=== PATIENT | female | born 1935 | race Caucasian/White ===

== ENCOUNTER 2018-07-21 09:36 | Emergency (ER) | payer OTHER ==
[~2018-07-21] VITALS: Ht 154.9 cm; Wt 82.6 kg
[2018-07-21] MEDS ORDERED: RIVA20TA (11:16)
[2018-07-21] MEDS ORDERED: OMEP20CA12 (11:16)
[2018-07-21] MEDS ORDERED: FURO20TA4 (11:16)
[2018-07-21] MEDS ORDERED: TELM1TAB (11:16)
[2018-07-21] MEDS ORDERED: SOTA80TA (11:16)
[2018-07-21] MEDS ORDERED: IBUP-1779 (11:16)
[2018-07-21] MEDS ORDERED: LEVO25TA5 (11:16)
[2018-07-21] MEDS ORDERED: ATOR40TA70 (11:16)
[2018-07-21 11:28] LABS: BASOPHILS # (AUTO) 0.1 10^3/uL (0.0-0.1); BASOPHILS % (AUTO) 1 % (0-10); EOSINOPHILS # (AUTO) 0.2 10^3/uL (0.0-0.3); EOSINOPHILS % (AUTO) 3 % (0-10); HEMATOCRIT 39 % (35-52); LYMPHOCYTES # (AUTO) 1.5 X 10^3 (1.0-4.0); LYMPHOCYTES % (AUTO) 25 % (12-44); MEAN CORPUSCULAR HEMOGLOBIN 29 PG (25-34); MEAN CORPUSCULAR HGB CONC 33 G/DL (32-36); MEAN CORPUSCULAR VOLUME 89 FL (80-99); MEAN PLATELET VOLUME 10.1 FL (7.4-10.4); MONOCYTES # (AUTO) 0.5 X 10^3 (0.0-1.0); MONOCYTES % (AUTO) 8 % (0-12); NEUTROPHILS # (AUTO) 3.8 X 10^3 (1.8-7.8); NEUTROPHILS % (AUTO) 64 % (42-75); PLATELET COUNT 273 10^3/uL (130-400); RED CELL DISTRIBUTION WIDTH 12.7 % (10.0-14.5)
--- NOTE | 2018-07-21 11:28 | ED Cardiac General ---
History of Present Illness General Chief Complaint: Chest Pain Stated Complaint: LT ARM PAIN Nursing Triage Note: PT PRESENTS TO ED WITH COMPLAINTS L ARM PAIN X 3 DAYS AND CP. PT REPORTS ARM PAIN RADIATES TO HER SHOULDER. PT REPORTS HER ARM PAIN IS WORSE WITH MOVEMENT OF HER ARM. Source: patient Exam Limitations: no limitations History of Present Illness Date Seen by Provider: Jul 21, 2018 Time Seen by Provider: 11:20 Initial Comments The patient is an 82-year-old white female from the [facility]. She reports that she has been having pain in the region of the left shoulder for about 3 days. She also admits to at least an occasional twinge of pain in the chest. She does note that the pain is worse when she moves her arm. She had rather vague chest pain symptoms in 2012 and ultimately had 3 stents placed. She describes no injury or previous troubles with the shoulder. Timing/Duration: 2-3 days Location: substernal, shoulder Activities at Onset: none Prior CP/Workup: cardiac cath, other (stenting 3) NTG SL INSIGHTS MANAGER: No ASA po INSIGHTS MANAGER: No Allergies and Home Medications Allergies Coded Allergies: Penicillins (Verified Allergy, Unknown, 07/21/18) acetaminophen (Verified Allergy, Unknown, 07/21/18) propoxyphene (Verified Allergy, Unknown, 07/21/18) Patient Home Medication List Home Medication List Reviewed: Yes Review of Systems Review of Systems Constitutional: see HPI EENTM: No Symptoms Reported Respiratory: No Symptoms Reported Cardiovascular: See HPI Gastrointestinal: No Symptoms Reported Genitourinary: No Symptoms Reported Musculoskeletal: see HPI Skin: no symptoms reported Psychiatric/Neurological: No Symptoms Reported Endocrine: No Symptoms Reported Hematologic/Lymphatic: No Symptoms Reported Past Embwjlq-Hnvpiu-Arcmdt Hx Patient Social History Alcohol Use: Denies Use Recreational Drug Use: No Smoking Status: Never a Smoker Recent Foreign Travel: No Contact w/Someone Who Travel: No Recent Infectious Disease Expo: No Physical Abuse: No Sexual Abuse: No Mistreated: No Fear: No Past Medical History Surgeries: Yes (STENT X 3) Coronary Stent Respiratory: Yes (UPPER RESP INFECT 3 WEEKS AGO) Coronary Artery Disease, High Cholesterol, Hypertension Neurological: No Genitourinary: No Gastrointestinal: No Musculoskeletal: No Endocrine: Yes Hypothyroidsim Psychosocial: No Blood Disorders: No Physical Exam Vital Signs Vital Signs - First Documented 07/21/18 10:42 Temp 96.6 Pulse 100 Resp 16 B/P (MAP) 165/76 (105) Pulse Ox 97 Capillary Refill : Less Than 3 Seconds Height, Weight, BMI Height: 5'1.00" Weight: 182lbs. oz. 82.347073ly; BMI Method:Stated General Appearance: No Apparent Distress, Anxious HEENT: Normal ENT Inspection Neck: Full Range of Motion, Normal Inspection, Non Tender Respiratory: Chest Non Tender, Lungs Clear, Normal Breath Sounds, No Accessory Muscle Use, No Respiratory Distress Cardiovascular: Regular Rate, Rhythm, No Edema, No Gallop, No JVD, No Murmur Gastrointestinal: Normal Bowel Sounds, No Organomegaly, No Pulsatile Mass, Non Tender Extremity: Normal Capillary Refill, Normal Inspection, Normal Range of Motion, Non Tender, No Calf Tenderness, No Pedal Edema Neurologic/Psychiatric: Alert, Oriented x3, No Motor/Sensory Deficits, Normal Mood/Affect Skin: Normal Color, Warm/Dry Lymphatic: No Adenopathy Other comments There is pain to passive abduction at about 90. There is pain to palpation at over the Rostral portion of the humeral head and along the labrum. Progress/Results/Core Measures Results/Orders Lab Results Laboratory Tests Test 07/21/18 11:07 Range/Units White Blood Count 6.0 4.3-11.0 10^3/uL Red Blood Count 4.42 4.35-5.85 10^6/uL Hemoglobin 13.0 11.5-16.0 G/DL Hematocrit 39 35-52 % Mean Corpuscular Volume 89 80-99 FL Mean Corpuscular Hemoglobin 29 25-34 PG Mean Corpuscular Hemoglobin Concent 33 32-36 G/DL Red Cell Distribution Width 12.7 10.0-14.5 % Platelet Count 273 130-400 10^3/uL Mean Platelet Volume 10.1 7.4-10.4 FL Neutrophils (%) (Auto) 64 42-75 % Lymphocytes (%) (Auto) 25 12-44 % Monocytes (%) (Auto) 8 0-12 % Eosinophils (%) (Auto) 3 0-10 % Basophils (%) (Auto) 1 0-10 % Neutrophils # (Auto) 3.8 1.8-7.8 X 10^3 Lymphocytes # (Auto) 1.5 1.0-4.0 X 10^3 Monocytes # (Auto) 0.5 0.0-1.0 X 10^3 Eosinophils # (Auto) 0.2 0.0-0.3 10^3/uL Basophils # (Auto) 0.1 0.0-0.1 10^3/uL Sodium Level 140 135-145 MMOL/L Potassium Level 3.7 3.6-5.0 MMOL/L Chloride Level 104 98-107 MMOL/L Carbon Dioxide Level 27 21-32 MMOL/L Anion Gap 9 5-14 MMOL/L Blood Urea Nitrogen 37 H 7-18 MG/DL Creatinine 1.34 H 0.60-1.30 MG/DL Estimat Glomerular Filtration Rate 38 BUN/Creatinine Ratio 28 Glucose Level 111 H 70-105 MG/DL Calcium Level 9.7 8.5-10.1 MG/DL Corrected Calcium 9.7 8.5-10.1 MG/DL Total Bilirubin 0.9 0.1-1.0 MG/DL Aspartate Amino Transf (AST/SGOT) 23 5-34 U/L Alanine Aminotransferase (ALT/SGPT) 18 0-55 U/L Alkaline Phosphatase 96 40-136 U/L Troponin I < 0.028 <0.028 NG/ML Total Protein 7.4 6.4-8.2 GM/DL Albumin 4.0 3.2-4.5 GM/DL My Orders Orders - ANNABEL BARKSDALE MD Ekg Tracing (07/21/18 11:20) Cbc With Automated Diff (07/21/18 11:20) Comprehensive Metabolic Panel (07/21/18 11:20) Troponin I (07/21/18 11:20) Chest 1 View, Ap/Pa Only (07/21/18 11:20) Shoulder, Left, 3 Views (07/21/18 11:20) Vital Signs/I&O 07/21/18 10:42 Temp 96.6 Pulse 100 Resp 16 B/P (MAP) 165/76 (105) Pulse Ox 97 Blood Pressure Mean: 105 Departure Communication (Admissions) 1210 findings were discussed with the patient. Troponin was negative cardiogram showed no acute changes. Chest x-ray and left shoulder showed no pathologic changes. The patient was apprised of these findings Impression Primary Impression: left shoulder impingement Disposition: HOME, SELF-CARE Condition: Stable/Unchanged Departure-Patient Inst. Decision time for Depature: 12:11 Referrals: OBI CORREA (PCP) Primary Care Physician Add. Discharge Instructions: All discharge instructions reviewed with patient and/or family. Voiced understanding. Discussed with your provider in [place] relative to the possibility of a cortisone injection in the left shoulder. ANNABEL BARKSDALE MD Jul 21, 2018 11:28
[2018-07-21 11:38] LABS: ALANINE AMINOTRANSFERASE 18 U/L (0-55); ALKALINE PHOSPHATASE 96 U/L (40-136); BILIRUBIN,TOTAL 0.9 MG/DL (0.1-1.0); BUN/CREATININE RATIO 28; CALCIUM 9.7 MG/DL (8.5-10.1); CARBON DIOXIDE 27 MMOL/L (21-32); CHLORIDE 104 MMOL/L (98-107); CREATININE SERUM 1.34 MG/DL (0.60-1.30); GFR ESTIMATED 38; GLUCOSE 111 MG/DL (70-105); POTASSIUM 3.7 MMOL/L (3.6-5.0); SODIUM 140 MMOL/L (135-145); TOTAL PROTEIN 7.4 GM/DL (6.4-8.2)
--- NOTE | 2018-07-21 11:52 | Diagnostic Imaging Report ---
INDICATION: Left shoulder and upper extremity pain. FINDINGS: Single PA view of the chest is obtained. There is air trapping bilaterally. Heart size and pulmonary vascularity are within normal limits. There is mild tortuosity of the thoracic aorta. No consolidation, pneumothorax, or significant pleural fluid is identified. IMPRESSION: No acute abnormality is detected. Dictated by: Dictated on workstation # [id number]
--- NOTE | 2018-07-21 12:07 | NUR ---
IN TALKING TO PT AT THIS TIME.
--- NOTE | 2018-07-21 12:25 | Diagnostic Imaging Report ---
INDICATION: Left arm pain, chest pain. FINDINGS: The glenohumeral joint and AC joints unremarkable. No fracture or dislocation. No abnormal soft tissue calcifications. No opaque loose body. The visualized adjacent ribs and pleura unremarkable. IMPRESSION: Unremarkable three-view left shoulder series. Dictated by: Dictated on workstation # [id number]
[2018-07-21 12:50] VITALS: BP 150/66
== END 2018-07-21 12:50 | disposition home or self-care (01) ==
LOC: ER 09:41
DX: M25.812 Other specified joint disorders, left shoulder (principal); I10 Essential (primary) hypertension; E78.00 Pure hypercholesterolemia, unspecified; I25.10 Atherosclerotic heart disease of native coronary artery without angina pectoris; E03.9 Hypothyroidism, unspecified; Z95.5 Presence of coronary angioplasty implant and graft; Z88.0 Allergy status to penicillin; Z88.5 Allergy status to narcotic agent; Z88.6 Allergy status to analgesic agent
CPT/HCPCS: 36415; 71045; 73030; 80053; 84484; 85025; 93005

== ENCOUNTER 2018-11-14 21:49 | Inpatient (IN) | payer MEDICARE, OTHER ==
[~2018-11-14] VITALS: Ht 162.6 cm; Wt 86.2 kg
[~2018-11-14 21:49] MED LIST: ATOR40TA70 PO; FURO20TA4 PO; IBUP-1779 PO; LEVO25TA5; OMEP20CA12 PO; RIVA20TA2; STL80T; TELM1TAB PO
--- OUTSIDE RECORDS SUMMARY | 2018-11-14 21:52 | XMS REPORT | Continuity of Care Document ---
Author Organization Unknown Address Unknown Allergies There is no data. Medications There is no data. Problems There is no data. Procedures There is no data. Results Test Result Range LIPID PANEL - 10/06/18 08:10 CHOLESTEROL, TOTAL 192 mg/dL <200 HDL CHOLESTEROL 57 mg/dL >50 TRIGLYCERIDES 83 mg/dL <150 LDL-CHOLESTEROL 117 mg/dL (calc) NRG CHOL/HDLC RATIO 3.4 (calc) <5.0 NON HDL CHOLESTEROL 135 mg/dL (calc) <130 CBC - 10/06/18 08:10 WHITE BLOOD CELL COUNT 6.7 Thousand/uL 3.8-10.8 RED BLOOD CELL COUNT 4.46 Million/uL 3.80-5.10 HEMOGLOBIN 13.4 g/dL 11.7-15.5 HEMATOCRIT 40.2 % 35.0-45.0 MCV 90.1 fL 80.0-100.0 MCH 30.0 pg 27.0-33.0 MCHC 33.3 g/dL 32.0-36.0 RDW 12.5 % 11.0-15.0 PLATELET COUNT 257 Thousand/uL 140-400 MPV 10.4 fL 7.5-12.5 ABSOLUTE NEUTROPHILS 4569 cells/uL 1983-0689 ABSOLUTE LYMPHOCYTES 1300 cells/uL 850-3900 ABSOLUTE MONOCYTES 543 cells/uL 200-950 ABSOLUTE EOSINOPHILS 208 cells/uL 15-500 ABSOLUTE BASOPHILS 80 cells/uL 0-200 NEUTROPHILS 68.2 % NRG LYMPHOCYTES 19.4 % NRG MONOCYTES 8.1 % NRG EOSINOPHILS 3.1 % NRG BASOPHILS 1.2 % NRG Encounters ACCT No. Visit Date/Time Discharge Status Pt. Type Provider Facility Loc./Unit Complaint [id number] 10/11/2018 08:00:00 10/11/2018 23:59:59 CLS Outpatient BALDEV [facility]REA [facility] [id number] 10/06/2018 08:00:00 Document Registration
[2018-11-14 22:13] LABS: BASOPHILS # (AUTO) 0.1 10^3/uL (0.0-0.1); BASOPHILS % (AUTO) 1 % (0-10); EOSINOPHILS # (AUTO) 0.3 10^3/uL (0.0-0.3); EOSINOPHILS % (AUTO) 4 % (0-10); HEMATOCRIT 40 % (35-52); HEMOGLOBIN 13.4 G/DL (11.5-16.0); LYMPHOCYTES # (AUTO) 2.1 X 10^3 (1.0-4.0); LYMPHOCYTES % (AUTO) 29 % (12-44); MEAN CORPUSCULAR HEMOGLOBIN 30 PG (25-34); MEAN CORPUSCULAR HGB CONC 34 G/DL (32-36); MEAN CORPUSCULAR VOLUME 88 FL (80-99); MEAN PLATELET VOLUME 9.9 FL (7.4-10.4); MONOCYTES # (AUTO) 0.8 X 10^3 (0.0-1.0); MONOCYTES % (AUTO) 10 % (0-12); NEUTROPHILS % (AUTO) 55 % (42-75); PLATELET COUNT 277 10^3/uL (130-400); RED CELL DISTRIBUTION WIDTH 12.3 % (10.0-14.5); WHITE BLOOD COUNT 7.3 10^3/uL (4.3-11.0)
--- NOTE | 2018-11-14 22:17 | ED Chest Pain ---
General Chief Complaint: Cardiac/General Problems Stated Complaint: LT ARM PAIN Source: patient Exam Limitations: no limitations History of Present Illness Date Seen by Provider: Nov 14, 2018 Time Seen by Provider: 22:00 Initial Comments Patient is an 82-year-old female with history of CAD with multiple stents placed in 2012 at [facility] per Dr. Haywood presents with left arm pain. Patient denies repetitive strain injury or trauma. Arm pain is rated [id number]-esllqtua and is described as aching. Is similar in nature character and pattern his previous coronary disease. It is not associated with nausea vomiting shortness of breath. Patient denies chest pain. No nitroglycerin taken prior to the arrival. Patient's is compliant with blood pressure medication heart medications including Xarelto. No otehr acute symptoms or complaints. Timing/Duration: 4-6 hours Severity/Quality: mild, moderate Location: other (L arm) Radiation: no radiation Activities at Onset: none Prior CP/Workup: cardiac cath Modifying Factors: improves with nitroglycerin ASA po PROGRAM MANAGER TRANSPORTATION: No (Patient declines aspirin in the ED) NTG SL PROGRAM MANAGER TRANSPORTATION: No Associated Symptoms: denies symptoms Allergies and Home Medications Allergies Coded Allergies: Penicillins (Verified Allergy, Unknown, 07/21/18) acetaminophen (Verified Allergy, Unknown, 07/21/18) propoxyphene (Verified Allergy, Unknown, 07/21/18) Patient Home Medication List Home Medication List Reviewed: Yes Review of Systems Review of Systems Constitutional: no symptoms reported EENTM: No Symptoms Reported Respiratory: No Symptoms Reported Cardiovascular: See HPI Gastrointestinal: No Symptoms Reported Genitourinary: No Symptoms Reported Musculoskeletal: no symptoms reported Skin: no symptoms reported Psychiatric/Neurological: No Symptoms Reported, Emotional Problems Hematologic/Lymphatic: No Symptoms Reported Past Ipkimbj-Jsitzi-Xezekf Hx Past Med/Social Hx: Reviewed Nursing Past Med/Soc Hx Patient Social History Recent Foreign Travel: No Contact w/Someone Who Travel: No Past Medical History Surgeries: Yes (STENT X 3) Coronary Stent Respiratory: Yes (UPPER RESP INFECT 3 WEEKS AGO) Coronary Artery Disease, High Cholesterol, Hypertension Neurological: No Genitourinary: No Gastrointestinal: No Musculoskeletal: No Endocrine: Yes Hypothyroidsim Psychosocial: No Blood Disorders: No Physical Exam Vital Signs Vital Signs - First Documented 11/14/18 21:52 Temp 97.3 Pulse 76 Resp 20 B/P (MAP) 205/79 (121) Pulse Ox 98 O2 Delivery Room Air Capillary Refill : Height, Weight, BMI Height: 5'1.00" Weight: 182lbs. oz. 82.228801uk; BMI Method:Stated General Appearance: No Apparent Distress, WD/WN HEENT: PERRL/EOMI, TMs Normal, Normal ENT Inspection Neck: Full Range of Motion, Normal Inspection, Non Tender Respiratory: Chest Non Tender, Lungs Clear, Normal Breath Sounds Cardiovascular: Regular Rate, Rhythm, No Edema, No Gallop, No Murmur Gastrointestinal: Non Tender Extremity: Other (left arm, no pain, tenderness swelling or bruising.) Neurologic/Psychiatric: Alert, Oriented x3, No Motor/Sensory Deficits Skin: Normal Color, Warm/Dry Focused Exam Sepsis Stage: Ruled Out Progress/Results/Core Measures Results/Orders Lab Results Laboratory Tests Test 11/14/18 22:02 Range/Units White Blood Count 7.3 4.3-11.0 10^3/uL Red Blood Count 4.49 4.35-5.85 10^6/uL Hemoglobin 13.4 11.5-16.0 G/DL Hematocrit 40 35-52 % Mean Corpuscular Volume 88 80-99 FL Mean Corpuscular Hemoglobin 30 25-34 PG Mean Corpuscular Hemoglobin Concent 34 32-36 G/DL Red Cell Distribution Width 12.3 10.0-14.5 % Platelet Count 277 130-400 10^3/uL Mean Platelet Volume 9.9 7.4-10.4 FL Neutrophils (%) (Auto) 55 42-75 % Lymphocytes (%) (Auto) 29 12-44 % Monocytes (%) (Auto) 10 0-12 % Eosinophils (%) (Auto) 4 0-10 % Basophils (%) (Auto) 1 0-10 % Neutrophils # (Auto) 4.0 1.8-7.8 X 10^3 Lymphocytes # (Auto) 2.1 1.0-4.0 X 10^3 Monocytes # (Auto) 0.8 0.0-1.0 X 10^3 Eosinophils # (Auto) 0.3 0.0-0.3 10^3/uL Basophils # (Auto) 0.1 0.0-0.1 10^3/uL Sodium Level 136 135-145 MMOL/L Potassium Level 4.2 3.6-5.0 MMOL/L Chloride Level 97 L 98-107 MMOL/L Carbon Dioxide Level 25 21-32 MMOL/L Anion Gap 14 5-14 MMOL/L Blood Urea Nitrogen 43 H 7-18 MG/DL Creatinine 2.08 H 0.60-1.30 MG/DL Estimat Glomerular Filtration Rate 23 BUN/Creatinine Ratio 21 Glucose Level 91 70-105 MG/DL Calcium Level 9.1 8.5-10.1 MG/DL Corrected Calcium 8.9 8.5-10.1 MG/DL Total Bilirubin 0.5 0.1-1.0 MG/DL Aspartate Amino Transf (AST/SGOT) 21 5-34 U/L Alanine Aminotransferase (ALT/SGPT) 18 0-55 U/L Alkaline Phosphatase 107 40-136 U/L Troponin T 19 H <=10 NG/L Total Protein 7.5 6.4-8.2 GM/DL Albumin 4.2 3.2-4.5 GM/DL My Orders Orders - TYRONE VILLARREAL DO Ekg Tracing (11/14/18 22:02) Cbc With Automated Diff (11/14/18 22:02) Comprehensive Metabolic Panel (11/14/18 22:02) Troponin T (11/14/18 22:02) Chest 1 View Ap/Pa Only (11/14/18 22:02) Nitroglycerin 0.4 Mg Btl 25's (Nitrostat (11/14/18 22:15) Medications Given in ED Current Medications Medications Dose Ordered Sig/Ammy Route Start Time Stop Time Status Last Admin Dose Admin Nitroglycerin 1 TAB Q 5 MIN X 3 NEEDED PRN SL 11/14/18 22:15 11/14/18 22:20 0.4 MG Vital Signs/I&O 11/14/18 21:52 Temp 97.3 Pulse 76 Resp 20 B/P (MAP) 205/79 (121) Pulse Ox 98 O2 Delivery Room Air Departure Communication (Admissions) Chest pain syndrome. Pain resolved with nitroglycerin 2. EKG shows sinus rhythm with frequent PACs, no acute ST segment elevation. Borderline troponin elevati on. Patient accepted to [facility] per Dr. Burnett with anticipated cardiology consult. Impression Primary Impression: Acute coronary syndrome Disposition: ADMITTED INPATIENT Condition: Stable Transfer Time Spoke to Accepting Phy: 23:06 (Dr. Burnett) Departure-Patient Inst. Decision time for Depature: 23:06 Referrals: BALDEV CORREA APRN (PCP) Primary Care Physician TYRONE VILLARREAL DO Nov 14, 2018 22:17
[2018-11-14] MEDS: NITROGLYCERIN 0.4 MG SL TABS BTL 25'S SL PRN ×2 (22:20→23:20)
[2018-11-14 22:46] LABS: CREATININE SERUM 2.08 MG/DL (0.60-1.30); POTASSIUM 4.2 MMOL/L (3.6-5.0)
[2018-11-14 22:47] LABS: ALBUMIN 4.2 GM/DL (3.2-4.5); BILIRUBIN,TOTAL 0.5 MG/DL (0.1-1.0); CALCIUM 9.1 MG/DL (8.5-10.1); TOTAL PROTEIN 7.5 GM/DL (6.4-8.2)
[2018-11-14] MEDS ORDERED: ASPIRIN 81 MG CHEW (CHILDREN'S ASA) PO ONE (23:15)
[2018-11-14 23:49] VITALS: BP 138/57
[2018-11-15] VITALS (9 sets, daily range): BP systolic 129–184; BP diastolic 53–78
--- OUTSIDE RECORDS SUMMARY | 2018-11-15 00:07 | XMS REPORT | Continuity of Care Document ---
[...] 10.4 fL 7.5-12.5 ABSOLUTE NEUTROPHILS 4569 cells/uL [id number] ABSOLUTE LYMPHOCYTES 1300 cells/uL 850-3900 ABSOLUTE MONOCYTES 543 cells/uL 200-950 ABSOLUTE EOSINOPHILS 208 cells/uL 15-500 ABSOLUTE BASOPHILS 80 cells/uL 0-200 NEUTROPHILS 68.2 % NRG LYMPHOCYTES 19.4 % NRG MONOCYTES 8.1 % NRG EOSINOPHILS 3.1 % NRG BASOPHILS 1.2 % NRG Encounters ACCT No. Visit Date/Time Discharge Status Pt. Type Provider Facility Loc./Unit Complaint [id number] 10/11/2018 08:00:00 10/11/2018 23:59:59 CLS Outpatient [facility] [id number] 10/06/2018 08:00:00 Document Registration
--- NOTE | 2018-11-15 01:05 | NUR ---
LOU WOODRUFF admitted to room 419-1, with an admitting diagnosis of Acute coronary syndrome, on 11/14/18 from ED via EMS, accompanied by EMS STAFF. LOU WOODRUFF introduced to surroundings, call light, bed controls, phone, TV, temperature control, lights, meal times, smoking policy, visitor policy, side rail policy, bathrooms and showers. Patient Rights given to patient in the handbook. LOU WOODRUFF verbalizes understanding that [facility] is not responsible for the loss or damage to any personal effects or valuables that are kept in the patients posession during their hospitalization. Patient Care Plans were discussed with the PT. LOU WOODRUFF verbalizes understanding of Interdisciplinary Patient Education. Patient and/or family were informed about the Rapid Response Team and its purpose.
[2018-11-15] MEDS ORDERED: D5 1/2 NS 1000 ML IV SOLUTION 1,000 ML IV SCH (02:15)
[2018-11-15] MEDS ORDERED: NITROGLYCERIN 0.4 MG SL TABS BTL 25'S SL PRN (02:15)
[2018-11-15 05:39] LABS: BASOPHILS # (AUTO) 0.1 10^3/uL (0.0-0.1); BASOPHILS % (AUTO) 1 % (0-10); EOSINOPHILS # (AUTO) 0.3 10^3/uL (0.0-0.3); EOSINOPHILS % (AUTO) 5 % (0-10); HEMATOCRIT 35 % (35-52); LYMPHOCYTES # (AUTO) 1.9 X 10^3 (1.0-4.0); LYMPHOCYTES % (AUTO) 30 % (12-44); MEAN CORPUSCULAR HEMOGLOBIN 30 PG (25-34); MEAN CORPUSCULAR HGB CONC 34 G/DL (32-36); MEAN CORPUSCULAR VOLUME 88 FL (80-99); MEAN PLATELET VOLUME 10.2 FL (7.4-10.4); MONOCYTES # (AUTO) 0.6 X 10^3 (0.0-1.0); MONOCYTES % (AUTO) 10 % (0-12); NEUTROPHILS # (AUTO) 3.3 X 10^3 (1.8-7.8); NEUTROPHILS % (AUTO) 54 % (42-75); PLATELET COUNT 218 10^3/uL (130-400); RED CELL DISTRIBUTION WIDTH 12.3 % (10.0-14.5); WHITE BLOOD COUNT 6.2 10^3/uL (4.3-11.0)
[2018-11-15 06:00] LABS: ALANINE AMINOTRANSFERASE 16 U/L (0-55); ALBUMIN 3.6 GM/DL (3.2-4.5); ALKALINE PHOSPHATASE 92 U/L (40-136); BILIRUBIN,TOTAL 0.5 MG/DL (0.1-1.0); BUN/CREATININE RATIO 25; CALCIUM 8.9 MG/DL (8.5-10.1); CARBON DIOXIDE 25 MMOL/L (21-32); CHLORIDE 103 MMOL/L (98-107); CHOLESTEROL 145 MG/DL (< 200); CREATININE SERUM 1.63 MG/DL (0.60-1.30); GFR ESTIMATED 30; GLUCOSE 128 MG/DL (70-105); HDL CHOLESTEROL 43 MG/DL (40-60); POTASSIUM 3.6 MMOL/L (3.6-5.0); SODIUM 137 MMOL/L (135-145); TOTAL PROTEIN 6.3 GM/DL (6.4-8.2); TRIGLYCERIDES 68 MG/DL (<150); VLDL CHOLESTEROL 14 MG/DL (5-40)
--- NOTE | 2018-11-15 06:39 | Diagnostic Imaging Report ---
INDICATION: Left arm pain, history of myocardial infarction. COMPARISON STUDY: Chest from July 21. FINDINGS: Frontal view of the chest demonstrates the lungs to be clear. The heart size and vascularity are normal. Tortuosity of the aorta is again identified. IMPRESSION: There are no acute findings. Dictated by: Dictated on workstation # [id number]
--- NOTE | 2018-11-15 08:21 | Consultation-Cardiology ---
HPI-Cardiology Cardiology Consultation Date of Consultation 11/15/18 Date of Admission Time Seen by Provider: 08:17 Indication: chest pain HPI 82 years old lady with history of coronary artery disease, hypertension hyperlipidemia, has been having left arm pain similar to the pain that she had prior to her stents, waxing and waning, got worse yesterday, responded to nitroglycerin, currently feeling better. Denied any active pain, having some dyspnea on exertion. No palpitation, syncope or near syncopal episodes. No claudications Home Medications & Allergies Allergies: Coded Allergies: Penicillins (Verified Allergy, Unknown, 07/21/18) propoxyphene (Verified Allergy, Unknown, 07/21/18) Home Medication List Reviewed: Yes ZAX-Sljaum-Jbtcyx Hx Patient Social History Marital Status: Employed/Student: retired Alcohol Use: Denies Use Recreational Drug Use: No 2nd Hand Smoke Exposure: No Recent Foreign Travel: No Recent Infectious Disease Expo: No Recent Hopitalizations: No Immunizations Up To Date Date of Pneumonia Vaccine: Nov 15, 2013 Past Medical History discussed below Family Medical History Family Medical Hx noncontributory to her current condition Review of Systems-General Review of Systems Constitutional: no symptoms reported, see HPI, malaise EENTM: see HPI, no symptoms reported Respiratory: see HPI; No cough; dyspnea on exertion; No hemoptysis, No orthopnea, No phlegm, No short of breath, No stridor, No wheezing, No other Cardiovascular: see HPI, chest pain; No edema, No Hx of Intervention, No palpitations, No syncope, No vascular heart diseas, No other Gastrointestinal: no symptoms reported, see HPI Genitourinary: no symptoms reported, see HPI Musculoskeletal: see HPI Skin: no symptoms reported, see HPI Psychiatric/Neurological: No Symptoms Reported, See HPI, Emotional Problems Reviewed Test Results Reviewed Test Results Lab Laboratory Tests Test 11/14/18 22:02 11/15/18 05:05 Range/Units White Blood Count 7.3 6.2 4.3-11.0 10^3/uL Red Blood Count 4.49 4.00 L 4.35-5.85 10^6/uL Hemoglobin 13.4 12.0 11.5-16.0 G/DL Hematocrit 40 35 35-52 % Mean Corpuscular Volume 88 88 80-99 FL Mean Corpuscular Hemoglobin 30 30 25-34 PG Mean Corpuscular Hemoglobin Concent 34 34 32-36 G/DL Red Cell Distribution Width 12.3 12.3 10.0-14.5 % Platelet Count 277 218 130-400 10^3/uL Mean Platelet Volume 9.9 10.2 7.4-10.4 FL Neutrophils (%) (Auto) 55 54 42-75 % Lymphocytes (%) (Auto) 29 30 12-44 % Monocytes (%) (Auto) 10 10 0-12 % Eosinophils (%) (Auto) 4 5 0-10 % Basophils (%) (Auto) 1 1 0-10 % Neutrophils # (Auto) 4.0 3.3 1.8-7.8 X 10^3 Lymphocytes # (Auto) 2.1 1.9 1.0-4.0 X 10^3 Monocytes # (Auto) 0.8 0.6 0.0-1.0 X 10^3 Eosinophils # (Auto) 0.3 0.3 0.0-0.3 10^3/uL Basophils # (Auto) 0.1 0.1 0.0-0.1 10^3/uL Sodium Level 136 137 135-145 MMOL/L Potassium Level 4.2 3.6 3.6-5.0 MMOL/L Chloride Level 97 L 103 98-107 MMOL/L Carbon Dioxide Level 25 25 21-32 MMOL/L Anion Gap 14 9 5-14 MMOL/L Blood Urea Nitrogen 43 H 40 H 7-18 MG/DL Creatinine 2.08 H 1.63 H 0.60-1.30 MG/DL Estimat Glomerular Filtration Rate 23 30 BUN/Creatinine Ratio 21 25 Glucose Level 91 128 H 70-105 MG/DL Calcium Level 9.1 8.9 8.5-10.1 MG/DL Corrected Calcium 8.9 9.2 8.5-10.1 MG/DL Total Bilirubin 0.5 0.5 0.1-1.0 MG/DL Aspartate Amino Transf (AST/SGOT) 21 20 5-34 U/L Alanine Aminotransferase (ALT/SGPT) 18 16 0-55 U/L Alkaline Phosphatase 107 92 40-136 U/L Troponin T 19 H <=10 NG/L Total Protein 7.5 6.3 L 6.4-8.2 GM/DL Albumin 4.2 3.6 3.2-4.5 GM/DL Troponin I < 0.028 <0.028 NG/ML Triglycerides Level 68 <150 MG/DL Cholesterol Level 145 < 200 MG/DL LDL Cholesterol Direct 89 1-129 MG/DL VLDL Cholesterol 14 5-40 MG/DL HDL Cholesterol 43 40-60 MG/DL Physical Exam Physical Exam Vital Signs Vital Signs - First Documented 11/14/18 21:52 Temp 97.3 Pulse 76 Resp 20 B/P (MAP) 205/79 (121) Pulse Ox 98 O2 Delivery Room Air Capillary Refill : Less Than 3 Seconds Height, Weight, BMI Height: 5'4.00" Weight: 190lbs. 0.7oz. 86.756837dw; 32.6 BMI Method:Stated General Appearance: No Apparent Distress, WD/WN HEENT: PERRL/EOMI, TMs Normal, Normal ENT Inspection Neck: Full Range of Motion, Normal Inspection, Non Tender Respiratory: Chest Non Tender, Lungs Clear, Normal Breath Sounds Cardiovascular: Regular Rate, Rhythm, No Edema, No Gallop, No Murmur Gastrointestinal: Non Tender Extremity: Other (left arm, no pain, tenderness swelling or bruising.) Neurologic/Psychiatric: Alert, Oriented x3, No Motor/Sensory Deficits Skin: Normal Color, Warm/Dry A/P-Cardiology Admission Diagnosis Chest pain Coronary artery disease Hypertension Hyperlipidemia Assessment/Plan Chest pain, resulting in angina, cardiac enzymes and EKG did not show any acute abnormality. Currently pain-free. Coronary artery disease, history of multiple intervention the past, had a total of 3 stents. No recent Cardec workup, planning to evaluate stress test Paroxysmal atrial fibrillation, maintained on sotalol and Xarelto. Continue to monitor Hypertension, monitor blood pressure Hyperlipidemia. Monitor lipids Prediabetes Clinical Quality Measures AMI/AHF: ASA po Prior to arrival: No (Patient declines aspirin in the ED) DVT/VTE Risk/Contraindication: Risk Factor Score Per Nursin RFS Level Per Nursing on Admit: 2=Moderate GEOFF THOMSON MD Nov 15, 2018 08:21
[2018-11-15] MEDS ORDERED: REGADENOSON 0.4 MG/5 ML SYR (LEXISCAN) IV ONE ×2 (08:30→09:01)
[2018-11-15] MEDS ORDERED: LEVO25TA2 PO (08:38)
[2018-11-15] MEDS ORDERED: SOTA80TA62 PO (08:38)
[2018-11-15] MEDS ORDERED: RIVA20TA PO (08:38)
[2018-11-15] MEDS ORDERED: CATHETER FLUSH 10 ML SYR IV PRN (08:45)
--- NOTE | 2018-11-15 08:49 | NUR ---
PATIENT OUT OF ROOM AT THIS TIME, I UPDATED THE MED REC WITH THE EXT MED HX. I WILL CHECK BACK LATER TO VERIFY WITH THE PATIENT. Addendum: 11/15/18 at 1032 by TAMARA MACHADO [facility] WENT OVER THE EXT MED HX WITH THE PATIENT, SHE WAS ABLE TO TELL ME WHAT TIMES SHE TAKES EACH MEDICATION. SHE TAKES MAGNESIUM OTC DAILY.
[2018-11-15] MEDS ORDERED: MAGN500C15 PO (10:29)
[2018-11-15] MEDS: NS IV 1000 ML 1,000 ML IV SCH ×2 (13:02→23:46)
[2018-11-15 13:32] LABS: INR 1.5 (0.8-1.4); PROTHROMBIN TIME PATIENT 18.8 SEC (12.2-14.7)
--- NOTE | 2018-11-15 14:22 | STRESS TEST ---
DATE OF SERVICE: 11/15/2018 LEXISCAN MYOVIEW STRESS TEST REFERRING PHYSICIAN: Dr. Burnett. Baseline heart rate is 72. Baseline blood pressure is 191/92. Baseline EKG is sinus rhythm with no ischemic changes. In summary, the patient was injected with 9.05 mCi of technetium-99 Myoview and the resting images were obtained. Then, the patient received 0.4 mg of Lexiscan followed by 27.1 mCi of technetium-99 Myoview. Throughout the test, there were no EKG changes. The resting and stress images were reviewed and compared in the short axis, horizontal long axis, and vertical long axis views. Review of the images showed reversible ischemia involving the inferior wall and inferolateral wall. SSS is 7, SDS 5, TID value 1.19. On the gated images, the left ventricle appeared to be normal size with normal contractility. Calculated ejection fraction is 74%. CONCLUSION: 1. The patient tolerated Lexiscan well. 2. Reversible ischemia involving the inferior wall and inferolateral wall. 3. Normal left ventricular size with normal contractility. Calculated ejection fraction is 75%. Job ID: [id number] DocumentID: [id number] Dictated Date: 11/15/2018 12:08:51 Sports Development Officer Date: 11/15/2018 14:21:50 Dictated By: GEOFF THOMSON MD
--- NOTE | 2018-11-15 14:32 | History & Physicial ([facility]) ---
HPI History of Present Illness: 82 yo F that presented to ER with left arm pain and numbness. States that it is similar pain to when she had her heart attack and stents placed last time. She just returned from stress test and she states that her arm pain came back during the test. Denies any chest pain or shortness of breath. Has a h/o stent placeme nt in 2012 and follows with cardiology in [place]. No recent US. Has had episodes of A fib in the past and is on blood thinner. Source: patient, family (Daughter) Exam Limitations: no limitations Date seen by provider: Nov 15, 2018 Time Seen by Provider: 10:15 Attending Physician Flor Burnett MD PCP Niyah Lopez Aprn Consult Date of Admission Nov 14, 2018 at 23:00 Home Medications Home Medications Reviewed patient Home Medication Reconciliation performed by pharmacy medication reconciliations health care sanitary technician and/or nursing. Patients Allergies have been reviewed. Allergies Coded Allergies: Penicillins (Verified Allergy, Unknown, 07/21/18) acetaminophen (Verified Allergy, Unknown, 07/21/18) propoxyphene (Verified Allergy, Unknown, 07/21/18) BIR-[place]-Nvivcs Hx Patient Social History Marrital Status: Employed/Student: retired Alcohol Use: Denies Use Recreational Drug Use: No 2nd Hand Smoke Exposure: No Recent Foreign Travel: No Contact w/other who traveled: No Recent Hopitalizations: No Recent Infectious Disease Expo: No Immunizations Up To Date Date of Pneumonia Vaccine: Nov 15, 2013 Past Medical History CAD w/ 2 stents placed in 2012 Pre DM HTN Hypothyroidism Family Medical History Significant Family History: CAD Under 55 Years Old, CAD Over 55 Years Old, Diabetes, Stroke Review of Systems ([facility]) Constitutional: no symptoms reported EENTM: no symptoms reported; No nose congestion, No throat pain, No throat swelling Respiratory: no symptoms reported; No cough, No dyspnea on exertion, No short of breath Cardiovascular: chest pain; No edema, No palpitations Gastrointestinal: no symptoms reported; No abdominal pain, No constipation, No diarrhea, No nausea, No vomiting Genitourinary: no symptoms reported; No dysuria, No frequency, No hematuria Musculoskeletal: no symptoms reported Skin: no symptoms reported Psychiatric/Neurological: No Symptoms Reported Reviewed Test Results Reviewed Test Results Lab Laboratory Tests Test 11/14/18 22:02 11/15/18 05:05 11/15/18 13:05 Range/Units White Blood Count 7.3 6.2 4.3-11.0 10^3/uL Red Blood Count 4.49 4.00 L 4.35-5.85 10^6/uL Hemoglobin 13.4 12.0 11.5-16.0 G/DL Hematocrit 40 35 35-52 % Mean Corpuscular Volume 88 88 80-99 FL Mean Corpuscular Hemoglobin 30 30 25-34 PG Mean Corpuscular Hemoglobin Concent 34 34 32-36 G/DL Red Cell Distribution Width 12.3 12.3 10.0-14.5 % Platelet Count 277 218 130-400 10^3/uL Mean Platelet Volume 9.9 10.2 7.4-10.4 FL Neutrophils (%) (Auto) 55 54 42-75 % Lymphocytes (%) (Auto) 29 30 12-44 % Monocytes (%) (Auto) 10 10 0-12 % Eosinophils (%) (Auto) 4 5 0-10 % Basophils (%) (Auto) 1 1 0-10 % Neutrophils # (Auto) 4.0 3.3 1.8-7.8 X 10^3 Lymphocytes # (Auto) 2.1 1.9 1.0-4.0 X 10^3 Monocytes # (Auto) 0.8 0.6 0.0-1.0 X 10^3 Eosinophils # (Auto) 0.3 0.3 0.0-0.3 10^3/uL Basophils # (Auto) 0.1 0.1 0.0-0.1 10^3/uL Sodium Level 136 137 135-145 MMOL/L Potassium Level 4.2 3.6 3.6-5.0 MMOL/L Chloride Level 97 L 103 98-107 MMOL/L Carbon Dioxide Level 25 25 21-32 MMOL/L Anion Gap 14 9 5-14 MMOL/L Blood Urea Nitrogen 43 H 40 H 7-18 MG/DL Creatinine 2.08 H 1.63 H 0.60-1.30 MG/DL Estimat Glomerular Filtration Rate 23 30 BUN/Creatinine Ratio 21 25 Glucose Level 91 128 H 70-105 MG/DL Calcium Level 9.1 8.9 8.5-10.1 MG/DL Corrected Calcium 8.9 9.2 8.5-10.1 MG/DL Total Bilirubin 0.5 0.5 0.1-1.0 MG/DL Aspartate Amino Transf (AST/SGOT) 21 20 5-34 U/L Alanine Aminotransferase (ALT/SGPT) 18 16 0-55 U/L Alkaline Phosphatase 107 92 40-136 U/L Troponin T 19 H <=10 NG/L Total Protein 7.5 6.3 L 6.4-8.2 GM/DL Albumin 4.2 3.6 3.2-4.5 GM/DL Troponin I < 0.028 <0.028 NG/ML Triglycerides Level 68 <150 MG/DL Cholesterol Level 145 < 200 MG/DL LDL Cholesterol Direct 89 1-129 MG/DL VLDL Cholesterol 14 5-40 MG/DL HDL Cholesterol 43 40-60 MG/DL Prothrombin Time 18.8 H 12.2-14.7 SEC INR Comment 1.5 H 0.8-1.4 Activated Partial Thromboplast Time 36 H 24-35 SEC Physical Exam-([facility]) Physical Exam Vital Signs VS - Last 72 Hours, by Label 11/14/18 11/14/18 11/14/18 11/15/18 21:52 23:49 23:50 01:18 Temp 97.3 97.8 Pulse 76 54 53 55 Resp 20 20 18 18 B/P (MAP) 205/79 (121) 138/57 (84) 138/57 (84) 160/72 Pulse Ox 98 97 97 97 O2 Delivery Room Air Room Air Room Air 11/15/18 11/15/18 11/15/18 11/15/18 01:30 02:28 03:43 07:00 Temp 97.6 Pulse 52 58 60 Resp 18 B/P (MAP) 143/76 (98) Pulse Ox 97 96 O2 Delivery Room Air Room Air 11/15/18 11/15/18 11/15/18 11/15/18 08:00 08:00 12:00 12:00 Temp 98.6 98.3 Pulse 50 55 54 Resp 18 20 B/P (MAP) 152/76 (101) 184/75 (111) Pulse Ox 99 99 95 O2 Delivery Room Air Room Air Room Air 11/15/18 12:00 Temp 98.3 Pulse 55 Resp 20 B/P (MAP) 184/75 (111) Pulse Ox 95 O2 Delivery Room Air Capillary Refill : Less Than 3 Seconds General Appearance: WD/WN, no apparent distress HEENT: PERRL/EOMI Neck: non-tender, full range of motion, supple Respiratory: chest non-tender, lungs clear, normal breath sounds, no respiratory distress Cardiovascular: normal peripheral pulses, regular rate, rhythm, no edema, no murmur Gastrointestinal: normal bowel sounds, non tender, soft, no organomegaly Back: no CVA tenderness, no vertebral tenderness Extremities: no calf tenderness, normal capillary refill, pedal edema (1+) Neurologic/Psychiatric: chin strap maker II-XII nml as tested, no motor/sensory deficits, alert, normal mood/affect, oriented x 3 Skin: normal color, warm/dry Lymphatic: no adenopathy Assessment/Plan Assessment/Plan Admission Status: Inpatient Order (span 2 midnights) Reason for Inpatient Admission: Patient needs stress and possible cath (1) Angina at rest Status: Acute Assessment & Plan: - Stress test this AM, results pending, Repeat Trop neg, Cardiology consulted (2) CAD (coronary artery disease) Status: Chronic Qualifiers: Qualified Codes: I25.110 - Atherosclerotic heart disease of [place] coronary artery with unstable angina pectoris (3) HTN (hypertension) Status: Chronic Qualifiers: Qualified Codes: I10 - Essential (primary) hypertension (4) HLD (hyperlipidemia) Status: Chronic Qualifiers: Qualified Codes: E78.5 - Hyperlipidemia, unspecified (5) Atrial fibrillation Status: Chronic Assessment & Plan: - On Eliquis Qualifiers: Qualified Codes: I48.0 - Paroxysmal atrial fibrillation (6) Acute kidney insufficiency Status: Acute Assessment & Plan: - Likely 2/2 dehydration, will continue to monitor with hydration Clinical Quality Measures AMI/AHF: ASA po Prior to arrival: No (Patient declines aspirin in the ED) DVT/VTE Risk/Contraindication: Risk Factor Score Per Nursin RFS Level Per Nursing on Admit: 2=Moderate FLOR BURNETT MD Nov 15, 2018 14:32
[2018-11-15] MEDS ORDERED: fentaNYL INJECTION 100 MCG/2 ML AMP ONE (16:04)
[2018-11-15] MEDS ORDERED: MIDAZOLAM 5 MG/5 ML (VERSED) VIAL ONE (16:04)
[2018-11-15] MEDS ORDERED: LIDOCAINE 1% INJ 20 ML 20 ML VIAL ONE (16:04)
[2018-11-15] MEDS ORDERED: HEParin (CATH LAB) 1,000 ML IV ONE ×2 (16:04→16:05)
[2018-11-15] MEDS ORDERED: ACETAMINOPHEN 325 MG TABLET ONE (16:11)
[2018-11-15] MEDS: ACETAMINOPHEN 325 MG TABLET PO PRN (16:20)
--- NOTE | 2018-11-15 17:13 | Cardiac Cath Report ---
Cardiac Cath Report Physician (s)/Citizenship Teacher (s) Physician GEOFF THOMSON MD Pre-Procedure Diagnosis Pre-Procedure Diagnosis: chest pain, coronary artery disease Post-Procedure Note Procedure Start Date: Nov 15, 2018 Name of Procedure: Left heart catheterization Findings/Procedure Note PROCEDURE NOTE: 82 years old lady with history of coronary artery disease multiple intervention, has been having chest pain, admitted to the hospital, Cardec enzymes were negative, underwent stress test which showed inferior wall ischemia. After explaining the procedure to the patient, all pros and cons were explained, all questions were answered. The patient signed the consent and then she was placed on the cardiac catheterization laboratory. Groin was prepped SL fashion local anesthesia was used. Sheath placed in the right femoral artery. Ramirez right and left catheter were used to access the coronary system. Pigtail was used to access the left ventricular cavity. Left ventriculogram was not done, pressure was measured At the end of the procedure the sheath was removed. Closure device was used FINDINGS: Hemodynamics LV 151/20, end-diastolic pressure of 20 Aorta 166/68 mean of 79 ANATOMY: Left Main is calcified with moderate stenosis at the midportion Left Anterior Descending is small to moderate in size with mild disease nonobstructive disease Left Circumflex is moderate in size, stent in the mid circumflex artery is patent with good flow Right Coronory Artery is dominant artery, heavily calcified artery at the ostium with moderate stenosis, 2 stents at the midportion that are patent, small vessel disease distally LV Gram was not done, pressure was measured CONCLUSION: 1. Moderate stenosis at the ostium of the right coronary artery that is heavily calcified, 2 stents in the midright coronary artery are patent with small vessel disease distally. No significant obstructive disease was noted. 2. Calcified left main coronary artery with moderate stenosis nonobstructive disease 3. Patent stent in the mid circumflex artery with no obstructive disease 4. Mild disease in the LAD 5. Mildly elevated left ventricular end-diastolic pressure, small gradient across the aortic valve DISCUSSION AND RECOMMENDATION: patient has small vessel disease in the right coronary artery and heavily calcified ostial right coronary artery lesion that might be responsible for the ischemia on the recurrent chest pain, I recommend maximizing medical therapy, will consider high risk intervention to the ostium of the right coronary artery, continue to monitor the lesion in the left main Anesthesia Type: Conscious Sedation Estimated blood loss (mL): 25 ml Contrast Amount: 30 ml Total Radiation Dose: 471 mGy Post-Procedure Diagnosis Post-operative diagnosis: Unstable angina Coronary artery disease Hypertension Hyperlipidemia GEOFF THOMSON MD Nov 15, 2018 17:13
[2018-11-15] MEDS ORDERED: NON-FORMULARY MEDICATION 1 EA EA (Ibuprofen 400 MG) PO PRN (17:15)
[2018-11-15] MEDS ORDERED: IBUPROFEN TABLET 200 MG TAB PO PRN (17:30)
[2018-11-15] MEDS ORDERED: ATORVASTATIN 40 MG (LIPITOR) TABLET PO SCH (18:00)
[2018-11-15] MEDS ORDERED: RIVAROXABAN 20 MG TABLET (XARELTO) PO SCH (18:00)
[2018-11-15] MEDS ORDERED: SOTALOL HCL 40 MG PO SCH (21:00)
[2018-11-15] MEDS: SOTALOL 80 MG (BETAPACE) TAB PO SCH (21:17)
--- NOTE | 2018-11-15 22:22 | NUR ---
Pt transferred to rm [id number]- report given to Nicole
--- NOTE | 2018-11-15 22:30 | NUR ---
Patient transferred from ICU accompanied by staff and family. Personal belongings with patient. Report received from Ekta. Voices no complain at times time
[2018-11-16] VITALS: BP 143/67
[2018-11-16] MEDS: ACETAMINOPHEN 325 MG TABLET PO PRN (03:54)
[2018-11-16 04:00] VITALS: BP 164/72
[2018-11-16] MEDS ORDERED: FUROSEMIDE 20 MG (LASIX) TAB PO SCH (05:00)
[2018-11-16] MEDS ORDERED: LEVOTHYROXINE 25 MCG (LEVOTHROID) TAB PO SCH (05:00)
[2018-11-16 05:58] LABS: BASOPHILS % (AUTO) 1 % (0-10); EOSINOPHILS # (AUTO) 0.2 10^3/uL (0.0-0.3); EOSINOPHILS % (AUTO) 3 % (0-10); HEMATOCRIT 35 % (35-52); HEMOGLOBIN 11.8 G/DL (11.5-16.0); LYMPHOCYTES # (AUTO) 1.2 X 10^3 (1.0-4.0); LYMPHOCYTES % (AUTO) 18 % (12-44); MEAN CORPUSCULAR HEMOGLOBIN 30 PG (25-34); MEAN CORPUSCULAR HGB CONC 34 G/DL (32-36); MEAN CORPUSCULAR VOLUME 89 FL (80-99); MEAN PLATELET VOLUME 10.1 FL (7.4-10.4); MONOCYTES # (AUTO) 0.7 X 10^3 (0.0-1.0); MONOCYTES % (AUTO) 11 % (0-12); NEUTROPHILS # (AUTO) 4.3 X 10^3 (1.8-7.8); NEUTROPHILS % (AUTO) 67 % (42-75); PLATELET COUNT 211 10^3/uL (130-400); RED CELL DISTRIBUTION WIDTH 12.5 % (10.0-14.5); WHITE BLOOD COUNT 6.5 10^3/uL (4.3-11.0)
[2018-11-16 06:16] LABS: INR 1.3 (0.8-1.4); PROTHROMBIN TIME PATIENT 16.3 SEC (12.2-14.7)
[2018-11-16 06:31] LABS: ALBUMIN 3.4 GM/DL (3.2-4.5); BILIRUBIN,TOTAL 0.5 MG/DL (0.1-1.0); CALCIUM 9.1 MG/DL (8.5-10.1); CREATININE SERUM 1.29 MG/DL (0.60-1.30); POTASSIUM 4.2 MMOL/L (3.6-5.0); TOTAL PROTEIN 6.1 GM/DL (6.4-8.2)
[2018-11-16] MEDS ORDERED: [UNRECOGNIZED DRUG - OTHER] PO SCH (07:00)
[2018-11-16] MEDS ORDERED: OMEPRAZOLE 20 MG (PriLOSEC) CAP NON-FORMULARY PO SCH (07:00)
[2018-11-16] MEDS ORDERED: LOSARTAN 100 MG (COZAAR) TABLET PO SCH (07:00)
[2018-11-16] MEDS ORDERED: PANTOPRAZOLE 20 MG TABLET (PROTONIX) PO SCH (07:00)
[2018-11-16] MEDS ORDERED: HYDROCHLOROTHIAZIDE 25 MG (HCTZ) TAB PO SCH (07:00)
[2018-11-16 08:00] VITALS: BP 161/70
--- NOTE | 2018-11-16 08:12 | Cardiac Procedure Note-CS/ASA ---
Pre-Procedure Note Pre-Op Procedure Note H&P Reviewed The H&P was reviewed, patient examined and no changes noted. Date H&P Reviewed: Nov 15, 2018 Time H&P Reviewed: 13:00 Conscious Sedation Pre-Proced Time 13:00 ASA Score 3 For ASA 3 and 4: Consider anesthesia and medical clearance. Also, for patients with a history of failed moderate sedation consider anesthesia. Airway Lungs Heart ASA score ASA 1: a normal healthy patient ASA 2: a patient with a mild systemic disease (mid diabetes, controlled hypertension, obesity x ASA 3: a patient with a severe systemic disease that limits activity (angina, COPD, prior Myocardial infarction) ASA 4: a patient with an incapacitating disease that is a constant threat to life (CHF, renal failure) ASA 5: a moribund patient not expected to survive 24 hrs. (ruptured aneurysm) ASA 6: a declared brain- patient whose organs are being harvested. For emergent operations, add the letter E after the classification Mallampati Classification Grade 3 Sedation Plan Analgesia, Amnesia, Plan communicated to team members, Discussed options with patient/fam, Discussed risks with patient/fam The patient is an appropriate candidate to undergo the planned procedure, sedation, and anesthesia. The patient immediately re-assessed prior to indication. GEOFF THOMSON MD Nov 16, 2018 08:12
[2018-11-16] MEDS: SOTALOL 80 MG (BETAPACE) TAB PO SCH (08:33)
[2018-11-16] MEDS: NS IV 1000 ML 1,000 ML IV SCH (09:45)
--- NOTE | 2018-11-16 11:57 | Cardiology Progress Note ---
Subjective Date Seen by Provider: Nov 16, 2018 Time Seen by Provider: 11:54 Subjective/Events-last exam Patient here for follow up, denies any further episode of chest pain, denies dyspnea. Review of Systems General: No Chills, No Night Sweats, No Fatigue, No Malaise, No Appetite, No Other HEENT: No Head Aches, No Visual Changes, No Eye Pain, No Ear Pain, No Dysphas ia, No Sinus Congestion, No Post Nasal Drip, No Sore Throat, No Other Pulmonary: Dyspnea; No Cough, No Pleuritic Chest Pain, No Other Cardiovascular: Edema; No: Chest Pain, Palpitations, Orthopnea, Paroxysmal Noc. Dyspnea, Lt Headedness, Other Objective-Cardiology Exam Last Set of Vital Signs Vital Signs 11/16/18 12:00 Temp 98.4 Pulse 58 Resp 18 B/P (MAP) 146/71 (96) Pulse Ox 98 O2 Delivery Room Air Capillary Refill : Less Than 3 SecondsLess Than 3 Seconds I&O Intake and Output 11/16/18 00:00 Intake Total 1520 ml Output Total 2025 ml Balance -505 ml Intake Oral 520 ml IV Total 1000 ml Output Urine Total 2025 ml # Voids 5 Daily Weight Change No No General: Alert, Oriented X3, Cooperative HEENT: Atraumatic, PERRLA Neck: Supple, No JVD, No Thyromegaly Lungs: Clear to Auscultation, Normal Air Movement Heart: Regular Rate, Normal S1, Normal S2, No Murmurs Abdomen: Normal Bowel Sounds, Soft, No Tenderness, No Hepatosplenomegaly, No Masses Extremities: No Clubbing, No Cyanosis, No Edema, Normal Pulses, No Tenderness/Swelling Skin: No Rashes, No Breakdown, No Significant Lesion Neuro: Normal Gait, Normal Speech, Strength at 5/5 X4 Ext, Normal Tone, Sensation Intact Psych/Mental Status: Mental Status NL, Mood NL Results Lab Laboratory Tests 11/16/18 05:48 A/P-Cardiology Admission Diagnosis Chest pain Coronary artery disease Hypertension Hyperlipidemia Assessment/Plan Chest pain, resolved. Coronary artery disease, history of multiple intervention the past, had a total of 3 stents. Underwent cardiac catheterization yesterday after having an abnormal stress test revealing moderate stenosis at the ostium of the right coronary artery that is heavily calcified, 2 stents in the midright coronary artery are patent with small vessel disease distally. No significant obstructive disease was noted. Calcified left main coronary artery with moderate stenosis nonobstructive disease. Patent stent in the mid circumflex artery with no obstructive disease. Mild disease in the LAD. Patient has small vessel disease in the right coronary artery and heavily calcified ostial right coronary artery lesion that might be responsible for the ischemia on the recurrent chest pain, I recommend maximizing medical therapy, will consider high risk intervention to the ostium of the right coronary artery, continue to monitor the lesion in the left main Paroxysmal atrial fibrillation, maintained on sotalol and Xarelto. Continue to monitor Hypertension, controlled, continue to monitor. Hyperlipidemia. Monitor lipids Prediabetes Clinical Quality Measures AMI/AHF: ASA po Prior to arrival: No (Patient declines aspirin in the ED) DVT/VTE Risk/Contraindication: Risk Factor Score Per Nursin RFS Level Per Nursing on Admit: 2=Moderate Supervisory-Addendum Brief Supervisory Addendum Participated in pt care: history, MDM, physical Personally performed: exam, history, MDM Care discussed with: MARLA Notes: patient was seen and evaluated with Cortney, laying down in bed, recovering well. Feeling well. Going home today. Denied any chest pain, no palpitation, no syncope or near syncopal episodes, we discussed maximizing medical therapy, I'll arrange for follow-up as an outpatient. CORTNEY POWERS Nov 16, 2018 11:57 GEOFF THOMSON MD Nov 16, 2018 13:28
[2018-11-16 12:00] VITALS: BP 146/71
--- NOTE | 2018-11-16 12:24 | Discharge Summary ---
Diagnosis/Chief Complaint Date of Admission Nov 14, 2018 at 23:00 Date of Discharge 11/16/2018 Admission Diagnosis Admission Diagnosis See problem list Discharge Diagnosis See below Problems/Diagnosis: (1) Angina at rest Assessment & Plan: - Stress test this AM, results pending, Repeat Trop neg, Cardiology consulted 11/16: Cath showed heavily calcified right ostia, no interventions done, cardiology recommend maximize medical management Status: Acute (2) CAD (coronary artery disease) Qualifiers: Qualified Codes: I25.110 - Atherosclerotic heart disease of [place] coronary artery with unstable angina pectoris Status: Chronic (3) HTN (hypertension) Qualifiers: Qualified Codes: I10 - Essential (primary) hypertension Status: Chronic (4) HLD (hyperlipidemia) Qualifiers: Qualified Codes: E78.5 - Hyperlipidemia, unspecified Status: Chronic (5) Atrial fibrillation Assessment & Plan: - On Eliquis Qualifiers: Qualified Codes: I48.0 - Paroxysmal atrial fibrillation Status: Chronic (6) Acute kidney insufficiency Assessment & Plan: - Likely 2/2 dehydration, will continue to monitor with hydration 11/16: Resolved with hydration Status: Acute Chief Complaint/HPI Chief Complaint/HPI 82 yo F that presented to ER with left arm pain and numbness. States that it is similar pain to when she had her heart attack and stents placed last time. She just returned from stress test and she states that her arm pain came back during the test. Denies any chest pain or shortness of breath. Has a h/o stent placement in 2012 and follows with cardiology in [place]. No recent US. Has had episodes of A fib in the past and is on blood thinner. Discharge Summary-Simple/Stand Procedures Stress Testin/10 Cath: 11/15: No intervention but revealed small vessel disease with calcified Right ostia Consultations Discharge Physical Examination Allergies: Coded Allergies: Penicillins (Verified Allergy, Unknown, 07/21/18) propoxyphene (Verified Allergy, Unknown, 07/21/18) Vitals & I&Os Vital Sign - Last 12Hours Date Time Temp Pulse Resp B/P (MAP) Pulse Ox O2 Delivery O2 Flow Rate FiO2 11/16/18 08:00 99 Room Air 11/16/18 08:00 99.0 63 20 161/70 (100) Intake and Output 11/16/18 00:00 Intake Total 1520 ml Output Total 1375 ml Balance 145 ml General Appearance: Alert, Oriented X3, Cooperative, No Acute Distress HEENT: Mucous Memb Moist/[place] Respiratory: Clear to Auscultation, Normal Air Movement Cardiovascular: Regular Rate, No Murmurs Abdominal: Normal Bowel Sounds, Soft, No Tenderness, No Masses Extremities: No Edema, No Tenderness/Swelling Skin: No Rashes, No Breakdown Neuro: Normal Speech, Strength at 5/5 X4 Ext, Sensation Intact, Cranial Nerves 3-12 NL Psych/Mental Status: Mental Status NL, Mood NL Hospital Course Was the Problem List Reviewed?: Yes See final discharge diagnosis. Discussion & Recommendations 82 yo F that presented with chest pain and left arm discomfort. Had abnormal stress test and went to clinical laboratory technician yesterday. Cath showed diffuse small vessel disease and calcified Right ostia. Dr Reyez recommended maximize medical management and to have close f.u with Cardiology for potential high risk intervention. AKF resolved with hydration. Discharge Condition at discharge stable Instructions to patient/family Please see electronic discharge instructions given to patient. Discharge Medications Reviewed and agree with Discharge Medication list on patient's Discharge Instruction sheet Clinical Quality Measures AMI/AHF: ASA po Prior to arrival: No (Patient declines aspirin in the ED) DVT/VTE Risk/Contraindication: Risk Factor Score Per Nursin RFS Level Per Nursing on Admit: 2=Moderate Copy Copies To 1: Jessica VILLA APRN GAULT, HOLLY R MD Nov 16, 2018 12:24
--- NOTE | 2018-11-16 12:27 | Discharge Instructions ---
Discharge [facility] Discharge Medications New, Converted or Re-Newed RX: Other Continued Medications: Atorvastatin Calcium (Atorvastatin Calcium) 40 Mg Tablet 40 MG PO 1800, TAB Furosemide (Furosemide) 20 Mg Tablet 20 MG PO 0500, TAB Ibuprofen (Ibuprofen) 400 Mg Tablet 400 MG PO TID PRN for PAIN-MILD, TAB Levothyroxine Sodium (Synthroid) 25 Mcg Tablet 25 MCG PO 0500, TAB Magnesium Oxide (Magnesium) 500 Mg Capsule 500 MG PO 0700, CAP Omeprazole (Omeprazole) 20 Mg Capsule.dr 20 MG PO 0700, CAP Rivaroxaban (Xarelto) 20 Mg Tablet 20 MG PO 1800, TAB Sotalol HCl (Sotalol) 80 Mg Tablet 40 MG PO 0900,2100, TAB TAKES 1/2 (80MG) TABLET Telmisartan/Hydrochlorothiazid (Micardis Hct 80-25 mg Tablet) 1 Each Tablet 1 TAB PO 0700, TAB Patient Instructions Goal/Follow Up Appt: Alessia next week with Cardiology Activity & Diet Discharge Diet: Cardiac Diet FLOR HUANG MD Nov 16, 2018 12:27
== END 2018-11-16 13:46 | disposition home or self-care (01) | DRG 287 ==
LOC: EDUNIT# 21:49 → ER FS 21:50 → 4TH 23:00 → ICU 11-15 17:20 → 4TH 11-15 22:09
PROVIDERS: ADMIT Family Medicine; ATTEND Family Medicine
PROC: 4A023N7 Measurement of Cardiac Sampling and Pressure, Left Heart, Percutaneous Approach (ICD-10-PCS; principal; 2018-11-15)
PROC: B2111ZZ Fluoroscopy of Multiple Coronary Arteries using Low Osmolar Contrast (ICD-10-PCS; 2018-11-15)
DX: I25.110 Atherosclerotic heart disease of native coronary artery with unstable angina pectoris (principal); N17.9 Acute kidney failure, unspecified; I10 Essential (primary) hypertension; E78.5 Hyperlipidemia, unspecified; I48.0 Paroxysmal atrial fibrillation; I25.2 Old myocardial infarction; R73.03 Prediabetes; E03.9 Hypothyroidism, unspecified; Z79.01 Long term (current) use of anticoagulants; Z95.5 Presence of coronary angioplasty implant and graft; Z88.0 Allergy status to penicillin
CPT/HCPCS: 36415; 71045; 78452; 80053; 80061; 84484; 85025; 85610; 85730; 93005; 93017; 93458

== ENCOUNTER 2019-06-10 09:59 | Emergency (ER) | payer MEDICARE, OTHER ==
[~2019-06-10] VITALS: Ht 154.9 cm; Wt 88.9 kg
[~2019-06-10 09:59] MED LIST changes: +LEVO25TA2 PO; +MAGN500C15 PO; -OMEP20CA12 PO; +OMEP20CA13 PO; +RIVA20TA PO; +SOTA80TA62 PO
--- NOTE | 2019-06-10 10:09 | ED Dyspnea ---
General Stated Complaint: SOB; MARCELINO ANKLE SWELLING; INDIGESTION Source of Information: Patient Exam Limitations: No Limitations History of Present Illness Date Seen by Provider: Jun 10, 2019 Time Seen by Provider: 10:07 Initial Comments Patient complains of increasing dyspnea over the past few days. It is worse with any exertion. Her primary physician discontinued her Lasix on May 24 2 to worsening renal function. Over the past 3-4 day she has noticed swelling in her extremities. She started back on her Lasix 2 days ago but is not going down. She complains of intermittent indigestion feeling in her chest. It hurts to breathe. Allergies and Home Medications Allergies Coded Allergies: Penicillins (Verified Allergy, Unknown, 07/21/18) propoxyphene (Verified Allergy, Unknown, 07/21/18) Home Medications Atorvastatin Calcium 40 Mg Tablet, 40 MG PO 1800, (Reported) Furosemide 20 Mg Tablet, 20 MG PO PRN, (Reported) Patient instructed on 05/24/19 to use only prn swelling as decreased renal function per Haily RUIZ Ibuprofen 400 Mg Tablet, 400 MG PO TID PRN for PAIN-MILD, (Reported) Levothyroxine Sodium 25 Mcg Tablet, 25 MCG PO 0500, (Reported) Magnesium Oxide 400 Mg Tablet, 400 MG PO DAILY, (Reported) Omeprazole 20 Mg Capsule.dr, 20 MG PO 0700, (Reported) Rivaroxaban 20 Mg Tablet, 20 MG PO 1800, (Reported) Sotalol HCl 80 Mg Tablet, 40 MG PO 0900,2100, (Reported) TAKES 1/2 (80MG) TABLET Telmisartan/Hydrochlorothiazid 1 Each Tablet, 1 TAB PO 0700, (Reported) Patient Home Medication List Home Medication List Reviewed: Yes Review of Systems Review of Systems Constitutional: no symptoms reported Respiratory: orthopnea, short of breath Cardiovascular: see HPI, edema Gastrointestinal: no symptoms reported Genitourinary: no symptoms reported All Other Systems Reviewed Negative Unless Noted: Yes Past Ferotxb-Ttsoyf-Jtdbhh Hx Patient Social History 2nd Hand Smoke Exposure: No Recent Foreign Travel: No Recent Hopitalizations: No Immunizations Up To Date Date of Pneumonia Vaccine: Nov 15, 2013 Past Medical History Surgeries: Yes (STENT X 3) Coronary Stent Respiratory: Yes (UPPER RESP INFECT 3 WEEKS AGO) Cardiac: Yes Coronary Artery Disease, High Cholesterol, Hypertension Neurological: No Genitourinary: No Gastrointestinal: No Musculoskeletal: No Endocrine: Yes Hypothyroidsim HEENT: No Cancer: No Psychosocial: No Integumentary: No Blood Disorders: No Family Medical History CAD Under 55 Years Old, CAD Over 55 Years Old, Diabetes, Stroke Physical Exam Vital Signs Vital Signs - First Documented 06/10/19 10:05 Temp 36.7 Pulse 120 Resp 24 B/P (MAP) 151/88 (109) Pulse Ox 94 O2 Delivery Room Air Capillary Refill : Height, Weight, BMI Height: 5'4.00" Weight: 190lbs. 0.7oz. [id number]; 32.6 BMI Method:Stated General Appearance: No Apparent Distress, WD/WN HEENT: PERRL/EOMI, Pharynx Normal Neck: Supple Respiratory: Lungs Clear, Normal Breath Sounds Cardiovascular: Regular Rate, Rhythm, Other (2+ pedal edema) Gastrointestinal: Soft Neurologic/Psychiatric: Alert, Oriented x3, No Motor/Sensory Deficits Skin: Normal Color, Warm/Dry Progress/Results/Core Measures Results/Orders Lab Results Laboratory Tests Test 06/10/19 10:14 Range/Units White Blood Count 8.3 4.3-11.0 10^3/uL Red Blood Count 4.71 4.35-5.85 10^6/uL Hemoglobin 14.0 11.5-16.0 G/DL Hematocrit 42 35-52 % Mean Corpuscular Volume 90 80-99 FL Mean Corpuscular Hemoglobin 30 25-34 PG Mean Corpuscular Hemoglobin Concent 33 32-36 G/DL Red Cell Distribution Width 12.8 10.0-14.5 % Platelet Count 285 130-400 10^3/uL Mean Platelet Volume 10.0 7.4-10.4 FL Neutrophils (%) (Auto) 70 42-75 % Lymphocytes (%) (Auto) 18 12-44 % Monocytes (%) (Auto) 8 0-12 % Eosinophils (%) (Auto) 3 0-10 % Basophils (%) (Auto) 1 0-10 % Neutrophils # (Auto) 5.8 1.8-7.8 X 10^3 Lymphocytes # (Auto) 1.5 1.0-4.0 X 10^3 Monocytes # (Auto) 0.7 0.0-1.0 X 10^3 Eosinophils # (Auto) 0.3 0.0-0.3 10^3/uL Basophils # (Auto) 0.1 0.0-0.1 10^3/uL Prothrombin Time 18.5 H 12.2-14.7 SEC INR Comment 1.5 H 0.8-1.4 Activated Partial Thromboplast Time 34 24-35 SEC Sodium Level 138 135-145 MMOL/L Potassium Level 4.1 3.6-5.0 MMOL/L Chloride Level 102 98-107 MMOL/L Carbon Dioxide Level 24 21-32 MMOL/L Anion Gap 12 5-14 MMOL/L Blood Urea Nitrogen 32 H 7-18 MG/DL Creatinine 1.41 H 0.60-1.30 MG/DL Estimat Glomerular Filtration Rate 36 BUN/Creatinine Ratio 23 Glucose Level 141 H 70-105 MG/DL Calcium Level 9.4 8.5-10.1 MG/DL Corrected Calcium 9.5 8.5-10.1 MG/DL Magnesium Level 1.9 1.6-2.4 MG/DL Total Bilirubin 0.6 0.1-1.0 MG/DL Aspartate Amino Transf (AST/SGOT) 18 5-34 U/L Alanine Aminotransferase (ALT/SGPT) 8 0-55 U/L Alkaline Phosphatase 120 40-136 U/L Troponin I < 0.30 <0.30 NG/ML Pro-B-Type Natriuretic Peptide 7695.0 H <75.0 PG/ML Total Protein 7.2 6.4-8.2 GM/DL Albumin 3.9 3.2-4.5 GM/DL Lipase 28 8-78 U/L My Orders Orders - ONOFRE CARRERA MD Cbc With Automated Diff (06/10/19 10:06) Magnesium (06/10/19 10:06) Chest 1 View Ap/Pa Only (06/10/19 10:06) Ekg Tracing (06/10/19 10:06) Comprehensive Metabolic Panel (06/10/19 10:06) Protime With Inr (06/10/19 10:06) Partial Thromboplastin Time (06/10/19 10:06) O2 (06/10/19 10:06) Monitor-Rhythm Ecg Trace Only (06/10/19 10:06) Ed Iv/Invasive Line Start (06/10/19 10:06) Troponin I Fs (06/10/19 10:06) Probnp Fs (06/10/19 10:06) Lipase (06/10/19 10:21) Furosemide Injection (Lasix Injection) (06/10/19 11:30) Diltiazem Injection (Cardizem Injection) (06/10/19 11:30) Ns (Ivpb) (Sodium C... W/Diltiazem Iv Fo (06/10/19 11:30) Medications Given in ED Current Medications Medications Dose Ordered Sig/Ammy Route Start Time Stop Time Status Last Admin Dose Admin Diltiazem HCl 10 mg ONCE ONCE IVP 06/10/19 11:30 06/10/19 11:31 DC 06/10/19 11:36 10 MG Furosemide 40 mg ONCE ONCE IVP 06/10/19 11:30 06/10/19 11:31 DC 06/10/19 11:26 40 MG Vital Signs/I&O 06/10/19 06/10/19 10:05 11:35 Temp 36.7 36.96038 Pulse 120 120 Resp 24 24 B/P (MAP) 151/88 (109) 151/88 Pulse Ox 94 94 O2 Delivery Room Air Room Air Progress Progress Note : Time: 11:46 Progress Note Patient clinically in heart failure with atrial fibrillation with an out of control rate. Given IV Lasix and started on a Cardizem drip. She will need transfer. I spoke with [place] but they have no beds available. I spoke with [facility] and they accepted. Dr. Fang will be the admitting doctor Initial ECG Impression Date: Jun 10, 2019 Initial ECG Impression Time: 10:07 Initial ECG Rate: 123 Initial ECG Rhythm: A Fib/Flutter Initial ECG Intervals: Normal Initial ECG Impression: Nonspecific Changes Departure Impression Primary Impression: Congestive heart failure Additional Impressions: Atrial fibrillation Dyspnea Disposition: XFER SHT-TRM HOSP Condition: Improved Transfer Transfer Reason: Exceeds level of care Time Spoke to Accepting Phy: 11:49 Transfer Progress Notes Spoke with Dr. Fang to accept the transfer Transfer Time: 11:50 Transfer Facility: [facility] Method of Transfer: EMS Departure-Patient Inst. Referrals: SELFRASHAUN MD (PCP) Primary Care Physician BALDEV CORREA APRN (Family) Primary Care Physician ONOFRE CARRERA MD Jun 10, 2019 10:09
[2019-06-10 10:23] LABS: HEMATOCRIT 42 % (35-52); LYMPHOCYTES % (AUTO) 18 % (12-44); MEAN CORPUSCULAR HEMOGLOBIN 30 PG (25-34); MEAN CORPUSCULAR HGB CONC 33 G/DL (32-36); MEAN CORPUSCULAR VOLUME 90 FL (80-99); NEUTROPHILS % (AUTO) 70 % (42-75); PLATELET COUNT 285 10^3/uL (130-400); RED CELL DISTRIBUTION WIDTH 12.8 % (10.0-14.5); WHITE BLOOD COUNT 8.3 10^3/uL (4.3-11.0)
[2019-06-10 10:24] LABS: BASOPHILS # (AUTO) 0.1 10^3/uL (0.0-0.1); BASOPHILS % (AUTO) 1 % (0-10); EOSINOPHILS # (AUTO) 0.3 10^3/uL (0.0-0.3); EOSINOPHILS % (AUTO) 3 % (0-10); LYMPHOCYTES # (AUTO) 1.5 X 10^3 (1.0-4.0); MONOCYTES # (AUTO) 0.7 X 10^3 (0.0-1.0); MONOCYTES % (AUTO) 8 % (0-12); NEUTROPHILS # (AUTO) 5.8 X 10^3 (1.8-7.8)
--- NOTE | 2019-06-10 10:36 | Diagnostic Imaging Report ---
EXAM: CHEST 1 VIEW AP/PA ONLY INDICATION: Shortness of breath. COMPARISON: 11/14/2018. FINDINGS: Cardiomegaly. Normal central pulmonary vascularity. No focal pulmonary opacity, pleural effusion or pneumothorax. No acute osseous findings. IMPRESSION: Cardiomegaly with normal pulmonary vascularity is similar to the prior exam. Dictated by: Dictated on workstation # [id number]
[2019-06-10 10:38] LABS: INR 1.5 (0.8-1.4); PROTHROMBIN TIME PATIENT 18.5 SEC (12.2-14.7)
[2019-06-10] MEDS ORDERED: MAGN400T7 PO (10:42)
[2019-06-10 10:45] LABS: CALCIUM 9.4 MG/DL (8.5-10.1); CREATININE SERUM 1.41 MG/DL (0.60-1.30); POTASSIUM 4.1 MMOL/L (3.6-5.0)
[2019-06-10 10:46] LABS: ALBUMIN 3.9 GM/DL (3.2-4.5); BILIRUBIN,TOTAL 0.6 MG/DL (0.1-1.0); MAGNESIUM 1.9 MG/DL (1.6-2.4); TOTAL PROTEIN 7.2 GM/DL (6.4-8.2)
[2019-06-10 10:55] LABS: LIPASE 28 U/L (8-78)
--- NOTE | 2019-06-10 11:15 | NUR ---
Call to [employer] KAY to establish the available beds in [facility]; no CSD, no ICU and will have to check for any medical beds later as already spoken for beds.
[2019-06-10] MEDS ORDERED: FUROSEMIDE 40 MG/4 ML INJ (LASIX) IVP ONE (11:30)
[2019-06-10] MEDS ORDERED: DILTIAZEM 25 MG/5 ML INJ (CARDIZEM) VIAL IVP ONE (11:30)
[2019-06-10] MEDS ORDERED: DILTIAZEM IV FOR DRIP 125 MG in NS (IVPB) 100 ML IV SCH (11:30)
--- NOTE | 2019-06-10 13:03 | NUR ---
Call to dispatch to arrange EMS for transfer. ALS, Code yellow, Monitoring and Cardizem drip.
--- NOTE | 2019-06-10 13:15 | NUR ---
[facility] here.
[2019-06-10 13:30] VITALS: BP 103/84
--- NOTE | 2019-06-10 13:30 | NUR ---
Pt departing with [facility] for Evi Joshua on Cardizem drip and cardiac monitoring. Pt is stable. Monitor reveals A Fib 70-90's, occas to 110 with physical exertion. Pt remains normotensive.
--- NOTE | 2019-06-10 14:30 | NUR ---
Notified Classifier Operator the patient has shipped to [facility] [address] for cardiology services.
== END 2019-06-10 13:30 | disposition short-term general hospital (02) ==
LOC: EDUNIT# 09:59 → ER FS 10:01
DX: I11.0 Hypertensive heart disease with heart failure (principal); I50.9 Heart failure, unspecified; I48.91 Unspecified atrial fibrillation; I25.10 Atherosclerotic heart disease of native coronary artery without angina pectoris; E78.00 Pure hypercholesterolemia, unspecified; E03.9 Hypothyroidism, unspecified; Z88.0 Allergy status to penicillin; Z88.8 Allergy status to other drugs, medicaments and biological substances; Z95.5 Presence of coronary angioplasty implant and graft
CPT/HCPCS: 36415; 71045; 80053; 83690; 83735; 83880; 84484; 85025; 85610; 85730; 93005; 93041; 96365; 96366; 96375

== ENCOUNTER 2019-06-28 14:23 | Inpatient (IN) | payer MEDICARE, OTHER ==
[2019-06-28] VITALS (9 sets, daily range): BP systolic 129–176; BP diastolic 66–74
[~2019-06-28] VITALS: Ht 63 cm; Wt 85.6 kg
[~2019-06-28 14:23] MED LIST changes: +MAGN400T7 PO; +OMEP-280 PO; -OMEP20CA13 PO
[2019-06-28] MEDS ORDERED: FUROSEMIDE 40 MG/4 ML INJ (LASIX) IVP ONE (14:45)
[2019-06-28 14:47] LABS: HEMOGLOBIN 13.5 G/DL (11.5-16.0); MEAN CORPUSCULAR HEMOGLOBIN 30 PG (25-34); WHITE BLOOD COUNT 13.7 10^3/uL (4.3-11.0)
[2019-06-28 14:48] LABS: BASOPHILS % (AUTO) 0 % (0-10); EOSINOPHILS % (AUTO) 2 % (0-10); HEMATOCRIT 40 % (35-52); LYMPHOCYTES # (AUTO) 1.8 X 10^3 (1.0-4.0); LYMPHOCYTES % (AUTO) 13 % (12-44); MEAN CORPUSCULAR HGB CONC 34 G/DL (32-36); MEAN CORPUSCULAR VOLUME 88 FL (80-99); MEAN PLATELET VOLUME 9.3 FL (7.4-10.4); MONOCYTES % (AUTO) 11 % (0-12); NEUTROPHILS % (AUTO) 73 % (42-75); PLATELET COUNT 386 10^3/uL (130-400)
[2019-06-28 14:49] LABS: EOSINOPHILS # (AUTO) 0.3 10^3/uL (0.0-0.3); MONOCYTES # (AUTO) 1.5 X 10^3 (0.0-1.0)
--- NOTE | 2019-06-28 15:05 | ED Cardiac General ---
History of Present Illness General Chief Complaint: Cardiac/General Problems Stated Complaint: CHEST PAIN Nursing Triage Note: PT WAS HOSPITALIZED FOR CHF AND D/C ON THE . SHE HAS HAD A FOLLOW UP WITH DR. REYEZ AND HER PCP SINCE THE HOSPITALIZATION. PT HAD PHYISCAL THERAPY TODAY AND SHE WAS SHORT OF AIR AND HER BLOOD PRESSURE WAS ELEVATED WITH SOME CHEST DISCOMFORT THAT IS REPRODUCABLE WITH PALPATION. WEDNESDAY WAS HER FIRST SESSION. PT HAD 1 NITRO AT HOME. History of Present Illness Date Seen by Provider: Jun 28, 2019 Time Seen by Provider: 15:03 Initial Comments 83-year-old female brought in by wheelchair appearing dyspneic just had a 2 week hospitalization on 06-10 in [place], home 1 week ago apparently mainly for CHF also remains in atrial fib treated with IV Lasix for CHF has renal insufficiency BNP here was 7700 has history of coronary artery disease with a stents in 2012, last cath was in November 2018 showing small vessel disease in the right coronary artery, heavily calcified ostial right coronary artery lesion recommendation was to maximize medical therapy that point she's been home a week was seen as an outpatient and her Lasix was increased today rehab personnel came to start trying to do some exercises with her it's unclear but it sounds like perhaps this precipitated some symptoms she describes discomfort across the lower central chest and some dyspnea on off and then with exercise it has accelerated here at rest on oxygen she says it's mild she doesn't feel much in the way of pain at this point she does seem quite anxious heart rate is in the 80s irregular blood pressure is 150s over 70 her lungs sound clear she does have significant leg edema Allergies and Home Medications Allergies Coded Allergies: Penicillins (Verified Allergy, Unknown, 07/21/18) propoxyphene (Verified Allergy, Unknown, 07/21/18) Home Medications Atorvastatin Calcium 40 Mg Tablet, 40 MG PO 1800, (Reported) Furosemide 20 Mg Tablet, 20 MG PO PRN, (Reported) Patient instructed on 05/24/19 to use only prn swelling as decreased renal function per Haily RUIZ Ibuprofen 400 Mg Tablet, 400 MG PO TID PRN for PAIN-MILD, (Reported) Levothyroxine Sodium 25 Mcg Tablet, 25 MCG PO 0500, (Reported) Magnesium Oxide 400 Mg Tablet, 400 MG PO DAILY, (Reported) Omeprazole 20 Mg Capsule.dr, 20 MG PO 0700, (Reported) Rivaroxaban 20 Mg Tablet, 20 MG PO 1800, (Reported) Sotalol HCl 80 Mg Tablet, 40 MG PO 0900,2100, (Reported) TAKES 1/2 (80MG) TABLET Telmisartan/Hydrochlorothiazid 1 Each Tablet, 1 TAB PO 0700, (Reported) Patient Home Medication List Home Medication List Reviewed: Yes Review of Systems Review of Systems Constitutional: No dizziness, No fever EENTM: No Symptoms Reported Respiratory: SOA With Exertion Cardiovascular: Chest Pain Gastrointestinal: No Symptoms Reported Genitourinary: No Symptoms Reported Musculoskeletal: no symptoms reported Skin: no symptoms reported Psychiatric/Neurological: No Symptoms Reported Endocrine: No Symptoms Reported Past Fgqpjun-Qaqdsg-Ouvtyq Hx Patient Social History Alcohol Use: Denies Use Recreational Drug Use: No Smoking Status: Never a Smoker 2nd Hand Smoke Exposure: No Recent Foreign Travel: No Contact w/Someone Who Travel: No Recent Infectious Disease Expo: No Recent Hopitalizations: No Physical Abuse: No Sexual Abuse: No Mistreated: No Fear: No Immunizations Up To Date Date of Pneumonia Vaccine: Nov 15, 2013 Date of Influenza Vaccine: Mar 07, 2019 Past Medical History Surgeries: Yes (STENT X 3) Coronary Stent Respiratory: Yes Pneumonia Cardiac: Yes (Paroxysmal A Fib, CHF) Atrial Fibrillation, Chronic Edema/Swelling, Coronary Artery Disease, High Cholesterol, Hypertension Neurological: No Genitourinary: Yes (Stage 3 CKD) Gastrointestinal: No Musculoskeletal: No Endocrine: Yes (Dx "Prediabetes") Hypothyroidsim HEENT: No Cancer: No Psychosocial: No Integumentary: No Blood Disorders: No Family Medical History CAD Under 55 Years Old, CAD Over 55 Years Old, Diabetes, Stroke Physical Exam Vital Signs Vital Signs - First Documented 06/28/19 14:35 Temp 35.9 Pulse 75 Resp 18 B/P (MAP) 161/59 (93) Pulse Ox 96 O2 Delivery Room Air Capillary Refill : Less Than 3 Seconds Height, Weight, BMI Height: 5'4.00" Weight: 190lbs. 0.7oz. 86.062513jj; 35.00 BMI Method:Stated General Appearance: Other (mild distress with dyspnea) HEENT: PERRL/EOMI Neck: Supple Respiratory: Lungs Clear, Other (no rales appreciated) Cardiovascular: Systolic Murmur, Irregularly Irregular Gastrointestinal: Normal Bowel Sounds, Non Tender, Soft Extremity: Pedal Edema (2+ pitting bilat) Neurologic/Psychiatric: Alert, Oriented x3 Progress/Results/Core Measures Results/Orders Lab Results Laboratory Tests Test 06/28/19 14:26 06/28/19 16:25 Range/Units White Blood Count 13.7 H 4.3-11.0 10^3/uL Red Blood Count 4.55 4.35-5.85 10^6/uL Hemoglobin 13.5 11.5-16.0 G/DL Hematocrit 40 35-52 % Mean Corpuscular Volume 88 80-99 FL Mean Corpuscular Hemoglobin 30 25-34 PG Mean Corpuscular Hemoglobin Concent 34 32-36 G/DL Red Cell Distribution Width 13.0 10.0-14.5 % Platelet Count 386 130-400 10^3/uL Mean Platelet Volume 9.3 7.4-10.4 FL Neutrophils (%) (Auto) 73 42-75 % Lymphocytes (%) (Auto) 13 12-44 % Monocytes (%) (Auto) 11 0-12 % Eosinophils (%) (Auto) 2 0-10 % Basophils (%) (Auto) 0 0-10 % Neutrophils # (Auto) 10.0 H 1.8-7.8 X 10^3 Lymphocytes # (Auto) 1.8 1.0-4.0 X 10^3 Monocytes # (Auto) 1.5 H 0.0-1.0 X 10^3 Eosinophils # (Auto) 0.3 0.0-0.3 10^3/uL Basophils # (Auto) 0.0 0.0-0.1 10^3/uL Prothrombin Time 18.4 H 12.2-14.7 SEC INR Comment 1.5 H 0.8-1.4 Sodium Level 136 135-145 MMOL/L Potassium Level 4.0 3.6-5.0 MMOL/L Chloride Level 94 L 98-107 MMOL/L Carbon Dioxide Level 27 21-32 MMOL/L Anion Gap 15 H 5-14 MMOL/L Blood Urea Nitrogen 33 H 7-18 MG/DL Creatinine 1.48 H 0.60-1.30 MG/DL Estimat Glomerular Filtration Rate 34 BUN/Creatinine Ratio 22 Glucose Level 141 H 70-105 MG/DL Calcium Level 9.3 8.5-10.1 MG/DL Corrected Calcium 9.4 8.5-10.1 MG/DL Total Bilirubin 0.6 0.1-1.0 MG/DL Aspartate Amino Transf (AST/SGOT) 16 5-34 U/L Alanine Aminotransferase (ALT/SGPT) 41 0-55 U/L Alkaline Phosphatase 122 40-136 U/L Troponin I < 0.30 < 0.30 <0.30 NG/ML Pro-B-Type Natriuretic Peptide 6615.0 H <75.0 PG/ML Total Protein 7.1 6.4-8.2 GM/DL Albumin 3.9 3.2-4.5 GM/DL My Orders Orders - GABINO LI MD Oxygen-Administer 07,19 (06/28/19 14:35) Furosemide Injection (Lasix Injection) (06/28/19 14:45) Chest 1 View Ap/Pa Only (06/28/19 14:35) Progress Clerk (06/28/19 14:35) Cbc With Automated Diff (06/28/19 14:35) Comprehensive Metabolic Panel (06/28/19 14:35) Troponin I Fs (06/28/19 14:35) Ekg Tracing (06/28/19 14:55) Probnp Fs (06/28/19 14:55) Aspirin Chewable Tablet (Baby Aspirin Ch (06/28/19 15:15) Digoxin (06/28/19 15:26) Protime With Inr (06/28/19 15:26) Ekg Tracing (06/28/19 16:03) Troponin I Fs (06/28/19 16:23) Nitroglycerin Ointment (Nitrobid Ointme (06/28/19 16:30) Medications Given in ED Current Medications Medications Dose Ordered Sig/Ammy Route Start Time Stop Time Status Last Admin Dose Admin Aspirin 324 mg ONCE ONCE PO 06/28/19 15:15 06/28/19 15:16 DC 06/28/19 15:06 324 MG Furosemide 40 mg ONCE ONCE IVP 06/28/19 14:45 06/28/19 14:46 DC 06/28/19 14:53 40 MG Nitroglycerin 1 inch ONCE ONCE TOP 06/28/19 16:30 06/28/19 16:31 DC 06/28/19 16:38 1 INCH Vital Signs/I&O 06/28/19 14:35 Temp 35.9 Pulse 75 Resp 18 B/P (MAP) 161/59 (93) Pulse Ox 96 O2 Delivery Room Air Blood Pressure Mean: 93 Progress Progress Note : Progress Note Hb 13.5 WBC 13,700 CMP BUN 33/creat1.48 (similar to prior) trop <0.30 and repeat same BNP 6600 (last one actually higher) CXR does not show pulm edema INR 1.5 pt chewed ASA 324 Patient for the most part seems to be without significant pain but she says once in a while she'll have a twinge of lower central chest discomfort. EKG is unchanged repeat troponin is pending currently I've discussed case with hospitalist Dr. Burnett who agrees to accept to a stepdown unit in [place] (where pt wants to go) and Dr. Reyez has been apprised of this patient's situation and agrees to see her in consultation EKG : Comment EKG shows atrial flutter with a rate of [address] diffuse anterior [address] depression No STEMI Repeat EKG looks essentially the same of note the patient did not have this mild anterior ST depression on her EKG from June 10 Departure Communication (Admissions) Time/Spoke to Admitting Phy: 17:13 Time/Spoke to Consulting Phy: 17:13 Impression Primary Impression: Chest pain Qualified Codes: I25.9 - Chronic ischemic heart disease, unspecified Additional Impressions: Atrial fibrillation Qualified Codes: I48.11 - Longstanding persistent atrial fibrillation CHF (congestive heart failure) Qualified Codes: I50.9 - Heart failure, unspecified Disposition: ADMITTED INPATIENT Condition: Stable Admissions Decision to Admit Reason: Admit from ER (General) (chest pain atrial fib CHF) Decision to Admit/Date: Jun 28, 2019 Time/Decision to Admit Time: 17:14 Departure-Patient Inst. Referrals: SELFRASHAUN MD (PCP) Primary Care Physician BALDEV CORREA APRN (Family) Primary Care Physician GABINO LI MD Jun 28, 2019 15:05
[2019-06-28 15:06] LABS: SODIUM 136 MMOL/L (135-145)
--- NOTE | 2019-06-28 15:06 | Diagnostic Imaging Report ---
INDICATION: Chest pain. TIME OF EXAM: 02:56 p.m. Correlation is made with prior chest from 06/10/2019. FINDINGS: Heart size appears to be stable. Lungs appear to be clear. No infiltrates or evidence of congestive failure seen. There is no effusion or pneumothorax. IMPRESSION: Stable chest. No acute feature detected. Dictated by: Dictated on workstation # [id number]
[2019-06-28 15:07] LABS: ALANINE AMINOTRANSFERASE 41 U/L (0-55); ALBUMIN 3.9 GM/DL (3.2-4.5); ALKALINE PHOSPHATASE 122 U/L (40-136); BILIRUBIN,TOTAL 0.6 MG/DL (0.1-1.0); BUN/CREATININE RATIO 22; CALCIUM 9.3 MG/DL (8.5-10.1); CARBON DIOXIDE 27 MMOL/L (21-32); CHLORIDE 94 MMOL/L (98-107); CREATININE SERUM 1.48 MG/DL (0.60-1.30); GFR ESTIMATED 34; GLUCOSE 141 MG/DL (70-105); TOTAL PROTEIN 7.1 GM/DL (6.4-8.2)
[2019-06-28] MEDS ORDERED: ASPIRIN 81 MG CHEW (CHILDREN'S ASA) PO ONE (15:15)
[2019-06-28 15:41] LABS: PROTHROMBIN TIME PATIENT 18.4 SEC (12.2-14.7)
[2019-06-28 15:42] LABS: INR 1.5 (0.8-1.4)
[2019-06-28] MEDS ORDERED: NITROGLYCERIN 2% OINT 1 GM UNIT DOSE PACKET TOP ONE (16:30)
[2019-06-28] MEDS ORDERED: CATHETER FLUSH 10 ML SYR IV PRN (19:00)
[2019-06-28] MEDS ORDERED: morphine INJ 4 MG/ML 1 ML (VIAL/SYRINGE) ONE (19:59)
[2019-06-28] MEDS ORDERED: NITROGLYCERIN 0.4 MG SL TABS BTL 25'S SL PRN (20:00)
[2019-06-28] MEDS ORDERED: morphine INJ 4 MG/ML 1 ML (VIAL/SYRINGE) IV PRN (20:00)
[2019-06-28] MEDS: CATHETER FLUSH 10 ML SYR IV SCH (22:00)
[2019-06-28] MEDS: ONDANSETRON 4 MG/2 ML (SDV) Z0FRAN IVP PRN (23:56)
[2019-06-29] VITALS (12 sets, daily range): BP systolic 115–155; BP diastolic 55–82
[2019-06-29 04:27] LABS: BASOPHILS % (AUTO) 0 % (0-10); EOSINOPHILS # (AUTO) 0.3 10^3/uL (0.0-0.3); EOSINOPHILS % (AUTO) 3 % (0-10); HEMATOCRIT 36 % (35-52); HEMOGLOBIN 11.9 G/DL (11.5-16.0); LYMPHOCYTES # (AUTO) 0.9 X 10^3 (1.0-4.0); LYMPHOCYTES % (AUTO) 10 % (12-44); MEAN CORPUSCULAR HEMOGLOBIN 30 PG (25-34); MEAN CORPUSCULAR HGB CONC 34 G/DL (32-36); MEAN CORPUSCULAR VOLUME 88 FL (80-99); MEAN PLATELET VOLUME 9.4 FL (7.4-10.4); MONOCYTES % (AUTO) 11 % (0-12); NEUTROPHILS # (AUTO) 6.7 X 10^3 (1.8-7.8); NEUTROPHILS % (AUTO) 76 % (42-75); PLATELET COUNT 304 10^3/uL (130-400); RED CELL DISTRIBUTION WIDTH 13.3 % (10.0-14.5); WHITE BLOOD COUNT 8.9 10^3/uL (4.3-11.0)
[2019-06-29 04:45] LABS: ALBUMIN 3.3 GM/DL (3.2-4.5); BILIRUBIN,TOTAL 0.6 MG/DL (0.1-1.0); CALCIUM 8.6 MG/DL (8.5-10.1); CREATININE SERUM 1.56 MG/DL (0.60-1.30); POTASSIUM 4.3 MMOL/L (3.6-5.0); TOTAL PROTEIN 5.8 GM/DL (6.4-8.2)
[2019-06-29] MEDS: CATHETER FLUSH 10 ML SYR IV SCH ×3 (05:04→22:13)
[2019-06-29] MEDS: ONDANSETRON 4 MG/2 ML (SDV) Z0FRAN IVP PRN (05:04)
--- NOTE | 2019-06-29 08:59 | Consultation-Cardiology ---
HPI-Cardiology Cardiology Consultation Date of Consultation 06/29/19 Date of Admission Time Seen by Provider: 08:20 Indication: Chest pain HPI Patient is an 83-year-old female with history of CAD, persistent atrial fibrillation. Presented to the ER with complaints of chest pain and dyspnea with exertion. Patient was hospitalized in [facility] several weeks ago for A. fib with RVR as we were on diversion at the time. While there she was taken off of sotalol and started on amiodarone, underwent stress test as well revealing no ischemia or infarct. Has been complaining of increased dyspnea and peripheral edema since being discharged. Was seen in our office last week, Lasix was increased. Patient reports that over the course of week she began having increased episodes of chest pain with exertion. Now having intermittent episodes of chest pain with rest. Denies any dizziness or lightheadedness. Patient has nonproductive cough and wheezing for the past week, recently finished Medrol Dosepak 2 days ago Home Medications & Allergies Allergies: Coded Allergies: Penicillins (Verified Allergy, Unknown, 07/21/18) propoxyphene (Verified Allergy, Unknown, 07/21/18) Home Medication List Reviewed: Yes [id number] Hx Patient Social History Marital Status: Employed/Student: student, part-time Alcohol Use: Denies Use Recreational Drug Use: No Smoking Status: Never a Smoker 2nd Hand Smoke Exposure: No Recent Foreign Travel: No Recent Infectious Disease Expo: No Recent Hopitalizations: No Immunizations Up To Date Date of Pneumonia Vaccine: Nov 15, 2013 Date of Influenza Vaccine: Mar 07, 2019 Past Medical History CAD, AFib, HTN Family Medical History Significant Family History: CAD Under 55 Years Old, CAD Over 55 Years Old, Diabetes, Stroke Review of Systems-General Review of Systems Constitutional: see HPI; No dizziness, No fever; malaise, weakness EENTM: see HPI, no symptoms reported; No blurred vision, No vision loss Respiratory: see HPI, cough, dyspnea on exertion; No hemoptysis, No orthopnea, No phlegm; short of breath, wheezing Cardiovascular: see HPI, chest pain, edema, Hx of Intervention; No palpitations, No syncope; vascular heart diseas Gastrointestinal: No abdominal pain, No constipation Genitourinary: No dysuria, No frequency Musculoskeletal: no symptoms reported Skin: no symptoms reported Psychiatric/Neurological: No Symptoms Reported Reviewed Test Results Reviewed Test Results Lab Laboratory Tests 06/28/19 14:26: White Blood Count 13.7H, Red Blood Count 4.55, Hemoglobin 13.5, Hematocrit 40, Mean Corpuscular Volume 88, Mean Corpuscular Hemoglobin 30, Mean Corpuscular Hemoglobin Concent 34, Red Cell Distribution Width 13.0, Platelet Count 386, Mean Platelet Volume 9.3, Neutrophils (%) (Auto) 73, Lymphocytes (%) (Auto) 13, Monocytes (%) (Auto) 11, Eosinophils (%) (Auto) 2, Basophils (%) (Auto) 0, Neutrophils # (Auto) 10.0H, Lymphocytes # (Auto) 1.8, Monocytes # (Auto) 1.5H, Eosinophils # (Auto) 0.3, Basophils # (Auto) 0.0, Prothrombin Time 18.4H, INR Comment 1.5H, Sodium Level 136, Potassium Level 4.0, Chloride Level 94L, Carbon Dioxide Level 27, Anion Gap 15H, Blood Urea Nitrogen 33H, Creatinine 1.48H, Estimat Glomerular Filtration Rate 34, BUN/Creatinine Ratio 22, Glucose Level 141H, Calcium Level 9.3, Corrected Calcium 9.4, Total Bilirubin 0.6, Aspartate Amino Transf (AST/SGOT) 16, Alanine Aminotransferase (ALT/SGPT) 41, Alkaline Phosphatase 122, Troponin I < 0.30, Pro-B-Type Natriuretic Peptide 6615.0H, Total Protein 7.1, Albumin 3.9 06/28/19 16:25: Troponin I < 0.30 06/28/19 22:55: Troponin I 0.042H 06/29/19 04:00: White Blood Count 8.9, Red Blood Count 4.03L, Hemoglobin 11.9, Hematocrit 36, Mean Corpuscular Volume 88, Mean Corpuscular Hemoglobin 30, Mean Corpuscular Hemoglobin Concent 34, Red Cell Distribution Width 13.3, Platelet Count 304, Mean Platelet Volume 9.4, Neutrophils (%) (Auto) 76H, Lymphocytes (%) (Auto) 10L , Monocytes (%) (Auto) 11, Eosinophils (%) (Auto) 3, Basophils (%) (Auto) 0, Neutrophils # (Auto) 6.7, Lymphocytes # (Auto) 0.9L, Monocytes # (Auto) 1.0, Eosinophils # (Auto) 0.3, Basophils # (Auto) 0.0, Sodium Level 136, Potassium Level 4.3, Chloride Level 100, Carbon Dioxide Level 25, Anion Gap 11, Blood Urea Nitrogen 34H, Creatinine 1.56H, Estimat Glomerular Filtration Rate 32, BUN/Creatinine Ratio 22, Glucose Level 111H, Calcium Level 8.6, Corrected Calcium 9.2, Total Bilirubin 0.6, Aspartate Amino Transf (AST/SGOT) 13, Alanine Aminotransferase (ALT/SGPT) 33, Alkaline Phosphatase 97, Troponin I 0.054H, Total Protein 5.8L, Albumin 3.3 ECG Impression ECG Initial ECG Rhythm: A Fib/Flutter Physical Exam Physical Exam Vital Signs Vital Signs - First Documented 06/28/19 06/28/19 14:35 19:30 Temp 35.9 Pulse 75 Resp 18 B/P (MAP) 161/59 (93) Pulse Ox 96 O2 Delivery Room Air O2 Flow Rate 3.00 Capillary Refill : Less Than 3 Seconds Height, Weight, BMI Height: 5'4.00" Weight: 190lbs. 0.7oz. 86.422938yr; 215.67 BMI Method:Stated General Appearance: No Apparent Distress, WD/WN, Other (mild distress with dyspnea) HEENT: PERRL/EOMI Neck: Supple Respiratory: Lungs Clear, Rhonci, Wheezing Cardiovascular: Systolic Murmur, Irregularly Irregular, Other (+1 edema BLE) Gastrointestinal: Normal Bowel Sounds, Non Tender, Soft Rectal: Deferred Extremity: Pedal Edema (2+ pitting bilat) Neurologic/Psychiatric: Alert, Oriented x3 A/P-Cardiology Admission Diagnosis Chest pain Elevated BNP CAD Persistent atrial fibrillation Assessment/Plan Chest pain, mild elevation in troponin, non-ST elevation myocardial infarction, known to have small vessel disease and haziness in the proximal right coronary artery with ischemia in the inferior wall on stress test in November 2018. Considered high-risk for intervention. Has been having active chest pain on and off, started have chest pain during the examination, I will proceed with cardiac catheterization today. Elevated BNP, echocardiogram showed left ventricular hypertrophy with hyperactive ventricle, gradient across the left ventricular outflow tract probably due to hypovolemia, start IV fluid and monitor. Coronary artery disease, history of multiple interventions in the past, had a total of 3 stents. Underwent cardiac catheterization on November 15, 2018 revealing moderate stenosis at the ostium of the right coronary artery, heavily calcified. 2 stents in the mid right coronary artery are patent with small vessel disease distally. Calcified left main coronary artery is moderate stenosis, nono bstructive disease. Patent stents in the mid circumflex complex artery with no obstructive disease, mild disease in LAD. Patient has small vessel disease in RCA in heavily calcified ostial RCA that might be responsible for the ischemia or any recurrent chest pain. Consider high risk intervention to the ostium of the RCA if patient continues to be symptomatic, continue to monitor lesion in the left main. Having mild elevation in troponin with active chest pain, planning to proceed with cardiac catheterization today. Persistent atrial fibrillation, patient recently hospitalized in [place] for A. fib with RVR. EKG today reveals atrial fibrillation, rate controlled. Patient was taken off sotalol and started on Amiodarone while in [facility]. Maintained on Xarelto, continue to monitor. Peripheral edema-maintained on Lasix. Hold Lasix for now and use IV fluid Upper respiratory infection, recently diagnosed and treated with steroids as outpatient. Continue to monitor. Hypertension, restart home medication and continue to monitor Hyperlipidemia, controlled, continue to monitor Carotid artery stenosis, mild bilateral nonobstructive disease per carotid duplex done December 2018 Prediabetes Thank you for allowing us to participate in the management of Ms. Bosch. This is Liliam Edwards PA-C, as a scribe for Dr. Reyez. Patient was seen and evaluated with Liliam, examination performed, management plan was discussed, agree with the current scribed note, I made few changes to the note using Italic font Patient was having active chest pain during the interview this morning Lungs had bilateral rhonchi, wheezing. Irregular heart rate Elevation troponin Planning to proceed with cardiac catheterization. Clinical Quality Measures DVT/VTE Risk/Contraindication: Risk Factor Score Per Nursin RFS Level Per Nursing on Admit: 4+=Very High LILIAM POWERS Jun 29, 2019 8:59 am GEOFF REYEZ MD Jun 29, 2019 9:55 am
[2019-06-29] MEDS: ASPIRIN E.C. 81 MG (ECOTRIN) TAB PO SCH (09:37)
[2019-06-29] MEDS ORDERED: FURO40TA4 PO (10:04)
[2019-06-29] MEDS ORDERED: DIGO250T3 PO (10:04)
[2019-06-29] MEDS ORDERED: DILT60TA PO (10:04)
[2019-06-29] MEDS ORDERED: FLUT1DIS28 INH (10:04)
[2019-06-29] MEDS ORDERED: RT-ALBUINH INH (10:04)
[2019-06-29] MEDS ORDERED: BENZ-36 PO (10:04)
[2019-06-29] MEDS ORDERED: MECL-106 PO (10:04)
[2019-06-29] MEDS ORDERED: AMIO200T4 PO (10:04)
[2019-06-29] MEDS ORDERED: POTA20TA15 PO (10:04)
[2019-06-29] MEDS ORDERED: SENN-141 PO (10:04)
[2019-06-29] MEDS ORDERED: LIDOCAINE 1% INJ 20 ML 20 ML VIAL ONE (10:09)
[2019-06-29] MEDS ORDERED: NS IV 1000 ML 0 ML ONE (10:09)
[2019-06-29] MEDS ORDERED: HEParin (CATH LAB) 2,000 ML IV ONE (10:10)
[2019-06-29] MEDS: NS IV 1000 ML 1,000 ML IV SCH ×3 (11:08→21:02)
--- NOTE | 2019-06-29 11:39 | History & Physical ---
HPI History of Present Illness: 83 yo F with multiple recent admissions to [place] and here for chest pain. She has had recent workup in [place] and was admitted from Jun 11 to Jun 21. She has had stress test that showed no ischemia this month. Yesterday she was working with PT and started to have some chest pain that radiated to her back. Patient stated that she did not want to come to the hospital but the chest pain was becoming more constant so her daughter brought her in. This AM she has had pain on and off and now has had an increase in her troponin. Right now patient states that she is pain free while she is laying in bed. Source: patient, family (daughter) Exam Limitations: no limitations Date seen by provider: Jun 29, 2019 Time Seen by Provider: 09:45 Attending Physician Flor Burnett MD PCP SelfKenji MD Consult Date of Admission Jun 28, 2019 at 16:30 Home Medications Home Medications Reviewed patient Home Medication Reconciliation performed by pharmacy medication reconciliations technician assistant and/or nursing. Patients Allergies have been reviewed. Allergies Coded Allergies: Penicillins (Verified Allergy, Unknown, 07/21/18) propoxyphene (Verified Allergy, Unknown, 07/21/18) [id number]-[id number] Hx Patient Social History Marrital Status: Living Status: Lives at home with daughter Employed/Student: student, part-time Alcohol Use: Denies Use Recreational Drug Use: No Smoking Status: Never a Smoker 2nd Hand Smoke Exposure: No Recent Foreign Travel: No Contact w/other who traveled: No Recent Hopitalizations: No Recent Infectious Disease Expo: No Immunizations Up To Date Date of Pneumonia Vaccine: Nov 15, 2013 Date of Influenza Vaccine: Mar 07, 2019 Past Medical History CAD w/ 2 stents placed in 2012 Pre DM HTN Hypothyroidism Family Medical History Significant Family History: CAD Under 55 Years Old, CAD Over 55 Years Old, Diabetes, Stroke Review of Systems (CHC) Constitutional: no symptoms reported; No chills, No fever EENTM: no symptoms reported; No mouth pain, No nose congestion, No nose pain, No throat pain Respiratory: dyspnea on exertion, short of breath Cardiovascular: chest pain; No edema, No palpitations Gastrointestinal: abdominal pain (epigastric pain) Genitourinary: no symptoms reported; No dysuria, No frequency, No hematuria : No Musculoskeletal: back pain Skin: no symptoms reported; No lesions, No rash Psychiatric/Neurological: Anxiety Reviewed Test Results Reviewed Test Results Lab Laboratory Tests Test 06/28/19 14:26 06/28/19 16:25 06/28/19 22:55 06/29/19 04:00 Range/Units White Blood Count 13.7 H 8.9 4.3-11.0 10^3/uL Red Blood Count 4.55 4.03 L 4.35-5.85 10^6/uL Hemoglobin 13.5 11.9 11.5-16.0 G/DL Hematocrit 40 36 35-52 % Mean Corpuscular Volume 88 88 80-99 FL Mean Corpuscular Hemoglobin 30 30 25-34 PG Mean Corpuscular Hemoglobin Concent 34 34 32-36 G/DL Red Cell Distribution Width 13.0 13.3 10.0-14.5 % Platelet Count 386 304 130-400 10^3/uL Mean Platelet Volume 9.3 9.4 7.4-10.4 FL Neutrophils (%) (Auto) 73 76 H 42-75 % Lymphocytes (%) (Auto) 13 10 L 12-44 % Monocytes (%) (Auto) 11 11 0-12 % Eosinophils (%) (Auto) 2 3 0-10 % Basophils (%) (Auto) 0 0 0-10 % Neutrophils # (Auto) 10.0 H 6.7 1.8-7.8 X 10^3 Lymphocytes # (Auto) 1.8 0.9 L 1.0-4.0 X 10^3 Monocytes # (Auto) 1.5 H 1.0 0.0-1.0 X 10^3 Eosinophils # (Auto) 0.3 0.3 0.0-0.3 10^3/uL Basophils # (Auto) 0.0 0.0 0.0-0.1 10^3/uL Prothrombin Time 18.4 H 12.2-14.7 SEC INR Comment 1.5 H 0.8-1.4 Sodium Level 136 136 135-145 MMOL/L Potassium Level 4.0 4.3 3.6-5.0 MMOL/L Chloride Level 94 L 100 98-107 MMOL/L Carbon Dioxide Level 27 25 21-32 MMOL/L Anion Gap 15 H 11 5-14 MMOL/L Blood Urea Nitrogen 33 H 34 H 7-18 MG/DL Creatinine 1.48 H 1.56 H 0.60-1.30 MG/DL Estimat Glomerular Filtration Rate 34 32 BUN/Creatinine Ratio 22 22 Glucose Level 141 H 111 H 70-105 MG/DL Calcium Level 9.3 8.6 8.5-10.1 MG/DL Corrected Calcium 9.4 9.2 8.5-10.1 MG/DL Total Bilirubin 0.6 0.6 0.1-1.0 MG/DL Aspartate Amino Transf (AST/SGOT) 16 13 5-34 U/L Alanine Aminotransferase (ALT/SGPT) 41 33 0-55 U/L Alkaline Phosphatase 122 97 40-136 U/L Troponin I < 0.30 < 0.30 0.042 H 0.054 H <0.028 NG/ML Pro-B-Type Natriuretic Peptide 6615.0 H <75.0 PG/ML Total Protein 7.1 5.8 L 6.4-8.2 GM/DL Albumin 3.9 3.3 3.2-4.5 GM/DL Physical Exam-(CHC) Physical Exam Vital Signs VS - Last 72 Hours, by Label 06/28/19 06/28/19 06/28/19 06/28/19 14:35 17:44 18:35 18:44 Temp 35.9 36.2 36.3 Pulse 75 83 77 88 Resp 18 18 18 B/P (MAP) 161/59 (93) 132/72 176/66 Pulse Ox 96 97 98 O2 Delivery Room Air Room Air 06/28/19 06/28/19 06/28/19 06/28/19 19:00 19:30 20:10 20:33 Temp 36.4 Pulse 81 76 78 Resp 16 B/P (MAP) 149/69 (95) 129/67 (87) Pulse Ox 99 96 O2 Delivery Nasal Cannula Nasal Cannula Nasal Cannula O2 Flow Rate 3.00 3.00 06/28/19 06/28/19 06/28/19 06/28/19 20:48 21:00 21:03 21:33 Pulse 71 67 82 B/P (MAP) 136/74 (94) 135/71 (92) 160/72 (101) Pulse Ox 96 96 95 O2 Delivery Nasal Cannula Nasal Cannula Nasal Cannula Nasal Cannula O2 Flow Rate 3.00 3.00 3.00 3.00 06/28/19 06/28/19 06/28/1923/20 22:04 23:18 23:58 01:00 Temp 36.0 Pulse 81 82 84 75 B/P (MAP) 175/66 (102) 149/69 (95) 134/67 (89) Pulse Ox 99 96 97 O2 Delivery Nasal Cannula Nasal Cannula Nasal Cannula O2 Flow Rate 3.00 3.00 3.00 06/29/19 06/29/19 04:27 06:51 Temp 36.4 Pulse 75 74 Resp 20 B/P (MAP) 147/69 (95) Pulse Ox 98 O2 Delivery NIV Bilevel O2 Flow Rate 2.00 Capillary Refill : Less Than 3 Seconds General Appearance: WD/WN, no apparent distress HEENT: PERRL/EOMI Neck: non-tender, full range of motion, supple Respiratory: chest non-tender, lungs clear, normal breath sounds, no respirator y distress, no accessory muscle use Cardiovascular: normal peripheral pulses, no murmur Gastrointestinal: normal bowel sounds, non tender, soft, no organomegaly Back: no CVA tenderness, no vertebral tenderness Extremities: normal range of motion, non-tender, normal inspection, normal capillary refill Neurologic/Psychiatric: chemical inspector II-XII nml as tested, no motor/sensory deficits, alert, normal mood/affect, oriented x 3 Skin: normal color, warm/dry Lymphatic: no adenopathy Assessment/Plan Assessment/Plan Admission Status: Inpatient Order (span 2 midnights) Reason for Inpatient Admission: Requiring specialist care, close monitoring (1) NSTEMI (non-ST elevated myocardial infarction) Status: Acute Assessment & Plan: - Cardiology consulted and managing, appreciate recommendations (2) Angina at rest Status: Acute Assessment & Plan: - Nitro, Morphine (3) CAD (coronary artery disease) Status: Chronic Qualifiers: Qualified Codes: I25.110 - Atherosclerotic heart disease of syc[place] coronary artery with unstable angina pectoris (4) HTN (hypertension) Status: Chronic Qualifiers: Qualified Codes: I10 - Essential (primary) hypertension (5) HLD (hyperlipidemia) Status: Chronic Qualifiers: Qualified Codes: E78.5 - Hyperlipidemia, unspecified (6) Acute kidney insufficiency Status: Acute Assessment & Plan: - Will give fluids since patient is going to cath to pre hydrate, monitor BMP (7) Atrial fibrillation Status: Chronic Assessment & Plan: - Rate controlled, on PO anticoagulation Qualifiers: Qualified Codes: I48.11 - Longstanding persistent atrial fibrillation (8) Hypothyroidism Status: Chronic Assessment & Plan: - Check TSH, continue home med Qualifiers: Qualified Codes: E03.9 - Hypothyroidism, unspecified (9) DVT prophylaxis Status: Acute Clinical Quality Measures DVT/VTE Risk/Contraindication: Risk Factor Score Per Nursin RFS Level Per Nursing on Admit: 4+=Very High Copy Copies To 1: SELF,FLOR TRAN MD, MD Jun 29, 2019 11:39
[2019-06-29] MEDS ORDERED: MIDAZOLAM 5 MG/5 ML (VERSED) VIAL ONE (14:50)
[2019-06-29] MEDS ORDERED: fentaNYL INJECTION 100 MCG/2 ML AMP ONE (14:50)
[2019-06-29] MEDS ORDERED: HEParin 1000 UNIT/ML (10ML VIAL) FOR BOLUS ONE (15:11)
[2019-06-29] MEDS ORDERED: ADENOSINE 3 MG/1 ML (ADENOSCAN) 30ML VIAL IV ONE (15:11)
[2019-06-29] MEDS ORDERED: CLOPIDOGREL 300 MG (PLAVIX) TABLET PO ONE (15:42)
[2019-06-29] MEDS ORDERED: ASPIRIN 325 MG (5 GR) TABLET ONE (15:42)
--- NOTE | 2019-06-29 15:54 | Cardiac Procedure Note-CS/ASA ---
Pre-Procedure Note Pre-Op Procedure Note H&P Reviewed The H&P was reviewed, patient examined and no changes noted. Date H&P Reviewed: Jun 29, 2019 Time H&P Reviewed: 13:00 Conscious Sedation Pre-Proced Time 13:00 ASA Score 3 For ASA 3 and 4: Consider anesthesia and medical clearance. Also, for patients with a history of failed moderate sedation consider anesthesia. Airway Lungs Heart ASA score ASA 1: a normal healthy patient ASA 2: a patient with a mild systemic disease (mid diabetes, controlled hypertension, obesity x ASA 3: a patient with a severe systemic disease that limits activity (angina, COPD, prior Myocardial infarction) ASA 4: a patient with an incapacitating disease that is a constant threat to life (CHF, renal failure) ASA 5: a moribund patient not expected to survive 24 hrs. (ruptured aneurysm) ASA 6: a declared brain- patient whose organs are being harvested. For emergent operations, add the letter E after the classification Mallampati Classification Grade 3 Sedation Plan Analgesia, Amnesia, Plan communicated to team members, Discussed options with patient/fam, Discussed risks with patient/fam The patient is an appropriate candidate to undergo the planned procedure, sedation, and anesthesia. The patient immediately re-assessed prior to indication. GEOFF THOMSON MD Jun 29, 2019 15:54
--- NOTE | 2019-06-29 15:59 | Cardiac Cath Report ---
Cardiac Cath Report Physician (s)/Shipmaster (s) Physician GEOFF THOMSON MD Pre-Procedure Diagnosis Pre-Procedure Diagnosis: chest pain, coronary artery disease Post-Procedure Note Procedure Start Date: Jun 29, 2019 Name of Procedure: Coronary angiogram Stent to the right coronary artery Balloon angioplasty to the right coronary artery Findings/Procedure Note PROCEDURE NOTE: 83-year-old lady with known coronary artery disease, admitted with non-ST e levation myocardial infarction, scheduled for cardiac catheterization possible PTCA After explaining the procedure to the patient, all pros and cons were explained, all questions were answered. The patient signed the consent and then she was placed on the cardiac catheterization laboratory. Groin was prepped SL fashion local anesthesia was used. Sheath placed in the right femoral artery. Ramirez right and left catheter were used to access the coronary system. Angiogram to the left system was done, I used JR guide with sideholes and evaluated the right coronary artery, known to have ostial right coronary artery calcification and the lesion, FFR was measured and it was 0.9, after adenosine it was 0.79, I proceeded with balloon angioplasty to the ostium of the right coronary artery and balloon angioplasty for moderate stenosis in the midright coronary artery with an old stent then deployed Maryann 3 x 15 mm stent to the ostium of the right coronary artery expanded to 3.25 mm with excellent results. At the end of the procedure the sheath was removed. Closure device was used FINDINGS: Hemodynamics Aorta 143/57 mean of 41 ANATOMY: Left Main has moderate stenosis with calcification at the midportion Left Anterior Descending has moderate disease at the midportion small vessel disease distally Left Circumflex has mild to moderate disease nonobstructive disease Right Coronory Artery is large dominant with 50 percent mid right coronary artery in-stent restenosis, severe ostial stenosis confirmed by FFR, balloon angioplasty to the midright and ostial right then deployment of Maryann 3 x 15 mm to the ostium of the right coronary artery expanded to 3.25 mm with excellent results CONCLUSION: 1. Severe stenosis of the ostium of the right coronary artery, successful balloon angioplasty and stenting using Maryann 3 x 15 mm expanded to 3.25 mm with excellent results. 2. 50 percent in-stent restenosis in the midright coronary artery successful balloon angioplasty using 3 x 20 millimeter emerge with excellent results 3. Moderate stenosis at the mid left main, mid LAD and mid circumflex artery, small vessel disease DISCUSSION AND RECOMMENDATION: Started on aspirin and Plavix, continue Xarelto and maximize medical therapy Anesthesia Type: Conscious Sedation Estimated blood loss (mL): 25 ml Contrast Amount: 85 ml Total Radiation Dose: 787 mGy Post-Procedure Diagnosis Post-operative diagnosis: Non-ST elevation myocardial infarction Coronary artery disease Hypertension Hyperlipidemia GEOFF THOMSON MD Jun 29, 2019 15:59
[2019-06-29] MEDS ORDERED: PATIENT MAY USE OWN MEDS, ALL PO SCH (16:00)
[2019-06-29] MEDS ORDERED: RIVAROXABAN 20 MG TABLET (XARELTO) PO SCH (18:00)
[2019-06-29] MEDS: DILTIAZEM 60 MG (CARDIZEM) TAB PO SCH ×2 (19:27→20:38)
[2019-06-29] MEDS: AMIODARONE 200 MG (CORDARONE) TAB PO SCH (20:38)
[2019-06-29] MEDS: RT-ADVAIR HFA 45/21 MCG PER PUFF IH SCH (21:26)
[2019-06-30] VITALS: BP 122/65
[2019-06-30] MEDS: NS IV 1000 ML 1,000 ML IV SCH ×2 (03:38→05:52)
[2019-06-30 04:00] VITALS: BP 129/73
[2019-06-30 04:24] LABS: BASOPHILS % (AUTO) 0 % (0-10); EOSINOPHILS # (AUTO) 0.3 10^3/uL (0.0-0.3); EOSINOPHILS % (AUTO) 3 % (0-10); HEMATOCRIT 34 % (35-52); HEMOGLOBIN 11.4 G/DL (11.5-16.0); LYMPHOCYTES # (AUTO) 0.7 X 10^3 (1.0-4.0); LYMPHOCYTES % (AUTO) 8 % (12-44); MEAN CORPUSCULAR HEMOGLOBIN 30 PG (25-34); MEAN CORPUSCULAR HGB CONC 34 G/DL (32-36); MEAN CORPUSCULAR VOLUME 88 FL (80-99); MEAN PLATELET VOLUME 9.3 FL (7.4-10.4); MONOCYTES # (AUTO) 0.9 X 10^3 (0.0-1.0); MONOCYTES % (AUTO) 10 % (0-12); NEUTROPHILS # (AUTO) 7.4 X 10^3 (1.8-7.8); NEUTROPHILS % (AUTO) 79 % (42-75); PLATELET COUNT 271 10^3/uL (130-400); RED CELL DISTRIBUTION WIDTH 12.8 % (10.0-14.5); WHITE BLOOD COUNT 9.4 10^3/uL (4.3-11.0)
[2019-06-30 04:45] LABS: CALCIUM 8.4 MG/DL (8.5-10.1); CREATININE SERUM 1.41 MG/DL (0.60-1.30)
[2019-06-30] MEDS ORDERED: LEVOTHYROXINE 25 MCG (LEVOTHROID) TAB PO SCH (05:00)
[2019-06-30] MEDS: DILTIAZEM 60 MG (CARDIZEM) TAB PO SCH ×2 (05:31→10:40)
[2019-06-30] MEDS: CATHETER FLUSH 10 ML SYR IV SCH (05:34)
[2019-06-30] MEDS: RT-ADVAIR HFA 45/21 MCG PER PUFF IH SCH (06:53)
[2019-06-30] MEDS ORDERED: KCL 20 MEQ TAB (K-DUR) PO SCH (07:00)
[2019-06-30] MEDS ORDERED: PANTOPRAZOLE 20 MG TABLET (PROTONIX) PO SCH (07:00)
[2019-06-30 08:30] VITALS: BP 127/70
[2019-06-30] MEDS ORDERED: ASPIRIN E.C. 81 MG (ECOTRIN) TAB PO SCH (09:00)
[2019-06-30] MEDS ORDERED: CLOPIDOGREL 75 MG (PLAVIX) TABLET PO SCH (09:00)
[2019-06-30] MEDS ORDERED: DIGOXIN 0.25 MG (LANOXIN) TAB PO SCH (09:00)
[2019-06-30] MEDS ORDERED: FUROSEMIDE 40 MG (LASIX) TAB PO SCH (09:00)
[2019-06-30] MEDS ORDERED: CLOP75TA28 PO (09:39)
[2019-06-30] MEDS ORDERED: PANT40SU PO (09:39)
[2019-06-30] MEDS ORDERED: ASPI-983 PO (09:39)
--- NOTE | 2019-06-30 09:40 | Discharge Inst-Post CATH ---
Discharge Inst-CATH/EP Problems Reviewed?: Yes Post Cardiac Cath/EP D/C Inst Follow Up/Plan Follow-up with Dr. Reyez's office 2 weeks <b>CARDIAC CATH/EP PROCEDURE DISCHARGE INSTRUCTIONS</b> ACTIVITY * Go Home directly and rest. * Limit activity of the leg (or wrist if it was used) for 7 days including aerobics, swimming, jogging, bicycling, etc. * Restrict stair-climbing for 7 days if possible, if not, climb up with your non-cath leg, then bring together on the same step. * Avoid lifting, pushing, pulling or excessive movement of the affected extremity for 7 days. * Customary sexual activity may be resumed after 2 days-use caution not to use a position that strains or causes pain to the affected extremity. * No driving for 24 hours. * NO SMOKING. * Avoid straining for bowel movements for 7 days. * Gentle walking on level ground is allowed. * Returning to work will depend on the type of procedure and the results. Your doctor will discuss this with you. CALL YOUR DOCTOR FOR ANY OF THE FOLLOWING: *If bleeding from the puncture site occurs- Apply gentle pressure to site with clean cloth and call your doctor or EMS. * If a knot or lump forms under the skin, increases in size, or causes pain. * If bruising appears to be worsening or moving further down your leg instead of disappearing. * Temperature above 101 F. CARE OF YOUR GROIN INCISION; * Bruising or purple discoloration of the skin near the puncture site is common. * You may shower only, no bathtub bathing for 5 days. Be careful to avoid slipping as your leg may feel stiff. * If a closure device was used on your femoral artery, please see the attached guide regarding care of the device and your leg. * Leave dressing on FOR 24 hours. CARE OF YOUR WRIST INCISION; * Bruising or purple discoloration of the skin near the puncture site is common. * You may shower. * DO NOT submerge wrist. * Leave dressing on FOR 24 hours. GEOFF REYEZ MD Jun 30, 2019 09:40
--- NOTE | 2019-06-30 09:45 | Cardiology Progress Note ---
Subjective Date Seen by Provider: Jun 30, 2019 Time Seen by Provider: 09:41 Subjective/Events-last exam Patient is laying down in bed, feeling better, no chest pain was reported. Review of Systems General: No Chills, No Night Sweats, No Fatigue, No Malaise, No Appetite, No Other HEENT: No Head Aches, No Visual Changes, No Eye Pain, No Ear Pain, No Dysphasia, No Sinus Congestion, No Post Nasal Drip, No Sore Throat, No Other Pulmonary: No Dyspnea, No Cough, No Pleuritic Chest Pain, No Other Cardiovascular: No: Chest Pain, Palpitations, Orthopnea, Paroxysmal Noc. Dyspnea, Edema, Lt Headedness, Other Objective-Cardiology Exam Last Set of Vital Signs Vital Signs 06/29/19 06/30/19 06/30/19 20:00 04:00 07:00 Temp 37.1 Pulse 82 Resp 20 B/P (MAP) 129/73 (91) Pulse Ox 96 O2 Delivery Nasal Cannula O2 Flow Rate 1.00 Capillary Refill : Less Than 3 Seconds I&O Intake and Output0 06/30/19 00:00 Intake Total 300 ml Output Total 525 ml Balance -225 ml Intake Oral 300 ml Output Urine Total 525 ml # Urine Diapers 1 General: Alert, Oriented X3, Cooperative HEENT: Atraumatic, PERRLA Neck: Supple, No JVD, No Thyromegaly Lungs: Clear to Auscultation, Normal Air Movement Heart: Regular Rate, Normal S1, Normal S2, Other (Systolic murmur at the left sternal border) Abdomen: Normal Bowel Sounds, Soft, No Tenderness, No Hepatosplenomegaly, No Masses Extremities: No Clubbing, No Cyanosis, No Edema, Normal Pulses, No Tenderness/Swelling Skin: No Rashes, No Breakdown, No Significant Lesion Neuro: Normal Gait, Normal Speech, Strength at 5/5 X4 Ext, Normal Tone, Sensation Intact Psych/Mental Status: Mental Status NL, Mood NL Results Lab Laboratory Tests 06/30/19 04:05 A/P-Cardiology Admission Diagnosis Chest pain Elevated BNP CAD Persistent atrial fibrillation Assessment/Plan Chest pain, non-ST elevation of cardiac infarction, cardiac catheterization was done with stenting to the proximal right coronary artery and balloon angioplasty for in-stent restenosis in the midright coronary artery Elevated BNP, echocardiogram showed left ventricular hypertrophy with hyperactive ventricle, gradient across the left ventricular outflow tract probably due to hypovolemia, chronic left ventricular diastolic dysfunction, hypertensive heart disease. Coronary artery disease, history of multiple interventions in the past, had a total of 3 stents. Underwent cardiac catheterization on November 15, 2018 revealing moderate stenosis at the ostium of the right coronary artery, heavily calcified. 2 stents in the mid right coronary artery are patent with small vessel disease distally. Calcified left main coronary artery is moderate stenosis, nonobstructive disease. Patent stents in the mid circumflex artery with no obstructive disease, mild disease in LAD. Cardec catheterization was done on June 29, 2019: 1. Severe stenosis of the ostium of the right coronary artery, successful balloon angioplasty and stenting using Maryann 3 x 15 mm expanded to 3.25 mm with excellent results. 2. 50 percent in-stent restenosis in the midright coronary artery successful balloon angioplasty using 3 x 20 millimeter emerge with excellent results 3. Moderate stenosis at the mid left main, mid LAD and mid circumflex artery, small vessel disease Persistent atrial fibrillation, patient recently hospitalized in [place] for A. fib with RVR. EKG today reveals atrial fibrillation, rate controlled. Patient was taken off sotalol and started on Amiodarone while in [facility]. Maintained on Xarelto, continue to monitor. High risk of bleed, patient will be maintained on aspirin, Plavix and Xarelto. I will change omeprazole to Protonix 40 mg daily Peripheral edema, better at this time. Upper respiratory infection, recently diagnosed and treated with steroids as outpatient. Continue to monitor. Hypertension, continue on home medication Hyperlipidemia, controlled, continue to monitor Carotid artery stenosis, mild bilateral nonobstructive disease per carotid duplex done December 2018 Prediabetes Clinical Quality Measures DVT/VTE Risk/Contraindication: Risk Factor Score Per Nursin RFS Level Per Nursing on Admit: 4+=Very High GEOFF THOSMON MD Jun 30, 2019 09:45
--- NOTE | 2019-06-30 10:07 | Discharge Summary ---
Diagnosis/Chief Complaint Date of Admission Jun 28, 2019 at 16:30 Date of Discharge Discharge Diagnosis Problems/Diagnosis: (1) NSTEMI (non-ST elevated myocardial infarction) Assessment & Plan: - Cardiology consulted and managing, appreciate recommendations Status: Acute (2) Angina at rest Assessment & Plan: - Nitro, Morphine Status: Acute (3) CAD (coronary artery disease) Qualifiers: Qualified Codes: I25.110 - Atherosclerotic heart disease of [place] coronary artery with unstable angina pectoris Status: Chronic (4) HTN (hypertension) Qualifiers: Qualified Codes: I10 - Essential (primary) hypertension Status: Chronic (5) HLD (hyperlipidemia) Qualifiers: Qualified Codes: E78.5 - Hyperlipidemia, unspecified Status: Chronic (6) Acute kidney insufficiency Assessment & Plan: - Will give fluids since patient is going to cath to pre hydrate, monitor BMP Status: Acute (7) Atrial fibrillation Assessment & Plan: - Rate controlled, on PO anticoagulation Qualifiers: Qualified Codes: I48.11 - Longstanding persistent atrial fibrillation Status: Chronic (8) Hypothyroidism Assessment & Plan: - Check TSH, continue home med Qualifiers: Qualified Codes: E03.9 - Hypothyroidism, unspecified Status: Chronic (9) DVT prophylaxis Status: Acute Chief Complaint/HPI Chief Complaint/HPI 83 yo F with multiple recent admissions to [place] and here for chest pain. She has had recent workup in [place] and was admitted from Jun 11 to Jun 21. She has had stress test that showed no ischemia this month. Yesterday she was working with PT and started to have some chest pain that radiated to her back. Patient stated that she did not want to come to the hospital but the chest pain was becoming more constant so her daughter brought her in. This AM she has had pain on and off and now has had an increase in her troponin. Right now patient states that she is pain free while she is laying in bed. Discharge Summary-Simple/Stand Consultations Discharge Physical Examination Allergies: Coded Allergies: Penicillins (Verified Allergy, Unknown, 07/21/18) propoxyphene (Verified Allergy, Unknown, 07/21/18) Vitals & I&Os Vital Sign - Last 12Hours Date Time Temp Pulse Resp B/P (MAP) Pulse Ox O2 Delivery O2 Flow Rate FiO2 06/30/19 07:00 82 06/30/19 04:00 20 129/73 (91) 96 Nasal Cannula 1.00 06/29/19 20:00 37.1 Intake and Output 06/30/19 00:00 Intake Total 300 ml Output Total 375 ml Balance -75 ml Hospital Course See final discharge diagnosis. Discharge Instructions to patient/family Please see electronic discharge instructions given to patient. Discharge Medications Reviewed and agree with Discharge Medication list on patient's Discharge Instruction sheet Clinical Quality Measures DVT/VTE Risk/Contraindication: Risk Factor Score Per Nursin RFS Level Per Nursing on Admit: 4+=Very High FLOR HUANG MD Jun 30, 2019 10:07
--- NOTE | 2019-06-30 10:09 | Discharge Summary ---
Discharge [facility] Reconcile Patient Problems Problems Reviewed?: Yes Discharge Medications New, Converted or Re-Newed RX: Transmitted to Pharmacy New Medications: Pantoprazole Sodium (Protonix) 40 Mg Granpkt.dr 40 MG PO DAILY, #30 TAB 3 Refills Aspirin (Aspirin EC) 81 Mg Tablet.dr 81 MG PO DAILY, #100 TAB 3 Refills Clopidogrel Bisulfate (Clopidogrel) 75 Mg Tablet 75 MG PO DAILY, #30 TAB 4 Refills Continued Medications: Albuterol Sulfate (Proair Hfa) 1 Puff Puff 2 PUFF INH Q6H PRN for SHORTNESS OF BREATH, INHALER Amiodarone HCl (Amiodarone HCl) 200 Mg Tablet 200 MG PO BID, TAB Atorvastatin Calcium (Atorvastatin Calcium) 40 Mg Tablet 40 MG PO 1800, TAB LAST FILLED #90 7-3-19 Benzonatate (Benzonatate) 100 Mg Capsule 100 MG PO TID PRN for COUGH, CAP Digoxin (Digoxin) 250 Mcg Tablet 250 MCG PO DAILY, TAB Diltiazem HCl (Diltiazem HCl) 60 Mg Tablet 60 MG PO Q6H, TAB Fluticasone/Salmeterol (Advair 100-50 Diskus) 1 Each Blst.w.dev 1 PUFF INH BID, INHALER Furosemide (Furosemide) 40 Mg Tablet 40 MG PO DAILY, TAB Levothyroxine Sodium (Synthroid) 25 Mcg Tablet 25 MCG PO 0500, TAB Magnesium Oxide (Magnesium Oxide) 400 Mg Tablet 400 MG PO DAILY, TAB Meclizine HCl (Meclizine HCl) 25 Mg Tablet 25 MG PO TID PRN for DIZZINESS, TAB Potassium Chloride (Potassium Chloride) 20 Meq Tab.er.prt 20 MEQ PO DAILY, TAB Rivaroxaban (Xarelto) 20 Mg Tablet 20 MG PO 1800, TAB Sennosides (Senna) 8.6 Mg Tablet 8.6 MG PO Q6H PRN for CONSTIPATION-5TH LINE, TAB Discontinued Medications: Omeprazole (Omeprazole) 20 Mg Capsule. 20 MG PO 0700, CAP Patient Instructions Goal/Follow Up Appt: F.u with Haily Frias on Wed @ 1 pm You will also see Cardiology next week Activity & Diet Discharge Diet: Cardiac Diet Activity as Tolerated: Yes Copy Copies To 1: MORENITA Ricardo HOLLY R MD Jun 30, 2019 10:09
[2019-06-30] MEDS: ASPIRIN E.C. 81 MG (ECOTRIN) TAB PO SCH (10:40)
[2019-06-30] MEDS: AMIODARONE 200 MG (CORDARONE) TAB PO SCH (10:40)
[2019-06-30 12:49] VITALS: BP 163/69
== END 2019-06-30 12:49 | disposition home or self-care (01) | DRG 247 ==
LOC: EDUNIT# 14:23 → ER FS 14:24 → CSD 16:30
PROVIDERS: ADMIT Family Medicine; ATTEND Family Medicine
PROC: 027034Z Dilation of Coronary Artery, One Artery with Drug-eluting Intraluminal Device, Percutaneous Approach (ICD-10-PCS; principal; 2019-06-29)
PROC: 02703DZ Dilation of Coronary Artery, One Artery with Intraluminal Device, Percutaneous Approach (ICD-10-PCS; 2019-06-29)
PROC: 4A023N7 Measurement of Cardiac Sampling and Pressure, Left Heart, Percutaneous Approach (ICD-10-PCS; 2019-06-29)
PROC: B2111ZZ Fluoroscopy of Multiple Coronary Arteries using Low Osmolar Contrast (ICD-10-PCS; 2019-06-29)
PROC: B2151ZZ Fluoroscopy of Left Heart using Low Osmolar Contrast (ICD-10-PCS; 2019-06-29)
DX: I21.4 Non-ST elevation (NSTEMI) myocardial infarction (principal); T82.855A Stenosis of coronary artery stent, initial encounter; I13.0 Hypertensive heart and chronic kidney disease with heart failure and stage 1 through stage 4 chronic kidney disease, or unspecified chronic kidney disease; I50.32 Chronic diastolic (congestive) heart failure; I48.11 Longstanding persistent atrial fibrillation; I25.110 Atherosclerotic heart disease of native coronary artery with unstable angina pectoris; N18.3 Chronic kidney disease, stage 3 (moderate); E78.00 Pure hypercholesterolemia, unspecified; E03.9 Hypothyroidism, unspecified; I65.23 Occlusion and stenosis of bilateral carotid arteries; R73.03 Prediabetes; Z95.5 Presence of coronary angioplasty implant and graft
CPT/HCPCS: 36415; 71045; 80048; 80053; 80162; 83880; 84443; 84484; 85025; 85027; 85610; 93005; 93306; 93454; 94640

== ENCOUNTER 2019-07-01 19:34 | Emergency (ER) | payer MEDICARE, OTHER ==
[~2019-07-01] VITALS: Ht 157.4 cm; Wt 88.6 kg
[~2019-07-01 19:34] MED LIST changes: +AMIO200T4 PO; +ASPI-983 PO; +BENZ-36 PO; +CLOP75TA28 PO; +DIGO250T3 PO; +DILT60TA PO; +FLUT1DIS28 INH; +FURO40TA4 PO; +MECL-106 PO; +PANT40SU PO; +POTA20TA15 PO; +RT-ALBUINH INH; +SENN-141 PO
--- NOTE | 2019-07-01 19:41 | ED Dyspnea ---
General Stated Complaint: SOB History of Present Illness Date Seen by Provider: Jul 01, 2019 Time Seen by Provider: 19:40 Initial Comments 83-year-old female presents with feelings of shortness of breath. Patient uses 2 L home oxygen at night. She reports she's felt short of breath with tightness in her abdominal area since around 4 AM. Patient called EMS due to the shortness of breath. She was 100% on 2 L however EMS bumped her to 4 L for an unknown reason. Patient had a stent placed 2 days ago at [facility] was discharged late yesterday afternoon home. She denies any chest pain. Does not have any nausea vomiting diaphoresis.. Allergies and Home Medications Allergies Coded Allergies: Penicillins (Verified Allergy, Unknown, 07/21/18) propoxyphene (Verified Allergy, Unknown, 07/21/18) Home Medications Albuterol Sulfate 1 Puff Puff, 2 PUFF INH Q6H PRN for SHORTNESS OF BREATH, (Reported) Amiodarone HCl 200 Mg Tablet, 200 MG PO BID, (Reported) Aspirin 81 Mg Tablet.dr, 81 MG PO DAILY Prescribed by: GEOFF THOMSON on 06/30/19938 Atorvastatin Calcium 40 Mg Tablet, 40 MG PO 1800, (Reported) LAST FILLED #90 7-3-19 Benzonatate 100 Mg Capsule, 100 MG PO TID PRN for COUGH, (Reported) Clopidogrel Bisulfate 75 Mg Tablet, 75 MG PO DAILY Prescribed by: GEOFF THOMSON on 06/30/19938 Digoxin 250 Mcg Tablet, 250 MCG PO DAILY, (Reported) Diltiazem HCl 60 Mg Tablet, 60 MG PO Q6H, (Reported) Fluticasone/Salmeterol 1 Each Blst.w.dev, 1 PUFF INH BID, (Reported) Furosemide 40 Mg Tablet, 40 MG PO DAILY, (Reported) Levothyroxine Sodium 25 Mcg Tablet, 25 MCG PO 0500, (Reported) Magnesium Oxide 400 Mg Tablet, 400 MG PO DAILY, (Reported) Meclizine HCl 25 Mg Tablet, 25 MG PO TID PRN for DIZZINESS, (Reported) Pantoprazole Sodium 40 Mg Granpkt.dr, 40 MG PO DAILY Prescribed by: GEOFF THOMSON on 06/30/19938 Potassium Chloride 20 Meq Tab.er.prt, 20 MEQ PO DAILY, (Reported) Rivaroxaban 20 Mg Tablet, 20 MG PO 1800, (Reported) Sennosides 8.6 Mg Tablet, 8.6 MG PO Q6H PRN for CONSTIPATION-5TH LINE, (Reported) Patient Home Medication List Home Medication List Reviewed: Yes Review of Systems Review of Systems Constitutional: No chills, No fever Respiratory: cough, short of breath Cardiovascular: No chest pain, No palpitations Gastrointestinal: No nausea, No vomiting; other ("abdominal tightness") Musculoskeletal: no symptoms reported Skin: no symptoms reported Psychiatric/Neurological: No Symptoms Reported Endocrine: No Symptoms Reported Past Tqbdmop-Szouwa-Ayjvpk Hx Past Med/Social Hx: Reviewed Nursing Past Med/Soc Hx Patient Social History 2nd Hand Smoke Exposure: No Recent Foreign Travel: No Contact w/Someone Who Travel: No Recent Hopitalizations: No Immunizations Up To Date Date of Pneumonia Vaccine: Nov 15, 2013 Date of Influenza Vaccine: Mar 07, 2019 Past Medical History Surgeries: Yes (STENT X 3) Coronary Stent Respiratory: Yes Pneumonia Cardiac: Yes (Paroxysmal A Fib, CHF) Atrial Fibrillation, Chronic Edema/Swelling, Coronary Artery Disease, High Leonila sterol, Hypertension Neurological: No Genitourinary: Yes (Stage 3 CKD) Gastrointestinal: No Musculoskeletal: No Endocrine: Yes (Dx "Prediabetes") Hypothyroidsim HEENT: No Cancer: No Psychosocial: No Integumentary: No Blood Disorders: No Family Medical History CAD Under 55 Years Old, CAD Over 55 Years Old, Diabetes, Stroke Physical Exam Vital Signs Vital Signs - First Documented 07/01/19 07/01/19 19:34 22:19 Temp 37.8 Pulse 66 Resp 20 B/P (MAP) 150/63 (92) Pulse Ox 96 O2 Delivery Room Air Capillary Refill : Height, Weight, BMI Height: 5'4.00" Weight: 190lbs. 0.7oz. [id number]; 215.67 BMI Method:Stated General Appearance: No Apparent Distress Respiratory: Lungs Clear, Normal Breath Sounds Cardiovascular: Regular Rate, Rhythm, No Edema Gastrointestinal: Soft, Other (when palpate upper abdomen. She complains a tightness that causes her short of breath) Extremity: Normal Capillary Refill Neurologic/Psychiatric: Alert, Normal Mood/Affect, traveling operator II-XII Norm as Tested Progress/Results/Core Measures Results/Orders Lab Results Laboratory Tests Test 07/01/19 19:57 Range/Units White Blood Count 12.7 H 4.3-11.0 10^3/uL Red Blood Count 4.03 L 4.35-5.85 10^6/uL Hemoglobin 12.1 11.5-16.0 G/DL Hematocrit 35 35-52 % Mean Corpuscular Volume 87 80-99 FL Mean Corpuscular Hemoglobin 30 25-34 PG Mean Corpuscular Hemoglobin Concent 35 32-36 G/DL Red Cell Distribution Width 13.1 10.0-14.5 % Platelet Count 252 130-400 10^3/uL Mean Platelet Volume 9.5 7.4-10.4 FL Neutrophils (%) (Auto) 81 H 42-75 % Lymphocytes (%) (Auto) 7 L 12-44 % Monocytes (%) (Auto) 8 0-12 % Eosinophils (%) (Auto) 2 0-10 % Basophils (%) (Auto) 0 0-10 % Neutrophils # (Auto) 10.3 H 1.8-7.8 X 10^3 Lymphocytes # (Auto) 0.9 L 1.0-4.0 X 10^3 Monocytes # (Auto) 1.1 H 0.0-1.0 X 10^3 Eosinophils # (Auto) 0.3 0.0-0.3 10^3/uL Basophils # (Auto) 0.0 0.0-0.1 10^3/uL Neutrophils % (Manual) 79 % Lymphocytes % (Manual) 9 % Monocytes % (Manual) 7 % Eosinophils % (Manual) 3 % Basophils % (Manual) 2 % Platelet Estimate ADEQUATE Sodium Level 133 L 135-145 MMOL/L Potassium Level 3.8 3.6-5.0 MMOL/L Chloride Level 95 L 98-107 MMOL/L Carbon Dioxide Level 22 21-32 MMOL/L Anion Gap 16 H 5-14 MMOL/L Blood Urea Nitrogen 29 H 7-18 MG/DL Creatinine 1.51 H 0.60-1.30 MG/DL Estimat Glomerular Filtration Rate 33 BUN/Creatinine Ratio 19 Glucose Level 131 H 70-105 MG/DL Calcium Level 8.7 8.5-10.1 MG/DL Corrected Calcium 9.3 8.5-10.1 MG/DL Total Bilirubin 0.6 0.1-1.0 MG/DL Aspartate Amino Transf (AST/SGOT) 15 5-34 U/L Alanine Aminotransferase (ALT/SGPT) 24 0-55 U/L Alkaline Phosphatase 93 40-136 U/L Troponin I < 0.30 <0.30 NG/ML Pro-B-Type Natriuretic Peptide 4939.0 H <75.0 PG/ML Total Protein 6.2 L 6.4-8.2 GM/DL Albumin 3.2 3.2-4.5 GM/DL My Orders Orders - HUSSEIN,DONALD L DO Chest Pa/Lat (2 View) (07/01/19 19:41) Ekg Tracing (07/01/19 19:41) Cbc With Automated Diff (07/01/19 19:41) Comprehensive Metabolic Panel (07/01/19 19:41) Probnp Fs (07/01/19 19:41) Troponin I Fs (07/01/19 19:41) Abdomen (Kub) 1 View (07/01/19 19:52) Manual Differential (07/01/19 19:57) Metoclopramide Injection (Reglan Injecti (07/01/19 21:06) Ns Iv 500 Ml (Sodium Chloride 0.9%) (07/01/19 21:25) Medications Given in ED Current Medications Medications Dose Ordered Sig/Ammy Route Start Time Stop Time Status Last Admin Dose Admin Sodium Chloride 500 ml @ 0 mls/hr Q0M ONCE IV 07/01/19 21:25 07/01/19 21:26 DC 07/01/19 21:30 0 MLS/HR Vital Signs/I&O 07/01/19 07/01/19 19:34 22:19 Temp 37.8 37.3 Pulse 66 68 Resp 20 20 B/P (MAP) 150/63 (92) 153/45 Pulse Ox 96 O2 Delivery Room Air Room Air 07/02/19 00:00 Intake Total 522 ml Balance 522 ml Progress Progress Note : Time: 22:14 Progress Note Patient's symptoms were much more consistent with a bloating/abdominal colic. Her symptoms were reproducible with some palpation on her abdomen. She was removed from oxygen when she presented to the ER and remained in the upper 90s throughout her whole stay. She never did complain of chest pain or shortness of breath up in her chest or tightness in her chest. It was all in the abdomen. She did pass some gas and has some relief following the Reglan. I discussed with her that she needs to be sure she is drinking plenty of fluids, and ambulating that sure that her bowel does not get an ileus post surgical. Discussed with family that they could use some some Ethicon for the bloating along with some MiraLAX if she becomes bound up. She will be discharged home in stable condition. Departure Impression Primary Impression: Abdominal bloating with cramps Additional Impression: Colic in adult Disposition: 01 HOME, SELF-CARE Condition: Stable Departure-Patient Inst. Referrals: SELFRASHAUN MD (PCP) Primary Care Physician BALDEV CORREA APRN (Family) Primary Care Physician Patient Instructions: Gas and Bloating Add. Discharge Instructions: Drink plenty of fluids Ambulate frequently Follow-up to her primary care provider next week Emergency department focuses on treating and ruling out life-threatening diseases. Whenever possible, a diagnosis is given. However, most patients are given an impression based on their history, physical exam, and workup during your brief time in the ER. Information about probable diagnosis and other educational material has been provided. Please take the time to read and understand this information. It is very important that you follow up with a physician as discussed during the visit today. Failure to adhere to your follow-up instructions may lead to severe disability, injury, or so please make sure to keep your appointments or obtain one as requested. Please keep in mind the emergency department is not designed to your primary care or "family doctor" and nonurgent issues are best evaluated by an outpatient physician DONALD HUSSEIN DO Jul 01, 2019 19:40
[2019-07-01 20:14] LABS: HEMATOCRIT 35 % (35-52); HEMOGLOBIN 12.1 G/DL (11.5-16.0); MEAN CORPUSCULAR HEMOGLOBIN 30 PG (25-34); WHITE BLOOD COUNT 12.7 10^3/uL (4.3-11.0)
[2019-07-01 20:15] LABS: MEAN CORPUSCULAR VOLUME 87 FL (80-99)
[2019-07-01 20:16] LABS: MEAN CORPUSCULAR HGB CONC 35 G/DL (32-36); MEAN PLATELET VOLUME 9.5 FL (7.4-10.4); PLATELET COUNT 252 10^3/uL (130-400); RED CELL DISTRIBUTION WIDTH 13.1 % (10.0-14.5)
[2019-07-01 20:19] LABS: LYMPHOCYTES % (AUTO) 7 % (12-44); MONOCYTES % (AUTO) 8 % (0-12); NEUTROPHILS % (AUTO) 81 % (42-75)
[2019-07-01 20:20] LABS: BASOPHILS % (AUTO) 0 % (0-10); EOSINOPHILS # (AUTO) 0.3 10^3/uL (0.0-0.3); EOSINOPHILS % (AUTO) 2 % (0-10); LYMPHOCYTES # (AUTO) 0.9 X 10^3 (1.0-4.0); MONOCYTES # (AUTO) 1.1 X 10^3 (0.0-1.0); NEUTROPHILS # (AUTO) 10.3 X 10^3 (1.8-7.8)
--- NOTE | 2019-07-01 20:31 | Diagnostic Imaging Report ---
INDICATION: Stents placed yesterday. Shortness of breath. EXAMINATION: 2 view chest 07/01/2019. COMPARISON: 06/28/2019. FINDINGS: 2 views of the chest. The heart is prominent but stable. Pulmonary vasculature is unremarkable. Linear markings at left lung base unchanged. There are no infiltrates or effusions. No pneumothorax. IMPRESSION: 1. Stable chest. No acute abnormality. Dictated by: Dictated on workstation # [id number]
[2019-07-01 20:34] LABS: BASOPHILS % (MANUAL) 2 %; EOSINOPHILS % (MANUAL) 3 %; LYMPHOCYTES % (MANUAL) 9 %; MONOCYTES % (MANUAL) 7 %; NEUTROPHILS % (MANUAL) 79 %
[2019-07-01 20:35] LABS: PLATELET ESTIMATE ADEQUATE
[2019-07-01 21:05] LABS: POTASSIUM 3.8 MMOL/L (3.6-5.0); SODIUM 133 MMOL/L (135-145)
[2019-07-01 21:06] LABS: ALANINE AMINOTRANSFERASE 24 U/L (0-55); ALKALINE PHOSPHATASE 93 U/L (40-136); BILIRUBIN,TOTAL 0.6 MG/DL (0.1-1.0); BUN/CREATININE RATIO 19; CALCIUM 8.7 MG/DL (8.5-10.1); CARBON DIOXIDE 22 MMOL/L (21-32); CHLORIDE 95 MMOL/L (98-107); CREATININE SERUM 1.51 MG/DL (0.60-1.30); GFR ESTIMATED 33; GLUCOSE 131 MG/DL (70-105)
[2019-07-01] MEDS ORDERED: METOCLOPRAMIDE INJ 10 MG/2 ML (REGLAN) IVP STA (21:06)
[2019-07-01 21:07] LABS: ALBUMIN 3.2 GM/DL (3.2-4.5); TOTAL PROTEIN 6.2 GM/DL (6.4-8.2)
--- NOTE | 2019-07-01 21:12 | Diagnostic Imaging Report ---
INDICATION: Heart stents placed yesterday. Shortness of air, abdominal pain. EXAMINATION: Abdomen, 07/01/2019. FINDINGS: Two views of the abdomen. Nonobstructive bowel gas pattern noted with diffuse minimally prominent loops of bowel in the mid abdomen. No obstruction is appreciated. There is some stool in the rectosigmoid. No free air. IMPRESSION: Nonspecific nonobstructive bowel gas pattern. Dictated by: Dictated on workstation # [id number]
[2019-07-01] MEDS ORDERED: NS IV 500 ML 500 ML IV ONE (21:25)
[2019-07-01 22:19] VITALS: BP 153/45
== END 2019-07-01 22:22 | disposition home or self-care (01) ==
LOC: EDUNIT# 19:34 → ER FS 19:36
DX: R10.84 Generalized abdominal pain (principal); R14.0 Abdominal distension (gaseous); I13.0 Hypertensive heart and chronic kidney disease with heart failure and stage 1 through stage 4 chronic kidney disease, or unspecified chronic kidney disease; N18.3 Chronic kidney disease, stage 3 (moderate); E03.9 Hypothyroidism, unspecified; Z99.81 Dependence on supplemental oxygen; Z88.8 Allergy status to other drugs, medicaments and biological substances; Z88.0 Allergy status to penicillin; Z79.82 Long term (current) use of aspirin; Z79.02 Long term (current) use of antithrombotics/antiplatelets; Z79.51 Long term (current) use of inhaled steroids; Z79.01 Long term (current) use of anticoagulants; Z95.5 Presence of coronary angioplasty implant and graft
CPT/HCPCS: 36415; 71046; 74018; 80053; 83880; 84484; 85007; 85027; 93005

== ENCOUNTER 2019-07-03 11:27 | Emergency (ER) | payer MEDICARE, OTHER ==
[~2019-07-03] VITALS: Ht 157 cm; Wt 86.4 kg
[2019-07-03] MEDS ORDERED: ONDANSETRON 4 MG/2 ML (SDV) Z0FRAN IVP ONE (12:00)
[2019-07-03] MEDS ORDERED: ONDANSETRON 4 MG/2 ML (SDV) Z0FRAN ONE (12:02)
--- NOTE | 2019-07-03 12:10 | ED GI ---
General Chief Complaint: Abdominal/GI Problems Stated Complaint: NAUSEA Nursing Triage Note: NAUSEA OFF AND ON. PUTTING FOOD IN HER MOUTH SEEMS TO GAG HER. PT WAS HERE LAST WEEK AND WAS ANXIOUS AND HAD A COUPLE OF PANIC ATTACKS WHILE IN ED. Sepsis Screen: No Definite Risk Source of Information: Patient, Family Exam Limitations: No Limitations History of Present Illness Date Seen by Provider: Jul 03, 2019 Time Seen by Provider: 11:50 Initial Comments Patient presents with her daughter and son-in-law with complaint of feeling nauseated and having dry heaves since yesterday afternoon at 4 p.m. Denies abdominal pain, shortness of air or chest pain. Denies fever or chills. Recent hospitalization last week with coronary catheterization and stent placement at [facility]. Patient started on Plavix and aspirin.... Also taking xarelto. Earlier in June was hospitalized @ [place] for 10 days. Lives w daughter and son-in-law. Getting weaker, although still able to get around w a walker she is requiring more care and assistance than usual. Allergies and Home Medications Allergies Coded Allergies: Penicillins (Verified Allergy, Unknown, 07/21/18) propoxyphene (Verified Allergy, Unknown, 07/21/18) Home Medications Albuterol Sulfate 1 Puff Puff, 2 PUFF INH Q6H PRN for SHORTNESS OF BREATH, (Reported) Amiodarone HCl 200 Mg Tablet, 200 MG PO BID, (Reported) Aspirin 81 Mg Tablet.dr, 81 MG PO DAILY Prescribed by: GEOFF THOMSON on 06/30/19 0939 Atorvastatin Calcium 40 Mg Tablet, 40 MG PO 1800, (Reported) LAST FILLED #90 7-3-19 Benzonatate 100 Mg Capsule, 100 MG PO TID PRN for COUGH, (Reported) Clopidogrel Bisulfate 75 Mg Tablet, 75 MG PO DAILY Prescribed by: GEOFF THOMSON on 06/30/19938 Digoxin 250 Mcg Tablet, 250 MCG PO DAILY, (Reported) Diltiazem HCl 60 Mg Tablet, 60 MG PO Q6H, (Reported) Fluticasone/Salmeterol 1 Each Blst.w.dev, 1 PUFF INH BID, (Reported) Furosemide 40 Mg Tablet, 40 MG PO DAILY, (Reported) Levothyroxine Sodium 25 Mcg Tablet, 25 MCG PO 0500, (Reported) Magnesium Oxide 400 Mg Tablet, 400 MG PO DAILY, (Reported) Meclizine HCl 25 Mg Tablet, 25 MG PO TID PRN for DIZZINESS, (Reported) Pantoprazole Sodium 40 Mg Granpkt.dr, 40 MG PO DAILY Prescribed by: GEOFF THOMSON on 06/30/19 0939 Potassium Chloride 20 Meq Tab.er.prt, 20 MEQ PO DAILY, (Reported) Rivaroxaban 20 Mg Tablet, 20 MG PO 1800, (Reported) Sennosides 8.6 Mg Tablet, 8.6 MG PO Q6H PRN for CONSTIPATION-5TH LINE, (Reported) Patient Home Medication List Home Medication List Reviewed: Yes Review of Systems Review of Systems Constitutional: see HPI; No diaphoresis, No dizziness, No fever; malaise; No weakness EENTM: No Symptoms Reported Respiratory: See HPI; Denies Cough, Denies Orthopnea, Denies Shortness of Air, Denies Wheezing Cardiovascular: Denies Chest Pain; Edema (chronic, no worse.); Denies Irregular Heart Rate, Denies Lightheadedness, Denies Palpitations, Denies Syncope Gastrointestinal: Denies Constipated (last BM this morning), Denies Diarrhea; Nausea, Poor Appetite; Denies Vomiting Genitourinary: No Symptoms Reported Musculoskeletal: no symptoms reported Skin: no symptoms reported; No pruritus, No rash Past Bbasevw-Fefylb-Mwtbpw Hx Past Med/Social Hx: Reviewed Nursing Past Med/Soc Hx Patient Social History Alcohol Use: Denies Use Recreational Drug Use: No 2nd Hand Smoke Exposure: No Recent Foreign Travel: No Contact w/Someone Who Travel: No Recent Infectious Disease Expo: No Recent Hopitalizations: Yes (DISCHARGED FROM [facility] 06/30/19) Physical Abuse: No Sexual Abuse: No Mistreated: No Fear: No Immunizations Up To Date Date of Pneumonia Vaccine: Nov 15, 2013 Date of Influenza Vaccine: Mar 07, 2019 Seasonal Allergies Seasonal Allergies: No Past Medical History Surgeries: Yes (STENT X 3) Coronary Stent Respiratory: Yes Pneumonia, Sleep Apnea Cardiac: Yes (Paroxysmal A Fib, CHF) Atrial Fibrillation, Chronic Edema/Swelling, Coronary Artery Disease, High Cholesterol, Hypertension Neurological: No Genitourinary: Yes (Stage 3 CKD) Gastrointestinal: No Musculoskeletal: No Endocrine: Yes (Dx "Prediabetes") Hypothyroidsim HEENT: No Cancer: No Psychosocial: No Integumentary: No Blood Disorders: No Family Medical History CAD Under 55 Years Old, CAD Over 55 Years Old, Diabetes, Stroke Physical Exam Vital Signs Vital Signs - First Documented 07/03/19 11:52 Temp 36.6 Pulse 74 Resp 18 B/P (MAP) 146/47 (80) Pulse Ox 96 O2 Delivery Room Air Capillary Refill : Less Than 3 Seconds Height/Weight/BMI Height: 5'4.00" Weight: 190lbs. 0.7oz. [id number]; 35.00 BMI Method:Stated General Appearance: WD/WN, no apparent distress HEENT: PERRL/EOMI, normal ENT inspection Neck: non-tender, full range of motion Respiratory: chest non-tender, lungs clear, normal breath sounds Cardiovascular: regular rate, rhythm, no edema, no gallop, no JVD Gastrointestinal: normal bowel sounds, non tender, soft Extremities: normal range of motion, non-tender, normal inspection, no calf tenderness Back: normal inspection, no CVA tenderness Neurologic/Psychiatric: no motor/sensory deficits, alert, oriented x 3 Skin: normal color, warm/dry Progress/Results/Core Measures Results/Orders Lab Results Laboratory Tests Test 07/03/19 12:04 Range/Units White Blood Count 10.2 4.3-11.0 10^3/uL Red Blood Count 4.05 L 4.35-5.85 10^6/uL Hemoglobin 12.3 11.5-16.0 G/DL Hematocrit 36 35-52 % Mean Corpuscular Volume 88 80-99 FL Mean Corpuscular Hemoglobin 30 25-34 PG Mean Corpuscular Hemoglobin Concent 34 32-36 G/DL Red Cell Distribution Width 13.9 10.0-14.5 % Platelet Count 277 130-400 10^3/uL Mean Platelet Volume 9.4 7.4-10.4 FL Neutrophils (%) (Auto) 81 H 42-75 % Lymphocytes (%) (Auto) 6 L 12-44 % Monocytes (%) (Auto) 10 0-12 % Eosinophils (%) (Auto) 3 0-10 % Basophils (%) (Auto) 0 0-10 % Neutrophils # (Auto) 8.3 H 1.8-7.8 X 10^3 Lymphocytes # (Auto) 0.6 L 1.0-4.0 X 10^3 Monocytes # (Auto) 1.0 0.0-1.0 X 10^3 Eosinophils # (Auto) 0.3 0.0-0.3 10^3/uL Basophils # (Auto) 0.0 0.0-0.1 10^3/uL Neutrophils % (Manual) 89 % Lymphocytes % (Manual) 6 % Monocytes % (Manual) 3 % Eosinophils % (Manual) 2 % Basophils % (Manual) 0 % Band Neutrophils 0 % Blood Morphology Comment NORMAL Prothrombin Time 22.9 H 12.2-14.7 SEC INR Comment 1.9 H 0.8-1.4 Sodium Level 134 L 135-145 MMOL/L Potassium Level 4.4 3.6-5.0 MMOL/L Chloride Level 95 L 98-107 MMOL/L Carbon Dioxide Level 23 21-32 MMOL/L Anion Gap 16 H 5-14 MMOL/L Blood Urea Nitrogen 25 H 7-18 MG/DL Creatinine 1.54 H 0.60-1.30 MG/DL Estimat Glomerular Filtration Rate 32 BUN/Creatinine Ratio 16 Glucose Level 128 H 70-105 MG/DL Calcium Level 9.0 8.5-10.1 MG/DL Corrected Calcium 9.5 8.5-10.1 MG/DL Magnesium Level 2.0 1.6-2.4 MG/DL Total Bilirubin 0.8 0.1-1.0 MG/DL Aspartate Amino Transf (AST/SGOT) 25 5-34 U/L Alanine Aminotransferase (ALT/SGPT) 27 0-55 U/L Alkaline Phosphatase 99 40-136 U/L Troponin I < 0.30 <0.30 NG/ML Pro-B-Type Natriuretic Peptide 7575.0 H <75.0 PG/ML Total Protein 6.8 6.4-8.2 GM/DL Albumin 3.4 3.2-4.5 GM/DL My Orders Orders - ROVENSTINE,MARVA L DO Ekg Tracing (07/03/19 11:57) Troponin I Fs (07/03/19 11:57) Urinalysis (07/03/19 11:57) Ed Iv/Invasive Line Start (07/03/19 11:57) Cbc With Automated Diff (07/03/19 11:57) Comprehensive Metabolic Panel (07/03/19 11:57) Probnp Fs (07/03/19 11:57) Protime With Inr (07/03/19 11:57) Lactic Acid Analyzer (07/03/19 11:57) Chest 1 View Ap/Pa Only (07/03/19 11:57) Ondansetron Injection (Zofran Injectio (07/03/19 12:00) Digoxin (07/03/19 12:07) Magnesium (07/03/19 12:08) Manual Differential (07/03/19 12:04) Ondansetron Injection (Zofran Injectio (07/03/19 12:02) Famotidine Injection (Pepcid Injection) (07/03/19 13:00) Antacid Suspension (Mylanta Suspension (07/03/19 13:00) Metoclopramide Injection (Reglan Injecti (07/03/19 13:22) Medications Given in ED Current Medications Medications Dose Ordered Sig/Ammy Route Start Time Stop Time Status Last Admin Dose Admin Al Hydrox/Mg Hydrox/Simethicone 30 ml ONCE ONCE PO 07/03/19 13:00 07/03/19 13:01 DC 07/03/19 13:29 30 ML Famotidine 20 mg ONCE ONCE IVP 07/03/19 13:00 07/03/19 13:01 DC 07/03/19 13:09 20 MG Ondansetron HCl 4 mg ONCE ONCE IVP 07/03/19 12:00 07/03/19 12:38 DC 07/03/19 12:16 4 MG Vital Signs/I&O 07/03/19 11:52 Temp 36.6 Pulse 74 Resp 18 B/P (MAP) 146/47 (80) Pulse Ox 96 O2 Delivery Room Air Blood Pressure Mean: 80 Progress Progress Note : Time: 13:30 Progress Note Patient w cont'd stomach upset w nausea. No significant relief p Zofran or Pepcid. Trial of Reglan w some relief and pt finally resting without moaning about her nausea. Normal labs and CXR with no significant abnormalities. Considering dyspepsia 2 to medication recently started by Cardiology, Plavix and aspirin. Discussed Rx for Reglan to be used prn Nausea (up to tid) before eating. Also to keep appointments scheduled this week w Cardio and to discuss possible side effects of medication. Initial ECG Impression Date: Jul 03, 2019 Initial ECG Impression Time: 12:10 Initial ECG Rate: 60 Initial ECG Rhythm: A Fib/Flutter Initial ECG Intervals: Normal Initial ECG Impression: Nonspecific Changes Departure Impression Primary Impression: Nausea and vomiting Qualified Codes: R11.2 - Nausea with vomiting, unspecified Additional Impression: Dyspepsia Disposition: 01 HOME, SELF-CARE Condition: Improved Departure-Patient Inst. Referrals: SELF,RASHAUN MCLEAN (PCP) Primary Care Physician BALDEV CORREA APRN (Family) Primary Care Physician Patient Instructions: Nausea and Vomiting, Adult (DC), Dyspepsia (DC) Scripts Metoclopramide HCl (Reglan) 5 Mg Tablet 5 MG PO TIDAC PRN for NAUSEA/VOMITING-1ST LINE, #20 TAB Prov: MARVA HARVEY DO 07/03/19 AMRVA HARVEY DO Jul 03, 2019 12:10
[2019-07-03 12:12] LABS: BASOPHILS % (AUTO) 0 % (0-10); EOSINOPHILS # (AUTO) 0.3 10^3/uL (0.0-0.3); EOSINOPHILS % (AUTO) 3 % (0-10); HEMATOCRIT 36 % (35-52); HEMOGLOBIN 12.3 G/DL (11.5-16.0); LYMPHOCYTES # (AUTO) 0.6 X 10^3 (1.0-4.0); LYMPHOCYTES % (AUTO) 6 % (12-44); MEAN CORPUSCULAR HEMOGLOBIN 30 PG (25-34); MEAN CORPUSCULAR HGB CONC 34 G/DL (32-36); MEAN CORPUSCULAR VOLUME 88 FL (80-99); MEAN PLATELET VOLUME 9.4 FL (7.4-10.4); MONOCYTES % (AUTO) 10 % (0-12); NEUTROPHILS # (AUTO) 8.3 X 10^3 (1.8-7.8); NEUTROPHILS % (AUTO) 81 % (42-75); PLATELET COUNT 277 10^3/uL (130-400); RED CELL DISTRIBUTION WIDTH 13.9 % (10.0-14.5); WHITE BLOOD COUNT 10.2 10^3/uL (4.3-11.0)
[2019-07-03 12:26] LABS: INR 1.9 (0.8-1.4); PROTHROMBIN TIME PATIENT 22.9 SEC (12.2-14.7)
--- NOTE | 2019-07-03 12:33 | Diagnostic Imaging Report ---
INDICATION: Nausea. COMPARISON: 07/01/2019. TECHNIQUE: A single radiograph of the chest is dated July 03, 2019. FINDINGS: The cardiac silhouette is mildly enlarged although stable. No significant central pulmonary vascular congestion. Background chronic interstitial markings are again identified. Low lung volumes. No new focal pulmonary opacity. No pleural effusion. No pneumothorax. No acute osseous abnormality. IMPRESSION: Low lung volumes with stable background interstitial lung changes without superimposed acute cardiopulmonary abnormality. Dictated by: Dictated on workstation # [id number]
[2019-07-03 12:40] LABS: BAND NEUTROPHILS 0 %; BASOPHILS % (MANUAL) 0 %; EOSINOPHILS % (MANUAL) 2 %; LYMPHOCYTES % (MANUAL) 6 %; MONOCYTES % (MANUAL) 3 %; NEUTROPHILS % (MANUAL) 89 %; RBC MORPH NORMAL
[2019-07-03 12:42] LABS: BUN/CREATININE RATIO 16; CARBON DIOXIDE 23 MMOL/L (21-32); CHLORIDE 95 MMOL/L (98-107); CREATININE SERUM 1.54 MG/DL (0.60-1.30); GFR ESTIMATED 32; GLUCOSE 128 MG/DL (70-105); POTASSIUM 4.4 MMOL/L (3.6-5.0); SODIUM 134 MMOL/L (135-145)
[2019-07-03 12:43] LABS: ALANINE AMINOTRANSFERASE 27 U/L (0-55); ALBUMIN 3.4 GM/DL (3.2-4.5); ALKALINE PHOSPHATASE 99 U/L (40-136); BILIRUBIN,TOTAL 0.8 MG/DL (0.1-1.0); TOTAL PROTEIN 6.8 GM/DL (6.4-8.2)
[2019-07-03] MEDS ORDERED: ANTACID SUSP 30 ML UDC (MYLANTA) PO ONE (13:00)
[2019-07-03] MEDS ORDERED: FAMOTIDINE 20MG/2ML IV (PEPCID) IVP ONE (13:00)
[2019-07-03] MEDS ORDERED: METOCLOPRAMIDE INJ 10 MG/2 ML (REGLAN) ONE (13:22)
[2019-07-03] MEDS ORDERED: METO5TAB75 PO (13:55)
[2019-07-03 14:20] VITALS: BP 130/58
== END 2019-07-03 14:20 | disposition home or self-care (01) ==
LOC: EDUNIT# 11:27 → ER FS 11:28
DX: R11.2 Nausea with vomiting, unspecified (principal); R10.13 Epigastric pain; I13.0 Hypertensive heart and chronic kidney disease with heart failure and stage 1 through stage 4 chronic kidney disease, or unspecified chronic kidney disease; I50.9 Heart failure, unspecified; N18.3 Chronic kidney disease, stage 3 (moderate); I25.10 Atherosclerotic heart disease of native coronary artery without angina pectoris; E78.00 Pure hypercholesterolemia, unspecified; I48.0 Paroxysmal atrial fibrillation; E03.9 Hypothyroidism, unspecified; Z95.5 Presence of coronary angioplasty implant and graft; Z79.82 Long term (current) use of aspirin; Z79.01 Long term (current) use of anticoagulants; Z79.02 Long term (current) use of antithrombotics/antiplatelets; Z88.0 Allergy status to penicillin; Z88.8 Allergy status to other drugs, medicaments and biological substances; Z79.51 Long term (current) use of inhaled steroids
CPT/HCPCS: 36415; 71045; 80053; 80162; 83735; 83880; 84484; 85007; 85027; 85610; 93005

== ENCOUNTER 2019-07-05 10:35 | Observation (INO) | payer MEDICARE, OTHER ==
[~2019-07-05] VITALS: Ht 157 cm; Wt 91.3 kg
[2019-07-05] VITALS (9 sets, daily range): BP systolic 114–162; BP diastolic 36–75
[~2019-07-05 10:35] MED LIST changes: +METO5TAB75 PO
--- NOTE | 2019-07-05 10:50 | NUR ---
Pt arrival to ED assisted into ER with wheelchair per dgt. Dgt called by her that the pt had these c/o's again after trying to get her to eat breakfast. Pt stated she was very nauseated and never had emesis but ate 2 spoonfuls of Cheerios and a part of banana. Pt seen in ER Jun 10, , , , and today.
--- NOTE | 2019-07-05 11:00 | NUR ---
Dgt states they stopped her Digoxin after the result came back after the 27th ER visit that she was Dig Toxic 2.7. Dgt states she just keeps telling us she is SOB and nauseated. No emesis is reported. Pt appears very anxious and hands are tremoring. Pt has been sent home 06/30 on Reglan prn no more than TID. Family having been using AC meals.
[2019-07-05 11:02] LABS: BASOPHILS # (AUTO) 0.1 10^3/uL (0.0-0.1); BASOPHILS % (AUTO) 1 % (0-10); EOSINOPHILS # (AUTO) 0.3 10^3/uL (0.0-0.3); EOSINOPHILS % (AUTO) 3 % (0-10); HEMATOCRIT 36 % (35-52); HEMOGLOBIN 12.1 G/DL (11.5-16.0); LYMPHOCYTES # (AUTO) 0.6 X 10^3 (1.0-4.0); LYMPHOCYTES % (AUTO) 6 % (12-44); MEAN CORPUSCULAR HEMOGLOBIN 30 PG (25-34); MEAN CORPUSCULAR HGB CONC 34 G/DL (32-36); MEAN CORPUSCULAR VOLUME 88 FL (80-99); MEAN PLATELET VOLUME 9.5 FL (7.4-10.4); MONOCYTES # (AUTO) 0.8 X 10^3 (0.0-1.0); MONOCYTES % (AUTO) 8 % (0-12); NEUTROPHILS # (AUTO) 8.4 X 10^3 (1.8-7.8); NEUTROPHILS % (AUTO) 82 % (42-75); PLATELET COUNT 280 10^3/uL (130-400); RED CELL DISTRIBUTION WIDTH 13.6 % (10.0-14.5); WHITE BLOOD COUNT 10.2 10^3/uL (4.3-11.0)
--- NOTE | 2019-07-05 11:14 | Diagnostic Imaging Report ---
INDICATION: Shortness of breath. TIME OF EXAM: 11:03 AM Correlation is made with prior chest from 07/03/2019. FINDINGS: The heart size is stable. Lungs are clear. No infiltrates are seen. There is no effusion or pneumothorax. IMPRESSION: No acute cardiopulmonary process is detected. Dictated by: Dictated on workstation # [id number]
[2019-07-05 11:19] LABS: ALANINE AMINOTRANSFERASE 37 U/L (0-55); ALKALINE PHOSPHATASE 117 U/L (40-136); BILIRUBIN,TOTAL 0.7 MG/DL (0.1-1.0); BUN/CREATININE RATIO 16; CALCIUM 9.1 MG/DL (8.5-10.1); CARBON DIOXIDE 26 MMOL/L (21-32); CHLORIDE 99 MMOL/L (98-107); FIBRIN DEGRADATION PRODUCTS 0.44 UG/ML (0.00-0.49); GFR ESTIMATED 27; GLUCOSE 136 MG/DL (70-105); MAGNESIUM 2.3 MG/DL (1.6-2.4); POTASSIUM 4.1 MMOL/L (3.6-5.0); PROTHROMBIN TIME PATIENT 23.8 SEC (12.2-14.7); SODIUM 138 MMOL/L (135-145)
[2019-07-05 11:20] LABS: ALBUMIN 3.6 GM/DL (3.2-4.5); LIPASE 41 U/L (8-78); TOTAL PROTEIN 6.7 GM/DL (6.4-8.2)
[2019-07-05] MEDS ORDERED: ONDANSETRON 4 MG/2 ML (SDV) Z0FRAN IVP ONE (11:45)
[2019-07-05] MEDS ORDERED: diphenhydrAMINE 50 MG/ML INJ (BENADRYL) IVP ONE (11:45)
[2019-07-05] MEDS ORDERED: LORazepam INJ 2 MG/ML (ATIVAN) VIAL IVP ONE (11:45)
--- NOTE | 2019-07-05 12:00 | NUR ---
Dr Garrett spoke with Dr Claire, plan admit.
[2019-07-05 12:09] LABS: BAND NEUTROPHILS 2 %; BASOPHILS % (MANUAL) 0 %; EOSINOPHILS % (MANUAL) 2 %; LYMPHOCYTES % (MANUAL) 10 %; MONOCYTES % (MANUAL) 8 %; NEUTROPHILS % (MANUAL) 78 %
[2019-07-05 12:10] LABS: RBC MORPH NORMAL
--- NOTE | 2019-07-05 12:24 | Diagnostic Imaging Report ---
PROCEDURE: CT head without contrast. TECHNIQUE: Multiple contiguous axial images were obtained through the brain without the use of intravenous contrast. Auto Exposure Controls were utilized during the CT exam to meet ALARA standards for radiation dose reduction. All CT scans use one or more of the following dose optimizing techniques: automated exposure control, MA and/or KvP adjustment based on patient size and exam type or iterative reconstruction. INDICATION: Nausea, pain. COMPARISON: None available. FINDINGS: No hyperdense hemorrhage or concerning space-occupying mass. 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 Global atrophy is present. No hydrocephalus. Periventricular white matter hypoattenuation is most compatible with chronic microvascular ischemic disease. No acute or concerning calvarial abnormality. Paranasal sinuses and mastoid air cells are clear. Orbits are unremarkable. IMPRESSION: 1. No acute intracranial process by CT. 2. Incidental note of subcentimeter calcified meningioma in the high left frontal region. This has no mass effect on the underlying brain parenchyma. 3. Global atrophy with chronic microvascular ischemic disease in the deep white matter. Dictated by: Dictated on workstation # [id number]
--- NOTE | 2019-07-05 12:27 | ED General ---
General Chief Complaint: Abdominal/GI Problems Stated Complaint: ABD PAIN; NAUSEA; SOB Nursing Triage Note: Pt presents to ER, sent from [facility] provider, for repeat c/o upper epigastric pain and nausea feeling without emesis. Pt reported her symptoms to son-in-law after breakfast then states it started last night. Pt was ED visit for same Jul 03 but was Dig toxic. Pt has been seen in [place] ED Jun 10, , , and also. Nursing Sepsis Screen: No Definite Risk History of Present Illness Date Seen by Provider: Jul 05, 2019 Time Seen by Provider: 12:24 Initial Comments Patient presenting to emergency department for evaluation of shortness of breath chest and abdominal squeezing sensation nausea and generally not feeling well. Patient has had a lot of happened over the past week as she had a stent placed by Dr. Reyez one week ago and was released on the and then came back to this emergency department on the and was cleared and then came back 2 days later on the and was found to have some worsening renal insufficiency and elevated dig level. She stopped the digoxin however his continued all her other medications and Reglan was added to help with her nausea. She reportedly ate well and was doing well yesterday but today started feeling poorly again. She went to go see her primary provider the nurse practitioner at [facility] and she felt that she looked to poorly to be evaluated there and brought the patient here. Patient is lying in bed shaking her head back and forth and is moaning and I asked her why she is moaning and she says she feels nausea and tightness in her chest. She says she wants to feel better but continues to feel poorly. I asked her if she is anxious and she denies however the daughter feels that there may be an anxiety component. She appears to be in no obvious distress with normal vital signs. Allergies and Home Medications Allergies Coded Allergies: Penicillins (Verified Allergy, Unknown, 07/21/18) propoxyphene (Verified Allergy, Unknown, 07/21/18) Home Medications Albuterol Sulfate 1 Puff Puff, 2 PUFF INH Q6H PRN for SHORTNESS OF BREATH, (Reported) Amiodarone HCl 200 Mg Tablet, 200 MG PO BID, (Reported) Aspirin 81 Mg Tablet., 81 MG PO DAILY Prescribed by: GEOFF REYEZ on 06/30/19 0939 Atorvastatin Calcium 40 Mg Tablet, 40 MG PO 1800, (Reported) LAST FILLED #90 7-3-19 Benzonatate 100 Mg Capsule, 100 MG PO TID PRN for COUGH, (Reported) Clopidogrel Bisulfate 75 Mg Tablet, 75 MG PO DAILY Prescribed by: GEOFF REYEZ on 06/30/19 0939 Digoxin 250 Mcg Tablet, 250 MCG PO DAILY, (Reported) Diltiazem HCl 60 Mg Tablet, 60 MG PO Q6H, (Reported) Fluticasone/Salmeterol 1 Each Blst.w.dev, 1 PUFF INH BID, (Reported) Furosemide 40 Mg Tablet, 40 MG PO DAILY, (Reported) Levothyroxine Sodium 25 Mcg Tablet, 25 MCG PO 0500, (Reported) Magnesium Oxide 400 Mg Tablet, 400 MG PO DAILY, (Reported) Meclizine HCl 25 Mg Tablet, 25 MG PO TID PRN for DIZZINESS, (Reported) Metoclopramide HCl 5 Mg Tablet, 5 MG PO TIDAC PRN for NAUSEA/VOMITING-1ST LINE Prescribed by: MARVA HARVEY on 07/03/19 1355 Pantoprazole Sodium 40 Mg Granpkt.dr, 40 MG PO DAILY Prescribed by: GEOFF REYEZ on 06/30/19 0939 Potassium Chloride 20 Meq Tab.er.prt, 20 MEQ PO DAILY, (Reported) Rivaroxaban 20 Mg Tablet, 20 MG PO 1800, (Reported) Sennosides 8.6 Mg Tablet, 8.6 MG PO Q6H PRN for CONSTIPATION-5TH LINE, (Reported) Patient Home Medication List Home Medication List Reviewed: Yes Review of Systems Review of Systems Constitutional: malaise, weakness EENTM: no symptoms reported Respiratory: short of breath Cardiovascular: chest pain Gastrointestinal: abdominal pain, nausea Genitourinary: no symptoms reported Musculoskeletal: no symptoms reported Skin: no symptoms reported Psychiatric/Neurological: No Symptoms Reported All Other Systems Reviewed Negative Unless Noted: Yes Past Rdvsyyg-Owqenk-Mdihtb Hx Patient Social History Alcohol Use: Denies Use Recreational Drug Use: No Smoking Status: Never a Smoker 2nd Hand Smoke Exposure: No Recent Foreign Travel: No Contact w/Someone Who Travel: No Recent Infectious Disease Expo: No Recent Hopitalizations: Yes (DISCHARGED FROM [facility] 06/30/19, ER VISITS 25, 27, 29) Physical Abuse: No Sexual Abuse: No Mistreated: No Fear: No Immunizations Up To Date Date of Pneumonia Vaccine: Nov 15, 2013 Date of Influenza Vaccine: Mar 07, 2019 Seasonal Allergies Seasonal Allergies: No Past Medical History Surgeries: Yes (STENT X 3) Coronary Stent Respiratory: Yes Pneumonia, Sleep Apnea Cardiac: Yes (Paroxysmal A Fib, CHF) Atrial Fibrillation, Chronic Edema/Swelling, Coronary Artery Disease, High Cholesterol, Hypertension Neurological: No Genitourinary: Yes (Stage 3 CKD) Gastrointestinal: No Musculoskeletal: No Endocrine: Yes (Dx "Prediabetes") Hypothyroidsim HEENT: No Cancer: No Psychosocial: No Integumentary: No Blood Disorders: No Family Medical History CAD Under 55 Years Old, CAD Over 55 Years Old, Diabetes, Stroke Physical Exam Vital Signs Vital Signs - First Documented 07/05/19 10:50 Temp 36.7 Pulse 78 Resp 18 B/P (MAP) 151/101 (118) Pulse Ox 96 O2 Delivery Room Air Capillary Refill : Less Than 3 Seconds Height, Weight, BMI Height: 5'4.00" Weight: 190lbs. 0.7oz. 86.118926ui; 35.00 BMI Method:Stated General Appearance: No Apparent Distress, WD/WN HEENT: PERRL/EOMI Neck: Supple Respiratory: Lungs Clear, No Respiratory Distress Cardiovascular: Irregularly Irregular Gastrointestinal: Non Tender, Soft Back: Normal Inspection Extremity: Normal Capillary Refill Neurologic/Psychiatric: Alert, Oriented x3 Skin: Warm/Dry Progress/Results/Core Measures Suspected Sepsis Recent Fever Within 48 Hours: No Infection Criteria Present: None New/Unexplained Altered Menta: No Sepsis Screen: No Definite Risk SIRS Temperature: Pulse: 78 Respiratory Rate: 18 Laboratory Tests 07/05/19 10:50: White Blood Count 10.2 Blood Pressure 151 /101 Mean: 118 Laboratory Tests 07/05/19 10:50: Creatinine 1.80H, INR Comment 2.0H, Platelet Count 280, Total Bilirubin 0.7 Results/Orders Lab Results Laboratory Tests Test 07/05/19 10:50 Range/Units White Blood Count 10.2 4.3-11.0 10^3/uL Red Blood Count 4.07 L 4.35-5.85 10^6/uL Hemoglobin 12.1 11.5-16.0 G/DL Hematocrit 36 35-52 % Mean Corpuscular Volume 88 80-99 FL Mean Corpuscular Hemoglobin 30 25-34 PG Mean Corpuscular Hemoglobin Concent 34 32-36 G/DL Red Cell Distribution Width 13.6 10.0-14.5 % Platelet Count 280 130-400 10^3/uL Mean Platelet Volume 9.5 7.4-10.4 FL Neutrophils (%) (Auto) 82 H 42-75 % Lymphocytes (%) (Auto) 6 L 12-44 % Monocytes (%) (Auto) 8 0-12 % Eosinophils (%) (Auto) 3 0-10 % Basophils (%) (Auto) 1 0-10 % Neutrophils # (Auto) 8.4 H 1.8-7.8 X 10^3 Lymphocytes # (Auto) 0.6 L 1.0-4.0 X 10^3 Monocytes # (Auto) 0.8 0.0-1.0 X 10^3 Eosinophils # (Auto) 0.3 0.0-0.3 10^3/uL Basophils # (Auto) 0.1 0.0-0.1 10^3/uL Neutrophils % (Manual) 78 % Lymphocytes % (Manual) 10 % Monocytes % (Manual) 8 % Eosinophils % (Manual) 2 % Basophils % (Manual) 0 % Band Neutrophils 2 % Blood Morphology Comment NORMAL Prothrombin Time 23.8 H 12.2-14.7 SEC INR Comment 2.0 H 0.8-1.4 Activated Partial Thromboplast Time 33 24-35 SEC D-Dimer 0.44 0.00-0.49 UG/ML Sodium Level 138 135-145 MMOL/L Potassium Level 4.1 3.6-5.0 MMOL/L Chloride Level 99 98-107 MMOL/L Carbon Dioxide Level 26 21-32 MMOL/L Anion Gap 13 5-14 MMOL/L Blood Urea Nitrogen 29 H 7-18 MG/DL Creatinine 1.80 H 0.60-1.30 MG/DL Estimat Glomerular Filtration Rate 27 BUN/Creatinine Ratio 16 Glucose Level 136 H 70-105 MG/DL Calcium Level 9.1 8.5-10.1 MG/DL Corrected Calcium 9.4 8.5-10.1 MG/DL Magnesium Level 2.3 1.6-2.4 MG/DL Total Bilirubin 0.7 0.1-1.0 MG/DL Aspartate Amino Transf (AST/SGOT) 27 5-34 U/L Alanine Aminotransferase (ALT/SGPT) 37 0-55 U/L Alkaline Phosphatase 117 40-136 U/L Troponin I < 0.30 <0.30 NG/ML Pro-B-Type Natriuretic Peptide 8717.0 H <75.0 PG/ML Total Protein 6.7 6.4-8.2 GM/DL Albumin 3.6 3.2-4.5 GM/DL Lipase 41 8-78 U/L My Orders Orders - MILA JACOB DO Digoxin (07/05/19 10:42) Cbc With Automated Diff (07/05/19 10:42) Comprehensive Metabolic Panel (07/05/19 10:42) Chest 1 View Ap/Pa Only (07/05/19 10:42) Lipase (07/05/19 10:42) Magnesium (07/05/19 10:42) Partial Thromboplastin Time (07/05/19 10:42) Probnp Fs (07/05/19 10:42) Protime With Inr (07/05/19 10:42) Troponin I Fs (07/05/19 10:42) Ua Culture If Indicated (07/05/19 10:42) Ekg Tracing (07/05/19 10:42) Fibrin Degradation Products (07/05/19 10:42) Manual Differential (07/05/19 10:50) Ct Abdomen/Pelvis Wo (07/05/19 11:28) Diphenhydramine Injection (Benadryl Inje (07/05/19 11:45) Ondansetron Injection (Zofran Injectio (07/05/19 11:45) Lorazepam Injection (Ativan Injection) (07/05/19 11:45) Ct Head Wo (07/05/19 11:43) Medications Given in ED Current Medications Medications Dose Ordered Sig/Ammy Route Start Time Stop Time Status Last Admin Dose Admin Diphenhydramine HCl 25 mg ONCE ONCE IVP 07/05/19 11:45 07/05/19 11:46 DC 07/05/19 11:58 25 MG Lorazepam 0.5 mg ONCE ONCE IVP 07/05/19 11:45 07/05/19 11:46 DC 07/05/19 11:58 0.5 MG Ondansetron HCl 4 mg ONCE ONCE IVP 07/05/19 11:45 07/05/19 11:46 DC 07/05/19 11:58 4 MG Vital Signs/I&O 07/05/19 10:50 Temp 36.7 Pulse 78 Resp 18 B/P (MAP) 151/101 (118) Pulse Ox 96 O2 Delivery Room Air Capillary Refill : Less Than 3 Seconds Blood Pressure Mean: 118 Progress Note : Progress Note This is patient's third ED visit in 5 days and she could have a multitude of things going on including GI etiology neurologic etiology, dystonia, digoxin toxicity, cardiac ischemia. Her workup is rather unremarkable here except for mildly increased BUN/creatinine BNP. I spoke to Dr. Claire and she agreed to have the patient admitted. Patient has a normal head CT however her CTM and pelvis shows possible mild stranding around the duodenum which could be causing her to have duodenitis. They said that there may be an opacity in the right lung base but I do not think she warrants antibiotics at this time given there is no cough fever or leukocytosis. I did speak to Dr. Reyez and he agreed to consult on patient but no immediate orders at this time. Patient transferred to [facility] in stable condition. Departure Impression Primary Impression: Abdominal pain Additional Impressions: Chest pain Dyspnea Renal insufficiency Elevated brain natriuretic peptide (BNP) level Duodenitis Nausea alone Disposition: ADMITTED INPATIENT Condition: Stable Transfer Transfer Reason: Exceeds level of care Time Spoke to Accepting Phy: 12:00 Transfer Facility: [facility] Method of Transfer: EMS Departure-Patient Inst. Referrals: SELF,RASHAUN MCLEAN (PCP) Primary Care Physician BALDEV CORREA APRN (Family) Primary Care Physician MILA JACOB DO Jul 05, 2019 12:27
--- NOTE | 2019-07-05 12:27 | Diagnostic Imaging Report ---
CT ABDOMEN/PELVIS WO TECHNIQUE: Unenhanced CT imaging of the abdomen and pelvis was performed. 2-D reformats are created and submitted for interpretation. Automatic exposure controls were utilized to optimize patient dose. All CT scans use one or more of the following dose optimizing techniques: automated exposure control, MA and/or KvP adjustment based on patient size and exam type or iterative reconstruction. INDICATION: Epigastric pain. COMPARISON: None available. FINDINGS: Evaluation of the abdominal viscera is mildly limited without contrast. Lower chest: Reticular and nodular opacities are present in the medial aspect of the right lung base. There is also a small amount of bandlike atelectasis within the posterior basilar segments of the right lower lobe. No pericardial or pleural effusion. Peritoneum: No free intraperitoneal air or fluid. Liver and biliary system: Unenhanced liver is normal. The gallbladder is normal. No biliary duct dilation. Spleen and Pancreas: Spleen is normal. Unenhanced pancreas is grossly normal. Adrenals: Normal. tract: Atrophic left kidney is present which may be due to chronic vascular injury. Right kidney is normal in size measuring 7 cm in length. No renal or ureteral calculi on the right side. Urinary bladder is moderately distended without wall thickening. Atrophic uterus and ovaries are age-appropriate. GI tract: Stomach is decompressed which limits assessment for wall thickening. There are no features of perforated gastric ulcer. There is suggestion of minimal stranding around the second portion of duodenum which could represent duodenitis. No bowel obstruction. No pericolonic inflammatory changes. Descending and sigmoid colon diverticulosis without diverticulitis. Normal appendix. Vasculature and Lymph nodes: Normal caliber aorta. No abdominal or pelvic lymphadenopathy. Musculoskeletal: No concerning osseous lesion. IMPRESSION: 1. Minimal fat stranding around the second portion of duodenum may represent duodenitis. No features of perforated duodenal or gastric ulcer. 2. Right basilar pulmonary opacities could be due to pneumonia or aspiration in the acute setting. Alternatively, this could represent a small amount of scar, although comparison is not available to determine the chronicity. Dictated by: Dictated on workstation # [id number]
[2019-07-05 12:48] LABS: BACTERIA,URINE FEW /HPF; BILIRUBIN,URINE NEGATIVE (NEGATIVE); CLARITY,URINE CLEAR; COLOR,URINE YELLOW; GLUCOSE, URINE (UA) NEGATIVE (NEGATIVE); KETONES,URINE NEGATIVE (NEGATIVE); LEUKOCYTE ESTERASE ,URINE TRACE (NEGATIVE); NITRITE,URINE NEGATIVE (NEGATIVE); PROTEIN,URINE NEGATIVE (NEGATIVE); RBC,URINE RARE /HPF
--- NOTE | 2019-07-05 13:00 | NUR ---
Still pending bed placement as [facility] as they are very busy and will have some rooms available soon.
--- NOTE | 2019-07-05 14:00 | NUR ---
Pt resting with eyes closed. Dgt leaving for brief while to go get her work desk organized and then will return.
--- NOTE | 2019-07-05 15:09 | NUR ---
[facility] ETA 30 minutes
--- NOTE | 2019-07-05 15:14 | NUR ---
Report called to [place] [facility]
--- NOTE | 2019-07-05 15:50 | NUR ---
[facility] )[facility]S EXTRA crew here to get report and transport patient
--- NOTE | 2019-07-05 16:05 | NUR ---
[facility]
--- NOTE | 2019-07-05 16:40 | NUR ---
LOU WOODRUFF admitted to room 420-1, with an admitting diagnosis of SOB, NAUSEA, RENAL INSUFFICIENCY, FLUID OVERLOAD, on 07/05/19 from [facility] via EMS, accompanied by EMS STAFF AND FAMILY. LOU WOODRUFF introduced to surroundings, call light, bed controls, phone, TV, temperature control, lights, meal times, smoking policy, visitor policy, side rail policy, bathrooms and showers. Patient Rights given to patient in the handbook. LOU WOODRUFF verbalizes understanding that [facility] is not responsible for the loss or damage to any personal effects or valuables that are kept in the patients possession during their hospitalization.
[2019-07-05] MEDS ORDERED: CATHETER FLUSH 10 ML SYR IV PRN (17:00)
[2019-07-05] MEDS ORDERED: SENNOSIDES 8.6 MG (SENOKOT) TAB PO PRN (17:00)
[2019-07-05] MEDS ORDERED: DOCUSATE SODIUM 100 MG (COLACE) CAP PO PRN (17:00)
[2019-07-05] MEDS ORDERED: SENNA W/DOCUSATE (SENOKOT S) TABLET PO PRN (17:00)
[2019-07-05] MEDS ORDERED: ACETAMINOPHEN 500 MG TAB (TYLENOL) PO PRN (17:00)
[2019-07-05] MEDS ORDERED: BENZONATATE 100 MG (TESSALON) CAPSULE PO PRN (17:00)
[2019-07-05] MEDS ORDERED: RT-ALBUTEROL SULF 2.5 MG/3 ML PRE-MIX VIAL INH PRN ×2 (17:00→17:30)
[2019-07-05] MEDS ORDERED: CALCIUM CARBONATE 500 MG (TUMS) TAB.CHEW PO PRN (17:00)
[2019-07-05] MEDS ORDERED: HYDROcodone/APAP 5 MG/325 MG (LORTAB) TAB PO PRN (17:00)
[2019-07-05] MEDS ORDERED: POLYETHYLENE GLYCOL 17 GM (MIRALAX) PACK PO PRN (17:00)
[2019-07-05] MEDS ORDERED: MECLIZINE 25 MG (ANTIVERT) TAB PO PRN (17:00)
[2019-07-05] MEDS ORDERED: LOPERAMIDE 2 MG (IMODIUM) TABLET PO PRN (17:00)
--- NOTE | 2019-07-05 17:03 | History & Physical-Hospitalist ---
History of Present Illness HPI/Chief Complaint CC: Chest pain with nausea and weakness HPI: This is an 83yoWF clinic patient of SARA Cantu with Dr Ojeda who p resented to the ER after assessed by her PCP and due to declined status she wassent for full evaluation. I did reviewed all of [facility] records listed below after daughter told me she was at [facility] for 2 weeks then DC then admitted to [facility] and underwent stent placement but then DC and became quite declined and had 2 ER visits for non-specific complaints. Dr Reyez has been consulted who placed the stent last week and will evaluate from the cardiac standpoint. I assessed the patient to be quite declined and appears to be declining towards complete debility and considering the age is 83yo it is quite possible this is the rapid spiral of her health she had previously so will do everything we can to help her reverse the direction she is going in her decline. DC note from [facility]: Michaela Hinton a 83 y.o.femalewho was admitted to [facility] on 06/10/2019for evaluation of A. fib with RVR, acute on chronic diastolic heart failure and acute respiratory failure with hypoxia. She was also noted to have LILO initially. At the time of admission, she was diuresed and started on Cardizem drip and then transferred to TCU/ICU. During the admission metoprolol was discontinued due to QT prolongation. As she was transitioned off Cardizem drip, she was started on amiodarone and oral Cardizem for better heart rate control. She progressed well during the admission and we received assistance from cardiology during it. She was then discharged on 06/21 and was doing well. Sotalol and Micardis was discontinued by cardiology. She was started on amiodarone, digoxin and diltiazem. On the day of discharge, she was complaining of cough. Chest x-ray negative. On physical exam she had minimal expiratory wheezing. No history of COPD or smoking. She was given a prescription for albuterol and Advair. For cough she was given a prescription of Tessalon Perles and Medrol Dosepak. At the time of discharge she was doing well, at her baseline mentation, had no cardiopulmonary symptoms except slight cough and was ambulating at baseline. She was discharged with home health. She was recommended to follow-up with PCP, cardiology and nephrology clinic in 7 to 10 days and repeat CBC and CMP to monitor any abnormalities of present at the time of discharge. All the questions were answered to her and her family satisfaction. They were extremely pleased with the care. She was also discharged with a 4 leg walker. Progress note from [facility]: 1. Acute on chronic diastolic heart failure: 2. Acute respiratory failure with hypoxia: a. Echocardiogram remarkable for moderate concentric left ventricular hypertrophy with moderately dilated left atrium. EF 69%. proBNP 5761 on ad mission. b. No history of asthma or COPD. Patient with a lot of wheezing. On 2 L nasal cannula oxygen. Will need outpatient follow-up with pulmonology for PFT. c. Start Lasix 20 mg daily. Continue nebulizer treatment. 3. Atrial fibrillation with RVR: Narciso vas5.improved heart rate. Continue digoxin, amiodarone, and diltiazem. Continue Xarelto. Cardiology on board. 4. Coronary artery disease: Status post PTCA with stent to the RCA. Stress test this admission was unremarkable. Continue Lipitor 5. Hypertension:Controlled with Cardizem. Other antihypertensive held given borderline blood pressures. 6. Chronic kidney disease: Creatinine around 1.36 in June of last year. Creatinine has remained stable .Avoid nephrotoxic agents. 7. Hypothyroidism: Continue Synthroid 8. Obesity:Body mass index is 36.73 kg/m.Due to calorie excess. Lifestyle modification with diet. Source: patient Exam Limitations: no limitations Date Seen 07/05/19 Time Seen by a Provider: 17:00 Attending Physician Jazmín Gasca DO PCP Self,Kenji MCLEAN Referring Physician Date of Admission Jul 05, 2019 at 14:56 Home Medications & Allergies Home Medications Reviewed patient Home Medication Reconciliation performed by pharmacy medication reconciliations microbiology lab technician and/or nursing. Patients Allergies have been reviewed. Allergies Allergies Coded Allergies Penicillins (Verified Allergy, Unknown, 07/21/18) propoxyphene (Verified Allergy, Unknown, 07/21/18) Past Pdzmiey-Dkzpkb-Fffkvh Hx Past Med/Social Hx: Reviewed Nursing Past Med/Soc Hx, Reviewed and Corrections made Patient Social History Marrital Status: single Employed/Student: retired Alcohol Use: Denies Use Recreational Drug Use: No Smoking Status: Never a Smoker 2nd Hand Smoke Exposure: No Recent Foreign Travel: No Contact w/other who traveled: No Recent Hopitalizations: Yes (DISCHARGED FROM [facility] 06/[facility], ER VISITS 25, 27, 29) Recent Infectious Disease Expo: No Immunizations Up To Date Date of Pneumonia Vaccine: Nov 15, 2013 Date of Influenza Vaccine: Mar 07, 2019 Seasonal Allergies Seasonal Allergies: No Past Medical History Surgeries: Coronary Stent Cardiac: Atrial Fibrillation, Chronic Edema/Swelling, Coronary Artery Disease, High Cholesterol, Hypertension Endocrine: Hypothyroidsim History of Blood Disorders: No Family History CAD Under 55 Years Old, CAD Over 55 Years Old, Diabetes, Stroke Review of Systems Constitutional: see HPI, dizziness, malaise, weakness Gastrointestinal: nausea, vomiting Psychiatric/Neurological: Weakness Physical Exam Physical Exam Vital Signs Vital Signs - First Documented 07/05/19 07/05/19 10:50 17:12 Temp 36.7 Pulse 78 Resp 18 B/P (MAP) 151/101 (118) Pulse Ox 96 O2 Delivery Room Air FiO2 21 Capillary Refill : Less Than 3 Seconds Height, Weight, BMI Height: 5'4.00" Weight: 190lbs. 0.7oz. 86.916259tn; 35.00 BMI Method:Stated General Appearance: Anxious, Chronically ill, Mild Distress Eyes: Right Eye Normal Inspection, Right Eye PERRL HEENT: PERRL/EOMI, Normal ENT Inspection, Pharynx Normal, Moist Mucous Membranes Neck: Full Range of Motion, Normal Inspection, Non Tender Respiratory: Chest Non Tender, Lungs Clear, Normal Breath Sounds, No Accessory Muscle Use, No Respiratory Distress Cardiovascular: No Edema, No Gallop, No JVD, No Murmur, Normal Peripheral Pulses, Irregularly Irregular Gastrointestinal: Normal Bowel Sounds, No Organomegaly, No Pulsatile Mass, Non Tender, Soft Back: Normal Inspection, No CVA Tenderness, No Vertebral Tenderness Extremity: Normal Capillary Refill, Normal Inspection, Normal Range of Motion, Non Tender, No Calf Tenderness, No Pedal Edema Neurologic/Psychiatric: Alert, Oriented x3, No Motor/Sensory Deficits, Normal Mood/Affect, art museum aide II-XII Norm as Tested, Disoriented Skin: Normal Color, Warm/Dry Lymphatic: No Adenopathy Results Results/Procedures Labs Laboratory Tests 07/05/19 10:50 Patient resulted labs reviewed. Assessment/Plan Admission Diagnosis Assessment: Chest pain Recent stent placement Dr Reyez last week AF w/recent h/o RVKj Steve in [place] Diastolic dysfunction Nausea and vomiting Advanced age Debility OAC for CVA PPx Hypothyroidism CRI Plan: Monitor closely Gentle IVF PT/OT Dr Reyez consultation Home meds Admission Status: Observation Diagnosis/Problems Diagnosis/Problems (1) Chest pain Status: Acute (2) Elevated brain natriuretic peptide (BNP) level Status: Acute (3) Renal insufficiency Status: Acute (4) Dyspnea Status: Acute (5) Nausea alone Status: Acute (6) Hypothyroidism Status: Chronic (7) HLD (hyperlipidemia) Status: Chronic (8) HTN (hypertension) Status: Chronic (9) CAD (coronary artery disease) Status: Chronic (10) Atrial fibrillation Status: Chronic JAZMÍN GASCA DO Jul 05, 2019 17:03
[2019-07-05] MEDS ORDERED: PROMETHAZINE 12.5 MG (PHENERGAN) SUPP PR PRN (17:15)
[2019-07-05] MEDS ORDERED: fentaNYL INJECTION 100 MCG/2 ML AMP IVP PRN (17:15)
[2019-07-05] MEDS: NS IV 1000 ML 1,000 ML IV SCH (17:22)
[2019-07-05] MEDS: RIVAROXABAN 20 MG TABLET (XARELTO) PO SCH (18:44)
[2019-07-05] MEDS: FUROSEMIDE 40 MG/4 ML INJ (LASIX) IVP SCH (18:44)
[2019-07-05] MEDS ORDERED: AMIODARONE 200 MG (CORDARONE) TAB PO SCH (21:00)
[2019-07-05] MEDS ORDERED: NON-FORMULARY MEDICATION 1 EA EA (Fluticasone/Salmeterol (Advair 100-50 Diskus) 1 PUFF) INH SCH (21:00)
[2019-07-05] MEDS ORDERED: CATHETER FLUSH 10 ML SYR IV SCH (22:00)
[2019-07-05] MEDS: ONDANSETRON 4 MG/2 ML (SDV) Z0FRAN IVP PRN (22:31)
[2019-07-06] VITALS (7 sets, daily range): BP systolic 120–150; BP diastolic 50–69
[2019-07-06] MEDS: ONDANSETRON 4 MG/2 ML (SDV) Z0FRAN IVP PRN ×3 (04:18→19:31)
[2019-07-06] MEDS: FUROSEMIDE 40 MG/4 ML INJ (LASIX) IVP SCH (06:16)
[2019-07-06] MEDS: LEVOTHYROXINE 25 MCG (LEVOTHROID) TAB PO SCH (06:16)
[2019-07-06 06:54] LABS: BASOPHILS # (AUTO) 0.1 10^3/uL (0.0-0.1); BASOPHILS % (AUTO) 1 % (0-10); EOSINOPHILS # (AUTO) 0.5 10^3/uL (0.0-0.3); EOSINOPHILS % (AUTO) 4 % (0-10); HEMATOCRIT 32 % (35-52); HEMOGLOBIN 10.4 G/DL (11.5-16.0); LYMPHOCYTES # (AUTO) 0.6 X 10^3 (1.0-4.0); LYMPHOCYTES % (AUTO) 5 % (12-44); MEAN CORPUSCULAR HEMOGLOBIN 30 PG (25-34); MEAN CORPUSCULAR HGB CONC 33 G/DL (32-36); MEAN CORPUSCULAR VOLUME 91 FL (80-99); MEAN PLATELET VOLUME 9.9 FL (7.4-10.4); MONOCYTES # (AUTO) 1.1 X 10^3 (0.0-1.0); MONOCYTES % (AUTO) 10 % (0-12); NEUTROPHILS # (AUTO) 8.5 X 10^3 (1.8-7.8); NEUTROPHILS % (AUTO) 79 % (42-75); PLATELET COUNT 254 10^3/uL (130-400); RED CELL DISTRIBUTION WIDTH 14.3 % (10.0-14.5); WHITE BLOOD COUNT 10.7 10^3/uL (4.3-11.0)
[2019-07-06 07:20] LABS: ALBUMIN 3.2 GM/DL (3.2-4.5); BILIRUBIN,TOTAL 0.7 MG/DL (0.1-1.0); CALCIUM 8.5 MG/DL (8.5-10.1); CREATININE SERUM 1.69 MG/DL (0.60-1.30); MAGNESIUM 1.9 MG/DL (1.6-2.4); POTASSIUM 3.9 MMOL/L (3.6-5.0)
[2019-07-06] MEDS: NS IV 1000 ML 1,000 ML IV SCH (07:47)
[2019-07-06] MEDS ORDERED: MAGNESIUM OXIDE (MAG-OX)400 MG TAB PO SCH (08:00)
--- NOTE | 2019-07-06 08:10 | Consultation-Cardiology ---
HPI-Cardiology Cardiology Consultation Date of Consultation 07/06/19 Date of Admission Time Seen by Provider: 08:03 Indication: Chest pain HPI 83-year-old lady with history of coronary artery disease, multiple intervention, had a recent stent, had chronic persistent atrial fibrillation. After her discharge she did not feel well continued to have upper epigastric pain and feeling tightness around her upper abdomen and chest, associated with nausea and vomiting and dry heaves, started on Reglan 2 days ago and felt somewhat better then started to deteriorate, this morning she is having dry heaves and nausea. Vomited once, having upper abdominal pain diffuse discomfort, feeling tightness around her chest and having mild dyspnea. No chest pain similar to the pain prior to her stent, no palpitation or syncope Home Medications & Allergies Allergies: Coded Allergies: Penicillins (Verified Allergy, Unknown, 07/21/18) propoxyphene (Verified Allergy, Unknown, 07/21/18) Home Medication List Reviewed: Yes YEJ-Jlvbrp-Nserxm Hx Patient Social History Marital Status: single Employed/Student: retired Alcohol Use: Denies Use Recreational Drug Use: No Smoking Status: Never a Smoker 2nd Hand Smoke Exposure: No Recent Foreign Travel: No Recent Infectious Disease Expo: No Recent Hopitalizations: Yes (DISCHARGED FROM [facility] 06/30/19, ER VISITS 25, 27, 29) Immunizations Up To Date Date of Pneumonia Vaccine: Nov 15, 2013 Date of Influenza Vaccine: Mar 07, 2019 Past Medical History Discussed below Family Medical History Significant Family History: CAD Under 55 Years Old, CAD Over 55 Years Old, Diabetes, Stroke Family Medical Hx Non contributory Review of Systems-General Review of Systems Constitutional: see HPI, dizziness, malaise, weakness EENTM: see HPI, no symptoms reported Respiratory: see HPI, cough; No dyspnea on exertion, No hemoptysis, No orthopnea, No phlegm; short of breath; No stridor, No wheezing, No other Cardiovascular: see HPI, chest pain Gastrointestinal: see HPI, abdominal pain, nausea, vomiting Genitourinary: no symptoms reported, see HPI Musculoskeletal: no symptoms reported Skin: no symptoms reported, see HPI Psychiatric/Neurological: See HPI, Weakness All Other Systems Reviewed Negative Unless Noted: Yes Reviewed Test Results Reviewed Test Results Lab Laboratory Tests Test 07/05/19 10:50 07/05/19 12:35 07/06/19 05:25 Range/Units White Blood Count 10.2 10.7 4.3-11.0 10^3/uL Red Blood Count 4.07 L 3.51 L 4.35-5.85 10^6/uL Hemoglobin 12.1 10.4 L 11.5-16.0 G/DL Hematocrit 36 32 L 35-52 % Mean Corpuscular Volume 88 91 80-99 FL Mean Corpuscular Hemoglobin 30 30 25-34 PG Mean Corpuscular Hemoglobin Concent 34 33 32-36 G/DL Red Cell Distribution Width 13.6 14.3 10.0-14.5 % Platelet Count 280 254 130-400 10^3/uL Mean Platelet Volume 9.5 9.9 7.4-10.4 FL Neutrophils (%) (Auto) 82 H 79 H 42-75 % Lymphocytes (%) (Auto) 6 L 5 L 12-44 % Monocytes (%) (Auto) 8 10 0-12 % Eosinophils (%) (Auto) 3 4 0-10 % Basophils (%) (Auto) 1 1 0-10 % Neutrophils # (Auto) 8.4 H 8.5 H 1.8-7.8 X 10^3 Lymphocytes # (Auto) 0.6 L 0.6 L 1.0-4.0 X 10^3 Monocytes # (Auto) 0.8 1.1 H 0.0-1.0 X 10^3 Eosinophils # (Auto) 0.3 0.5 H 0.0-0.3 10^3/uL Basophils # (Auto) 0.1 0.1 0.0-0.1 10^3/uL Neutrophils % (Manual) 78 % Lymphocytes % (Manual) 10 % Monocytes % (Manual) 8 % Eosinophils % (Manual) 2 % Basophils % (Manual) 0 % Band Neutrophils 2 % Blood Morphology Comment NORMAL Prothrombin Time 23.8 H 12.2-14.7 SEC INR Comment 2.0 H 0.8-1.4 Activated Partial Thromboplast Time 33 24-35 SEC D-Dimer 0.44 0.00-0.49 UG/ML Sodium Level 138 140 135-145 MMOL/L Potassium Level 4.1 3.9 3.6-5.0 MMOL/L Chloride Level 99 103 98-107 MMOL/L Carbon Dioxide Level 26 22 21-32 MMOL/L Anion Gap 13 15 H 5-14 MMOL/L Blood Urea Nitrogen 29 H 25 H 7-18 MG/DL Creatinine 1.80 H 1.69 H 0.60-1.30 MG/DL Estimat Glomerular Filtration Rate 27 29 BUN/Creatinine Ratio 16 15 Glucose Level 136 H 115 H 70-105 MG/DL Calcium Level 9.1 8.5 8.5-10.1 MG/DL Corrected Calcium 9.4 9.1 8.5-10.1 MG/DL Magnesium Level 2.3 1.9 1.6-2.4 MG/DL Total Bilirubin 0.7 0.7 0.1-1.0 MG/DL Aspartate Amino Transf (AST/SGOT) 27 24 5-34 U/L Alanine Aminotransferase (ALT/SGPT) 37 37 0-55 U/L Alkaline Phosphatase 117 106 40-136 U/L Troponin I < 0.30 0.102 H <0.028 NG/ML Pro-B-Type Natriuretic Peptide 8717.0 H <75.0 PG/ML Total Protein 6.7 6.0 L 6.4-8.2 GM/DL Albumin 3.6 3.2 3.2-4.5 GM/DL Lipase 41 8-78 U/L Digoxin Level 1.87 0.80-2.00 NG/ML Urine Color YELLOW Urine Clarity CLEAR Urine pH 7.0 5-9 Urine Specific Markle 1.015 L 1.016-1.022 Urine Protein NEGATIVE NEGATIVE Urine Glucose (UA) NEGATIVE NEGATIVE Urine Ketones NEGATIVE NEGATIVE Urine Nitrite NEGATIVE NEGATIVE Urine Bilirubin NEGATIVE NEGATIVE Urine Urobilinogen 0.2 < = 1.0 MG/DL Urine Leukocyte Esterase TRACE H NEGATIVE Urine RBC (Auto) TRACE H NEGATIVE Urine RBC RARE /HPF Urine WBC 2-5 /HPF Urine Squamous Epithelial Cells 5-10 /HPF Urine Crystals NONE /LPF Urine Bacteria FEW H /HPF Urine Casts NONE /LPF Urine Mucus NEGATIVE /LPF Urine Culture Indicated NO Physical Exam Physical Exam Vital Signs Vital Signs - First Documented 07/05/19 07/05/19 10:50 17:12 Temp 36.7 Pulse 78 Resp 18 B/P (MAP) 151/101 (118) Pulse Ox 96 O2 Delivery Room Air FiO2 21 Capillary Refill : Less Than 3 Seconds Height, Weight, BMI Height: 5'4.00" Weight: 190lbs. 0.7oz. 86.466564tn; 35.05 BMI Method:Stated General Appearance: Anxious, Chronically ill, Mild Distress Eyes: Right Eye Normal Inspection, Right Eye PERRL HEENT: PERRL/EOMI, Normal ENT Inspection, Pharynx Normal, Moist Mucous Membranes Neck: Full Range of Motion, Normal Inspection, Non Tender Respiratory: Chest Non Tender, Lungs Clear, Normal Breath Sounds, No Accessory Muscle Use, No Respiratory Distress Cardiovascular: No Edema, No Gallop, No JVD, No Murmur, Normal Peripheral Pulses, Irregularly Irregular Gastrointestinal: Normal Bowel Sounds, No Organomegaly, No Pulsatile Mass, Non Tender, Soft Back: Normal Inspection, No CVA Tenderness, No Vertebral Tenderness Extremity: Normal Capillary Refill, Normal Inspection, Normal Range of Motion, Non Tender, No Calf Tenderness, No Pedal Edema Neurologic/Psychiatric: Alert, Oriented x3, No Motor/Sensory Deficits, Normal Mood/Affect, padder cushion II-XII Norm as Tested, Disoriented Skin: Normal Color, Warm/Dry Lymphatic: No Adenopathy A/P-Cardiology Admission Diagnosis Non-ST elevation myocardial infarction Coronary artery disease Hypertension Hyperlipidemia Assessment/Plan Chest pain, mild elevation in troponin, diffuse abdominal pain, non-ST elevation myocardial infarction, continue on aspirin and Plavix and Xarelto and evaluate EKG, start nitroglycerin as needed Abdominal pain, nausea and vomiting, diffuse discomfort, I am stopping amiodarone, Lipitor and adding Carafate and continue on Reglan and monitor tolerance and response Elevated BNP, echocardiogram showed left ventricular hypertrophy with hyperactive ventricle, gradient across the left ventricular outflow tract probably due to hypovolemia, chronic left ventricular diastolic dysfunction, hypertensive heart disease. Coronary artery disease, history of multiple interventions in the past, had a total of 3 stents. Underwent cardiac catheterization on November 15, 2018 revealing moderate stenosis at the ostium of the right coronary artery, heavily calcified. 2 stents in the mid right coronary artery are patent with small vessel disease distally. Calcified left main coronary artery is moderate stenosis, nonobstructive disease. Patent stents in the mid circumflex artery with no obstructive disease, mild disease in LAD. Underwent cardiac catheterization on June 29, 2019 with balloon angioplasty to the mid right coronary artery and stenting to the ostium of the right coronary artery using Maryann 3 x 15 mm stent expanded to 3.25 mm with excellent results, still have moderate stenosis at the mid left main, mid LAD and mid circumflex artery with small vessel disease. Persistent atrial fibrillation, maintained on Xarelto, I will stop amiodarone at this time and monitor tolerance and response High risk of bleed, patient is maintained on aspirin, Plavix and Xarelto, I will consider stopping Xarelto if needed Peripheral edema, better at this time. Upper respiratory infection, recently diagnosed and treated with steroids as outpatient. Continue to monitor. Hypertension, continue on home medication Hyperlipidemia, continue holding Lipitor. Monitor tolerance and response Carotid artery stenosis, mild bilateral nonobstructive disease per carotid duplex done December 2018 Prediabetes Clinical Quality Measures DVT/VTE Risk/Contraindication: Risk Factor Score Per Nursin RFS Level Per Nursing on Admit: 3=High GEOFF THOMSON MD Jul 06, 2019 08:10
[2019-07-06] MEDS: ASPIRIN E.C. 81 MG (ECOTRIN) TAB PO SCH (08:14)
[2019-07-06] MEDS: PANTOPRAZOLE 40 MG (PROTONIX) TAB PO SCH (08:14)
[2019-07-06] MEDS: CLOPIDOGREL 75 MG (PLAVIX) TABLET PO SCH (08:16)
[2019-07-06] MEDS: NITROGLYCERIN 0.4 MG SL TABS BTL 25'S SL PRN ×3 (08:27→22:19)
--- NOTE | 2019-07-06 08:35 | NUR ---
Pt received [address] Reyez's request, pt reported a decrease in pain (chest tightness) from a 8 out of 10 to a 4. Pt refuses to take 2nd SL nitro at this time. Dr. Reyez notified, will continue to monitor.
[2019-07-06] MEDS ORDERED: NON-FORMULARY MEDICATION 1 EA EA (Magnesium Oxide 400 MG) PO SCH (09:00)
[2019-07-06] MEDS ORDERED: NON-FORMULARY MEDICATION 1 EA EA (Pantoprazole Sodium (Protonix) 40 MG) PO SCH (09:00)
[2019-07-06] MEDS ORDERED: METO5TAB2 PO (09:33)
[2019-07-06] MEDS ORDERED: CLOP75TA69 PO (09:33)
[2019-07-06] MEDS ORDERED: PANT40TA3 PO (09:33)
[2019-07-06] MEDS ORDERED: ASPI-983 PO (09:33)
--- NOTE | 2019-07-06 09:40 | NUR ---
SPOKE WITH THE PATIENTS DAUGHTER HANNAH ABOUT MEDICATIONS. SHE VERIFIED THE ONLY CHANGES THAT HAVE BEEN MADE SINCE THE PATIENT WAS DISCHARGED FROM HERE LAST WERE THE DIGOXIN WAS DISCONTINUED AND METOCLOPRAMIDE WAS ORDERED.
--- NOTE | 2019-07-06 10:01 | Physical Therapy Evaluation ---
PT Evaluation-General Medical Diagnosis Admission Date Jul 05, 2019 at 14:56 Medical Diagnosis: Nausea/SOA/Renal insufficiency Onset Date: Jul 03, 2019 Therapy Diagnosis Therapy Diagnosis: Deconditioning Height/Weight Height (Feet): 5 Height (Inches): 4.00 Weight (Pounds): 190 Weight (Ounces): 0.7 Precautions Precautions/Isolations: Fall Prevention, Standard Precautions Referral Physician: Dakotah Reason for Referral: Evaluation/Treatment Medical History Pertinent Medical History: Atrial Fib, CAD, HTN, Hypothroidism Current History Patient had stent placed by Dr. Reyez 1 week ago and was discharged from hospital 06/30. Patient came to ER 07/01 and was cleared at that date. Patient presented back to ER on the and was admitted at that time. Reviewed History: Yes Social History Home: Single Level Current Living Status: Children Entry Into Home: Ramp PT Steps Into Home: 0 PT Steps Inside Home: 0 Prior Prior Level of Function SCALE: Activities may be completed with or without assistive devices. 3-Jpnfsjjekt-hasyceb completes the activity by him/herself with no assistance from a helper. 5-Set-up or Clean-up Assistance-helper sets up or cleans up; patient completes activity. [place] assists only prior to or following the activity. 4-Supervision or Touching Assistance-helper provides verbal cues and/or touching/steadying and/or contact guard assistance as patient completes activity. Assistance may be provided throughout the activity or intermittently. 3-Partial/Moderate Assistance-helper does LESS THAN HALF the effort. [place] lifts, holds or supports trunk or limbs, but provides less than half the effort. 2-Substantial/Maximal Assistance-helper does MORE THAN HALF the effort. [place] lifts or holds trunk or limbs and provides more than half the effort. 8-Hqpfgjtbe-yedazu does ALL the effort. Patient does none of the effort to complete the activity. Or, the assistance of 2 or more helpers is required for the patient to complete the activity. If activity was not attempted, code reason: 7-Patient Refused. 9-Not Applicable-not attempted and the patient did not perform the activity before the current illness, exacerbation or injury. 10-Not Attempted due to Environmental Limitations-(lack of equipment, weather restraints, etc.). 88-Not Attempted due to Medical Conditions or Safety Concerns. Bed Mobility: 6 Transfers (B,C,W/C): 6 Gait: 6 Indoor Mobility (Ambulation): Independent Prior Devices Use: Walker PT Evaluation-Current Subjective Patient reports being very tired but is agreeable to therapy. Patient reports slight dizziness when sitting up that dissipates and patient is able to stand and ambulate. Objective Patient Orientation: Person, Place, Time, Situation Attachments: SCD's, Oxygen (2L), IV ROM/Strength ROM Lower Extremities WFL BLE Strength Lower Extremities Generalized BLE weakness. Integumentary/Posture Integumentary See nursing notes. Bowel Incontinence: No Bladder Incontinence: No Neuromuscular (Tone, Coordination, Reflexes) Grossly intact Sensory Vision: Wears Glasses Hearing: Functional Sensation Right Lower Extremit: Intact Sensation Left Lower Extremity: Intact Transfers Roll Left to Right (QC): 6 Sit to Lying (QC): 6 Lying to Sitting/Side of Bed(Q: 6 Sit to Stand (QC): 4 Chair/Seo-nk-Otugb Xfer(QC): 4 Gait Does the Patient Walk?: Yes Mode of Locomotion: Walk Anticipated Mode of Locomotion: Walk Walk 10 feet (QC): 4 Distance: 20' Gait Assistive Device: FWW Comments/Gait Description Patient is shaky during ambulation and fatigues quickly. Patient is only able to ambulate short distances at this time. Wheelchair Training Does the Pt Use a Wheelchair?: No Balance Sitting Static: Good Sitting Dynamic: Good Standing Static: Fair Standing Dynamic: Fair Assessment/Needs Patient is shaky during ambulation and fatigues quickly. After ambulation patient O2 drops to 85%. At this time patient is put on O2 at 2L, nursing notified. Rehab Potential: Fair PT Halfway Goals Cycle Specialist Goals PT Cycle Specialist Goals Time Frame: Jul 13, 2019 Roll Left & Right (QC): 6 Sit to Lying (QC): 6 Lying-Sitting on Side/Bed(QC): 6 Sit to Stand (QC): 6 Chair/Vca-sy-Keefg Xfer(QC): 6 Toilet Transfer (QC): 6 Does the Patient Walk: Yes Walk 10 feet (QC): 6 Walk 50ft with 2 Turns (QC): 6 Walk 150 ft (QC): 6 PT Plan Problem List Problem List: Activity Tolerance, Functional Strength, Safety, Balance, Gait, Transfer, Bed Mobility, ROM Treatment/Plan Treatment Plan: Continue Plan of Care Treatment Plan: Bed Mobility, Education, Functional Activity Abdiel, Functional Strength, Gait, Safety, Therapeutic Exercise, Transfers Treatment Duration: Jul 14, 2019 Frequency: 6 times per week Estimated Hrs Per Day: .25 hour per day Patient and/or Family Agrees t: Yes Safety Risks/Education Patient Education: Gait Training, Transfer Techniques Teaching Recipient: Patient Teaching Methods: Discussion Response to Teaching: Reinforcement Needed Time/GCodes Time In: 936 Time Out: 948 Total Billed Treatment Time: 12 Total Billed Treatment 1 visit EVM (12 minutes) NICO CHAVEZ PT Jul 06, 2019 10:01
--- NOTE | 2019-07-06 10:26 | Progress Note - Hospitalist ---
Subjective HPI/CC On Admission Date Seen by Provider: Jul 06, 2019 Time Seen by Provider: 09:30 CC: Chest pain with nausea and weakness HPI: This is an 83yoWF clinic patient of SARA Cantu with Dr Ojeda who presented to the ER after assessed by her PCP and due to declined status she wassent for full evaluation. I did reviewed all of [facility] records listed below after daughter told me she was at [facility] for 2 weeks then DC then admitted to [facility] and underwent stent placement but then DC and became quite declined and had 2 ER visits for non-specific complaints. Dr Reyez has been consulted who placed the stent last week and will evaluate from the cardiac standpoint. I assessed the patient to be quite declined and appears to be declining towards complete debility and considering the age is 83yo it is quite possible this is the rapid spiral of her health she had previously so will do everything we can to help her reverse the direction she is going in her decline. DC note from [facility]: Michaela Hinton a 83 y.o.femalewho was admitted to [facility] on [facility]10[facility]2019for evaluation of A. fib with RVR, acute on chronic diastolic heart failure and acute respiratory failure with hypoxia. She was also noted to have LILO initially. At the time of admission, she was diuresed and started on Card izem drip and then transferred to TCU/ICU. During the admission metoprolol was discontinued due to QT prolongation. As she was transitioned off Cardizem drip, she was started on amiodarone and oral Cardizem for better heart rate control. She progressed well during the admission and we received assistance from cardiology during it. She was then discharged on 06/21 and was doing well. Sotalol and Micardis was discontinued by cardiology. She was started on amiodarone, digoxin and diltiazem. On the day of discharge, she was complaining of cough. Chest x-ray negative. On physical exam she had minimal expiratory wheezing. No history of COPD or smoking. She was given a prescription for al buterol and Advair. For cough she was given a prescription of Tessalon Perles and Medrol Dosepak. At the time of discharge she was doing well, at her baseline mentation, had no cardiopulmonary symptoms except slight cough and was ambulating at baseline. She was discharged with home health. She was recommended to follow-up with PCP, cardiology and nephrology clinic in 7 to 10 days and repeat CBC and CMP to monitor any abnormalities of present at the time of discharge. All the questions were answered to her and her family satisfaction. They were extremely pleased with the care. She was also discharged with a 4 leg walker. Progress note from Evi: 1. Acute on chronic diastolic heart failure: 2. Acute respiratory failure with hypoxia: a. Echocardiogram remarkable for moderate concentric left ventricular hypertrophy with moderately dilated left atrium. EF 69%. proBNP 5761 on admission. b. No history of asthma or COPD. Patient with a lot of wheezing. On 2 L nasal cannula oxygen. Will need outpatient follow-up with pulmonology for PFT. c. Start Lasix 20 mg daily. Continue nebulizer treatment. 3. Atrial fibrillation with RVR: Narciso vas5.improved heart rate. Continue digoxin, amiodarone, and diltiazem. Continue Xarelto. Cardiology on board. 4. Coronary artery disease: Status post PTCA with stent to the RCA. Stress test this admission was unremarkable. Continue Lipitor 5. Hypertension:Controlled with Cardizem. Other antihypertensive held given borderline blood pressures. 6. Chronic kidney disease: Creatinine around 1.36 in June of last year. Creatinine has remained stable .Avoid nephrotoxic agents. 7. Hypothyroidism: Continue Synthroid 8. Obesity:Body mass index is 36.73 kg/m.Due to calorie excess. Lifestyle modification with diet. Subjective/Events-last exam Pt doing pretty well but elevated Troponin PT and OT ordered Inpatient rehab tomorrow Conferred with Dr. Aissatou Kangate was started for the esophagus issues Requiring oxygen and normally doesn't require oxygen No pain is reported Pt appears to be improved a bit Review of Systems General: Fatigue Pulmonary: Dyspnea Objective Exam Vital Signs Vital Signs Date Time Temp Pulse Resp B/P (MAP) Pulse Ox O2 Delivery O2 Flow Rate FiO2 07/06/19 19:26 36.8 70 16 143/50 (81) 93 Room Air 07/06/19 15:16 2.00 07/06/19 11:48 28 Capillary Refill : Less Than 3 Seconds General Appearance: No Apparent Distress, WD/WN, Chronically ill Respiratory: Lungs Clear, Normal Breath Sounds Cardiovascular: No Edema, No Gallop, No JVD, No Murmur, Normal Peripheral Pulses, Irregularly Irregular Neurologic/Psychiatric: Alert, Oriented x3, No Motor/Sensory Deficits, Normal Mood/Affect Results/Procedures Lab Laboratory Tests 07/06/19 05:25 Patient resulted labs reviewed. Assessment/Plan Assessment and Plan Assess & Plan/Chief Complaint Assessment: Chest pain recent cath with stent placement last week now NSTEMI AF w/recent h/o RVR [facility] [place] Diastolic dysfunction Nausea and vomiting Advanced age Debility OAC for CVA PPx Hypothyroidism CRI New hypoxia Plan: Monitor closely Gentle IVF PT/OT Dr Reyez consultation Home meds [place] [facility] tomorrow Diagnosis/Problems Diagnosis/Problems (1) NSTEMI (non-ST elevated myocardial infarction) Status: Acute (2) Chest pain Status: Acute (3) Elevated brain natriuretic peptide (BNP) level Status: Acute (4) Renal insufficiency Status: Acute (5) Dyspnea Status: Acute (6) Nausea alone Status: Acute (7) Hypothyroidism Status: Chronic (8) HLD (hyperlipidemia) Status: Chronic (9) HTN (hypertension) Status: Chronic (10) CAD (coronary artery disease) Status: Chronic (11) Atrial fibrillation Status: Chronic Clinical Quality Measures DVT/VTE Risk/Contraindication: Risk Factor Score Per Nursin RFS Level Per Nursing on Admit: 3=High ALICIA GASCA DO Jul 06, 2019 10:26
--- NOTE | 2019-07-06 10:28 | Occupational Therapy Eval ---
OT Evaluation-General/PLF Medical Diagnosis Admission Date Jul 05, 2019 at 14:56 Medical Diagnosis: Chest pain/A-fib Onset Date: Jul 03, 2019 Therapy Diagnosis Therapy Diagnosis: Weakness Height/Weight Height (Feet): 5 Height (Inches): 4.00 Weight (Pounds): 190 Weight (Ounces): 0.7 Precautions Precautions/Isolations: Fall Prevention, Standard Precautions Weight Bear Status Weight Bearing Restriction: Weight Bearing/Tolerated Referral Physician: Dakotah Referral Reason: Activity Tolerance, Self Care, Evaluation/Treatment, Strengthening/ROM Medical History Pertinent Medical History: Atrial Fib, CAD, HTN, Hypothroidism Additional Medical History RVR, heart failure, respiratory failure, hypoxia, stent placement. Current History Pt. has had multiple hospitalizations this past month, including a stent placement. Prior to original hospitalization on Jun.10, pt. was fully independent. Reviewed History: Yes Social History Home: Single Level Current Living Status: Children (Daughter and son in law) Entry Into Home: Ramp Steps Into Home: 0 Steps Inside Home: 0 ADL-Prior Level of Function SCALE: Activities may be completed with or without assistive devices. 5-Auiwllchxk-jnuyiav completes the activity by him/herself with no assistance from a helper. 5-Set-up or Clean-up Assistance-helper sets up or cleans up; patient completes activity. [place] assists only prior to or following the activity. 4-Supervision or Touching Assistance-helper provides verbal cues and/or touching/steadying and/or contact guard assistance as patient completes activity. Assistance may be provided throughout the activity or intermittently. 3-Partial/Moderate Assistance-helper does LESS THAN HALF the effort. [place] lifts, holds or supports trunk or limbs, but provides less than half the effort. 2-Substantial/Maximal Assistance-helper does MORE THAN HALF the effort. [place] lifts or holds trunk or limbs and provides more than half the effort. 8-Epavgwtic-[place] does ALL the effort. Patient does none of the effort to complete the activity. Or, the assistance of 2 or more helpers is required for the patient to complete the activity. If activity was not attempted, code reason: 7-Patient Refused. 9-Not Applicable-not attempted and the patient did not perform the activity before the current illness, exacerbation or injury. 10-Not Attempted due to Environmental Limitations-(lack of equipment, weather restraints, etc.). 88-Not Attempted due to Medical Conditions or Safety Concerns. ADL PLOF Comments Pt. was independent with daily tasks, such as bathing/dressing. Drives. Independently ambulated without walker. Started using walker after first hospitalization in June. Self Care: Independent Functional Cognition: Independent DME/Equipment: Bath Chair, Tub/Shower DME/Equipment Comments Has walker and family is installing tall toilet today at home. Drive Self: Yes OT Current Status Subjective No pain. However pt. reports that she was nauseated throughout the night. Pt. received Zofran prior to OT entering room. Appearance Pt. in bed. Agrees to work with OT. Mental Status/Objective Patient Orientation: Person, Place Attachments: IV Current Glasses/Contacts: Yes Hand Dominance: Right Upper Extremity ROM Pt. is able to flex shoulders to approximately 90 degrees. ADL-Treatment Oral Hygiene (QC): 4 (SBA seated on side of bed.) Shower/Bathe Self (QC): 4 (CGA in stance to wash milka area. Pt. able to wash UE and down to socks seated on side of bed. Declined doffing socks as she put them on last night.) Lower Body Dressing (QC): 4 (CGA in stance to doff underwear. Declined putting anything else on.) On/Off Footwear (QC): 7 Toileting Hygiene (QC): 4 (CGA in stance to wash [place] area after toileting.) toilet transfer (4) Other Treatments Pt. transferred supine-sit with SBA. Stood and transferred to toilet with CGA. After toileting, transferred back to side of bed and completed sponge bath e/brushing teeth. OT washed pt's hair with shampoo cap, and pt. able to comb hair after. Pt. reported that she felt nauseated again and so pt. transferred sit-supine with SBA. All needs met. Education OT Patient Education: Correct positioning, Modified ADL techniques, Progress toward Goal/Update tx plan, Purpose of tx/functional activities, Reviewed precautions, Rehab process, Transfer techniques Teaching Recipient: Patient Teaching Methods: Demonstration, Discussion Response to Teaching: Verbalize Understanding, Return Demonstration OT Junior Staff Accountant Goals Chcf Goals Time Frame: Jul 20, 2019 Eating (QC): 6 Oral Hygiene (QC): 6 Toileting Hygiene (QC): 6 Shower/Bathe Self (QC): 5 Upper Body Dressing (QC): 5 Lower Body Dressing (QC): 5 On/Off Footwear (QC): 5 Additional Goals: 1-Demonstrate ADL Tasks, 2-Verbalize Understanding, 3- ImproveStrength/Abdiel 1=Demonstrate adherence to instructed precautions during ADL tasks. 2=Patient will verbalize/demonstrate understanding of assistive devices/modifications for ADL. 3=Patient will improve strength/tolerance for activity to enable patient to perform ADL's. OT Education/Plan Problem List/Assessment Assessment: Decreased Activ Tolerance, Dependent Transfers, Impaired Funct Balance, Impaired I ADL's, Impaired Self-Care Skills Discharge Recommendations Plan/Recommendations: Continue POC Therapy Discharge Recommendati: Home & Family, Post Acute OT Treatment Plan/Plan of Care Treatment,Training & Education: Yes Patient would benefit from OT for education, treatment and training to promote independence in ADL's, mobility, safety and/or upper extremity function for ADL's. Plan of Care: ADL Retraining, Functional Mobility, UE Funct Exercise/Act Treatment Duration: Jul 20, 2019 Frequency: 5 times per week Estimated Hrs Per Day: .5 hour per day Agreement: Yes Rehab Potential: Good Time/GCodes Start Time: 08:55 Stop Time: 09:25 Total Time Billed (hr/min): 30 Billed Treatment Time 1, EVM x 15minutes, ADL x 15minutes COOKIE BLANCHARD OT Jul 06, 2019 10:28
[2019-07-06] MEDS: ONDANSETRON 4 MG (ZOFRAN) ORAL DISSOLVE TAB PO PRN (12:41)
[2019-07-06] MEDS: SUCRALFATE 1 GM (CARAFATE) TAB PO SCH ×3 (12:43→21:30)
[2019-07-06] MEDS ORDERED: RT-ALBUTEROL/IPRATROPIUM 3 ML (DUONEB) VIAL INH PRN (16:00)
[2019-07-06] MEDS: RT-ALBUTEROL/IPRATROPIUM 3 ML (DUONEB) VIAL INH SCH ×3 (16:08→22:35)
[2019-07-06] MEDS: RIVAROXABAN 20 MG TABLET (XARELTO) PO SCH (18:34)
[2019-07-06] MEDS ORDERED: morphine INJ 10 MG/ML 1ML (SYR OR VIAL) ONE (22:28)
[2019-07-06] MEDS ORDERED: NS IV 500 ML 500 ML ONE (22:29)
[2019-07-06] MEDS ORDERED: morphine INJ 10 MG/ML 1ML (SYR OR VIAL) IVP STA (22:30)
[2019-07-06] MEDS: RT-ADVAIR HFA 45/21 MCG PER PUFF IH SCH (22:35)
[2019-07-06] MEDS ORDERED: NS IV 500 ML 500 ML IV ONE (22:45)
--- NOTE | 2019-07-06 23:52 | NUR ---
2199-PATIENT REPORTS FEELING CHEST TIGHTNESS THAT WORSENS WHEN TAKING DEEP BREATHS. DENIES PAIN OR OTHER SYMPTOMS. VS OBTAINED AT THIS TIME: B/P 133/65, PULSE 67, O2 SAT 96% ON 2L O2 NC 2209- PATIENT REPORTS CHEST PAIN 02/14. 1 DOSE SL NITRO GIVEN, EKG OBTAINED 2218-VS: B/P 159/69, HR 69, O2 93% ON 2L O2 NC. PT REPORTS NO RELIEVE. SECOND DOSE OF SL NITRO GIVEN. 2223- VS: 126/52, HR 63, O2 94%. STILL REPORTS 02/14 CHEST PAIN. PT DESCRIBES CHEST PAIN "FEELING HEAVY, ESPECIALLY WHILE BREATHING" AND "TIGHTNESS IN CHEST" 2224- DR. THOMSON CALLED REGARDING PT CONDITION. ONE TIME DOSE 2MG IV MORPHINE ORDERED. AND ASKED TO SEE COPY OF EKG 2225-PT B/P 94/49, HR 69, O2 93% WITH OXYGEN 2227- PT VS: B/P: 118/52, HR 68, O2 93% WITH OXYGEN. 2229- EKG SENT TO DR. THOMSON. ORDERED PT TO BE NPO AFTER MIDNIGHT. ORDERED 500ML NS BOLUS TO BE GIVEN WITH MORPHINE 2233- PT VS: 134/63, HR 74, O2 94% WITH 4 L OXYGEN VIA NC. PT REPORTS PAIN IS STILL BAD AND THAT SHE DOESN'T FEEL RIGHT. 2239- PT STARTS TO FEEL SOME RELIEF, RATING PAIN AT 12/14 2245- B/P 125/56, HR 65, O2 91% ON 4L OXYGEN. REPORTS PAIN 11/14 2310- PATIENT RE-ASSESSED, REPORTS NO PAIN AT THIS TIME, STATES SHE WISHES TO GET SOME REST.
[2019-07-07] VITALS (7 sets, daily range): BP systolic 114–155; BP diastolic 56–70
[2019-07-07] MEDS: NS IV 1000 ML 1,000 ML IV SCH ×2 (00:17→13:30)
[2019-07-07] MEDS: RT-ALBUTEROL/IPRATROPIUM 3 ML (DUONEB) VIAL INH SCH ×6 (01:44→23:27)
[2019-07-07 06:00] LABS: HEMOGLOBIN 11.2 G/DL (11.5-16.0); MEAN PLATELET VOLUME 9.3 FL (7.4-10.4); RED CELL DISTRIBUTION WIDTH 14.5 % (10.0-14.5); WHITE BLOOD COUNT 10.7 10^3/uL (4.3-11.0)
[2019-07-07 06:18] LABS: ALBUMIN 3.1 GM/DL (3.2-4.5); BILIRUBIN,TOTAL 0.7 MG/DL (0.1-1.0); CALCIUM 8.1 MG/DL (8.5-10.1); CREATININE SERUM 1.52 MG/DL (0.60-1.30); POTASSIUM 3.8 MMOL/L (3.6-5.0); TOTAL PROTEIN 5.8 GM/DL (6.4-8.2)
--- NOTE | 2019-07-07 06:55 | NUR ---
DR GASCA UPDATED ON PT STATUS. NEW ORDERS RECEIVED, SEE ORDER HISTORY.
--- NOTE | 2019-07-07 07:45 | NUR ---
TO CT SCAN PER BED.
--- NOTE | 2019-07-07 08:00 | NUR ---
PT DAUGHTER AT BEDSIDE, THIS NURSE UPDATED HER ON PT CONDITION
--- NOTE | 2019-07-07 08:00 | NUR ---
RETURNED FROM CT SCAN PER BED. DAUGHTER IN ROOM.
--- NOTE | 2019-07-07 08:11 | Diagnostic Imaging Report ---
INDICATION: Altered mental status. TECHNIQUE: Routine non contrast-enhanced axial images were obtained from the skull base to the vertex. Auto Exposure Controls were utilized during the CT exam to meet ALARA standards for radiation dose reduction COMPARISON: 07/05/2019 FINDINGS: The ventricles and cortical sulci are diffusely prominent, compatible with age-related volume loss. There are confluent areas of abnormal, low attenuation in the periventricular white matter. This is consistent with chronic small vessel ischemic changes. There is no midline shift or mass-effect. No acute intra-axial hemorrhage is seen. There are no abnormal areas of increased or decreased density to suggest acute hemorrhage or edema. 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 The bony calvarium is intact. The visualized paranasal sinuses are unremarkable. The mastoid air cells are clear. IMPRESSION: 1. No acute intracranial abnormality. No CT evidence of mass, acute infarct or intracranial hemorrhage. 2. Chronic small vessel ischemic changes in the deep white matter. Dictated by: Dictated on workstation # [id number]
[2019-07-07] MEDS: CLOPIDOGREL 75 MG (PLAVIX) TABLET PO SCH (09:11)
[2019-07-07] MEDS: PANTOPRAZOLE 40 MG (PROTONIX) TAB PO SCH (09:11)
[2019-07-07] MEDS: ASPIRIN E.C. 81 MG (ECOTRIN) TAB PO SCH (09:11)
[2019-07-07] MEDS: ONDANSETRON 4 MG (ZOFRAN) ORAL DISSOLVE TAB PO PRN (09:11)
[2019-07-07] MEDS: LEVOTHYROXINE 25 MCG (LEVOTHROID) TAB PO SCH (09:11)
[2019-07-07] MEDS: SUCRALFATE 1 GM (CARAFATE) TAB PO SCH ×4 (09:12→20:01)
[2019-07-07] MEDS: ISOSORBIDE MONONITRATE 30 MG (IMDUR) TAB PO SCH (09:12)
--- NOTE | 2019-07-07 09:50 | Cardiology Progress Note ---
Subjective Date Seen by Provider: Jul 07, 2019 Time Seen by Provider: 09:48 Subjective/Events-last exam patient is laying down in bed, sleepy, very anxious, had another episode of chest pain last night responded to morphine and nitroglycerin. Was concerned that she is having difficulty breathing but after she fell asleep she appeared comfortable and breathing normal. Review of Systems General: No Chills, No Night Sweats; Fatigue; No Malaise, No Appetite, No Other HEENT: No Head Aches, No Visual Changes, No Eye Pain, No Ear Pain, No Dysphasia, No Sinus Congestion, No Post Nasal Drip, No Sore Throat, No Other Pulmonary: Dyspnea; No Cough, No Pleuritic Chest Pain, No Other Cardiovascular: Chest Pain; No: Palpitations, Orthopnea, Paroxysmal Noc. Dyspnea, Edema, Lt Headedness, Other Objective-Cardiology Exam Last Set of Vital Signs Vital Signs 07/06/19 07/07/19 11:48 08:00 Temp 36.9 Pulse 68 Resp 18 B/P (MAP) 145/64 (91) Pulse Ox 90 O2 Delivery High Flow N/C O2 Flow Rate 3.00 FiO2 28 Capillary Refill : Less Than 3 Seconds I&O Intake and Output 07/07/19 00:00 Intake Total 400 ml Output Total 200 ml Balance 200 ml Intake Oral 400 ml Output Urine Total 200 ml # Voids 5 General: Alert, Oriented X3, Cooperative HEENT: Atraumatic, PERRLA Neck: Supple, No JVD, No Thyromegaly Lungs: Clear to Auscultation, Normal Air Movement Heart: Regular Rate, Normal S1, Normal S2, No Murmurs Abdomen: Normal Bowel Sounds, Soft, No Tenderness, No Hepatosplenomegaly, No Masses Extremities: No Clubbing, No Cyanosis, No Edema, Normal Pulses, No Tenderness/Swelling Skin: No Rashes, No Breakdown, No Significant Lesion Neuro: Normal Gait, Normal Speech, Strength at 5/5 X4 Ext, Normal Tone, Sensation Intact Psych/Mental Status: Mental Status NL, Mood NL Results Lab Laboratory Tests 07/07/19 05:50 A/P-Cardiology Admission Diagnosis Non-ST elevation myocardial infarction Coronary artery disease Hypertension Hyperlipidemia Assessment/Plan Chest pain, mild elevation in troponin, diffuse abdominal pain, non-ST elevation myocardial infarction, continue on aspirin and Plavix and Xarelto and evaluate EKG, start nitroglycerin as needed Abdominal pain, nausea and vomiting, diffuse discomfort, better after discontinuation of amiodarone and Lipitor, I started her on Carafate. Anxiety, depression, I'll start Zoloft and monitor Elevated BNP, echocardiogram showed left ventricular hypertrophy with hyperactive ventricle, gradient across the left ventricular outflow tract probably due to hypovolemia, chronic left ventricular diastolic dysfunction, hypertensive heart disease. Coronary artery disease, history of multiple interventions in the past, had a total of 3 stents. Underwent cardiac catheterization on November 15, 2018 revealing moderate stenosis at the ostium of the right coronary artery, heavily calcified. 2 stents in the mid right coronary artery are patent with small vessel disease distally. Calcified left main coronary artery is moderate stenosis, nonobstructive disease. Patent stents in the mid circumflex artery with no obstructive disease, mild disease in LAD. Underwent cardiac catheterization on June 29, 2019 with balloon angioplasty to the mid right coronary artery and stenting to the ostium of the right coronary artery using Maryann 3 x 15 mm stent expanded to 3.25 mm with excellent results, still have moderate stenosis at the mid left main, mid LAD and mid circumflex artery with small vessel disease. Persistent atrial fibrillation, maintained on Xarelto, I will stop amiodarone at this time and monitor tolerance and response High risk of bleed, patient is maintained on aspirin, Plavix and Xarelto, I will consider stopping Xarelto if needed Peripheral edema, better at this time. Upper respiratory infection, recently diagnosed and treated with steroids as outpatient. Continue to monitor. Hypertension, continue on home medication Hyperlipidemia, continue holding Lipitor. Monitor tolerance and response Carotid artery stenosis, mild bilateral nonobstructive disease per carotid duplex done December 2018 Prediabetes Clinical Quality Measures DVT/VTE Risk/Contraindication: Risk Factor Score Per Nursin RFS Level Per Nursing on Admit: 3=High GEOFF THOMSON MD Jul 07, 2019 09:50
[2019-07-07] MEDS: RT-ADVAIR HFA 45/21 MCG PER PUFF IH SCH (10:01)
[2019-07-07 10:05] LABS: ABG BASE EXCESS 2.3 MMOL/L (-2.5-2.5); ABG OXYGEN SATURATION 97 % (94-100); ABG PCO2 32 MMHG (35-45); ABG PH 7.51 (7.37-7.43); ABG PO2 71 MMHG (79-93); ABG TCO2 26.3 MMOL/L (21.0-31.0); ALLENS TEST YES-POS; INSPIRED O2 2 L; PATIENT TEMP 36.9; VENTILATOR NO
--- NOTE | 2019-07-07 11:12 | Progress Note - Hospitalist ---
Subjective HPI/CC On Admission Date Seen by Provider: Jul 07, 2019 Time Seen by Provider: 10:30 CC: Chest pain with nausea and weakness HPI: This is an 83yoWF clinic patient of SARA Cantu with Dr Ojeda who presented to the ER after assessed by her PCP and due to declined status she wassent for full evaluation. I did reviewed all of [facility] records listed below after daughter told me she was at [facility] for 2 weeks then DC then admitted to [facility] and underwent stent placement but then DC and became quite declined and had 2 ER visits for non-specific complaints. Dr Reyez has been consulted who placed the stent last week and will evaluate from the cardiac standpoint. I assessed the patient to be quite declined and appears to be declining towards complete debility and considering the age is 83yo it is quite possible this is the rapid spiral of her health she had previously so will do everything we can to help her reverse the direction she is going in her decline. DC note from [facility]: Michaela Hinton a 83 y.o.femalewho was admitted to [facility] on 06/10/2019for evaluation of A. fib with RVR, acute on chronic diastolic heart failure and acute respiratory failure with hypoxia. She was also noted to have LILO initially. At the time of admission, she was diuresed and started on Card izem drip and then transferred to TCU/ICU. During the admission metoprolol was discontinued due to QT prolongation. As she was transitioned off Cardizem drip, she was started on amiodarone and oral Cardizem for better heart rate control. She progressed well during the admission and we received assistance from cardiology during it. She was then discharged on 06/21 and was doing well. Sotalol and Micardis was discontinued by cardiology. She was started on amiodarone, digoxin and diltiazem. On the day of discharge, she was complaining of cough. Chest x-ray negative. On physical exam she had minimal expiratory wheezing. No history of COPD or smoking. She was given a prescription for al buterol and Advair. For cough she was given a prescription of Tessalon Perles and Medrol Dosepak. At the time of discharge she was doing well, at her baseline mentation, had no cardiopulmonary symptoms except slight cough and was ambulating at baseline. She was discharged with home health. She was recommended to follow-up with PCP, cardiology and nephrology clinic in 7 to 10 days and repeat CBC and CMP to monitor any abnormalities of present at the time of discharge. All the questions were answered to her and her family satisfaction. They were extremely pleased with the care. She was also discharged with a 4 leg walker. Progress note from Evi: 1. Acute on chronic diastolic heart failure: 2. Acute respiratory failure with hypoxia: a. Echocardiogram remarkable for moderate concentric left ventricular hypertrophy with moderately dilated left atrium. EF 69%. proBNP 5761 on admission. b. No history of asthma or COPD. Patient with a lot of wheezing. On 2 L nasal cannula oxygen. Will need outpatient follow-up with pulmonology for PFT. c. Start Lasix 20 mg daily. Continue nebulizer treatment. 3. Atrial fibrillation with RVR: Narciso vas5.improved heart rate. Continue digoxin, amiodarone, and diltiazem. Continue Xarelto. Cardiology on board. 4. Coronary artery disease: Status post PTCA with stent to the RCA. Stress test this admission was unremarkable. Continue Lipitor 5. Hypertension:Controlled with Cardizem. Other antihypertensive held given borderline blood pressures. 6. Chronic kidney disease: Creatinine around 1.36 in June of last year. Creatinine has remained stable .Avoid nephrotoxic agents. 7. Hypothyroidism: Continue Synthroid 8. Obesity:Body mass index is 36.73 kg/m.Due to calorie excess. Lifestyle modification with diet. Subjective/Events-last exam Pt has an issue with hypoxia and chest pain, Troponin was improved, Dr. Reyez did not feel like she needed any type of intervention and she does have small vessel cardiac disease. I planned on sending her to inpatient rehab today but she appears to be very declined and she goes through episodes like she had last night with confusion. Multiple meds were discontinued by Dr. Reyez to help with that and I did talk to her daughter but it appears she does have significant decline and decompensation propensity and that would not be a good idea to go to inpatient rehab today, and we will check her everyday to see when she will be ready. Review of Systems General: Fatigue Pulmonary: Dyspnea Neurological: Confusion Objective Exam Vital Signs Vital Signs Date Time Temp Pulse Resp B/P (MAP) Pulse Ox O2 Delivery O2 Flow Rate FiO2 07/07/19 14:44 93 High Flow N/C 2.00 07/07/19 12:22 74 07/07/19 12:00 36.8 18 130/58 (82) 07/06/19 11:48 28 Capillary Refill : Less Than 3 Seconds General Appearance: No Apparent Distress, WD/WN, Anxious, Chronically ill Respiratory: No Accessory Muscle Use, No Respiratory Distress, Decreased Breath Sounds Cardiovascular: No Gallop, No JVD, No Murmur, Normal Peripheral Pulses, I rregularly Irregular Neurologic/Psychiatric: Alert, No Motor/Sensory Deficits, Disoriented Results/Procedures Lab Laboratory Tests 07/07/19 05:50 Patient resulted labs reviewed. Assessment/Plan Assessment and Plan Assess & Plan/Chief Complaint Assessment: Chest pain recent cath with stent placement last week now NSTEMI AMS with declined appearance this morning AF w/recent h/o RVR [facility] [place] Diastolic dysfunction Nausea and vomiting Advanced age Debility OAC for CVA PPx Hypothyroidism CRI New hypoxia Plan: Monitor closely Gentle IVF PT/OT Dr Reyez consultation Home meds Carafate IRF when strong enough to succeed Diagnosis/Problems Diagnosis/Problems (1) NSTEMI (non-ST elevated myocardial infarction) Status: Acute (2) Chest pain Status: Acute (3) Elevated brain natriuretic peptide (BNP) level Status: Acute (4) Renal insufficiency Status: Acute (5) Dyspnea Status: Acute (6) Nausea alone Status: Acute (7) Hypothyroidism Status: Chronic (8) HLD (hyperlipidemia) Status: Chronic (9) HTN (hypertension) Status: Chronic (10) CAD (coronary artery disease) Status: Chronic (11) Atrial fibrillation Status: Chronic Clinical Quality Measures DVT/VTE Risk/Contraindication: Risk Factor Score Per Nursin RFS Level Per Nursing on Admit: 3=High AILCIA GASCA DO Jul 07, 2019 11:12
--- NOTE | 2019-07-07 11:20 | Physical Therapy Daily Note ---
PT Daily Note-Current Subjective Patient in bed pre tx, reluctantly agrees to exercises in bed. Patient states she is very tired, had a hard night last night, and doesn't want to get out of bed at this time. Patient has no complaints of pain. Appearance Patient in bed post tx with nurse call, phone, tray, all needs met. Mental Status Patient Orientation: Person, Place, Situation Attachments: Adam Catheter, IV Transfers SCALE: Activities may be completed with or without assistive devices. 3-Kroyjbuxlf-ziwajyv completes the activity by him/herself with no assistance from a helper. 5-Set-up or Clean-up Assistance-helper sets up or cleans up; patient completes activity. Garwin assists only prior to or following the activity. 4-Supervision or Touching Assistance-helper provides verbal cues and/or touching/steadying and/or contact guard assistance as patient completes activity. Assistance may be provided throughout the activity or intermittently. 3-Partial/Moderate Assistance-helper does LESS THAN HALF the effort. Garwin lifts, holds or supports trunk or limbs, but provides less than half the effort. 2-Substantial/Maximal Assistance-helper does MORE THAN HALF the effort. Garwin lifts or holds trunk or limbs and provides more than half the effort. 9-Qmtqlocji-wvmlxe does ALL the effort. Patient does none of the effort to complete the activity. Or, the assistance of 2 or more helpers is required for the patient to complete the activity. If activity was not attempted, code reason: 7-Patient Refused. 9-Not Applicable-not attempted and the patient did not perform the activity before the current illness, exacerbation or injury. 10-Not Attempted due to Environmental Limitations-(lack of equipment, weather restraints, etc.). 88-Not Attempted due to Medical Conditions or Safety Concerns. Exercises Supine Ex: Ankle pumps, Quad Set, Glut sets, Heel Slides, Short Arc Quads, Straight leg raise, Hip abd/add Supine Reps: 15 Treatments LE exercise, ROM Assessment Current Status: Poor Progress Patient very fatigued, needed several rest breaks due to fatigue. PT Senior Living Goals Senior Living Goals PT Senior Living Goals Time Frame: Jul 13, 2019 Roll Left & Right (QC): 6 Sit to Lying (QC): 6 Lying-Sitting on Side/Bed(QC): 6 Sit to Stand (QC): 6 Chair/Gpi-wz-Fbicy Xfer(QC): 6 Toilet Transfer (QC): 6 Does the Patient Walk: Yes Walk 10 feet (QC): 6 Walk 50ft with 2 Turns (QC): 6 Walk 150 ft (QC): 6 PT Plan Problem List Problem List: Activity Tolerance, Functional Strength, Safety, Balance, Gait, Transfer, Bed Mobility, ROM Treatment/Plan Treatment Plan: Continue Plan of Care Treatment Plan: Bed Mobility, Education, Functional Activity Abdiel, Functional Strength, Gait, Safety, Therapeutic Exercise, Transfers Treatment Duration: Jul 14, 2019 Frequency: 6 times per week Estimated Hrs Per Day: .25 hour per day Patient and/or Family Agrees t: Yes Safety Risks/Education Patient Education: Correct Positioning, Safety Issues Teaching Recipient: Patient Teaching Methods: Demonstration, Discussion Response to Teaching: Reinforcement Needed Time/GCodes Time In: 1105 Time Out: 1115 Total Billed Treatment Time: 10 Total Billed Treatment 1 visit EX CONOR ANGEL PT Jul 07, 2019 11:20
--- NOTE | 2019-07-07 12:01 | Occupational Ther Daily Note ---
OT Current Status-Daily Note Subjective RN states pt okay for therapy, but had a rough night. Pt in bed, states she is tired today, but agrees to bed level treatment. ADL-Treatment Pt completed grooming tasks while in bed with HOB raised. Pt washed face with set up. Combed hair with minimal assist to reach back of head. Pt used mouth swab to complete oral care with set up. Pt state she feels "shaky" today, but is able to complete UE tasks with increased time. Pt resting in bed with needs met after session. Therapy Code Descriptions/Definitions Functional Gilmer Measure: 0=Not Assessed/NA 4=Minimal Assistance 1=Total Assistance 5=Supervision or Setup 2=Maximal Assistance 6=Modified Gilmer 3=Moderate Assistance 7=Complete IndependenceSCALE: Activities may be completed with or without assistive devices. 1-Kccnznccky-ktntlvs completes the activity by him/herself with no assistance from a helper. 5-Set-up or Clean-up Assistance-helper sets up or cleans up; patient completes a ctivity. Fenton assists only prior to or following the activity. 4-Supervision or Touching Assistance-helper provides verbal cues and/or touching/steadying and/or contact guard assistance as patient completes activity. Assistance may be provided throughout the activity or intermittently. 3-Partial/Moderate Assistance-helper does LESS THAN HALF the effort. Fenton lifts, holds or supports trunk or limbs, but provides less than half the effort. 2-Substantial/Maximal Assistance-helper does MORE THAN HALF the effort. Fenton lifts or holds trunk or limbs and provides more than half the effort. 9-Ayurcpksi-vjwzho does ALL the effort. Patient does none of the effort to complete the activity. Or, the assistance of 2 or more helpers is required for the patient to complete the activity. If activity was not attempted, code reason: 7-Patient Refused. 9-Not Applicable-not attempted and the patient did not perform the activity before the current illness, exacerbation or injury. 10-Not Attempted due to Environmental Limitations-(lack of equipment, weather restraints, etc.). 88-Not Attempted due to Medical Conditions or Safety Concerns. Oral Hygiene (QC): 5 OT [facility] Goals [facility] Goals Time Frame: Jul 20, 2019 Eating (QC): 6 Oral Hygiene (QC): 6 Toileting Hygiene (QC): 6 Shower/Bathe Self (QC): 5 Upper Body Dressing (QC): 5 Lower Body Dressing (QC): 5 On/Off Footwear (QC): 5 Additional Goals: 1-Demonstrate ADL Tasks, 2-Verbalize Understanding, 3- ImproveStrength/Abdiel 1=Demonstrate adherence to instructed precautions during ADL tasks. 2=Patient will verbalize/demonstrate understanding of assistive devices/modifications for ADL. 3=Patient will improve strength/tolerance for activity to enable patient to perform ADL's. OT Education/Plan Discharge Recommendations Plan/Recommendations: Continue POC Treatment Plan/Plan of Care Patient would benefit from OT for education, treatment and training to promote independence in ADL's, mobility, safety and/or upper extremity function for ADL's. Plan of Care: ADL Retraining, Functional Mobility, UE Funct Exercise/Act Treatment Duration: Jul 20, 2019 Frequency: 5 times per week Estimated Hrs Per Day: .5 hour per day Agreement: Yes Rehab Potential: Good Time/GCodes Start Time: 11:47 Stop Time: 11:57 Total Time Billed (hr/min): 10 Billed Treatment Time 1 visit, ADL(10minutes) NANDO LOAIZA OT Jul 07, 2019 12:01
[2019-07-07] MEDS: diphenhydrAMINE 25 MG TAB (BENADRYL) PO PRN ×2 (13:42→19:44)
[2019-07-07] MEDS ORDERED: SERTRALINE 50 MG (ZOLOFT) TABLET PO SCH ×2 (16:00→21:00)
[2019-07-07] MEDS ORDERED: SERTRALINE 50 MG (ZOLOFT) TABLET PO NR (16:00)
[2019-07-07] MEDS: RIVAROXABAN 20 MG TABLET (XARELTO) PO SCH (18:35)
[2019-07-07] MEDS ORDERED: LACTATED RINGERS 1,000 ML IV SCH (19:00)
[2019-07-07] MEDS ORDERED: CEPHALEXIN 250 MG (KEFLEX) CAP PO SCH (21:00)
[2019-07-08] MEDS: MELATONIN 3 MG TABLET PO PRN ×2 (00:02→19:50)
[2019-07-08] MEDS: RT-ALBUTEROL/IPRATROPIUM 3 ML (DUONEB) VIAL INH SCH ×7 (02:39→22:29)
[2019-07-08] MEDS: ONDANSETRON 4 MG/2 ML (SDV) Z0FRAN IVP PRN ×3 (02:48→18:22)
[2019-07-08 04:00] VITALS: BP 115/65
[2019-07-08] MEDS: LEVOTHYROXINE 25 MCG (LEVOTHROID) TAB PO SCH (04:30)
[2019-07-08 05:56] LABS: BASOPHILS % (AUTO) 0 % (0-10); EOSINOPHILS # (AUTO) 0.3 10^3/uL (0.0-0.3); EOSINOPHILS % (AUTO) 3 % (0-10); HEMATOCRIT 30 % (35-52); LYMPHOCYTES # (AUTO) 0.6 X 10^3 (1.0-4.0); LYMPHOCYTES % (AUTO) 6 % (12-44); MEAN CORPUSCULAR HEMOGLOBIN 30 PG (25-34); MEAN CORPUSCULAR HGB CONC 33 G/DL (32-36); MEAN CORPUSCULAR VOLUME 89 FL (80-99); MEAN PLATELET VOLUME 9.5 FL (7.4-10.4); MONOCYTES # (AUTO) 0.9 X 10^3 (0.0-1.0); MONOCYTES % (AUTO) 8 % (0-12); NEUTROPHILS # (AUTO) 8.6 X 10^3 (1.8-7.8); NEUTROPHILS % (AUTO) 83 % (42-75); PLATELET COUNT 229 10^3/uL (130-400); RED CELL DISTRIBUTION WIDTH 14.2 % (10.0-14.5); WHITE BLOOD COUNT 10.3 10^3/uL (4.3-11.0)
[2019-07-08] MEDS: SUCRALFATE 1 GM (CARAFATE) TAB PO SCH ×4 (06:07→19:50)
[2019-07-08 06:22] LABS: ALBUMIN 2.8 GM/DL (3.2-4.5); BILIRUBIN,TOTAL 0.7 MG/DL (0.1-1.0); CALCIUM 8.1 MG/DL (8.5-10.1); CREATININE SERUM 1.39 MG/DL (0.60-1.30); POTASSIUM 3.6 MMOL/L (3.6-5.0); TOTAL PROTEIN 5.3 GM/DL (6.4-8.2)
[2019-07-08 08:00] VITALS: BP 148/77
[2019-07-08] MEDS: PANTOPRAZOLE 40 MG (PROTONIX) TAB PO SCH (08:18)
[2019-07-08] MEDS: ASPIRIN E.C. 81 MG (ECOTRIN) TAB PO SCH (08:18)
[2019-07-08] MEDS: CLOPIDOGREL 75 MG (PLAVIX) TABLET PO SCH (08:18)
[2019-07-08] MEDS: ISOSORBIDE MONONITRATE 30 MG (IMDUR) TAB PO SCH (08:18)
[2019-07-08] MEDS: ONDANSETRON 4 MG (ZOFRAN) ORAL DISSOLVE TAB PO PRN (08:21)
--- NOTE | 2019-07-08 09:30 | Cardiology Progress Note ---
Subjective Date Seen by Provider: Jul 08, 2019 Time Seen by Provider: 09:21 Subjective/Events-last exam Patient is laying down in bed, feeling better today, mild shortness of breath Review of Systems General: No Chills, No Night Sweats, No Fatigue, No Malaise, No Appetite, No Other HEENT: No Head Aches, No Visual Changes, No Eye Pain, No Ear Pain, No Dysphasia, No Sinus Congestion, No Post Nasal Drip, No Sore Throat, No Other Pulmonary: Dyspnea; No Cough, No Pleuritic Chest Pain, No Other Cardiovascular: No: Chest Pain, Palpitations, Orthopnea, Paroxysmal Noc. Dyspnea, Edema, Lt Headedness, Other Objective-Cardiology Exam Last Set of Vital Signs Vital Signs 07/06/19 07/08/19 11:48 08:00 Temp 36.6 Pulse 76 Resp 20 B/P (MAP) 148/77 (100) Pulse Ox 95 O2 Delivery Nasal Cannula O2 Flow Rate 1.00 FiO2 28 Capillary Refill : Less Than 3 Seconds I&O Intake and Output 07/08/19 00:00 Intake Total 1890 ml Output Total 950 ml Balance 940 ml Intake Oral 1890 ml Output Urine Total 950 ml General: Alert, Oriented X3, Cooperative HEENT: Atraumatic, PERRLA Neck: Supple, No JVD, No Thyromegaly Lungs: Clear to Auscultation, Normal Air Movement Heart: Regular Rate, Normal S1, Normal S2, No Murmurs Abdomen: Normal Bowel Sounds, Soft, No Tenderness, No Hepatosplenomegaly, No Masses Extremities: No Clubbing, No Cyanosis, No Edema, Normal Pulses, No Tenderness/Swelling Skin: No Rashes, No Breakdown, No Significant Lesion Neuro: Normal Gait, Normal Speech, Strength at 5/5 X4 Ext, Normal Tone, Sensation Intact Psych/Mental Status: Mental Status NL, Mood NL Results Lab Laboratory Tests 07/08/19 05:33 A/P-Cardiology Admission Diagnosis Non-ST elevation myocardial infarction Coronary artery disease Hypertension Hyperlipidemia Assessment/Plan Chest pain, mild elevation in troponin, diffuse abdominal pain, non-ST elevation myocardial infarction due to small vessel disease. Medical therapy is recommended. Abdominal pain, nausea and vomiting, diffuse discomfort, better after discontinuation of amiodarone and Lipitor, I started her on Carafate. Anxiety, depression, feeling better today. Continue on Zoloft and monitor Elevated BNP, echocardiogram showed left ventricular hypertrophy with hyperactive ventricle, gradient across the left ventricular outflow tract probably due to hypovolemia, chronic left ventricular diastolic dysfunction, hypertensive heart disease. Coronary artery disease, history of multiple interventions in the past, had a total of 3 stents. Underwent cardiac catheterization on November 15, 2018 revealing moderate stenosis at the ostium of the right coronary artery, heavily calcified. 2 stents in the mid right coronary artery are patent with small vessel disease distally. Calcified left main coronary artery is moderate stenosis, nonobstructive disease. Patent stents in the mid circumflex artery with no obstructive disease, mild disease in LAD. Underwent cardiac catheterization on June 29, 2019 with balloon angioplasty to the mid right coronary artery and stenting to the ostium of the right coronary artery using Maryann 3 x 15 mm stent expanded to 3.25 mm with excellent results, still have moderate stenosis at the mid left main, mid LAD and mid circumflex artery with small vessel disease. Persistent atrial fibrillation, maintained on Xarelto, I will stop amiodarone at this time and monitor tolerance and response High risk of bleed, patient is maintained on aspirin, Plavix and Xarelto, I will consider stopping Xarelto if needed Peripheral edema, better at this time. Upper respiratory infection, recently diagnosed and treated with steroids as outpatient. Continue to monitor. Hypertension, continue on home medication Hyperlipidemia, continue holding Lipitor. Monitor tolerance and response Carotid artery stenosis, mild bilateral nonobstructive disease per carotid duplex done December 2018 Prediabetes Clinical Quality Measures DVT/VTE Risk/Contraindication: Risk Factor Score Per Nursin RFS Level Per Nursing on Admit: 3=High GEOFF THOMSON MD Jul 08, 2019 09:30
[2019-07-08] MEDS: RT-ADVAIR HFA 45/21 MCG PER PUFF IH SCH ×2 (10:18→19:15)
--- NOTE | 2019-07-08 10:25 | Progress Note - Hospitalist ---
Subjective HPI/CC On Admission Date Seen by Provider: Jul 08, 2019 Time Seen by Provider: 10:45 CC: Chest pain with nausea and weakness HPI: This is an 83yoWF clinic patient of SARA Cantu with Dr Ojeda who presented to the ER after assessed by her PCP and due to declined status she wassent for full evaluation. I did reviewed all of [facility] records listed below after daughter told me she was at [facility] for 2 weeks then DC then admitted to [facility] and underwent stent placement but then DC and became quite declined and had 2 ER visits for non-specific complaints. Dr Reyez has been consulted who placed the stent last week and will evaluate from the cardiac standpoint. I assessed the patient to be quite declined and appears to be declining towards complete debility and considering the age is 83yo it is quite possible this is the rapid spiral of her health she had previously so will do everything we can to help her reverse the direction she is going in her decline. DC note from [facility]: Michaela Hinton a 83 y.o.femalewho was admitted to [facility] on 06/10/2019for evaluation of A. fib with RVR, acute on chronic diastolic heart failure and acute respiratory failure with hypoxia. She was also noted to have LILO initially. At the time of admission, she was diuresed and started on Cardi zem drip and then transferred to TCU/ICU. During the admission metoprolol was discontinued due to QT prolongation. As she was transitioned off Cardizem drip, she was started on amiodarone and oral Cardizem for better heart rate control. She progressed well during the admission and we received assistance from cardiology during it. She was then discharged on 06/21 and was doing well. Sotalol and Micardis was discontinued by cardiology. She was started on amiodarone, digoxin and diltiazem. On the day of discharge, she was complaining of cough. Chest x-ray negative. On physical exam she had minimal expiratory wheezing. No history of COPD or smoking. She was given a prescription for alb uterol and Advair. For cough she was given a prescription of Tessalon Perles and Medrol Dosepak. At the time of discharge she was doing well, at her baseline mentation, had no cardiopulmonary symptoms except slight cough and was ambulating at baseline. She was discharged with home health. She was recommended to follow-up with PCP, cardiology and nephrology clinic in 7 to 10 days and repeat CBC and CMP to monitor any abnormalities of present at the time of discharge. All the questions were answered to her and her family satisfaction. They were extremely pleased with the care. She was also discharged with a 4 leg walker. Progress note from Evi: 1. Acute on chronic diastolic heart failure: 2. Acute respiratory failure with hypoxia: a. Echocardiogram remarkable for moderate concentric left ventricular hypertrophy with moderately dilated left atrium. EF 69%. proBNP 5761 on admission. b. No history of asthma or COPD. Patient with a lot of wheezing. On 2 L nasal cannula oxygen. Will need outpatient follow-up with pulmonology for PFT. c. Start Lasix 20 mg daily. Continue nebulizer treatment. 3. Atrial fibrillation with RVR: Narciso vas5.improved heart rate. Continue digoxin, amiodarone, and diltiazem. Continue Xarelto. Cardiology on board. 4. Coronary artery disease: Status post PTCA with stent to the RCA. Stress test this admission was unremarkable. Continue Lipitor 5. Hypertension:Controlled with Cardizem. Other antihypertensive held given borderline blood pressures. 6. Chronic kidney disease: Creatinine around 1.36 in June of last year. Creatinine has remained stable .Avoid nephrotoxic agents. 7. Hypothyroidism: Continue Synthroid 8. Obesity:Body mass index is 36.73 kg/m.Due to calorie excess. Lifestyle modification with diet. Subjective/Events-last exam Patient feeling better no chest discomfort this morning with no dyspnea at rest. She was off of her oxygen with an O2 saturation level of 94-95 percent and reports that her energy level is improved. She was getting ready to do some ambulation. She denied confusion last night although he did not have a chance yet to talk with nursing staff to see if they concur with this. She had some nausea this morning but resolved with Zofran. She denies any palpitation or heart racing sensation. Objective Exam Vital Signs Vital Signs Date Time Temp Pulse Resp B/P (MAP) Pulse Ox O2 Delivery O2 Flow Rate FiO2 07/08/19 10:18 91 Room Air 07/08/19 08:00 1.00 07/08/19 08:00 36.6 76 20 148/77 (100) 07/06/19 11:48 28 Capillary Refill : Less Than 3 Seconds General Appearance: Anxious, Obese Respiratory: Chest Non Tender, Lungs Clear, Normal Breath Sounds, No Accessory Muscle Use, No Respiratory Distress Cardiovascular: Systolic Murmur (1-2/6 heard best at the second right intercostal space.), Irregularly Irregular Gastrointestinal: Normal Bowel Sounds, No Organomegaly, No Pulsatile Mass, Non Tender, Soft Extremity: Other (Trace pedal and pretibial edema with bilateral knee-high compression garments on.) Neurologic/Psychiatric: Alert Results/Procedures Lab Laboratory Tests 07/08/19 05:33 Patient resulted labs reviewed. Assessment/Plan Assessment and Plan Assess & Plan/Chief Complaint Chest pain, mild elevation in troponin, diffuse abdominal pain, non-ST elevation myocardial infarction, continue on aspirin and Plavix and Xarelto and evaluate EKG, start nitroglycerin as needed. Patient feeling better with less chest discomfort Abdominal pain, nausea and vomiting, diffuse discomfort, better after discontinuation of amiodarone and Lipitor, I started her on Carafate. Anxiety, depression, Zoloft started yesterday patient thus far feeling better today. Continue to monitor. Elevated BNP, echocardiogram showed left ventricular hypertrophy with hyperactive ventricle, gradient across the left ventricular outflow tract probably due to hypovolemia, chronic left ventricular diastolic dysfunction, hypertensive heart disease. Coronary artery disease, history of multiple interventions in the past, had a total of 3 stents. Underwent cardiac catheterization on November 15, 2018 revealing moderate stenosis at the ostium of the right coronary artery, heavily calcified. 2 stents in the mid right coronary artery are patent with small vessel disease distally. Calcified left main coronary artery is moderate stenosis, n onobstructive disease. Patent stents in the mid circumflex artery with no obstructive disease, mild disease in LAD. Underwent cardiac catheterization on June 29, 2019 with balloon angioplasty to the mid right coronary artery and stenting to the ostium of the right coronary artery using Maryann 3 x 15 mm stent expanded to 3.25 mm with excellent results, still have moderate stenosis at the mid left main, mid LAD and mid circumflex artery with small vessel disease. Persistent atrial fibrillation, maintained on Xarelto, I will stop amiodarone at this time and monitor tolerance and response High risk of bleed, patient is maintained on aspirin, Plavix and Xarelto, I will consider stopping Xarelto if needed Peripheral edema, better at this time. Upper respiratory infection, recently diagnosed and treated with steroids as outpatient. Continue to monitor. Hypertension, continue on home medication Hyperlipidemia, continue holding Lipitor. Monitor tolerance and response Carotid artery stenosis, mild bilateral nonobstructive disease per carotid duplex done December 2018 Prediabetes Clinical Quality Measures DVT/VTE Risk/Contraindication: Risk Factor Score Per Nursin RFS Level Per Nursing on Admit: 3=High CHEKO ADAMS MD Jul 08, 2019 10:25
--- NOTE | 2019-07-08 10:44 | NUR ---
Pt up working with PT, ambulating in chaney with walker
--- NOTE | 2019-07-08 10:50 | Physical Therapy Daily Note ---
PT Daily Note-Current Subjective Patient in recliner pre tx, agrees to PT, has no complaints of pain. Appearance Patient in recliner post tx with nurse call, phone, tray, legs elevated with pillow support for heel lift. Mental Status Patient Orientation: Person, Place, Situation Attachments: Adam Catheter Transfers SCALE: Activities may be completed with or without assistive devices. 2-Qbzhfncoum-dulcblg completes the activity by him/herself with no assistance from a helper. 5-Set-up or Clean-up Assistance-helper sets up or cleans up; patient completes activity. Haines assists only prior to or following the activity. 4-Supervision or Touching Assistance-helper provides verbal cues and/or touching/steadying and/or contact guard assistance as patient completes activity. Assistance may be provided throughout the activity or intermittently. 3-Partial/Moderate Assistance-helper does LESS THAN HALF the effort. Haines lifts, holds or supports trunk or limbs, but provides less than half the effort. 2-Substantial/Maximal Assistance-helper does MORE THAN HALF the effort. Haines lifts or holds trunk or limbs and provides more than half the effort. 8-Edxmeptdf-lrchil does ALL the effort. Patient does none of the effort to complete the activity. Or, the assistance of 2 or more helpers is required for the patient to complete the activity. If activity was not attempted, code reason: 7-Patient Refused. 9-Not Applicable-not attempted and the patient did not perform the activity before the current illness, exacerbation or injury. 10-Not Attempted due to Environmental Limitations-(lack of equipment, weather restraints, etc.). 88-Not Attempted due to Medical Conditions or Safety Concerns. Sit to Stand (QC): 4 Chair/Xcm-eq-Lqsvw Xfer(QC): 4 CGA Gait Training Distance: 100' Walk 10 feet (QC): 4 Walk 50 ft with 2 Turns(QC): 4 Gait Persons Needed: 1 Gait Assistive Device: FWW CGA, slow but steady ambulation, SOB, O2 94% and 66bpm pre ambulation, 94% and 86bpm post ambulation. Treatments ambulation Assessment Current Status: Fair Progress improved ambulation and endurance, no drop in O2 even without O2 through nasal canula PT Care Home Goals Electrical Experimental Mechanic Goals PT Electrical Experimental Mechanic Goals Time Frame: Jul 13, 2019 Roll Left & Right (QC): 6 Sit to Lying (QC): 6 Lying-Sitting on Side/Bed(QC): 6 Sit to Stand (QC): 6 Chair/Ovl-dd-Mmdei Xfer(QC): 6 Toilet Transfer (QC): 6 Does the Patient Walk: Yes Walk 10 feet (QC): 6 Walk 50ft with 2 Turns (QC): 6 Walk 150 ft (QC): 6 PT Plan Problem List Problem List: Activity Tolerance, Functional Strength, Safety, Balance, Gait, Transfer, Bed Mobility Treatment/Plan Treatment Plan: Continue Plan of Care Treatment Plan: Bed Mobility, Education, Functional Activity Abdiel, Functional Strength, Gait, Safety, Therapeutic Exercise, Transfers Treatment Duration: Jul 14, 2019 Frequency: 6 times per week Estimated Hrs Per Day: .25 hour per day Patient and/or Family Agrees t: Yes Safety Risks/Education Patient Education: Gait Training, Transfer Techniques, Correct Positioning, Safety Issues Teaching Recipient: Patient Teaching Methods: Demonstration, Discussion Response to Teaching: Reinforcement Needed Time/GCodes Time In: 1035 Time Out: 1046 Total Billed Treatment Time: 11 Total Billed Treatment 1 visit GT CONOR UNGER PT Jul 08, 2019 10:50
[2019-07-08 11:37] VITALS: BP 132/67
--- NOTE | 2019-07-08 16:00 | NUR ---
RT went to do O2 walk and pt's heart rate was 122 and looked like pt was possibly going into a fib again. RN notified and walk is on hold at this time.
[2019-07-08 16:47] VITALS: BP 149/63
[2019-07-08] MEDS: RIVAROXABAN 20 MG TABLET (XARELTO) PO SCH (17:07)
[2019-07-08 19:42] VITALS: BP 149/61
[2019-07-08] MEDS: SERTRALINE 50 MG (ZOLOFT) TABLET PO SCH (19:50)
[2019-07-09] VITALS: BP 154/68
[2019-07-09] MEDS: RT-ALBUTEROL/IPRATROPIUM 3 ML (DUONEB) VIAL INH SCH ×5 (03:01→21:58)
[2019-07-09 04:00] VITALS: BP 148/68
[2019-07-09] MEDS: SUCRALFATE 1 GM (CARAFATE) TAB PO SCH ×4 (05:23→20:16)
[2019-07-09] MEDS: LEVOTHYROXINE 25 MCG (LEVOTHROID) TAB PO SCH (05:23)
[2019-07-09 07:31] VITALS: BP 146/70
[2019-07-09] MEDS: PANTOPRAZOLE 40 MG (PROTONIX) TAB PO SCH (08:40)
[2019-07-09] MEDS: ASPIRIN E.C. 81 MG (ECOTRIN) TAB PO SCH (08:40)
[2019-07-09] MEDS: ISOSORBIDE MONONITRATE 30 MG (IMDUR) TAB PO SCH (08:40)
[2019-07-09] MEDS: CLOPIDOGREL 75 MG (PLAVIX) TABLET PO SCH (08:40)
[2019-07-09] MEDS: ONDANSETRON 4 MG/2 ML (SDV) Z0FRAN IVP PRN (08:41)
--- NOTE | 2019-07-09 09:30 | Cardiology Progress Note ---
Subjective Date Seen by Provider: Jul 09, 2019 Time Seen by Provider: 09:28 Subjective/Events-last exam Patient is laying down in bed, had mild nausea. Overall reporting improvement in her symptoms Review of Systems General: No Chills, No Night Sweats; Fatigue, Malaise; No Appetite, No Other HEENT: No Head Aches, No Visual Changes, No Eye Pain, No Ear Pain, No Dysphasia, No Sinus Congestion, No Post Nasal Drip, No Sore Throat, No Other Pulmonary: No Dyspnea, No Cough, No Pleuritic Chest Pain, No Other Cardiovascular: No: Chest Pain, Palpitations, Orthopnea, Paroxysmal Noc. Dyspnea, Edema, Lt Headedness, Other Objective-Cardiology Exam Last Set of Vital Signs Vital Signs 07/06/19 07/09/19 07/09/19 11:48 07:31 07:44 Temp 36.8 Pulse 71 Resp 20 B/P (MAP) 146/70 (95) Pulse Ox 97 O2 Delivery Nasal Cannula O2 Flow Rate 1.00 FiO2 28 Capillary Refill : Less Than 3 Seconds I&O Intake and Output 07/09/19 00:00 Intake Total 1175 ml Output Total 425 ml Balance 750 ml Intake Oral 1175 ml Output Urine Total 425 ml General: Alert, Oriented X3, Cooperative HEENT: Atraumatic, PERRLA Neck: Supple, No JVD, No Thyromegaly Lungs: Clear to Auscultation, Normal Air Movement Heart: Regular Rate, Normal S1, Normal S2, No Murmurs Abdomen: Normal Bowel Sounds, Soft, No Tenderness, No Hepatosplenomegaly, No Masses Extremities: No Clubbing, No Cyanosis, No Edema, Normal Pulses, No Tenderness/Swelling Skin: No Rashes, No Breakdown, No Significant Lesion Neuro: Normal Gait, Normal Speech, Strength at 5/5 X4 Ext, Normal Tone, Sensation Intact Psych/Mental Status: Mental Status NL, Mood NL A/P-Cardiology Admission Diagnosis Non-ST elevation myocardial infarction Coronary artery disease Hypertension Hyperlipidemia Assessment/Plan Chest pain, mild elevation in troponin, diffuse abdominal pain, non-ST elevation myocardial infarction due to small vessel disease. Medical therapy is recommended. Abdominal pain, nausea and vomiting, diffuse discomfort, better after discontinuation of amiodarone and Lipitor, feeling better at this time. Continue to monitor Anxiety, depression, feeling better today. Continue on Zoloft and monitor Elevated BNP, echocardiogram showed left ventricular hypertrophy with hyperactive ventricle, gradient across the left ventricular outflow tract probably due to hypovolemia, chronic left ventricular diastolic dysfunction, hypertensive heart disease. Coronary artery disease, history of multiple interventions in the past, had a total of 3 stents. Underwent cardiac catheterization on November 15, 2018 revealing moderate stenosis at the ostium of the right coronary artery, heavily calcified. 2 stents in the mid right coronary artery are patent with small vessel disease distally. Calcified left main coronary artery is moderate stenosis, nonobstructive disease. Patent stents in the mid circumflex artery with no obstructive disease, mild disease in LAD. Underwent cardiac catheterization on June 29, 2019 with balloon angioplasty to the mid right coronary artery and stenting to the ostium of the right coronary artery using Maryann 3 x 15 mm stent expanded to 3.25 mm with excellent results, still have moderate stenosis at the mid left main, mid LAD and mid circumflex artery with small vessel disease. Persistent atrial fibrillation, maintained on Xarelto, I will stop amiodarone at this time and monitor tolerance and response High risk of bleed, patient is maintained on aspirin, Plavix and Xarelto, I will consider stopping Xarelto if needed Peripheral edema, better at this time. Upper respiratory infection, recently diagnosed and treated with steroids as outpatient. Continue to monitor. Hypertension, continue on home medication Hyperlipidemia, continue holding Lipitor. Monitor tolerance and response Carotid artery stenosis, mild bilateral nonobstructive disease per carotid duplex done December 2018 Prediabetes Clinical Quality Measures DVT/VTE Risk/Contraindication: Risk Factor Score Per Nursin RFS Level Per Nursing on Admit: 3=High GEOFF THOMSON MD Jul 09, 2019 09:30
[2019-07-09 11:11] VITALS: BP 167/68
--- NOTE | 2019-07-09 11:20 | Progress Note - Hospitalist ---
Subjective HPI/CC On Admission Date Seen by Provider: Jul 09, 2019 Time Seen by Provider: 10:30 CC: Chest pain with nausea and weakness HPI: This is an 83yoWF clinic patient of SARA Cantu with Dr jOeda who presented to the ER after assessed by her PCP and due to declined status she wassent for full evaluation. I did reviewed all of [facility] records listed below after daughter told me she was at [facility] for 2 weeks then DC then admitted to [facility] and underwent stent placement but then DC and became quite declined and had 2 ER visits for non-specific complaints. Dr Reyez has been consulted who placed the stent last week and will evaluate from the cardiac standpoint. I assessed the patient to be quite declined and appears to be declining towards complete debility and considering the age is 83yo it is quite possible this is the rapid spiral of her health she had previously so will do everything we can to help her reverse the direction she is going in her decline. DC note from [facility]: Michaela Hinton a 83 y.o.femalewho was admitted to [facility] on 06/10/2019for evaluation of A. fib with RVR, acute on chronic diastolic heart failure and acute respiratory failure with hypoxia. She was also noted to have LILO initially. At the time of admission, she was diuresed and started on Cardizem drip and then transferred to TCU/ICU. During the admission metoprolol was discontinued due to QT prolongation. As she was transitioned off Cardizem drip, she was started on amiodarone and oral Cardizem for better heart rate control. She progressed well during the admission and we received assistance from cardiology during it. She was then discharged on 06/21 and was doing well. Sotalol and Micardis was discontinued by cardiology. She was started on amiodarone, digoxin and diltiazem. On the day of discharge, she was complaining of cough. Chest x-ray negative. On physical exam she had minimal expiratory wheezing. No history of COPD or smoking. She was given a prescription for albuterol and Advair. For cough she was given a prescription of Tessalon Perles and Medrol Dosepak. At the time of discharge she was doing well, at her baseline mentation, had no cardiopulmonary symptoms except slight cough and was ambulating at baseline. She was discharged with home health. She was recommended to follow-up with PCP, cardiology and nephrology clinic in 7 to 10 days and repeat CBC and CMP to monitor any abnormalities of present at the time of discharge. All the questions were answered to her and her family satisfaction. They were extremely pleased with the care. She was also discharged with a 4 leg walker. Progress note from Evi: 1. Acute on chronic diastolic heart failure: 2. Acute respiratory failure with hypoxia: a. Echocardiogram remarkable for moderate concentric left ventricular hypertrophy with moderately dilated left atrium. EF 69%. proBNP 5761 on admission. b. No history of asthma or COPD. Patient with a lot of wheezing. On 2 L nasal cannula oxygen. Will need outpatient follow-up with pulmonology for PFT. c. Start Lasix 20 mg daily. Continue nebulizer treatment. 3. Atrial fibrillation with RVR: Narciso vas5.improved heart rate. Continue digoxin, amiodarone, and diltiazem. Continue Xarelto. Cardiology on board. 4. Coronary artery disease: Status post PTCA with stent to the RCA. Stress test this admission was unremarkable. Continue Lipitor 5. Hypertension:Controlled with Cardizem. Other antihypertensive held given borderline blood pressures. 6. Chronic kidney disease: Creatinine around 1.36 in June of last year. Creatinine has remained stable .Avoid nephrotoxic agents. 7. Hypothyroidism: Continue Synthroid 8. Obesity:Body mass index is 36.73 kg/m.Due to calorie excess. Lifestyle modification with diet. Subjective/Events-last exam patient still having some intermittent nausea but no vomiting and denies abdominal pain or chest pain. Tolerating for the most part low sodium diet. She still has some dyspnea on exertion denying dyspnea at rest. Objective Exam Vital Signs Vital Signs Date Time Temp Pulse Resp B/P (MAP) Pulse Ox O2 Delivery O2 Flow Rate FiO2 07/09/19 11:11 37.1 76 20 167/68 (101) 97 High Flow N/C 2.00 07/06/19 11:48 28 Capillary Refill : Less Than 3 Seconds General Appearance: No Apparent Distress, Chronically ill, Obese Cardiovascular: No JVD, No Murmur, Irregularly Irregular Gastrointestinal: Normal Bowel Sounds, No Organomegaly, No Pulsatile Mass, Non Tender, Soft Results/Procedures Lab Patient resulted labs reviewed. Assessment/Plan Assessment and Plan Assess & Plan/Chief Complaint Chest pain, mild elevation in troponin, diffuse abdominal pain, non-ST elevation myocardial infarction, continue on aspirin and Plavix and Xarelto and evaluate EKG, start nitroglycerin as needed. Patient feeling better with less chest discomfort no evidence for bleeding. She is still quite weak we'll need to get physical therapy's input on Wednesday to see whether or not they feel she would be able to tolerate acute rehabilitation transfer. Abdominal pain, nausea and vomiting, diffuse discomfort, better after discontinuation of amiodarone and Lipitor, I started her on Carafate. Anxiety, depression, Zoloft started yesterday patient thus far feeling better today. Continue to monitor. Elevated BNP, echocardiogram showed left ventricular hypertrophy with hyperactive ventricle, gradient across the left ventricular outflow tract probably due to hypovolemia, chronic left ventricular diastolic dysfunction, hypertensive heart disease. Coronary artery disease, history of multiple interventions in the past, had a total of 3 stents. Underwent cardiac catheterization on November 15, 2018 revealing moderate stenosis at the ostium of the right coronary artery, heavily calcified. 2 stents in the mid right coronary artery are patent with small vessel disease distally. Calcified left main coronary artery is moderate stenosis, nonobstructive disease. Patent stents in the mid circumflex artery with no obstructive disease, mild disease in LAD. Underwent cardiac catheterization on June 29, 2019 with balloon angioplasty to the mid right coronary artery and stenting to the ostium of the right coronary artery using Maryann 3 x 15 mm stent expanded to 3.25 mm with excellent results, still have moderate stenosis at the mid left main, mid LAD and mid circumflex artery with small vessel disease. Persistent atrial fibrillation, maintained on Xarelto, I will stop amiodarone at this time and monitor tolerance and response High risk of bleed, patient is maintained on aspirin, Plavix and Xarelto, I will consider stopping Xarelto if needed Peripheral edema, better at this time. Upper respiratory infection, recently diagnosed and treated with steroids as outpatient. Continue to monitor. Hypertension, continue on home medication Hyperlipidemia, continue holding Lipitor. Monitor tolerance and response Carotid artery stenosis, mild bilateral nonobstructive disease per carotid duplex done December 2018 Prediabetes Clinical Quality Measures DVT/VTE Risk/Contraindication: Risk Factor Score Per Nursin RFS Level Per Nursing on Admit: 3=High CHEKO ADAMS MD Jul 09, 2019 11:20
[2019-07-09] MEDS: RT-ADVAIR HFA 45/21 MCG PER PUFF IH SCH ×2 (12:07→18:36)
[2019-07-09 16:20] VITALS: BP 169/72
[2019-07-09] MEDS: RIVAROXABAN 20 MG TABLET (XARELTO) PO SCH (17:00)
[2019-07-09 19:41] VITALS: BP 167/73
[2019-07-09] MEDS: MELATONIN 3 MG TABLET PO PRN (20:16)
[2019-07-09] MEDS: SERTRALINE 50 MG (ZOLOFT) TABLET PO SCH (20:16)
[2019-07-10] VITALS (7 sets, daily range): BP systolic 126–159; BP diastolic 62–83
[2019-07-10] MEDS: RT-ALBUTEROL/IPRATROPIUM 3 ML (DUONEB) VIAL INH SCH ×6 (02:09→21:33)
[2019-07-10] MEDS: LEVOTHYROXINE 25 MCG (LEVOTHROID) TAB PO SCH (06:03)
[2019-07-10] MEDS: SUCRALFATE 1 GM (CARAFATE) TAB PO SCH ×4 (06:03→21:57)
[2019-07-10 06:33] LABS: HEMOGLOBIN 10.1 G/DL (11.5-16.0); MEAN PLATELET VOLUME 9.6 FL (7.4-10.4); WHITE BLOOD COUNT 6.1 10^3/uL (4.3-11.0)
[2019-07-10] MEDS: RT-ADVAIR HFA 45/21 MCG PER PUFF IH SCH ×2 (06:42→18:59)
[2019-07-10 06:56] LABS: ALBUMIN 2.6 GM/DL (3.2-4.5); BILIRUBIN,TOTAL 0.6 MG/DL (0.1-1.0); CALCIUM 8.3 MG/DL (8.5-10.1); CREATININE SERUM 1.05 MG/DL (0.60-1.30); MAGNESIUM 1.8 MG/DL (1.6-2.4); POTASSIUM 3.6 MMOL/L (3.6-5.0); TOTAL PROTEIN 5.1 GM/DL (6.4-8.2)
[2019-07-10] MEDS: ASPIRIN E.C. 81 MG (ECOTRIN) TAB PO SCH (09:26)
[2019-07-10] MEDS: ISOSORBIDE MONONITRATE 30 MG (IMDUR) TAB PO SCH (09:26)
[2019-07-10] MEDS: PANTOPRAZOLE 40 MG (PROTONIX) TAB PO SCH (09:26)
[2019-07-10] MEDS: CLOPIDOGREL 75 MG (PLAVIX) TABLET PO SCH (09:26)
--- NOTE | 2019-07-10 09:27 | Cardiology Progress Note ---
Subjective Date Seen by Provider: Jul 10, 2019 Time Seen by Provider: 09:25 Subjective/Events-last exam Patient is sitting up in bed, states nausea has improved significantly but still has loss of appetite. Denies any chest pain or dyspnea. Review of Systems General: No Chills, No Night Sweats; Fatigue; No Malaise, No Appetite, No Other HEENT: No Head Aches, No Visual Changes, No Eye Pain, No Ear Pain, No Dysphasia, No Sinus Congestion, No Post Nasal Drip, No Sore Throat, No Other Pulmonary: No Dyspnea, No Cough, No Pleuritic Chest Pain, No Other Cardiovascular: No: Chest Pain, Palpitations, Orthopnea, Paroxysmal Noc. Dyspnea, Edema, Lt Headedness, Other Objective-Cardiology Exam Last Set of Vital Signs Vital Signs 07/06/19 07/10/19 11:48 08:00 Temp 36.6 Pulse 78 Resp 18 B/P (MAP) 159/73 (101) Pulse Ox 96 O2 Delivery Nasal Cannula O2 Flow Rate 1.00 FiO2 28 Capillary Refill : Less Than 3 Seconds I&O Intake and Output 07/10/19 00:00 Intake Total 1442 ml Output Total 550 ml Balance 892 ml Intake Oral 1442 ml Output Urine Total 550 ml # Bowel Movements 1 General: Alert, Oriented X3, Cooperative HEENT: Atraumatic, PERRLA Neck: Supple, No JVD, No Thyromegaly Lungs: Clear to Auscultation, Normal Air Movement Heart: Normal S1, Normal S2, No Murmurs, Other (irregularly irregular) Abdomen: Normal Bowel Sounds, Soft, No Tenderness, No Hepatosplenomegaly, No Masses Extremities: No Clubbing, No Cyanosis, No Edema, Normal Pulses, No Tenderness/Swelling Skin: No Rashes, No Breakdown, No Significant Lesion Neuro: Normal Gait, Normal Speech, Strength at 5/5 X4 Ext, Normal Tone, Sensation Intact Psych/Mental Status: Mental Status NL, Mood NL Results Lab Laboratory Tests 07/10/19 05:00 07/10/19 05:30 A/P-Cardiology Admission Diagnosis Non-ST elevation myocardial infarction Coronary artery disease Hypertension Hyperlipidemia Assessment/Plan Chest pain, mild elevation in troponin, diffuse abdominal pain, non-ST elevation myocardial infarction due to small vessel disease. Patient reports improvement of chest pain. Medical therapy is recommended. Abdominal pain, nausea and vomiting, diffuse discomfort, better after discont inuation of amiodarone and Lipitor, feeling better at this time. Continue to monitor Anxiety, depression, feeling better today. Continue on Zoloft and monitor Elevated BNP, echocardiogram showed left ventricular hypertrophy with hyperactive ventricle, gradient across the left ventricular outflow tract probably due to hypovolemia, chronic left ventricular diastolic dysfunction, hypertensive heart disease. Coronary artery disease, history of multiple interventions in the past, had a total of 3 stents. Underwent cardiac catheterization on November 15, 2018 revealing moderate stenosis at the ostium of the right coronary artery, heavily calcified. 2 stents in the mid right coronary artery are patent with small vessel disease distally. Calcified left main coronary artery is moderate stenosis, nonobstructive disease. Patent stents in the mid circumflex artery with no o bstructive disease, mild disease in LAD. Underwent cardiac catheterization on June 29, 2019 with balloon angioplasty to the mid right coronary artery and stenting to the ostium of the right coronary artery using Maryann 3 x 15 mm stent expanded to 3.25 mm with excellent results, still have moderate stenosis at the mid left main, mid LAD and mid circumflex artery with small vessel disease. Persistent atrial fibrillation, maintained on Xarelto, amiodarone discontinued, continue to monitor High risk of bleed, patient is maintained on aspirin, Plavix and Xarelto, I will consider stopping Xarelto if needed Peripheral edema, better at this time. Upper respiratory infection, recently diagnosed and treated with steroids as outpatient. Continue to monitor. Hypertension, continue on home medication Hyperlipidemia, continue holding Lipitor. Monitor tolerance and response Carotid artery stenosis, mild bilateral nonobstructive disease per carotid duplex done December 2018 Prediabetes Patient was seen and evaluated with Cortney, examination performed, management plan was discussed, agree with the current scribed note, I made few changes to the note using Italic font Patient is laying down in bed, feeling better. No new complaint, still having some nausea but overall there is significant improvement Lungs were clear to auscultation, heart is regular Chest pain has improved Continue with physical therapy and current medications and monitor Clinical Quality Measures DVT/VTE Risk/Contraindication: Risk Factor Score Per Nursin RFS Level Per Nursing on Admit: 3=High CORTNEY POWERS Jul 10, 2019 09:27 GEOFF THOMSON MD Jul 10, 2019 10:26
--- NOTE | 2019-07-10 11:11 | Physical Therapy Daily Note ---
PT Daily Note-Current Subjective Patient agreeable to therapy at this time. Appearance Patient in recliner with call light and bedside table within reach. Mental Status Patient Orientation: Normal For Age Attachments: Oxygen (2L) Transfers SCALE: Activities may be completed with or without assistive devices. 1-Gnpathwmrr-qdaskhz completes the activity by him/herself with no assistance from a helper. 5-Set-up or Clean-up Assistance-helper sets up or cleans up; patient completes activity. [place] assists only prior to or following the activity. 4-Supervision or Touching Assistance-helper provides verbal cues and/or touching/steadying and/or contact guard assistance as patient completes activity. Assistance may be provided throughout the activity or intermittently. 3-Partial/Moderate Assistance-helper does LESS THAN HALF the effort. [place] lifts, holds or supports trunk or limbs, but provides less than half the effort. 2-Substantial/Maximal Assistance-helper does MORE THAN HALF the effort. [place] lifts or holds trunk or limbs and provides more than half the effort. 7-Xrwlfhbow-tmraos does ALL the effort. Patient does none of the effort to complete the activity. Or, the assistance of 2 or more helpers is required for the patient to complete the activity. If activity was not attempted, code reason: 7-Patient Refused. 9-Not Applicable-not attempted and the patient did not perform the activity before the current illness, exacerbation or injury. 10-Not Attempted due to Environmental Limitations-(lack of equipment, weather restraints, etc.). 88-Not Attempted due to Medical Conditions or Safety Concerns. Roll Left & Right (QC): 6 Sit to Lying (QC): 6 Lying to Sitting/Side of Bed(Q: 6 Sit to Stand (QC): 4 Chair/Uyx-ji-Znhjd Xfer(QC): 4 Gait Training Does the Patient Walk?: Yes Distance: 200' Walk 10 feet (QC): 4 Walk 50 ft with 2 Turns(QC): 4 Walk 150 ft (QC): 4 Gait Persons Needed: 1 Gait Assistive Device: FWW CGA for safety Wheelchair Training Does the Pt Use a Wheelchair?: No Treatments Ambulation. Bed mobility. Transfers. Assessment Current Status: Good Progress Patient's ambualiton was steady. Patient reported slight dizziness upon sitting EOB but that dissipated quickly. Patient asked if she could walk more, informed that she can ask nursing to walk with her in the halls. PT Mcfp Goals Emissions Repair Technician Goals PT Mcfp Goals Time Frame: Jul 13, 2019 Roll Left & Right (QC): 6 Sit to Lying (QC): 6 Lying-Sitting on Side/Bed(QC): 6 Sit to Stand (QC): 6 Chair/Vrz-tx-Yyuqv Xfer(QC): 6 Toilet Transfer (QC): 6 Does the Patient Walk: Yes Walk 10 feet (QC): 6 Walk 50ft with 2 Turns (QC): 6 Walk 150 ft (QC): 6 PT Plan Problem List Problem List: Activity Tolerance, Functional Strength, Safety, Balance, Gait, Transfer Treatment/Plan Treatment Plan: Continue Plan of Care Treatment Plan: Bed Mobility, Education, Functional Activity Abdiel, Functional Strength, Gait, Safety, Therapeutic Exercise, Transfers Treatment Duration: Jul 14, 2019 Frequency: 6 times per week Estimated Hrs Per Day: .25 hour per day Patient and/or Family Agrees t: Yes Safety Risks/Education Patient Education: Gait Training, Transfer Techniques Teaching Recipient: Patient Teaching Methods: Discussion Response to Teaching: Reinforcement Needed Time/GCodes Time In: 945 Time Out: 958 Total Billed Treatment Time: 13 Total Billed Treatment 1 visit FA 13 NICO CHAVEZ PT Jul 10, 2019 11:11
--- NOTE | 2019-07-10 12:27 | NUR ---
IRF Evaluation Chart review complete and findings discussed with Dr. Claire - patient accepted for admission. Anticipate admission, 07/11/19. Will continue to follow. Thank you for this referral. Addendum: 07/10/19 at 1516 by SEPTEMBER Kj RICHARDSON Met with patient to discuss details specific to rehabilitation program. Patient is agreeable to required therapy regimen and admission.
--- NOTE | 2019-07-10 13:33 | NUR ---
"RD ASSESSMENT PMHx: afib; CAD; HTN; hypercholesterolemia PT INTERACTION: Pt was awake and pleasant during nutrition assessment. Pt states current appetite is terrible and has been for some time. Note avg PO intake of 21% x2d, per chart review. Pt states following a low-salt diet at home and has no issues with chewing/swallowing food. Pt states some recent issues with nausea, but no episodes of emesis. Pt states no recent issues with constipation/diarrhea at this time. Note last BM was 2/2 and pt currently on bowel regimen of colace PRN, per chart review. Pt states no recent wt changes. Note unable to determine recent wt hx, per chart review. ABNORMAL NUTRITION-RELATED LAB VALUES LOW: Na 132; Ca 8.3; Pro 5.1; alb 2.6 HIGH: Est. kcal needs: 0958-8149 kcal | 15-20 kcal/kg Est. Pro needs: 72-91 g Pro | 0.8-1.0 g Pro/kg PES STATEMENT: Inadequate oral intake (NI-2.1) related to loss of appetite | nausea as evidenced by pt interview | avg PO intake 21% x2d INTERVENTION: Continue with current diet order of 2000mg Sodium diet. Add Ensure Enlive (vary) to meals TID, for increased kcal intake. Provides 350 kcal and 13 g Pro per serving. Will continue to follow and reassess as pt needs and status change. MONITOR/EVALUATE: PO Intake; Plan of Care; Hydration Status; Weight Status; Lab Values Vonnie Terry, MS, RD, LD"
--- NOTE | 2019-07-10 13:50 | Occupational Ther Daily Note ---
OT Current Status-Daily Note Subjective Pt alert, sitting in recliner. Pt states that she can't eat much because she becomes nauseous when she does. Pt agrees to therapy. Mental Status/Objective Patient Orientation: Person, Place, Time, Situation Attachments: Adam Catheter, IV, Oxygen, Telemetry ADL-Treatment Sit to stand, SBA. Ambulated to bathroom with FWW, close SBA. CGA due to 1 LOB during oral care standing at sink. Pt completes own oral care and grooming. Pt transfers to toilet with CGA using FWW and grabbars. CGA for toileting hygiene. Only hospital gown for clothing. Pt fatigued quickly and became less steady during session. Assist given to manipulate O2 tubing and catheter. After therapy, pt sitting in recliner with call light/phone in reach. O2 in place. All needs met in room. Therapy Code Descriptions/Definitions Functional [place] Measure: 0=Not Assessed/NA 4=Minimal Assistance 1=Total Assistance 5=Supervision or Setup 2=Maximal Assistance 6=Modified [place] 3=Moderate Assistance 7=Complete IndependenceSCALE: Activities may be completed with or without assistive devices. 4-Dugmwteiqc-rniytta completes the activity by him/herself with no assistance from a helper. 5-Set-up or Clean-up Assistance-helper sets up or cleans up; patient completes activity. [place] assists only prior to or following the activity. 4-Supervision or Touching Assistance-helper provides verbal cues and/or touching/steadying and/or contact guard assistance as patient completes activity. Assistance may be provided throughout the activity or intermittently. 3-Partial/Moderate Assistance-helper does LESS THAN HALF the effort. [place] lifts, holds or supports trunk or limbs, but provides less than half the effort. 2-Substantial/Maximal Assistance-helper does MORE THAN HALF the effort. [place] lifts or holds trunk or limbs and provides more than half the effort. 4-Pgjjqmjsz-mvvcod does ALL the effort. Patient does none of the effort to complete the activity. Or, the assistance of 2 or more helpers is required for the patient to complete the activity. If activity was not attempted, code reason: 7-Patient Refused. 9-Not Applicable-not attempted and the patient did not perform the activity before the current illness, exacerbation or injury. 10-Not Attempted due to Environmental Limitations-(lack of equipment, weather restraints, etc.). 88-Not Attempted due to Medical Conditions or Safety Concerns. Oral Hygiene (QC): 4 Toileting Hygiene (QC): 4 Toilet Transfer (QC): 4 OT Email Specialist Goals Care Home Goals Time Frame: Jul 20, 2019 Eating (QC): 6 Oral Hygiene (QC): 6 Toileting Hygiene (QC): 6 Shower/Bathe Self (QC): 5 Upper Body Dressing (QC): 5 Lower Body Dressing (QC): 5 On/Off Footwear (QC): 5 Additional Goals: 1-Demonstrate ADL Tasks, 2-Verbalize Understanding, 3-Impro veStrength/Abdiel 1=Demonstrate adherence to instructed precautions during ADL tasks. 2=Patient will verbalize/demonstrate understanding of assistive devices/modifications for ADL. 3=Patient will improve strength/tolerance for activity to enable patient to perform ADL's. OT Education/Plan Problem List/Assessment Assessment: Decreased Activ Tolerance, Impaired Funct Balance, Impaired Self- Care Skills Discharge Recommendations Plan/Recommendations: Continue POC Treatment Plan/Plan of Care Patient would benefit from OT for education, treatment and training to promote independence in ADL's, mobility, safety and/or upper extremity function for ADL's. Plan of Care: ADL Retraining, Functional Mobility, UE Funct Exercise/Act Treatment Duration: Jul 20, 2019 Frequency: 5 times per week Estimated Hrs Per Day: .5 hour per day Agreement: Yes Rehab Potential: Good Time/GCodes Start Time: 13:18 Stop Time: 13:42 Total Time Billed (hr/min): 24 Billed Treatment Time 1 visit-ADL 2 (24 min) NIGHAT MAYORGA Jul 10, 2019 13:50
--- NOTE | 2019-07-10 16:34 | NUR ---
Pastoral Care Visit.
--- NOTE | 2019-07-10 16:43 | Progress Note ---
Subjective Subjective/Events-last exam Afebrile, states she is feeling fairly well. IRF eval pending. Objective Exam Last Set of Vital Signs Vital Signs Date Time Temp Pulse Resp B/P (MAP) Pulse Ox O2 Delivery O2 Flow Rate FiO2 07/10/19 16:27 36.3 90 20 147/66 (93) 98 High Flow N/C 2.00 07/06/19 11:48 28 Capillary Refill : Less Than 3 Seconds I&O Intake and Output 07/10/19 00:00 Intake Total 1442 ml Output Total 550 ml Balance 892 ml Intake Oral 1442 ml Output Urine Total 550 ml # Bowel Movements 1 General: Alert, No Acute Distress Lungs: Clear to Auscultation, Normal Air Movement Heart: Regular Rate, No Murmurs Abdomen: Normal Bowel Sounds, No Tenderness Psych/Mental Status: Mood NL Results/Procedures Lab Laboratory Tests 07/10/19 05:00: White Blood Count 6.1, Red Blood Count 3.43L, Hemoglobin 10.1L, Hematocrit 30L, Mean Corpuscular Volume 88, Mean Corpuscular Hemoglobin 29, Mean Corpuscular Hemoglobin Concent 34, Red Cell Distribution Width 14.0, Platelet Count 249, Mean Platelet Volume 9.6 07/10/19 05:30: Sodium Level 132L, Potassium Level 3.6, Chloride Level 100, Carbon Dioxide Level 22, Anion Gap 10, Blood Urea Nitrogen 14, Creatinine 1.05, Estimat Glomerular Filtration Rate 50, BUN/Creatinine Ratio 13, Glucose Level 101, Calcium Level 8.3L, Corrected Calcium 9.4, Magnesium Level 1.8, Total Bilirubin 0.6, Aspartate Amino Transf (AST/SGOT) 31, Alanine Aminotransferase (ALT/SGPT) 38, Alkaline Phosphatase 125, Total Protein 5.1L, Albumin 2.6L Assessment/Plan Assessment/Plan Assessment & Plan Abdominal pain, nausea and vomiting, diffuse discomfort, better after discontinuation of amiodarone and Lipitor, started on carafate. Anxiety, depression, Zoloft started Elevated BNP Coronary artery disease- Cardiology consulted appreciate recommendations Persistent atrial fibrillation Upper respiratory infection, recently diagnosed and treated with steroids as outpatient. Continue to monitor. Hypertension, continue on home medication Hyperlipidemia, continue holding Lipitor. Monitor tolerance and response Carotid artery stenosis Prediabetes (1) Duodenitis Status: Acute Assessment & Plan: Symptomatically improved, is tolerating liquids but feels nauseous with solids, continue to advance as tolerated. (2) Acute kidney insufficiency Status: Resolved (3) Elevated brain natriuretic peptide (BNP) level Status: Acute Assessment & Plan: Cardiology consulted, appreciate recommendations. (4) Atrial fibrillation Status: Chronic Assessment & Plan: Cardiology consulted, appreciate recommendations. (5) CAD (coronary artery disease) Status: Chronic Assessment & Plan: Cardiology consulted, appreciate recommendations. (6) Hypothyroidism Status: Chronic Assessment & Plan: Resume home levothyroxine (7) HTN (hypertension) Status: Chronic (8) HLD (hyperlipidemia) Status: Chronic (9) Debility Status: Acute Assessment & Plan: IRF consult (10) DVT prophylaxis Status: Acute Assessment & Plan: On rivaroxaban Clinical Quality Measures DVT/VTE Risk/Contraindication: Risk Factor Score Per Nursin RFS Level Per Nursing on Admit: 3=High JORDI RODRIGUEZ MD Jul 10, 2019 16:43
[2019-07-10] MEDS: RIVAROXABAN 20 MG TABLET (XARELTO) PO SCH (17:26)
[2019-07-10] MEDS: MELATONIN 3 MG TABLET PO PRN (21:58)
[2019-07-10] MEDS: SERTRALINE 50 MG (ZOLOFT) TABLET PO SCH (21:58)
[2019-07-11] MEDS: RT-ALBUTEROL/IPRATROPIUM 3 ML (DUONEB) VIAL INH SCH ×3 (01:14→09:41)
[2019-07-11] MEDS: ONDANSETRON 4 MG/2 ML (SDV) Z0FRAN IVP PRN (02:41)
[2019-07-11 03:55] VITALS: BP 123/69
[2019-07-11] MEDS: SUCRALFATE 1 GM (CARAFATE) TAB PO SCH (05:38)
[2019-07-11] MEDS: LEVOTHYROXINE 25 MCG (LEVOTHROID) TAB PO SCH (05:38)
[2019-07-11 06:51] LABS: MEAN PLATELET VOLUME 9.3 FL (7.4-10.4); RED CELL DISTRIBUTION WIDTH 14.2 % (10.0-14.5); WHITE BLOOD COUNT 6.4 10^3/uL (4.3-11.0)
[2019-07-11 07:16] LABS: CALCIUM 8.3 MG/DL (8.5-10.1); CREATININE SERUM 0.98 MG/DL (0.60-1.30); POTASSIUM 3.8 MMOL/L (3.6-5.0)
[2019-07-11 08:00] VITALS: BP 161/74
[2019-07-11] MEDS: CLOPIDOGREL 75 MG (PLAVIX) TABLET PO SCH (08:57)
[2019-07-11] MEDS: ISOSORBIDE MONONITRATE 30 MG (IMDUR) TAB PO SCH (08:57)
[2019-07-11] MEDS: PANTOPRAZOLE 40 MG (PROTONIX) TAB PO SCH (08:57)
[2019-07-11] MEDS: ASPIRIN E.C. 81 MG (ECOTRIN) TAB PO SCH (08:57)
--- NOTE | 2019-07-11 09:07 | Cardiology Progress Note ---
Subjective Date Seen by Provider: Jul 11, 2019 Time Seen by Provider: 08:17 Subjective/Events-last exam Patient in bed, reports nausea is continuing to improve. Denies any chest pain. Objective-Cardiology Exam Last Set of Vital Signs Vital Signs 07/06/19 07/11/19 07/11/19 07/11/19 11:48 03:55 07:00 08:15 Temp 36.2 Pulse 84 Resp 16 B/P (MAP) 123/69 (87) Pulse Ox 95 O2 Delivery Nasal Cannula O2 Flow Rate 1.00 FiO2 28 Capillary Refill : Less Than 3 Seconds I&O Intake and Output 07/11/19 00:00 Intake Total 1030 ml Output Total 550 ml Balance 480 ml Intake Oral 1030 ml Output Urine Total 550 ml # Bowel Movements 1 General: Alert, No Acute Distress HEENT: Atraumatic, PERRLA Neck: Supple, No JVD, No Thyromegaly Lungs: Clear to Auscultation, Normal Air Movement Heart: Regular Rate, No Murmurs Abdomen: Normal Bowel Sounds, No Tenderness Extremities: No Clubbing, No Cyanosis, No Edema, Normal Pulses, No Tenderness/Swelling Skin: No Rashes, No Breakdown, No Significant Lesion Neuro: Normal Gait, Normal Speech, Strength at 5/5 X4 Ext, Normal Tone, Sensation Intact Psych/Mental Status: Mood NL Results Lab Laboratory Tests 07/11/19 05:54 A/P-Cardiology Admission Diagnosis Non-ST elevation myocardial infarction Coronary artery disease Hypertension Hyperlipidemia Assessment/Plan Chest pain, mild elevation in troponin, diffuse abdominal pain, non-ST elevation myocardial infarction due to small vessel disease. Patient reports improvement of chest pain. Medical therapy is recommended. Abdominal pain, nausea and vomiting, diffuse discomfort, better after discontinuation of amiodarone and Lipitor, feeling better at this time. Continue to monitor Anxiety, depression, feeling better today. Continue on Zoloft and monitor Elevated BNP, echocardiogram showed left ventricular hypertrophy with hyperactive ventricle, gradient across the left ventricular outflow tract probably due to hypovolemia, chronic left ventricular diastolic dysfunction, hypertensive heart disease. Coronary artery disease, history of multiple interventions in the past, had a total of 3 stents. Underwent cardiac catheterization on November 15, 2018 revealing moderate stenosis at the ostium of the right coronary artery, heavily calcified. 2 stents in the mid right coronary artery are patent with small vessel disease distally. Calcified left main coronary artery is moderate stenosis, nonobstructive disease. Patent stents in the mid circumflex artery with no obstructive disease, mild disease in LAD. Underwent cardiac catheterization on June 29, 2019 with balloon angioplasty to the mid right coronary artery and stenting to the ostium of the right coronary artery using Maryann 3 x 15 mm stent expanded to 3.25 mm with excellent results, still have moderate stenosis at the mid left main, mid LAD and mid circumflex artery with small vessel disease. Persistent atrial fibrillation, maintained on Xarelto, amiodarone discontinued, continue to monitor High risk of bleed, patient is maintained on aspirin, Plavix and Xarelto, I will consider stopping Xarelto if needed Peripheral edema, better at this time. Upper respiratory infection, recently diagnosed and treated with steroids as outpatient. Continue to monitor. Hypertension, continue on home medication Hyperlipidemia, continue holding Lipitor. Monitor tolerance and response Carotid artery stenosis, mild bilateral nonobstructive disease per carotid duplex done December 2018 Prediabetes Clinical Quality Measures DVT/VTE Risk/Contraindication: Risk Factor Score Per Nursin RFS Level Per Nursing on Admit: 3=High CORTNEY POWERS Jul 11, 2019 09:07
[2019-07-11] MEDS: RT-ADVAIR HFA 45/21 MCG PER PUFF IH SCH (09:37)
--- NOTE | 2019-07-11 09:42 | NUR ---
patient states she is not having any SOA; non-productive cough; she also had surgery on Jun: she uses 2 l o2 at [facility]; has a hx of sleep apnea also; never a smoker 97% HR 80 RR 16 BS CLEAR ON 2 L NC
[2019-07-11] MEDS ORDERED: BISACODYL 10 MG SUPP (DULCOLAX) PR NR (09:45)
[2019-07-11 10:29] VITALS: BP 161/74
--- NOTE | 2019-07-11 17:13 | Discharge Summary ---
Discharge Summary Hospital Course Problems/Diagnosis: (1) Duodenitis Status: Acute Assessment & Plan: Symptomatically improved, is tolerating liquids but feels nauseous with solids, continue to advance as tolerated. Discharged to IRF, continue to advance diet as tolerated (2) Acute kidney insufficiency Status: Resolved Resolution Date/Time: 07/10/19 @ 16:43 (3) Elevated brain natriuretic peptide (BNP) level Status: Acute Assessment & Plan: Cardiology consulted, appreciate recommendations. (4) Atrial fibrillation Status: Chronic Assessment & Plan: Cardiology consulted, appreciate recommendations. (5) CAD (coronary artery disease) Status: Chronic Assessment & Plan: Cardiology consulted, appreciate recommendations. (6) Hypothyroidism Status: Chronic Assessment & Plan: Resume home levothyroxine (7) HTN (hypertension) Status: Chronic (8) HLD (hyperlipidemia) Status: Chronic (9) Debility Status: Acute Assessment & Plan: Discharged to IRF Hospital Course Date of Admission: Jul 05, 2019 at 14:56 Admission Diagnosis : Family Physician/Provider: Niyah Lopez Aprn Date of Discharge: 07/11/19 Discharge Diagnosis: See problem list Hospital Course: See problem list. Of note, patient had already been discharged earlier in course and med rec was unable to be appropriately updated at d/c to IRF, will need new update again on IRF d/c. Labs and Pending Lab Test: Laboratory Tests 07/11/19 05:54: White Blood Count 6.4, Red Blood Count 3.40L, Hemoglobin 10.0L, Hematocrit 30L, Mean Corpuscular Volume 88, Mean Corpuscular Hemoglobin 29, Mean Corpuscular Hemoglobin Concent 34, Red Cell Distribution Width 14.2, Platelet Count 267, Mean Platelet Volume 9.3, Sodium Level 129L, Potassium Level 3.8, Chloride Level 99, Carbon Dioxide Level 22, Anion Gap 8, Blood Urea Nitrogen 11, Creatinine 0.98, Estimat Glomerular Filtration Rate 54, BUN/Creatinine Ratio 11, Glucose Level 105, Calcium Level 8.3L Home Meds Active Reported Aspirin EC (Aspirin) 81 Mg Tablet.dr 81 Mg PO DAILY Plavix (Clopidogrel Bisulfate) 75 Mg Tablet 75 Mg PO DAILY Pantoprazole Sodium 40 Mg Tablet.dr 40 Mg PO DAILY Metoclopramide HCl 5 Mg Tablet 5 Mg PO TID PRN Senna (Sennosides) 8.6 Mg Tablet 8.6 Mg PO Q6H PRN Potassium Chloride 20 Meq Tab.er.prt 20 Meq PO DAILY Furosemide 40 Mg Tablet 40 Mg PO DAILY Advair 100-50 Diskus (Fluticasone/Salmeterol) 1 Each Blst.w.dev 1 Puff INH BID Proair Hfa (Albuterol Sulfate) 1 Puff Puff 2 Puff INH Q6H PRN Diltiazem HCl 60 Mg Tablet 60 Mg PO Q6H Benzonatate 100 Mg Capsule 100 Mg PO TID Meclizine HCl 25 Mg Tablet 25 Mg PO TID PRN Amiodarone HCl 200 Mg Tablet 200 Mg PO BID Magnesium Oxide 400 Mg Tablet 400 Mg PO DAILY Synthroid (Levothyroxine Sodium) 25 Mcg Tablet 25 Mcg PO 0500 Xarelto (Rivaroxaban) 20 Mg Tablet 20 Mg PO 1800 Atorvastatin Calcium 40 Mg Tablet 40 Mg PO 1800 LAST FILLED #90 12-07-18 Assessment/Pt DC Instructions See above Discharge Physical Examination Allergies: Coded Allergies: Penicillins (Verified Allergy, Unknown, 07/21/18) propoxyphene (Verified Allergy, Unknown, 07/21/18) General Appearance: No Apparent Distress Respiratory: Normal Breath Sounds, No Accessory Muscle Use Cardiovascular: Irregularly Irregular Neurologic/Psychiatric: Alert, Normal Mood/Affect Clinical Quality Measures DVT/VTE Risk/Contraindication: Risk Factor Score Per Nursin RFS Level Per Nursing on Admit: 3=High JORDI RODRIGUEZ MD Jul 11, 2019 17:13
== END 2019-07-11 10:30 ==
LOC: EDUNIT# 10:35 → ER FS 10:37 → 4TH 14:56
PROVIDERS: ADMIT Internal Medicine; ATTEND Family Medicine
DX: I21.4 Non-ST elevation (NSTEMI) myocardial infarction (principal); K29.80 Duodenitis without bleeding; I48.0 Paroxysmal atrial fibrillation; I11.0 Hypertensive heart disease with heart failure; I25.10 Atherosclerotic heart disease of native coronary artery without angina pectoris; I50.30 Unspecified diastolic (congestive) heart failure; E78.00 Pure hypercholesterolemia, unspecified; R73.03 Prediabetes; E03.9 Hypothyroidism, unspecified; R79.0 Abnormal level of blood mineral; N28.9 Disorder of kidney and ureter, unspecified; E78.5 Hyperlipidemia, unspecified; J06.9 Acute upper respiratory infection, unspecified; F41.9 Anxiety disorder, unspecified; F32.9 Major depressive disorder, single episode, unspecified; Z88.0 Allergy status to penicillin; Z88.8 Allergy status to other drugs, medicaments and biological substances; Z79.82 Long term (current) use of aspirin; Z79.02 Long term (current) use of antithrombotics/antiplatelets; Z79.899 Other long term (current) drug therapy; Z82.49 Family history of ischemic heart disease and other diseases of the circulatory system; Z82.3 Family history of stroke; Z83.3 Family history of diabetes mellitus
CPT/HCPCS: 36415; 36600; 70450; 71045; 74176; 80048; 80053; 80162; 81000; 82805; 83690; 83735; 83880; 84443; 84484; 85007; 85025; 85027; 85379; 85610; 85730; 93005; 94640; 94664; 94760; 96374; 96375; G0378

== ENCOUNTER 2019-07-11 09:36 | Inpatient (IN) | payer MEDICARE, OTHER ==
[~2019-07-11] VITALS: Ht 157.4 cm; Wt 93.2 kg
[~2019-07-11 09:36] MED LIST changes: +CLOP75TA69 PO; +METO5TAB2 PO; +PANT40TA3 PO
[2019-07-11] MEDS ORDERED: CALCIUM CARBONATE 500 MG (TUMS) TAB.CHEW PO PRN ×2 (10:00→15:00)
[2019-07-11] MEDS ORDERED: diphenhydrAMINE 25 MG TAB (BENADRYL) PO PRN (10:00)
[2019-07-11] MEDS ORDERED: LOPERAMIDE 2 MG (IMODIUM) TABLET PO PRN ×2 (10:00→15:00)
[2019-07-11] MEDS ORDERED: guaiFENesin/CODEINE (ROBITUSSIN AC) 10ML UDC PO PRN (10:00)
[2019-07-11] MEDS ORDERED: FLEET ENEMA ADULT 1 EA BTL PR PRN (10:00)
[2019-07-11] MEDS ORDERED: DOCUSATE SODIUM 100 MG (COLACE) CAP PO PRN ×2 (10:00→15:00)
[2019-07-11] MEDS ORDERED: LACTULOSE SYRUP 10GM/15ML (ENULOSE) 30ML UDC PO PRN (10:00)
[2019-07-11] MEDS ORDERED: ONDANSETRON 4 MG (ZOFRAN) ORAL DISSOLVE TAB PO PRN ×2 (10:00→15:00)
[2019-07-11] MEDS ORDERED: ALPRAZolam 0.25 MG (XANAX) TAB PO PRN (10:00)
--- NOTE | 2019-07-11 10:25 | NUR ---
Lou Bosch admitted to room 225-1, with an admitting diagnosis of Non-Stemi, on 07/11/19 from 4th Floor Medical via wheelchair, accompanied by staff. LOU BOSCH introduced to surroundings, call light, bed controls, phone, TV, temperature control, lights, meal times, smoking policy, visitor policy, side rail policy, bathrooms and showers. Patient Rights given to patient in the handbook.LOU BOSCH verbalizes understanding that [facility] is not responsible for the loss or damage to any personal effects or valuables that are kept in the patients posession during their hospitalization. The following Patient Care Plans were discussed with the Patient: Discharge Planning, Activity Intolerance, Heart Cath. LOU BOSCH verbalizes understanding of Interdisciplinary Patient Education. Patient and/or family were informed about the Rapid Response Team and its purpose.
[2019-07-11 10:30] VITALS: BP 175/78
--- NOTE | 2019-07-11 11:41 | Occupational Therapy Eval ---
OT Evaluation-General/PLF Medical Diagnosis Admission Date Jul 11, 2019 at 10:30 Medical Diagnosis: chest pain/afib Onset Date: Jul 05, 2019 Therapy Diagnosis Therapy Diagnosis: impaired self care skills Height/Weight Height (Feet): 5 Height (Inches): 4.00 Weight (Pounds): 190 Weight (Ounces): 0.7 Referral Physician: Dakotah Medical History Pertinent Medical History: Atrial Fib, CAD, HTN, Hypothroidism Additional Medical History chronic edema, coronary stent, high cholesterol Current History Pt has had multiple hospitalizations in the last month. Had stent placement. Social History Current Living Status: Children (daughter and son-in-law) Entry Into Home: Ramp ADL-Prior Level of Function SCALE: Activities may be completed with or without assistive devices. 0-Deawgcamds-idlwwfi completes the activity by him/herself with no assistance from a helper. 5-Set-up or Clean-up Assistance-helper sets up or cleans up; patient completes activity. [employer] assists only prior to or following the activity. 4-Supervision or Touching Assistance-helper provides verbal cues and/or touching/steadying and/or contact guard assistance as patient completes activity. Assistance may be provided throughout the activity or intermittently. 3-Partial/Moderate Assistance-helper does LESS THAN HALF the effort. [employer] lifts, holds or supports trunk or limbs, but provides less than half the effort. 2-Substantial/Maximal Assistance-helper does MORE THAN HALF the effort. [employer] lifts or holds trunk or limbs and provides more than half the effort. 7-Fgwqrzrck-qnsvyq does ALL the effort. Patient does none of the effort to compl ete the activity. Or, the assistance of 2 or more helpers is required for the patient to complete the activity. If activity was not attempted, code reason: 7-Patient Refused. 9-Not Applicable-not attempted and the patient did not perform the activity before the current illness, exacerbation or injury. 10-Not Attempted due to Environmental Limitations-(lack of equipment, weather restraints, etc.). 88-Not Attempted due to Medical Conditions or Safety Concerns. ADL PLOF Comments Pt states prior to illness she was independent with all ADLs and mobility. Was able to complete housework and drive Self Care: Independent DME/Equipment: Bath Chair, Tall Toilet, Tub/Shower Drive Self: Yes OT Current Status Subjective Pt agreeable to therapy. No reports of pain. Pt states she's had nausea, but is not currently experiencing any. Mental Status/Objective Patient Orientation: Person, Place Attachments: Oxygen Current Glasses/Contacts: Yes Hearing Aids: No Dentures/Partials: Yes Hand Dominance: Right Upper Extremity ROM shoulder ROM to ~90 degrees. Remainder grossly WFL Upper Extremity Coordination Fair. Pt states she's been "shaky" Upper Extremity Sensation Intact per pt report ADL-Treatment ADL-Current Pt was transported to room on ARU by w/c. Pt performed transfer w/c <-> bed with FWW. Completed sit<-> supine with SBA. Pt participated in UE assessment while seated EOB. Gait to restroom with FWW. Pt stood at sink and completed oral care and other grooming tasks with CGA for balance. Pt fatigues quickly with activity. Transferred to chair with FWW. Pt requires max assist for footwear at this time. Education provided rehab expectations and plan of care. Pt states understanding of education. Pt sitting in chair with needs met after session. Eating (QC): 6 (Pt reports feeding herself and managing containers, but states she hasn't been able to eat much secondary to nausea.) Oral Hygiene (QC): 4 (CGA for balance while standing at sink.) Education OT Patient Education: Rehab process Teaching Recipient: Patient Teaching Methods: Discussion Response to Teaching: Verbalize Understanding OT [employer] Technician Goals Senior Care Goals Time Frame: Aug 01, 2019 Eating (QC): 6 Oral Hygiene (QC): 6 Toileting Hygiene (QC): 6 Shower/Bathe Self (QC): 5 Upper Body Dressing (QC): 6 Lower Body Dressing (QC): 6 On/Off Footwear (QC): 6 Additional Goals: 1-Demonstrate ADL Tasks, 2-Verbalize Understanding, 3- ImproveStrength/Abdiel 1=Demonstrate adherence to instructed precautions during ADL tasks. 2=Patient will verbalize/demonstrate understanding of assistive devices/modifications for ADL. 3=Patient will improve strength/tolerance for activity to enable patient to perform ADL's. OT Education/Plan Problem List/Assessment Assessment: Decreased Activ Tolerance, Decreased UE Strength, Dependent [place] sfers, Impaired Funct Balance, Impaired I ADL's, Impaired Self-Care Skills Pt to benefit from skilled OT intervention for ADL training, transfers, strengthening, and home safety education to increase level of independence and allow safe discharge home. Discharge Recommendations Plan/Recommendations: Continue POC Treatment Plan/Plan of Care Treatment,Training & Education: Yes Patient would benefit from OT for education, treatment and training to promote independence in ADL's, mobility, safety and/or upper extremity function for ADL's. Plan of Care: ADL Retraining, Functional Mobility, Group Exercise/Act as Ind, UE Funct Exercise/Act Treatment Duration: Aug 01, 2019 Frequency: At least 5 of 7 days/Wk (IRF) Estimated Hrs Per Day: 1.5 hours per day Agreement: Yes Rehab Potential: Fair Time/GCodes Start Time: 10:25 Stop Time: 11:10 Total Time Billed (hr/min): 45 Billed Treatment Time 1 visit, EVM(25minutes), ADL(20minutes) NANDO LOAIZA OT Jul 11, 2019 11:41
[2019-07-11] MEDS: ONDANSETRON 4 MG/2 ML (SDV) Z0FRAN IV PRN ×2 (11:48→17:16)
--- NOTE | 2019-07-11 11:48 | NUR ---
Patient experiencing nausea and dry-heaving in Therapy Gym. IV Zofran administered and patient assisted back to her room. Zofran not scanned due to patient not being in her room.
--- NOTE | 2019-07-11 11:59 | Physical Therapy Evaluation ---
PT Evaluation-General Medical Diagnosis Admission Date Jul 11, 2019 at 10:30 Medical Diagnosis: chest pain/afib Onset Date: Jul 05, 2019 Therapy Diagnosis Therapy Diagnosis: Deconditioning Height/Weight Height (Feet): 5 Height (Inches): 4.00 Weight (Pounds): 190 Weight (Ounces): 0.7 Referral Physician: Dakotah Reason for Referral: Evaluation/Treatment Medical History Pertinent Medical History: Atrial Fib, CAD, HTN, Hypothroidism Current History Transfer to ARU Reviewed History: Yes Social History Home: Single Level Current Living Status: Children Entry Into Home: Ramp PT Steps Into Home: 0 PT Steps Inside Home: 0 Prior Prior Level of Function SCALE: Activities may be completed with or without assistive devices. 6-Hrmzcsijjr-zahhurt completes the activity by him/herself with no assistance from a helper. 5-Set-up or Clean-up Assistance-helper sets up or cleans up; patient completes activity. [place] assists only prior to or following the activity. 4-Supervision or Touching Assistance-helper provides verbal cues and/or touching/steadying and/or contact guard assistance as patient completes activity. Assistance may be provided throughout the activity or intermittently. 3-Partial/Moderate Assistance-helper does LESS THAN HALF the effort. [place] lifts, holds or supports trunk or limbs, but provides less than half the effort. 2-Substantial/Maximal Assistance-helper does MORE THAN HALF the effort. [place] lifts or holds trunk or limbs and provides more than half the effort. 3-Chjbcyyqf-cttkaq does ALL the effort. Patient does none of the effort to complete the activity. Or, the assistance of 2 or more helpers is required for the patient to complete the activity. If activity was not attempted, code reason: 7-Patient Refused. 9-Not Applicable-not attempted and the patient did not perform the activity before the current illness, exacerbation or injury. 10-Not Attempted due to Environmental Limitations-(lack of equipment, weather restraints, etc.). 88-Not Attempted due to Medical Conditions or Safety Concerns. Bed Mobility: 6 Transfers (B,C,W/C): 6 Gait: 6 Indoor Mobility (Ambulation): Independent Prior Devices Use: None PT Evaluation-Current Subjective Patient is agreeable to therapy. Patient is feeling nauseous but willing to do therapy. Objective Patient Orientation: Person, Place, Time, Situation Attachments: Oxygen (2L) ROM/Strength ROM Lower Extremities WFL BLE Strength Lower Extremities 4/5 BLE Integumentary/Posture Integumentary See nursing notes. Bowel Incontinence: No Bladder Incontinence: No Neuromuscular (Tone, Coordination, Reflexes) Grossly intact. Sensory Vision: Functional Hearing: Functional Hand Dominance: Right Sensation Right Lower Extremit: Intact Sensation Left Lower Extremity: Intact Transfers Roll Left to Right (QC): 6 Sit to Lying (QC): 6 Lying to Sitting/Side of Bed(Q: 6 Sit to Stand (QC): 4 Chair/Apk-ty-Ktxxi Xfer(QC): 4 Toilet Transfer: 4 Car Transfer (QC): 4 (Patient attempted putting feet in car first when instructed to perform like she normally does.) Gait Does the Patient Walk?: Yes Mode of Locomotion: Walk Anticipated Mode of Locomotion: Walk Walk 10 feet (QC): 4 Walk 50 ft with 2 Turns(QC): 4 Walk 150 ft (QC): 4 Walking 10ft/uneven surface-QC: 4 Distance: 150' x 2 Gait Assistive Device: FWW Comments/Gait Description CGA for safety. Wheelchair Training Does the Pt Use a Wheelchair?: No Stairs #of Steps: 1 1 Step (curb) (QC): 4 Walking Assistive Device: Walker Balance Sitting Static: Good Sitting Dynamic: Good Standing Static: Good Standing Dynamic: Good Picking up an Object (QC): 4 Treatment BLE supine exercises: heel slides, ankle pumps, quad sets, hip abduction, SLR x 10 BLE Assessment/Needs Patient is nauseous during treatment and during supine exercises patient vomited a little amount followed by several dry heaves. Nursing notified and administered nauseous medication. Rehab Potential: Fair PT It Program Auditor Goals Assisted Goals PT Assisted Goals Time Frame: Aug 05, 2019 Roll Left & Right (QC): 6 Sit to Lying (QC): 6 Lying-Sitting on Side/Bed(QC): 6 Sit to Stand (QC): 6 Chair/Htu-tv-Siuto Xfer(QC): 6 Toilet Transfer (QC): 6 Car Transfer (QC): 6 Does the Patient Walk: Yes Walk 10 feet (QC): 6 Walk 50ft with 2 Turns (QC): 6 Walk 150 ft (QC): 6 Walking 10ft on Uneven Surface: 6 1 Step (curb) (QC): 6 Does the Pt use WC or Scooter?: No PT Plan Problem List Problem List: Activity Tolerance, Functional Strength, Safety, Balance, Gait, Transfer, Bed Mobility, ROM Treatment/Plan Treatment Plan: Continue Plan of Care Treatment Plan: Bed Mobility, Concurrent Therapy, Education, Functional Activity Abdiel, Functional Strength, Group Therapy, Gait, Safety, Therapeutic Exercise, Transfers Treatment Duration: Aug 05, 2019 Frequency: At least 5 of 7 days/Wk (IRF) Estimated Hrs Per Day: 1.5 hours per day Patient and/or Family Agrees t: Yes Safety Risks/Education Patient Education: Gait Training, Transfer Techniques, Steps Teaching Recipient: Patient Teaching Methods: Demonstration, Discussion Response to Teaching: Reinforcement Needed Discharge Recommendations Therapy Discharge Recommendati: Home & Family Time/GCodes Time In: 1110 Time Out: 1200 Total Billed Treatment Time: 50 Total Billed Treatment 1 visit EVM (20 minutes) FA x 2 (30 minutes) NICO CHAVEZ PT Jul 11, 2019 11:59
--- NOTE | 2019-07-11 12:22 | NUR ---
REVIEWED MED REC IT WAS REPORTED UPON ADMISSION TO 4TH FLOOR. NO CHANGES WERE MADE WHEN THE PATIENT DISCHARGED TO REHAB.
--- NOTE | 2019-07-11 12:39 | Progress Note ---
TACOS NORTH, MEDICAL STUDENT 07/11/19 1239: Progress Note Hx: Michaela Hinton a 83 y.o.femalewho was admitted to [facility] on [facility]10[facility]2019for evaluation of A. fib with RVR, acute on chronic diastolic heart failure and acute respiratory failure with hypoxia. She was diuresed and eventually weaned off a Cardizem drip in the ICU and started in Amiodarone and oral Cardizen for rate control. On the day of discharge (06/21) she complained of cough. CXR was negative and she was given Albuterol, Advair and home health. She followed up with Cardiology outpatient who removed her Sotalol and Micardis and started Amiodarone, Digoxin and Diltiazem. Since then she has presented to the ER for stent placement by Dr. Reyez and then 2 more times with nonspecific complaints(panic attacks, nausea, vomiting and dysphagia and abdominal pain). According to multiple providers, the patient has been declining quickly. She has had 3 total stents mainly in her RCA with moderate to severe stenosis in all other coronary vessels. Other chronic medical problems include A fibb, HTN, HLD, prediabetes, anxiety, depression, recent upper respiratory infection, hypothyroidism, CKD, obesity and peripheral edema. PT and OT will follow patient and have been assessing and plan for eventual home discharge. -Tacos North MS4 JAZMÍN GASCA DO 07/11/192047: Supervisory-Addendum Brief Verification & Attestation Participated in pt care: history, MDM, physical Personally performed: exam, history, MDM, supervision of care Care discussed with: Medical Student Procedures: n/a Results interpretation: Verified all documentation Verification and Attestation of Medical Student E/M Service A medical student performed and documented this service in my presence. I reviewed and verified all information documented by the medical student and made modifications to such information, when appropriate. I personally performed the physical exam and medical decision making. Jazmín Gasca, Jul 11, 2019,20:48 TACOS NORTH, MEDICAL STUDENT Jul 11, 2019 12:39 JAZMÍN GASCA DO Jul 11, 2019 20:48
--- NOTE | 2019-07-11 13:59 | Occupational Ther Daily Note ---
OT Current Status-Daily Note Subjective Pt sitting in chair, agrees to therapy. Pt reports nausea, nursing aware. Mental Status/Objective Attachments: Oxygen ADL-Treatment Pt completed sponge bath while seated in chair. Upper body bathing completed with set up. Pt stood with CGA to wash buttocks and milka area. Pt able to wash bilateral upper legs, but requires assist for lower legs/feet. Don pullover nightgown with set up. Pt required assist to thread LE into underwear, but then able to stand with CGA for balance during pant hike. Max assist required for socks. Assisted pt to wash hair with shampoo cap while seated. Pt able to comb hair with set up. Pt requires increased time for ADL tasks. Takes frequent rest breaks. Pt sitting in chair with needs met after session. Therapy Code Descriptions/Definitions Functional [place] Measure: 0=Not Assessed/NA 4=Minimal Assistance 1=Total Assistance 5=Supervision or Setup 2=Maximal Assistance 6=Modified [place] 3=Moderate Assistance 7=Complete IndependenceSCALE: Activities may be completed with or without assistive devices. 6-Rdwljgyjey-tmvkprq completes the activity by him/herself with no assistance from a helper. 5-Set-up or Clean-up Assistance-helper sets up or cleans up; patient completes activity. [place] assists only prior to or following the activity. 4-Supervision or Touching Assistance-helper provides verbal cues and/or touching/steadying and/or contact guard assistance as patient completes activity. Assistance may be provided throughout the activity or intermittently. 3-Partial/Moderate Assistance-helper does LESS THAN HALF the effort. [place] lifts, holds or supports trunk or limbs, but provides less than half the effort. 2-Substantial/Maximal Assistance-helper does MORE THAN HALF the effort. [place] lifts or holds trunk or limbs and provides more than half the effort. 7-Lhliblnfu-qroiam does ALL the effort. Patient does none of the effort to complete the activity. Or, the assistance of 2 or more helpers is required for the patient to complete the activity. If activity was not attempted, code reason: 7-Patient Refused. 9-Not Applicable-not attempted and the patient did not perform the activity before the current illness, exacerbation or injury. 10-Not Attempted due to Environmental Limitations-(lack of equipment, weather restraints, etc.). 88-Not Attempted due to Medical Conditions or Safety Concerns. Shower/Bathe Self (QC): 3 Upper Body Dressing (QC): 5 Lower Body Dressing (QC): 3 On/Off Footwear: 2 OT Subway Guard Goals Subway Guard Goals Time Frame: Aug 01, 2019 Eating (QC): 6 Oral Hygiene (QC): 6 Toileting Hygiene (QC): 6 Shower/Bathe Self (QC): 5 Upper Body Dressing (QC): 6 Lower Body Dressing (QC): 6 On/Off Footwear (QC): 6 Additional Goals: 1-Demonstrate ADL Tasks, 2-Verbalize Understanding, 3-ImproveStrength/Abdiel 1=Demonstrate adherence to instructed precautions during ADL tasks. 2=Patient will verbalize/demonstrate understanding of assistive devices/modifications for ADL. 3=Patient will improve strength/tolerance for activity to enable patient to per form ADL's. OT Education/Plan Discharge Recommendations Plan/Recommendations: Continue POC Treatment Plan/Plan of Care Patient would benefit from OT for education, treatment and training to promote independence in ADL's, mobility, safety and/or upper extremity function for ADL's. Plan of Care: ADL Retraining, Functional Mobility, Group Exercise/Act as Ind, UE Funct Exercise/Act Treatment Duration: Aug 01, 2019 Frequency: At least 5 of 7 days/Wk (IRF) Estimated Hrs Per Day: 1.5 hours per day Agreement: Yes Rehab Potential: Good Time/GCodes Start Time: 13:00 Stop Time: 13:45 Total Time Billed (hr/min): 45 Billed Treatment Time 1 visit, ADLx3(45minutes) NANDO LOAIZA OT Jul 11, 2019 13:59
--- NOTE | 2019-07-11 14:19 | ST Cognitive Linguistic Eval ---
Speech Evaluation-General Medical Diagnosis chest pain/afib Onset Date: Jul 05, 2019 Therapy Diagnosis Therapy Diagnosis: Cognitive-communication Referral Referring Physician: Dr. Claire Reason for Referral: Evaluation/Treatment Medical History Pertinent Medical History: Atrial Fib, CAD, HTN, Hypothroidism Reviewed History: Yes Social History Current Living Status: Children Speech PLF-Current Status Prior Level of Function Patient reported that she presented with no cognitive deficits prior to hospital admission. Subjective Patient was alert and cooperative for all evaluation tasks. Patient reported that she had thrown up during her therapy time in the gym and was not feeling the best. Patient completed all evaluation tasks sitting upright in her chair. Language Eval: Auditory Comprehends Simple Yes/No Ques: Functional Indent/Objects Multiple Obrien: Functional Ident/Pics in Multiple Obrien: Functional Follows 1-Step Commands: Functional Follows Complex Directions: Functional Follows General Conversations: Functional Language Eval: Verbal Language Completes Spontaneous Greeting: Functional Produces Auto, Serial Info: Functional Imitates Simple Words/Phrases: Functional Word Finding: Functional Requests Basic Needs: Functional States Basic Personal Info: Functional Expresses Complex Ideas: Functional Objective Cognitive Domain Attention: WNL Memory: WNL Problem Solving: Functional Executive Functions: WNL Visuospatial Skills: WNL Composite Severity Rating: WNL Clock Drawing Severity Rating: WNL Objective Formal/Standardized Tests [facility] Mental Status (UMS) Examination was administered. Results The patient was administered the SLUMS and scored 27/30 which falls within normal limits of cognitive function. Oral Motor/Speech Production Within functional limits. Impression Patient was admitted to the ARU s/p chest pain. Patient was administered the SLUMS and scored 27/30 which falls within normal limits of cognitive function. Patient does not require skilled ST therapy at this time. Speech Patient Assess Expression of Ideas/Wants: Expression (4) Understanding Verbal Content: Understands (4) Brief Interview-Mental Status: Yes Repetition of Three Words: Three (3) Temporal Orientation: Year: Correct (3) Temporal Orientation: Month: Accurate within 5 days(2) Temporal Orientation: Day: Correct (1) Recall : Wear to say "Sock": Yes, no cue required (2) Recall : Color: Yes, after cueing (1) Recall : Bed: Yes,after cueing (1) Memory/Recall Ability: Current season, That he or she is in a hsp/hsp unit Speech-Plan Patient/Family Goals Patient/Family Goals: Patient reports that she wishes to feel better and return home to previous level of independence. Treatment Plan Speech Therapy Treatment Plan: Discontinue ST Treatment Duration: Jul 11, 2019 Frequency: 1 time per week Estimated Hrs Per Day: .25 hour per day Rehab Potential: Good Barriers to Learning: Current medical status Pt/Family Agrees to Plan: Yes Safety Risks/Education Teaching Recipient: Patient Teaching Methods: Demonstration Response to Teaching: Verbalize Understanding Education Topics Provided: Patient was provided education on evaluation tasks and what each targets. Time Speech Therapy Time In: 12:45 Speech Therapy Time Out: 13:00 Total Billed Time: 15 Billed Treatment Time 1, SPSNDCOMP No JULIA MULLER Jul 11, 2019 14:19
[2019-07-11] MEDS ORDERED: METOCLOPRAMIDE 5 MG (REGLAN) TAB PO PRN (15:00)
[2019-07-11] MEDS ORDERED: HYDROcodone/APAP 5 MG/325 MG (LORTAB) TAB PO PRN (15:00)
[2019-07-11] MEDS ORDERED: ACETAMINOPHEN 500 MG TAB (TYLENOL) PO PRN (15:00)
[2019-07-11] MEDS ORDERED: MECLIZINE 25 MG (ANTIVERT) TAB PO PRN (15:00)
[2019-07-11] MEDS ORDERED: MELATONIN 3 MG TABLET PO PRN (15:00)
[2019-07-11] MEDS ORDERED: RT-ALBUTEROL SULF 2.5 MG/3 ML PRE-MIX VIAL INH PRN (15:00)
--- NOTE | 2019-07-11 15:01 | Physical Therapy Daily Note ---
PT Daily Note-Current Subjective Patient reports she is very nauseous but is agreeable to therapy. Appearance Patient in recliner with feet up, call light and bedside table within reach. Mental Status Patient Orientation: Normal For Age Attachments: Oxygen (2L) Transfers SCALE: Activities may be completed with or without assistive devices. 6-Payqsyiuwh-rtadtwx completes the activity by him/herself with no assistance from a helper. 5-Set-up or Clean-up Assistance-helper sets up or cleans up; patient completes activity. Parker assists only prior to or following the activity. 4-Supervision or Touching Assistance-helper provides verbal cues and/or touching/steadying and/or contact guard assistance as patient completes activity. Assistance may be provided throughout the activity or intermittently. 3-Partial/Moderate Assistance-helper does LESS THAN HALF the effort. Parker lifts, holds or supports trunk or limbs, but provides less than half the effort. 2-Substantial/Maximal Assistance-helper does MORE THAN HALF the effort. Parker lifts or holds trunk or limbs and provides more than half the effort. 9-Xlrkgofqb-rvifcn does ALL the effort. Patient does none of the effort to complete the activity. Or, the assistance of 2 or more helpers is required for the patient to complete the activity. If activity was not attempted, code reason: 7-Patient Refused. 9-Not Applicable-not attempted and the patient did not perform the activity before the current illness, exacerbation or injury. 10-Not Attempted due to Environmental Limitations-(lack of equipment, weather restraints, etc.). 88-Not Attempted due to Medical Conditions or Safety Concerns. Sit to Stand (QC): 4 Gait Training Does the Patient Walk?: Yes Distance: 10' x 2 Walk 10 feet (QC): 4 Gait Assistive Device: FWW CGA for safety. Patient nauseous with movement and did not want to walk outside of room at this time. Wheelchair Training Does the Pt Use a Wheelchair?: No Exercises Supine Ex: Ankle pumps (10BLE), Quad Set (10BLE), Glut sets (10BLE) Supine Reps: 10 (in recliner) Standing: Hip Abduction (10 BLE x 2), Hamstring curls (10BLE x 2), Heel/toe raises (10 BLE x 2), Marching (10BLE x 2), Mini squats (10 x 2), Sit to Stand (10) Treatments BLE supine and standing exercises, transfers, ambulation. Assessment Patient is extremely nauseous at this time but agrees to exercises. Patient is stable during sit to stands and tolerates standing position well to perform exercises. Patient needs frequent rest breaks due to nausea and fatigue. Patient is steady during ambulation but uneasy and unwilling to leave room at this time due to nausea. PT Short Term Goals Short Term Goals Time Frame: Jul 11, 2019 PT Electrical Supervisor Goals Penitentiary Goals PT Electrical Supervisor Goals Time Frame: Aug 05, 2019 Roll Left & Right (QC): 6 Sit to Lying (QC): 6 Lying-Sitting on Side/Bed(QC): 6 Sit to Stand (QC): 6 Chair/Bdi-yv-Vgidq Xfer(QC): 6 Toilet Transfer (QC): 6 Car Transfer (QC): 6 Does the Patient Walk: Yes Walk 10 feet (QC): 6 Walk 50ft with 2 Turns (QC): 6 Walk 150 ft (QC): 6 Walking 10ft on Uneven Surface: 6 1 Step (curb) (QC): 6 Does the Pt use WC or Scooter?: No PT Plan Problem List Problem List: Activity Tolerance, Functional Strength, Safety, Balance, Gait, Transfer Treatment/Plan Treatment Plan: Continue Plan of Care Treatment Plan: Bed Mobility, Concurrent Therapy, Education, Functional Activity Abdiel, Functional Strength, Group Therapy, Gait, Safety, Therapeutic Exercise, Transfers Treatment Duration: Aug 05, 2019 Frequency: At least 5 of 7 days/Wk (IRF) Estimated Hrs Per Day: 1.5 hours per day Patient and/or Family Agrees t: Yes Safety Risks/Education Patient Education: Gait Training, Transfer Techniques Teaching Recipient: Patient Teaching Methods: Discussion Response to Teaching: Reinforcement Needed Time/GCodes Time In: 1415 Time Out: 1455 Total Billed Treatment Time: 40 Total Billed Treatment 1 visit FA (15 minutes) EX x 2 (25 minutes) NICO CHAVEZ PT Jul 11, 2019 15:01
[2019-07-11] MEDS: BISACODYL 10 MG SUPP (DULCOLAX) PR PRN (15:21)
[2019-07-11 16:00] VITALS: BP 144/64
[2019-07-11] MEDS: RIVAROXABAN 20 MG TABLET (XARELTO) PO SCH (17:16)
--- NOTE | 2019-07-11 19:15 | NUR ---
DR. GASCA NOTIFIED THAT PATIENT HAS NOT VOIDED SINCE MONSALVE CATHETER WAS DC'D AT 1000 THIS AM. BLADDER SCAN SHOWS 157 CC AT THIS TIME. PATIENT DENIES THE NEED TO VOID. ORDERS OBTAINED TO START IV FLUIDS AND BLADDER SCAN PRN. CONTINUED NAUSEA WITH SOME RELIEF FROM ZOFRAN.
[2019-07-11] MEDS: RT-ADVAIR HFA 45/21 MCG PER PUFF IH SCH (19:35)
[2019-07-11] MEDS: NS IV 1000 ML 1,000 ML IV SCH (20:26)
[2019-07-11 20:30] VITALS: BP 140/72
[2019-07-11] MEDS: polyethylene glycoL POWDER 17 GM (MIRALAX) PACK PO SCH (20:37)
[2019-07-11] MEDS: SENNA W/DOCUSATE (SENOKOT S) TABLET PO SCH (20:37)
[2019-07-11] MEDS: DOCUSATE SODIUM 100 MG (COLACE) CAP PO SCH (20:37)
[2019-07-11] MEDS: BENZONATATE 100 MG (TESSALON) CAPSULE PO SCH (20:39)
--- NOTE | 2019-07-11 20:54 | PM&R Post Admission Assessment ---
PM&R HP Date of Visit: Jul 11, 2019 Time of Visit: 12:30 History of Present Illness CC: Cardiac Debility HPI: This is an 83yoWF that has had significant decline requiring multiple hospital stays, [facility] [place] that required a stent placement by Dr. Reyez. Pt continued to have issues, multiple ER visits, and subsequently was admitted to the hospital for acute on chronic debilitated state. Dr. Reyez was able to modify a few of her medications, she did have significant delirium but her Troponin from small vessel disease did decrease and pt was able to regain a little bit of function but required inpatient rehab to get to prior level of functioning where she can get to go home and live with her family. At this current time pt feels like she needs to have a BM. We did have a suppository placed but that was immediately expelled so will initiate soap suds enema to try and clear that out today. Pt denies any pain and overall ready to get started in PT. Past Vpquijk-Hymfgy-Eujbgo Hx Past Med/Social Hx: Reviewed Nursing Past Med/Soc Hx, Reviewed and Corrections made Patient Social History Marrital Status: single Employed/Student: retired Alcohol Use: Denies Use Recreational Drug Use: No Smoking Status: Never a Smoker 2nd Hand Smoke Exposure: No Physical Abuse Screen: No Sexual Abuse: No Recent Foreign Travel: No Contact w/other who traveled: No Recent Hopitalizations: Yes (DISCHARGED FROM [facility] 06/30/19, ER VISITS 25, 27, 29) Recent Infectious Disease Expo: No Immunizations Up To Date Date of Pneumonia Vaccine: Nov 15, 2013 Date of Influenza Vaccine: Mar 07, 2019 Seasonal Allergies Seasonal Allergies: No Past Medical History Surgeries: Coronary Stent Cardiac: Atrial Fibrillation, Chronic Edema/Swelling, Coronary Artery Disease, High Cholesterol, Hypertension Endocrine: Hypothyroidsim History of Blood Disorders: No Family History CAD Under 55 Years Old, CAD Over 55 Years Old, Diabetes, Stroke Prior Level of Function Bed Mobility: 6 Transfers: 6 Gait: 6 Indoor Mobility (Ambulation): Independent Prior Devices Use: None Self Care: Independent Drive Self: Yes Current Level of Fuctioning Roll Left to Right: 6 Sit to Lyin Lying to Sitting/Side of Bed: 6 Sit to Stand: 4 Chair/Cti-hf-Piysd Xfer: 4 Car Transfer: 4 (Patient attempted putting feet in car first when instructed to perform like she normally does.) Does the Patient Walk: Yes Mode of Locomotion: Walk Anticipated Mode of Locomotion: Walk Walk 10 feet: 4 Walk 50 ft with 2 Turns: 4 Walk 150 ft: 4 Walking 10ft on uneven surface: 4 Gait Assistive Device: FWW Does the Pt Use a Wheelchair: No #of Steps: 1 1 Step (curb): 4 Walking Assistive Device: Walker Picking up an Object: 4 Eatin Oral Hygiene: 4 Shower/Bathe Self: 3 Upper Body Dressin Lower Body Dressin On/Off Footwear: 2 PM&R Allergy/Meds/Data Review Allergies Coded Allergies: Penicillins (Verified Allergy, Unknown, 07/21/18) propoxyphene (Verified Allergy, Unknown, 07/21/18) Home Medications Scheduled Amiodarone HCl (Amiodarone HCl), 200 MG PO BID, (Reported) Aspirin (Aspirin EC), 81 MG PO DAILY, (Reported) Atorvastatin Calcium (Atorvastatin Calcium), 40 MG PO 1800, (Reported) Benzonatate (Benzonatate), 100 MG PO TID, (Reported) Clopidogrel Bisulfate (Plavix), 75 MG PO DAILY, (Reported) Diltiazem HCl (Diltiazem HCl), 60 MG PO Q6H, (Reported) Fluticasone/Salmeterol (Advair 100-50 Diskus), 1 PUFF INH BID, (Reported) Furosemide (Furosemide), 40 MG PO DAILY, (Reported) Levothyroxine Sodium (Synthroid), 25 MCG PO 0500, (Reported) Magnesium Oxide (Magnesium Oxide), 400 MG PO DAILY, (Reported) Pantoprazole Sodium (Pantoprazole Sodium), 40 MG PO DAILY, (Reported) Potassium Chloride (Potassium Chloride), 20 MEQ PO DAILY, (Reported) Rivaroxaban (Xarelto), 20 MG PO 1800, (Reported) Scheduled PRN Albuterol Sulfate (Proair Hfa), 2 PUFF INH Q6H PRN for SHORTNESS OF BREATH, (Reported) Meclizine HCl (Meclizine HCl), 25 MG PO TID PRN for DIZZINESS, (Reported) Metoclopramide HCl (Metoclopramide HCl), 5 MG PO TID PRN for NAUSEA/VOMITING-3RD LINE, (Reported) Sennosides (Senna), 8.6 MG PO Q6H PRN for CONSTIPATION-5TH LINE, (Reported) Discontinued Medications Digoxin (Digoxin), 250 MCG PO DAILY, (Reported) Discontinued Reason: No Longer Taking Current Medications Current Medications Reviewed Review of Systems Constitutional: see HPI, dizziness, malaise, weakness Respiratory: dyspnea on exertion, short of breath Cardiovascular: chest pain Gastrointestinal: loss of appetite, nausea, vomiting Musculoskeletal: back pain, joint pain Psychiatric/Neurological: Anxiety, Depressed All Other Systems Reviewed Negative Unless Noted: Yes Physical Exam Physical Exam Vital Signs Vital Signs - First Documented 07/11/19 10:30 Temp 36.2 Pulse 85 Resp 20 B/P (MAP) 175/78 (110) Pulse Ox 97 O2 Delivery Room Air Capillary Refill : Height, Weight, BMI Height: 5'4.00" Weight: 190lbs. 0.7oz. [id number]; 36.12 BMI Method:Stated General Appearance: No Apparent Distress, WD/WN, Anxious, Chronically ill, Obese Eyes: Bilateral Eye Normal Inspection, Bilateral Eye PERRL HEENT: PERRL/EOMI, Normal ENT Inspection, Pharynx Normal Neck: Full Range of Motion, Normal Inspection, Non Tender, Supple, Carotid Bruit Respiratory: Chest Non Tender, Lungs Clear, Normal Breath Sounds, No Accessory Muscle Use, No Respiratory Distress, Decreased Breath Sounds Cardiovascular: Regular Rate, Rhythm, No Edema, No Gallop, No JVD, No Murmur, Normal Peripheral Pulses Gastrointestinal: Normal Bowel Sounds, No Organomegaly, No Pulsatile Mass, Non Tender, Soft Back: Normal Inspection, No CVA Tenderness, No Vertebral Tenderness Extremity: Normal Capillary Refill, Normal Inspection, Normal Range of Motion, Non Tender, No Calf Tenderness, No Pedal Edema Neurologic/Psychiatric: Alert, Oriented x3, No Motor/Sensory Deficits, Normal 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, 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, Motor Weakness (generalized weakness all extremities) Skin: Normal Color, Warm/Dry Lymphatic: No Adenopathy PM&R Medical Assessment & Plan REHAB/MEDICAL ASSESSMENT AND PLAN: REHAB IMPAIRMENT GROUP: Cardiac disability ETIOLOGIC DIAGNOSIS: Cardiac disability The comorbidities that impact the patients function and/or functional outcome by: advanced age, recent MO, CHF, AF, Delirium REHAB PLAN: The patient is being admitted to our comprehensive inpatient rehabilitation facility and can tolerate the intensity of service consisting of at least: 180 minutes of therapy a day, 5 out of 7 days a week Rehab treatment will consist of: PT OT ST will all help patient regain enough function in order to return home and regain independent ADL'S The patient/family has a good understanding of our discharge process and will benefit from an interdisciplinary inpatient rehabilitation program. The patient has potential to make improvement and is in need of at least two of the following multidisciplinary therapies including but not limited to physical, occupational, speech, and prosthetics and orthotics. Additionally the patient will need services from respiratory, nutritional services, wound care, psychology, etc. (Customize this to each patient). Given the patients complex condition and risk of further medical complications, rehabilitation services cannot be safely or effectively provided at a lower level of care such as a fpc facility. BARRIERS TO DISCHARGE: Advanced age and lives alone ESTIMATED LOS: 7 days DISPOSITION: Home RELEVANT CHANGES SINCE PREADMISSION SCREENING: I have compared the patients medical and functional status at the time of the preadmission screening and there are: no changes PROGNOSIS: Good REHABILITATION GOALS: 1. PT OT will help ambulation and wean O2 and regain strength in order to prevent falls All the above goals were reviewed with the patient and he/she is in agreement. By signing this document, I acknowledge that I have personally performed a full physical examination on this patient within 24 hours of admission to this inpatient rehabilitation facility and have determined the patient to be able to tolerate the above course of treatment at an intensive level for a reasonable period of time. I will be completing a detailed individualized Plan of Care for this patient by day #4 of the patients stay based upon the Preadmission Screen, the Post-Admission Evaluation, and the therapy evaluations. Admission Dx/Comorbidities: (1) Debility Status: Acute ICD Codes: R53.81 - Other malaise (2) NSTEMI (non-ST elevated myocardial infarction) Status: Acute ICD Codes: I21.4 - Non-ST elevation (NSTEMI) myocardial infarction (3) Angina at rest Status: Acute ICD Codes: I20.8 - Other forms of angina pectoris (4) Atrial fibrillation Status: Chronic ICD Codes: I48.91 - Unspecified atrial fibrillation (5) CAD (coronary artery disease) Status: Chronic ICD Codes: I25.10 - Atherosclerotic heart disease of [place] coronary artery without angina pectoris (6) Hypothyroidism Status: Chronic ICD Codes: E03.9 - Hypothyroidism, unspecified (7) HTN (hypertension) Status: Chronic ICD Codes: I10 - Essential (primary) hypertension (8) HLD (hyperlipidemia) Status: Chronic ICD Codes: E78.5 - Hyperlipidemia, unspecified (9) Acute kidney insufficiency Status: Resolved ICD Codes: N28.9 - Disorder of kidney and ureter, unspecified (10) DVT prophylaxis Status: Acute ICD Codes: Z29.9 - Encounter for prophylactic measures, unspecified (11) CHF (congestive heart failure) Status: Acute ICD Codes: I50.9 - Heart failure, unspecified (12) Duodenitis Status: Acute ICD Codes: K29.80 - Duodenitis without bleeding (13) Dyspepsia Status: Acute ICD Codes: R10.13 - Epigastric pain (14) Elevated brain natriuretic peptide (BNP) level Status: Acute ICD Codes: R79.89 - Other specified abnormal findings of blood chemistry ALICIA GASCA DO Jul 11, 2019 20:54
[2019-07-11] MEDS ORDERED: SENNA W/DOCUSATE (SENOKOT S) TABLET PO SCH (21:00)
[2019-07-11] MEDS ORDERED: AMIODARONE 200 MG (CORDARONE) TAB PO SCH (21:00)
[2019-07-11] MEDS ORDERED: NON-FORMULARY MEDICATION 1 EA EA (Fluticasone/Salmeterol (Advair 100-50 Diskus) 1 PUFF) INH SCH (21:00)
[2019-07-12] MEDS: ONDANSETRON 4 MG/2 ML (SDV) Z0FRAN IV PRN ×2 (00:11→04:07)
--- NOTE | 2019-07-12 00:15 | NUR ---
HAS BEEN SLEEPING. AWAKENED FOR MED. MEDICATED WITH IV ZOFRAN. BLADDER SCAN SHOWED 158 CC. ASSISTED UP TO BATHROOM AND VOIDED 158 CC. O2 ON AT 2L.
[2019-07-12 05:43] LABS: BASOPHILS % (AUTO) 1 % (0-10); EOSINOPHILS # (AUTO) 0.4 10^3/uL (0.0-0.3); EOSINOPHILS % (AUTO) 6 % (0-10); HEMATOCRIT 30 % (35-52); HEMOGLOBIN 10.2 G/DL (11.5-16.0); LYMPHOCYTES # (AUTO) 0.5 X 10^3 (1.0-4.0); LYMPHOCYTES % (AUTO) 9 % (12-44); MEAN CORPUSCULAR HEMOGLOBIN 29 PG (25-34); MEAN CORPUSCULAR HGB CONC 34 G/DL (32-36); MEAN CORPUSCULAR VOLUME 87 FL (80-99); MEAN PLATELET VOLUME 9.1 FL (7.4-10.4); MONOCYTES # (AUTO) 0.5 X 10^3 (0.0-1.0); MONOCYTES % (AUTO) 9 % (0-12); NEUTROPHILS # (AUTO) 4.3 X 10^3 (1.8-7.8); NEUTROPHILS % (AUTO) 76 % (42-75); PLATELET COUNT 282 10^3/uL (130-400); RED CELL DISTRIBUTION WIDTH 13.8 % (10.0-14.5); WHITE BLOOD COUNT 5.6 10^3/uL (4.3-11.0)
[2019-07-12 05:59] VITALS: BP 137/68
[2019-07-12 05:59] LABS: ALBUMIN 2.7 GM/DL (3.2-4.5); BILIRUBIN,TOTAL 0.6 MG/DL (0.1-1.0); CALCIUM 8.5 MG/DL (8.5-10.1); POTASSIUM 3.7 MMOL/L (3.6-5.0); TOTAL PROTEIN 5.3 GM/DL (6.4-8.2)
[2019-07-12] MEDS: LEVOTHYROXINE 25 MCG (LEVOTHROID) TAB PO SCH (05:59)
--- NOTE | 2019-07-12 06:45 | NUR ---
IV ZOFRAN AND PO REGLAN GAVE PATIENT SOME RELIEF, BUT STATES IS STILL MISERABLE WITH NAUSEA. DR. GASCA AND DR. TIDWELL NOTIFIED. NPO FOR ESOPHAGRAM TODAY AND WILL TRY PHENERGAN.
[2019-07-12] MEDS ORDERED: PROMETHAZINE INJ 25 MG/ML (PHENERGAN) AMP IVP NR (07:00)
[2019-07-12 08:28] VITALS: BP 156/79
[2019-07-12] MEDS: NS IV 1000 ML 1,000 ML IV SCH ×2 (08:30→20:34)
[2019-07-12] MEDS ORDERED: NON-FORMULARY MEDICATION 1 EA EA (Magnesium Oxide 400 MG) PO SCH (09:00)
[2019-07-12] MEDS: BENZONATATE 100 MG (TESSALON) CAPSULE PO SCH ×3 (09:00→20:35)
--- NOTE | 2019-07-12 09:00 | NUR ---
Spoke with Dr. Claire concerning patient's ongoing nausea and vomiting and inability to fully participate with therapies today. Dr. Claire is aware patient will not receive full therapy minutes today due to nausea and vomiting. Dr. Claire reports she has consulted Dr. Zheng and a barium swallow-esophagram is scheduled for today for severe nausea.
--- NOTE | 2019-07-12 09:05 | Physical Therapy Progress Note ---
Therapy Progress Note 0815am: Pt supine in bed, bedpan at side, nurse present. Pt stating she is very nauseated, every time she moves she begins dry heaving and throwing up. Pt declining therapy session this morning. Physician is aware. MARIELOS MAY PTA Jul 12, 2019 09:05
--- NOTE | 2019-07-12 09:10 | Consultation - Surgery ---
[facility] 07/12/19 0910: History of Present Illness History of Present Illness Patient Consulted On(devin/time) 07/12/19 09:04 Date Seen by Provider: Jul 12, 2019 Time Seen by Provider: 09:04 Reason for Visit: Dysphagia History of Present Illness This is an 83 y/o female with hx of several comorbidities who has been having N/V and dysphagia for the past week. She has not been able to eat since last night and is NPO at this time. She has not had this issue in the past. Denies abd pain, diarrhea, or constipation. Her other PMH includes Afib RVR, HTN, DM, HLD, hypothyroidism, CKD, obesity, and chronic peripheral edema. Allergies and Home Medications Allergies Coded Allergies: Penicillins (Verified Allergy, Unknown, 07/21/18) propoxyphene (Verified Allergy, Unknown, 07/21/18) Uncoded Allergies: AMIO (Adverse Reaction, Intermediate, Nausea, 07/12/19) Home Medications Albuterol Sulfate 1 Puff Puff, 2 PUFF INH Q6H PRN for SHORTNESS OF BREATH, (Reported) Amiodarone HCl 200 Mg Tablet, 200 MG PO BID, (Reported) Aspirin 81 Mg Tablet.dr, 81 MG PO DAILY, (Reported) Atorvastatin Calcium 40 Mg Tablet, 40 MG PO 1800, (Reported) LAST FILLED #90 7--19 Benzonatate 100 Mg Capsule, 100 MG PO TID, (Reported) Clopidogrel Bisulfate 75 Mg Tablet, 75 MG PO DAILY, (Reported) Diltiazem HCl 60 Mg Tablet, 60 MG PO Q6H, (Reported) Fluticasone/Salmeterol 1 Each Blst.w.dev, 1 PUFF INH BID, (Reported) Furosemide 40 Mg Tablet, 40 MG PO DAILY, (Reported) Levothyroxine Sodium 25 Mcg Tablet, 25 MCG PO 0500, (Reported) Magnesium Oxide 400 Mg Tablet, 400 MG PO DAILY, (Reported) Meclizine HCl 25 Mg Tablet, 25 MG PO TID PRN for DIZZINESS, (Reported) Metoclopramide HCl 5 Mg Tablet, 5 MG PO TID PRN for NAUSEA/VOMITING-3RD LINE, (Reported) Pantoprazole Sodium 40 Mg Tablet.dr, 40 MG PO DAILY, (Reported) Potassium Chloride 20 Meq Tab.er.prt, 20 MEQ PO DAILY, (Reported) Rivaroxaban 20 Mg Tablet, 20 MG PO 1800, (Reported) Sennosides 8.6 Mg Tablet, 8.6 MG PO Q6H PRN for CONSTIPATION-5TH LINE, (Reported) Past Bitvown-Zvqrpz-Zdknrq Hx Patient Social History Alcohol Use: Denies Use Recreational Drug Use: No Smoking Status: Never a Smoker 2nd Hand Smoke Exposure: No Recent Foreign Travel: No Contact w/Someone Who Travel: No Recent Infectious Disease Expo: No Recent Hopitalizations: Yes (DISCHARGED FROM [facility] 06/30/19, ER VISITS 25, 27, 29) Physical Abuse Screen: No Sexual Abuse: No Immunizations Up To Date Date of Pneumonia Vaccine: Nov 15, 2013 Date of Influenza Vaccine: Mar 07, 2019 Seasonal Allergies Seasonal Allergies: No Surgeries History of Surgeries: Yes (STENT X 3, NSTEMI) Surgeries: Coronary Stent Respiratory History of Respiratory Disorde: Yes Respiratory Disorders: Pneumonia, Sleep Apnea Cardiovascular History of Cardiac Disorders: Yes (Paroxysmal A Fib, CHF) Cardiac Disorders: Atrial Fibrillation, Chronic Edema/Swelling, Coronary Artery Disease, High Cholesterol, Hypertension Neurological History of Neurological Disord: No Genitourinary History of Genitourinary Disor: Yes (Stage 3 CKD) Gastrointestinal History of Gastrointestinal Di: No Musculoskeletal History of Musculoskeletal Dis: No Endocrine History of Endocrine Disorders: Yes (Dx "Prediabetes") Endocrine Disorders: Hypothyroidsim HEENT History of HEENT Disorders: No Cancer History of Cancer: No Psychosocial History of Psychiatric Problem: No Integumentary History of Skin or Integumenta: No Blood Transfusions History of Blood Disorders: No Family Medical History Significant Family History: CAD Under 55 Years Old, CAD Over 55 Years Old, Diabetes, Stroke Review of Systems-General Constitutional: No chills, No fever EENTM: no symptoms reported Respiratory: No cough, No dyspnea on exertion Cardiovascular: No chest pain; edema; No palpitations Gastrointestinal: No abdominal pain, No constipation, No diarrhea; dysphagia, nausea, vomiting Genitourinary: No dysuria, No frequency Musculoskeletal: no symptoms reported Skin: no symptoms reported Psychiatric/Neurological: No Symptoms Reported Physical Exam-General Problems Physical Exam Vital Signs Vital Signs - First Documented 07/11/19 07/11/19 10:30 19:35 Temp 36.2 Pulse 85 Resp 20 B/P (MAP) 175/78 (110) Pulse Ox 97 O2 Delivery Room Air O2 Flow Rate 2.00 Capillary Refill : Less Than 3 Seconds General Appearance: WD/WN, no apparent distress, other (somnolent, chronically ill) HEENT: normal ENT inspection, pharynx normal Neck: non-tender, full range of motion, normal inspection Respiratory: normal breath sounds, no respiratory distress, no accessory muscle use Cardiovascular: normal peripheral pulses, irregularly irregular Gastrointestinal: non tender, soft; No distended, No guarding, No rebound, No tenderness Extremities: non-tender, normal inspection, pedal edema Neurologic/Psychiatric: alert, oriented x 3 Skin: normal color, warm/dry Lymphatic: no adenopathy Data Review Labs Laboratory Tests 07/12/19 05:26: White Blood Count 5.6, Red Blood Count 3.49L, Hemoglobin 10.2L, Hematocrit 30L, Mean Corpuscular Volume 87, Mean Corpuscular Hemoglobin 29, Mean Corpuscular Hemoglobin Concent 34, Red Cell Distribution Width 13.8, Platelet Count 282, Mean Platelet Volume 9.1, Neutrophils (%) (Auto) 76H, Lymphocytes (%) (Auto) 9L, Monocytes (%) (Auto) 9, Eosinophils (%) (Auto) 6, Basophils (%) (Auto) 1, Neutrophils # (Auto) 4.3, Lymphocytes # (Auto) 0.5L, Monocytes # (Auto) 0.5, Eosinophils # (Auto) 0.4H, Basophils # (Auto) 0.0, Sodium Level 128L, Potassium Level 3.7, Chloride Level 98, Carbon Dioxide Level 22, Anion Gap 8, Blood Urea Nitrogen 10, Creatinine 1.00, Estimat Glomerular Filtration Rate 53, BUN/Creatinine Ratio 10, Glucose Level 104, Calcium Level 8.5, Corrected Calcium 9.5, Total Bilirubin 0.6, Aspartate Amino Transf (AST/SGOT) 32, Alanine Aminotransferase (ALT/SGPT) 48, Alkaline Phosphatase 128, Total Protein 5.3L, Albumin 2.7L Assessment/Plan Assessment/Plan Assessment/Plan Dysphagia w/ N/V HTN AFib RVR NIDM HLD, Hypothyroidism Obesity NPO Proceeded with esophagram which showed Generalized esophageal dysmotility, pt may benefit from a trial of Metoclopramide Will not do EGD at this time as pt is high risk 2/2 recent hx of stent placement and anticoagulation Sucralfate and PPI for sx control Will follow pt Clinical Quality Measures DVT/VTE Risk/Contraindication: Risk Factor Score Per Nursin RFS Level Per Nursing on Admit: 4+=Very High HOSEA ZHENG DO 07/12/19 1544: History of Present Illness History of Present Illness History of Present Illness Consult requested by Dr. Claire for nausea vomiting dysphagia. Patient with symptoms for the past week. When she tries to eat food, she begins gettin nausea and then sometimes have emesis. She states Phenergan has made her symptoms better. Patient is not having any abdominal pain. Denies fever sweats chills shortness of breath or chest pain. patient with recent stents and on antiplatelet therapy. Allergies and Home Medications Allergies Coded Allergies: Penicillins (Verified Allergy, Unknown, 07/21/18) propoxyphene (Verified Allergy, Unknown, 07/21/18) Uncoded Allergies: AMIO (Adverse Reaction, Intermediate, Nausea, 07/12/19) Home Medications Albuterol Sulfate 1 Puff Puff, 2 PUFF INH Q6H PRN for SHORTNESS OF BREATH, (Reported) Amiodarone HCl 200 Mg Tablet, 200 MG PO BID, (Reported) Aspirin 81 Mg Tablet.dr, 81 MG PO DAILY, (Reported) Atorvastatin Calcium 40 Mg Tablet, 40 MG PO 1800, (Reported) LAST FILLED #90 7-- Benzonatate 100 Mg Capsule, 100 MG PO TID, (Reported) Clopidogrel Bisulfate 75 Mg Tablet, 75 MG PO DAILY, (Reported) Diltiazem HCl 60 Mg Tablet, 60 MG PO Q6H, (Reported) Fluticasone/Salmeterol 1 Each Blst.w.dev, 1 PUFF INH BID, (Reported) Furosemide 40 Mg Tablet, 40 MG PO DAILY, (Reported) Levothyroxine Sodium 25 Mcg Tablet, 25 MCG PO 0500, (Reported) Magnesium Oxide 400 Mg Tablet, 400 MG PO DAILY, (Reported) Meclizine HCl 25 Mg Tablet, 25 MG PO TID PRN for DIZZINESS, (Reported) Metoclopramide HCl 5 Mg Tablet, 5 MG PO TID PRN for NAUSEA/VOMITING-3RD LINE, (Reported) Pantoprazole Sodium 40 Mg Tablet.dr, 40 MG PO DAILY, (Reported) Potassium Chloride 20 Meq Tab.er.prt, 20 MEQ PO DAILY, (Reported) Rivaroxaban 20 Mg Tablet, 20 MG PO 1800, (Reported) Sennosides 8.6 Mg Tablet, 8.6 MG PO Q6H PRN for CONSTIPATION-5TH LINE, (Reported) Patient Home Medication List Home Medication List Reviewed: Yes Past Ybzmkjm-Klrige-Conbcr Hx Reviewed Nursing Assessment Reviewed/Agree w Nursing PMH: Yes Family Medical History Significant Family History: No Pertinent Family Hx Review of Systems-General Constitutional: No chills, No fever EENTM: no symptoms reported Respiratory: cough, dyspnea on exertion Cardiovascular: edema; No palpitations Gastrointestinal: No abdominal pain, No constipation, No diarrhea; dysphagia, nausea, vomiting Genitourinary: no symptoms reported; No dysuria, No frequency Musculoskeletal: no symptoms reported; No back pain, No joint pain Skin: no symptoms reported; No change in color, No change in hair/nails Psychiatric/Neurological: No Symptoms Reported; Denies Anxiety, Denies Depressed Physical Exam-General Problems Physical Exam General Appearance: WD/WN, no apparent distress HEENT: PERRL/EOMI, normal ENT inspection, pharynx normal Neck: non-tender, full range of motion, normal inspection Respiratory: chest non-tender, no respiratory distress, no accessory muscle use Cardiovascular: normal peripheral pulses Gastrointestinal: non tender, soft; No distended, No guarding, No rebound, No tenderness Rectal: deferred Back: no CVA tenderness, no vertebral tenderness Extremities: non-tender, normal inspection Neurologic/Psychiatric: no motor/sensory deficits, alert, normal mood/affect, oriented x 3 Skin: normal color, warm/dry Lymphatic: no adenopathy Assessment/Plan Assessment/Plan Assessment/Plan Dysphagia w/ N/V HTN AFib RVR NIDM HLD, Hypothyroidism Obesity Ordered esophagram which demonstrated esophageal dysmotility, patient on reglan symptoms could be from GERD gastritis/ulcer but on Protonix and carafate patient unable to come off antiplatelet therapy but would not manager change by if gastritis/ulcer present so will keep on protonix carafate do not feel an egd at this time would change plan. phenergan prn see if symptoms improve diet as tolerates Supervisory-Addendum Brief Verification & Attestation Participated in pt care: history, MDM, physical Personally performed: exam, history, MDM, supervision of care Care discussed with: Medical Student Procedures: n/a Results interpretation: Verified all documentation Verification and Attestation of Medical Student E/M Service A medical student performed and documented this service in my presence. I reviewed and verified all information documented by the medical student and made modifications to such information, when appropriate. I personally performed the physical exam and medical decision making. Hosea Zheng, Jul 12, 2019,15:56 [facility] Jul 12, 2019 09:10 HOSEA ZHENG DO Jul 12, 2019 15:44
[2019-07-12] MEDS: RT-ADVAIR HFA 45/21 MCG PER PUFF IH SCH ×2 (09:45→19:44)
--- NOTE | 2019-07-12 09:48 | PM&R Progress Note ---
Subjective HPI/CC On Admission Date Seen by Provider: Jul 12, 2019 Time Seen by Provider: 09:30 Subjective/Events-last exam Pt still having difficulty with nausea and vomiting. Bowel sounds are present. Consulted Dr. Zheng who ordered esophagram. Pt did mention to me that she "wants to be left alone and allowed to sleep and fade away." I did notify her nurse who will discuss code status, in addition we will continue IV fluids, fluids restriction and see if we can modify her poor prognosis path and if needed I may need to reach out to the daughter and explain that if we fail here we will have to go to the half-way and Pt will likely continue to decline. On Wednesday when I was expecting her in inpatient rehab I did evaluate her to be possibly in that process but she actually improved a little bit, and became more alert, but she once again is appearing to be in-stage. Checked meds and labs Reviewed therapy notes Conferred with advertising columnist of Systems General: Fatigue Gastrointestinal: Nausea, Vomiting Neurological: Confusion Objective Exam Vital Signs Vital Signs Date Time Temp Pulse Resp B/P (MAP) Pulse Ox O2 Delivery O2 Flow Rate FiO2 07/12/19 17:55 36.2 66 16 159/77 (104) 99 Room Air 07/12/19 09:46 2.00 Capillary Refill : Less Than 3 Seconds General Appearance: WD/WN, Anxious, Chronically ill, Mild Distress, Obese HEENT: PERRL/EOMI, Normal ENT Inspection, Pharynx Normal Neck: Full Range of Motion, Normal Inspection, Non Tender, Supple, Carotid Bruit Respiratory: Chest Non Tender, Lungs Clear, Normal Breath Sounds, No Accessory Muscle Use, No Respiratory Distress, Decreased Breath Sounds Cardiovascular: Regular Rate, Rhythm, No Edema, No Gallop, No JVD, No Murmur, Normal Peripheral Pulses Gastrointestinal: Normal Bowel Sounds, No Organomegaly, No Pulsatile Mass, Non Tender, Soft Back: Normal Inspection, No CVA Tenderness, No Vertebral Tenderness Extremity: Normal Capillary Refill, Normal Inspection, Normal Range of Motion, Non Tender, No Calf Tenderness, No Pedal Edema Neurologic/Psychiatric: Alert, Oriented x3, No Motor/Sensory Deficits, Normal Mood/Affect, puppet maker II-XII Norm as Tested, Motor Weakness (generalized weakness all extremities) Skin: Normal Color, Warm/Dry Lymphatic: No Adenopathy Results/Procedures Lab Laboratory Tests 07/12/19 05:26 Patient resulted labs reviewed. FIM Transfers Therapy Code Descriptions/Definitions Functional Ira Measure: 0=Not Assessed/NA 4=Minimal Assistance 1=Total Assistance 5=Supervision or Setup 2=Maximal Assistance 6=Modified Ira 3=Moderate Assistance 7=Complete IndependenceSCALE: Activities may be completed with or without assistive devices. 9-Tqlqldujsc-evcarzi completes the activity by him/herself with no assistance from a helper. 5-Set-up or Clean-up Assistance-helper sets up or cleans up; patient completes activity. [place] assists only prior to or following the activity. 4-Supervision or Touching Assistance-helper provides verbal cues and/or touching/steadying and/or contact guard assistance as patient completes activity. Assistance may be provided throughout the activity or intermittently. 3-Partial/Moderate Assistance-helper does LESS THAN HALF the effort. [place] lifts, holds or supports trunk or limbs, but provides less than half the effort. 2-Substantial/Maximal Assistance-helper does MORE THAN HALF the effort. [place] lifts or holds trunk or limbs and provides more than half the effort. 3-Turogxcba-wtaqmv does ALL the effort. Patient does none of the effort to complete the activity. Or, the assistance of 2 or more helpers is required for the patient to complete the activity. If activity was not attempted, code reason: 7-Patient Refused. 9-Not Applicable-not attempted and the patient did not perform the activity before the current illness, exacerbation or injury. 10-Not Attempted due to Environmental Limitations-(lack of equipment, weather restraints, etc.). 88-Not Attempted due to Medical Conditions or Safety Concerns. Roll Left to Right (QC): 6 Sit to Lying (QC): 6 Sit to Stand (QC): 4 Chair/Rli-lf-Wgjda Xfer(QC): 4 Car Transfer (QC): 4 (Patient attempted putting feet in car first when instructed to perform like she normally does.) Gait Training Does the Patient Walk?: Yes Distance: 10' x 2 Walk 10 feet (QC): 4 Walk 50 ft with 2 Turns(QC): 4 Walk 150 ft (QC): 4 Walking 10ft/uneven surface-QC: 4 Gait Assistive Device: FWW Wheelchair Training Does the Pt Use a Wheelchair?: No Stair Training #of Steps: 1 1 Step (curb) (QC): 4 Balance Picking up an Object (QC): 4 ADL-Treatment Eating (QC): 6 Oral Hygiene (QC): 4 Shower/Bathe Self (QC): 3 Upper Body Dressing (QC): 5 Lower Body Dressing (QC): 3 On/Off Footwear (QC): 2 Assessment/Plan Assessment and Plan Assess & Plan/Chief Complaint Assessment: Cardiac debility s/p NSTEMI Severe debilitating nausea and vomiting Severe deconditioning CAD w/recent stent placement AF OAC CRI Hyponatremia Delirium Plan: IVF Fluid restriction Monitor closely Esophagram today Dr Reyez had minimized meds to help with nausea (1) Debility Status: Acute (2) NSTEMI (non-ST elevated myocardial infarction) Status: Acute (3) Angina at rest Status: Acute (4) Atrial fibrillation Status: Chronic (5) CAD (coronary artery disease) Status: Chronic (6) Hypothyroidism Status: Chronic (7) HTN (hypertension) Status: Chronic (8) HLD (hyperlipidemia) Status: Chronic (9) Acute kidney insufficiency Status: Resolved Resolution Date/Time: 07/10/19 @ 16:43 (10) DVT prophylaxis Status: Acute (11) CHF (congestive heart failure) Status: Acute (12) Duodenitis Status: Acute (13) Dyspepsia Status: Acute (14) Elevated brain natriuretic peptide (BNP) level Status: Acute ALICIA GASCA DO Jul 12, 2019 09:48
--- NOTE | 2019-07-12 09:48 | Individualized Plan of Care ---
Individualized Plan of Care Rehab Nursing IPOC Order Admission Date Jul 11, 2019 at 10:30 Current Orders Orders Admission Order(Inpt,Obs,Sdc) (07/11/19 09:55) Vital Signs: Per Unit Policy ( ,16,00 (07/11/19 09:55) Rafat Espino (07/11/19 09:55) Sequential Compression Device Q4H (07/11/19 09:55) Naphthalene Operator-Inpt Rehab Con (07/11/19 09:55) Rehab Nursing Orders-Ipoc (07/11/19 09:55) Physical Therapy Rehab Orders (07/11/19 09:55) Occupational Therapy Rehab Ord (07/11/19 09:55) Speech Therapy Rehab Orders (07/11/19 09:55) Cbc With Automated Diff (07/12/19 06:00) Comprehensive Metabolic Panel (07/12/19 06:00) Precautions (Aru) (07/11/19 09:55) Rehab-Intensity Of Therapy (07/11/19 09:55) Initiate Admission Nursing Pro .admission (07/11/19 09:55) Alprazolam Tablet (Xanax Tablet) (07/11/19 10:00) Calcium Carbonate Chew Tablet (Antacid C (07/11/19 10:00) Diphenhydramine Tablet (Benadryl Tablet) (07/11/19 10:00) Docusate Sodium Capsule (Colace Capsule) (07/11/19 21:00) Docusate Sodium Capsule (Colace Capsule) (07/11/19 10:00) Bisacodyl Suppository (Dulcolax Supposit (07/11/19 10:00) Lactulose Oral Solution (Enulose Oral So (07/11/19 10:00) Na Phos/Na Biphos Enema (Fleet Enema Orlin (07/11/19 10:00) Guaifenesin/Codeine Syrup (Robitussin Ac (07/11/19 10:00) Loperamide Tablet (Imodium Tablet) (07/11/19 10:00) Melatonin Tablet (Melatonin Tablet) (07/11/19 10:00) Polyethylene Glycol Powder Pkt (Miralax (07/11/19 21:00) Ondansetron Injection (Zofran Injectio (07/11/19 10:00) Ondansetron Oral Dissolve Tab (Zofran (07/11/19 10:00) Senna S Tablet (Senokot S Tablet) (07/11/19 21:00) Heart Healthy (07/11/19 Lunch) Soap Suds Enema Until Clear (07/11/19 09:55) Transfer - Bed/Room/Location (07/11/19 10:30) Patient Visit (07/11/19 ) Speech Sound Lang Comp (07/11/19 ) Ambulate 08,12,20 (07/11/19 14:23) Sequential Compression Device Q4H (07/11/19 14:23) Dvt/Vte Risk - Notifiy Physici Q4H (07/11/19 14:23) Amiodarone Tablet (Cordarone Tablet) (07/11/19 21:00) Aspirin Enteric Coated Tablet (Ecotrin T (07/12/19 09:00) Atorvastatin Tablet (Lipitor) (07/11/19 18:00) Benzonatate Capsule (Tessalon Perles) (07/11/19 21:00) Clopidogrel Tablet (Plavix Tablet) (07/12/19 09:00) Diltiazem Tablet (Cardizem Tablet) (07/11/19 18:00) Furosemide Tablet (Lasix Tablet) (07/12/19 09:00) Levothyroxine Tablet (Synthroid Tablet) (07/12/19 05:00) Meclizine Tablet (Antivert Tablet) (07/11/19 15:00) Metoclopramide Tablet (Reglan Tablet) (07/11/19 15:00) Pantoprazole Tablet (Protonix Tablet) (07/12/19 09:00) Potassium Chloride (Tablet) (K Dur Table (07/12/19 08:00) Rivaroxaban Tablet (Xarelto Tablet) (07/11/19 18:00) Sennosides Tablet (Senokot Tablet) (07/11/19 15:00) (Nf) Fluticasone/Salmeterol (Advair 100- (07/11/19 21:00) (Nf) Magnesium Oxide (07/12/19 09:00) Acetaminophen Tablet (Tylenol Tablet) (07/11/19 15:00) Calcium Carbonate Chew Tablet (Antacid C (07/11/19 15:00) Docusate Sodium Capsule (Colace Capsule) (07/11/19 15:00) Hydrocodone/Apap 5/325 Tablet (Lortab 5 (07/11/19 15:00) Loperamide Tablet (Imodium Tablet) (07/11/19 15:00) Melatonin Tablet (Melatonin Tablet) (07/11/19 15:00) Ondansetron Oral Dissolve Tab (Zofran (07/11/19 15:00) Senna S Tablet (Senokot S Tablet) (07/11/19 21:00) Patient Visit (07/11/19 ) Pt Eval Moderate Complexity (07/11/19 ) Exercise Therap, Ea 15 Min (07/11/19 ) Functional Activities, Ea 15 (07/11/19 ) Magnesium Oxide Tablet (Mag Ox Tablet) (07/12/19 08:00) Fluticasone/Salmeterol Common (Advair 45 (07/11/19 20:00) Ns Iv 1000 Ml (Sodium Chloride 0.9%) (07/11/19 19:30) Catheter(Uri) To Dependent Nimo (07/11/19 19:28) Consult Physician (07/12/19 03:52) Fluid Restriction (07/12/19 06:30) Promethazine Injection (Phenergan Injec (07/12/19 07:00) Nothing By Mouth (07/12/19 Lunch) Barium Swallow-Esophagram (07/12/19 07:31) Patient Visit (07/12/19 ) Self Care/Home Mgmt/Adl 15 Min (07/12/19 ) Exercise Therap, Ea 15 Min (07/12/19 ) Sucralfate Tablet (Carafate Tablet) (07/12/19 16:00) Barium For Suspension 96% W/W (Vanilla S (07/12/19 12:00) Barium For Suspension 98% W/W (Vanilla S (07/12/19 12:00) Consult Cardiology (07/12/19 12:16) Metoclopramide Tablet (Reglan Tablet) (07/12/19 21:00) Patient Visit (07/12/19 ) Gait Training, Ea 15 Min (07/12/19 ) Exercise Therap, Ea 15 Min (07/12/19 ) Heart Healthy (07/12/19 Dinner) Cbc With Automated Diff (07/13/19 06:00) Comprehensive Metabolic Panel (07/13/19 06:00) Rehab Nursing Orders: Ongoing Assess. of Cognitive Status, Ongoing Assess. of Function Status, Bladder Management, Bladder Scan, Bladder Training, Bowel Management, Bowel Training, Disease Management & Educaiton, DVT Prophylaxis, Fall Prevention, Fluid/Electrolyte/Nutrition Mgmt, Infection Prevention, Medication Management & Education, Management of Risks & Complications, Management of Skin Intergrity, Nutrition Management, Pain Management, Patient/Family Support, Safety Management, Swallow Precautions Intensity of Therapy to be met Patient to be seen: Min.3h per day/5 of 7d PT IPOC Problem List: Activity Tolerance, Functional Strength, Safety, Balance, Gait, Transfer Treatment Plan: Continue Plan of Care Bed Mobility, Concurrent Therapy, Education, Functional Activity Abdiel, Functional Strength, Group Therapy, Gait, Safety, Therapeutic Exercise, Transfers Treatment Duration: Aug 05, 2019 Frequency: At least 5 of 7 days/Wk (IRF) Estimated Hrs Per Day: 1.5 hours per day OT IPOC Problems: Decreased Activ Tolerance, Decreased UE Strength, Dependent Transfers, Impaired Funct Balance, Impaired I ADL's, Impaired Self-Care Skills OT Treatment, Training and Edu: Yes Plan of Care: ADL Retraining, Functional Mobility, Group Exercise/Act as Ind, UE Funct Exercise/Act Treatment Duration: Aug 01, 2019 Frequency: At least 5 of 7 days/Wk (IRF) Estimated Hrs Per Day: 1.[address] IPOC Speech Therapy Treatment Plan: Discontinue ST Treatment Duration: Jul 11, 2019 Frequency: 1 time per week Estimated Hrs Per Day: .25 hour per day Naphthalene Operator/Case Mgmt Naphthalene Operator/Case Managemen: Discharge Planning Dietitian/Computer Typesetter Keyliner Dietitian/Computer Typesetter Keyliner to monitor nutritional status and make changes and/or recommendations as needed and work with speech pathology on dietary upgrades as the occur. Physician IPOC Medical Issues being managed closely and that require the 24 hour availability of a physician: Recent NSTEMI with AF and continued nausea will require close monitoring from specialty care to prevent decompensation Medical Issues: Bowel/Bladder Function, DVT Prophylaxis, Falls Precautions, Fluid/Electrolyte/Nutrition Balance, Infection Protection, Pain Management Brief Synthesis of Preadmission Screen, Post-Admission Evaluation, and Therapy Evaluations: PT and OT will slowly increase activity in order to prevent nausea in order to regain function in order to return home Medical Prognosis: 7 days Anticipated Length of Stay: ALICIA Arroyo DO Jul 12, 2019 09:48
--- NOTE | 2019-07-12 10:59 | Occupational Ther Daily Note ---
OT Current Status-Daily Note Subjective On first attempt at 0915, pt refused therapy secondary to c/o nausea. RN and physician aware. On second attempt, pt sitting in chair and agrees to attempt therapy while seated. Pt denies pain. States she still has some nausea, but is feeling a little better. ADL-Treatment Pt completed grooming tasks while seated in chair. Pt combed hair, washed face, and completed oral care with set up and increased time. Pt takes rest breaks throughout ADL tasks. Therapy Code Descriptions/Definitions Functional [place] Measure: 0=Not Assessed/NA 4=Minimal Assistance 1=Total Assistance 5=Supervision or Setup 2=Maximal Assistance 6=Modified [place] 3=Moderate Assistance 7=Complete IndependenceSCALE: Activities may be completed with or without assistive devices. 0-Fwzxocljzc-giigrzc completes the activity by him/herself with no assistance from a helper. 5-Set-up or Clean-up Assistance-helper sets up or cleans up; patient completes activity. [place] assists only prior to or following the activity. 4-Supervision or Touching Assistance-helper provides verbal cues and/or touch ing/steadying and/or contact guard assistance as patient completes activity. Assistance may be provided throughout the activity or intermittently. 3-Partial/Moderate Assistance-helper does LESS THAN HALF the effort. Meta lifts, holds or supports trunk or limbs, but provides less than half the effort. 2-Substantial/Maximal Assistance-helper does MORE THAN HALF the effort. Meta lifts or holds trunk or limbs and provides more than half the effort. 3-Zfvwfxiep-vayahi does ALL the effort. Patient does none of the effort to complete the activity. Or, the assistance of 2 or more helpers is required for the patient to complete the activity. If activity was not attempted, code reason: 7-Patient Refused. 9-Not Applicable-not attempted and the patient did not perform the activity before the current illness, exacerbation or injury. 10-Not Attempted due to Environmental Limitations-(lack of equipment, weather restraints, etc.). 88-Not Attempted due to Medical Conditions or Safety Concerns. Oral Hygiene (QC): 5 Other Treatment Pt completed bilateral UE AROM exercises x10 reps at shoulder, elbow, forearm and wrist to increase strength and activity tolerance needed for functional task completion. Pt fatigues quickly and takes rest breaks between each exercise. 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 Pt sitting in chair with needs met after session. OT Care Home Goals Care Home Goals Time Frame: Aug 01, 2019 Eating (QC): 6 Oral Hygiene (QC): 6 Toileting Hygiene (QC): 6 Shower/Bathe Self (QC): 5 Upper Body Dressing (QC): 6 Lower Body Dressing (QC): 6 On/Off Footwear (QC): 6 Additional Goals: 1-Demonstrate ADL Tasks, 2-Verbalize Understanding, 3- ImproveStrength/Abdiel 1=Demonstrate adherence to instructed precautions during ADL tasks. 2=Patient will verbalize/demonstrate understanding of assistive devices/modifications for ADL. 3=Patient will improve strength/tolerance for activity to enable patient to perform ADL's. OT Education/Plan Discharge Recommendations Plan/Recommendations: Continue POC Treatment Plan/Plan of Care Patient would benefit from OT for education, treatment and training to promote independence in ADL's, mobility, safety and/or upper extremity function for ADL's. Plan of Care: ADL Retraining, Functional Mobility, Group Exercise/Act as Ind, UE Funct Exercise/Act Treatment Duration: Aug 01, 2019 Frequency: At least 5 of 7 days/Wk (IRF) Estimated Hrs Per Day: 1.5 hours per day Agreement: Yes Rehab Potential: Fair Time/GCodes Start Time: 10:05 Stop Time: 10:40 Total Time Billed (hr/min): 35 Billed Treatment Time 1 visit, ADL(15minutes), EX(20minutes) NANDO LOAIZA OT Jul 12, 2019 10:59
[2019-07-12] MEDS ORDERED: BARIUM for suspension 96% w/w (Vanilla Silq Medium Density) PO ONE (12:00)
[2019-07-12] MEDS ORDERED: BARIUM for suspension 98% w/w (Vanilla Silq High Density) PO ONE (12:00)
--- NOTE | 2019-07-12 13:02 | Diagnostic Imaging Report ---
INDICATION: Severe nausea. FINDINGS: Patient ingested thick barium and imaging over the esophagus was performed. 40 seconds of fluoroscopic time was utilized. Overall study is somewhat limited due to patient's lack of mobility. Esophagus has a fairly smooth contour. There is some generalized esophageal dysmotility but no discrete mass or stricture is seen. There is free passage of barium into the stomach. No hiatal hernia was demonstrated. No reflux was demonstrated. IMPRESSION: Generalized esophageal dysmotility. The study is otherwise unremarkable. Dictated by: Dictated on workstation # [id number]
--- NOTE | 2019-07-12 13:05 | Cardiology Progress Note ---
Subjective Date Seen by Provider: Jul 12, 2019 Time Seen by Provider: 13:00 Subjective/Events-last exam Patient sitting up in bed, reports episode of nausea yesterday. Denies any chest pain or dyspnea. Review of Systems General: No Chills, No Night Sweats; Fatigue, Malaise; No Appetite, No Other HEENT: No Head Aches, No Visual Changes, No Eye Pain, No Ear Pain, No Dy sphasia, No Sinus Congestion, No Post Nasal Drip, No Sore Throat, No Other Pulmonary: No Dyspnea, No Cough, No Pleuritic Chest Pain, No Other Cardiovascular: No: Chest Pain, Palpitations, Orthopnea, Paroxysmal Noc. Dyspnea, Edema, Lt Headedness, Other Gastrointestinal: Nausea, Vomiting Objective-Cardiology Exam Last Set of Vital Signs Vital Signs 07/12/19 07/12/19 08:28 09:46 Temp 36.8 Pulse 65 Resp 18 B/P (MAP) 156/79 (104) Pulse Ox 96 O2 Delivery Nasal Cannula O2 Flow Rate 2.00 Capillary Refill : Less Than 3 Seconds I&O Intake and Output 07/12/19 00:00 Intake Total 350 ml Balance 350 ml Intake Oral 350 ml Bladder Scan Volume Amount 157 ml # Bowel Movements 2 Daily Weight Change No General: Alert, Oriented X3, Cooperative HEENT: Atraumatic, PERRLA Neck: Supple, No JVD, No Thyromegaly Lungs: Clear to Auscultation, Normal Air Movement Heart: Regular Rate, Normal S1, Normal S2 Abdomen: Soft, No Tenderness Extremities: No Clubbing, Other (trace edema) Skin: No Rashes, No Significant Lesion Neuro: Normal Speech, Cranial Nerves 3-12 NL Psych/Mental Status: Mental Status NL, Mood NL Results Lab Laboratory Tests 07/12/19 05:26 A/P-Cardiology Admission Diagnosis Chest pain PAF CAD HTN Assessment/Plan Chest pain, mild elevation in troponin, diffuse abdominal pain, non-ST elevation myocardial infarction due to small vessel disease. Patient reports improvement of chest pain. Medical therapy is recommended. Abdominal pain, nausea and vomiting, diffuse discomfort, better after discontinuation of amiodarone and Lipitor, patient had episode of nausea after amiodarone given yesterday, I will discontinue amiodarone and Lipitor at this time and consider this medication as an allergy to the patient. Anxiety, depression, feeling better today. Continue on Zoloft and monitor Elevated BNP, echocardiogram showed left ventricular hypertrophy with hyperactive ventricle, gradient across the left ventricular outflow tract probably due to hypovolemia, chronic left ventricular diastolic dysfunction, hypertensive heart disease. Coronary artery disease, history of multiple interventions in the past, had a t otal of 3 stents. Underwent cardiac catheterization on November 15, 2018 revealing moderate stenosis at the ostium of the right coronary artery, heavily calcified. 2 stents in the mid right coronary artery are patent with small vessel disease distally. Calcified left main coronary artery is moderate stenosis, nonobstructive disease. Patent stents in the mid circumflex artery with no obstructive disease, mild disease in LAD. Underwent cardiac catheterization on June 29, 2019 with balloon angioplasty to the mid right coronary artery and stenting to the ostium of the right coronary artery using Maryann 3 x 15 mm stent expanded to 3.25 mm with excellent results, still have moderate stenosis at the mid left main, mid LAD and mid circumflex artery with small vessel disease. Persistent atrial fibrillation, maintained on Xarelto, amiodarone discontinued, continue to monitor High risk of bleed, patient is maintained on aspirin, Plavix and Xarelto, I will consider stopping Xarelto if needed Peripheral edema, better at this time. Upper respiratory infection, recently diagnosed and treated with steroids as outpatient. Continue to monitor. Hypertension, continue on home medication Hyperlipidemia, continue holding Lipitor. Monitor tolerance and response Carotid artery stenosis, mild bilateral nonobstructive disease per carotid duplex done December 2018 Prediabetes Patient was seen and evaluated with Cortney, examination performed, management plan was discussed, agree with the current scribed note, I made few changes to the note using Italic font Patient was seen at bedside, she has been having nausea and vomiting and general discomfort It seems that her amiodarone and Lipitor were restarted on transfer to rehabilitation, I will stop them again and monitor tolerance and response Clinical Quality Measures DVT/VTE Risk/Contraindication: Risk Factor Score Per Nursin RFS Level Per Nursing on Admit: 4+=Very High CORTNEY POWERS Jul 12, 2019 13:05 GEOFF THOMSON MD Jul 12, 2019 16:17
--- NOTE | 2019-07-12 13:37 | Occupational Ther Daily Note ---
OT Current Status-Daily Note Subjective Pt just returned from procedure of esophagus. Pt states that she has been dry heaving on the way back from procedure. Mental Status/Objective Patient Orientation: Person, Place, Time, Situation ADL-Treatment Pt requested to use bathroom then lay down. Assist to manipulate IV pole and tubing. SBA with ambulation using FWW. SBA to transfer to/from toilet with verbal cues for manipulation of IV tubing. Pt able to complete toileting hygiene and clothing manipulation with SBA using FWW and grabbars. Pt stood to wash hands with cleansing cloth. Pt ambulated back to bed and transferred into bed with SBA and assistance to manipulate IV tubing. Pt stated that she continues to feel nauseous and tired. Pt completed own bed mobility then closed eyes and fell asleep. After therapy, pt lying in bed with call light/phone in reach. All needs met in room. Therapy Code Descriptions/Definitions Functional [place] Measure: 0=Not Assessed/NA 4=Minimal Assistance 1=Total Assistance 5=Supervision or Setup 2=Maximal Assistance 6=Modified [place] 3=Moderate Assistance 7=Complete IndependenceSCALE: Activities may be completed with or without assistive devices. 8-Qowhvvmlox-dpiheww completes the activity by him/herself with no assistance from a helper. 5-Set-up or Clean-up Assistance-helper sets up or cleans up; patient completes activity. [place] assists only prior to or following the activity. 4-Supervision or Touching Assistance-helper provides verbal cues and/or touching/steadying and/or contact guard assistance as patient completes a ctivity. Assistance may be provided throughout the activity or intermittently. 3-Partial/Moderate Assistance-helper does LESS THAN HALF the effort. [place] lifts, holds or supports trunk or limbs, but provides less than half the effort. 2-Substantial/Maximal Assistance-helper does MORE THAN HALF the effort. [place] lifts or holds trunk or limbs and provides more than half the effort. 2-Totryzisj-yghdvh does ALL the effort. Patient does none of the effort to complete the activity. Or, the assistance of 2 or more helpers is required for the patient to complete the activity. If activity was not attempted, code reason: 7-Patient Refused. 9-Not Applicable-not attempted and the patient did not perform the activity before the current illness, exacerbation or injury. 10-Not Attempted due to Environmental Limitations-(lack of equipment, weather restraints, etc.). 88-Not Attempted due to Medical Conditions or Safety Concerns. Toileting Hygiene (QC): 4 Toilet Transfer (QC): 4 OT Fdc Goals Fdc Goals Time Frame: Aug 01, 2019 Eating (QC): 6 Oral Hygiene (QC): 6 Toileting Hygiene (QC): 6 Shower/Bathe Self (QC): 5 Upper Body Dressing (QC): 6 Lower Body Dressing (QC): 6 On/Off Footwear (QC): 6 Additional Goals: 1-Demonstrate ADL Tasks, 2-Verbalize Understanding, 3- ImproveStrength/Abdiel 1=Demonstrate adherence to instructed precautions during ADL tasks. 2=Patient will verbalize/demonstrate understanding of assistive devices/modifications for ADL. 3=Patient will improve strength/tolerance for activity to enable patient to perform ADL's. OT Education/Plan Problem List/Assessment Assessment: Decreased Activ Tolerance, Impaired I ADL's Discharge Recommendations Plan/Recommendations: Continue POC Treatment Plan/Plan of Care Patient would benefit from OT for education, treatment and training to promote independence in ADL's, mobility, safety and/or upper extremity function for ADL's. Plan of Care: ADL Retraining, Functional Mobility, Group Exercise/Act as Ind, UE Funct Exercise/Act Treatment Duration: Aug 01, 2019 Frequency: At least 5 of 7 days/Wk (IRF) Estimated Hrs Per Day: 1.5 hours per day Agreement: Yes Rehab Potential: Fair Time/GCodes Start Time: 11:05 Stop Time: 11:20 Total Time Billed (hr/min): 15 Billed Treatment Time 1 visit-ADL 1 (15 min) NIGHAT MAYORGA Jul 12, 2019 13:37
--- NOTE | 2019-07-12 14:49 | Physical Therapy Progress Note ---
Therapy Progress Note 1250pm: Attempted visit, pt off unit for medical test. Will attempt again later in afternoon. MARIELOS MAY [employer] Jul 12, 2019 14:49
--- NOTE | 2019-07-12 14:55 | Physical Therapy Daily Note ---
PT Daily Note-Current Subjective Pt agreeable to do whatever she can for PT session this afternoon although feeling very weak and nauseated still. Pain Numeric Pain Scale: 0-No Pain Appearance Upon arrival, pt in bed easily aroused. At end of session, pt sitting up in recliner with LE's elevated, phone, call light and bedside table within reach, began dry heaving and nurse arrived. Pt unable to tolerate any more therapy at this time. Mental Status Patient Orientation: Person, Place, Time, Eyes Open, Situation Attachments: IV Transfers SCALE: Activities may be completed with or without assistive devices. 9-Yqfvbkkkty-vwrfgrv completes the activity by him/herself with no assistance from a helper. 5-Set-up or Clean-up Assistance-helper sets up or cleans up; patient completes activity. [place] assists only prior to or following the activity. 4-Supervision or Touching Assistance-helper provides verbal cues and/or touching/steadying and/or contact guard assistance as patient completes activity. Assistance may be provided throughout the activity or intermittently. 3-Partial/Moderate Assistance-helper does LESS THAN HALF the effort. [place] lifts, holds or supports trunk or limbs, but provides less than half the effort. 2-Substantial/Maximal Assistance-helper does MORE THAN HALF the effort. [place] lifts or holds trunk or limbs and provides more than half the effort. 6-Lcxiwaryf-mmiszt does ALL the effort. Patient does none of the effort to com plete the activity. Or, the assistance of 2 or more helpers is required for the patient to complete the activity. If activity was not attempted, code reason: 7-Patient Refused. 9-Not Applicable-not attempted and the patient did not perform the activity before the current illness, exacerbation or injury. 10-Not Attempted due to Environmental Limitations-(lack of equipment, weather restraints, etc.). 88-Not Attempted due to Medical Conditions or Safety Concerns. Lying to Sitting/Side of Bed(Q: 4 Sit to Stand (QC): 4 Chair/Dcn-ud-Cxskp Xfer(QC): 4 CGA to SBA with all transitions, skilled inst req x1 for safety and technique, pt able to follow through rest of session. Gait Training Does the Patient Walk?: Yes Distance: 108 Walk 10 feet (QC): 4 Walk 50 ft with 2 Turns(QC): 4 Gait Persons Needed: 1 Gait Assistive Device: FWW slow pace, decreased step length and height, inconsistent speed, standing rest breaks, SOA Exercises Seated Therapy Exercises: Ankle pumps, Sit to stand, Long arc quads, Hip flexion, Hip abd/add Seated Reps: 20 Treatments education, safety, transfers, bed mobility, activity tolerance, functional mobility, gait Assessment decreased tolerance to activity this date due to nausea, dry heaves, SOA and weakness. PT Short Term Goals Short Term Goals Time Frame: Jul 11, 2019 PT Fdc Goals Fdc Goals PT Brand Sales Consultant Goals Time Frame: Aug 05, 2019 Roll Left & Right (QC): 6 Sit to Lying (QC): 6 Lying-Sitting on Side/Bed(QC): 6 Sit to Stand (QC): 6 Chair/Ufg-se-Gmyid Xfer(QC): 6 Toilet Transfer (QC): 6 Car Transfer (QC): 6 Does the Patient Walk: Yes Walk 10 feet (QC): 6 Walk 50ft with 2 Turns (QC): 6 Walk 150 ft (QC): 6 Walking 10ft on Uneven Surface: 6 1 Step (curb) (QC): 6 Does the Pt use WC or Scooter?: No PT Plan Treatment/Plan Treatment Plan: Continue Plan of Care Treatment Plan: Bed Mobility, Concurrent Therapy, Education, Functional Activity Abdiel, Functional Strength, Group Therapy, Gait, Safety, Therapeutic Exercise, Transfers Treatment Duration: Aug 05, 2019 Frequency: At least 5 of 7 days/Wk (IRF) Estimated Hrs Per Day: 1.5 hours per day Patient and/or Family Agrees t: Yes Safety Risks/Education Patient Education: Gait Training, Transfer Techniques, Safety Issues Teaching Recipient: Patient Teaching Methods: Demonstration, Discussion Response to Teaching: Verbalize Understanding, Return Demonstration Time/GCodes Time In: 1430 Time Out: 1455 Total Billed Treatment Time: 25 Total Billed Treatment 1 visit, GT x 10 min, EX x15 min MARIELOS MAY PTA Jul 12, 2019 14:55
[2019-07-12] MEDS: DOCUSATE SODIUM 100 MG (COLACE) CAP PO SCH ×2 (15:16→20:40)
[2019-07-12] MEDS: polyethylene glycoL POWDER 17 GM (MIRALAX) PACK PO SCH ×2 (15:16→20:40)
[2019-07-12] MEDS: MAGNESIUM OXIDE (MAG-OX)400 MG TAB PO SCH (15:16)
[2019-07-12] MEDS: FUROSEMIDE 40 MG (LASIX) TAB PO SCH (15:16)
[2019-07-12] MEDS: ASPIRIN E.C. 81 MG (ECOTRIN) TAB PO SCH (15:16)
[2019-07-12] MEDS: KCL 20 MEQ TAB (K-DUR) PO SCH (15:16)
[2019-07-12] MEDS: SENNA W/DOCUSATE (SENOKOT S) TABLET PO SCH ×2 (15:17→20:40)
[2019-07-12] MEDS: CLOPIDOGREL 75 MG (PLAVIX) TABLET PO SCH (15:17)
[2019-07-12] MEDS: PANTOPRAZOLE 40 MG (PROTONIX) TAB PO SCH (15:17)
--- NOTE | 2019-07-12 15:19 | NUR ---
Breathing tx's dc'd per order of Dr. Claire d/t nausea, along w Amiodarone dc'd by Dr. Reyez for nausea. MARLA Ortega of Dr. Reyez's asked that Amiodarone be placed on pt's Allergy list as an adverse reaction d/t nausea.
--- NOTE | 2019-07-12 15:34 | NUR ---
"RD ASSESSMENT PMHx: afib; CAD; HTN; CKD; DM; hypercholesterolemia PT INTERACTION: Pt was awake and pleasant during nutrition assessment. Pt states current appetite is poor and has been for some time. Note avg PO intake of <25% of meals, per chart review. Pt states following a regular diet at home and has no issues with chewing/swallowing food. Pt states recent issues with nausea, but not of vomiting, constipation or diarrhea. Note last BM was 2/5 and pt currently on bowel regimen of colace BID; senna BID; and miralax BID, per chart review. ABNORMAL NUTRITION-RELATED LAB VALUES LOW: Na 128; Pro 5.3; alb 2.7 HIGH: Est. kcal needs: 7130-1608 kcal | 15-18 kcal/kg Est. Pro needs: 74-93 g Pro | 0.8-1.0 g Pro/kg PES STATEMENT: Inadequate oral intake (NI-2.1) related to loss of appetite | nausea | NPO status as evidenced by pt interview | avg PO intake <25% of meals INTERVENTION: Note pt currently NPO, pending procedure. Would recommend advancing diet as medically able and as tolerated. Will continue to follow and reassess as pt needs and status change. MONITOR/EVALUATE: PO Intake; Plan of Care; Hydration Status; Weight Status; Lab Values Vonnie Terry, MS, RD, LD"
--- NOTE | 2019-07-12 15:43 | NUR ---
Received order from Dr. Zheng that pt can resume previous diet, but, to instruct pt to eat minimal amounts to see how tolerates.
[2019-07-12] MEDS: SUCRALFATE 1 GM (CARAFATE) TAB PO SCH ×2 (17:17→20:35)
--- NOTE | 2019-07-12 17:22 | NUR ---
Pt sleeping in recliner w legs elevated, awoken easily for Carafate. Pt took drink of water before taking Carafate to moisten mouth, lizette well. Pt states that she is feeling better, & not nauseated now.
[2019-07-12 17:55] VITALS: BP 159/77
[2019-07-12] MEDS: RIVAROXABAN 20 MG TABLET (XARELTO) PO SCH (18:14)
[2019-07-12] MEDS: METOCLOPRAMIDE 5 MG (REGLAN) TAB PO SCH (20:35)
[2019-07-13 05:04] VITALS: BP 146/76
[2019-07-13] MEDS: SUCRALFATE 1 GM (CARAFATE) TAB PO SCH ×4 (05:33→21:35)
[2019-07-13] MEDS: LEVOTHYROXINE 25 MCG (LEVOTHROID) TAB PO SCH (05:33)
[2019-07-13 07:24] LABS: BASOPHILS % (AUTO) 0 % (0-10); EOSINOPHILS # (AUTO) 0.3 10^3/uL (0.0-0.3); EOSINOPHILS % (AUTO) 4 % (0-10); HEMATOCRIT 32 % (35-52); HEMOGLOBIN 10.5 G/DL (11.5-16.0); LYMPHOCYTES # (AUTO) 0.6 X 10^3 (1.0-4.0); LYMPHOCYTES % (AUTO) 9 % (12-44); MEAN CORPUSCULAR HEMOGLOBIN 29 PG (25-34); MEAN CORPUSCULAR HGB CONC 33 G/DL (32-36); MEAN CORPUSCULAR VOLUME 88 FL (80-99); MEAN PLATELET VOLUME 8.8 FL (7.4-10.4); MONOCYTES # (AUTO) 0.5 X 10^3 (0.0-1.0); MONOCYTES % (AUTO) 8 % (0-12); NEUTROPHILS # (AUTO) 5.3 X 10^3 (1.8-7.8); NEUTROPHILS % (AUTO) 79 % (42-75); PLATELET COUNT 303 10^3/uL (130-400); RED CELL DISTRIBUTION WIDTH 14.3 % (10.0-14.5); WHITE BLOOD COUNT 6.8 10^3/uL (4.3-11.0)
[2019-07-13 07:46] LABS: ALBUMIN 2.8 GM/DL (3.2-4.5); BILIRUBIN,TOTAL 0.5 MG/DL (0.1-1.0); CALCIUM 8.6 MG/DL (8.5-10.1); CREATININE SERUM 1.05 MG/DL (0.60-1.30); POTASSIUM 3.6 MMOL/L (3.6-5.0); TOTAL PROTEIN 5.6 GM/DL (6.4-8.2)
--- NOTE | 2019-07-13 08:08 | Cardiology Progress Note ---
Subjective Date Seen by Provider: Jul 13, 2019 Time Seen by Provider: 08:06 Subjective/Events-last exam Patient sitting up in chair, states nausea has improved. Denies any chest pain or dyspnea. Objective-Cardiology Exam Last Set of Vital Signs Vital Signs 07/13/19 05:04 Temp 36.9 Pulse 67 Resp 16 B/P (MAP) 146/76 (99) Pulse Ox 97 O2 Delivery Nasal Cannula O2 Flow Rate 2.00 Capillary Refill : Less Than 3 Seconds I&O Intake and Output 07/13/19 00:00 Intake Total 2050 ml Output Total 1375 ml Balance 675 ml Intake Oral 1050 ml IV Total 1000 ml Output Urine Total 1375 ml Bladder Scan Volume Amount 158 ml 38 ml # Bowel Movements 2 General: Alert, Oriented X3, Cooperative HEENT: Atraumatic, PERRLA Neck: Supple, No JVD, No Thyromegaly Lungs: Clear to Auscultation, Normal Air Movement Heart: Regular Rate, Normal S1, Normal S2 Abdomen: Soft, No Tenderness Extremities: No Clubbing, Other (trace edema) Skin: No Rashes, No Significant Lesion Neuro: Normal Speech, Cranial Nerves 3-12 NL Psych/Mental Status: Mental Status NL, Mood NL Results Lab Laboratory Tests 07/13/19 07:13 A/P-Cardiology Admission Diagnosis Chest pain PAF CAD HTN Assessment/Plan Chest pain, mild elevation in troponin, diffuse abdominal pain, non-ST elevation myocardial infarction due to small vessel disease. Patient reports improvement of chest pain. Medical therapy is recommended. Abdominal pain, nausea and vomiting, diffuse discomfort, better after disconti nuation of amiodarone and Lipitor, patient had episode of nausea after amiodarone given, discontinued amiodarone and Lipitor at this time and consider this medication as an allergy to the patient. Anxiety, depression, feeling better today. Continue on Zoloft and monitor Elevated BNP, echocardiogram showed left ventricular hypertrophy with hyperactive ventricle, gradient across the left ventricular outflow tract probably due to hypovolemia, chronic left ventricular diastolic dysfunction, hypertensive heart disease. Coronary artery disease, history of multiple interventions in the past, had a total of 3 stents. Underwent cardiac catheterization on November 15, 2018 revealing moderate stenosis at the ostium of the right coronary artery, heavily calcified. 2 stents in the mid right coronary artery are patent with small vessel disease distally. Calcified left main coronary artery is moderate stenosis, nonobstructive disease. Patent stents in the mid circumflex artery with no obstructive disease, mild disease in LAD. Underwent cardiac catheterization on June 29, 2019 with balloon angioplasty to the mid right coronary artery and stenting to the ostium of the right coronary artery using Maryann 3 x 15 mm stent expanded to 3.25 mm with excellent results, still have moderate stenosis at the mid left main, mid LAD and mid circumflex artery with small vessel disease. Persistent atrial fibrillation, maintained on Xarelto, amiodarone discontinued, continue to monitor High risk of bleed, patient is maintained on aspirin, Plavix and Xarelto, I will consider stopping Xarelto if needed Peripheral edema, better at this time. Upper respiratory infection, recently diagnosed and treated with steroids as outpatient. Continue to monitor. Hypertension, continue on home medication Hyperlipidemia, continue holding Lipitor. Monitor tolerance and response Carotid artery stenosis, mild bilateral nonobstructive disease per carotid duplex done December 2018 Prediabetes Clinical Quality Measures DVT/VTE Risk/Contraindication: Risk Factor Score Per Nursin RFS Level Per Nursing on Admit: 4+=Very High CORTNEY POWERS Jul 13, 2019 08:08
--- NOTE | 2019-07-13 08:40 | PM&R Progress Note ---
Subjective HPI/CC On Admission Date Seen by Provider: Jul 13, 2019 Time Seen by Provider: 08:45 Subjective/Events-last exam Lipitor and Amiodarone were DC by Dr. 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 of being fair to poor Checked meds and labs Reviewed therapy notes Conferred with public health dentist of Systems General: Fatigue Pulmonary: Dyspnea Objective Exam Vital Signs Vital Signs Date Time Temp Pulse Resp B/P (MAP) Pulse Ox O2 Delivery O2 Flow Rate FiO2 07/13/19 17:14 36.9 74 20 135/65 (88) 99 Nasal Cannula 2.00 Capillary Refill : Less Than 3 Seconds General Appearance: WD/WN, Anxious, Chronically ill, Mild Distress, Obese HEENT: PERRL/EOMI, Normal ENT Inspection, Pharynx Normal Neck: Full Range of Motion, Normal Inspection, Non Tender, Supple, Carotid Bruit Respiratory: Chest Non Tender, Lungs Clear, Normal Breath Sounds, No Accessory Muscle Use, No Respiratory Distress, Decreased Breath Sounds Cardiovascular: Regular Rate, Rhythm, No Edema, No Gallop, No JVD, No Murmur, Normal Peripheral Pulses Gastrointestinal: Normal Bowel Sounds, No Organomegaly, No Pulsatile Mass, Non Tender, Soft Back: Normal Inspection, No CVA Tenderness, No Vertebral Tenderness Extremity: Normal Capillary Refill, Normal Inspection, Normal Range of Motion, Non Tender, No Calf Tenderness, No Pedal Edema Neurologic/Psychiatric: Alert, Oriented x3, No Motor/Sensory Deficits, Normal Mood/Affect, knuckle bender II-XII Norm as Tested, Motor Weakness (generalized weakness all extremities) Skin: Normal Color, Warm/Dry Lymphatic: No Adenopathy Results/Procedures Lab Laboratory Tests 07/13/19 07:13 Patient resulted labs reviewed. FIM Transfers Therapy Code Descriptions/Definitions Functional [place] Measure: 0=Not Assessed/NA 4=Minimal Assistance 1=Total Assistance 5=Supervision or Setup 2=Maximal Assistance 6=Modified [place] 3=Moderate Assistance 7=Complete IndependenceSCALE: Activities may be completed with or without assistive devices. 3-Atgspwharc-hihhvno completes the activity by him/herself with no assistance from a helper. 5-Set-up or Clean-up Assistance-helper sets up or cleans up; patient completes activity. [place] assists only prior to or following the activity. 4-Supervision or Touching Assistance-helper provides verbal cues and/or touching/steadying and/or contact guard assistance as patient completes activity. Assistance may be provided throughout the activity or intermittently. 3-Partial/Moderate Assistance-helper does LESS THAN HALF the effort. [place] lifts, holds or supports trunk or limbs, but provides less than half the effort. 2-Substantial/Maximal Assistance-helper does MORE THAN HALF the effort. [place] lifts or holds trunk or limbs and provides more than half the effort. 7-Knszmniko-ttugyy does ALL the effort. Patient does none of the effort to complete the activity. Or, the assistance of 2 or more helpers is required for the patient to complete the activity. If activity was not attempted, code reason: 7-Patient Refused. 9-Not Applicable-not attempted and the patient did not perform the activity before the current illness, exacerbation or injury. 10-Not Attempted due to Environmental Limitations-(lack of equipment, weather restraints, etc.). 88-Not Attempted due to Medical Conditions or Safety Concerns. Roll Left to Right (QC): 6 Sit to Lying (QC): 6 Sit to Stand (QC): 4 Chair/Pxr-vy-Nurxy Xfer(QC): 4 Car Transfer (QC): 4 (Patient attempted putting feet in car first when instructed to perform like she normally does.) Gait Training Does the Patient Walk?: Yes Distance: 108 Walk 10 feet (QC): 4 Walk 50 ft with 2 Turns(QC): 4 Walk 150 ft (QC): 4 Walking 10ft/uneven surface-QC: 4 Gait Persons Needed: 1 Gait Assistive Device: FWW Wheelchair Training Does the Pt Use a Wheelchair?: No Stair Training #of Steps: 1 1 Step (curb) (QC): 4 Balance Picking up an Object (QC): 4 ADL-Treatment Eating (QC): 6 Oral Hygiene (QC): 5 Shower/Bathe Self (QC): 3 Upper Body Dressing (QC): 5 Lower Body Dressing (QC): 3 On/Off Footwear (QC): 2 Toileting Hygiene (QC): 4 Toilet Transfer (QC): 4 Assessment/Plan Assessment and Plan Assess & Plan/Chief Complaint Assessment: Cardiac debility s/p NSTEMI Severe debilitating nausea and vomiting Severe deconditioning CAD w/recent stent placement AF OAC CRI Hyponatremia Delirium Plan: IVF HL Fluid restriction Monitor closely Esophagram reviewed Dr Reyez had minimized meds to help with nausea (1) Debility Status: Acute (2) NSTEMI (non-ST elevated myocardial infarction) Status: Acute (3) Angina at rest Status: Acute (4) Atrial fibrillation Status: Chronic (5) CAD (coronary artery disease) Status: Chronic (6) Hypothyroidism Status: Chronic (7) HTN (hypertension) Status: Chronic (8) HLD (hyperlipidemia) Status: Chronic (9) Acute kidney insufficiency Status: Resolved Resolution Date/Time: 07/10/19 @ 16:43 (10) DVT prophylaxis Status: Acute (11) CHF (congestive heart failure) Status: Acute (12) Duodenitis Status: Acute (13) Dyspepsia Status: Acute (14) Elevated brain natriuretic peptide (BNP) level Status: Acute ALICIA GASCA DO Jul 13, 2019 08:40
--- NOTE | 2019-07-13 08:55 | Physical Therapy Daily Note ---
PT Daily Note-Current Subjective Patient in recliner pre tx, agrees to PT, states she is feeling better, has no complaints of pain. Appearance Patient in recliner post tx with nurse call, phone, tray, all needs met. Mental Status Patient Orientation: Normal For Age Attachments: Oxygen, IV Transfers SCALE: Activities may be completed with or without assistive devices. 6-Nklwqukful-hhqhsse completes the activity by him/herself with no assistance from a helper. 5-Set-up or Clean-up Assistance-helper sets up or cleans up; patient completes activity. [place] assists only prior to or following the activity. 4-Supervision or Touching Assistance-helper provides verbal cues and/or touching/steadying and/or contact guard assistance as patient completes activity. Assistance may be provided throughout the activity or intermittently. 3-Partial/Moderate Assistance-helper does LESS THAN HALF the effort. [place] lifts, holds or supports trunk or limbs, but provides less than half the effort. 2-Substantial/Maximal Assistance-helper does MORE THAN HALF the effort. [place] lifts or holds trunk or limbs and provides more than half the effort. 9-Tmvfakgee-fpkljb does ALL the effort. Patient does none of the effort to complete the activity. Or, the assistance of 2 or more helpers is required for the patient to complete the activity. If activity was not attempted, code reason: 7-Patient Refused. 9-Not Applicable-not attempted and the patient did not perform the activity before the current illness, exacerbation or injury. 10-Not Attempted due to Environmental Limitations-(lack of equipment, weather restraints, etc.). 88-Not Attempted due to Medical Conditions or Safety Concerns. 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 Operator 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 Gang Hemstitching Machine Operator Goals PT Longterm Goals Time Frame: Aug 05, 2019 Roll Left & Right (QC): 6 Sit to Lying (QC): 6 Lying-Sitting on Side/Bed(QC): 6 Sit to Stand (QC): 6 Chair/Dlv-rr-Aordc Xfer(QC): 6 Toilet Transfer (QC): 6 Car Transfer (QC): 6 Does the Patient Walk: Yes Walk 10 feet (QC): 6 Walk 50ft with 2 Turns (QC): 6 Walk 150 ft (QC): 6 Walking 10ft on Uneven Surface: 6 1 Step (curb) (QC): 6 Does the Pt use WC or Scooter?: No PT Plan Problem List Problem List: Activity Tolerance, Functional Strength, Safety, Balance, Gait, Transfer, Bed Mobility Treatment/Plan Treatment Plan: Continue Plan of Care Treatment Plan: Bed Mobility, Concurrent Therapy, Education, Functional Activity Abdiel, Functional Strength, Group Therapy, Gait, Safety, Therapeutic Exercise, Transfers Treatment Duration: Aug 05, 2019 Frequency: At least 5 of 7 days/Wk (IRF) Estimated Hrs Per Day: 1.5 hours per day Patient and/or Family Agrees t: Yes Safety Risks/Education Patient Education: Gait Training, Transfer Techniques, Correct Positioning, Safety Issues Teaching Recipient: Patient Teaching Methods: Demonstration, Discussion Response to Teaching: Reinforcement Needed Time/GCodes Time In: 0800 Time Out: 0900 Total Billed Treatment Time: 60 Total Billed Treatment 1 visit GT 20' FA 10' EX 30' CONOR PEARSON PT Jul 13, 2019 08:55
[2019-07-13] MEDS: MAGNESIUM OXIDE (MAG-OX)400 MG TAB PO SCH (08:57)
[2019-07-13] MEDS: PANTOPRAZOLE 40 MG (PROTONIX) TAB PO SCH (08:57)
[2019-07-13] MEDS: ASPIRIN E.C. 81 MG (ECOTRIN) TAB PO SCH (08:57)
[2019-07-13] MEDS: CLOPIDOGREL 75 MG (PLAVIX) TABLET PO SCH (08:57)
[2019-07-13] MEDS: BENZONATATE 100 MG (TESSALON) CAPSULE PO SCH ×3 (08:58→21:38)
[2019-07-13] MEDS: DOCUSATE SODIUM 100 MG (COLACE) CAP PO SCH ×2 (08:58→21:35)
[2019-07-13] MEDS: KCL 20 MEQ TAB (K-DUR) PO SCH (08:58)
[2019-07-13] MEDS: FUROSEMIDE 40 MG (LASIX) TAB PO SCH (08:58)
[2019-07-13] MEDS: SENNA W/DOCUSATE (SENOKOT S) TABLET PO SCH ×2 (08:58→21:36)
[2019-07-13] MEDS: METOCLOPRAMIDE 5 MG (REGLAN) TAB PO SCH ×2 (08:58→21:38)
[2019-07-13] MEDS: NS IV 1000 ML 1,000 ML IV SCH (09:00)
[2019-07-13] MEDS: polyethylene glycoL POWDER 17 GM (MIRALAX) PACK PO SCH ×2 (09:00→21:38)
[2019-07-13 09:01] VITALS: BP 130/72
--- NOTE | 2019-07-13 09:02 | NUR ---
PATIENT REPORTS NAUSEA IS MUCH IMPROVED. ORDERS TO SALINE LOCK IVF PER DR. GASCA.
[2019-07-13] MEDS: RT-ADVAIR HFA 45/21 MCG PER PUFF IH SCH (09:15)
--- NOTE | 2019-07-13 10:52 | Progress Note - Surgery ---
[facility] 07/13/19 1052: Subjective Date Seen by a Provider: Jul 13, 2019 Time Seen by a Provider: 09:10 Subjective/Events-last exam Feeling better, reports having more energy to complete her PT. No abd pain, no further N/V. Reports her dysphagia and N/V resolved after she was given Metoclopramide. No further sx reported at this time. Review of Systems General: No Chills, No Night Sweats HEENT: No Head Aches, No Visual Changes Pulmonary: No Dyspnea, No Cough Cardiovascular: No: Chest Pain, Palpitations Gastrointestinal: No: Nausea, Vomiting, Abdominal Pain Objective Exam Vital Signs Date Time Temp Pulse Resp B/P (MAP) Pulse Ox O2 Delivery O2 Flow Rate FiO2 07/13/19 09:35 Nasal Cannula 2.00 07/13/19 09:15 97 Nasal Cannula 2.00 07/13/19 09:01 64 130/72 (91) 97 Nasal Cannula 2.00 07/13/19 05:04 36.9 67 16 146/76 (99) 97 Nasal Cannula 2.00 07/12/19 20:43 Nasal Cannula 2.00 07/12/19 19:44 98 Nasal Cannula 2.00 07/12/19 17:55 36.2 66 16 159/77 (104) 99 Nasal Cannula 2.00 I & O 07/13/19 07:00 Intake Total 1650 ml Output Total 1800 ml Balance -150 ml Capillary Refill : Less Than 3 Seconds General Appearance: WD/WN, Anxious, Chronically ill, Obese, Other (appears more lively compared to yesterday) HEENT: PERRL/EOMI, Normal ENT Inspection, Pharynx Normal Neck: Full Range of Motion, Normal Inspection, Non Tender, Supple, Carotid Bruit Respiratory: Chest Non Tender, Lungs Clear, No Accessory Muscle Use, No Respiratory Distress, Decreased Breath Sounds Cardiovascular: Regular Rate, Rhythm, No Edema, No Gallop, No JVD, No Murmur, Normal Peripheral Pulses Gastrointestinal: non tender, soft; No distended, No guarding, No rebound, No tenderness Extremity: Normal Capillary Refill, Normal Inspection, Normal Range of Motion, Non Tender, No Calf Tenderness, No Pedal Edema Neurologic/Psychiatric: Alert, Oriented x3, Normal Mood/Affect, package sorter II-XII Norm as Tested, Motor Weakness (generalized weakness all extremities) Skin: Normal Color, Warm/Dry Lymphatic: No Adenopathy Results Lab Laboratory Tests 07/13/19 07:13: White Blood Count 6.8, Red Blood Count 3.63L, Hemoglobin 10.5L, Hematocrit 32L, Mean Corpuscular Volume 88, Mean Corpuscular Hemoglobin 29, Mean Corpuscular Hemoglobin Concent 33, Red Cell Distribution Width 14.3, Platelet Count 303, Me an Platelet Volume 8.8, Neutrophils (%) (Auto) 79H, Lymphocytes (%) (Auto) 9L, Monocytes (%) (Auto) 8, Eosinophils (%) (Auto) 4, Basophils (%) (Auto) 0, Neutrophils # (Auto) 5.3, Lymphocytes # (Auto) 0.6L, Monocytes # (Auto) 0.5, Eosinophils # (Auto) 0.3, Basophils # (Auto) 0.0, Sodium Level 133L, Potassium Level 3.6, Chloride Level 102, Carbon Dioxide Level 24, Anion Gap 7, Blood Urea Nitrogen 8, Creatinine 1.05, Estimat Glomerular Filtration Rate 50, BUN/Creatinine Ratio 8, Glucose Level 136H, Calcium Level 8.6, Corrected Calcium 9.6, Total Bilirubin 0.5, Aspartate Amino Transf (AST/SGOT) 33, Alanine Aminotransferase (ALT/SGPT) 47, Alkaline Phosphatase 127, Total Protein 5.6L, Albumin 2.8L Assessment/Plan Assessment/Plan Assessment/Plan Dysphagia w/ N/V HTN AFib RVR NIDM HLD, Hypothyroidism Obesity Esophagogram demonstrated esophageal dysmotility, no strictures, reflux or hiatal hernia, patient on reglan symptoms could be from GERD gastritis/ulcer but on Protonix and carafate patient unable to come off antiplatelet therapy but would not exchange mechanic by if gastritis/ulcer present so will keep on protonix carafate do not feel an egd at this time would change plan. phenergan prn Small, but frequent meals Continue medical management with Reglan, Sucralfate, and Protonix. No further surgical intervention indicated at this time. Will sign off. Would be happy to consult again if need be. Clinical Quality Measures DVT/VTE Risk/Contraindication: Risk Factor Score Per Nursin RFS Level Per Nursing on Admit: 4+=Very High MICHAEL ZHENG DO 07/13/19 1111: Subjective Subjective/Events-last exam No more nausea or emesis. tolerating diet. no abdominal pain or dysphagia. no new complaints. Objective Exam General Appearance: No Apparent Distress, WD/WN HEENT: PERRL/EOMI Neck: Full Range of Motion, Non Tender Respiratory: Chest Non Tender, No Accessory Muscle Use, No Respiratory Distress, Decreased Breath Sounds Cardiovascular: Regular Rate, Rhythm Gastrointestinal: non tender, soft; No distended, No guarding, No rebound, No tenderness Extremity: Normal Capillary Refill, Normal Inspection, Normal Range of Motion, Non Tender, No Calf Tenderness Neurologic/Psychiatric: Alert, Oriented x3, Normal Mood/Affect, package sorter II-XII Norm as Tested Skin: Normal Color, Warm/Dry Lymphatic: No Adenopathy Assessment/Plan Assessment/Plan Assessment/Plan Dysphagia w/ N/V HTN AFib RVR NIDM HLD, Hypothyroidism Obesity patient tolerating diet and n/v resolved will sign off call if needed. Supervisory-Addendum Brief Verification & Attestation Participated in pt care: history, MDM, physical Personally performed: exam, history, MDM, supervision of care Care discussed with: Medical Student Procedures: n/a Results interpretation: Verified all documentation Verification and Attestation of Medical Student E/M Service A medical student performed and documented this service in my presence. I reviewed and verified all information documented by the medical student and made modifications to such information, when appropriate. I personally performed the physical exam and medical decision making. Michael Zheng, Jul 13, 2019,11:10 [facility] Jul 13, 2019 10:52 MICHAEL ZHENG DO Jul 13, 2019 11:11
[2019-07-13 11:18] VITALS: BP 150/84
--- NOTE | 2019-07-13 11:27 | Occupational Ther Daily Note ---
OT Current Status-Daily Note Subjective Pt alert, in bathroom with nrsg. Pt agrees to therapy. No c/o pain. Pt is SOA throughout session and requires lengthy recovery breaks. Mental Status/Objective Patient Orientation: Person, Place, Time, Situation Attachments: IV ADL-Treatment Pt transferred on/off toilet, mod I. Completed toileting and hygiene using FWW and grabbars, mod I. Pt then transferred into shower using FWW, grabbars and shower bench, SBA. Pt completed shower with supervision using FWW, hand held shower, grabbars and shower bench. Pt will need long handle sponge to thoroughly cleanse feet. After set up, pt able to don/doff upper body clothing by self. After set up, pt able to doff clothing by self then dons pants/underpants by self. Pt doffs socks by self, assist to don socks then educated pt on using sock aide. Pt demonstrated understanding of sock aide, will need continued skilled instructions to be efficient. Pt stood at sink to complete oral care, supervision. Educated pt on energy conservation techniques for daily tasks. Pt verbalized own strategies and understanding with topic. Therapy Code Descriptions/Definitions Functional [place] Measure: 0=Not Assessed/NA 4=Minimal Assistance 1=Total Assistance 5=Supervision or Setup 2=Maximal Assistance 6=Modified [place] 3=Moderate Assistance 7=Complete IndependenceSCALE: Activities may be completed with or without assistive devices. 2-Wcntymnxpr-xogbmat completes the activity by him/herself with no assistance from a helper. 5-Set-up or Clean-up Assistance-helper sets up or cleans up; patient completes activity. [place] assists only prior to or following the activity. 4-Supervision or Touching Assistance-helper provides verbal cues and/or touching/steadying and/or contact guard assistance as patient completes activity. Assistance may be provided throughout the activity or intermittently. 3-Partial/Moderate Assistance-helper does LESS THAN HALF the effort. [place] lifts, holds or supports trunk or limbs, but provides less than half the effort. 2-Substantial/Maximal Assistance-helper does MORE THAN HALF the effort. [place] lifts or holds trunk or limbs and provides more than half the effort. 0-Vcnjdillr-zwutvp does ALL the effort. Patient does none of the effort to complete the activity. Or, the assistance of 2 or more helpers is required for the patient to complete the activity. If activity was not attempted, code reason: 7-Patient Refused. 9-Not Applicable-not attempted and the patient did not perform the activity before the current illness, exacerbation or injury. 10-Not Attempted due to Environmental Limitations-(lack of equipment, weather restraints, etc.). 88-Not Attempted due to Medical Conditions or Safety Concerns. Oral Hygiene (QC): 4 Shower/Bathe Self (QC): 4 Upper Body Dressing (QC): 5 Lower Body Dressing (QC): 5 On/Off Footwear: 3 Toileting Hygiene (QC): 6 Toilet Transfer (QC): 6 Other Treatment B UE exercises completed, skilled instruction to complete with correct technique required. Pt completed medium resistance therapy sponge exercises (1 set 20 reps) to increase mottler operator and pinch for daily functional tasks. UE dowel linnea exercises completed to increase UE strength and AROM, 3 sets 10 reps of 3 exercises. Pt required recovery breaks between each set due to SOA and decreased activity tolerance. After therapy, pt sitting in recliner with call light/phone in reach. All needs met in room. Nrsg in room. OT Fdc Goals Deckhand Tuna Boat Goals Time Frame: Aug 01, 2019 Eating (QC): 6 Oral Hygiene (QC): 6 Toileting Hygiene (QC): 6 Shower/Bathe Self (QC): 5 Upper Body Dressing (QC): 6 Lower Body Dressing (QC): 6 On/Off Footwear (QC): 6 Additional Goals: 1-Demonstrate ADL Tasks, 2-Verbalize Understanding, 3- ImproveStrength/Abdiel 1=Demonstrate adherence to instructed precautions during ADL tasks. 2=Patient will verbalize/demonstrate understanding of assistive devices/modifications for ADL. 3=Patient will improve strength/tolerance for activity to enable patient to perform ADL's. OT Education/Plan Problem List/Assessment Assessment: Decreased Activ Tolerance, Decreased UE Strength, Impaired Self- Care Skills Discharge Recommendations Plan/Recommendations: Continue POC Treatment Plan/Plan of Care Patient would benefit from OT for education, treatment and training to promote independence in ADL's, mobility, safety and/or upper extremity function for ADL's. Plan of Care: ADL Retraining, Functional Mobility, Group Exercise/Act as Ind, UE Funct Exercise/Act Treatment Duration: Aug 01, 2019 Frequency: At least 5 of 7 days/Wk (IRF) Estimated Hrs Per Day: 1.5 hours per day Agreement: Yes Rehab Potential: Fair Time/GCodes Start Time: 10:00 Stop Time: 11:30 Total Time Billed (hr/min): 90 Billed Treatment Time 1 visit-ADL 4 (60 min) FA 1 (15 min) EX 1 (15 min) NIGHAT MAYORGA Jul 13, 2019 11:27
--- NOTE | 2019-07-13 13:24 | Occupational Ther Daily Note ---
OT Current Status-Daily Note Subjective Pt alert, sitting in recliner. Pt agrees to therapy. States that she is tired, no c/o pain. Mental Status/Objective Patient Orientation: Person, Place, Time Attachments: IV ADL-Treatment Therapy Code Descriptions/Definitions Functional [place] Measure: 0=Not Assessed/NA 4=Minimal Assistance 1=Total Assistance 5=Supervision or Setup 2=Maximal Assistance 6=Modified [place] 3=Moderate Assistance 7=Complete IndependenceSCALE: Activities may be completed with or without assistive devices. 4-Qvowvmvrcx-bjplbnw completes the activity by him/herself with no assistance from a helper. 5-Set-up or Clean-up Assistance-helper sets up or cleans up; patient completes activity. [place] assists only prior to or following the activity. 4-Supervision or Touching Assistance-helper provides verbal cues and/or touching/steadying and/or contact guard assistance as patient completes activity. Assistance may be provided throughout the activity or intermittently. 3-Partial/Moderate Assistance-helper does LESS THAN HALF the effort. [place] lifts, holds or supports trunk or limbs, but provides less than half the effort. 2-Substantial/Maximal Assistance-helper does MORE THAN HALF the effort. [place] lifts or holds trunk or limbs and provides more than half the effort. 4-Rrheqzcju-dwftiy does ALL the effort. Patient does none of the effort to complete the activity. Or, the assistance of 2 or more helpers is required for the patient to complete the activity. If activity was not attempted, code reason: 7-Patient Refused. 9-Not Applicable-not attempted and the patient did not perform the activity before the current illness, exacerbation or injury. 10-Not Attempted due to Environmental Limitations-(lack of equipment, weather restraints, etc.). 88-Not Attempted due to Medical Conditions or Safety Concerns. Other Treatment Pt educated on dressing stick to doff socks and don pants, tower observer to assist with dressing also. Pt verbalized understanding of each piece of equipment. Pt given light resistance theraband to increase UE strength for daily functional tasks. Skilled instruction given for correct technique on 2 UE exercises. Pt was able to complete 1 set 6 reps without difficulty. Pt ambulated to large shower room to work on tub/shower transfers. Pt stated that she has tub/shower at home and has only a tub bench. She also stated that she has been stepping into tub. Due to decreased activity tolerance and weakness, pt was introduced and educated on tub transfer bench. Pt required verbal cues on FWW placement during transfer, tends to push it out of the way before sitting down then stepping around it. Pt had difficulty with lifting LE's into/out of tub. Pt stated that she was to weak to try stepping into tub. After therapy, pt sitting in recliner with call light/phone in reach. All needs met in room. Education OT Patient Education: Exercise program, Modified ADL techniques, Transfer techniques, Use of adapted equipment Teaching Recipient: Patient Teaching Methods: Demonstration, Discussion Response to Teaching: Verbalize Understanding, Return Demonstration, Reinforcement Needed OT [employer] Skills Goals Care Home Goals Time Frame: Aug 01, 2019 Eating (QC): 6 Oral Hygiene (QC): 6 Toileting Hygiene (QC): 6 Shower/Bathe Self (QC): 5 Upper Body Dressing (QC): 6 Lower Body Dressing (QC): 6 On/Off Footwear (QC): 6 Additional Goals: 1-Demonstrate ADL Tasks, 2-Verbalize Understanding, 3- ImproveStrength/Abdiel 1=Demonstrate adherence to instructed precautions during ADL tasks. 2=Patient will verbalize/demonstrate understanding of assistive devices/modifications for ADL. 3=Patient will improve strength/tolerance for activity to enable patient to perform ADL's. OT Education/Plan Problem List/Assessment Assessment: Decreased Activ Tolerance, Decreased UE Strength, Impaired Self- Care Skills Discharge Recommendations Plan/Recommendations: Continue POC Treatment Plan/Plan of Care Patient would benefit from OT for education, treatment and training to promote independence in ADL's, mobility, safety and/or upper extremity function for ADL's. Plan of Care: ADL Retraining, Functional Mobility, Group Exercise/Act as Ind, UE Funct Exercise/Act Treatment Duration: Aug 01, 2019 Frequency: At least 5 of 7 days/Wk (IRF) Estimated Hrs Per Day: 1.5 hours per day Agreement: Yes Rehab Potential: Fair Time/GCodes Start Time: 12:55 Stop Time: 13:25 Total Time Billed (hr/min): 30 Billed Treatment Time 1 visit-FA 1 (20 min) EX 1 (10 min) NIGHAT MAYORGA Jul 13, 2019 13:24
--- NOTE | 2019-07-13 13:26 | NUR ---
CM/SS ADMISSION and WEEKLY TEAM CONFERENCE SUMMARY Patient admitted to ARU 07/11/19 with diagnosis of chest pain/afib, NSTEMI due to small vessel disease/CAD. Long continuum from 06/10/19 to present, hospitalization at [facility] 06/10-06/21/19, cardiac cath with stenting at [facility] 06/29/19, [facility] ER visits x 3 prior to readmission. Patient was IADL prior to initial onset early June, then used a FWW for ambulation because of general decline. Patient has resided with her daughter and son in [place], for about 7 years, moving from [place] to be with them. The plan is for her return there when stable and safe for discharge. HHC: Patient was current with [facility] for RN/PT/OT, patient/family would like this resumed if it is appropriate to patient post hospital care plan. DME: Recent acquisition of FWW upon discharge from [facility]. Additionally, patient has hospital bed twin size, ADA handicap toilet, grab bars in shower/bath, shower chair, outdoor ramp over steps. Patient's son in [place], is a construction driver and has upgraded things at their home on her behalf. PCP: ALLEN Lopez APRN, Dr. Ojeda, [facility]. Pump Installation And Servicer is Dr. Reyez [place]. PHARMACY: [facility], [facility] mail order. CONTACTS: Patient has 4 children. Rebecca Torres (Jim), Daughter [address] [place] [address] Harrison Torres Grandson [address] [place] [address] Kadeem Bosch, Son [place] Shamir Bosch, Son [place], [place] Leonie Alenadoris, Son [place] Discussed Weekly Team Conference Summary, patient understands the purpose of the interdisciplinary team. She is in agreement to continue her stay and to a review of her progress/status next Wednesday. Visited with Rebecca by phone, provided fiction and nonfiction prose writer contact information and open door availability.
--- NOTE | 2019-07-13 15:26 | Physical Therapy Daily Note ---
PT Daily Note-Current Subjective Patient agreeable to therapy at this time. Pain Numeric Pain Scale: 0-No Pain Appearance Patient in recliner with call light and bedside table within reach. Mental Status Patient Orientation: Normal For Age Transfers SCALE: Activities may be completed with or without assistive devices. 1-Zxmokyjlmt-ehhuobz completes the activity by him/herself with no assistance from a helper. 5-Set-up or Clean-up Assistance-helper sets up or cleans up; patient completes activity. [place] assists only prior to or following the activity. 4-Supervision or Touching Assistance-helper provides verbal cues and/or touching/steadying and/or contact guard assistance as patient completes activity. Assistance may be provided throughout the activity or intermittently. 3-Partial/Moderate Assistance-helper does LESS THAN HALF the effort. [place] lifts, holds or supports trunk or limbs, but provides less than half the effort. 2-Substantial/Maximal Assistance-helper does MORE THAN HALF the effort. [place] lifts or holds trunk or limbs and provides more than half the effort. 6-Jyxlzpyrp-ujpaqr does ALL the effort. Patient does none of the effort to complete the activity. Or, the assistance of 2 or more helpers is required for the patient to complete the activity. If activity was not attempted, code reason: 7-Patient Refused. 9-Not Applicable-not attempted and the patient did not perform the activity before the current illness, exacerbation or injury. 10-Not Attempted due to Environmental Limitations-(lack of equipment, weather restraints, etc.). 88-Not Attempted due to Medical Conditions or Safety Concerns. Sit to Stand (QC): 4 Gait Training Does the Patient Walk?: Yes Distance: 150' x 2 Walk 10 feet (QC): 4 Walk 50 ft with 2 Turns(QC): 4 Walk 150 ft (QC): 4 Gait Assistive Device: FWW SBA. Patient is steady during ambulation but fatigues quickly. Wheelchair Training Does the Pt Use a Wheelchair?: No Exercises Seated Therapy Exercises: Ankle pumps (20BLE), Long arc quads (20BLE), Hip flexion (20BLE) Standing: Hip Abduction (10BLE x 2), Hamstring curls (10BLE x 2), Heel/toe raises (20BLE x 2), Marching (10BLE x 2), Mini squats (10 x 2) Treatments BLE exercises, transfers, ambulation. Assessment Current Status: Good Progress Patient was steady during ambulation but fatigued quickly. Patient tolerated exercises well. Patient stated she did not want to wear her oxygen at this time. Patient O2 stats after ambulating and seated exercises 94%, post treatment 95% without oxygen. Patient put oxygen back on after session. PT Short Term Goals Short Term Goals Time Frame: Jul 11, 2019 PT Half-Way Goals Half-Way Goals PT Half-Way Goals Time Frame: Aug 05, 2019 Roll Left & Right (QC): 6 Sit to Lying (QC): 6 Lying-Sitting on Side/Bed(QC): 6 Sit to Stand (QC): 6 Chair/Ucp-la-Fyvlc Xfer(QC): 6 Toilet Transfer (QC): 6 Car Transfer (QC): 6 Does the Patient Walk: Yes Walk 10 feet (QC): 6 Walk 50ft with 2 Turns (QC): 6 Walk 150 ft (QC): 6 Walking 10ft on Uneven Surface: 6 1 Step (curb) (QC): 6 Does the Pt use WC or Scooter?: No PT Plan Problem List Problem List: Activity Tolerance, Functional Strength, Safety, Balance, Gait, Transfer, Bed Mobility, ROM Treatment/Plan Treatment Plan: Continue Plan of Care Treatment Plan: Bed Mobility, Concurrent Therapy, Education, Functional Activity Abdiel, Functional Strength, Group Therapy, Gait, Safety, Therapeutic Exercise, Transfers Treatment Duration: Aug 05, 2019 Frequency: At least 5 of 7 days/Wk (IRF) Estimated Hrs Per Day: 1.5 hours per day Patient and/or Family Agrees t: Yes Safety Risks/Education Patient Education: Gait Training, Transfer Techniques Teaching Recipient: Patient Teaching Methods: Demonstration, Discussion Response to Teaching: Reinforcement Needed Time/GCodes Time In: 1325 Time Out: 1355 Total Billed Treatment Time: 30 Total Billed Treatment 1 visit EX 15 FA 15 NICO CHAVEZ PT Jul 13, 2019 15:26
[2019-07-13 17:14] VITALS: BP 135/65
[2019-07-13] MEDS: RIVAROXABAN 20 MG TABLET (XARELTO) PO SCH (17:21)
[2019-07-13] MEDS: MELATONIN 3 MG TABLET PO PRN (23:14)
[2019-07-14 06:12] VITALS: BP 150/63
[2019-07-14] MEDS: LEVOTHYROXINE 25 MCG (LEVOTHROID) TAB PO SCH (06:26)
[2019-07-14] MEDS: SUCRALFATE 1 GM (CARAFATE) TAB PO SCH ×4 (06:29→20:40)
[2019-07-14 08:00] VITALS: BP 115/72
--- NOTE | 2019-07-14 08:00 | NUR ---
DENIES PAIN. STATES THIS IS THE 2ND DAY WITHOUT NAUSEA. CONTINUED SOB WITH EXERTION. O2 ON AT 2L. DENIES DIFFICULTY IN VOIDING SINCE MONSALVE CATHETER WAS DC'D.
--- NOTE | 2019-07-14 08:54 | Physical Therapy Daily Note ---
PT Daily Note-Current Subjective Patient finishing up in restroom pre tx, agrees to PT, has no complaints of pain. Appearance Patient in recliner post tx with nurse call, phone, tray, all needs met. Mental Status Patient Orientation: Normal For Age Attachments: Oxygen Transfers SCALE: Activities may be completed with or without assistive devices. 5-Zovmokvmxv-vqxsail completes the activity by him/herself with no assistance from a helper. 5-Set-up or Clean-up Assistance-helper sets up or cleans up; patient completes activity. [place] assists only prior to or following the activity. 4-Supervision or Touching Assistance-helper provides verbal cues and/or touching/steadying and/or contact guard assistance as patient completes activity. Assistance may be provided throughout the activity or intermittently. 3-Partial/Moderate Assistance-helper does LESS THAN HALF the effort. [place] lifts, holds or supports trunk or limbs, but provides less than half the effort. 2-Substantial/Maximal Assistance-helper does MORE THAN HALF the effort. [place] lifts or holds trunk or limbs and provides more than half the effort. 5-Ukgxvfcsu-ltgcyc does ALL the effort. Patient does none of the effort to complete the activity. Or, the assistance of 2 or more helpers is required for the patient to complete the activity. If activity was not attempted, code reason: 7-Patient Refused. 9-Not Applicable-not attempted and the patient did not perform the activity before the current illness, exacerbation or injury. 10-Not Attempted due to Environmental Limitations-(lack of equipment, weather restraints, etc.). 88-Not Attempted due to Medical Conditions or Safety Concerns. Sit to Stand (QC): 6 Chair/Esh-ga-Qmhqc Xfer(QC): 6 Gait Training Distance: 120'x2 Walk 10 feet (QC): 4 Walk 50 ft with 2 Turns(QC): 4 Gait Persons Needed: 1 Gait Assistive Device: FWW SBA, slow but steady, SOB after 120' but recovers quickly sitting down and resting. Exercises Seated Therapy Exercises: Hip abd/add (with RTB and ball) Standing: Hip Abduction, Heel/toe raises, Mini squats, Step-ups Standing Reps: 10 LAQ alternating for 5 min NuStep Minutes: 15 NuStep Workload: 4 Treatments transfers, ambulation, functional strengthening Assessment Current Status: Fair Progress improving strength but patient gets SOB easily with activity PT Short Term Goals Short Term Goals Time Frame: Jul 11, 2019 PT Auto Radio Mechanic Goals Auto Radio Mechanic Goals PT Custodial Goals Time Frame: Aug 05, 2019 Roll Left & Right (QC): 6 Sit to Lying (QC): 6 Lying-Sitting on Side/Bed(QC): 6 Sit to Stand (QC): 6 Chair/Aej-hk-Frniq Xfer(QC): 6 Toilet Transfer (QC): 6 Car Transfer (QC): 6 Does the Patient Walk: Yes Walk 10 feet (QC): 6 Walk 50ft with 2 Turns (QC): 6 Walk 150 ft (QC): 6 Walking 10ft on Uneven Surface: 6 1 Step (curb) (QC): 6 Does the Pt use WC or Scooter?: No PT Plan Problem List Problem List: Activity Tolerance, Functional Strength, Safety, Balance, Gait, Transfer, Bed Mobility, ROM Treatment/Plan Treatment Plan: Continue Plan of Care Treatment Plan: Bed Mobility, Concurrent Therapy, Education, Functional Activity Abdiel, Functional Strength, Group Therapy, Gait, Safety, Therapeutic Exercise, Transfers Treatment Duration: Aug 05, 2019 Frequency: At least 5 of 7 days/Wk (IRF) Estimated Hrs Per Day: 1.5 hours per day Patient and/or Family Agrees t: Yes Safety Risks/Education Patient Education: Gait Training, Transfer Techniques, Correct Positioning, Safety Issues Teaching Recipient: Patient Teaching Methods: Demonstration, Discussion Response to Teaching: Reinforcement Needed Time/GCodes Time In: 0800 Time Out: 0900 Total Billed Treatment Time: 60 Total Billed Treatment 1 visit GT 20' FA 10' EX 30' CONOR PEARSON PT Jul 14, 2019 08:54
[2019-07-14] MEDS: KCL 20 MEQ TAB (K-DUR) PO SCH (09:01)
[2019-07-14] MEDS: ASPIRIN E.C. 81 MG (ECOTRIN) TAB PO SCH (09:02)
[2019-07-14] MEDS: BENZONATATE 100 MG (TESSALON) CAPSULE PO SCH ×3 (09:02→20:40)
[2019-07-14] MEDS: MAGNESIUM OXIDE (MAG-OX)400 MG TAB PO SCH (09:02)
[2019-07-14] MEDS: CLOPIDOGREL 75 MG (PLAVIX) TABLET PO SCH (09:02)
[2019-07-14] MEDS: METOCLOPRAMIDE 5 MG (REGLAN) TAB PO SCH ×2 (09:02→20:40)
[2019-07-14] MEDS: PANTOPRAZOLE 40 MG (PROTONIX) TAB PO SCH (09:02)
[2019-07-14] MEDS: FUROSEMIDE 40 MG (LASIX) TAB PO SCH (09:02)
[2019-07-14] MEDS: DOCUSATE SODIUM 100 MG (COLACE) CAP PO SCH ×2 (09:02→20:41)
[2019-07-14] MEDS: SENNOSIDES 8.6 MG (SENOKOT) TAB PO PRN (09:06)
[2019-07-14] MEDS: polyethylene glycoL POWDER 17 GM (MIRALAX) PACK PO SCH ×2 (09:08→20:41)
--- NOTE | 2019-07-14 09:08 | PM&R Progress Note ---
Subjective HPI/CC On Admission Date Seen by Provider: Jul 14, 2019 Time Seen by Provider: 09:15 Subjective/Events-last exam Pt dramatically improved Remains on O2 Bowels not moving so will initiate suppository and enema if needed No pain is reported Such a dramatic improvement overall in her status Denies any significant other new issues Checked meds and labs Reviewed therapy notes Conferred with university teacher of Systems Pulmonary: Dyspnea Gastrointestinal: Constipation Objective Exam Vital Signs Vital Signs Date Time Temp Pulse Resp B/P (MAP) Pulse Ox O2 Delivery O2 Flow Rate FiO2 07/14/19 10:12 97 Nasal Cannula 2.00 07/14/19 06:12 36.8 64 18 150/63 (92) Capillary Refill : Less Than 3 Seconds General Appearance: WD/WN, Anxious, Chronically ill, Mild Distress, Obese HEENT: PERRL/EOMI, Normal ENT Inspection, Pharynx Normal Neck: Full Range of Motion, Normal Inspection, Non Tender, Supple, Carotid Bruit Respiratory: Chest Non Tender, Lungs Clear, Normal Breath Sounds, No Accessory Muscle Use, No Respiratory Distress, Decreased Breath Sounds Cardiovascular: Regular Rate, Rhythm, No Edema, No Gallop, No JVD, No Murmur, Normal Peripheral Pulses Gastrointestinal: Normal Bowel Sounds, No Organomegaly, No Pulsatile Mass, Non Tender, Soft Back: Normal Inspection, No CVA Tenderness, No Vertebral Tenderness Extremity: Normal Capillary Refill, Normal Inspection, Normal Range of Motion, Non Tender, No Calf Tenderness, No Pedal Edema Neurologic/Psychiatric: Alert, Oriented x3, No Motor/Sensory Deficits, Normal Mood/Affect, lumber chain offbearer II-XII Norm as Tested, Motor Weakness (generalized weakness all extremities) Skin: Normal Color, Warm/Dry Lymphatic: No Adenopathy Results/Procedures Lab Patient resulted labs reviewed. FIM Transfers Therapy Code Descriptions/Definitions Functional [place] Measure: 0=Not Assessed/NA 4=Minimal Assistance 1=Total Assistance 5=Supervision or Setup 2=Maximal Assistance 6=Modified [place] 3=Moderate Assistance 7=Complete IndependenceSCALE: Activities may be completed with or without assistive devices. 0-Pupssuagol-oifxpkn completes the activity by him/herself with no assistance from a helper. 5-Set-up or Clean-up Assistance-helper sets up or cleans up; patient completes activity. [place] assists only prior to or following the activity. 4-Supervision or Touching Assistance-helper provides verbal cues and/or touching/steadying and/or contact guard assistance as patient completes activity. Assistance may be provided throughout the activity or intermittently. 3-Partial/Moderate Assistance-helper does LESS THAN HALF the effort. [place] lifts, holds or supports trunk or limbs, but provides less than half the effort. 2-Substantial/Maximal Assistance-helper does MORE THAN HALF the effort. [place] lifts or holds trunk or limbs and provides more than half the effort. 2-Stfjpmfmo-pjdqss does ALL the effort. Patient does none of the effort to complete the activity. Or, the assistance of 2 or more helpers is required for the patient to complete the activity. If activity was not attempted, code reason: 7-Patient Refused. 9-Not Applicable-not attempted and the patient did not perform the activity before the current illness, exacerbation or injury. 10-Not Attempted due to Environmental Limitations-(lack of equipment, weather restraints, etc.). 88-Not Attempted due to Medical Conditions or Safety Concerns. Roll Left to Right (QC): 6 Sit to Lying (QC): 6 Sit to Stand (QC): 6 Chair/Mkm-mh-Xhgpx Xfer(QC): 6 Car Transfer (QC): 4 (Patient attempted putting feet in car first when instructed to perform like she normally does.) Gait Training Does the Patient Walk?: Yes Distance: 120'x2 Walk 10 feet (QC): 4 Walk 50 ft with 2 Turns(QC): 4 Walk 150 ft (QC): 4 Walking 10ft/uneven surface-QC: 4 Gait Persons Needed: 1 Gait Assistive Device: FWW Wheelchair Training Does the Pt Use a Wheelchair?: No Stair Training #of Steps: 1 1 Step (curb) (QC): 4 Balance Picking up an Object (QC): 4 ADL-Treatment Eating (QC): 6 Oral Hygiene (QC): 4 Shower/Bathe Self (QC): 4 Upper Body Dressing (QC): 5 Lower Body Dressing (QC): 5 On/Off Footwear (QC): 3 Toileting Hygiene (QC): 6 Toilet Transfer (QC): 6 Assessment/Plan Assessment and Plan Assess & Plan/Chief Complaint Assessment: Cardiac debility s/p NSTEMI Severe debilitating nausea and vomiting now resolved since DC Amiodarone and Lipitor Severe deconditioning CAD w/recent stent placement AF OAC CRI Hyponatremia Delirium Plan: IVF HL Fluid restriction Monitor closely Esophagram reviewed Dr Reyez had minimized meds to help with nausea (1) Debility Status: Acute (2) NSTEMI (non-ST elevated myocardial infarction) Status: Acute (3) Angina at rest Status: Acute (4) Atrial fibrillation Status: Chronic (5) CAD (coronary artery disease) Status: Chronic (6) Hypothyroidism Status: Chronic (7) HTN (hypertension) Status: Chronic (8) HLD (hyperlipidemia) Status: Chronic (9) Acute kidney insufficiency Status: Resolved Resolution Date/Time: 07/10/19 @ 16:43 (10) DVT prophylaxis Status: Acute (11) CHF (congestive heart failure) Status: Acute (12) Duodenitis Status: Acute (13) Dyspepsia Status: Acute (14) Elevated brain natriuretic peptide (BNP) level Status: Acute ALICIA GASCA DO Jul 14, 2019 09:08
[2019-07-14] MEDS: SENNA W/DOCUSATE (SENOKOT S) TABLET PO SCH ×2 (09:09→20:55)
--- NOTE | 2019-07-14 09:50 | Cardiology Progress Note ---
Subjective Date Seen by Provider: Jul 14, 2019 Time Seen by Provider: 09:49 Subjective/Events-last exam Patient is feeling better, no new complaint Review of Systems General: No Chills, No Night Sweats; Fatigue; No Malaise, No Appetite, No Other HEENT: No Head Aches, No Visual Changes, No Eye Pain, No Ear Pain, No Dysphasia, No Sinus Congestion, No Post Nasal Drip, No Sore Throat, No Other Pulmonary: Dyspnea; No Cough, No Pleuritic Chest Pain, No Other Cardiovascular: No: Chest Pain, Palpitations, Orthopnea, Paroxysmal Noc. Dyspnea, Edema, Lt Headedness, Other Objective-Cardiology Exam Last Set of Vital Signs Vital Signs 07/14/19 06:12 Temp 36.8 Pulse 64 Resp 18 B/P (MAP) 150/63 (92) Pulse Ox 96 O2 Delivery Nasal Cannula O2 Flow Rate 2.00 Capillary Refill : Less Than 3 Seconds I&O Intake and Output 07/14/19 00:00 Intake Total 1060 ml Output Total 1450 ml Balance -390 ml Intake Oral 1060 ml Output Urine Total 1450 ml # Voids 1 General: Alert, Oriented X3, Cooperative HEENT: Atraumatic, PERRLA Neck: Supple, No JVD, No Thyromegaly Lungs: Clear to Auscultation, Normal Air Movement Heart: Regular Rate, Normal S1, Normal S2 Abdomen: Soft, No Tenderness Extremities: No Clubbing, Other (trace edema) Skin: No Rashes, No Significant Lesion Neuro: Normal Speech, Cranial Nerves 3-12 NL Psych/Mental Status: Mental Status NL, Mood NL A/P-Cardiology Admission Diagnosis Chest pain PAF CAD HTN Assessment/Plan Chest pain, mild elevation in troponin, diffuse abdominal pain, non-ST elevation myocardial infarction due to small vessel disease. Patient reports improvement of chest pain. Medical therapy is recommended. Abdominal pain, nausea and vomiting, diffuse discomfort, better after discontinuation of amiodarone and Lipitor, patient had episode of nausea after amiodarone given, discontinued amiodarone and Lipitor at this time and consider this medication as an allergy to the patient. Anxiety, depression, feeling better today. Continue on Zoloft and monitor Elevated BNP, echocardiogram showed left ventricular hypertrophy with hyperactive ventricle, gradient across the left ventricular outflow tract probably due to hypovolemia, chronic left ventricular diastolic dysfunction, hypertensive heart disease. Coronary artery disease, history of multiple interventions in the past, had a total of 3 stents. Underwent cardiac catheterization on November 15, 2018 revealing moderate stenosis at the ostium of the right coronary artery, heavily calcified. 2 stents in the mid right coronary artery are patent with small vessel disease distally. Calcified left main coronary artery is moderate stenosis, nonobstructive disease. Patent stents in the mid circumflex artery with no obstructive disease, mild disease in LAD. Underwent cardiac catheterization on June 29, 2019 with balloon angioplasty to the mid right coronary artery and stenting to the ostium of the right coronary artery using Maryann 3 x 15 mm stent expanded to 3.25 mm with excellent results, still have moderate stenosis at the mid left main, mid LAD and mid circumflex artery with small vessel disease. Persistent atrial fibrillation, maintained on Xarelto, amiodarone discontinued, continue to monitor High risk of bleed, patient is maintained on aspirin, Plavix and Xarelto, I will consider stopping Xarelto if needed Peripheral edema, better at this time. Upper respiratory infection, recently diagnosed and treated with steroids as outpatient. Continue to monitor. Hypertension, continue on home medication Hyperlipidemia, continue holding Lipitor. Monitor tolerance and response Carotid artery stenosis, mild bilateral nonobstructive disease per carotid duplex done December 2018 Prediabetes Clinical Quality Measures DVT/VTE Risk/Contraindication: Risk Factor Score Per Nursin RFS Level Per Nursing on Admit: 4+=Very High GEOFF THOMSON MD Jul 14, 2019 09:50
[2019-07-14] MEDS: RT-ADVAIR HFA 45/21 MCG PER PUFF IH SCH (10:12)
--- NOTE | 2019-07-14 10:15 | NUR ---
Pastoral care visit.
[2019-07-14] MEDS: BISACODYL 10 MG SUPP (DULCOLAX) PR PRN (10:17)
--- NOTE | 2019-07-14 10:24 | Occupational Ther Daily Note ---
OT Current Status-Daily Note Subjective Pt sitting in chair, agrees to treatment. Denies pain. Mental Status/Objective Attachments: Oxygen ADL-Treatment Pt sit to stand with modified independence. Gait to restroom with FWW. Transfer to walk in shower using grab bar for safety. Pt doffed clothing with SBA. Uses dressing stick to doff socks. Seated bathing completed using hand held shower. Pt able to complete bathing tasks with SBA and increased time. Don button up shirt with set up. Pt able to thread bilateral LE into underwear and pants. Stood with good balance during pant hike. Assist required to don ROMY hose. Pt then able to don socks with verbal cues using sock aid. Pt stood at sink to complete oral care and comb hair with modified independence. Pt has decreased activity tolerance, but recovers quickly with rest breaks. Increased time for ADL tasks. Discussed energy conservation during functional tasks. Pt states understanding. Pt transferred to EOB, sitting with needs met after session. Therapy Code Descriptions/Definitions Functional [place] Measure: 0=Not Assessed/NA 4=Minimal Assistance 1=Total Assistance 5=Supervision or Setup 2=Maximal Assistance 6=Modified [place] 3=Moderate Assistance 7=Complete IndependenceSCALE: Activities may be completed with or without assistive devices. 7-Ydtmvrrwgh-zuodlmf completes the activity by him/herself with no assistance from a helper. 5-Set-up or Clean-up Assistance-helper sets up or cleans up; patient completes activity. [place] assists only prior to or following the activity. 4-Supervision or Touching Assistance-helper provides verbal cues and/or touching/steadying and/or contact guard assistance as patient completes activity. Assistance may be provided throughout the activity or intermittently. 3-Partial/Moderate Assistance-helper does LESS THAN HALF the effort. [place] lifts, holds or supports trunk or limbs, but provides less than half the effort. 2-Substantial/Maximal Assistance-helper does MORE THAN HALF the effort. [place] lifts or holds trunk or limbs and provides more than half the effort. 5-Swmrugoif-vgnfxe does ALL the effort. Patient does none of the effort to complete the activity. Or, the assistance of 2 or more helpers is required for the patient to complete the activity. If activity was not attempted, code reason: 7-Patient Refused. 9-Not Applicable-not attempted and the patient did not perform the activity before the current illness, exacerbation or injury. 10-Not Attempted due to Environmental Limitations-(lack of equipment, weather restraints, etc.). 88-Not Attempted due to Medical Conditions or Safety Concerns. Oral Hygiene (QC): 6 Shower/Bathe Self (QC): 4 Upper Body Dressing (QC): 5 Lower Body Dressing (QC): 5 On/Off Footwear: 3 (assist for ROMY hose) Education OT Patient Education: Modified ADL techniques Teaching Recipient: Patient Teaching Methods: Discussion Response to Teaching: Verbalize Understanding OT [place] Maker Goals Senior Care Goals Time Frame: Aug 01, 2019 Eating (QC): 6 Oral Hygiene (QC): 6 Toileting Hygiene (QC): 6 Shower/Bathe Self (QC): 5 Upper Body Dressing (QC): 6 Lower Body Dressing (QC): 6 On/Off Footwear (QC): 6 Additional Goals: 1-Demonstrate ADL Tasks, 2-Verbalize Understanding, 3- ImproveStrength/Abdiel 1=Demonstrate adherence to instructed precautions during ADL tasks. 2=Patient will verbalize/demonstrate understanding of assistive devices/modifications for ADL. 3=Patient will improve strength/tolerance for activity to enable patient to perform ADL's. OT Education/Plan Discharge Recommendations Plan/Recommendations: Continue POC Treatment Plan/Plan of Care Patient would benefit from OT for education, treatment and training to promote independence in ADL's, mobility, safety and/or upper extremity function for AD L's. Plan of Care: ADL Retraining, Functional Mobility, Group Exercise/Act as Ind, UE Funct Exercise/Act Treatment Duration: Aug 01, 2019 Frequency: At least 5 of 7 days/Wk (IRF) Estimated Hrs Per Day: 1.5 hours per day Agreement: Yes Rehab Potential: Fair Time/GCodes Start Time: 09:00 Stop Time: 10:10 Total Time Billed (hr/min): 70 Billed Treatment Time 1 visit, ADLx5(70minutes) NANDO LOAIZA OT Jul 14, 2019 10:24
[2019-07-14] MEDS ORDERED: CATHETER FLUSH 10 ML SYR IV PRN (11:30)
--- NOTE | 2019-07-14 12:00 | NUR ---
SALINE LOCK OCCLUDED. ONLY IV MED IS ZOFRAN PRN AND PATIENT REQUESTS FOR IT NOT TO BE RESTARTED.
[2019-07-14] MEDS: CATHETER FLUSH 10 ML SYR IV SCH ×2 (12:58→22:00)
--- NOTE | 2019-07-14 14:46 | Therapy Group Daily Note ---
Therapy Daily Group Note Patient Education Topic Other List Below (memory/ARU orientation) Exercises LE Seated Exercise, UE Exercise Session Ratio (pt:therapist): 4:1 Goal of Session: Education on ARU Expectations, Memory Strategies, UE/LE Strengthing Goal Met for this Session: Yes Pt Benefit of Group: Contributions to Others, Increased Functional Safety, Increased Functional Strength, Improved Cognition, Recognition of Peers, Socialization Other/Notes Pt ambulated to therapy gym for OT/PT group. Group consisted of introductions (name, place living, what would you tell the world in 2 min), socialization, pt lead UE/LE seated exercises, memory strategies/activity and orientation to ARU. Pt introduced self appropriately though required verbal cues to answer question appropriately. Pt then was able to follow directions to complete UE/LE seated exercises and required assistance to remember exercise for group. Pt had difficulty with memory topic and required verbal cues to think of appropriate strategy. Pt able to complete memory activity well. Pt was able to meet goals of session with verbal cues. After group, pt lying in bed with osiel light/phone in reach. All needs met in room. Start Time: 13:00 Stop Time: 14:15 Total Billed Treatment Time: 75 Total Billed Treatment 1-NIGHAT CAO Jul 14, 2019 14:46
[2019-07-14 17:22] VITALS: BP 144/90
--- NOTE | 2019-07-14 17:30 | NUR ---
TWO SMALL HARD STOOLS TODAY AFTER LAXATIVES GIVEN ALONG WITH PRUNE JUICE AND COFFEE. STATES EACH TIME WHEN WIPED, THERE WAS BLOOD ON TOILET PAPER FROM HER PUSHING SO HARD. REFUSES ANY MORE LAXATIVES AT THIS TIME.
[2019-07-14] MEDS: RIVAROXABAN 20 MG TABLET (XARELTO) PO SCH (17:43)
--- NOTE | 2019-07-14 19:07 | NUR ---
bedside report received from AYE KAY, assume care of pt
--- NOTE | 2019-07-14 20:00 | NUR ---
pt had small hard brown stool
[2019-07-14] MEDS: MELATONIN 3 MG TABLET PO PRN (20:40)
--- NOTE | 2019-07-14 20:41 | NUR ---
pt took Colace & miralax, refused Senokot
--- NOTE | 2019-07-14 22:05 | NUR ---
back to bed with 1 person assist & walker
[2019-07-15] MEDS: RT-ADVAIR HFA 45/21 MCG PER PUFF IH SCH ×2 (00:02→08:29)
[2019-07-15] MEDS: LEVOTHYROXINE 25 MCG (LEVOTHROID) TAB PO SCH (05:09)
[2019-07-15 05:12] VITALS: BP 116/71
[2019-07-15] MEDS: CATHETER FLUSH 10 ML SYR IV SCH (06:00)
[2019-07-15] MEDS: SUCRALFATE 1 GM (CARAFATE) TAB PO SCH ×4 (06:10→20:50)
[2019-07-15 08:00] VITALS: BP 135/63
--- NOTE | 2019-07-15 08:00 | NUR ---
DENIES NAUSEA AND PAIN. NO FURTHER CONSTIPATION. LOWER LEG EDEMA CONTINUES. DOES NOT LIKE TO WEAR ROMY HOSE. HAS HAD A 2.5 LB. WEIGHT GAIN SINCE WEDNESDAY.
[2019-07-15] MEDS: KCL 20 MEQ TAB (K-DUR) PO SCH (09:01)
[2019-07-15] MEDS: CLOPIDOGREL 75 MG (PLAVIX) TABLET PO SCH (09:01)
[2019-07-15] MEDS: FUROSEMIDE 40 MG (LASIX) TAB PO SCH (09:01)
[2019-07-15] MEDS: ASPIRIN E.C. 81 MG (ECOTRIN) TAB PO SCH (09:01)
[2019-07-15] MEDS: SENNOSIDES 8.6 MG (SENOKOT) TAB PO PRN (09:01)
[2019-07-15] MEDS: MAGNESIUM OXIDE (MAG-OX)400 MG TAB PO SCH (09:01)
[2019-07-15] MEDS: PANTOPRAZOLE 40 MG (PROTONIX) TAB PO SCH (09:01)
[2019-07-15] MEDS: METOCLOPRAMIDE 5 MG (REGLAN) TAB PO SCH ×2 (09:01→20:50)
[2019-07-15] MEDS: DOCUSATE SODIUM 100 MG (COLACE) CAP PO SCH ×2 (09:01→20:50)
[2019-07-15] MEDS: BENZONATATE 100 MG (TESSALON) CAPSULE PO SCH ×3 (09:01→20:50)
[2019-07-15] MEDS: SENNA W/DOCUSATE (SENOKOT S) TABLET PO SCH ×2 (09:07→20:51)
[2019-07-15] MEDS: polyethylene glycoL POWDER 17 GM (MIRALAX) PACK PO SCH ×2 (09:07→20:51)
--- NOTE | 2019-07-15 09:51 | Physical Therapy Daily Note ---
PT Daily Note-Current Subjective Pt sitting in recliner taking morning medications upon arrival. Nurse is present. Pt agrees to PT. Pain Location: No Pain Reported Mental Status Patient Orientation: Person, Place, Situation Transfers SCALE: Activities may be completed with or without assistive devices. 9-Fpdzijwhda-cpnfemp completes the activity by him/herself with no assistance from a helper. 5-Set-up or Clean-up Assistance-helper sets up or cleans up; patient completes activity. [place] assists only prior to or following the activity. 4-Supervision or Touching Assistance-helper provides verbal cues and/or touching/steadying and/or contact guard assistance as patient completes activity. Assistance may be provided throughout the activity or intermittently. 3-Partial/Moderate Assistance-helper does LESS THAN HALF the effort. [place] lifts, holds or supports trunk or limbs, but provides less than half the effort. 2-Substantial/Maximal Assistance-helper does MORE THAN HALF the effort. [place] lifts or holds trunk or limbs and provides more than half the effort. 0-Zryrrtstr-tuxgnw does ALL the effort. Patient does none of the effort to complete the activity. Or, the assistance of 2 or more helpers is required for the patient to complete the activity. If activity was not attempted, code reason: 7-Patient Refused. 9-Not Applicable-not attempted and the patient did not perform the activity before the current illness, exacerbation or injury. 10-Not Attempted due to Environmental Limitations-(lack of equipment, weather restraints, etc.). 88-Not Attempted due to Medical Conditions or Safety Concerns. Sit to Stand (QC): 5 Weight Bearing Right Lower Extremity: Right Full Weight Bearing Left Lower Extremity: Left Full Weight Bearing Gait Training Does the Patient Walk?: Yes Distance: 150' Walk 10 feet (QC): 5 Walk 50 ft with 2 Turns(QC): 5 Walk 150 ft (QC): 5 Gait Persons Needed: 1 Gait Assistive Device: FWW Wheelchair Training Does the Pt Use a Wheelchair?: No Exercises Seated Therapy Exercises: Ankle pumps, Long arc quads, Hip flexion, Kicking activity, Hip abd/add Seated Reps: 15 Standing: Hip Abduction, Hamstring curls, Heel/toe raises, Marching, Mini squats, Step-ups, Weight shifts Standing Reps: 15 Treatments Pt transfers from recliner to standing and ambulates in hallway. Pt completes Standing Ex at //bars as well as Seated EX in chair. Pt resting at end of Rx in chair as OT arrives for Rx. Pt has all needs met. Assessment Current Status: Good Progress Pt tolerated Rx well, taking only a couple of RB as needed. PT Short Term Goals Short Term Goals Time Frame: Jul 11, 2019 PT Roll Cutter Goals Alf Goals PT Alf Goals Time Frame: Aug 05, 2019 Roll Left & Right (QC): 6 Sit to Lying (QC): 6 Lying-Sitting on Side/Bed(QC): 6 Sit to Stand (QC): 6 Chair/Yei-zt-Smyfk Xfer(QC): 6 Toilet Transfer (QC): 6 Car Transfer (QC): 6 Does the Patient Walk: Yes Walk 10 feet (QC): 6 Walk 50ft with 2 Turns (QC): 6 Walk 150 ft (QC): 6 Walking 10ft on Uneven Surface: 6 1 Step (curb) (QC): 6 Does the Pt use WC or Scooter?: No PT Plan Problem List Problem List: Activity Tolerance, Functional Strength Treatment/Plan Treatment Plan: Continue Plan of Care Treatment Plan: Bed Mobility, Concurrent Therapy, Education, Functional Activity Abdiel, Functional Strength, Group Therapy, Gait, Safety, Therapeutic Exercise, Transfers Treatment Duration: Aug 05, 2019 Frequency: At least 5 of 7 days/Wk (IRF) Estimated Hrs Per Day: 1.5 hours per day Patient and/or Family Agrees t: Yes Safety Risks/Education Patient Education: Gait Training, Transfer Techniques, Correct Positioning, Safety Issues Teaching Recipient: Patient Teaching Methods: Discussion Response to Teaching: Verbalize Understanding Time/GCodes Time In: 900 Time Out: 930 Total Billed Treatment Time: 30 Total Billed Treatment 1, GT (10m) & EX (20m) NIKO HOFFMAN [employer]IO SALES ACCOUNT EXECUTIVE Jul 15, 2019 09:50
--- NOTE | 2019-07-15 10:23 | Occupational Ther Daily Note ---
OT Current Status-Daily Note Subjective Pt seen in therapy gym, agreeable to OT. No pain mentioned. Appearance Alert, cooperative ADL-Treatment Pt walked back to room with SBA, FWW, with OT managing O2 tank. Pt educ on holding O2 tubing in hand while walking, for safety. Pt completed toilet transfer with SBA, managing clothing and hygiene. Stood at sink with FWW, SBA to wash hands. Pt returned to recliner and was left up in chair, O2 in place, legs elevated, all needs met. Therapy Code Descriptions/Definitions Functional [place] Measure: 0=Not Assessed/NA 4=Minimal Assistance 1=Total Assistance 5=Supervision or Setup 2=Maximal Assistance 6=Modified [place] 3=Moderate Assistance 7=Complete IndependenceSCALE: Activities may be completed with or without assistive devices. 4-Fczicnxiuw-ahzvnji completes the activity by him/herself with no assistance from a helper. 5-Set-up or Clean-up Assistance-helper sets up or cleans up; patient completes activity. [place] assists only prior to or following the activity. 4-Supervision or Touching Assistance-helper provides verbal cues and/or touching/steadying and/or contact guard assistance as patient completes activity. Assistance may be provided throughout the activity or intermittently. 3-Partial/Moderate Assistance-helper does LESS THAN HALF the effort. [place] lifts, holds or supports trunk or limbs, but provides less than half the effort. 2-Substantial/Maximal Assistance-helper does MORE THAN HALF the effort. [place] lifts or holds trunk or limbs and provides more than half the effort. 4-Svemcmrky-eelunw does ALL the effort. Patient does none of the effort to complete the activity. Or, the assistance of 2 or more helpers is required for the patient to complete the activity. If activity was not attempted, code reason: 7-Patient Refused. 9-Not Applicable-not attempted and the patient did not perform the activity before the current illness, exacerbation or injury. 10-Not Attempted due to Environmental Limitations-(lack of equipment, weather restraints, etc.). 88-Not Attempted due to Medical Conditions or Safety Concerns. Other Treatment Pt completed 10 minutes bilat UE exercise on arm bike, set at 15W resistance, taking recovery breaks about every 2 1/2 minutes. Pt attended to respiratory rate and heart rate when ready to resume activity. O2 at 2L/min nc throughout. While pt was recovering, pt education on energy conservation, with focus on pacing herself. Pt was able to apply techniques to exercise. Education OT Patient Education: Energy conservation, Progress toward Goal/Update tx plan, Purpose of tx/functional activities, Safety issues Teaching Recipient: Patient Teaching Methods: Discussion Response to Teaching: Verbalize Understanding, Return Demonstration OT Departmental Buyer Goals Senior Care Goals Time Frame: Aug 01, 2019 Eating (QC): 6 Oral Hygiene (QC): 6 Toileting Hygiene (QC): 6 Shower/Bathe Self (QC): 5 Upper Body Dressing (QC): 6 Lower Body Dressing (QC): 6 On/Off Footwear (QC): 6 Additional Goals: 1-Demonstrate ADL Tasks, 2-Verbalize Understanding, 3- ImproveStrength/Abdiel 1=Demonstrate adherence to instructed precautions during ADL tasks. 2=Patient will verbalize/demonstrate understanding of assistive devices/modifications for ADL. 3=Patient will improve strength/tolerance for activity to enable patient to perform ADL's. OT Education/Plan Discharge Recommendations Plan/Recommendations: Continue POC Treatment Plan/Plan of Care Patient would benefit from OT for education, treatment and training to promote independence in ADL's, mobility, safety and/or upper extremity function for ADL's. Plan of Care: ADL Retraining, Functional Mobility, Group Exercise/Act as Ind, UE Funct Exercise/Act Treatment Duration: Aug 01, 2019 Frequency: At least 5 of 7 days/Wk (IRF) Estimated Hrs Per Day: 1.5 hours per day Agreement: Yes Rehab Potential: Fair Time/GCodes Start Time: 09:30 Stop Time: 10:00 Total Time Billed (hr/min): 30 Billed Treatment Time visit, 20 minutes exercise, 10 minutes ADL TIM VEGA OT Jul 15, 2019 10:23
--- NOTE | 2019-07-15 12:50 | PM&R Progress Note ---
Subjective HPI/CC On Admission Date Seen by Provider: Jul 15, 2019 Time Seen by Provider: 13:00 Subjective/Events-last exam Pt dramatically improved and continues to progress Updated daughter Remains on O2 Bowels now moving after multiple laxatives yesterday No pain is reported Such a dramatic improvement overall in her status Denies any significant other new issues Checked meds and labs Reviewed therapy notes Conferred with manager packaging of Systems General: Fatigue Pulmonary: Dyspnea Objective Exam Vital Signs Vital Signs Date Time Temp Pulse Resp B/P (MAP) Pulse Ox O2 Delivery O2 Flow Rate FiO2 07/15/19 09:00 Nasal Cannula 2.00 07/15/19 08:29 97 07/15/19 05:12 36.7 63 20 116/71 (86) Capillary Refill : Less Than 3 Seconds General Appearance: WD/WN, Anxious, Chronically ill, Mild Distress, Obese HEENT: PERRL/EOMI, Normal ENT Inspection, Pharynx Normal Neck: Full Range of Motion, Normal Inspection, Non Tender, Supple, Carotid Bruit Respiratory: Chest Non Tender, Lungs Clear, Normal Breath Sounds, No Accessory Muscle Use, No Respiratory Distress, Decreased Breath Sounds Cardiovascular: Regular Rate, Rhythm, No Edema, No Gallop, No JVD, No Murmur, Normal Peripheral Pulses Gastrointestinal: Normal Bowel Sounds, No Organomegaly, No Pulsatile Mass, Non Tender, Soft Back: Normal Inspection, No CVA Tenderness, No Vertebral Tenderness Extremity: Normal Capillary Refill, Normal Inspection, Normal Range of Motion, Non Tender, No Calf Tenderness, No Pedal Edema Neurologic/Psychiatric: Alert, Oriented x3, No Motor/Sensory Deficits, Normal Mood/Affect, casting technician II-XII Norm as Tested, Motor Weakness (generalized weakness all extremities) Skin: Normal Color, Warm/Dry Lymphatic: No Adenopathy Results/Procedures Lab Patient resulted labs reviewed. FIM Transfers Therapy Code Descriptions/Definitions Functional [place] Measure: 0=Not Assessed/NA 4=Minimal Assistance 1=Total Assistance 5=Supervision or Setup 2=Maximal Assistance 6=Modified [place] 3=Moderate Assistance 7=Complete IndependenceSCALE: Activities may be completed with or without assistive devices. 0-Gmagealkdp-kuivquh completes the activity by him/herself with no assistance from a helper. 5-Set-up or Clean-up Assistance-helper sets up or cleans up; patient completes activity. [place] assists only prior to or following the activity. 4-Supervision or Touching Assistance-helper provides verbal cues and/or touching/steadying and/or contact guard assistance as patient completes activity. Assistance may be provided throughout the activity or intermittently. 3-Partial/Moderate Assistance-helper does LESS THAN HALF the effort. [place] lifts, holds or supports trunk or limbs, but provides less than half the effort. 2-Substantial/Maximal Assistance-helper does MORE THAN HALF the effort. [place] lifts or holds trunk or limbs and provides more than half the effort. 4-Oynjsfgzx-kgbuua does ALL the effort. Patient does none of the effort to complete the activity. Or, the assistance of 2 or more helpers is required for the patient to complete the activity. If activity was not attempted, code reason: 7-Patient Refused. 9-Not Applicable-not attempted and the patient did not perform the activity before the current illness, exacerbation or injury. 10-Not Attempted due to Environmental Limitations-(lack of equipment, weather restraints, etc.). 88-Not Attempted due to Medical Conditions or Safety Concerns. Roll Left to Right (QC): 6 Sit to Lying (QC): 6 Sit to Stand (QC): 5 Chair/Xbv-vd-Mcoof Xfer(QC): 6 Car Transfer (QC): 4 (Patient attempted putting feet in car first when instructed to perform like she normally does.) Gait Training Does the Patient Walk?: Yes Distance: 150' Walk 10 feet (QC): 5 Walk 50 ft with 2 Turns(QC): 5 Walk 150 ft (QC): 5 Walking 10ft/uneven surface-QC: 4 Gait Persons Needed: 1 Gait Assistive Device: FWW Wheelchair Training Does the Pt Use a Wheelchair?: No Stair Training #of Steps: 1 1 Step (curb) (QC): 4 Balance Picking up an Object (QC): 4 ADL-Treatment Eating (QC): 6 Oral Hygiene (QC): 6 Shower/Bathe Self (QC): 4 Upper Body Dressing (QC): 5 Lower Body Dressing (QC): 5 On/Off Footwear (QC): 3 (assist for ROMY hose) Toileting Hygiene (QC): 6 Toilet Transfer (QC): 6 Assessment/Plan Assessment and Plan Assess & Plan/Chief Complaint Assessment: Cardiac debility s/p NSTEMI Severe debilitating nausea and vomiting now resolved since DC Amiodarone and Lipitor Severe deconditioning CAD w/recent stent placement AF OAC CRI Hyponatremia Delirium Plan: IVF HL Fluid restriction to continue Monitor closely Esophagram reviewed Dr Reyez had minimized meds to help with nausea which has resolved her issues (1) Debility Status: Acute (2) NSTEMI (non-ST elevated myocardial infarction) Status: Acute (3) Angina at rest Status: Acute (4) Atrial fibrillation Status: Chronic (5) CAD (coronary artery disease) Status: Chronic (6) Hypothyroidism Status: Chronic (7) HTN (hypertension) Status: Chronic (8) HLD (hyperlipidemia) Status: Chronic (9) Acute kidney insufficiency Status: Resolved Resolution Date/Time: 07/10/19 @ 16:43 (10) DVT prophylaxis Status: Acute (11) CHF (congestive heart failure) Status: Acute (12) Duodenitis Status: Acute (13) Dyspepsia Status: Acute (14) Elevated brain natriuretic peptide (BNP) level Status: Acute ALICIA GASCA DO Jul 15, 2019 12:49
--- NOTE | 2019-07-15 14:00 | NUR ---
SARAH WRAPS APPLIED TO LOWER LEGS. VOIDING WELL TODAY.
[2019-07-15 17:58] VITALS: BP 153/69
[2019-07-15] MEDS: RIVAROXABAN 20 MG TABLET (XARELTO) PO SCH (18:24)
--- NOTE | 2019-07-15 19:05 | NUR ---
bedside report received from AYE KAY, assume care of pt
[2019-07-15] MEDS: MELATONIN 3 MG TABLET PO PRN (20:50)
--- NOTE | 2019-07-15 20:50 | NUR ---
feels like had adequate stools today but took laxatives to prevent constipation
[2019-07-16] MEDS: RT-ADVAIR HFA 45/21 MCG PER PUFF IH SCH ×2 (03:44→08:49)
[2019-07-16] MEDS: LEVOTHYROXINE 25 MCG (LEVOTHROID) TAB PO SCH (05:02)
[2019-07-16 05:36] VITALS: BP 138/65
[2019-07-16] MEDS: SUCRALFATE 1 GM (CARAFATE) TAB PO SCH ×4 (06:15→20:36)
[2019-07-16] MEDS: CLOPIDOGREL 75 MG (PLAVIX) TABLET PO SCH (09:17)
[2019-07-16] MEDS: FUROSEMIDE 40 MG (LASIX) TAB PO SCH (09:18)
[2019-07-16] MEDS: BENZONATATE 100 MG (TESSALON) CAPSULE PO SCH ×3 (09:18→20:37)
[2019-07-16] MEDS: ASPIRIN E.C. 81 MG (ECOTRIN) TAB PO SCH (09:18)
[2019-07-16] MEDS: METOCLOPRAMIDE 5 MG (REGLAN) TAB PO SCH ×2 (09:18→20:37)
[2019-07-16] MEDS: DOCUSATE SODIUM 100 MG (COLACE) CAP PO SCH ×2 (09:18→20:37)
[2019-07-16] MEDS: PANTOPRAZOLE 40 MG (PROTONIX) TAB PO SCH (09:18)
[2019-07-16] MEDS: KCL 20 MEQ TAB (K-DUR) PO SCH (09:22)
[2019-07-16] MEDS: MAGNESIUM OXIDE (MAG-OX)400 MG TAB PO SCH (09:22)
[2019-07-16] MEDS: SENNA W/DOCUSATE (SENOKOT S) TABLET PO SCH ×2 (09:25→20:41)
[2019-07-16] MEDS: polyethylene glycoL POWDER 17 GM (MIRALAX) PACK PO SCH ×2 (09:25→20:40)
--- NOTE | 2019-07-16 11:00 | NUR ---
VOIDING WELL POST LASIX. VOIDS HOURLY. SARAH WRAPS TO LOWER LEGS. NO OTHER COMPLAINTS.
--- NOTE | 2019-07-16 13:40 | PM&R Progress Note ---
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 childhood education of Systems General: Fatigue Objective Exam Vital Signs Vital Signs Date Time Temp Pulse Resp B/P (MAP) Pulse Ox O2 Delivery O2 Flow Rate FiO2 07/16/19 17:49 37.0 75 20 147/75 (99) 99 Nasal Cannula 2.00 Capillary Refill : Less Than 3 Seconds General Appearance: No Apparent Distress, WD/WN, Chronically ill, Obese HEENT: PERRL/EOMI, Normal ENT Inspection, Pharynx Normal Neck: Full Range of Motion, Normal Inspection, Non Tender, Supple, Carotid Bruit Respiratory: Chest Non Tender, Lungs Clear, Normal Breath Sounds, No Accessory Muscle Use, No Respiratory Distress Cardiovascular: Regular Rate, Rhythm, No Edema, No Gallop, No JVD, No Murmur, Normal Peripheral Pulses Gastrointestinal: Normal Bowel Sounds, No Organomegaly, No Pulsatile Mass, Non Tender, Soft Back: Normal Inspection, No CVA Tenderness, No Vertebral Tenderness Extremity: Normal Capillary Refill, Normal Inspection, Normal Range of Motion, Non Tender, No Calf Tenderness, No Pedal Edema Neurologic/Psychiatric: Alert, Oriented x3, No Motor/Sensory Deficits, Normal Mood/Affect, 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 FIM Transfers Therapy Code Descriptions/Definitions Functional [place] Measure: 0=Not Assessed/NA 4=Minimal Assistance 1=Total Assistance 5=Supervision or Setup 2=Maximal Assistance 6=Modified [place] 3=Moderate Assistance 7=Complete IndependenceSCALE: Activities may be completed with or without assistive devices. 4-Mmnbvtmzpv-qawumbe completes the activity by him/herself with no assistance from a helper. 5-Set-up or Clean-up Assistance-helper sets up or cleans up; patient completes activity. [place] assists only prior to or following the activity. 4-Supervision or Touching Assistance-helper provides verbal cues and/or touching/steadying and/or contact guard assistance as patient completes acti vity. Assistance may be provided throughout the activity or intermittently. 3-Partial/Moderate Assistance-helper does LESS THAN HALF the effort. [place] lifts, holds or supports trunk or limbs, but provides less than half the effort. 2-Substantial/Maximal Assistance-helper does MORE THAN HALF the effort. [place] lifts or holds trunk or limbs and provides more than half the effort. 9-Emuqmryjy-byazrc does ALL the effort. Patient does none of the effort to complete the activity. Or, the assistance of 2 or more helpers is required for the patient to complete the activity. If activity was not attempted, code reason: 7-Patient Refused. 9-Not Applicable-not attempted and the patient did not perform the activity before the current illness, exacerbation or injury. 10-Not Attempted due to Environmental Limitations-(lack of equipment, weather restraints, etc.). 88-Not Attempted due to Medical Conditions or Safety Concerns. Roll Left to Right (QC): 6 Sit to Lying (QC): 6 Sit to Stand (QC): 5 Chair/Ukl-uf-Mfbsi Xfer(QC): 6 Car Transfer (QC): 4 (Patient attempted putting feet in car first when instructed to perform like she normally does.) Gait Training Does the Patient Walk?: Yes Distance: 150' Walk 10 feet (QC): 5 Walk 50 ft with 2 Turns(QC): 5 Walk 150 ft (QC): 5 Walking 10ft/uneven surface-QC: 4 Gait Persons Needed: 1 Gait Assistive Device: FWW Wheelchair Training Does the Pt Use a Wheelchair?: No Stair Training #of Steps: 1 1 Step (curb) (QC): 4 Balance Picking up an Object (QC): 4 ADL-Treatment Eating (QC): 6 Oral Hygiene (QC): 6 Shower/Bathe Self (QC): 4 Upper Body Dressing (QC): 5 Lower Body Dressing (QC): 5 On/Off Footwear (QC): 3 (assist for ROMY hose) Toileting Hygiene (QC): 6 Toilet Transfer (QC): 6 Assessment/Plan Assessment and Plan Assess & Plan/Chief Complaint Assessment: Cardiac debility s/p NSTEMI Severe debilitating nausea and vomiting now resolved since DC Amiodarone and Lipitor Severe deconditioning CAD w/recent stent placement AF OAC CRI Hyponatremia Delirium resolved Plan: IVF HL Fluid restriction to continue until labs are checked tomorrow Monitor closely Esophagram reviewed Dr Reyez had minimized meds to help with nausea which has resolved her issues (1) Debility Status: Acute (2) NSTEMI (non-ST elevated myocardial infarction) Status: Acute (3) Angina at rest Status: Acute (4) Atrial fibrillation Status: Chronic (5) CAD (coronary artery disease) Status: Chronic (6) Hypothyroidism Status: Chronic (7) HTN (hypertension) Status: Chronic (8) HLD (hyperlipidemia) Status: Chronic (9) Acute kidney insufficiency Status: Resolved Resolution Date/Time: 07/10/19 @ 16:43 (10) DVT prophylaxis Status: Acute (11) CHF (congestive heart failure) Status: Acute (12) Duodenitis Status: Acute (13) Dyspepsia Status: Acute (14) Elevated brain natriuretic peptide (BNP) level Status: Acute ALICIA GASCA DO Jul 16, 2019 13:40
--- NOTE | 2019-07-16 14:00 | NUR ---
ENJOYED VISIT FROM FAMILY. AMBULATED IN [place] WITH WALKER AND PORTABLE O2 AND NURSE AND TOLERATED WELL.
[2019-07-16] MEDS: RIVAROXABAN 20 MG TABLET (XARELTO) PO SCH (17:29)
[2019-07-16 17:49] VITALS: BP 147/75
--- NOTE | 2019-07-16 19:10 | NUR ---
bedside report received from AYE KAY, assume care of pt
[2019-07-16] MEDS: MELATONIN 3 MG TABLET PO PRN (20:36)
--- NOTE | 2019-07-16 20:36 | NUR ---
took paola & Faustino refused Senokot, remains up in the chair watching TV
--- NOTE | 2019-07-16 22:15 | NUR ---
back to bed, up with 1 person standby assist & walker
[2019-07-17] MEDS: LEVOTHYROXINE 25 MCG (LEVOTHROID) TAB PO SCH (04:59)
[2019-07-17 06:00] VITALS: BP 151/81
[2019-07-17] MEDS: SUCRALFATE 1 GM (CARAFATE) TAB PO SCH ×4 (06:06→20:42)
[2019-07-17 06:10] LABS: BASOPHILS % (AUTO) 1 % (0-10); EOSINOPHILS # (AUTO) 0.3 10^3/uL (0.0-0.3); EOSINOPHILS % (AUTO) 7 % (0-10); HEMATOCRIT 32 % (35-52); HEMOGLOBIN 10.6 G/DL (11.5-16.0); LYMPHOCYTES # (AUTO) 0.7 X 10^3 (1.0-4.0); LYMPHOCYTES % (AUTO) 14 % (12-44); MEAN CORPUSCULAR HEMOGLOBIN 29 PG (25-34); MEAN CORPUSCULAR HGB CONC 33 G/DL (32-36); MEAN CORPUSCULAR VOLUME 89 FL (80-99); MONOCYTES # (AUTO) 0.6 X 10^3 (0.0-1.0); MONOCYTES % (AUTO) 12 % (0-12); NEUTROPHILS # (AUTO) 3.4 X 10^3 (1.8-7.8); NEUTROPHILS % (AUTO) 67 % (42-75); PLATELET COUNT 348 10^3/uL (130-400); RED CELL DISTRIBUTION WIDTH 14.5 % (10.0-14.5); WHITE BLOOD COUNT 5.1 10^3/uL (4.3-11.0)
[2019-07-17 06:32] LABS: BILIRUBIN,TOTAL 0.5 MG/DL (0.1-1.0); CREATININE SERUM 1.26 MG/DL (0.60-1.30); POTASSIUM 3.5 MMOL/L (3.6-5.0); TOTAL PROTEIN 5.8 GM/DL (6.4-8.2)
--- NOTE | 2019-07-17 07:30 | NUR ---
patient restless, feeling nauseated. gets up to RR with help X1, urinates. 1 tab zofran given po for c/o nausea. Recheck at 0900, pt voices feeling a little bit better. will con't to monitor.
--- NOTE | 2019-07-17 08:27 | Cardiology Progress Note ---
Subjective Date Seen by Provider: Jul 17, 2019 Time Seen by Provider: 08:26 Subjective/Events-last exam Patient up in chair, reports unable to sleep last night and not feeling well this morning with generalized malaise. Denies any chest pain. Review of Systems General: No Chills, No Night Sweats; Fatigue; No Malaise, No Appetite, No Other HEENT: No Head Aches, No Visual Changes, No Eye Pain, No Ear Pain, No Dysphasia, No Sinus Congestion, No Post Nasal Drip, No Sore Throat, No Other Pulmonary: Dyspnea; No Cough, No Pleuritic Chest Pain, No Other Cardiovascular: Paroxysmal Noc. Dyspnea; No: Chest Pain, Palpitations, O rthopnea, Edema, Lt Headedness, Other Objective-Cardiology Exam Last Set of Vital Signs Vital Signs 07/17/19 07/17/19 06:00 09:00 Temp 37.0 Pulse 91 Resp 18 B/P (MAP) 151/81 (104) Pulse Ox 97 O2 Delivery Nasal Cannula O2 Flow Rate 2.00 Capillary Refill : Less Than 3 Seconds I&O Intake and Output 07/17/19 00:00 Intake Total 1150 ml Output Total 2350 ml Balance -1200 ml Intake Oral 1150 ml Output Urine Total 2350 ml # Voids 2 # Bowel Movements 2 General: Alert, Oriented X3, Cooperative HEENT: Atraumatic, PERRLA Neck: Supple, No JVD, No Thyromegaly Lungs: Clear to Auscultation, Normal Air Movement Heart: Regular Rate, Normal S1, Normal S2 Abdomen: Soft, No Tenderness Extremities: No Clubbing, Other (trace edema) Skin: No Rashes, No Significant Lesion Neuro: Normal Speech, Cranial Nerves 3-12 NL Psych/Mental Status: Mental Status NL, Mood NL Results Lab Laboratory Tests 07/17/19 05:25 A/P-Cardiology Admission Diagnosis Chest pain PAF CAD HTN Assessment/Plan Chest pain, mild elevation in troponin, diffuse abdominal pain, non-ST elevation myocardial infarction due to small vessel disease. Patient reports improvement of chest pain. Medical therapy is recommended. Abdominal pain, nausea and vomiting, diffuse discomfort, better after discontinuation of amiodarone and Lipitor, patient had episode of nausea after amiodarone given, discontinued amiodarone and Lipitor at this time and consider this medication as an allergy to the patient. Anxiety, depression, continue on Zoloft and monitor Elevated BNP, echocardiogram showed left ventricular hypertrophy with hyp eractive ventricle, gradient across the left ventricular outflow tract probably due to hypovolemia, chronic left ventricular diastolic dysfunction, hypertensive heart disease. Coronary artery disease, history of multiple interventions in the past, had a total of 3 stents. Underwent cardiac catheterization on November 15, 2018 revealing moderate stenosis at the ostium of the right coronary artery, heavily calcified. 2 stents in the mid right coronary artery are patent with small vessel disease distally. Calcified left main coronary artery is moderate stenosis, nonobstructive disease. Patent stents in the mid circumflex artery with no obstructive disease, mild disease in LAD. Underwent cardiac catheterization on June 29, 2019 with balloon angioplasty to the mid right coronary artery and stenting to the ostium of the right coronary artery using Maryann 3 x 15 mm stent expanded to 3.25 mm with excellent results, still have moderate stenosis at the mid left main, mid LAD and mid circumflex artery with small vessel disease. Persistent atrial fibrillation, maintained on Xarelto, amiodarone discontinued, continue to monitor High risk of bleed, patient is maintained on aspirin, Plavix and Xarelto, I will consider stopping Xarelto if needed Peripheral edema, better at this time. Upper respiratory infection, recently diagnosed and treated with steroids as out patient. Continue to monitor. Hypertension, continue on home medication Hyperlipidemia, continue holding Lipitor. Monitor tolerance and response Carotid artery stenosis, mild bilateral nonobstructive disease per carotid duplex done December 2018 Prediabetes Patient was seen and evaluated with Cortney, examination performed, management plan was discussed, agree with the current scribed note, I made few changes to the note using Italic font Patient s feeling better, complaining of pedal edema Continue on Lasix, give one dose of Bumex, evaluate tolerance and response Clinical Quality Measures DVT/VTE Risk/Contraindication: Risk Factor Score Per Nursin RFS Level Per Nursing on Admit: 4+=Very High CORTNEY POWERS Jul 17, 2019 08:27 GEOFF THOMSON MD Jul 17, 2019 10:35
[2019-07-17] MEDS: DOCUSATE SODIUM 100 MG (COLACE) CAP PO SCH ×2 (08:37→20:43)
[2019-07-17] MEDS: BENZONATATE 100 MG (TESSALON) CAPSULE PO SCH ×3 (08:37→20:42)
[2019-07-17] MEDS: ASPIRIN E.C. 81 MG (ECOTRIN) TAB PO SCH (08:37)
[2019-07-17] MEDS: KCL 20 MEQ TAB (K-DUR) PO SCH (08:37)
[2019-07-17] MEDS: PANTOPRAZOLE 40 MG (PROTONIX) TAB PO SCH (08:38)
[2019-07-17] MEDS: METOCLOPRAMIDE 5 MG (REGLAN) TAB PO SCH ×2 (08:38→20:42)
[2019-07-17] MEDS: MAGNESIUM OXIDE (MAG-OX)400 MG TAB PO SCH (08:38)
[2019-07-17] MEDS: FUROSEMIDE 40 MG (LASIX) TAB PO SCH (08:38)
[2019-07-17] MEDS: CLOPIDOGREL 75 MG (PLAVIX) TABLET PO SCH (08:38)
[2019-07-17] MEDS: SENNA W/DOCUSATE (SENOKOT S) TABLET PO SCH ×2 (08:38→20:43)
[2019-07-17] MEDS: RT-ADVAIR HFA 45/21 MCG PER PUFF IH SCH ×3 (09:55→19:18)
[2019-07-17] MEDS: polyethylene glycoL POWDER 17 GM (MIRALAX) PACK PO SCH ×2 (09:56→22:19)
--- NOTE | 2019-07-17 09:59 | Occupational Ther Daily Note ---
OT Current Status-Daily Note Subjective Pt dozing in recliner. Pt stated that she had felt nauseous earlier this morning and does not feel well when WEISS came into room though will work with OT as much as she could. Mental Status/Objective Patient Orientation: Person, Place, Time, Situation ADL-Treatment Pt declined shower, agrees to sponge bath. After gathering supplies for pt, pt sat at sink and completed own sponge bath. SBA for safety while pt in stance to cleanse milka area/buttocks. Pt donned/doffed upper body clothing by self after set up. Pt transferred to toilet using FWW and grabbars, mod I. Completed toilet hygiene and clothing manipulation using FWW and grabbars, mod I. Pt completed oral care standing at sink, mod I. Pt doffed socks by self then used sock aide to don socks. Assist to wrap lower legs for edema. After therapy, pt sitting in recliner with call light/phone in reach. All needs met in room. Therapy Code Descriptions/Definitions Functional [place] Measure: 0=Not Assessed/NA 4=Minimal Assistance 1=Total Assistance 5=Supervision or Setup 2=Maximal Assistance 6=Modified [place] 3=Moderate Assistance 7=Complete IndependenceSCALE: Activities may be completed with or without assistive devices. 7-Ztnaoiwmsw-jgthwyc completes the activity by him/herself with no assistance from a helper. 5-Set-up or Clean-up Assistance-helper sets up or cleans up; patient completes activity. [place] assists only prior to or following the activity. 4-Supervision or Touching Assistance-helper provides verbal cues and/or touching/steadying and/or contact guard assistance as patient completes activity. Assistance may be provided throughout the activity or intermittently. 3-Partial/Moderate Assistance-helper does LESS THAN HALF the effort. [place] lifts, holds or supports trunk or limbs, but provides less than half the effort. 2-Substantial/Maximal Assistance-helper does MORE THAN HALF the effort. [place] lifts or holds trunk or limbs and provides more than half the effort. 5-Yxbogesft-ncdzch does ALL the effort. Patient does none of the effort to complete the activity. Or, the assistance of 2 or more helpers is required for the patient to complete the activity. If activity was not attempted, code reason: 7-Patient Refused. 9-Not Applicable-not attempted and the patient did not perform the activity bef ore the current illness, exacerbation or injury. 10-Not Attempted due to Environmental Limitations-(lack of equipment, weather r estraints, etc.). 88-Not Attempted due to Medical Conditions or Safety Concerns. Oral Hygiene (QC): 6 Shower/Bathe Self (QC): 4 Upper Body Dressing (QC): 5 Lower Body Dressing (QC): 5 On/Off Footwear: 3 Toileting Hygiene (QC): 6 Toilet Transfer (QC): 6 OT Slps Goals Slps Goals Time Frame: Aug 01, 2019 Eating (QC): 6 Oral Hygiene (QC): 6 Toileting Hygiene (QC): 6 Shower/Bathe Self (QC): 5 Upper Body Dressing (QC): 6 Lower Body Dressing (QC): 6 On/Off Footwear (QC): 6 Additional Goals: 1-Demonstrate ADL Tasks, 2-Verbalize Understanding, 3- ImproveStrength/Abdiel 1=Demonstrate adherence to instructed precautions during ADL tasks. 2=Patient will verbalize/demonstrate understanding of assistive devices/modifications for ADL. 3=Patient will improve strength/tolerance for activity to enable patient to perform ADL's. OT Education/Plan Problem List/Assessment Assessment: Decreased Activ Tolerance, Decreased UE Strength, Impaired Self- Care Skills Discharge Recommendations Plan/Recommendations: Continue POC Treatment Plan/Plan of Care Patient would benefit from OT for education, treatment and training to promote independence in ADL's, mobility, safety and/or upper extremity function for ADL's. Plan of Care: ADL Retraining, Functional Mobility, Group Exercise/Act as Ind, UE Funct Exercise/Act Treatment Duration: Aug 01, 2019 Frequency: At least 5 of 7 days/Wk (IRF) Estimated Hrs Per Day: 1.5 hours per day Agreement: Yes Rehab Potential: Fair Time/GCodes Start Time: 09:00 Stop Time: 10:00 Total Time Billed (hr/min): 60 Billed Treatment Time 1 visit-ADL 4 (60 min) NIGHAT MAYORGA Jul 17, 2019 09:59
[2019-07-17] MEDS ORDERED: BUMETANIDE 1 MG (BUMEX) TAB PO NR (10:30)
--- NOTE | 2019-07-17 10:55 | Physical Therapy Daily Note ---
PT Daily Note-Current Subjective Patient in recliner pre tx, agrees to PT, has no complaints of pain but states she is ill. Appearance Patient in recliner post tx with nurse call, phone, tray, all needs met. Mental Status Patient Orientation: Person, Place, Situation Attachments: Oxygen Transfers SCALE: Activities may be completed with or without assistive devices. 9-Nqpmxnrdqh-yuolmuo completes the activity by him/herself with no assistance from a helper. 5-Set-up or Clean-up Assistance-helper sets up or cleans up; patient completes activity. [place] assists only prior to or following the activity. 4-Supervision or Touching Assistance-helper provides verbal cues and/or touching/steadying and/or contact guard assistance as patient completes activity. Assistance may be provided throughout the activity or intermittently. 3-Partial/Moderate Assistance-helper does LESS THAN HALF the effort. [place] lifts, holds or supports trunk or limbs, but provides less than half the effort. 2-Substantial/Maximal Assistance-helper does MORE THAN HALF the effort. [place] lifts or holds trunk or limbs and provides more than half the effort. 5-Camclacnz-xkoodl does ALL the effort. Patient does none of the effort to complete the activity. Or, the assistance of 2 or more helpers is required for the patient to complete the activity. If activity was not attempted, code reason: 7-Patient Refused. 9-Not Applicable-not attempted and the patient did not perform the activity before the current illness, exacerbation or injury. 10-Not Attempted due to Environmental Limitations-(lack of equipment, weather restraints, etc.). 88-Not Attempted due to Medical Conditions or Safety Concerns. Sit to Stand (QC): 6 Chair/Elg-qk-Fupae Xfer(QC): 6 Weight Bearing Right Lower Extremity: Right Full Weight Bearing Left Lower Extremity: Left Full Weight Bearing Gait Training Distance: 150'x2 Walk 10 feet (QC): 4 Walk 50 ft with 2 Turns(QC): 4 Walk 150 ft (QC): 4 Patient needs assist to carry O2 tank, endurance improving. Exercises Standing: Hamstring curls, Heel/toe raises, 3 way Ex=Flex, Abd, Ext (not ext), Marching, Mini squats, Sit to Stand, Side steps (3 trips down and back on side of parallel bars) Standing Reps: 10 NuStep Minutes: 15 NuStep Workload: 4 Treatments transfers, ambulation, functional strengthening Assessment Current Status: Fair Progress improving endurance PT Short Term Goals Short Term Goals Time Frame: Jul 11, 2019 PT Menu Planner Goals Menu Planner Goals PT Menu Planner Goals Time Frame: Aug 05, 2019 Roll Left & Right (QC): 6 Sit to Lying (QC): 6 Lying-Sitting on Side/Bed(QC): 6 Sit to Stand (QC): 6 Chair/Xdj-qi-Yhdhg Xfer(QC): 6 Toilet Transfer (QC): 6 Car Transfer (QC): 6 Does the Patient Walk: Yes Walk 10 feet (QC): 6 Walk 50ft with 2 Turns (QC): 6 Walk 150 ft (QC): 6 Walking 10ft on Uneven Surface: 6 1 Step (curb) (QC): 6 Does the Pt use WC or Scooter?: No PT Plan Problem List Problem List: Activity Tolerance, Functional Strength, Safety, Balance, Gait, Transfer, Bed Mobility Treatment/Plan Treatment Plan: Continue Plan of Care Treatment Plan: Bed Mobility, Concurrent Therapy, Education, Functional Activity Abdiel, Functional Strength, Group Therapy, Gait, Safety, Therapeutic Ex ercise, Transfers Treatment Duration: Aug 05, 2019 Frequency: At least 5 of 7 days/Wk (IRF) Estimated Hrs Per Day: 1.5 hours per day Patient and/or Family Agrees t: Yes Safety Risks/Education Patient Education: Gait Training, Transfer Techniques, Correct Positioning, Safety Issues Teaching Recipient: Patient Teaching Methods: Demonstration, Discussion Response to Teaching: Reinforcement Needed Time/GCodes Time In: 1000 Time Out: 1100 Total Billed Treatment Time: 60 Total Billed Treatment 1 visit EX 30' FA 30' CONOR PEARSON PT Jul 17, 2019 10:55
--- NOTE | 2019-07-17 11:36 | Occupational Ther Daily Note ---
OT Current Status-Daily Note Subjective Pt alert, sitting in recliner. Pt agrees to therapy. No c/o pain. Mental Status/Objective Patient Orientation: Person, Place, Time, Situation Attachments: Oxygen ADL-Treatment Therapy Code Descriptions/Definitions Functional [place] Measure: 0=Not Assessed/NA 4=Minimal Assistance 1=Total Assistance 5=Supervision or Setup 2=Maximal Assistance 6=Modified [place] 3=Moderate Assistance 7=Complete IndependenceSCALE: Activities may be completed with or without assistive devices. 4-Jzmnfqcecl-oebkyrb completes the activity by him/herself with no assistance from a helper. 5-Set-up or Clean-up Assistance-helper sets up or cleans up; patient completes activity. [place] assists only prior to or following the activity. 4-Supervision or Touching Assistance-helper provides verbal cues and/or touching/steadying and/or contact guard assistance as patient completes activity. Assistance may be provided throughout the activity or intermittently. 3-Partial/Moderate Assistance-helper does LESS THAN HALF the effort. [place] lifts, holds or supports trunk or limbs, but provides less than half the effort. 2-Substantial/Maximal Assistance-helper does MORE THAN HALF the effort. [place] lifts or holds trunk or limbs and provides more than half the effort. 2-Szwcrneyv-uqwolt does ALL the effort. Patient does none of the effort to complete the activity. Or, the assistance of 2 or more helpers is required for the patient to complete the activity. If activity was not attempted, code reason: 7-Patient Refused. 9-Not Applicable-not attempted and the patient did not perform the activity before the current illness, exacerbation or injury. 10-Not Attempted due to Environmental Limitations-(lack of equipment, weather restraints, etc.). 88-Not Attempted due to Medical Conditions or Safety Concerns. Other Treatment Pt required skilled instruction to complete light resistance theraband UE exer cises. Pt was able to demonstrate understanding of one exercise then required skilled instructions to remember other exercise given last week and added 2 more exercises. Pt required verbal and physical cues to complete each exercise with correct technique. Pt completed 4 exercises 3 sets 10 reps with recovery breaks between each set. Education Response to Teaching: Verbalize Understanding, Return Demonstration, Reinforcement Needed OT Volunteer Fire Fighter Goals Volunteer Fire Fighter Goals Time Frame: Aug 01, 2019 Eating (QC): 6 Oral Hygiene (QC): 6 Toileting Hygiene (QC): 6 Shower/Bathe Self (QC): 5 Upper Body Dressing (QC): 6 Lower Body Dressing (QC): 6 On/Off Footwear (QC): 6 Additional Goals: 1-Demonstrate ADL Tasks, 2-Verbalize Understanding, 3- ImproveStrength/Abdiel 1=Demonstrate adherence to instructed precautions during ADL tasks. 2=Patient will verbalize/demonstrate understanding of assistive de vices/modifications for ADL. 3=Patient will improve strength/tolerance for activity to enable patient to perform ADL's. OT Education/Plan Problem List/Assessment Assessment: Decreased Activ Tolerance, Decreased UE Strength, Impaired Self- Care Skills Discharge Recommendations Plan/Recommendations: Continue POC Treatment Plan/Plan of Care Patient would benefit from OT for education, treatment and training to promote independence in ADL's, mobility, safety and/or upper extremity function for ADL's. Plan of Care: ADL Retraining, Functional Mobility, Group Exercise/Act as Ind, UE Funct Exercise/Act Treatment Duration: Aug 01, 2019 Frequency: At least 5 of 7 days/Wk (IRF) Estimated Hrs Per Day: 1.5 hours per day Agreement: Yes Rehab Potential: Fair Time/GCodes Start Time: 11:05 Stop Time: 11:35 Total Time Billed (hr/min): 30 Billed Treatment Time 1 visit-EX 2 (30 min) NIGHAT MAYORGA Jul 17, 2019 11:36
--- NOTE | 2019-07-17 12:07 | PM&R Progress Note ---
Subjective HPI/CC On Admission Date Seen by Provider: Jul 17, 2019 Time Seen by Provider: 09:15 Subjective/Events-last exam Pt doing very well Creatinine 1.26 Potassium 3.5 Edema managed with wide SARAH wraps Insomnia last night she gets frustrated with A little bit nauseated today No pain is reported BM yesterday No pain is reported Such a dramatic improvement overall in her status Denies any significant other new issues Checked meds and labs Reviewed therapy notes Conferred with home care and home health aides teacher of Systems Gastrointestinal: Nausea Objective Exam Vital Signs Vital Signs Date Time Temp Pulse Resp B/P (MAP) Pulse Ox O2 Delivery O2 Flow Rate FiO2 07/18/19 05:21 36.8 84 18 127/72 (90) 97 Nasal Cannula 2.00 Capillary Refill : Less Than 3 Seconds General Appearance: No Apparent Distress, WD/WN, Chronically ill, Obese HEENT: PERRL/EOMI, Normal ENT Inspection, Pharynx Normal Neck: Full Range of Motion, Normal Inspection, Non Tender, Supple, Carotid Bruit Respiratory: Chest Non Tender, Lungs Clear, Normal Breath Sounds, No Accessory Muscle Use, No Respiratory Distress Cardiovascular: Regular Rate, Rhythm, No Edema, No Gallop, No JVD, No Murmur, Normal Peripheral Pulses Gastrointestinal: Normal Bowel Sounds, No Organomegaly, No Pulsatile Mass, Non Tender, Soft Back: Normal Inspection, No CVA Tenderness, No Vertebral Tenderness Extremity: Normal Capillary Refill, Normal Inspection, Normal Range of Motion, Non Tender, No Calf Tenderness, No Pedal Edema Neurologic/Psychiatric: Alert, Oriented x3, No Motor/Sensory Deficits, Normal Mood/Affect, soa architect II-XII Norm as Tested, Motor Weakness (generalized weakness all extremities) Skin: Normal Color, Warm/Dry Lymphatic: No Adenopathy Results/Procedures Lab Patient resulted labs reviewed. FIM Transfers Therapy Code Descriptions/Definitions Functional [place] Measure: 0=Not Assessed/NA 4=Minimal Assistance 1=Total Assistance 5=Supervision or Setup 2=Maximal Assistance 6=Modified [place] 3=Moderate Assistance 7=Complete IndependenceSCALE: Activities may be completed with or without assistive devices. 1-Mqrbusbqss-jnnpgti completes the activity by him/herself with no assistance from a helper. 5-Set-up or Clean-up Assistance-helper sets up or cleans up; patient completes activity. [place] assists only prior to or following the activity. 4-Supervision or Touching Assistance-helper provides verbal cues and/or touching/steadying and/or contact guard assistance as patient completes activity. Assistance may be provided throughout the activity or intermittently. 3-Partial/Moderate Assistance-helper does LESS THAN HALF the effort. [place] lifts, holds or supports trunk or limbs, but provides less than half the effort. 2-Substantial/Maximal Assistance-helper does MORE THAN HALF the effort. [place] lifts or holds trunk or limbs and provides more than half the effort. 9-Dhdxclwco-glruqu does ALL the effort. Patient does none of the effort to complete the activity. Or, the assistance of 2 or more helpers is required for the patient to complete the activity. If activity was not attempted, code reason: 7-Patient Refused. 9-Not Applicable-not attempted and the patient did not perform the activity before the current illness, exacerbation or injury. 10-Not Attempted due to Environmental Limitations-(lack of equipment, weather restraints, etc.). 88-Not Attempted due to Medical Conditions or Safety Concerns. Roll Left to Right (QC): 6 Sit to Lying (QC): 6 Sit to Stand (QC): 6 Chair/Cqj-by-Hospp Xfer(QC): 6 Car Transfer (QC): 4 (Patient attempted putting feet in car first when instructed to perform like she normally does.) Gait Training Does the Patient Walk?: Yes Distance: 150'x2 Walk 10 feet (QC): 4 Walk 50 ft with 2 Turns(QC): 4 Walk 150 ft (QC): 4 Walking 10ft/uneven surface-QC: 4 Gait Persons Needed: 1 Gait Assistive Device: FWW Wheelchair Training Does the Pt Use a Wheelchair?: No Stair Training #of Steps: 1 1 Step (curb) (QC): 4 Balance Picking up an Object (QC): 4 ADL-Treatment Eating (QC): 6 Oral Hygiene (QC): 6 Shower/Bathe Self (QC): 4 Upper Body Dressing (QC): 5 Lower Body Dressing (QC): 5 On/Off Footwear (QC): 3 Toileting Hygiene (QC): 6 Toilet Transfer (QC): 6 Assessment/Plan Assessment and Plan Assess & Plan/Chief Complaint Assessment: Cardiac debility s/p NSTEMI Severe debilitating nausea and vomiting now resolved since DC Amiodarone and Lipitor Severe deconditioning CAD w/recent stent placement AF OAC CRI Hyponatremia Delirium resolved Plan: IVF HL Fluid restriction to continue until labs are checked tomorrow Monitor closely Esophagram reviewed Dr Reyez had minimized meds to help with nausea which has resolved her issues (1) Debility Status: Acute (2) NSTEMI (non-ST elevated myocardial infarction) Status: Acute (3) Angina at rest Status: Acute (4) Atrial fibrillation Status: Chronic (5) CAD (coronary artery disease) Status: Chronic (6) Hypothyroidism Status: Chronic (7) HTN (hypertension) Status: Chronic (8) HLD (hyperlipidemia) Status: Chronic (9) Acute kidney insufficiency Status: Resolved Resolution Date/Time: 07/10/19 @ 16:43 (10) DVT prophylaxis Status: Acute (11) CHF (congestive heart failure) Status: Acute (12) Duodenitis Status: Acute (13) Dyspepsia Status: Acute (14) Elevated brain natriuretic peptide (BNP) level Status: Acute ALICIA GASCA DO Jul 17, 2019 12:07
--- NOTE | 2019-07-17 12:55 | Physical Therapy Daily Note ---
PT Daily Note-Current Subjective Patient in recliner pre tx, agrees to PT, no complaints of pain. Appearance Patient in recliner post tx with nurse call, phone, tray, all needs met. Mental Status Patient Orientation: Person, Place, Situation Attachments: Oxygen Transfers SCALE: Activities may be completed with or without assistive devices. 3-Oreyyseszn-ijocbes completes the activity by him/herself with no assistance from a helper. 5-Set-up or Clean-up Assistance-helper sets up or cleans up; patient completes activity. [place] assists only prior to or following the activity. 4-Supervision or Touching Assistance-helper provides verbal cues and/or touching/steadying and/or contact guard assistance as patient completes activity. Assistance may be provided throughout the activity or intermittently. 3-Partial/Moderate Assistance-helper does LESS THAN HALF the effort. [place] lifts, holds or supports trunk or limbs, but provides less than half the effort. 2-Substantial/Maximal Assistance-helper does MORE THAN HALF the effort. [place] lifts or holds trunk or limbs and provides more than half the effort. 1-Mjuhuysew-lrqosp does ALL the effort. Patient does none of the effort to complete the activity. Or, the assistance of 2 or more helpers is required for the patient to complete the activity. If activity was not attempted, code reason: 7-Patient Refused. 9-Not Applicable-not attempted and the patient did not perform the activity before the current illness, exacerbation or injury. 10-Not Attempted due to Environmental Limitations-(lack of equipment, weather restraints, etc.). 88-Not Attempted due to Medical Conditions or Safety Concerns. Sit to Stand (QC): 6 Chair/Otl-oa-Pfbvh Xfer(QC): 6 Weight Bearing Right Lower Extremity: Right Full Weight Bearing Left Lower Extremity: Left Full Weight Bearing Gait Training Distance: 150'x2 Walk 10 feet (QC): 4 Walk 50 ft with 2 Turns(QC): 4 Walk 150 ft (QC): 4 Gait Assistive Device: FWW SBA, slow but steady Exercises Seated Therapy Exercises: Ankle pumps, Hip flexion, Hip abd/add (with RTB and ball) LAQ alternating for 5 min Treatments LE strengthening, ambulation, transfers Assessment Current Status: Fair Progress improving endurance and LE strength PT Short Term Goals Short Term Goals Time Frame: Jul 11, 2019 PT Skilled Nursing Goals Director Of Social Work Goals PT Skilled Nursing Goals Time Frame: Aug 05, 2019 Roll Left & Right (QC): 6 Sit to Lying (QC): 6 Lying-Sitting on Side/Bed(QC): 6 Sit to Stand (QC): 6 Chair/Ylw-cr-Nncez Xfer(QC): 6 Toilet Transfer (QC): 6 Car Transfer (QC): 6 Does the Patient Walk: Yes Walk 10 feet (QC): 6 Walk 50ft with 2 Turns (QC): 6 Walk 150 ft (QC): 6 Walking 10ft on Uneven Surface: 6 1 Step (curb) (QC): 6 Does the Pt use WC or Scooter?: No PT Plan Problem List Problem List: Activity Tolerance, Functional Strength, Safety, Balance, Gait, Transfer, Bed Mobility Treatment/Plan Treatment Plan: Continue Plan of Care Treatment Plan: Bed Mobility, Concurrent Therapy, Education, Functional Activity Abdiel, Functional Strength, Group Therapy, Gait, Safety, Therapeutic Exercise, Transfers Treatment Duration: Aug 05, 2019 Frequency: At least 5 of 7 days/Wk (IRF) Estimated Hrs Per Day: 1.5 hours per day Patient and/or Family Agrees t: Yes Safety Risks/Education Patient Education: Gait Training, Transfer Techniques, Correct Positioning, Safety Issues Teaching Recipient: Patient Teaching Methods: Demonstration, Discussion Response to Teaching: Reinforcement Needed Time/GCodes Time In: 1230 Time Out: 1300 Total Billed Treatment Time: 30 Total Billed Treatment 1 visit EX 15' GT 15' CONOR PEARSON PT Jul 17, 2019 12:55
--- OUTSIDE RECORDS SUMMARY | 2019-07-17 13:35 | XMS REPORT | Continuity of Care Document ---
Author Organization Unknown Address Unknown Phone Unavailable Allergies Active Description Code Type Severity Reaction Onset Reported/Identified Relationship to Patient Clinical Status Yes acetaminophen [id number] Rupesh g Allergy Unknown N/A 07/21/2018 Yes Penicillins [id number] Drug Aller gy Unknown N/A 07/21/2018 Yes propoxyphene [id number] Drug Allergy Unknown N/A 07/21/2018 Yes AMIO AMIO Moderate Nausea 07/12/2019 Medications There is no data. Problems Date Dx Coded Attending Type Code Diagnosis Diagnosed By 07/21/2018 ANNABEL BARKSDALE MD, Ot E03 .9 HYPOTHYROIDISM, UNSPECIFIED 07/21/2018 ANNABEL BARKSDALE MD Ot E78.00 PURE HYPERCHOLESTEROLEMIA, UNSPECIFIED 07/21/2018 ANNABEL BARKSDALE MD Ot I10 ESSENTIAL (PRIMARY) HYPERTENSION 07/21/2018 ANNABEL BARKSDALE MD Ot I25.10 ATHSCL HEART DISEASE OF [place] CORONARY 07/21/2018 ANNABEL BARKSDALE MD Ot M25.512 PAIN IN LEFT SHOULDER 07/21/2018 ANNABEL BARKSDALE MD Ot M25.812 OTHER SPECIFIED JOINT DISORDERS, LEFT SH 07/21/2018 ANNABEL BARKSDALE MD Ot Z88 .0 ALLERGY STATUS TO PENICILLIN 07/21/2018 ANNABEL BARKSDALE MD Ot Z88 .5 ALLERGY STATUS TO NARCOTIC AGENT STATUS 07/21/2018 ANNABEL BARKSDALE MD Ot Z88 .6 ALLERGY STATUS TO ANALGESIC AGENT STATUS 07/21/2018 ANNABEL BARKSDALE MD Ot Z95 .5 PRESENCE OF CORONARY ANGIOPLASTY IMPLANT 07/25/2018 ANNABEL BARKSDALE MD Ot E03 .9 HYPOTHYROIDISM, UNSPECIFIED 07/25/2018 ANNABEL BARKSDALE MD Ot E78.00 PURE HYPERCHOLESTEROLEMIA, UNSPECIFIED 07/25/2018 ANNABEL BARKSDALE MD Ot I10 ESSENTIAL (PRIMARY) HYPERTENSION 07/25/2018 ANNABEL BARKSDALE MD Ot I25.10 ATHSCL HEART DISEASE OF [place] CORONARY 07/25/2018 ANNABEL BARKSDALE MD Ot M25.512 PAIN IN LEFT SHOULDER 07/25/2018 ANNABEL BARKSDALE MD Ot M25.812 OTHER SPECIFIED JOINT DISORDERS, LEFT SH 07/25/2018 ANNABEL BARKSDALE MD Ot Z88 .0 ALLERGY STATUS TO PENICILLIN 07/25/2018 ANNABEL BARKSDALE MD Ot Z88 .5 ALLERGY STATUS TO NARCOTIC AGENT STATUS 07/25/2018 ANNABEL BARKSDALE MD Ot Z88 .6 ALLERGY STATUS TO ANALGESIC AGENT STATUS 07/25/2018 ANNABEL BARKSDALE MD Ot Z95 .5 PRESENCE OF CORONARY ANGIOPLASTY IMPLANT 11/16/2018 FLOR HUANG MD Ot E03.9 HYPOTHYROIDISM, UNSPECIFIED 11/16/2018 FLOR HUANG MD Ot E78.5 HYPERLIPIDEMIA, UNSPECIFIED 11/16/2018 FLOR HUANG MD Ot I10 ESSENTIAL (PRIMARY) HYPERTENSION 11/16/2018 FLOR HUANG MD Ot I25.1 10 ATHSCL HEART DISEASE OF [place] COR ART W 11/16/2018 FLOR HUANG MD R Ot I25.2 OLD MYOCARDIAL INFARCTION 11/16/2018 FLOR HUANG MD Ot I48.0 PAROXYSMAL ATRIAL FIBRILLATION 11/16/2018 FLOR HUANG MD Ot N17.9 ACUTE KIDNEY FAILURE, UNSPECIFIED 11/16/2018 FLOR HUANG MD Ot R73.0 3 PREDIABETES 11/16/2018 FLOR HUANG MD Ot Z79.0 1 HALF-WAY (CURRENT) USE OF ANTICOAGULANT 11/16/2018 FLOR HUANG MD Ot Z88.0 ALLERGY STATUS TO PENICILLIN 11/16/2018 FLOR HUANG MD Ot Z95.5 PRESENCE OF CORONARY ANGIOPLASTY IMPLANT 06/10/2019 ONOFRE CARRERA MD A Ot E03. 9 HYPOTHYROIDISM, UNSPECIFIED 06/10/2019 ONOFRE CARRERA MD Ot E78. 00 PURE HYPERCHOLESTEROLEMIA, UNSPECIFIED 06/10/2019 ONOFRE CARRERA MD A Ot I11. 0 HYPERTENSIVE HEART DISEASE WITH HEART FA 06/10/2019 ONOFRE CARRERA MD A Ot I25. 10 ATHSCL HEART DISEASE OF [place] CORONARY 06/10/2019 ONOFRE CARRERA MD A Ot I48. 91 UNSPECIFIED ATRIAL FIBRILLATION 06/10/2019 ONOFRE CARRERA MD A Ot I50. 9 HEART FAILURE, UNSPECIFIED 06/10/2019 DEANDRE MCLEAN, ONOFRE A Ot R06. 00 DYSPNEA, UNSPECIFIED 06/10/2019 DEANDRE MCLEAN, ONOFRE A Ot Z88. 0 ALLERGY STATUS TO PENICILLIN 06/10/2019 DEANDRE MCLEAN, ONOFRE A Ot Z88. 8 ALLERGY STATUS TO OTH DRUG/MEDS/BIOL SUB 06/10/2019 DEANDRE MCLEAN, ONOFRE A Ot Z95. 5 PRESENCE OF CORONARY ANGIOPLASTY IMPLANT 06/15/2019 DEANDRE MCLEAN, ONOFRE A Ot E03. 9 HYPOTHYROIDISM, UNSPECIFIED 06/15/2019 DEANDRE MCLEAN, ONOFRE A Ot E78. 00 PURE HYPERCHOLESTEROLEMIA, UNSPECIFIED 06/15/2019 DEANDRE MCLEAN, ONOFRE A Ot I11. 0 HYPERTENSIVE HEART DISEASE WITH HEART FA 06/15/2019 DEANDRE MCLEAN, ONOFRE A Ot I25. 10 ATHSCL HEART DISEASE OF [place] CORONARY 06/15/2019 DEANDRE MCLEAN, ONOFRE A Ot I48. 91 UNSPECIFIED ATRIAL FIBRILLATION 06/15/2019 DEANDRE MCLEAN, ONOFRE A Ot I50. 9 HEART FAILURE, UNSPECIFIED 06/15/2019 DEANDRE MCLEAN, ONOFRE A Ot R06. 00 DYSPNEA, UNSPECIFIED 06/15/2019 DEANDRE MCLEAN, ONOFRE A Ot Z88. 0 ALLERGY STATUS TO PENICILLIN 06/15/2019 DEANDRE MCLEAN, ONOFRE A Ot Z88. 8 ALLERGY STATUS TO OTH DRUG/MEDS/BIOL SUB 06/15/2019 DEANDRE MCLEAN, ONOFRE A Ot Z95. 5 PRESENCE OF CORONARY ANGIOPLASTY IMPLANT 06/19/2019 DEANDRE MCLEAN, ONOFRE A Ot E03. 9 HYPOTHYROIDISM, UNSPECIFIED 06/19/2019 DEANDRE MCLEAN, ONOFRE A Ot E78. 00 PURE HYPERCHOLESTEROLEMIA, UNSPECIFIED 06/19/2019 DEANDRE MCLEAN, ONOFRE A Ot I11. 0 HYPERTENSIVE HEART DISEASE WITH HEART FA 06/19/2019 DEANDRE MCLEAN, ONOFRE A Ot I25. 10 ATHSCL HEART DISEASE OF [place] CORONARY 06/19/2019 DEANDRE MCLEAN, ONOFRE A Ot I48. 91 UNSPECIFIED ATRIAL FIBRILLATION 06/19/2019 DEANDRE MCLEAN, ONOFRE A Ot I50. 9 HEART FAILURE, UNSPECIFIED 06/19/2019 DEANDRE MCLEAN, ONOFRE A Ot R06. 00 DYSPNEA, UNSPECIFIED 06/19/2019 DEANDRE MCLEAN, ONOFRE A Ot Z88. 0 ALLERGY STATUS TO PENICILLIN 06/19/2019 DEANDRE MCLEAN, ONOFRE A Ot Z88. 8 ALLERGY STATUS TO OTH DRUG/MEDS/BIOL SUB 06/19/2019 DEANDRE MCLEAN, ONOFRE A Ot Z95. 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 ART W 06/30/2019 FLOR HUANG MD Ot I48.1 1 LONGSTANDING PERSISTENT ATRIAL FIBRILLAT 06/30/2019 FLOR HUANG MD Ot I50.3 2 CHRONIC DIASTOLIC (CONGESTIVE) HEART SINAN 06/30/2019 FLOR HUANG MD Ot I65.2 3 OCCLUSION AND STENOSIS OF BILATERAL [place] 06/30/2019 REINA MCLEAN, FLOR R Ot N18.3 CHRONIC KIDNEY DISEASE, STAGE 3 (MODERAT 06/30/2019 REINA MCLEAN, FLOR Underwood Ot R73.0 3 PREDIABETES 06/30/2019 REINA MCLEAN, FLOR Underwood Ot T82.855A STENOSIS OF CORONARY ARTERY STENT, INITI 06/30/2019 FLOR HUANG MD R Ot Z95.5 PRESENCE OF CORONARY ANGIOPLASTY IMPLANT 07/01/2019 HUSSEIN DO, DONALD L Ot E03.9 HYPOTHYROIDISM, UNSPECIFIED 07/01/2019 HUSSEIN DO, DONALD L Ot I13.0 HYP HRT CHR [place] DIS W HRT FAIL AND ST 07/01/2019 HUSSEIN DO, DONALD L Ot N18.3 CHRONIC KIDNEY DISEASE, STAGE 3 (MODERAT 07/01/2019 HUSSEIN DO, DONALD L Ot R06.0 2 SHORTNESS OF BREATH 07/01/2019 HUSSEIN DO, DONALD L Ot R10.8 4 GENERALIZED ABDOMINAL PAIN 07/01/2019 HUSSEIN DO, DONALD L Ot R14.0 ABDOMINAL DISTENSION (GASEOUS) 07/01/2019 HUSSEIN DO, DONALD L Ot Z79.0 1 HALF-WAY (CURRENT) USE OF ANTICOAGULANT 07/01/2019 HUSSEIN DO, DONALD L Ot Z79.0 2 HALF-WAY (CURRENT) USE OF ANTITHROMBOTI 07/01/2019 HUSSEIN DO, DONALD L Ot Z79.5 1 [employer] (CURRENT) USE OF INHALED STERO 07/01/2019 HUSSEIN DO, DONALD L Ot Z79.8 2 [employer] (CURRENT) USE OF ASPIRIN 07/01/2019 HUSSEIN DO, DONALD L Ot Z88.0 ALLERGY STATUS TO PENICILLIN 07/01/2019 HUSSEIN DO, DONALD L Ot Z88.8 ALLERGY STATUS TO OTH DRUG/MEDS/BIOL SUB 07/01/2019 HUSSEIN DO, DONALD L Ot Z95.5 PRESENCE OF CORONARY ANGIOPLASTY IMPLANT 07/01/2019 HUSSEIN DO, DONALD L Ot Z99.8 1 DEPENDENCE ON SUPPLEMENTAL OXYGEN 07/03/2019 ROVENSTINE DO, MARVA Sellers Ot E03.9 HYPOTHYROIDISM, UNSPECIFIED 07/03/2019 ROVENSTINE DO, MARVA Sellers Ot E78.00 PURE HYPERCHOLESTEROLEMIA, UNSPECIFIED 07/03/2019 ROVENSTINE DO, MARVA Sellers Ot I13.0 HYP HRT CHR [place] DIS W HRT FAIL AND ST 07/03/2019 ROVENSTINE DO, MARVA Sellers Ot I25.10 ATHSCL HEART DISEASE OF [place] CORONARY 07/03/2019 ROVENSTINE DO, MARVA Sellers Ot I48.0 PAROXYSMAL ATRIAL FIBRILLATION 07/03/2019 ROVENSTINE DO, MARVA L Ot I50.9 HEART FAILURE, UNSPECIFIED 07/03/2019 ROVENSTINE DO, MARVA L Ot N18.3 CHRONIC KIDNEY DISEASE, STAGE 3 (MODERAT 07/03/2019 ROVENSTINE DO, MARVA L Ot R10.13 EPIGASTRIC PAIN 07/03/2019 ROVENSTINE DO, MARVA L Ot R11.2 NAUSEA WITH VOMITING, UNSPECIFIED 07/03/2019 ROVENSTINE DO, MARVA L Ot Z79.01 VP [employer]LYT[employer] (CURRENT) USE OF ANTICOAGULANT 07/03/2019 ROVENSTINE DO, MARVA L Ot Z79.02 HALF-WAY (CURRENT) USE OF ANTITHROMBOTI 07/03/2019 ROVENSTINE DO, MARVA Sellers Ot Z79.51 HALF-WAY (CURRENT) USE OF INHALED STERO 07/03/2019 ROVENSTINE DO, MARVA L Ot Z79.82 HALF-WAY (CURRENT) USE OF ASPIRIN 07/03/2019 ROVENSTINE DO, MARVA L Ot Z88.0 ALLERGY STATUS TO PENICILLIN 07/03/2019 ROVENSTINE DO, MARVA L Ot Z88.8 ALLERGY STATUS TO OTH DRUG/MEDS/BIOL SUB 07/03/2019 ROVENSTINE DO, MARVA L Ot Z95.5 PRESENCE OF CORONARY ANGIOPLASTY IMPLANT 07/04/2019 HUSSEIN DO, DONALD L Ot E03.9 HYPOTHYROIDISM, UNSPECIFIED 07/04/2019 HUSSEIN DO, DONALD L Ot I13.0 HYP HRT CHR [place] DIS W HRT FAIL AND ST 07/04/2019 HUSSEIN DO, DONALD L Ot N18.3 CHRONIC KIDNEY DISEASE, STAGE 3 (MODERAT 07/04/2019 HUSSEIN DO, DONALD L Ot R06.0 2 SHORTNESS OF BREATH 07/04/2019 HUSSEIN DO, DONALD L Ot R10.8 4 GENERALIZED ABDOMINAL PAIN 07/04/2019 HUSSEIN DO, DONALD L Ot R14.0 ABDOMINAL DISTENSION (GASEOUS) 07/04/2019 HUSSEIN DO, DONALD L Ot Z79.0 1 HALF-WAY (CURRENT) USE OF ANTICOAGULANT 07/04/2019 HUSSEIN DO, DONALD L Ot Z79.0 2 [employer] (CURRENT) USE OF ANTITHROMBOTI 07/04/2019 HUSSEIN DO, DONALD L Ot Z79.5 1 [employer] (CURRENT) USE OF INHALED STERO 07/04/2019 HUSSEIN DO, DONALD L Ot Z79.8 2 HALF-WAY (CURRENT) USE OF ASPIRIN 07/04/2019 HUSSEIN DO, DONALD L Ot Z88.0 ALLERGY STATUS TO PENICILLIN 07/04/2019 HUSSEIN DO, DONALD L Ot Z88.8 ALLERGY STATUS TO OTH DRUG/MEDS/BIOL SUB 07/04/2019 HUSSEIN DO, DONALD L Ot Z95.5 PRESENCE OF CORONARY ANGIOPLASTY IMPLANT 07/04/2019 HUSSEIN DO, DONALD L Ot Z99.8 1 DEPENDENCE ON SUPPLEMENTAL OXYGEN 07/05/2019 ROVENSTINE DO, MARVA L Ot E03.9 HYPOTHYROIDISM, UNSPECIFIED 07/05/2019 ROVENSTINE DO, MARVA L Ot E78.00 PURE HYPERCHOLESTEROLEMIA, UNSPECIFIED 07/05/2019 ROVENSTINE DO, MARVA L Ot I13.0 HYP HRT CHR [place] DIS W HRT FAIL AND ST 07/05/2019 ROVENSTINE DO, MARVA Verito Ot I25.10 ATHSCL HEART DISEASE OF [place] CORONARY 07/05/2019 ROVENSTINE DO, MARVA Sellers Ot I48.0 PAROXYSMAL ATRIAL FIBRILLATION 07/05/2019 ROVENSTINE DO, MARVA Verito Ot I50.9 HEART FAILURE, UNSPECIFIED 07/05/2019 ROVENSTINE DO, MARVA Sellers Ot N18.3 CHRONIC KIDNEY DISEASE, STAGE 3 (MODERAT 07/05/2019 ROVENSTINE DO, MARVA Verito Ot R10.13 EPIGASTRIC PAIN 07/05/2019 ROVENSTINE DO, MARVA Verito Ot R11.2 NAUSEA WITH VOMITING, UNSPECIFIED 07/05/2019 ROVENSTINE DO, MARVA Sellers Ot Z79.01 HALF-WAY (CURRENT) USE OF ANTICOAGULANT 07/05/2019 ROVENSTINE DO, MARVA Sellers Ot Z79.02 HALF-WAY (CURRENT) USE OF ANTITHROMBOTI 07/05/2019 ROVENSTINE DO, MARVA Sellers Ot Z79.51 [employer] (CURRENT) USE OF INHALED STERO 07/05/2019 ROVENSTINE DO, MARVA Verito Ot Z79.82 [employer] ANALYT[employer] (CURRENT) USE OF ASPIRIN 07/05/2019 ROVENSTINE DO, MARVA Verito Ot Z88.0 ALLERGY STATUS TO PENICILLIN 07/05/2019 ROVENSTINE DO, MARVA Sellers Ot Z88.8 ALLERGY STATUS TO OTH DRUG/MEDS/BIOL SUB 07/05/2019 ROVENSTINE DO, MARVA L Ot Z95.5 PRESENCE OF CORONARY ANGIOPLASTY IMPLANT 07/11/2019 JORDI RODRIGUEZ MD Ot E03 .9 HYPOTHYROIDISM, UNSPECIFIED 07/11/2019 JORDI RODRIGUEZ MD Ot E78.00 PURE HYPERCHOLESTEROLEMIA, UNSPECIFIED 07/11/2019 JORDI RODRIGUEZ MD, Ot E78 .5 HYPERLIPIDEMIA, UNSPECIFIED 07/11/2019 JORDI RODRIGUEZ MD Ot F32 .9 MAJOR DEPRESSIVE DISORDER, SINGLE EPISOD 07/11/2019 JORDI RODRIGUEZ MD Ot F41 .9 ANXIETY DISORDER, UNSPECIFIED 07/11/2019 JORDI RODRIGUEZ MD Ot I11 .0 HYPERTENSIVE HEART DISEASE WITH HEART FA 07/11/2019 JORDI RODRIGUEZ MD, Ot I21 .4 NON-ST ELEVATION (NSTEMI) MYOCARDIAL INF 07/11/2019 JORDI RODRIGUEZ MD, Ot I25.10 ATHSCL HEART DISEASE OF [place] CORONARY 07/11/2019 JORDI RODRIGUEZ MD, Ot I48 .0 PAROXYSMAL ATRIAL FIBRILLATION 07/11/2019 JORDI RODRIGUEZ MD, Ot I48.91 UNSPECIFIED ATRIAL FIBRILLATION 07/11/2019 JORDI RODRIGUEZ MD, Ot I50.30 UNSPECIFIED DIASTOLIC (CONGESTIVE) HEART 07/11/2019 JORDI RODRIGUEZ MD, Ot J06 .9 ACUTE UPPER RESPIRATORY INFECTION, UNSPE 07/11/2019 JORDI RODRIGUEZ MD, Ot K29.80 DUODENITIS WITHOUT BLEEDING 07/11/2019 JORDI RODRIGUEZ MD, Ot N28 .9 DISORDER OF KIDNEY AND URETER, UNSPECIFI 07/11/2019 JORDI RODRIGUEZ MD, Ot R73.03 PREDIABETES 07/11/2019 JORDI RODRIGUEZ MD, Ot R79 .0 ABNORMAL LEVEL OF BLOOD MINERAL 07/11/2019 JORDI RODRIGUEZ MD, Ot Z79.02 HALF-WAY (CURRENT) USE OF ANTITHROMBOTI 07/11/2019 JORDI RODRIGUEZ MD, Ot Z79.82 [employer] (CURRENT) USE OF ASPIRIN 07/11/2019 JORDI RODRIGUEZ MD, Ot Z79.899 OTHER HALF-WAY (CURRENT) DRUG THERAPY 07/11/2019 JORDI RODRIGUEZ MD, Ot Z82 .3 FAMILY HISTORY OF STROKE 07/11/2019 JORDI RODRIGUEZ MD, Ot Z82.49 FAMILY HX OF ISCHEM HEART DIS AND OTH DI 07/11/2019 JORDI RODRIGUEZ MD, Ot Z83 .3 FAMILY HISTORY OF DIABETES MELLITUS 07/11/2019 JORDI RODRIGUEZ MD, Ot Z88 .0 ALLERGY STATUS TO PENICILLIN 07/11/2019 JORDI RODRIGUEZ MD, Ot Z88 .8 ALLERGY STATUS TO OTH DRUG/MEDS/BIOL SUB 07/11/2019 JORDI RODRIGUEZ MD, Ot E03 .9 HYPOTHYROIDISM, UNSPECIFIED 07/11/2019 JORDI RODRIGUEZ MD, Ot E78.00 PURE HYPERCHOLESTEROLEMIA, UNSPECIFIED 07/11/2019 JORDI RODRIGUEZ MD, Ot E78 .5 HYPERLIPIDEMIA, UNSPECIFIED 07/11/2019 JORDI RODRIGUEZ MD, Ot F32 .9 MAJOR DEPRESSIVE DISORDER, SINGLE EPISOD 07/11/2019 JORDI RODRIGUEZ MD, Ot F41 .9 ANXIETY DISORDER, UNSPECIFIED 07/11/2019 JORDI RODRIGUEZ MD, Ot I11 .0 HYPERTENSIVE HEART DISEASE WITH HEART FA 07/11/2019 JORDI RODRIGUEZ MD, Ot I21 .4 NON-ST ELEVATION (NSTEMI) MYOCARDIAL INF 07/11/2019 JORDI RODRIGUEZ MD, Ot I25.10 ATHSCL HEART DISEASE OF [place] CORONARY 07/11/2019 JORDI RODRIGUEZ MD, Ot I48 .0 PAROXYSMAL ATRIAL FIBRILLATION 07/11/2019 JORDI RODRIGUEZ MD, Ot I50.30 UNSPECIFIED DIASTOLIC (CONGESTIVE) HEART 07/11/2019 JORDI RODRIGUEZ MD, Ot J06 .9 ACUTE UPPER RESPIRATORY INFECTION, UNSPE 07/11/2019 JORDI RODRIGUEZ MD, Ot K29.80 DUODENITIS WITHOUT BLEEDING 07/11/2019 JORDI RODRIGUEZ MD, Ot N28 .9 DISORDER OF KIDNEY AND URETER, UNSPECIFI 07/11/2019 JORDI RODRIGUEZ MD, Ot R73.03 PREDIABETES 07/11/2019 JORDI RODRIGUEZ MD, Ot R79 .0 ABNORMAL LEVEL OF BLOOD MINERAL 07/11/2019 JORDI RODRIGUEZ MD, Ot Z79.02 [employer] (CURRENT) USE OF ANTITHROMBOTI 07/11/2019 JORID RODRIGUEZ MD, Ot Z79.82 HALF-WAY (CURRENT) USE OF ASPIRIN 07/11/2019 JORDI RODRIGUEZ MD, Ot Z79.899 OTHER HALF-WAY (CURRENT) DRUG THERAPY 07/11/2019 JORDI RODRIGUEZ MD, Ot Z82 .3 FAMILY HISTORY OF STROKE 07/11/2019 JORDI RODRIGUEZ MD, Ot Z82.49 FAMILY HX OF ISCHEM HEART DIS AND OTH DI 07/11/2019 JORDI RODRIGUEZ MD, Ot Z83 .3 FAMILY HISTORY OF DIABETES MELLITUS 07/11/2019 JORDI RODRIGUEZ MD, Ot Z88 .0 ALLERGY STATUS TO PENICILLIN 07/11/2019 JORDI RODRIGUEZ MD, Ot Z88 .8 ALLERGY STATUS TO OTH DRUG/MEDS/BIOL SUB 07/11/2019 JORDI RODRIGUEZ MD, Ot E03 .9 HYPOTHYROIDISM, UNSPECIFIED 07/11/2019 JORDI RODRIGUEZ MD, Ot E78.00 PURE HYPERCHOLESTEROLEMIA, UNSPECIFIED 07/11/2019 JORDI RODRIGUEZ MD, Ot E78 .5 HYPERLIPIDEMIA, UNSPECIFIED 07/11/2019 JORDI RODRIGUEZ MD, Ot F32 .9 MAJOR DEPRESSIVE DISORDER, SINGLE EPISOD 07/11/2019 JORDI RODRIGUEZ MD, Ot F41 .9 ANXIETY DISORDER, UNSPECIFIED 07/11/2019 JORDI RODRIGUEZ MD, Ot I11 .0 HYPERTENSIVE HEART DISEASE WITH HEART FA 07/11/2019 JORDI RODRIGUEZ MD, Ot I21 .4 NON-ST ELEVATION (NSTEMI) MYOCARDIAL INF 07/11/2019 JORDI RODRIGUEZ MD, Ot I25.10 ATHSCL HEART DISEASE OF [place] CORONARY 07/11/2019 JORDI RODRIGUEZ MD, Ot I48 .0 PAROXYSMAL ATRIAL FIBRILLATION 07/11/2019 JORDI RODRIGUEZ MD, Ot I50.30 UNSPECIFIED DIASTOLIC (CONGESTIVE) HEART 07/11/2019 JORDI RODRIGUEZ MD, Ot J06 .9 ACUTE UPPER RESPIRATORY INFECTION, UNSPE 07/11/2019 JORDI RODRIGUEZ MD, Ot K29.80 DUODENITIS WITHOUT BLEEDING 07/11/2019 JORDI RODRIGUEZ MD, Ot N28 .9 DISORDER OF KIDNEY AND URETER, UNSPECIFI 07/11/2019 JORDI RODRIGUEZ MD, Ot R73.03 PREDIABETES 07/11/2019 JORDI RODRIGUEZ MD, Ot R79 .0 ABNORMAL LEVEL OF BLOOD MINERAL 07/11/2019 JORDI RODRIGUEZ MD, Ot Z79.02 HALF-WAY (CURRENT) USE OF ANTITHROMBOTI 07/11/2019 JORDI RODRIGUEZ MD, Ot Z79.82 [employer] (CURRENT) USE OF ASPIRIN 07/11/2019 JORDI RODRIGUEZ MD, Ot Z79.899 OTHER HALF-WAY (CURRENT) DRUG THERAPY 07/11/2019 JORDI RODRIGUEZ MD, Ot Z82 .3 FAMILY HISTORY OF STROKE 07/11/2019 JORDI RODRIGUEZ MD, Ot Z82.49 FAMILY HX OF ISCHEM HEART DIS AND OTH DI 07/11/2019 JORDI RODRIGUEZ MD, Ot Z83 .3 FAMILY HISTORY OF DIABETES MELLITUS 07/11/2019 JORDI RODRIGUEZ MD, Ot Z88 .0 ALLERGY STATUS TO PENICILLIN 07/11/2019 JORDI RODRIGUEZ MD, Ot Z88 .8 ALLERGY STATUS TO OTH DRUG/MEDS/BIOL SUB 07/11/2019 JORDI RODRIGUEZ MD, Ot E03 .9 HYPOTHYROIDISM, UNSPECIFIED 07/11/2019 JORDI RODRIGUEZ MD, Ot E78.00 PURE HYPERCHOLESTEROLEMIA, UNSPECIFIED 07/11/2019 JORDI RODRIGUEZ MD, Ot E78 .5 HYPERLIPIDEMIA, UNSPECIFIED 07/11/2019 JORDI RODRIGUEZ MD, Ot F32 .9 MAJOR DEPRESSIVE DISORDER, SINGLE EPISOD 07/11/2019 JORDI RODRIGUEZ MD, Ot F41 .9 ANXIETY DISORDER, UNSPECIFIED 07/11/2019 JORDI RODRIGUEZ MD, Ot I11 .0 HYPERTENSIVE HEART DISEASE WITH HEART FA 07/11/2019 JORDI RODRIGUEZ MD, Ot I21 .4 NON-ST ELEVATION (NSTEMI) MYOCARDIAL INF 07/11/2019 JORDI RODRIGUEZ MD, Ot I25.10 ATHSCL HEART DISEASE OF [place] CORONARY 07/11/2019 JORDI RODRIGUEZ MD, Ot I48 .0 PAROXYSMAL ATRIAL FIBRILLATION 07/11/2019 JORDI RODRIGUEZ MD, Ot I50.30 UNSPECIFIED DIASTOLIC (CONGESTIVE) HEART 07/11/2019 JORDI RODRIGUEZ MD, Ot J06 .9 ACUTE UPPER RESPIRATORY INFECTION, UNSPE 07/11/2019 JORDI RODRIGUEZ MD Ot K29.80 DUODENITIS WITHOUT BLEEDING 07/11/2019 JORDI RODRIGUEZ MD, Ot N28 .9 DISORDER OF KIDNEY AND URETER, UNSPECIFI 07/11/2019 JORDI RODRIGUEZ MD, Ot R73.03 PREDIABETES 07/11/2019 JORDI RODRIGUEZ MD, Ot R79 .0 ABNORMAL LEVEL OF BLOOD MINERAL 07/11/2019 JORDI RODRIGUEZ MD, Ot Z79.02 [employer] (CURRENT) USE OF ANTITHROMBOTI 07/11/2019 JORDI RODRIGUEZ MD, Ot Z79.82 HALF-WAY (CURRENT) USE OF ASPIRIN 07/11/2019 JORDI RODRIGUEZ MD, Ot Z79.899 OTHER [employer] (CURRENT) DRUG THERAPY 07/11/2019 JORDI RODRIGUEZ MD, Ot Z82 .3 FAMILY HISTORY OF STROKE 07/11/2019 JORDI RODRIGUEZ MD, Ot Z82.49 FAMILY HX OF ISCHEM HEART DIS AND OTH DI 07/11/2019 JORDI RODRIGUEZ MD, Ot Z83 .3 FAMILY HISTORY OF DIABETES MELLITUS 07/11/2019 JORDI RODRIGUEZ MD, Ot Z88 .0 ALLERGY STATUS TO PENICILLIN 07/11/2019 JORDI RODRIGUEZ MD, Ot Z88 .8 ALLERGY STATUS TO OTH DRUG/MEDS/BIOL SUB 07/14/2019 ELO THORNE ALICIA Ot E03.9 HYPOTHYROIDISM, UNSPECIFIED 07/14/2019 ELO THORNE ALICIA Ot E66.9 OBESITY, UNSPECIFIED 07/14/2019 ELO DO ALICIA Ot E78.5 HYPERLIPIDEMIA, UNSPECIFIED 07/14/2019 ELO DO ALICIA Ot E87.1 HYPO-OSMOLALITY AND HYPONATREMIA 07/14/2019 ELO THORNE ALICIA Ot F32.9 MAJOR DEPRESSIVE DISORDER, SINGLE EPISOD 07/14/2019 ELO DO ALICIA Ot F41.9 ANXIETY DISORDER, UNSPECIFIED 07/14/2019 ELO DO, ALICIA Ot I12.9 HYPERTENSIVE CHRONIC KIDNEY DISEASE W ST 07/14/2019 ELO DO ALICIA Ot I21.4 NON-ST ELEVATION (NSTEMI) MYOCARDIAL INF 07/14/2019 ELO THORNE ALICIA Ot I25.11 9 ATHSCL HEART DISEASE OF [place] COR ART W 07/14/2019 ELO THORNE ALICIA Ot I48.19 OTHER PERSISTENT ATRIAL FIBRILLATION 07/14/2019 ELO THORNE ALICIA Ot K29.80 DUODENITIS WITHOUT BLEEDING 07/14/2019 ELO THORNE ALICIA Ot N18.3 CHRONIC KIDNEY DISEASE, STAGE 3 (MODERAT 07/14/2019 ELO THORNE ALICIA Ot N28.9 DISORDER OF KIDNEY AND URETER, UNSPECIFI 07/14/2019 ELO DO ALICIA Ot R13.10 DYSPHAGIA, UNSPECIFIED 07/14/2019 ELO DO, ALICIA Ot R60.0 LOCALIZED EDEMA 07/14/2019 ELO DO ALICIA Ot R73.03 PREDIABETES 07/14/2019 ELO THORNE ALICIA Ot Z68.38 BODY MASS INDEX (BMI) 38.0-38.9, ADULT 07/14/2019 GASCA DO, ALICIA Ot Z79.01 [employer] (CURRENT) USE OF ANTICOAGULANT 07/14/2019 GASCA DO, ALICIA Ot Z95.5 PRESENCE OF CORONARY ANGIOPLASTY IMPLANT 07/15/2019 GASCA DO, ALICIA Ot E03.9 HYPOTHYROIDISM, UNSPECIFIED 07/15/2019 GASCA DO, ALICIA Ot E66.9 OBESITY, UNSPECIFIED 07/15/2019 GASCA DO, ALICIA Ot E78.5 HYPERLIPIDEMIA, UNSPECIFIED 07/15/2019 GASCA DO, ALICIA Ot E87.1 HYPO-OSMOLALITY AND HYPONATREMIA 07/15/2019 GASCA DO, ALICIA Ot F32.9 MAJOR DEPRESSIVE DISORDER, SINGLE EPISOD 07/15/2019 GASCA DO, ALICIA Ot F41.9 ANXIETY DISORDER, UNSPECIFIED 07/15/2019 GASCA DO, ALICIA Ot I12.9 HYPERTENSIVE CHRONIC KIDNEY DISEASE W ST 07/15/2019 GASCA DO, ALICIA Ot I21.4 NON-ST ELEVATION (NSTEMI) MYOCARDIAL INF 07/15/2019 GASCA DO, ALICIA Ot I25.11 9 ATHSCL HEART DISEASE OF [place] [facility] ART W 07/15/2019 GASCA DO, ALICIA Ot I48.19 OTHER PERSISTENT ATRIAL FIBRILLATION 07/15/2019 GASCA DO, ALICIA Ot K29.80 DUODENITIS WITHOUT BLEEDING 07/15/2019 GASCA DO, ALICIA Ot N18.3 CHRONIC KIDNEY DISEASE, STAGE 3 (MODERAT 07/15/2019 GASCA DO, ALICIA Ot N28.9 DISORDER OF KIDNEY AND URETER, UNSPECIFI 07/15/2019 GASCA DO, ALICIA Ot R13.10 DYSPHAGIA, UNSPECIFIED 07/15/2019 GASCA DO, ALICIA Ot R60.0 LOCALIZED EDEMA 07/15/2019 GASCA DO, ALICIA Ot R73.03 PREDIABETES 07/15/2019 GASCA DO, ALICIA Ot Z68.38 BODY MASS INDEX (BMI) 38.0-38.9, ADULT 07/15/2019 GASCA DO, ALICIA Ot Z79.01 HALF-WAY (CURRENT) USE OF ANTICOAGULANT 07/15/2019 GASCA DO, ALICIA Ot Z95.5 PRESENCE OF CORONARY ANGIOPLASTY IMPLANT 07/15/2019 GASCA DO, ALICIA Ot E03.9 HYPOTHYROIDISM, UNSPECIFIED 07/15/2019 GASCA DO, ALICIA Ot E66.9 OBESITY, UNSPECIFIED 07/15/2019 GASCA DO, ALICIA Ot E78.5 HYPERLIPIDEMIA, UNSPECIFIED 07/15/2019 GASCA DO, ALICIA Ot E87.1 HYPO-OSMOLALITY AND HYPONATREMIA 07/15/2019 GASCA DO, ALICIA Ot F32.9 MAJOR DEPRESSIVE DISORDER, SINGLE EPISOD 07/15/2019 GASCA DO, ALICIA Ot F41.9 ANXIETY DISORDER, UNSPECIFIED 07/15/2019 GASCA DO, ALICIA Ot I12.9 HYPERTENSIVE CHRONIC KIDNEY DISEASE W ST 07/15/2019 GASCA DO, ALICIA Ot I21.4 NON-ST ELEVATION (NSTEMI) MYOCARDIAL INF 07/15/2019 GASCA DO, ALICIA Ot I25.11 9 ATHSCL HEART DISEASE OF [place] COR ART W 07/15/2019 GASCA DO, ALICIA Ot I48.19 OTHER PERSISTENT ATRIAL FIBRILLATION 07/15/2019 GASCA DO, ALICIA Ot K29.80 DUODENITIS WITHOUT BLEEDING 07/15/2019 GASCA DO, ALICIA Ot N18.3 CHRONIC KIDNEY DISEASE, STAGE 3 (MODERAT 07/15/2019 GASCA DO, ALICIA Ot N28.9 DISORDER OF KIDNEY AND URETER, UNSPECIFI 07/15/2019 GASCA DO, ALICIA Ot R13.10 DYSPHAGIA, UNSPECIFIED 07/15/2019 GASCA DO, ALICIA Ot R60.0 LOCALIZED EDEMA 07/15/2019 GASCA DO, ALICIA Ot R73.03 PREDIABETES 07/15/2019 GASCA DO, ALICIA Ot Z68.38 BODY MASS INDEX (BMI) 38.0-38.9, ADULT 07/15/2019 GASCA DO, ALICIA Ot Z79.01 HALF-WAY (CURRENT) USE OF ANTICOAGULANT 07/15/2019 GASCA DO, ALICIA Ot Z95.5 PRESENCE OF CORONARY ANGIOPLASTY IMPLANT 07/15/2019 GASCA DO, ALICIA Ot E03.9 HYPOTHYROIDISM, UNSPECIFIED 07/15/2019 GASCA DO, ALICIA Ot E66.9 OBESITY, UNSPECIFIED 07/15/2019 GASCA DO, ALICIA Ot E78.5 HYPERLIPIDEMIA, UNSPECIFIED 07/15/2019 GASCA DO, ALICIA Ot E87.1 HYPO-OSMOLALITY AND HYPONATREMIA 07/15/2019 GASCA DO, ALICIA Ot F32.9 MAJOR DEPRESSIVE DISORDER, SINGLE EPISOD 07/15/2019 GASCA DO, ALICIA Ot F41.9 ANXIETY DISORDER, UNSPECIFIED 07/15/2019 GASCA DO, ALICIA Ot I12.9 HYPERTENSIVE CHRONIC KIDNEY DISEASE W ST 07/15/2019 GASCA DO, ALICIA Ot I21.4 NON-ST ELEVATION (NSTEMI) MYOCARDIAL INF 07/15/2019 GASCA DO, ALICIA Ot I25.11 9 ATHSCL HEART DISEASE OF [place] COR ART W 07/15/2019 GASCA DO, ALICIA Ot I48.19 OTHER PERSISTENT ATRIAL FIBRILLATION 07/15/2019 GASCA DO, ALICIA Ot K29.80 DUODENITIS WITHOUT BLEEDING 07/15/2019 GASCA DO, ALICIA Ot N18.3 CHRONIC KIDNEY DISEASE, STAGE 3 (MODERAT 07/15/2019 GASCA DO, ALICIA Ot N28.9 DISORDER OF KIDNEY AND URETER, UNSPECIFI 07/15/2019 GASCA DO, ALICIA Ot R13.10 DYSPHAGIA, UNSPECIFIED 07/15/2019 GASCA DO, ALICIA Ot R60.0 LOCALIZED EDEMA 07/15/2019 GASCA DO, ALICIA Ot R73.03 PREDIABETES 07/15/2019 GASCA DO, ALICIA Ot Z68.38 BODY MASS INDEX (BMI) 38.0-38.9, ADULT 07/15/2019 GASCA DO, ALICIA Ot Z79.01 [employer] (CURRENT) USE OF ANTICOAGULANT 07/15/2019 GASCA DO ALICIA Ot Z95.5 PRESENCE OF CORONARY ANGIOPLASTY IMPLANT Procedures Code Description Performed By Per formed On [id number] ME ASURE OF CARDIAC SAMPL PRESSURE, L H 11/15/2018 [id number] [place] UOROSCOPY OF MULT COR ART USING L OSM 11/15/2018 [id number] DI LATION OF 1 COR ART WITH DRUG-ELUT INT 06/29/2019 [id number] DI LATION OF 1 COR ART WITH INTRALUM DEV, 06/29/2019 [id number] ME ASURE OF CARDIAC SAMPL PRESSURE, L H 06/29/2019 [id number] FL UOROSCOPY OF MULT COR ART USING L OSM 06/29/2019 [id number] [place] UOROSCOPY OF LEFT HEART USING LOW OSMO 06/29/2019 Results Test Result Range Complete blood count (CBC) with automate d white blood cell (WBC) differential - 07/21/18 11:07 Blood leukocytes automated count (number/volume) 6.0 10*3/uL 4.3-11.0 Blood erythrocytes automated count (number/volume) 4.42 10*6/uL 4.35-5.85 Venous blood hemoglobin measurement (mass/volume) 13.0 g/dL 11.5-16.0 Blood hematocrit (volume fraction) 39 % 35-52 Automated erythrocyte mean corpuscular volume 89 [ foz_us] 80-99 Automated erythrocyte mean corpuscular h emoglobin (mass per erythrocyte) 29 pg 25-34 Automated erythrocyte mean corpuscular h emoglobin concentration measurement (mass/volume) 33 g/dL 32-36 Automated erythrocyte distribution width ratio 12. 7 % 10.0- 14.5 Automated blood platelet count (count/volume) 273 10*3/uL 130-400 Automated blood platelet mean volume measurement 10.1 [foz_us] 7.4-10.4 Automated blood neutrophils/100 leukocytes 64 % 42-75 Automated blood lymphocytes/100 leukocytes 25 % 12-44 Blood monocytes/100 leukocytes 8 % 0-12 Automated blood eosinophils/100 leukocytes 3 % 0-10 Automated blood basophils/100 leukocytes 1 % 0-10 Blood neutrophils automated count (number/volume) 3.8 10*3 1.8-7.8 Blood lymphocytes automated count (number/volume) 1.5 10*3 1.0-4.0 Blood monocytes automated count (number/volume) 0. 5 10*3 0.0-1.0 Automated eosinophil count 0.2 10*3/uL 0 .0-0.3 Automated blood basophil count (count/volume) 0.1 10*3/uL 0.0-0.1 Comprehensive metabolic panel - 07/21/18 11:07 Serum or plasma sodium measurement (moles/volume) 140 mmol/L 135-145 Serum or plasma potassium measurement (moles/volume) 3.7 mmol/L 3.6-5.0 Serum or plasma chloride measurement (moles/volume) 104 mmol/L 98-107 Carbon dioxide 27 mmol/L 21-32 Serum or plasma anion gap determination (moles/volume) 9 mmol/L 5-14 Serum or plasma urea nitrogen measurement (mass/volume ) 37 mg/dL 7-18 Serum or plasma creatinine measurement (mass/volume) 1.34 mg/dL 0.60-1.30 Serum or plasma urea nitrogen/creatinine mass ratio 28 NRG Serum or plasma creatinine measurement w ith calculation of estimated glomerular filtration rate 38 NRG Serum or plasma glucose measurement (mass/volume) 111 mg/dL 70-105 Serum or plasma calcium measurement (mass/volume) 9.7 mg/dL 8.5-10.1 Serum or plasma total bilirubin measurement (mass/volu me) 0.9 mg/dL 0.1-1.0 Serum or plasma alkaline phosphatase solomon surement (enzymatic activity/volume) 96 U/L 40-136 Serum or plasma aspartate aminotransfera se measurement (enzymatic activity/volume) 23 U/L 5-34 Serum or plasma alanine aminotransferase measurement (enzymatic activity/volume) 18 U/L 0-55 Serum or plasma protein measurement (mass/volume) 7.4 g/dL 6.4-8.2 Serum or plasma albumin measurement (mass/volume) 4.0 g/dL 3.2-4.5 CALCIUM CORRECTED 9.7 mg/dL 8.5-10.1 Serum or plasma troponin i.cardiac measu rement (mass/volume) - 07/21/18 11:07 Serum or plasma troponin i.cardiac measurement (mass/v olume) < ng/mL <0.028 LIPID PANEL - 10/06/18 08:10 CHOLESTEROL, TOTAL 192 mg/dL <200 HDL CHOLESTEROL 57 mg/dL >50 TRIGLYCERIDES 83 mg/dL <150 LDL-CHOLESTEROL 117 mg/dL (calc) NRG CHOL/HDLC RATIO 3.4 (calc) <5.0 NON HDL CHOLESTEROL 135 mg/dL (calc) <13 0 CBC - 10/06/18 08:10 WHITE BLOOD CELL COUNT 6.7 Thousand/uL 3 .8-10.8 RED BLOOD CELL COUNT 4.46 Million/uL 3.8 0-5.10 HEMOGLOBIN 13.4 g/dL 11.7-15.5 HEMATOCRIT 40.2 % 35.0-45.0 MCV 90.1 fL 80.0-100.0 MCH 30.0 pg 27.0-33.0 MCHC 33.3 g/dL 32.0-36.0 RDW 12.5 % 11.0-15.0 PLATELET COUNT 257 Thousand/uL 140-400 MPV 10.4 fL 7.5-12.5 ABSOLUTE NEUTROPHILS 4569 cells/uL 1500- 7800 ABSOLUTE LYMPHOCYTES 1300 cells/uL 850-3 900 ABSOLUTE MONOCYTES 543 cells/uL 200-950 ABSOLUTE EOSINOPHILS 208 cells/uL 15-500 ABSOLUTE BASOPHILS 80 cells/uL 0-200 NEUTROPHILS 68.2 % NRG LYMPHOCYTES 19.4 % NRG MONOCYTES 8.1 % NRG EOSINOPHILS 3.1 % NRG BASOPHILS 1.2 % NRG Complete blood count (CBC) with automate d white blood cell (WBC) differential - 11/14/18 22:02 Blood leukocytes automated count (number/volume) 7.3 10*3/uL 4.3-11.0 Blood erythrocytes automated count (number/volume) 4.49 10*6/uL 4.35-5.85 Venous blood hemoglobin measurement (mass/volume) 13.4 g/dL 11.5-16.0 Blood hematocrit (volume fraction) 40 % 35-52 Automated erythrocyte mean corpuscular volume 88 [ foz_us] 80-99 Automated erythrocyte mean corpuscular h emoglobin (mass per erythrocyte) 30 pg 25-34 Automated erythrocyte mean corpuscular h emoglobin concentration measurement (mass/volume) 34 g/dL 32-36 Automated erythrocyte distribution width ratio 12. 3 % 10.0- 14.5 Automated blood platelet count (count/volume) 277 10*3/uL 130-400 Automated blood platelet mean volume measurement 9.9 [foz_us] 7.4-10.4 Automated blood neutrophils/100 leukocytes 55 % 42-75 Automated blood lymphocytes/100 leukocytes 29 % 12-44 Blood monocytes/100 leukocytes 10 % 0-12 Automated blood eosinophils/100 leukocytes 4 % 0-10 Automated blood basophils/100 leukocytes 1 % 0-10 Blood neutrophils automated count (number/volume) 4.0 10*3 1.8-7.8 Blood lymphocytes automated count (number/volume) 2.1 10*3 1.0-4.0 Blood monocytes automated count (number/volume) 0. 8 10*3 0.0-1.0 Automated eosinophil count 0.3 10*3/uL 0 .0-0.3 Automated blood basophil count (count/volume) 0.1 10*3/uL 0.0-0.1 Comprehensive metabolic panel - 11/14/18 22:02 Serum or plasma sodium measurement (moles/volume) 136 mmol/L 135-145 Serum or plasma potassium measurement (moles/volume) 4.2 mmol/L 3.6-5.0 Serum or plasma chloride measurement (moles/volume) 97 mmol/L 98-107 Carbon dioxide 25 mmol/L 21-32 Serum or plasma anion gap determination (moles/volume) 14 mmol/L 5-14 Serum or plasma urea nitrogen measurement (mass/volume ) 43 mg/dL 7-18 Serum or plasma creatinine measurement (mass/volume) 2.08 mg/dL 0.60-1.30 Serum or plasma urea nitrogen/creatinine mass ratio 21 NRG Serum or plasma creatinine measurement w ith calculation of estimated glomerular filtration rate 23 NRG Serum or plasma glucose measurement (mass/volume) 91 mg/dL 70-105 Serum or plasma calcium measurement (mass/volume) 9.1 mg/dL 8.5-10.1 Serum or plasma total bilirubin measurement (mass/volu me) 0.5 mg/dL 0.1-1.0 Serum or plasma alkaline phosphatase solomon surement (enzymatic activity/volume) 107 U/L 40-136 Serum or plasma aspartate aminotransfera se measurement (enzymatic activity/volume) 21 U/L 5-34 Serum or plasma alanine aminotransferase measurement (enzymatic activity/volume) 18 U/L 0-55 Serum or plasma protein measurement (mass/volume) 7.5 g/dL 6.4-8.2 Serum or plasma albumin measurement (mass/volume) 4.2 g/dL 3.2-4.5 CALCIUM CORRECTED 8.9 mg/dL 8.5-10.1 TROPONIN T - 11/14/18 22:02 TROPONIN T 19 % <=10 Complete blood count (CBC) with automate d white blood cell (WBC) differential - 11/15/18 05:05 Blood leukocytes automated count (number/volume) 6.2 10*3/uL 4.3-11.0 Blood erythrocytes automated count (number/volume) 4.00 10*6/uL 4.35-5.85 Venous blood hemoglobin measurement (mass/volume) 12.0 g/dL 11.5-16.0 Blood hematocrit (volume fraction) 35 % 35-52 Automated erythrocyte mean corpuscular volume 88 [ foz_us] 80-99 Automated erythrocyte mean corpuscular h emoglobin (mass per erythrocyte) 30 pg 25-34 Automated erythrocyte mean corpuscular h emoglobin concentration measurement (mass/volume) 34 g/dL 32-36 Automated erythrocyte distribution width ratio 12. 3 % 10.0- 14.5 Automated blood platelet count (count/volume) 218 10*3/uL 130-400 Automated blood platelet mean volume measurement 10.2 [foz_us] 7.4-10.4 Automated blood neutrophils/100 leukocytes 54 % 42-75 Automated blood lymphocytes/100 leukocytes 30 % 12-44 Blood monocytes/100 leukocytes 10 % 0-12 Automated blood eosinophils/100 leukocytes 5 % 0-10 Automated blood basophils/100 leukocytes 1 % 0-10 Blood neutrophils automated count (number/volume) 3.3 10*3 1.8-7.8 Blood lymphocytes automated count (number/volume) 1.9 10*3 1.0-4.0 Blood monocytes automated count (number/volume) 0. 6 10*3 0.0-1.0 Automated eosinophil count 0.3 10*3/uL 0 .0-0.3 Automated blood basophil count (count/volume) 0.1 10*3/uL 0.0-0.1 Comprehensive metabolic panel - 11/15/18 05:05 Serum or plasma sodium measurement (moles/volume) 137 mmol/L 135-145 Serum or plasma potassium measurement (moles/volume) 3.6 mmol/L 3.6-5.0 Serum or plasma chloride measurement (moles/volume) 103 mmol/L 98-107 Carbon dioxide 25 mmol/L 21-32 Serum or plasma anion gap determination (moles/volume) 9 mmol/L 5-14 Serum or plasma urea nitrogen measurement (mass/volume ) 40 mg/dL 7-18 Serum or plasma creatinine measurement (mass/volume) 1.63 mg/dL 0.60-1.30 Serum or plasma urea nitrogen/creatinine mass ratio 25 NRG Serum or plasma creatinine measurement w ith calculation of estimated glomerular filtration rate 30 NRG Serum or plasma glucose measurement (mass/volume) 128 mg/dL 70-105 Serum or plasma calcium measurement (mass/volume) 8.9 mg/dL 8.5-10.1 Serum or plasma total bilirubin measurement (mass/volu me) 0.5 mg/dL 0.1-1.0 Serum or plasma alkaline phosphatase solomon surement (enzymatic activity/volume) 92 U/L 40-136 Serum or plasma aspartate aminotransfera se measurement (enzymatic activity/volume) 20 U/L 5-34 Serum or plasma alanine aminotransferase measurement (enzymatic activity/volume) 16 U/L 0-55 Serum or plasma protein measurement (mass/volume) 6.3 g/dL 6.4-8.2 Serum or plasma albumin measurement (mass/volume) 3.6 g/dL 3.2-4.5 CALCIUM CORRECTED 9.2 mg/dL 8.5-10.1 Serum or plasma troponin i.cardiac measu rement (mass/volume) - 11/15/18 05:05 Serum or plasma troponin i.cardiac measurement (mass/v olume) < ng/mL <0.028 Lipid 1996 panel - 11/15/18 05:05 Serum or plasma triglyceride measurement (mass/volume) 68 mg/dL <150 Serum or plasma cholesterol measurement (mass/volume) 145 mg/dL < 200 Serum or plasma cholesterol in HDL measurement (mass/v olume) 43 mg/dL 40-60 Cholesterol in LDL [mass/volume] in serum or plasma by direct assay 89 mg/dL 1-129 Serum or plasma cholesterol in VLDL measurement (mass/ volume) 14 mg/dL 5-40 PT panel in platelet poor plasma by coag ulation assay - 11/15/18 13:05 Prothrombin time (PT) in platelet poor plasma by coagu lation assay 18.8 s 12.2-14.7 INR in platelet poor plasma or blood by coagulation as say 1.5 0.8-1.4 Activated partial thromboplastin time (a PTT) in platelet poor plasma bycoagulation assay - 11/15/18 13:05 Activated partial thromboplastin time (a PTT) in platelet poor plasma bycoagulation assay 36 s 24-35 Complete blood count (CBC) with automate d white blood cell (WBC) differential - 11/16/18 05:48 Blood leukocytes automated count (number/volume) 6.5 10*3/uL 4.3-11.0 Blood erythrocytes automated count (number/volume) 3.94 10*6/uL 4.35-5.85 Venous blood hemoglobin measurement (mass/volume) 11.8 g/dL 11.5-16.0 Blood hematocrit (volume fraction) 35 % 35-52 Automated erythrocyte mean corpuscular volume 89 [ foz_us] 80-99 Automated erythrocyte mean corpuscular h emoglobin (mass per erythrocyte) 30 pg 25-34 Automated erythrocyte mean corpuscular h emoglobin concentration measurement (mass/volume) 34 g/dL 32-36 Automated erythrocyte distribution width ratio 12. 5 % 10.0- 14.5 Automated blood platelet count (count/volume) 211 10*3/uL 130-400 Automated blood platelet mean volume measurement 10.1 [chi [facility]_us] 7.4-10.4 Automated blood neutrophils/100 leukocytes 67 % 42-75 Automated blood lymphocytes/100 leukocytes 18 % 12-44 Blood monocytes/100 leukocytes 11 % 0-12 Automated blood eosinophils/100 leukocytes 3 % 0-10 Automated blood basophils/100 leukocytes 1 % 0-10 Blood neutrophils automated count (number/volume) 4.3 10*3 1.8-7.8 Blood lymphocytes automated count (number/volume) 1.2 10*3 1.0-4.0 Blood monocytes automated count (number/volume) 0. 7 10*3 0.0-1.0 Automated eosinophil count 0.2 10*3/uL 0 .0-0.3 Automated blood basophil count (count/volume) 0.0 10*3/uL 0.0-0.1 PT panel in platelet poor plasma by coag ulation assay - 11/16/18 05:48 Prothrombin time (PT) in platelet poor plasma by coagu lation assay 16.3 s 12.2-14.7 INR in platelet poor plasma or blood by coagulation as say 1.3 0.8-1.4 Comprehensive metabolic panel - 11/16/18 05:48 Serum or plasma sodium measurement (moles/volume) 140 mmol/L 135-145 Serum or plasma potassium measurement (moles/volume) 4.2 mmol/L 3.6-5.0 Serum or plasma chloride measurement (moles/volume) 110 mmol/L 98-107 Carbon dioxide 21 mmol/L 21-32 Serum or plasma anion gap determination (moles/volume) 9 mmol/L 5-14 Serum or plasma urea nitrogen measurement (mass/volume ) 32 mg/dL 7-18 Serum or plasma creatinine measurement (mass/volume) 1.29 mg/dL 0.60-1.30 Serum or plasma urea nitrogen/creatinine mass ratio 25 NRG Serum or plasma creatinine measurement w ith calculation of estimated glomerular filtration rate 39 NRG Serum or plasma glucose measurement (mass/volume) 108 mg/dL 70-105 Serum or plasma calcium measurement (mass/volume) 9.1 mg/dL 8.5-10.1 Serum or plasma total bilirubin measurement (mass/volu me) 0.5 mg/dL 0.1-1.0 Serum or plasma alkaline phosphatase solomon surement (enzymatic activity/volume) 88 U/L 40-136 Serum or plasma aspartate aminotransfera se measurement (enzymatic activity/volume) 17 U/L 5-34 Serum or plasma alanine aminotransferase measurement (enzymatic activity/volume) 17 U/L 0-55 Serum or plasma protein measurement (mass/volume) 6.1 g/dL 6.4-8.2 Serum or plasma albumin measurement (mass/volume) 3.4 g/dL 3.2-4.5 CALCIUM CORRECTED 9.6 mg/dL 8.5-10.1 TSH w/ FREE T4 - 12/31/18 08:54 TSH 2.07 mIU/L 0.40-4.50 T4, FREE 1.4 ng/dL 0.8-1.8 CMP - 12/31/18 08:54 GLUCOSE 110 mg/dL 65-99 UREA NITROGEN (BUN) 35 mg/dL 7-25 CREATININE 1.37 mg/dL 0.60-0.88 eGFR NON-AFR. QATARI 35 mL/min/1.73m2 > OR = 60 eGFR 41 mL/min/1.73m2 > OR = 60 BUN/CREATININE RATIO 26 (calc) 6-22 SODIUM 134 mmol/L 135-146 POTASSIUM 4.6 mmol/L 3.5-5.3 CHLORIDE 98 mmol/L 98-110 CARBON DIOXIDE 27 mmol/L 20-32 CALCIUM 9.6 mg/dL 8.6-10.4 PROTEIN, TOTAL 6.9 g/dL 6.1-8.1 ALBUMIN 4.0 g/dL 3.6-5.1 GLOBULIN 2.9 g/dL (calc) 1.9-3.7 ALBUMIN/GLOBULIN RATIO 1.4 (calc) 1.0-2. 5 BILIRUBIN, TOTAL 0.8 mg/dL 0.2-1.2 ALKALINE PHOSPHATASE 93 U/L 33-130 AST 22 U/L 10-35 ALT 14 U/L 6-29 CMP - 05/18/19 07:53 GLUCOSE 118 mg/dL 65-99 UREA NITROGEN (BUN) 42 mg/dL 7-25 CREATININE 1.63 mg/dL 0.60-0.88 eGFR NON-AFR. QATARI 29 mL/min/1.73m2 > OR = 60 eGFR 33 mL/min/1.73m2 > OR = 60 BUN/CREATININE RATIO 26 (calc) 6-22 SODIUM 140 mmol/L 135-146 POTASSIUM 4.0 mmol/L 3.5-5.3 CHLORIDE 104 mmol/L 98-110 CARBON DIOXIDE 28 mmol/L 20-32 CALCIUM 9.4 mg/dL 8.6-10.4 PROTEIN, TOTAL 6.6 g/dL 6.1-8.1 ALBUMIN 3.9 g/dL 3.6-5.1 GLOBULIN 2.7 g/dL (calc) 1.9-3.7 ALBUMIN/GLOBULIN RATIO 1.4 (calc) 1.0-2. 5 BILIRUBIN, TOTAL 0.7 mg/dL 0.2-1.2 ALKALINE PHOSPHATASE 100 U/L 33-130 AST 19 U/L 10-35 ALT 18 U/L 6-29 Complete blood count (CBC) with automate d white blood cell (WBC) differential - 06/10/19 10:14 Blood leukocytes automated count (number/volume) 8.3 10*3/uL 4.3-11.0 Blood erythrocytes automated count (number/volume) 4.71 10*6/uL 4.35-5.85 Venous blood hemoglobin measurement (mass/volume) 14.0 g/dL 11.5-16.0 Blood hematocrit (volume fraction) 42 % 35-52 Automated erythrocyte mean corpuscular volume 90 [ foz_us] 80-99 Automated erythrocyte mean corpuscular h emoglobin (mass per erythrocyte) 30 pg 25-34 Automated erythrocyte mean corpuscular h emoglobin concentration measurement (mass/volume) 33 g/dL 32-36 Automated erythrocyte distribution width ratio 12. 8 % 10.0- 14.5 Automated blood platelet count (count/volume) 285 10*3/uL 130-400 Automated blood platelet mean volume measurement 10.0 [foz_us] 7.4-10.4 Automated blood neutrophils/100 leukocytes 70 % 42-75 Automated blood lymphocytes/100 leukocytes 18 % 12-44 Blood monocytes/100 leukocytes 8 % 0-12 Automated blood eosinophils/100 leukocytes 3 % 0-10 Automated blood basophils/100 leukocytes 1 % 0-10 Blood neutrophils automated count (number/volume) 5.8 10*3 1.8-7.8 Blood lymphocytes automated count (number/volume) 1.5 10*3 1.0-4.0 Blood monocytes automated count (number/volume) 0. 7 10*3 0.0-1.0 Automated eosinophil count 0.3 10*3/uL 0 .0-0.3 Automated blood basophil count (count/volume) 0.1 10*3/uL 0.0-0.1 PT panel in platelet poor plasma by coag ulation assay - 06/10/19 10:14 Prothrombin time (PT) in platelet poor plasma by coagu lation assay 18.5 s 12.2-14.7 INR in platelet poor plasma or blood by coagulation as say 1.5 0.8-1.4 Activated partial thromboplastin time (a PTT) in platelet poor plasma bycoagulation assay - 06/10/19 10:14 Activated partial thromboplastin time (a PTT) in platelet poor plasma bycoagulation assay 34 s 24-35 Comprehensive metabolic panel - 06/10/19 10:14 Serum or plasma sodium measurement (moles/volume) 138 mmol/L 135-145 Serum or plasma potassium measurement (moles/volume) 4.1 mmol/L 3.6-5.0 Serum or plasma chloride measurement (moles/volume) 102 mmol/L 98-107 Carbon dioxide 24 mmol/L 21-32 Serum or plasma anion gap determination (moles/volume) 12 mmol/L 5-14 Serum or plasma urea nitrogen measurement (mass/volume ) 32 mg/dL 7-18 Serum or plasma creatinine measurement (mass/volume) 1.41 mg/dL 0.60-1.30 Serum or plasma urea nitrogen/creatinine mass ratio 23 NRG Serum or plasma creatinine measurement w ith calculation of estimated glomerular filtration rate 36 NRG Serum or plasma glucose measurement (mass/volume) 141 mg/dL 70-105 Serum or plasma calcium measurement (mass/volume) 9.4 mg/dL 8.5-10.1 Serum or plasma total bilirubin measurement (mass/volu me) 0.6 mg/dL 0.1-1.0 Serum or plasma alkaline phosphatase solomon surement (enzymatic activity/volume) 120 U/L 40-136 Serum or plasma aspartate aminotransfera se measurement (enzymatic activity/volume) 18 U/L 5-34 Serum or plasma alanine aminotransferase measurement (enzymatic activity/volume) 8 U/L 0-55 Serum or plasma protein measurement (mass/volume) 7.2 g/dL 6.4-8.2 Serum or plasma albumin measurement (mass/volume) 3.9 g/dL 3.2-4.5 CALCIUM CORRECTED 9.5 mg/dL 8.5-10.1 Magnesium - 06/10/19 10:14 Magnesium 1.9 mg/dL 1.6-2.4 TROPONIN I FS - 06/10/19 10:14 TROPONIN I FS < 0.30 <0.30 PROBNP FS - 06/10/19 10:14 PROBNP FS 7695.0 pg/mL <75.0 Lipase - 06/10/19 10:14 Lipase 28 U/L 8-78 Complete blood count (CBC) with automate d white blood cell (WBC) differential - 06/28/19 14:26 Blood leukocytes automated count (number/volume) 13.7 10*3/uL 4.3-11.0 Blood erythrocytes automated count (number/volume) 4.55 10*6/uL 4.35-5.85 Venous blood hemoglobin measurement (mass/volume) 13.5 g/dL 11.5-16.0 Blood hematocrit (volume fraction) 40 % 35-52 Automated erythrocyte mean corpuscular volume 88 [ foz_us] 80-99 Automated erythrocyte mean corpuscular h emoglobin (mass per erythrocyte) 30 pg 25-34 Automated erythrocyte mean corpuscular h emoglobin concentration measurement (mass/volume) 34 g/dL 32-36 Automated erythrocyte distribution width ratio 13. 0 % 10.0- 14.5 Automated blood platelet count (count/volume) 386 10*3/uL 130-400 Automated blood platelet mean volume measurement 9.3 [foz_us] 7.4-10.4 Automated blood neutrophils/100 leukocytes 73 % 42-75 Automated blood lymphocytes/100 leukocytes 13 % 12-44 Blood monocytes/100 leukocytes 11 % 0-12 Automated blood eosinophils/100 leukocytes 2 % 0-10 Automated blood basophils/100 leukocytes 0 % 0-10 Blood neutrophils automated count (number/volume) 10.0 10*3 1.8-7.8 Blood lymphocytes automated count (number/volume) 1.8 10*3 1.0-4.0 Blood monocytes automated count (number/volume) 1. 5 10*3 0.0-1.0 Automated eosinophil count 0.3 10*3/uL 0 .0-0.3 Automated blood basophil count (count/volume) 0.0 10*3/uL 0.0-0.1 Comprehensive metabolic panel - 06/28/19 14:26 Serum or plasma sodium measurement (moles/volume) 136 mmol/L 135-145 Serum or plasma potassium measurement (moles/volume) 4.0 mmol/L 3.6-5.0 Serum or plasma chloride measurement (moles/volume) 94 mmol/L 98-107 Carbon dioxide 27 mmol/L 21-32 Serum or plasma anion gap determination (moles/volume) 15 mmol/L 5-14 Serum or plasma urea nitrogen measurement (mass/volume ) 33 mg/dL 7-18 Serum or plasma creatinine measurement (mass/volume) 1.48 mg/dL 0.60-1.30 Serum or plasma urea nitrogen/creatinine mass ratio 22 NRG Serum or plasma creatinine measurement w ith calculation of estimated glomerular filtration rate 34 NRG Serum or plasma glucose measurement (mass/volume) 141 mg/dL 70-105 Serum or plasma calcium measurement (mass/volume) 9.3 mg/dL 8.5-10.1 Serum or plasma total bilirubin measurement (mass/volu me) 0.6 mg/dL 0.1-1.0 Serum or plasma alkaline phosphatase solomon surement (enzymatic activity/volume) 122 U/L 40-136 Serum or plasma aspartate aminotransfera se measurement (enzymatic activity/volume) 16 U/L 5-34 Serum or plasma alanine aminotransferase measurement (enzymatic activity/volume) 41 U/L 0-55 Serum or plasma protein measurement (mass/volume) 7.1 g/dL 6.4-8.2 Serum or plasma albumin measurement (mass/volume) 3.9 g/dL 3.2-4.5 CALCIUM CORRECTED 9.4 mg/dL 8.5-10.1 TROPONIN I FS - 06/28/19 14:26 TROPONIN I FS < 0.30 <0.30 PROBNP FS - 06/28/19 14:26 PROBNP FS 6615.0 pg/mL <75.0 PT panel in platelet poor plasma by coag ulation assay - 06/28/19 14:26 Prothrombin time (PT) in platelet poor plasma by coagu lation assay 18.4 s 12.2-14.7 INR in platelet poor plasma or blood by coagulation as say 1.5 0.8-1.4 [id number] - 06/28/19 14:26 [id number] 1.61 ng/mL 0.80-2.00 TROPONIN I FS - 06/28/19 16:25 TROPONIN I FS < 0.30 <0.30 Serum or plasma troponin i.cardiac measu rement (mass/volume) - 06/28/19 22:55 Serum or plasma troponin i.cardiac measurement (mass/v olume) 0.042 ng/mL <0.028 Complete blood count (CBC) with automate d white blood cell (WBC) differential - 06/29/19 04:00 Blood leukocytes automated count (number/volume) 8.9 10*3/uL 4.3-11.0 Blood erythrocytes automated count (number/volume) 4.03 10*6/uL 4.35-5.85 Venous blood hemoglobin measurement (mass/volume) 11.9 g/dL 11.5-16.0 Blood hematocrit (volume fraction) 36 % 35-52 Automated erythrocyte mean corpuscular volume 88 [ foz_us] 80-99 Automated erythrocyte mean corpuscular h emoglobin (mass per erythrocyte) 30 pg 25-34 Automated erythrocyte mean corpuscular h emoglobin concentration measurement (mass/volume) 34 g/dL 32-36 Automated erythrocyte distribution width ratio 13. 3 % 10.0- 14.5 Automated blood platelet count (count/volume) 304 10*3/uL 130-400 Automated blood platelet mean volume measurement 9.4 [foz_us] 7.4-10.4 Automated blood neutrophils/100 leukocytes 76 % 42-75 Automated blood lymphocytes/100 leukocytes 10 % 12-44 Blood monocytes/100 leukocytes 11 % 0-12 Automated blood eosinophils/100 leukocytes 3 % 0-10 Automated blood basophils/100 leukocytes 0 % 0-10 Blood neutrophils automated count (number/volume) 6.7 10*3 1.8-7.8 Blood lymphocytes automated count (number/volume) 0.9 10*3 1.0-4.0 Blood monocytes automated count (number/volume) 1. 0 10*3 0.0-1.0 Automated eosinophil count 0.3 10*3/uL 0 .0-0.3 Automated blood basophil count (count/volume) 0.0 10*3/uL 0.0-0.1 Comprehensive metabolic panel - 06/29/19 04:00 Serum or plasma sodium measurement (moles/volume) 136 mmol/L 135-145 Serum or plasma potassium measurement (moles/volume) 4.3 mmol/L 3.6-5.0 Serum or plasma chloride measurement (moles/volume) 100 mmol/L 98-107 Carbon dioxide 25 mmol/L 21-32 Serum or plasma anion gap determination (moles/volume) 11 mmol/L 5-14 Serum or plasma urea nitrogen measurement (mass/volume ) 34 mg/dL 7-18 Serum or plasma creatinine measurement (mass/volume) 1.56 mg/dL 0.60-1.30 Serum or plasma urea nitrogen/creatinine mass ratio 22 NRG Serum or plasma creatinine measurement w ith calculation of estimated glomerular filtration rate 32 NRG Serum or plasma glucose measurement (mass/volume) 111 mg/dL 70-105 Serum or plasma calcium measurement (mass/volume) 8.6 mg/dL 8.5-10.1 Serum or plasma total bilirubin measurement (mass/volu me) 0.6 mg/dL 0.1-1.0 Serum or plasma alkaline phosphatase solomon surement (enzymatic activity/volume) 97 U/L 40-136 Serum or plasma aspartate aminotransfera se measurement (enzymatic activity/volume) 13 U/L 5-34 Serum or plasma alanine aminotransferase measurement (enzymatic activity/volume) 33 U/L 0-55 Serum or plasma protein measurement (mass/volume) 5.8 g/dL 6.4-8.2 Serum or plasma albumin measurement (mass/volume) 3.3 g/dL 3.2-4.5 CALCIUM CORRECTED 9.2 mg/dL 8.5-10.1 Serum or plasma troponin i.cardiac measu rement (mass/volume) - 06/29/19 04:00 Serum or plasma troponin i.cardiac measurement (mass/v olume) 0.054 ng/mL <0.028 Complete blood count (CBC) with automate d white blood cell (WBC) differential - 06/30/19 04:05 Blood leukocytes automated count (number/volume) 9.4 10*3/uL 4.3-11.0 Blood erythrocytes automated count (number/volume) 3.85 10*6/uL 4.35-5.85 Venous blood hemoglobin measurement (mass/volume) 11.4 g/dL 11.5-16.0 Blood hematocrit (volume fraction) 34 % 35-52 Automated erythrocyte mean corpuscular volume 88 [ foz_us] 80-99 Automated erythrocyte mean corpuscular h emoglobin (mass per erythrocyte) 30 pg 25-34 Automated erythrocyte mean corpuscular h emoglobin concentration measurement (mass/volume) 34 g/dL 32-36 Automated erythrocyte distribution width ratio 12. 8 % 10.0- 14.5 Automated blood platelet count (count/volume) 271 10*3/uL 130-400 Automated blood platelet mean volume measurement 9.3 [foz_us] 7.4-10.4 Automated blood neutrophils/100 leukocytes 79 % 42-75 Automated blood lymphocytes/100 leukocytes 8 % 12-44 Blood monocytes/100 leukocytes 10 % 0-12 Automated blood eosinophils/100 leukocytes 3 % 0-10 Automated blood basophils/100 leukocytes 0 % 0-10 Blood neutrophils automated count (number/volume) 7.4 10*3 1.8-7.8 Blood lymphocytes automated count (number/volume) 0.7 10*3 1.0-4.0 Blood monocytes automated count (number/volume) 0. 9 10*3 0.0-1.0 Automated eosinophil count 0.3 10*3/uL 0 .0-0.3 Automated blood basophil count (count/volume) 0.0 10*3/uL 0.0-0.1 Whole blood basic metabolic panel - 06/08 09/24 04:05 Serum or plasma sodium measurement (moles/volume) 134 mmol/L 135-145 Serum or plasma potassium measurement (moles/volume) 4.0 mmol/L 3.6-5.0 Serum or plasma chloride measurement (moles/volume) 100 mmol/L 98-107 Carbon dioxide 21 mmol/L 21-32 Serum or plasma anion gap determination (moles/volume) 13 mmol/L 5-14 Serum or plasma urea nitrogen measurement (mass/volume ) 31 mg/dL 7-18 Serum or plasma creatinine measurement (mass/volume) 1.41 mg/dL 0.60-1.30 Serum or plasma urea nitrogen/creatinine mass ratio 22 NRG Serum or plasma creatinine measurement w ith calculation of estimated glomerular filtration rate 36 NRG Serum or plasma glucose measurement (mass/volume) 103 mg/dL 70-105 Serum or plasma calcium measurement (mass/volume) 8.4 mg/dL 8.5-10.1 THYROID STIMULATING HORMONE - 06/30/19 0 4:05 THYROID STIMULATING HORMONE 1.62 u[iU]/mL 0.35-4.94 Complete blood count (CBC) with automate d white blood cell (WBC) differential - 07/01/19 19:57 Blood leukocytes automated count (number/volume) 12.7 10*3/uL 4.3-11.0 Blood erythrocytes automated count (number/volume) 4.03 10*6/uL 4.35-5.85 Venous blood hemoglobin measurement (mass/volume) 12.1 g/dL 11.5-16.0 Blood hematocrit (volume fraction) 35 % 35-52 Automated erythrocyte mean corpuscular volume 87 [ foz_us] 80-99 Automated erythrocyte mean corpuscular h emoglobin (mass per erythrocyte) 30 pg 25-34 Automated erythrocyte mean corpuscular h emoglobin concentration measurement (mass/volume) 35 g/dL 32-36 Automated erythrocyte distribution width ratio 13. 1 % 10.0- 14.5 Automated blood platelet count (count/volume) 252 10*3/uL 130-400 Automated blood platelet mean volume measurement 9.5 [foz_us] 7.4-10.4 Automated blood neutrophils/100 leukocytes 81 % 42-75 Automated blood lymphocytes/100 leukocytes 7 % 12-44 Blood monocytes/100 leukocytes 8 % 0-12 Automated blood eosinophils/100 leukocytes 2 % 0-10 Automated blood basophils/100 leukocytes 0 % 0-10 Blood neutrophils automated count (number/volume) 10.3 10*3 1.8-7.8 Blood lymphocytes automated count (number/volume) 0.9 10*3 1.0-4.0 Blood monocytes automated count (number/volume) 1. 1 10*3 0.0-1.0 Automated eosinophil count 0.3 10*3/uL 0 .0-0.3 Automated blood basophil count (count/volume) 0.0 10*3/uL 0.0-0.1 Manual absolute plasma cell count - 06/08 10/24 19:57 Blood monocytes/100 leukocytes 7 % NR Manual blood segmented neutrophils/100 leukocytes 79 % NR Manual blood lymphocytes/100 leukocytes 9 % NR Manual eosinophils/100 leukocytes in nose 3 % NR Manual blood basophils/100 leukocytes 2 % NR Blood platelet adequacy detection by light microscopy ADEQUATE NR Comprehensive metabolic panel - 07/01/19 19:57 Serum or plasma sodium measurement (moles/volume) 133 mmol/L 135-145 Serum or plasma potassium measurement (moles/volume) 3.8 mmol/L 3.6-5.0 Serum or plasma chloride measurement (moles/volume) 95 mmol/L 98-107 Carbon dioxide 22 mmol/L 21-32 Serum or plasma anion gap determination (moles/volume) 16 mmol/L 5-14 Serum or plasma urea nitrogen measurement (mass/volume ) 29 mg/dL 7-18 Serum or plasma creatinine measurement (mass/volume) 1.51 mg/dL 0.60-1.30 Serum or plasma urea nitrogen/creatinine mass ratio 19 NRG Serum or plasma creatinine measurement w ith calculation of estimated glomerular filtration rate 33 NRG Serum or plasma glucose measurement (mass/volume) 131 mg/dL 70-105 Serum or plasma calcium measurement (mass/volume) 8.7 mg/dL 8.5-10.1 Serum or plasma total bilirubin measurement (mass/volu me) 0.6 mg/dL 0.1-1.0 Serum or plasma alkaline phosphatase solomon surement (enzymatic activity/volume) 93 U/L 40-136 Serum or plasma aspartate aminotransfera se measurement (enzymatic activity/volume) 15 U/L 5-34 Serum or plasma alanine aminotransferase measurement (enzymatic activity/volume) 24 U/L 0-55 Serum or plasma protein measurement (mass/volume) 6.2 g/dL 6.4-8.2 Serum or plasma albumin measurement (mass/volume) 3.2 g/dL 3.2-4.5 CALCIUM CORRECTED 9.3 mg/dL 8.5-10.1 TROPONIN I FS - 07/01/19 19:57 TROPONIN I FS < 0.30 <0.30 PROBNP FS - 07/01/19 19:57 PROBNP FS 4939.0 pg/mL <75.0 Complete blood count (CBC) with automate d white blood cell (WBC) differential - 07/03/19 12:04 Blood leukocytes automated count (number/volume) 10.2 10*3/uL 4.3-11.0 Blood erythrocytes automated count (number/volume) 4.05 10*6/uL 4.35-5.85 Venous blood hemoglobin measurement (mass/volume) 12.3 g/dL 11.5-16.0 Blood hematocrit (volume fraction) 36 % 35-52 Automated erythrocyte mean corpuscular volume 88 [ foz_us] 80-99 Automated erythrocyte mean corpuscular h emoglobin (mass per erythrocyte) 30 pg 25-34 Automated erythrocyte mean corpuscular h emoglobin concentration measurement (mass/volume) 34 g/dL 32-36 Automated erythrocyte distribution width ratio 13. 9 % 10.0- 14.5 Automated blood platelet count (count/volume) 277 10*3/uL 130-400 Automated blood platelet mean volume measurement 9.4 [foz_us] 7.4-10.4 Automated blood neutrophils/100 leukocytes 81 % 42-75 Automated blood lymphocytes/100 leukocytes 6 % 12-44 Blood monocytes/100 leukocytes 10 % 0-12 Automated blood eosinophils/100 leukocytes 3 % 0-10 Automated blood basophils/100 leukocytes 0 % 0-10 Blood neutrophils automated count (number/volume) 8.3 10*3 1.8-7.8 Blood lymphocytes automated count (number/volume) 0.6 10*3 1.0-4.0 Blood monocytes automated count (number/volume) 1. 0 10*3 0.0-1.0 Automated eosinophil count 0.3 10*3/uL 0 .0-0.3 Automated blood basophil count (count/volume) 0.0 10*3/uL 0.0-0.1 PT panel in platelet poor plasma by coag ulation assay - 07/03/19 12:04 Prothrombin time (PT) in platelet poor plasma by coagu lation assay 22.9 s 12.2-14.7 INR in platelet poor plasma or blood by coagulation as say 1.9 0.8-1.4 Manual absolute plasma cell count - 06/08 12/24 12:04 Blood monocytes/100 leukocytes 3 % NRG Manual blood segmented neutrophils/100 leukocytes 89 % NRG Blood band neutrophils/100 leukocytes 0 % NRG Manual blood lymphocytes/100 leukocytes 6 % NRG Manual eosinophils/100 leukocytes in nose 2 % NRG Manual blood basophils/100 leukocytes 0 % NRG Blood erythrocyte morphology finding identification NORMAL NRG Magnesium - 07/03/19 12:04 Magnesium 2.0 mg/dL 1.6-2.4 Comprehensive metabolic panel - 07/03/19 12:04 Serum or plasma sodium measurement (moles/volume) 134 mmol/L 135-145 Serum or plasma potassium measurement (moles/volume) 4.4 mmol/L 3.6-5.0 Serum or plasma chloride measurement (moles/volume) 95 mmol/L 98-107 Carbon dioxide 23 mmol/L 21-32 Serum or plasma anion gap determination (moles/volume) 16 mmol/L 5-14 Serum or plasma urea nitrogen measurement (mass/volume ) 25 mg/dL 7-18 Serum or plasma creatinine measurement (mass/volume) 1.54 mg/dL 0.60-1.30 Serum or plasma urea nitrogen/creatinine mass ratio 16 NRG Serum or plasma creatinine measurement w ith calculation of estimated glomerular filtration rate 32 NRG Serum or plasma glucose measurement (mass/volume) 128 mg/dL 70-105 Serum or plasma calcium measurement (mass/volume) 9.0 mg/dL 8.5-10.1 Serum or plasma total bilirubin measurement (mass/volu me) 0.8 mg/dL 0.1-1.0 Serum or plasma alkaline phosphatase solomon surement (enzymatic activity/volume) 99 U/L 40-136 Serum or plasma aspartate aminotransfera se measurement (enzymatic activity/volume) 25 U/L 5-34 Serum or plasma alanine aminotransferase measurement (enzymatic activity/volume) 27 U/L 0-55 Serum or plasma protein measurement (mass/volume) 6.8 g/dL 6.4-8.2 Serum or plasma albumin measurement (mass/volume) 3.4 g/dL 3.2-4.5 CALCIUM CORRECTED 9.5 mg/dL 8.5-10.1 TROPONIN I FS - 07/03/19 12:04 TROPONIN I FS < 0.30 <0.30 PROBNP FS - 07/03/19 12:04 PROBNP FS 7575.0 pg/mL <75.0 [id number] - 07/03/19 12:04 [id number] 2.70 ng/mL 0.80-2.00 Complete blood count (CBC) with automate d white blood cell (WBC) differential - 07/05/19 10:50 Blood leukocytes automated count (number/volume) 10.2 10*3/uL 4.3-11.0 Blood erythrocytes automated count (number/volume) 4.07 10*6/uL 4.35-5.85 Venous blood hemoglobin measurement (mass/volume) 12.1 g/dL 11.5-16.0 Blood hematocrit (volume fraction) 36 % 35-52 Automated erythrocyte mean corpuscular volume 88 [ foz_us] 80-99 Automated erythrocyte mean corpuscular h emoglobin (mass per erythrocyte) 30 pg 25-34 Automated erythrocyte mean corpuscular h emoglobin concentration measurement (mass/volume) 34 g/dL 32-36 Automated erythrocyte distribution width ratio 13. 6 % 10.0- 14.5 Automated blood platelet count (count/volume) 280 10*3/uL 130-400 Automated blood platelet mean volume measurement 9.5 [foz_us] 7.4-10.4 Automated blood neutrophils/100 leukocytes 82 % 42-75 Automated blood lymphocytes/100 leukocytes 6 % 12-44 Blood monocytes/100 leukocytes 8 % 0-12 Automated blood eosinophils/100 leukocytes 3 % 0-10 Automated blood basophils/100 leukocytes 1 % 0-10 Blood neutrophils automated count (number/volume) 8.4 10*3 1.8-7.8 Blood lymphocytes automated count (number/volume) 0.6 10*3 1.0-4.0 Blood monocytes automated count (number/volume) 0. 8 10*3 0.0-1.0 Automated eosinophil count 0.3 10*3/uL 0 .0-0.3 Automated blood basophil count (count/volume) 0.1 10*3/uL 0.0-0.1 PT panel in platelet poor plasma by coag ulation assay - 07/05/19 10:50 Prothrombin time (PT) in platelet poor plasma by coagu lation assay 23.8 s 12.2-14.7 INR in platelet poor plasma or blood by coagulation as say 2.0 0.8-1.4 Activated partial thromboplastin time (a PTT) in platelet poor plasma bycoagulation assay - 07/05/19 10:50 Activated partial thromboplastin time (a PTT) in platelet poor plasma bycoagulation assay 33 s 24-35 Fibrin D-dimer FEU measurement in platel et poor plasma (mass/volume) - 07/05/19 10:50 Fibrin D-dimer FEU measurement in platelet poor plasma (mass/volume) 0.44 ug/mL 0.00-0.49 Comprehensive metabolic panel - 07/05/19 10:50 Serum or plasma sodium measurement (moles/volume) 138 mmol/L 135-145 Serum or plasma potassium measurement (moles/volume) 4.1 mmol/L 3.6-5.0 Serum or plasma chloride measurement (moles/volume) 99 mmol/L 98-107 Carbon dioxide 26 mmol/L 21-32 Serum or plasma anion gap determination (moles/volume) 13 mmol/L 5-14 Serum or plasma urea nitrogen measurement (mass/volume ) 29 mg/dL 7-18 Serum or plasma creatinine measurement (mass/volume) 1.80 mg/dL 0.60-1.30 Serum or plasma urea nitrogen/creatinine mass ratio 16 NRG Serum or plasma creatinine measurement w ith calculation of estimated glomerular filtration rate 27 NRG Serum or plasma glucose measurement (mass/volume) 136 mg/dL 70-105 Serum or plasma calcium measurement (mass/volume) 9.1 mg/dL 8.5-10.1 Serum or plasma total bilirubin measurement (mass/volu me) 0.7 mg/dL 0.1-1.0 Serum or plasma alkaline phosphatase solomon surement (enzymatic activity/volume) 117 U/L 40-136 Serum or plasma aspartate aminotransfera se measurement (enzymatic activity/volume) 27 U/L 5-34 Serum or plasma alanine aminotransferase measurement (enzymatic activity/volume) 37 U/L 0-55 Serum or plasma protein measurement (mass/volume) 6.7 g/dL 6.4-8.2 Serum or plasma albumin measurement (mass/volume) 3.6 g/dL 3.2-4.5 CALCIUM CORRECTED 9.4 mg/dL 8.5-10.1 Magnesium - 07/05/19 10:50 Magnesium 2.3 mg/dL 1.6-2.4 TROPONIN I FS - 07/05/19 10:50 TROPONIN I FS < 0.30 <0.30 PROBNP FS - 07/05/19 10:50 PROBNP FS 8717.0 pg/mL <75.0 Lipase - 07/05/19 10:50 Lipase 41 U/L 8-78 Manual absolute plasma cell count - 06/08 02/24 10:50 Blood monocytes/100 leukocytes 8 % NRG Manual blood segmented neutrophils/100 leukocytes 78 % NRG Blood band neutrophils/100 leukocytes 2 % NRG Manual blood lymphocytes/100 leukocytes 10 % NRG Manual eosinophils/100 leukocytes in nose 2 % NRG Manual blood basophils/100 leukocytes 0 % NRG Blood erythrocyte morphology finding identification NORMAL NRG [id number] - 07/05/19 10:50 [id number] 1.87 ng/mL 0.80-2.00 Complete urinalysis with reflex to cultu re - 07/05/19 12:35 Urine color determination YELLOW NRG Urine clarity determination CLEAR NR G Urine pH measurement by test strip 7.0 5-9 Specific gravity of urine by test strip 1.015 1.016-1.022 Urine protein assay by test strip, semi-quantitative NEGATIVE NEGATIVE Urine glucose detection by automated test strip NE GATIVE NEGATIVE Erythrocytes detection in urine sediment by light micr oscopy TRACE NEGATIVE Urine ketones detection by automated test strip NE GATIVE NEGATIVE Urine nitrite detection by test strip NEGATIVE NEGATIVE Urine total bilirubin detection by test strip NEGA TIVE NEGATIVE Urine urobilinogen measurement by automated test strip (mass/volume) 0.2 mg/dL < = 1.0 Urine leukocyte esterase detection by dipstick TRA CE NEGATIVE Automated urine sediment erythrocyte cou nt by microscopy (number/high power field) RARE NRG Automated urine sediment leukocyte count by microscopy (number/high power field) [HPF] NRG Bacteria detection in urine sediment by light microsco py FEW NRG Squamous epithelial cells detection in u rine sediment by light microscopy 5-10 NRG Crystals detection in urine sediment by light microsco py NONE NRG Casts detection in urine sediment by light microscopy NONE NRG Mucus detection in urine sediment by light microscopy NEGATIVE NRG Complete urinalysis with reflex to culture NO NRG Complete blood count (CBC) with automate d white blood cell (WBC) differential - 07/06/19 05:25 Blood leukocytes automated count (number/volume) 10.7 10*3/uL 4.3-11.0 Blood erythrocytes automated count (number/volume) 3.51 10*6/uL 4.35-5.85 Venous blood hemoglobin measurement (mass/volume) 10.4 g/dL 11.5-16.0 Blood hematocrit (volume fraction) 32 % 35-52 Automated erythrocyte mean corpuscular volume 91 [ foz_us] 80-99 Automated erythrocyte mean corpuscular h emoglobin (mass per erythrocyte) 30 pg 25-34 Automated erythrocyte mean corpuscular h emoglobin concentration measurement (mass/volume) 33 g/dL 32-36 Automated erythrocyte distribution width ratio 14. 3 % 10.0- 14.5 Automated blood platelet count (count/volume) 254 10*3/uL 130-400 Automated blood platelet mean volume measurement 9.9 [foz_us] 7.4-10.4 Automated blood neutrophils/100 leukocytes 79 % 42-75 Automated blood lymphocytes/100 leukocytes 5 % 12-44 Blood monocytes/100 leukocytes 10 % 0-12 Automated blood eosinophils/100 leukocytes 4 % 0-10 Automated blood basophils/100 leukocytes 1 % 0-10 Blood neutrophils automated count (number/volume) 8.5 10*3 1.8-7.8 Blood lymphocytes automated count (number/volume) 0.6 10*3 1.0-4.0 Blood monocytes automated count (number/volume) 1. 1 10*3 0.0-1.0 Automated eosinophil count 0.5 10*3/uL 0 .0-0.3 Automated blood basophil count (count/volume) 0.1 10*3/uL 0.0-0.1 Comprehensive metabolic panel - 07/06/19 05:25 Serum or plasma sodium measurement (moles/volume) 140 mmol/L 135-145 Serum or plasma potassium measurement (moles/volume) 3.9 mmol/L 3.6-5.0 Serum or plasma chloride measurement (moles/volume) 103 mmol/L 98-107 Carbon dioxide 22 mmol/L 21-32 Serum or plasma anion gap determination (moles/volume) 15 mmol/L 5-14 Serum or plasma urea nitrogen measurement (mass/volume ) 25 mg/dL 7-18 Serum or plasma creatinine measurement (mass/volume) 1.69 mg/dL 0.60-1.30 Serum or plasma urea nitrogen/creatinine mass ratio 15 NRG Serum or plasma creatinine measurement w ith calculation of estimated glomerular filtration rate 29 NRG Serum or plasma glucose measurement (mass/volume) 115 mg/dL 70-105 Serum or plasma calcium measurement (mass/volume) 8.5 mg/dL 8.5-10.1 Serum or plasma total bilirubin measurement (mass/volu me) 0.7 mg/dL 0.1-1.0 Serum or plasma alkaline phosphatase solomon surement (enzymatic activity/volume) 106 U/L 40-136 Serum or plasma aspartate aminotransfera se measurement (enzymatic activity/volume) 24 U/L 5-34 Serum or plasma alanine aminotransferase measurement (enzymatic activity/volume) 37 U/L 0-55 Serum or plasma protein measurement (mass/volume) 6.0 g/dL 6.4-8.2 Serum or plasma albumin measurement (mass/volume) 3.2 g/dL 3.2-4.5 CALCIUM CORRECTED 9.1 mg/dL 8.5-10.1 Magnesium - 07/06/19 05:25 Magnesium 1.9 mg/dL 1.6-2.4 Serum or plasma troponin i.cardiac measu rement (mass/volume) - 07/06/19 05:25 Serum or plasma troponin i.cardiac measurement (mass/v olume) 0.102 ng/mL <0.028 Serum or plasma lithium measurement (mol es/volume) - 07/06/19 05:25 BNP PT 301.9 pg/mL <100.0 Automated blood complete blood count (he mogram) panel - 07/07/19 05:50 Blood leukocytes automated count (number/volume) 10.7 10*3/uL 4.3-11.0 Blood erythrocytes automated count (number/volume) 3.80 10*6/uL 4.35-5.85 Venous blood hemoglobin measurement (mass/volume) 11.2 g/dL 11.5-16.0 Blood hematocrit (volume fraction) 34 % 35-52 Automated erythrocyte mean corpuscular volume 90 [ foz_us] 80-99 Automated erythrocyte mean corpuscular h emoglobin (mass per erythrocyte) 29 pg 25-34 Automated erythrocyte mean corpuscular h emoglobin concentration measurement (mass/volume) 33 g/dL 32-36 Automated erythrocyte distribution width ratio 14. 5 % 10.0- 14.5 Automated blood platelet count (count/volume) 233 10*3/uL 130-400 Automated blood platelet mean volume measurement 9.3 [foz_us] 7.4-10.4 Comprehensive metabolic panel - 07/07/19 05:50 Serum or plasma sodium measurement (moles/volume) 139 mmol/L 135-145 Serum or plasma potassium measurement (moles/volume) 3.8 mmol/L 3.6-5.0 Serum or plasma chloride measurement (moles/volume) 104 mmol/L 98-107 Carbon dioxide 26 mmol/L 21-32 Serum or plasma anion gap determination (moles/volume) 9 mmol/L 5-14 Serum or plasma urea nitrogen measurement (mass/volume ) 22 mg/dL 7-18 Serum or plasma creatinine measurement (mass/volume) 1.52 mg/dL 0.60-1.30 Serum or plasma urea nitrogen/creatinine mass ratio 14 NRG Serum or plasma creatinine measurement w ith calculation of estimated glomerular filtration rate 33 NRG Serum or plasma glucose measurement (mass/volume) 127 mg/dL 70-105 Serum or plasma calcium measurement (mass/volume) 8.1 mg/dL 8.5-10.1 Serum or plasma total bilirubin measurement (mass/volu me) 0.7 mg/dL 0.1-1.0 Serum or plasma alkaline phosphatase solomon surement (enzymatic activity/volume) 99 U/L 40-136 Serum or plasma aspartate aminotransfera se measurement (enzymatic activity/volume) 18 U/L 5-34 Serum or plasma alanine aminotransferase measurement (enzymatic activity/volume) 29 U/L 0-55 Serum or plasma protein measurement (mass/volume) 5.8 g/dL 6.4-8.2 Serum or plasma albumin measurement (mass/volume) 3.1 g/dL 3.2-4.5 CALCIUM CORRECTED 8.8 mg/dL 8.5-10.1 Serum or plasma troponin i.cardiac measu rement (mass/volume) - 07/07/19 05:50 Serum or plasma troponin i.cardiac measurement (mass/v olume) 0.067 ng/mL <0.028 THYROID STIMULATING HORMONE - 07/07/19 0 5:50 THYROID STIMULATING HORMONE 2.21 u[iU]/mL 0.35-4.94 Arterial blood gas measurement - 0 09:57 Blood pCO2 32 mm[Hg] 35-45 Blood pO2 71 mm[Hg] 79-93 Arterial blood bicarbonate measurement (moles/volume) 25 mmol/L 23-27 Arterial blood base excess by calculation 2.3 mmol /L -2.5-2.5 Arterial blood oxygen saturation measurement 97 % 94-100 * Inhaled oxygen flow rate 2 L NRG Arterial blood pH measurement with patient temperature correction 7.51 7.37-7.43 Arterial blood carbon dioxide, total measurement (mole s/volume) 26.3 mmol/L 21.0-31.0 Body site RT RAD NRG Assessment of wrist artery patency prior to arterial p uncture YES-POS NRG Setting of ventilation mode NO NR G Measurement of body temperature 36.9 NRG Complete blood count (CBC) with automate d white blood cell (WBC) differential - 07/08/19 05:33 Blood leukocytes automated count (number/volume) 10.3 10*3/uL 4.3-11.0 Blood erythrocytes automated count (number/volume) 3.36 10*6/uL 4.35-5.85 Venous blood hemoglobin measurement (mass/volume) 10.0 g/dL 11.5-16.0 Blood hematocrit (volume fraction) 30 % 35-52 Automated erythrocyte mean corpuscular volume 89 [ foz_us] 80-99 Automated erythrocyte mean corpuscular h emoglobin (mass per erythrocyte) 30 pg 25-34 Automated erythrocyte mean corpuscular h emoglobin concentration measurement (mass/volume) 33 g/dL 32-36 Automated erythrocyte distribution width ratio 14. 2 % 10.0- 14.5 Automated blood platelet count (count/volume) 229 10*3/uL 130-400 Automated blood platelet mean volume measurement 9.5 [foz_us] 7.4-10.4 Automated blood neutrophils/100 leukocytes 83 % 42-75 Automated blood lymphocytes/100 leukocytes 6 % 12-44 Blood monocytes/100 leukocytes 8 % 0-12 Automated blood eosinophils/100 leukocytes 3 % 0-10 Automated blood basophils/100 leukocytes 0 % 0-10 Blood neutrophils automated count (number/volume) 8.6 10*3 1.8-7.8 Blood lymphocytes automated count (number/volume) 0.6 10*3 1.0-4.0 Blood monocytes automated count (number/volume) 0. 9 10*3 0.0-1.0 Automated eosinophil count 0.3 10*3/uL 0 .0-0.3 Automated blood basophil count (count/volume) 0.0 10*3/uL 0.0-0.1 Comprehensive metabolic panel - 07/08/19 05:33 Serum or plasma sodium measurement (moles/volume) 136 mmol/L 135-145 Serum or plasma potassium measurement (moles/volume) 3.6 mmol/L 3.6-5.0 Serum or plasma chloride measurement (moles/volume) 104 mmol/L 98-107 Carbon dioxide 20 mmol/L 21-32 Serum or plasma anion gap determination (moles/volume) 12 mmol/L 5-14 Serum or plasma urea nitrogen measurement (mass/volume ) 22 mg/dL 7-18 Serum or plasma creatinine measurement (mass/volume) 1.39 mg/dL 0.60-1.30 Serum or plasma urea nitrogen/creatinine mass ratio 16 NRG Serum or plasma creatinine measurement w ith calculation of estimated glomerular filtration rate 36 NRG Serum or plasma glucose measurement (mass/volume) 124 mg/dL 70-105 Serum or plasma calcium measurement (mass/volume) 8.1 mg/dL 8.5-10.1 Serum or plasma total bilirubin measurement (mass/volu me) 0.7 mg/dL 0.1-1.0 Serum or plasma alkaline phosphatase solomon surement (enzymatic activity/volume) 88 U/L 40-136 Serum or plasma aspartate aminotransfera se measurement (enzymatic activity/volume) 12 U/L 5-34 Serum or plasma alanine aminotransferase measurement (enzymatic activity/volume) 23 U/L 0-55 Serum or plasma protein measurement (mass/volume) 5.3 g/dL 6.4-8.2 Serum or plasma albumin measurement (mass/volume) 2.8 g/dL 3.2-4.5 CALCIUM CORRECTED 9.1 mg/dL 8.5-10.1 Automated blood complete blood count ([facility]) panel - 07/10/19 05:00 Blood leukocytes automated count (number/volume) 6.1 10*3/uL 4.3-11.0 Blood erythrocytes automated count (number/volume) 3.43 10*6/uL 4.35-5.85 Venous blood hemoglobin measurement (mass/volume) 10.1 g/dL 11.5-16.0 Blood hematocrit (volume fraction) 30 % 35-52 Automated erythrocyte mean corpuscular volume 88 [ foz_us] 80-99 Automated erythrocyte mean corpuscular h emoglobin (mass per erythrocyte) 29 pg 25-34 Automated erythrocyte mean corpuscular h emoglobin concentration measurement (mass/volume) 34 g/dL 32-36 Automated erythrocyte distribution width ratio 14. 0 % 10.0- 14.5 Automated blood platelet count (count/volume) 249 10*3/uL 130-400 Automated blood platelet mean volume measurement 9.6 [foz_us] 7.4-10.4 Comprehensive metabolic panel - 07/10/19 05:30 Serum or plasma sodium measurement (moles/volume) 132 mmol/L 135-145 Serum or plasma potassium measurement (moles/volume) 3.6 mmol/L 3.6-5.0 Serum or plasma chloride measurement (moles/volume) 100 mmol/L 98-107 Carbon dioxide 22 mmol/L 21-32 Serum or plasma anion gap determination (moles/volume) 10 mmol/L 5-14 Serum or plasma urea nitrogen measurement (mass/volume ) 14 mg/dL 7-18 Serum or plasma creatinine measurement (mass/volume) 1.05 mg/dL 0.60-1.30 Serum or plasma urea nitrogen/creatinine mass ratio 13 NRG Serum or plasma creatinine measurement w ith calculation of estimated glomerular filtration rate 50 NRG Serum or plasma glucose measurement (mass/volume) 101 mg/dL 70-105 Serum or plasma calcium measurement (mass/volume) 8.3 mg/dL 8.5-10.1 Serum or plasma total bilirubin measurement (mass/volu me) 0.6 mg/dL 0.1-1.0 Serum or plasma alkaline phosphatase solomon surement (enzymatic activity/volume) 125 U/L 40-136 Serum or plasma aspartate aminotransfera se measurement (enzymatic activity/volume) 31 U/L 5-34 Serum or plasma alanine aminotransferase measurement (enzymatic activity/volume) 38 U/L 0-55 Serum or plasma protein measurement (mass/volume) 5.1 g/dL 6.4-8.2 Serum or plasma albumin measurement (mass/volume) 2.6 g/dL 3.2-4.5 CALCIUM CORRECTED 9.4 mg/dL 8.5-10.1 Magnesium - 07/10/19 05:30 Magnesium 1.8 mg/dL 1.6-2.4 Automated blood complete blood count (he mogram) panel - 07/11/19 05:54 Blood leukocytes automated count (number/volume) 6.4 10*3/uL 4.3-11.0 Blood erythrocytes automated count (number/volume) 3.40 10*6/uL 4.35-5.85 Venous blood hemoglobin measurement (mass/volume) 10.0 g/dL 11.5-16.0 Blood hematocrit (volume fraction) 30 % 35-52 Automated erythrocyte mean corpuscular volume 88 [ foz_us] 80-99 Automated erythrocyte mean corpuscular h emoglobin (mass per erythrocyte) 29 pg 25-34 Automated erythrocyte mean corpuscular h emoglobin concentration measurement (mass/volume) 34 g/dL 32-36 Automated erythrocyte distribution width ratio 14. 2 % 10.0- 14.5 Automated blood platelet count (count/volume) 267 10*3/uL 130-400 Automated blood platelet mean volume measurement 9.3 [foz_us] 7.4-10.4 Whole blood basic metabolic panel - 09/24 05:54 Serum or plasma sodium measurement (moles/volume) 129 mmol/L 135-145 Serum or plasma potassium measurement (moles/volume) 3.8 mmol/L 3.6-5.0 Serum or plasma chloride measurement (moles/volume) 99 mmol/L 98-107 Carbon dioxide 22 mmol/L 21-32 Serum or plasma anion gap determination (moles/volume) 8 mmol/L 5-14 Serum or plasma urea nitrogen measurement (mass/volume ) 11 mg/dL 7-18 Serum or plasma creatinine measurement (mass/volume) 0.98 mg/dL 0.60-1.30 Serum or plasma urea nitrogen/creatinine mass ratio 11 NRG Serum or plasma creatinine measurement w ith calculation of estimated glomerular filtration rate 54 NRG Serum or plasma glucose measurement (mass/volume) 105 mg/dL 70-105 Serum or plasma calcium measurement (mass/volume) 8.3 mg/dL 8.5-10.1 Complete blood count (CBC) with automate d white blood cell (WBC) differential - 07/12/19 05:26 Blood leukocytes automated count (number/volume) 5.6 10*3/uL 4.3-11.0 Blood erythrocytes automated count (number/volume) 3.49 10*6/uL 4.35-5.85 Venous blood hemoglobin measurement (mass/volume) 10.2 g/dL 11.5-16.0 Blood hematocrit (volume fraction) 30 % 35-52 Automated erythrocyte mean corpuscular volume 87 [ foz_us] 80-99 Automated erythrocyte mean corpuscular h emoglobin (mass per erythrocyte) 29 pg 25-34 Automated erythrocyte mean corpuscular h emoglobin concentration measurement (mass/volume) 34 g/dL 32-36 Automated erythrocyte distribution width ratio 13. 8 % 10.0- 14.5 Automated blood platelet count (count/volume) 282 10*3/uL 130-400 Automated blood platelet mean volume measurement 9.1 [foz_us] 7.4-10.4 Automated blood neutrophils/100 leukocytes 76 % 42-75 Automated blood lymphocytes/100 leukocytes 9 % 12-44 Blood monocytes/100 leukocytes 9 % 0-12 Automated blood eosinophils/100 leukocytes 6 % 0-10 Automated blood basophils/100 leukocytes 1 % 0-10 Blood neutrophils automated count (number/volume) 4.3 10*3 1.8-7.8 Blood lymphocytes automated count (number/volume) 0.5 10*3 1.0-4.0 Blood monocytes automated count (number/volume) 0. 5 10*3 0.0-1.0 Automated eosinophil count 0.4 10*3/uL 0 .0-0.3 Automated blood basophil count (count/volume) 0.0 10*3/uL 0.0-0.1 Comprehensive metabolic panel - 07/12/19 05:26 Serum or plasma sodium measurement (moles/volume) 128 mmol/L 135-145 Serum or plasma potassium measurement (moles/volume) 3.7 mmol/L 3.6-5.0 Serum or plasma chloride measurement (moles/volume) 98 mmol/L 98-107 Carbon dioxide 22 mmol/L 21-32 Serum or plasma anion gap determination (moles/volume) 8 mmol/L 5-14 Serum or plasma urea nitrogen measurement (mass/volume ) 10 mg/dL 7-18 Serum or plasma creatinine measurement (mass/volume) 1.00 mg/dL 0.60-1.30 Serum or plasma urea nitrogen/creatinine mass ratio 10 NRG Serum or plasma creatinine measurement w ith calculation of estimated glomerular filtration rate 53 NRG Serum or plasma glucose measurement (mass/volume) 104 mg/dL 70-105 Serum or plasma calcium measurement (mass/volume) 8.5 mg/dL 8.5-10.1 Serum or plasma total bilirubin measurement (mass/volu me) 0.6 mg/dL 0.1-1.0 Serum or plasma alkaline phosphatase solomon surement (enzymatic activity/volume) 128 U/L 40-136 Serum or plasma aspartate aminotransfera se measurement (enzymatic activity/volume) 32 U/L 5-34 Serum or plasma alanine aminotransferase measurement (enzymatic activity/volume) 48 U/L 0-55 Serum or plasma protein measurement (mass/volume) 5.3 g/dL 6.4-8.2 Serum or plasma albumin measurement (mass/volume) 2.7 g/dL 3.2-4.5 CALCIUM CORRECTED 9.5 mg/dL 8.5-10.1 Complete blood count (CBC) with automate d white blood cell (WBC) differential - 07/13/19 07:13 Blood leukocytes automated count (number/volume) 6.8 10*3/uL 4.3-11.0 Blood erythrocytes automated count (number/volume) 3.63 10*6/uL 4.35-5.85 Venous blood hemoglobin measurement (mass/volume) 10.5 g/dL 11.5-16.0 Blood hematocrit (volume fraction) 32 % 35-52 Automated erythrocyte mean corpuscular volume 88 [ foz_us] 80-99 Automated erythrocyte mean corpuscular h emoglobin (mass per erythrocyte) 29 pg 25-34 Automated erythrocyte mean corpuscular h emoglobin concentration measurement (mass/volume) 33 g/dL 32-36 Automated erythrocyte distribution width ratio 14. 3 % 10.0- 14.5 Automated blood platelet count (count/volume) 303 10*3/uL 130-400 Automated blood platelet mean volume measurement 8.8 [foz_us] 7.4-10.4 Automated blood neutrophils/100 leukocytes 79 % 42-75 Automated blood lymphocytes/100 leukocytes 9 % 12-44 Blood monocytes/100 leukocytes 8 % 0-12 Automated blood eosinophils/100 leukocytes 4 % 0-10 Automated blood basophils/100 leukocytes 0 % 0-10 Blood neutrophils automated count (number/volume) 5.3 10*3 1.8-7.8 Blood lymphocytes automated count (number/volume) 0.6 10*3 1.0-4.0 Blood monocytes automated count (number/volume) 0. 5 10*3 0.0-1.0 Automated eosinophil count 0.3 10*3/uL 0 .0-0.3 Automated blood basophil count (count/volume) 0.0 10*3/uL 0.0-0.1 Comprehensive metabolic panel - 07/13/19 07:13 Serum or plasma sodium measurement (moles/volume) 133 mmol/L 135-145 Serum or plasma potassium measurement (moles/volume) 3.6 mmol/L 3.6-5.0 Serum or plasma chloride measurement (moles/volume) 102 mmol/L 98-107 Carbon dioxide 24 mmol/L 21-32 Serum or plasma anion gap determination (moles/volume) 7 mmol/L 5-14 Serum or plasma urea nitrogen measurement (mass/volume ) 8 mg/dL 7-18 Serum or plasma creatinine measurement (mass/volume) 1.05 mg/dL 0.60-1.30 Serum or plasma urea nitrogen/creatinine mass ratio 8 NRG Serum or plasma creatinine measurement w ith calculation of estimated glomerular filtration rate 50 NRG Serum or plasma glucose measurement (mass/volume) 136 mg/dL 70-105 Serum or plasma calcium measurement (mass/volume) 8.6 mg/dL 8.5-10.1 Serum or plasma total bilirubin measurement (mass/volu me) 0.5 mg/dL 0.1-1.0 Serum or plasma alkaline phosphatase solomon surement (enzymatic activity/volume) 127 U/L 40-136 Serum or plasma aspartate aminotransfera se measurement (enzymatic activity/volume) 33 U/L 5-34 Serum or plasma alanine aminotransferase measurement (enzymatic activity/volume) 47 U/L 0-55 Serum or plasma protein measurement (mass/volume) 5.6 g/dL 6.4-8.2 Serum or plasma albumin measurement (mass/volume) 2.8 g/dL 3.2-4.5 CALCIUM CORRECTED 9.6 mg/dL 8.5-10.1 Complete blood count (CBC) with automate d white blood cell (WBC) differential - 07/17/19 05:25 Blood leukocytes automated count (number/volume) 5.1 10*3/uL 4.3-11.0 Blood erythrocytes automated count (number/volume) 3.62 10*6/uL 4.35-5.85 Venous blood hemoglobin measurement (mass/volume) 10.6 g/dL 11.5-16.0 Blood hematocrit (volume fraction) 32 % 35-52 Automated erythrocyte mean corpuscular volume 89 [ foz_us] 80-99 Automated erythrocyte mean corpuscular h emoglobin (mass per erythrocyte) 29 pg 25-34 Automated erythrocyte mean corpuscular h emoglobin concentration measurement (mass/volume) 33 g/dL 32-36 Automated erythrocyte distribution width ratio 14. 5 % 10.0- 14.5 Automated blood platelet count (count/volume) 348 10*3/uL 130-400 Automated blood platelet mean volume measurement 9.0 [foz_us] 7.4-10.4 Automated blood neutrophils/100 leukocytes 67 % 42-75 Automated blood lymphocytes/100 leukocytes 14 % 12-44 Blood monocytes/100 leukocytes 12 % 0-12 Automated blood eosinophils/100 leukocytes 7 % 0-10 Automated blood basophils/100 leukocytes 1 % 0-10 Blood neutrophils automated count (number/volume) 3.4 10*3 1.8-7.8 Blood lymphocytes automated count (number/volume) 0.7 10*3 1.0-4.0 Blood monocytes automated count (number/volume) 0. 6 10*3 0.0-1.0 Automated eosinophil count 0.3 10*3/uL 0 .0-0.3 Automated blood basophil count (count/volume) 0.0 10*3/uL 0.0-0.1 Comprehensive metabolic panel - 07/17/19 05:25 Serum or plasma sodium measurement (moles/volume) 137 mmol/L 135-145 Serum or plasma potassium measurement (moles/volume) 3.5 mmol/L 3.6-5.0 Serum or plasma chloride measurement (moles/volume) 102 mmol/L 98-107 Carbon dioxide 27 mmol/L 21-32 Serum or plasma anion gap determination (moles/volume) 8 mmol/L 5-14 Serum or plasma urea nitrogen measurement (mass/volume ) 11 mg/dL 7-18 Serum or plasma creatinine measurement (mass/volume) 1.26 mg/dL 0.60-1.30 Serum or plasma urea nitrogen/creatinine mass ratio 9 NRG Serum or plasma creatinine measurement w ith calculation of estimated glomerular filtration rate 40 NRG Serum or plasma glucose measurement (mass/volume) 103 mg/dL 70-105 Serum or plasma calcium measurement (mass/volume) 9.0 mg/dL 8.5-10.1 Serum or plasma total bilirubin measurement (mass/volu me) 0.5 mg/dL 0.1-1.0 Serum or plasma alkaline phosphatase solomon surement (enzymatic activity/volume) 122 U/L 40-136 Serum or plasma aspartate aminotransfera se measurement (enzymatic activity/volume) 20 U/L 5-34 Serum or plasma alanine aminotransferase measurement (enzymatic activity/volume) 31 U/L 0-55 Serum or plasma protein measurement (mass/volume) 5.8 g/dL 6.4-8.2 Serum or plasma albumin measurement (mass/volume) 3.0 g/dL 3.2-4.5 CALCIUM CORRECTED 9.8 mg/dL 8.5-10.1 Encounters ACCT No. Visit Date/Time Discharge Status Pt. Type Provider Facility Loc./Unit Complaint [id number] 07/05/2019 10:20:00 07/05/2019 23:59: 59 [facility] Outpatient BALDEV CORREA [facility] [id number] 05/18/2019 07:45:00 Document Registration [id number] 12/31/2018 08:40:00 Document Registration [id number] 10/06/2018 08:00:00 Document Registration [id number] 07/05/2019 14:56:00 10:30:00 DIS Inpatient JORDI RODRIGUEZ MD [facility] 4TH NAUSEA SOA RENAL IN SUFFICIENCY [id number] 07/03/2019 11:28:00 14:20:00 DIS Emergency ROVENSTINE DOMARVA L [facility] ER FS NAUSEA [id number] 07/01/2019 19:36:00 22:22:00 DIS Emergency HUSSEIN DODONALD L [facility] ER FS SOB [id number] 06/28/2019 16:30:00 12:49:00 DIS Inpatient FLOR HUANG MD [facility] CSD CHEST PAIN [id number] 06/10/2019 10:01:00 13:30:00 DIS Emergency ONOFRE CARRERA MD [facility] ER FS SOB; MARCELINO ANKLE SWELLING ; INDIGESTION [id number] 11/14/2018 23:00:00 13:46:00 DIS Inpatient FLOR HUANG MD [facility] 4TH ACUTE CORONARY SYNDROME [id number] 07/21/2018 09:41:00 019 12:50:00 DIS Emergency APOLONIA MCLEAN, ANNABEL Serna [facility] ER LT ARM PAIN [id number] 07/11/2019 10:30:[address] Inpatient ALICIA GASCA DO [facility] IRF NSTEMI
--- NOTE | 2019-07-17 14:14 | NUR ---
RD FOLLOW-UP Met with pt today to discuss dietary intake. Note pt has been requesting meal substitutions of cheeseburgers, chicken strips and ranch dressing. Pt states asking for these alternative foods which are not in the prescribed Heart Healthy diet. Per chart review, her most recent lipid panel (taken in 11/2018) indicated that her levels were within normal limits. INTERVENTION: Pt may benefit from diet advancement to Regular diet, for tolerance. Will continue to follow and reassess as pt needs and status change. Vonnie Terry MS, RD, LD [phone]
[2019-07-17 16:00] VITALS: BP 125/73
[2019-07-17 17:59] VITALS: BP 133/72
[2019-07-17] MEDS: RIVAROXABAN 20 MG TABLET (XARELTO) PO SCH (18:05)
[2019-07-17] MEDS: MELATONIN 3 MG TABLET PO PRN (20:42)
[2019-07-18 05:21] VITALS: BP 127/72
[2019-07-18] MEDS: LEVOTHYROXINE 25 MCG (LEVOTHROID) TAB PO SCH (05:45)
[2019-07-18] MEDS: SUCRALFATE 1 GM (CARAFATE) TAB PO SCH ×4 (06:17→20:45)
[2019-07-18] MEDS: DOCUSATE SODIUM 100 MG (COLACE) CAP PO SCH ×2 (08:14→20:45)
[2019-07-18] MEDS: MAGNESIUM OXIDE (MAG-OX)400 MG TAB PO SCH (08:14)
[2019-07-18] MEDS: KCL 20 MEQ TAB (K-DUR) PO SCH (08:14)
[2019-07-18] MEDS: SENNA W/DOCUSATE (SENOKOT S) TABLET PO SCH ×2 (08:14→20:45)
[2019-07-18] MEDS: CLOPIDOGREL 75 MG (PLAVIX) TABLET PO SCH (08:14)
[2019-07-18] MEDS: ASPIRIN E.C. 81 MG (ECOTRIN) TAB PO SCH (08:14)
[2019-07-18] MEDS: FUROSEMIDE 40 MG (LASIX) TAB PO SCH (08:14)
[2019-07-18] MEDS: polyethylene glycoL POWDER 17 GM (MIRALAX) PACK PO SCH ×2 (08:15→20:50)
[2019-07-18] MEDS: BENZONATATE 100 MG (TESSALON) CAPSULE PO SCH ×3 (08:15→20:44)
[2019-07-18] MEDS: METOCLOPRAMIDE 5 MG (REGLAN) TAB PO SCH ×2 (08:15→20:44)
[2019-07-18] MEDS: PANTOPRAZOLE 40 MG (PROTONIX) TAB PO SCH (08:15)
--- NOTE | 2019-07-18 08:16 | Cardiology Progress Note ---
Subjective Date Seen by Provider: Jul 18, 2019 Time Seen by Provider: 08:15 Subjective/Events-last exam Patient is sitting up in chair. States feeling better today and was able to get a full night's sleep. Denies any chest pain or dyspnea. Nausea is resolved. Review of Systems General: No Chills, No Night Sweats, No Fatigue, No Malaise, No Appetite, No Other HEENT: No Head Aches, No Visual Changes, No Eye Pain, No Ear Pain, No Dysphasia, No Sinus Congestion, No Post Nasal Drip, No Sore Throat, No Other Pulmonary: No Dyspnea, No Cough, No Pleuritic Chest Pain, No Other Cardiovascular: No: Chest Pain, Palpitations, Orthopnea, Paroxysmal Noc. Dyspnea, Edema, Lt Headedness, Other Objective-Cardiology Exam Last Set of Vital Signs Vital Signs 07/18/19 07/18/19 07/18/19 05:21 09:56 11:20 Temp 36.8 Pulse 75 Resp 18 B/P (MAP) 131/67 (88) Pulse Ox 97 O2 Delivery Nasal Cannula O2 Flow Rate 2.00 Capillary Refill : Less Than 3 Seconds I&O Intake and Output 07/18/19 00:00 Intake Total 2650 ml Output Total 2075 ml Balance 575 ml Intake Oral 2650 ml Output Urine Total 2075 ml # Bowel Movements 2 General: Alert, Oriented X3, Cooperative HEENT: Atraumatic, PERRLA Neck: Supple, No JVD, No Thyromegaly Lungs: Clear to Auscultation, Normal Air Movement Heart: Regular Rate, Normal S1, Normal S2 Abdomen: Soft, No Tenderness Extremities: No Clubbing, Other (trace edema) Skin: No Rashes, No Significant Lesion Neuro: Normal Speech, Cranial Nerves 3-12 NL Psych/Mental Status: Mental Status NL, Mood NL A/P-Cardiology Admission Diagnosis Chest pain PAF CAD HTN Assessment/Plan Chest pain, mild elevation in troponin, diffuse abdominal pain, non-ST elevation myocardial infarction due to small vessel disease. Patient reports improvement of chest pain. Medical therapy is recommended. Abdominal pain, nausea and vomiting, diffuse discomfort, better after discontinuation of amiodarone and Lipitor, patient had episode of nausea after amiodarone given, discontinued amiodarone and Lipitor at this time and consider this medication as an allergy to the patient. Anxiety, depression, continue on Zoloft and monitor Elevated BNP, echocardiogram showed left ventricular hypertrophy with hyperactive ventricle, gradient across the left ventricular outflow tract probably due to hypovolemia, chronic left ventricular diastolic dysfunction, hypertensive heart disease. Coronary artery disease, history of multiple interventions in the past, had a total of 3 stents. Underwent cardiac catheterization on November 15, 2018 revealing moderate stenosis at the ostium of the right coronary artery, heavily calcified. 2 stents in the mid right coronary artery are patent with small vessel disease distally. Calcified left main coronary artery is moderate stenosis, nonobstructive disease. Patent stents in the mid circumflex artery with no obstructive disease, mild disease in LAD. Underwent cardiac catheterization on June 29, 2019 with balloon angioplasty to the mid right coronary artery and stenting to the ostium of the right coronary artery using Maryann 3 x 15 mm stent expanded to 3.25 mm with excellent results, still have moderate stenosis at the mid left main, mid LAD and mid circumflex artery with small vessel disease. Persistent atrial fibrillation, maintained on Xarelto, amiodarone discontinued, continue to monitor High risk of bleed, patient is maintained on aspirin, Plavix and Xarelto, I will consider stopping Xarelto if needed Peripheral edema, better at this time. Upper respiratory infection, recently diagnosed and treated with steroids as outpatient. Continue to monitor. Hypertension, continue on home medication Hyperlipidemia, continue holding Lipitor. Monitor tolerance and response Carotid artery stenosis, mild bilateral nonobstructive disease per carotid duple x done December 2018 Prediabetes Patient was seen and evaluated with Cortney, examination performed, management plan was discussed, agree with the current scribed note, I made few changes to the note using Italic font Patient is feeling better, no new complaint Continue on current medication continue to monitor closely Clinical Quality Measures DVT/VTE Risk/Contraindication: Risk Factor Score Per Nursin RFS Level Per Nursing on Admit: 4+=Very High CORTNEY POWERS Jul 18, 2019 8:16 am GEOFF THOMSON MD Jul 18, 2019 11:35 am
--- NOTE | 2019-07-18 08:57 | PM&R Progress Note ---
Subjective HPI/CC On Admission Date Seen by Provider: Jul 18, 2019 Time Seen by Provider: 09:00 Subjective/Events-last exam Had a BM today. Potassium 3.5 on supplement. SARAH wraps are tolerated for lower extremity edema. No pain is reported. Overall is doing very well. Checked meds and labs Reviewed therapy notes Conferred with publication distributor of Systems General: Fatigue, Malaise Cardiovascular: Edema Objective Exam Vital Signs Vital Signs Date Time Temp Pulse Resp B/P (MAP) Pulse Ox O2 Delivery O2 Flow Rate FiO2 07/18/19 18:44 98 Nasal Cannula 2.00 07/18/19 18:27 36.4 79 12 128/76 (93) Capillary Refill : Less Than 3 Seconds General Appearance: No Apparent Distress, WD/WN, Chronically ill, Obese HEENT: PERRL/EOMI, Normal ENT Inspection, Pharynx Normal Neck: Full Range of Motion, Normal Inspection, Non Tender, Supple, Carotid Bruit Respiratory: Chest Non Tender, Lungs Clear, Normal Breath Sounds, No Accessory Muscle Use, No Respiratory Distress Cardiovascular: Regular Rate, Rhythm, No Gallop, No JVD, No Murmur, Normal Peripheral Pulses Gastrointestinal: Normal Bowel Sounds, No Organomegaly, No Pulsatile Mass, Non Tender, Soft Back: Normal Inspection, No CVA Tenderness, No Vertebral Tenderness Extremity: Normal Capillary Refill, Normal Inspection, Normal Range of Motion, Non Tender, No Calf Tenderness, Pedal Edema Neurologic/Psychiatric: Alert, Oriented x3, No Motor/Sensory Deficits, Normal Mood/Affect, 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 FIM Transfers Therapy Code Descriptions/Definitions Functional [place] Measure: 0=Not Assessed/NA 4=Minimal Assistance 1=Total Assistance 5=Supervision or Setup 2=Maximal Assistance 6=Modified Wilson 3=Moderate Assistance 7=Complete IndependenceSCALE: Activities may be completed with or without assistive devices. 4-Eqluykffli-togsuof completes the activity by him/herself with no assistance from a helper. 5-Set-up or Clean-up Assistance-helper sets up or cleans up; patient completes activity. [place] assists only prior to or following the activity. 4-Supervision or Touching Assistance-helper provides verbal cues and/or touching/steadying and/or contact guard assistance as patient completes activity. Assistance may be provided throughout the activity or intermittently. 3-Partial/Moderate Assistance-helper does LESS THAN HALF the effort. [place] lifts, holds or supports trunk or limbs, but provides less than half the effort. 2-Substantial/Maximal Assistance-helper does MORE THAN HALF the effort. [place] lifts or holds trunk or limbs and provides more than half the effort. 0-Tjghekzar-ovpwxb does ALL the effort. Patient does none of the effort to complete the activity. Or, the assistance of 2 or more helpers is required for the patient to complete the activity. If activity was not attempted, code reason: 7-Patient Refused. 9-Not Applicable-not attempted and the patient did not perform the activity before the current illness, exacerbation or injury. 10-Not Attempted due to Environmental Limitations-(lack of equipment, weather restraints, etc.). 88-Not Attempted due to Medical Conditions or Safety Concerns. Roll Left to Right (QC): 6 Sit to Lying (QC): 6 Sit to Stand (QC): 6 Chair/Ovo-xb-Zfsrt Xfer(QC): 6 Car Transfer (QC): 4 (Patient attempted putting feet in car first when instructed to perform like she normally does.) Gait Training Does the Patient Walk?: Yes Distance: 150'x2 Walk 10 feet (QC): 4 Walk 50 ft with 2 Turns(QC): 4 Walk 150 ft (QC): 4 Walking 10ft/uneven surface-QC: 4 Gait Persons Needed: 1 Gait Assistive Device: FWW Wheelchair Training Does the Pt Use a Wheelchair?: No Stair Training #of Steps: 1 1 Step (curb) (QC): 4 Balance Picking up an Object (QC): 4 ADL-Treatment Eating (QC): 6 Oral Hygiene (QC): 6 Shower/Bathe Self (QC): 4 Upper Body Dressing (QC): 5 Lower Body Dressing (QC): 5 On/Off Footwear (QC): 3 Toileting Hygiene (QC): 6 Toilet Transfer (QC): 6 Assessment/Plan Assessment and Plan Assess & Plan/Chief Complaint Assessment: Cardiac debility s/p NSTEMI Severe debilitating nausea and vomiting now resolved since DC Amiodarone and Lipitor Severe deconditioning CAD w/recent stent placement AF OAC CRI Hyponatremia Delirium resolved Edema Plan: IVF HL Fluid restriction to continue until labs are checked tomorrow Monitor closely SARAH wraps (1) Debility Status: Acute (2) NSTEMI (non-ST elevated myocardial infarction) Status: Acute (3) Angina at rest Status: Acute (4) Atrial fibrillation Status: Chronic (5) CAD (coronary artery disease) Status: Chronic (6) Hypothyroidism Status: Chronic (7) HTN (hypertension) Status: Chronic (8) HLD (hyperlipidemia) Status: Chronic (9) Acute kidney insufficiency Status: Resolved Resolution Date/Time: 07/10/19 @ 16:43 (10) DVT prophylaxis Status: Acute (11) CHF (congestive heart failure) Status: Acute (12) Duodenitis Status: Acute (13) Dyspepsia Status: Acute (14) Elevated brain natriuretic peptide (BNP) level Status: Acute ALICIA GASCA DO Jul 18, 2019 08:56
[2019-07-18] MEDS: RT-ADVAIR HFA 45/21 MCG PER PUFF IH SCH ×2 (09:39→18:44)
--- NOTE | 2019-07-18 10:08 | Physical Therapy Daily Note ---
PT Daily Note-Current Subjective Pt agreeable to PT session. Pain Numeric Pain Scale: 0-No Pain Appearance Pt sitting up in recliner upon arrival, awake and alert, [employer] present. Pt requesting and assisted to restroom, I with milka care. At end of session, pt sitting up in recliner with call light, phone and bedside table within reach. Mental Status Patient Orientation: Person, Place, Time, Eyes Open, Situation Attachments: Oxygen (2L/NC) Transfers SCALE: Activities may be completed with or without assistive devices. 3-Cdtkhyceag-xfnuyjp completes the activity by him/herself with no assistance from a helper. 5-Set-up or Clean-up Assistance-helper sets up or cleans up; patient completes activity. [place] assists only prior to or following the activity. 4-Supervision or Touching Assistance-helper provides verbal cues and/or touching/steadying and/or contact guard assistance as patient completes activity. Assistance may be provided throughout the activity or intermittently. 3-Partial/Moderate Assistance-helper does LESS THAN HALF the effort. [place] lifts, holds or supports trunk or limbs, but provides less than half the effort. 2-Substantial/Maximal Assistance-helper does MORE THAN HALF the effort. [place] lifts or holds trunk or limbs and provides more than half the effort. 0-Pgrmqpsxh-vvvrde does ALL the effort. Patient does none of the effort to complete the activity. Or, the assistance of 2 or more helpers is required for the patient to complete the activity. If activity was not attempted, code reason: 7-Patient Refused. 9-Not Applicable-not attempted and the patient did not perform the activity before the current illness, exacerbation or injury. 10-Not Attempted due to Environmental Limitations-(lack of equipment, weather restraints, etc.). 88-Not Attempted due to Medical Conditions or Safety Concerns. Sit to Stand (QC): 6 Weight Bearing Right Lower Extremity: Right Full Weight Bearing Left Lower Extremity: Left Full Weight Bearing Gait Training Does the Patient Walk?: Yes Distance: 180 x2 Walk 10 feet (QC): 4 Walk 50 ft with 2 Turns(QC): 4 Walk 150 ft (QC): 4 Gait Persons Needed: 1 Gait Assistive Device: FWW slow pace, no LOB or unsteadiness, fatigue and slight SOA Exercises Seated Therapy Exercises: Ankle pumps (20), Long arc quads (20), Chair press- ups (2x10), Hip flexion (20), Reaching activity (20 reaching across body), Hip abd/add (knees extended x20), Glut set (20) Standing: Hip Abduction, Hamstring curls, Heel/toe raises, 3 way Ex=Flex, Abd, Ext, Marching, Mini squats, Retro gait, Sit to Stand Standing Reps: 20 NuStep Minutes: 15 NuStep Workload: 4 Treatments education, safety, transfers, gait, strength, balance, activity tolerance, functional mobility Assessment slight SOA and requiring sitting rest after each 2 standing ex's performed PT Short Term Goals Short Term Goals Time Frame: Jul 11, 2019 PT Medical Consultant Goals Medical Consultant Goals PT Skilled Nursing Goals Time Frame: Aug 05, 2019 Roll Left & Right (QC): 6 Sit to Lying (QC): 6 Lying-Sitting on Side/Bed(QC): 6 Sit to Stand (QC): 6 Chair/Ocn-jm-Enczq Xfer(QC): 6 Toilet Transfer (QC): 6 Car Transfer (QC): 6 Does the Patient Walk: Yes Walk 10 feet (QC): 6 Walk 50ft with 2 Turns (QC): 6 Walk 150 ft (QC): 6 Walking 10ft on Uneven Surface: 6 1 Step (curb) (QC): 6 Does the Pt use WC or Scooter?: No PT Plan Treatment/Plan Treatment Plan: Continue Plan of Care Treatment Plan: Bed Mobility, Concurrent Therapy, Education, Functional Activity Abdiel, Functional Strength, Group Therapy, Gait, Safety, Therapeutic Exercise, Transfers Treatment Duration: Aug 05, 2019 Frequency: At least 5 of 7 days/Wk (IRF) Estimated Hrs Per Day: 1.5 hours per day Patient and/or Family Agrees t: Yes Safety Risks/Education Patient Education: Gait Training, Transfer Techniques, Safety Issues Teaching Recipient: Patient Teaching Methods: Demonstration, Discussion Time/GCodes Time In: 1000 Time Out: 1100 Total Billed Treatment Time: 60 Total Billed Treatment 1 visit, GT x15 min, EX x30 min, FA x15 min MARIELOS MAY PTA Jul 18, 2019 10:08
[2019-07-18 11:20] VITALS: BP 131/67
--- NOTE | 2019-07-18 11:22 | Occupational Ther Daily Note ---
OT Current Status-Daily Note Subjective Pt sitting in chair, agrees to treatment. Has no c/o pain. Pt reports feeling better today. Mental Status/Objective Attachments: Oxygen ADL-Treatment Pt requests shower this morning. Sit to stand from chair with modified independence. Pt retrieved clothing from closet with FWW for balance. Gait to restroom with FWW, no LOB noted. Transfer to walk in shower using grab bars for safety. Pt doffed clothing without assist. Seated bathing completed using hand held shower. Pt able to wash all areas after set up. Don pullover night gown without assist. Pt able to thread bilateral LE into underwear. Stood with good balance during pant hike. Pt used sock aid to don bilateral socks with increased time. Stood at sink to complete oral care and comb hair without assist. Pt fatigues with activity and requires occasional rest breaks during ADL tasks. Pt requires assist to manage O2 tubing during ADLs, and cues for safety. Discussed home bathroom set up. Pt states she has a tub/shower combo and a shower chair. Gait to shower room with FWW to practice transfer. Pt completed tub transfer with min assist using shower chair. Educated pt on use of tub transfer bench and pt was able to complete transfer with CGA. Pt states she feels more comfortable with the tub transfer bench and will discuss getting one with daughter. Pt returned to room, sitting in chair with needs met after session. Therapy Code Descriptions/Definitions Functional [place] Measure: 0=Not Assessed/NA 4=Minimal Assistance 1=Total Assistance 5=Supervision or Setup 2=Maximal Assistance 6=Modified [place] 3=Moderate Assistance 7=Complete IndependenceSCALE: Activities may be completed with or without assistive devices. 1-Ghundoyenh-beaofqu completes the activity by him/herself with no assistance from a helper. 5-Set-up or Clean-up Assistance-helper sets up or cleans up; patient completes activity. [place] assists only prior to or following the activity. 4-Supervision or Touching Assistance-helper provides verbal cues and/or touching/steadying and/or contact guard assistance as patient completes activity. Assistance may be provided throughout the activity or intermittently. 3-Partial/Moderate Assistance-helper does LESS THAN HALF the effort. [place] lifts, holds or supports trunk or limbs, but provides less than half the effort. 2-Substantial/Maximal Assistance-helper does MORE THAN HALF the effort. [place] lifts or holds trunk or limbs and provides more than half the effort. 5-Tivganucd-crmbrm does ALL the effort. Patient does none of the effort to complete the activity. Or, the assistance of 2 or more helpers is required for the patient to complete the activity. If activity was not attempted, code reason: 7-Patient Refused. 9-Not Applicable-not attempted and the patient did not perform the activity before the current illness, exacerbation or injury. 10-Not Attempted due to Environmental Limitations-(lack of equipment, weather restraints, etc.). 88-Not Attempted due to Medical Conditions or Safety Concerns. Oral Hygiene (QC): 6 Shower/Bathe Self (QC): 5 Upper Body Dressing (QC): 6 Lower Body Dressing (QC): 5 On/Off Footwear: 5 Education OT Patient Education: Safety issues Teaching Recipient: Patient Teaching Methods: Discussion Response to Teaching: Verbalize Understanding OT Compliance Intern Goals Senior Living Goals Time Frame: Aug 01, 2019 Eating (QC): 6 Oral Hygiene (QC): 6 Toileting Hygiene (QC): 6 Shower/Bathe Self (QC): 5 Upper Body Dressing (QC): 6 Lower Body Dressing (QC): 6 On/Off Footwear (QC): 6 Additional Goals: 1-Demonstrate ADL Tasks, 2-Verbalize Understanding, 3- ImproveStrength/Abdiel 1=Demonstrate adherence to instructed precautions during ADL tasks. 2=Patient will verbalize/demonstrate understanding of assistive devices/modifications for ADL. 3=Patient will improve strength/tolerance for activity to enable patient to perform ADL's. OT Education/Plan Discharge Recommendations Plan/Recommendations: Continue POC Treatment Plan/Plan of Care Patient would benefit from OT for education, treatment and training to promote independence in ADL's, mobility, safety and/or upper extremity function for ADL's. Plan of Care: ADL Retraining, Functional Mobility, Group Exercise/Act as Ind, UE Funct Exercise/Act Treatment Duration: Aug 01, 2019 Frequency: At least 5 of 7 days/Wk (IRF) Estimated Hrs Per Day: 1.5 hours per day Agreement: Yes Rehab Potential: Fair Time/GCodes Start Time: 08:15 Stop Time: 09:15 Total Time Billed (hr/min): 60 Billed Treatment Time 1 visit, ADLx4(60minutes) NANDO LOAIZA OT Jul 18, 2019 11:22
--- NOTE | 2019-07-18 12:51 | Occupational Ther Daily Note ---
OT Current Status-Daily Note Subjective Pt sitting in chair, agrees to treatment. Mental Status/Objective Attachments: Oxygen ADL-Treatment Therapy Code Descriptions/Definitions Functional [place] Measure: 0=Not Assessed/NA 4=Minimal Assistance 1=Total Assistance 5=Supervision or Setup 2=Maximal Assistance 6=Modified [place] 3=Moderate Assistance 7=Complete IndependenceSCALE: Activities may be completed with or without assistive devices. 9-Utrcgvxdek-fxnbteq completes the activity by him/herself with no assistance from a helper. 5-Set-up or Clean-up Assistance-helper sets up or cleans up; patient completes activity. [place] assists only prior to or following the activity. 4-Supervision or Touching Assistance-helper provides verbal cues and/or touching/steadying and/or contact guard assistance as patient completes activ ity. Assistance may be provided throughout the activity or intermittently. 3-Partial/Moderate Assistance-helper does LESS THAN HALF the effort. [place] lifts, holds or supports trunk or limbs, but provides less than half the effort. 2-Substantial/Maximal Assistance-helper does MORE THAN HALF the effort. [place] lifts or holds trunk or limbs and provides more than half the effort. 4-Uwmyarnou-xkasqv does ALL the effort. Patient does none of the effort to complete the activity. Or, the assistance of 2 or more helpers is required for the patient to complete the activity. If activity was not attempted, code reason: 7-Patient Refused. 9-Not Applicable-not attempted and the patient did not perform the activity before the current illness, exacerbation or injury. 10-Not Attempted due to Environmental Limitations-(lack of equipment, weather restraints, etc.). 88-Not Attempted due to Medical Conditions or Safety Concerns. Other Treatment Sit to stand without assist. Gait to therapy gym with FWW, no LOB noted. Assist only for O2 tank. Pt completed UE arm arc activity while standing to promote UE reaching/strength, and overall activity tolerance needed for functional task completion. Pt demonstrates good standing balance. Did not require a rest break until completion of activity. Arm bike [id number] to increase activity tolerance. Pt performed task without resistance and with slow pace. Pt does not demonstrate any shortness of breath. Pt returned to room, sitting in chair with needs met after session. OT Server Security Administrator Goals Correction Goals Time Frame: Aug 01, 2019 Eating (QC): 6 Oral Hygiene (QC): 6 Toileting Hygiene (QC): 6 Shower/Bathe Self (QC): 5 Upper Body Dressing (QC): 6 Lower Body Dressing (QC): 6 On/Off Footwear (QC): 6 Additional Goals: 1-Demonstrate ADL Tasks, 2-Verbalize Understanding, 3- ImproveStrength/Abdiel 1=Demonstrate adherence to instructed precautions during ADL tasks. 2=Patient will verbalize/demonstrate understanding of assistive devices/modifications for ADL. 3=Patient will improve strength/tolerance for activity to enable patient to perform ADL's. OT Education/Plan Discharge Recommendations Plan/Recommendations: Continue POC Treatment Plan/Plan of Care Patient would benefit from OT for education, treatment and training to promote independence in ADL's, mobility, safety and/or upper extremity function for ADL's. Plan of Care: ADL Retraining, Functional Mobility, Group Exercise/Act as Ind, UE Funct Exercise/Act Treatment Duration: Aug 01, 2019 Frequency: At least 5 of 7 days/Wk (IRF) Estimated Hrs Per Day: 1.5 hours per day Agreement: Yes Rehab Potential: Fair Time/GCodes Start Time: 11:30 Stop Time: 12:00 Total Time Billed (hr/min): 30 Billed Treatment Time 1 visit, FA(20minutes), EX(10minutes) NANDO LOAIZA OT Jul 18, 2019 12:51
--- NOTE | 2019-07-18 13:59 | Physical Therapy Daily Note ---
PT Daily Note-Current Subjective Pt agreeable to PT session. Pain Numeric Pain Scale: 0-No Pain Appearance Pt sitting up in recliner awake and alert upon arrival. Pt requesting and assisted to restroom, I with milka care. At end of session, pt sitting up in recliner with call light, phone, bedside table within reach. Mental Status Patient Orientation: Normal For Age Attachments: Oxygen (2L) Transfers SCALE: Activities may be completed with or without assistive devices. 7-Hmblqnroem-lhonuxu completes the activity by him/herself with no assistance from a helper. 5-Set-up or Clean-up Assistance-helper sets up or cleans up; patient completes activity. [place] assists only prior to or following the activity. 4-Supervision or Touching Assistance-helper provides verbal cues and/or touching/steadying and/or contact guard assistance as patient completes activity. Assistance may be provided throughout the activity or intermittently. 3-Partial/Moderate Assistance-helper does LESS THAN HALF the effort. [place] lifts, holds or supports trunk or limbs, but provides less than half the effort. 2-Substantial/Maximal Assistance-helper does MORE THAN HALF the effort. [place] lifts or holds trunk or limbs and provides more than half the effort. 5-Fnpfqylfp-dqixbo does ALL the effort. Patient does none of the effort to complete the activity. Or, the assistance of 2 or more helpers is required for the patient to complete the activity. If activity was not attempted, code reason: 7-Patient Refused. 9-Not Applicable-not attempted and the patient did not perform the activity before the current illness, exacerbation or injury. 10-Not Attempted due to Environmental Limitations-(lack of equipment, weather restraints, etc.). 88-Not Attempted due to Medical Conditions or Safety Concerns. Sit to Stand (QC): 5 Weight Bearing Right Lower Extremity: Right Full Weight Bearing Left Lower Extremity: Left Full Weight Bearing Gait Training Does the Patient Walk?: Yes Distance: 150 x2, 75 Walk 10 feet (QC): 5 Walk 50 ft with 2 Turns(QC): 4 Walk 150 ft (QC): 4 Gait Persons Needed: 1 Gait Assistive Device: FWW No LOB or unsteadiness, pt with some SOA and fatigue requiring sitting and standing rest breaks Treatments education, safety, transfers, gait, toileting, strength, balance, activity tolerance, functional mobility Assessment increasing gait distances but continues with SOA and fatigue PT Short Term Goals Short Term Goals Time Frame: Jul 11, 2019 PT Fpc Goals Structural Architect Goals PT Structural Architect Goals Time Frame: Aug 05, 2019 Roll Left & Right (QC): 6 Sit to Lying (QC): 6 Lying-Sitting on Side/Bed(QC): 6 Sit to Stand (QC): 6 Chair/Sas-un-Huksq Xfer(QC): 6 Toilet Transfer (QC): 6 Car Transfer (QC): 6 Does the Patient Walk: Yes Walk 10 feet (QC): 6 Walk 50ft with 2 Turns (QC): 6 Walk 150 ft (QC): 6 Walking 10ft on Uneven Surface: 6 1 Step (curb) (QC): 6 Does the Pt use WC or Scooter?: No PT Plan Treatment/Plan Treatment Plan: Continue Plan of Care Treatment Plan: Bed Mobility, Concurrent Therapy, Education, Functional Activity Abdiel, Functional Strength, Group Therapy, Gait, Safety, Therapeutic Exercise, Transfers Treatment Duration: Aug 05, 2019 Frequency: At least 5 of 7 days/Wk (IRF) Estimated Hrs Per Day: 1.5 hours per day Patient and/or Family Agrees t: Yes Safety Risks/Education Patient Education: Gait Training, Transfer Techniques, Safety Issues Teaching Recipient: Patient Teaching Methods: Demonstration, Discussion Response to Teaching: Verbalize Understanding, Return Demonstration Time/GCodes Time In: 1330 Time Out: 1400 Total Billed Treatment Time: 30 Total Billed Treatment 1 visit, GT x20 min, FA x10 min MARIELOS MAY CHILD AND FAMILY SERVICES SPECIALIST Jul 18, 2019 13:59
[2019-07-18] MEDS: RIVAROXABAN 20 MG TABLET (XARELTO) PO SCH (17:14)
[2019-07-18 18:27] VITALS: BP 128/76
[2019-07-18] MEDS: MELATONIN 3 MG TABLET PO PRN (20:44)
[2019-07-19] MEDS: LEVOTHYROXINE 25 MCG (LEVOTHROID) TAB PO SCH (05:45)
[2019-07-19 05:48] VITALS: BP 145/73
[2019-07-19] MEDS: SUCRALFATE 1 GM (CARAFATE) TAB PO SCH ×4 (06:25→20:35)
[2019-07-19] MEDS: RT-ADVAIR HFA 45/21 MCG PER PUFF IH SCH ×2 (07:42→19:02)
--- NOTE | 2019-07-19 08:29 | Cardiology Progress Note ---
Subjective Date Seen by Provider: Jul 19, 2019 Time Seen by Provider: 08:25 Subjective/Events-last exam Patient is sitting up in chair, no new complaints. Denies any chest pain, nausea or vomiting. Review of Systems General: No Chills, No Night Sweats, No Fatigue, No Malaise, No Appetite, No Other HEENT: No Head Aches, No Visual Changes, No Eye Pain, No Ear Pain, No Dysphasia, No Sinus Congestion, No Post Nasal Drip, No Sore Throat, No Other Pulmonary: No Dyspnea, No Cough, No Pleuritic Chest Pain, No Other Cardiovascular: No: Chest Pain, Palpitations, Orthopnea, Paroxysmal Noc. Dyspne a, Edema, Lt Headedness, Other Objective-Cardiology Exam Last Set of Vital Signs Vital Signs 07/19/19 07/19/19 07/19/19 07/19/19 05:48 07:42 08:55 13:30 Temp 36.5 Pulse 91 Resp 18 B/P (MAP) 143/74 (97) Pulse Ox 98 O2 Delivery Nasal Cannula O2 Flow Rate 2.00 Capillary Refill : Less Than 3 Seconds I&O Intake and Output 07/18/19 23:59 Intake Total 1220 ml Output Total 1300 ml Balance -80 ml Intake Oral 1220 ml Output Urine Total 1300 ml # Bowel Movements 2 General: Alert, Oriented X3, Cooperative HEENT: Atraumatic, PERRLA Neck: Supple, No JVD, No Thyromegaly Lungs: Clear to Auscultation, Normal Air Movement Heart: Regular Rate, Normal S1, Normal S2 Abdomen: Soft, No Tenderness Extremities: No Clubbing, Other (trace edema) Skin: No Rashes, No Significant Lesion Neuro: Normal Speech, Cranial Nerves 3-12 NL Psych/Mental Status: Mental Status NL, Mood NL A/P-Cardiology Admission Diagnosis Chest pain PAF CAD HTN Assessment/Plan Chest pain, mild elevation in troponin, diffuse abdominal pain, non-ST elevation myocardial infarction due to small vessel disease. Patient reports improvement of chest pain. Medical therapy is recommended. Abdominal pain, nausea and vomiting, diffuse discomfort, better after discontinuation of amiodarone and Lipitor, patient had episode of nausea after amiodarone given, discontinued amiodarone and Lipitor at this time and consider this medication as an allergy to the patient. Anxiety, depression, continue on Zoloft and monitor Elevated BNP, echocardiogram showed left ventricular hypertrophy with hyperactiv e ventricle, gradient across the left ventricular outflow tract probably due to hypovolemia, chronic left ventricular diastolic dysfunction, hypertensive heart disease, clinically improved. Coronary artery disease, history of multiple interventions in the past, had a total of 3 stents. Underwent cardiac catheterization on November 15, 2018 revealing moderate stenosis at the ostium of the right coronary artery, heavily calcified. 2 stents in the mid right coronary artery are patent with small vessel disease distally. Calcified left main coronary artery is moderate stenosis, nonobstructive disease. Patent stents in the mid circumflex artery with no obstructive disease, mild disease in LAD. Underwent cardiac catheterization on June 29, 2019 with balloon angioplasty to the mid right coronary artery and stenting to the ostium of the right coronary artery using Maryann 3 x 15 mm stent expanded to 3.25 mm with excellent results, still have moderate stenosis at the mid left main, mid LAD and mid circumflex artery with small vessel disease. Persistent atrial fibrillation, maintained on Xarelto, amiodarone discontinued, continue to monitor High risk of bleed, patient is maintained on aspirin, Plavix and Xarelto, I will consider stopping Xarelto if needed Peripheral edema, better at this time. Upper respiratory infection, recently diagnosed and treated with steroids as outpatient. Continue to monitor. Hypertension, continue on home medication Hyperlipidemia, continue holding Lipitor. Monitor tolerance and response Carotid artery stenosis, mild bilateral nonobstructive disease per carotid duplex done December 2018 Prediabetes Patient was seen and evaluated with [place], examination performed, management plan was discussed, agree with the current scribed note, I made few changes to the note using Italic font Patient is feeling significantly better. Nausea is better. No chest pain. Continue on current medications and continue to monitor Clinical Quality Measures DVT/VTE Risk/Contraindication: Risk Factor Score Per Nursin RFS Level Per Nursing on Admit: 4+=Very High CORTNEY POWERS Jul 19, 2019 8:29 am GEOFF THOMSON MD Jul 19, 2019 4:57 pm
[2019-07-19] MEDS: PANTOPRAZOLE 40 MG (PROTONIX) TAB PO SCH (09:30)
[2019-07-19] MEDS: MAGNESIUM OXIDE (MAG-OX)400 MG TAB PO SCH (09:30)
[2019-07-19] MEDS: BENZONATATE 100 MG (TESSALON) CAPSULE PO SCH ×3 (09:30→20:35)
[2019-07-19] MEDS: METOCLOPRAMIDE 5 MG (REGLAN) TAB PO SCH ×2 (09:30→20:35)
[2019-07-19] MEDS: ASPIRIN E.C. 81 MG (ECOTRIN) TAB PO SCH (09:30)
[2019-07-19] MEDS: KCL 20 MEQ TAB (K-DUR) PO SCH (09:31)
[2019-07-19] MEDS: SENNA W/DOCUSATE (SENOKOT S) TABLET PO SCH ×2 (09:31→20:35)
[2019-07-19] MEDS: DOCUSATE SODIUM 100 MG (COLACE) CAP PO SCH ×2 (09:31→20:35)
[2019-07-19] MEDS: CLOPIDOGREL 75 MG (PLAVIX) TABLET PO SCH (09:31)
[2019-07-19] MEDS: FUROSEMIDE 40 MG (LASIX) TAB PO SCH (09:31)
[2019-07-19] MEDS: polyethylene glycoL POWDER 17 GM (MIRALAX) PACK PO SCH ×2 (09:32→21:07)
--- NOTE | 2019-07-19 09:44 | NUR ---
Late entry: Patient received Privacy Act Statement and Data Collection Information Summary at admission.
--- NOTE | 2019-07-19 09:53 | PM&R Progress Note ---
Subjective HPI/CC On Admission Date Seen by Provider: Jul 19, 2019 Time Seen by Provider: 09:30 Subjective/Events-last exam Pt doing very well Edema in lower extremities, SARAH wraps are really helping Set for DC on Wednesday Lasix home medication being maintained Will DC fluid restriction since sodium level is 137 Overall is doing very well. Checked meds and labs Reviewed therapy notes Conferred with burrer hand of Systems General: Fatigue Cardiovascular: Edema Objective Exam Vital Signs Vital Signs Date Time Temp Pulse Resp B/P (MAP) Pulse Ox O2 Delivery O2 Flow Rate FiO2 07/19/19 17:18 36.9 64 18 132/66 (88) 97 Nasal Cannula 3.00 Capillary Refill : Less Than 3 Seconds General Appearance: No Apparent Distress, WD/WN, Chronically ill, Obese HEENT: PERRL/EOMI, Normal ENT Inspection, Pharynx Normal Neck: Full Range of Motion, Normal Inspection, Non Tender, Supple, Carotid Bruit Respiratory: Chest Non Tender, Lungs Clear, Normal Breath Sounds, No Accessory Muscle Use, No Respiratory Distress Cardiovascular: Regular Rate, Rhythm, No Gallop, No JVD, No Murmur, Normal Peripheral Pulses Gastrointestinal: Normal Bowel Sounds, No Organomegaly, No Pulsatile Mass, Non Tender, Soft Back: Normal Inspection, No CVA Tenderness, No Vertebral Tenderness Extremity: Normal Capillary Refill, Normal Inspection, Normal Range of Motion, Non Tender, No Calf Tenderness, Pedal Edema Neurologic/Psychiatric: Alert, Oriented x3, No Motor/Sensory Deficits, Normal Mood/Affect, solar electric/photovoltaic installer II-XII Norm as Tested, Motor Weakness (generalized weakness all extremities) Skin: Normal Color, Warm/Dry Lymphatic: No Adenopathy Results/Procedures Lab Patient resulted labs reviewed. FIM Transfers Therapy Code Descriptions/Definitions Functional [place] Measure: 0=Not Assessed/NA 4=Minimal Assistance 1=Total Assistance 5=Supervision or Setup 2=Maximal Assistance 6=Modified [place] 3=Moderate Assistance 7=Complete IndependenceSCALE: Activities may be completed with or without assistive devices. 7-Fvnvwqwlyb-qwycjtf completes the activity by him/herself with no assistance from a helper. 5-Set-up or Clean-up Assistance-helper sets up or cleans up; patient completes activity. [place] assists only prior to or following the activity. 4-Supervision or Touching Assistance-helper provides verbal cues and/or touching/steadying and/or contact guard assistance as patient completes activity. Assistance may be provided throughout the activity or intermittently. 3-Partial/Moderate Assistance-helper does LESS THAN HALF the effort. [place] lifts, holds or supports trunk or limbs, but provides less than half the effort. 2-Substantial/Maximal Assistance-helper does MORE THAN HALF the effort. [place] lifts or holds trunk or limbs and provides more than half the effort. 1-Ollrnvqoz-uzagpv does ALL the effort. Patient does none of the effort to com plete the activity. Or, the assistance of 2 or more helpers is required for the patient to complete the activity. If activity was not attempted, code reason: 7-Patient Refused. 9-Not Applicable-not attempted and the patient did not perform the activity before the current illness, exacerbation or injury. 10-Not Attempted due to Environmental Limitations-(lack of equipment, weather restraints, etc.). 88-Not Attempted due to Medical Conditions or Safety Concerns. Roll Left to Right (QC): 6 Sit to Lying (QC): 6 Sit to Stand (QC): 5 Chair/Gcw-gt-Vnuzu Xfer(QC): 6 Car Transfer (QC): 4 (Patient attempted putting feet in car first when instructed to perform like she normally does.) Gait Training Does the Patient Walk?: Yes Distance: 150 x2, 75 Walk 10 feet (QC): 5 Walk 50 ft with 2 Turns(QC): 4 Walk 150 ft (QC): 4 Walking 10ft/uneven surface-QC: 4 Gait Persons Needed: 1 Gait Assistive Device: FWW Wheelchair Training Does the Pt Use a Wheelchair?: No Stair Training #of Steps: 1 1 Step (curb) (QC): 4 Balance Picking up an Object (QC): 4 ADL-Treatment Eating (QC): 6 Oral Hygiene (QC): 6 Shower/Bathe Self (QC): 5 Upper Body Dressing (QC): 6 Lower Body Dressing (QC): 5 On/Off Footwear (QC): 5 Toileting Hygiene (QC): 6 Toilet Transfer (QC): 6 Assessment/Plan Assessment and Plan Assess & Plan/Chief Complaint Assessment: Cardiac debility s/p NSTEMI Severe debilitating nausea and vomiting now resolved since DC Amiodarone and Lipitor Severe deconditioning CAD w/recent stent placement AF OAC CRI Hyponatremia Delirium resolved Edema Plan: IVF HL Fluid restriction DC Monitor closely SARAH wraps DC Wednesday (1) Debility Status: Acute (2) NSTEMI (non-ST elevated myocardial infarction) Status: Acute (3) Angina at rest Status: Acute (4) Atrial fibrillation Status: Chronic (5) CAD (coronary artery disease) Status: Chronic (6) Hypothyroidism Status: Chronic (7) HTN (hypertension) Status: Chronic (8) HLD (hyperlipidemia) Status: Chronic (9) Acute kidney insufficiency Status: Resolved Resolution Date/Time: 07/10/19 @ 16:43 (10) DVT prophylaxis Status: Acute (11) CHF (congestive heart failure) Status: Acute (12) Duodenitis Status: Acute (13) Dyspepsia Status: Acute (14) Elevated brain natriuretic peptide (BNP) level Status: Acute ALICIA GASCA DO Jul 19, 2019 09:53
--- NOTE | 2019-07-19 10:29 | Occupational Ther Daily Note ---
OT Current Status-Daily Note Subjective Pt sitting in chair, agrees to treatment. No c/o pain. Mental Status/Objective Attachments: Oxygen ADL-Treatment Pt sit to stand without assist. Gait to restroom with FWW. Pt completed toilet transfer and toileting with modified independence. Pt declined shower today, but would like a sponge bath. Pt retrieved clothing from closet using FWW. Pt sat at sink and completed sponge bath without assist. Pt did not address lower legs and feet secondary to SARAH wraps. Pt doffed/donned pullover shirt independently. Able to thread bilateral LE into pants. Stood with good balance during pant hike. Pt completed oral care and brushed hair independently. Pt returned dirty clothing to closet without assist. Therapy Code Descriptions/Definitions Functional [place] Measure: 0=Not Assessed/NA 4=Minimal Assistance 1=Total Assistance 5=Supervision or Setup 2=Maximal Assistance 6=Modified [place] 3=Moderate Assistance 7=Complete IndependenceSCALE: Activities may be completed with or without assistive devices. 8-Xcjtifdfmv-vbyktpk completes the activity by him/herself with no assistance from a helper. 5-Set-up or Clean-up Assistance-helper sets up or cleans up; patient completes activity. [place] assists only prior to or following the activity. 4-Supervision or Touching Assistance-helper provides verbal cues and/or touching/steadying and/or contact guard assistance as patient completes activity. Assistance may be provided throughout the activity or intermittently. 3-Partial/Moderate Assistance-helper does LESS THAN HALF the effort. [place] lifts, holds or supports trunk or limbs, but provides less than half the effort. 2-Substantial/Maximal Assistance-helper does MORE THAN HALF the effort. [place] lifts or holds trunk or limbs and provides more than half the effort. 4-Ipduisjta-keksag does ALL the effort. Patient does none of the effort to complete the activity. Or, the assistance of 2 or more helpers is required for the patient to complete the activity. If activity was not attempted, code reason: 7-Patient Refused. 9-Not Applicable-not attempted and the patient did not perform the activity before the current illness, exacerbation or injury. 10-Not Attempted due to Environmental Limitations-(lack of equipment, weather restraints, etc.). 88-Not Attempted due to Medical Conditions or Safety Concerns. Oral Hygiene (QC): 6 Upper Body Dressing (QC): 6 Lower Body Dressing (QC): 6 Toileting Hygiene (QC): 6 Toilet Transfer (QC): 6 Other Treatment Gait to therapy gym with FWW. Assist only to manage O2 tank. Pt completed putty activity with bilateral hands to increase strength and manipulation skills. Pt able to remove small beads from moderate resistance putty without assist. Pt completed fine motor task with nuts and bolts using bilateral UE with 1# weights in place to increase strength and coordination skills. Pt returned to room, sitting in chair with needs met after session. OT Prison Goals Electrical Parts Reconditioner Goals Time Frame: Aug 01, 2019 Eating (QC): 6 Oral Hygiene (QC): 6 Toileting Hygiene (QC): 6 Shower/Bathe Self (QC): 5 Upper Body Dressing (QC): 6 Lower Body Dressing (QC): 6 On/Off Footwear (QC): 6 Additional Goals: 1-Demonstrate ADL Tasks, 2-Verbalize Understanding, 3- ImproveStrength/Abdiel 1=Demonstrate adherence to instructed precautions during ADL tasks. 2=Patient will verbalize/demonstrate understanding of assistive devic es/modifications for ADL. 3=Patient will improve strength/tolerance for activity to enable patient to perform ADL's. OT Education/Plan Discharge Recommendations Plan/Recommendations: Continue POC Treatment Plan/Plan of Care Patient would benefit from OT for education, treatment and training to promote independence in ADL's, mobility, safety and/or upper extremity function for ADL's. Plan of Care: ADL Retraining, Functional Mobility, Group Exercise/Act as Ind, UE Funct Exercise/Act Treatment Duration: Aug 01, 2019 Frequency: At least 5 of 7 days/Wk (IRF) Estimated Hrs Per Day: 1.5 hours per day Agreement: Yes Rehab Potential: Fair Time/GCodes Start Time: 08:15 Stop Time: 09:15 Total Time Billed (hr/min): 60 Billed Treatment Time 1 visit, ADLx3(40minutes), Ex(20minutes) NANDO LOAIZA OT Jul 19, 2019 10:29
--- NOTE | 2019-07-19 12:06 | Physical Therapy Daily Note ---
PT Daily Note-Current Subjective Pt sitting in recliner upon arrival. Pt agrees to PT for QC scoring for D/C. Pain Location: No Pain Reported Mental Status Patient Orientation: Person, Place, Situation Attachments: Oxygen Transfers SCALE: Activities may be completed with or without assistive devices. 4-Wlibixsdbl-mrggwrp completes the activity by him/herself with no assistance from a helper. 5-Set-up or Clean-up Assistance-helper sets up or cleans up; patient completes activity. [place] assists only prior to or following the activity. 4-Supervision or Touching Assistance-helper provides verbal cues and/or touching/steadying and/or contact guard assistance as patient completes activity. Assistance may be provided throughout the activity or intermittently. 3-Partial/Moderate Assistance-helper does LESS THAN HALF the effort. [place] lifts, holds or supports trunk or limbs, but provides less than half the effort. 2-Substantial/Maximal Assistance-helper does MORE THAN HALF the effort. [place] lifts or holds trunk or limbs and provides more than half the effort. 9-Tkebwuckx-fuhsip does ALL the effort. Patient does none of the effort to complete the activity. Or, the assistance of 2 or more helpers is required for the patient to complete the activity. If activity was not attempted, code reason: 7-Patient Refused. 9-Not Applicable-not attempted and the patient did not perform the activity before the current illness, exacerbation or injury. 10-Not Attempted due to Environmental Limitations-(lack of equipment, weather restraints, etc.). 88-Not Attempted due to Medical Conditions or Safety Concerns. Sit to Stand (QC): 6 Chair/Qsl-dm-Eabjm Xfer(QC): 6 Toilet Transfer (QC): 6 Car Transfer (QC): 6 Weight Bearing Right Lower Extremity: Right Full Weight Bearing Left Lower Extremity: Left Full Weight Bearing Gait Training Does the Patient Walk?: Yes Distance: 150' x2 Walk 10 feet (QC): 5 Walk 50 ft with 2 Turns(QC): 5 Walk 150 ft (QC): 5 Gait Persons Needed: 1 Gait Assistive Device: FWW Wheelchair Training Does the Pt Use a Wheelchair?: No Stair Training 1 Step (curb) (QC): 9 4 Steps (QC): 9 12 Steps (QC): 9 Exercises Standing: Hamstring curls, Heel/toe raises, Marching, Mini squats, Weight shifts Standing Reps: 15 NuStep Minutes: 12 NuStep Workload: 4 Treatments Pt transfers to standing and uses restroom before leaving room for Rx. Pt ambulates in hallway then uses NuStep for 12m at WL 4. Pt completes Standing Ex at //bars. Pt returns to room to rest in recliner. SW & KENYA were present to talk to pt at end of Rx. Pt has all needs met, call light in hand. Assessment Current Status: Good Progress Pt tolerated Rx well. PT Short Term Goals Short Term Goals Time Frame: Jul 11, 2019 PT Senior Quality Assurance Specialist Goals Custodial Goals PT Custodial Goals Time Frame: Aug 05, 2019 Roll Left & Right (QC): 6 Sit to Lying (QC): 6 Lying-Sitting on Side/Bed(QC): 6 Sit to Stand (QC): 6 Chair/Dff-kz-Wywjp Xfer(QC): 6 Toilet Transfer (QC): 6 Car Transfer (QC): 6 Does the Patient Walk: Yes Walk 10 feet (QC): 6 Walk 50ft with 2 Turns (QC): 6 Walk 150 ft (QC): 6 Walking 10ft on Uneven Surface: 6 1 Step (curb) (QC): 6 Does the Pt use WC or Scooter?: No PT Plan Problem List Problem List: Activity Tolerance, Functional Strength Treatment/Plan Treatment Plan: Continue Plan of Care Treatment Plan: Bed Mobility, Concurrent Therapy, Education, Functional Activity Abdiel, Functional Strength, Group Therapy, Gait, Safety, Therapeutic Exercise, Transfers Treatment Duration: Aug 05, 2019 Frequency: At least 5 of 7 days/Wk (IRF) Estimated Hrs Per Day: 1.5 hours per day Patient and/or Family Agrees t: Yes Safety Risks/Education Patient Education: Gait Training, Transfer Techniques, Correct Positioning, Safety Issues Teaching Recipient: Patient Teaching Methods: Discussion Response to Teaching: Verbalize Understanding Time/GCodes Time In: 1000 Time Out: 1100 Total Billed Treatment Time: 60 Total Billed Treatment 1, GT (15m), EX x2 (30m) & FA (15m) NIKO HOFFMAN [address] RESEARCH ENGINEER Jul 19, 2019 12:06
--- NOTE | 2019-07-19 12:57 | Occupational Ther Daily Note ---
OT Current Status-Daily Note Subjective Pt sitting in chair, agrees to therapy. ADL-Treatment Pt transferred to toilet with modified independence. Able to complete toileting hygiene and clothing management with modified independence. Stood at sink to wash hands without assist. Therapy Code Descriptions/Definitions Functional [place] Measure: 0=Not Assessed/NA 4=Minimal Assistance 1=Total Assistance 5=Supervision or Setup 2=Maximal Assistance 6=Modified [place] 3=Moderate Assistance 7=Complete IndependenceSCALE: Activities may be completed with or without assistive devices. 7-Fxxzqfdffe-pxxrcye completes the activity by him/herself with no assistance from a helper. 5-Set-up or Clean-up Assistance-helper sets up or cleans up; patient completes activity. [place] assists only prior to or following the activity. 4-Supervision or Touching Assistance-helper provides verbal cues and/or touching/steadying and/or contact guard assistance as patient completes activity. Assistance may be provided throughout the activity or intermittently. 3-Partial/Moderate Assistance-helper does LESS THAN HALF the effort. [place] lifts, holds or supports trunk or limbs, but provides less than half the effort. 2-Substantial/Maximal Assistance-helper does MORE THAN HALF the effort. [place] lifts or holds trunk or limbs and provides more than half the effort. 2-Zjmetsdjj-takith does ALL the effort. Patient does none of the effort to complete the activity. Or, the assistance of 2 or more helpers is required for the patient to complete the activity. If activity was not attempted, code reason: 7-Patient Refused. 9-Not Applicable-not attempted and the patient did not perform the activity before the current illness, exacerbation or injury. 10-Not Attempted due to Environmental Limitations-(lack of equipment, weather restraints, etc.). 88-Not Attempted due to Medical Conditions or Safety Concerns. Toileting Hygiene (QC): 6 Toilet Transfer (QC): 6 Other Treatment Gait to therapy gym with FWW, no LOB noted. Assist for O2 tank. Pt completed standing carter bag toss to increase activity tolerance and standing balance. Pt demonstrates good balance during activity. One seated rest break taken. Pt demonstrated UE exercises with yellow theraband. Pt able to recall and perform exercises that were completed in previous therapy sessions. Bilateral hand document review specialist exercises with moderate resistance therapy foam to increase document review specialist strength for functional tasks. Pt returned to room, sitting in chair with needs met after session. OT Fpc Goals Hourly Associate Goals Time Frame: Aug 01, 2019 Eating (QC): 6 Oral Hygiene (QC): 6 Toileting Hygiene (QC): 6 Shower/Bathe Self (QC): 5 Upper Body Dressing (QC): 6 Lower Body Dressing (QC): 6 On/Off Footwear (QC): 6 Additional Goals: 1-Demonstrate ADL Tasks, 2-Verbalize Understanding, 3- ImproveStrength/Abdiel 1=Demonstrate adherence to instructed precautions during ADL tasks. 2=Patient will verbalize/demonstrate understanding of assistive devices/modifications for ADL. 3=Patient will improve strength/tolerance for activity to enable patient to perform ADL's. OT Education/Plan Discharge Recommendations Plan/Recommendations: Continue POC Treatment Plan/Plan of Care Patient would benefit from OT for education, treatment and training to promote independence in ADL's, mobility, safety and/or upper extremity function for ADL's. Plan of Care: ADL Retraining, Functional Mobility, Group Exercise/Act as Ind, UE Funct Exercise/Act Treatment Duration: Aug 01, 2019 Frequency: At least 5 of 7 days/Wk (IRF) Estimated Hrs Per Day: 1.5 hours per day Agreement: Yes Rehab Potential: Fair Time/GCodes Start Time: 11:00 Stop Time: 11:30 Total Time Billed (hr/min): 30 Billed Treatment Time 1 visit, FA(15minutes), EX(15minutes) NANDO LOAIZA OT Jul 19, 2019 12:57
[2019-07-19 13:30] VITALS: BP 143/74
--- NOTE | 2019-07-19 14:06 | Physical Therapy Daily Note ---
PT Daily Note-Current Subjective Pt sitting in recliner upon arrival. Pt agrees to PT for finishing QC scoring. Pain Location: No Pain Reported Mental Status Patient Orientation: Person, Place, Time, Situation Attachments: Oxygen (2L) Transfers SCALE: Activities may be completed with or without assistive devices. 3-Pwoyzmiuwx-ggbrvgn completes the activity by him/herself with no assistance from a helper. 5-Set-up or Clean-up Assistance-helper sets up or cleans up; patient completes activity. [place] assists only prior to or following the activity. 4-Supervision or Touching Assistance-helper provides verbal cues and/or touching/steadying and/or contact guard assistance as patient completes activity. Assistance may be provided throughout the activity or intermittently. 3-Partial/Moderate Assistance-helper does LESS THAN HALF the effort. [place] lifts, holds or supports trunk or limbs, but provides less than half the effort. 2-Substantial/Maximal Assistance-helper does MORE THAN HALF the effort. [place] lifts or holds trunk or limbs and provides more than half the effort. 9-Wimqquanv-mmvygr does ALL the effort. Patient does none of the effort to complete the activity. Or, the assistance of 2 or more helpers is required for the patient to complete the activity. If activity was not attempted, code reason: 7-Patient Refused. 9-Not Applicable-not attempted and the patient did not perform the activity before the current illness, exacerbation or injury. 10-Not Attempted due to Environmental Limitations-(lack of equipment, weather restraints, etc.). 88-Not Attempted due to Medical Conditions or Safety Concerns. Roll Left & Right (QC): 6 Sit to Lying (QC): 6 Lying to Sitting/Side of Bed(Q: 6 Sit to Stand (QC): 6 Chair/Sgx-ze-Iukpb Xfer(QC): 6 Weight Bearing Right Lower Extremity: Right Full Weight Bearing Left Lower Extremity: Left Full Weight Bearing Gait Training Does the Patient Walk?: Yes Distance: 150', 200' Walk 10 feet (QC): 6 Walk 50 ft with 2 Turns(QC): 6 Walk 150 ft (QC): 6 Walking 10ft/uneven surface-QC: 6 Gait Persons Needed: 1 Gait Assistive Device: FWW Wheelchair Training Does the Pt Use a Wheelchair?: No Stair Training 1 Step (curb) (QC): 9 4 Steps (QC): 9 12 Steps (QC): 9 Balance Picking up an Object (QC): 6 Treatments Pt completes QC scoring (see above). Pt ambulates extended distance for activity tolerance. Pt returns to room and rests in recliner, all needs met. Pt is made Ad darline in room, nursing agrees. Assessment Current Status: Good Progress Pt tolerates Rx well. PT Short Term Goals Short Term Goals Time Frame: Jul 11, 2019 PT Care Home Goals Care Home Goals PT Sofa Cover Inspector Goals Time Frame: Aug 05, 2019 Roll Left & Right (QC): 6 Sit to Lying (QC): 6 Lying-Sitting on Side/Bed(QC): 6 Sit to Stand (QC): 6 Chair/Klr-kh-Ckwsh Xfer(QC): 6 Toilet Transfer (QC): 6 Car Transfer (QC): 6 Does the Patient Walk: Yes Walk 10 feet (QC): 6 Walk 50ft with 2 Turns (QC): 6 Walk 150 ft (QC): 6 Walking 10ft on Uneven Surface: 6 1 Step (curb) (QC): 6 Does the Pt use WC or Scooter?: No PT Plan Problem List Problem List: Activity Tolerance Treatment/Plan Treatment Plan: Continue Plan of Care Treatment Plan: Bed Mobility, Concurrent Therapy, Education, Functional Activity Abdiel, Functional Strength, Group Therapy, Gait, Safety, Therapeutic Exercise, Transfers Treatment Duration: Aug 05, 2019 Frequency: At least 5 of 7 days/Wk (IRF) Estimated Hrs Per Day: 1.5 hours per day Patient and/or Family Agrees t: Yes Safety Risks/Education Patient Education: Gait Training, Correct Positioning, Safety Issues Teaching Recipient: Patient Teaching Methods: Discussion Response to Teaching: Verbalize Understanding Time/GCodes Time In: 1330 Time Out: 1400 Total Billed Treatment Time: 30 Total Billed Treatment 1, FA (10m) & GT (20m) NIKO HOFFMAN PTA Jul 19, 2019 14:06
--- NOTE | 2019-07-19 14:24 | NUR ---
"RD ASSESSMENT PMHx: afib; CAD; HTN; CKD; DM; hypercholesterolemia; PT INTERACTION: Pt was awake and pleasant during nutrition follow-up. Pt states she has been eating well since last assessment. Note avg PO intake of 65% of meals x4d, per chart review. Pt states no issues with n/v/c/d since last assessment. Note last BM was 07/19 and pt currently on bowel regimen of colace BID; miralax BID; and senna BID, per chart review. ABNORMAL NUTRITION-RELATED LAB VALUES LOW: K 3.5; Pro 5.3; alb 3.0 HIGH: Est. kcal needs: 8395-8289 kcal | 15-18 kcal/kg Est. Pro needs: 74-93 g Pro | 0.8-1.0 g Pro/kg PES STATEMENT: Inadequate oral intake (NI-2.1) related to loss of appetite as evidenced by pt interview | avg PO intake 65% of meals x4d INTERVENTION: Continue with current diet order of Heart Healthy diet. Pt may benefit from nutrition supplementation if PO intake declines. Will continue to follow and reassess as pt needs and status change. MONITOR/EVALUATE: PO Intake; Plan of Care; Hydration Status; Weight Status; Lab Values Vonnie Terry, MS, RD, LD"
--- NOTE | 2019-07-19 15:17 | NUR ---
PT state that they have instructed pt that she can be up ad darline in her room, w FWW.
--- NOTE | 2019-07-19 15:45 | NUR ---
CM/SS WEEKLY CONFERENCE TEAM SUMMARY and DISCHARGE PLANNING Met with patient and her KENYA/Jett Torres this a.m. and presented their input during Team meeting. This afternoon, reviewed Summary with patient and all parties are in agreement patient will discharge 07/21/19, back home where she has lived with her daughter/KENYA for about 10 years. IMM2 presented, signed charted. Patient enthused about returning home, no intention to appeal voiced. Medicare Compare information for Home Health Agencies presented to patient, her decision remains to resume services with [facility]. DME: Patient KENYA is securing a tub transfer bench today, OT has recommended a wide sock aid. RT will perform O2 SAT study tomorrow, anticipate continuous O2 upgrade. Filler Sifter Machine will update her established agency, [facility], so that they can provide what is needed at her home to accommodate. Patient has all other equipment necessary for her care. HHC: Resume with [facility], RN and PT. Finalize discharge for Wednesday when orders received.
[2019-07-19] MEDS: RIVAROXABAN 20 MG TABLET (XARELTO) PO SCH (17:08)
[2019-07-19 17:18] VITALS: BP 132/66
[2019-07-19] MEDS: MELATONIN 3 MG TABLET PO PRN (20:35)
[2019-07-20 05:06] VITALS: BP 131/57
[2019-07-20] MEDS: LEVOTHYROXINE 25 MCG (LEVOTHROID) TAB PO SCH (05:16)
[2019-07-20] MEDS: SUCRALFATE 1 GM (CARAFATE) TAB PO SCH ×4 (06:05→20:22)
[2019-07-20] MEDS ORDERED: SUCR1TAB PO (06:34)
--- NOTE | 2019-07-20 06:35 | D/C HH Face to Face Order ---
D/C Face to Face Orders Reconcile Patient Problems Problems Reviewed?: Yes Instructions for Patient Home Health Patient Instructions/FollowUp: [facility] [address] Reyez as scheduled Physician to follow Patient: [facility] Discharge Diet for Home: Cardiac Diet Patient Problems: CAD AF Goals for Patient: [place] Patient Data-Allergies,Ht & Wt Patient Allergies: Coded Allergies: Penicillins (Verified Allergy, Unknown, 07/21/18) propoxyphene (Verified Allergy, Unknown, 07/21/18) Uncoded Allergies: AMIO (Adverse Reaction, Intermediate, Nausea, 07/12/19) Height (Feet): 5 Height (Inches): 4.00 Weight (Pounds): 190 Weight (Ounces): 0.7 Home Health Need/Face to Face Date of Face to Face: Jul 20, 2019 Clinical Findings: Generalized weakness and fatigue, Muscle weakness, Unsteady gait I have seen Pt dswy-qn-eeko: Yes Discharged To: Home Diagnosis/Conditions: CAD AF Patient is Homebound due to: CognItive deficits, Muscle weakness, Shortness of breath/distress Homebound Status Due to the above stated illness, injury or surgical procedure (medical condition or diagnosis) and associated clinical findings, the patient is homebound because of his/her inability to leave home except with aid of a supportive device and/or person AND leaving the home requires a considerable and taxing effort or is medically contraindicated. Pt req the following assistanc: Walker Home Health Nursing Orders Home Health Services Order: Nursing Services, [facility]-Evaluate & Treat, Physical Therapy-Evaluate & Treat Certify Stmt I certify that this patient is under my care and that I, a nurse practitioner or a physician; a study assistant working with me, had a face to face encounter that - meets the physician face to face encounter requirements with this patient as dated. ALICIA GASCA DO Jul 20, 2019 06:35
--- NOTE | 2019-07-20 08:00 | NUR ---
STATES FEELS READY FOR DISCHARGE TOMORROW. DENIES PAIN AND NAUSEA.
[2019-07-20] MEDS: RT-ADVAIR HFA 45/21 MCG PER PUFF IH SCH ×2 (08:07→20:08)
--- NOTE | 2019-07-20 08:31 | Cardiology Progress Note ---
Subjective Date Seen by Provider: Jul 20, 2019 Time Seen by Provider: 08:30 Subjective/Events-last exam Patient in BR doing ADL's. Denies any chest pain or dyspnea. Review of Systems General: No Chills, No Night Sweats, No Fatigue, No Malaise, No Appetite, No Other HEENT: No Head Aches, No Visual Changes, No Eye Pain, No Ear Pain, No Dysphasia, No Sinus Congestion, No Post Nasal Drip, No Sore Throat, No Other Pulmonary: No Dyspnea, No Cough, No Pleuritic Chest Pain, No Other Cardiovascular: No: Chest Pain, Palpitations, Orthopnea, Paroxysmal Noc. Dyspnea, Edema, Lt Headedness, Other Objective-Cardiology Exam Last Set of Vital Signs Vital Signs 07/20/19 07/20/19 07/20/19 05:06 09:00 10:14 Temp 36.6 Pulse 99 Resp 18 B/P (MAP) 131/57 (81) Pulse Ox 98 O2 Delivery Nasal Cannula O2 Flow Rate 2.00 Capillary Refill : Less Than 3 Seconds I&O Intake and Output 07/20/19 00:00 Intake Total 1550 ml Output Total 1350 ml Balance 200 ml Intake Oral 1550 ml Output Urine Total 1350 ml # Bowel Movements 3 General: Alert, Oriented X3, Cooperative HEENT: Atraumatic, PERRLA Neck: Supple, No JVD, No Thyromegaly Lungs: Clear to Auscultation, Normal Air Movement Heart: Regular Rate, Normal S1, Normal S2 Abdomen: Soft, No Tenderness Extremities: No Clubbing, Other (trace edema) Skin: No Rashes, No Significant Lesion Neuro: Normal Speech, Cranial Nerves 3-12 NL Psych/Mental Status: Mental Status NL, Mood NL A/P-Cardiology Admission Diagnosis Chest pain PAF CAD HTN Assessment/Plan Chest pain, mild elevation in troponin, diffuse abdominal pain, non-ST elevation myocardial infarction due to small vessel disease. Patient reports improvement of chest pain. Medical therapy is recommended. Abdominal pain, nausea and vomiting, diffuse discomfort, better after discontinuation of amiodarone and Lipitor, patient had episode of nausea after amiodarone given, discontinued amiodarone and Lipitor at this time and consider this medication as an allergy to the patient. Anxiety, depression, continue on Zoloft and monitor Elevated BNP, echocardiogram showed left ventricular hypertrophy with hyperactive ventricle, gradient across the left ventricular outflow tract probably due to hypovolemia, chronic left ventricular diastolic dysfunction, hypertensive heart disease, clinically improved. Coronary artery disease, history of multiple interventions in the past, had a total of 3 stents. Underwent cardiac catheterization on November 15, 2018 revealing moderate stenosis at the ostium of the right coronary artery, heavily calcified. 2 stents in the mid right coronary artery are patent with small vessel disease distally. Calcified left main coronary artery is moderate stenosis, nonobstructive disease. Patent stents in the mid circumflex artery with no obstructive disease, mild disease in LAD. Underwent cardiac catheterization on June 29, 2019 with balloon angioplasty to the mid right coronary artery and stenting to the ostium of the right coronary artery using Maryann 3 x 15 mm stent expanded to 3.25 mm with excellent results, still have moderate stenosis at the mid left main, mid LAD and mid circumflex artery with small vessel disease. Persistent atrial fibrillation, maintained on Xarelto, amiodarone discontinued, continue to monitor High risk of bleed, patient is maintained on aspirin, Plavix and Xarelto, I will consider stopping Xarelto if needed Peripheral edema, better at this time. Upper respiratory infection, recently diagnosed and treated with steroids as outpatient. Continue to monitor. Hypertension, continue on home medication Hyperlipidemia, continue holding Lipitor. Monitor tolerance and response Carotid artery stenosis, mild bilateral nonobstructive disease per carotid duplex done December 2018 Prediabetes Patient was seen and evaluated with Cortney, examination performed, management plan was discussed, agree with the current scribed note, I made few changes to the note using Italic font Patient was seen at bedside, sitting comfortably, feeling better. Discussed her medication on discharge and reported that her daughter will be available tomorrow to review the medication No further episodes of abdominal pain or nausea or vomiting. Clinical Quality Measures DVT/VTE Risk/Contraindication: Risk Factor Score Per Nursin RFS Level Per Nursing on Admit: 4+=Very High CORTNEY POWERS Jul 20, 2019 8:31 am GEOFF THOMSON MD Jul 20, 2019 4:44 pm
[2019-07-20] MEDS: ASPIRIN E.C. 81 MG (ECOTRIN) TAB PO SCH (08:38)
[2019-07-20] MEDS: DOCUSATE SODIUM 100 MG (COLACE) CAP PO SCH ×2 (08:38→20:21)
[2019-07-20] MEDS: CLOPIDOGREL 75 MG (PLAVIX) TABLET PO SCH (08:38)
[2019-07-20] MEDS: PANTOPRAZOLE 40 MG (PROTONIX) TAB PO SCH (08:38)
[2019-07-20] MEDS: SENNA W/DOCUSATE (SENOKOT S) TABLET PO SCH ×2 (08:38→20:22)
[2019-07-20] MEDS: FUROSEMIDE 40 MG (LASIX) TAB PO SCH (08:39)
[2019-07-20] MEDS: BENZONATATE 100 MG (TESSALON) CAPSULE PO SCH ×3 (08:39→20:21)
[2019-07-20] MEDS: MAGNESIUM OXIDE (MAG-OX)400 MG TAB PO SCH (08:39)
[2019-07-20] MEDS: KCL 20 MEQ TAB (K-DUR) PO SCH (08:39)
[2019-07-20] MEDS: METOCLOPRAMIDE 5 MG (REGLAN) TAB PO SCH ×2 (08:39→20:22)
[2019-07-20] MEDS: polyethylene glycoL POWDER 17 GM (MIRALAX) PACK PO SCH ×2 (08:44→20:22)
--- NOTE | 2019-07-20 09:04 | Occupational Ther Daily Note ---
OT Current Status-Daily Note Subjective Pt alert, sitting in recliner. Pt agrees to therapy. No c/o pain at this time. Mental Status/Objective Patient Orientation: Person, Place, Time, Situation Attachments: Oxygen ADL-Treatment Pt completed toileting transfer, hygiene and clothing manipulation using FWW, mod I. Pt stood at sink to complete oral care and grooming. Pt able to retrieve clothing using FWW. Manipulates O2 tubing by self while ambulating throughout room. Pt transfers into shower using FWW, shower bench and grabbars. Completes shower using hand held shower, shower bench and grabbars, mod I. Pt completes own upper/lower body dressing, mod I. Doffs socks independently and dons socks using wide sock aide. Nrsg to address wraps for lower leg edema. Therapy Code Descriptions/Definitions Functional [place] Measure: 0=Not Assessed/NA 4=Minimal Assistance 1=Total Assistance 5=Supervision or Setup 2=Maximal Assistance 6=Modified [place] 3=Moderate Assistance 7=Complete IndependenceSCALE: Activities may be completed with or without assistive devices. 3-Fdqxkpstkd-yrhrkdy completes the activity by him/herself with no assistance from a helper. 5-Set-up or Clean-up Assistance-helper sets up or cleans up; patient completes activity. [place] assists only prior to or following the activity. 4-Supervision or Touching Assistance-helper provides verbal cues and/or touching/steadying and/or contact guard assistance as patient completes activity. Assistance may be provided throughout the activity or intermittently. 3-Partial/Moderate Assistance-helper does LESS THAN HALF the effort. Harris lifts, holds or supports trunk or limbs, but provides less than half the effort. 2-Substantial/Maximal Assistance-helper does MORE THAN HALF the effort. Harris lifts or holds trunk or limbs and provides more than half the effort. 7-Gefomkflk-sdwguw does ALL the effort. Patient does none of the effort to complete the activity. Or, the assistance of 2 or more helpers is required for the patient to complete the activity. If activity was not attempted, code reason: 7-Patient Refused. 9-Not Applicable-not attempted and the patient did not perform the activity before the current illness, exacerbation or injury. 10-Not Attempted due to Environmental Limitations-(lack of equipment, weather restraints, etc.). 88-Not Attempted due to Medical Conditions or Safety Concerns. Eating (QC): 6 (Pt demonstrates the ability to complete own meal set up and uses regular utensils to eat.) Oral Hygiene (QC): 6 Bathing Location: L Arm, R Arm, L Upper Leg, R Upper Leg, L Lower Leg (including foot), R Lower Leg (including foot), Chest, Abdomen, Buttocks, Perineal Area Shower/Bathe Self (QC): 6 Upper Body Dressing (QC): 6 Lower Body Dressing (QC): 6 On/Off Footwear: 6 Toileting Hygiene (QC): 6 Toilet Transfer (QC): 6 Other Treatment Pt demonstrates understanding of exercise program using light resistance theraband and medium resistance therapy sponge. Completes 4 exercises 3 sets 10 reps for theraband and 20 reps with therapy sponge (3 exercises). After session, pt sitting in recliner with call light/phone in reach. All needs met in room. Education OT Patient Education: Exercise program Teaching Recipient: Patient Teaching Methods: Demonstration Response to Teaching: Verbalize Understanding OT Group Insurance Special Agent Goals Assisted Goals Time Frame: Aug 01, 2019 Eating (QC): 6 (met) Oral Hygiene (QC): 6 (met) Toileting Hygiene (QC): 6 (met) Shower/Bathe Self (QC): 5 (met) Upper Body Dressing (QC): 6 (met) Lower Body Dressing (QC): 6 (met) On/Off Footwear (QC): 6 (met) Additional Goals: 1-Demonstrate ADL Tasks, 2-Verbalize Understanding, 3- ImproveStrength/Abdiel 1=Demonstrate adherence to instructed precautions during ADL tasks. 2=Patient will verbalize/demonstrate understanding of assistive devices/modifications for ADL. 3=Patient will improve strength/tolerance for activity to enable patient to perform ADL's. OT Education/Plan Problem List/Assessment Assessment: Decreased Activ Tolerance Discharge Recommendations Plan/Recommendations: Continue POC Treatment Plan/Plan of Care Patient would benefit from OT for education, treatment and training to promote independence in ADL's, mobility, safety and/or upper extremity function for ADL's. Plan of Care: ADL Retraining, Functional Mobility, Group Exercise/Act as Ind, UE Funct Exercise/Act Treatment Duration: Aug 01, 2019 Frequency: At least 5 of 7 days/Wk (IRF) Estimated Hrs Per Day: 1.5 hours per day Agreement: Yes Rehab Potential: Fair Time/GCodes Start Time: 08:15 Stop Time: 09:15 Total Time Billed (hr/min): 60 Billed Treatment Time 1 visit-ADL 4 (60 min) NIGHAT MAYORGA Jul 20, 2019 09:04
--- NOTE | 2019-07-20 09:10 | PM&R Progress Note ---
Subjective HPI/CC On Admission Date Seen by Provider: Jul 20, 2019 Time Seen by Provider: 09:15 Subjective/Events-last exam Planning for discharge tomorrow. Does not need home oxygen. Erasmo wraps are working very well for her. Home health will be set up. MiraLax will be taken at discharge and she has some at home so I will just have that on her list. Pt doing very well. Overall is doing very well. Checked meds and labs Reviewed therapy notes Conferred with offender employment specialist of Systems General: Fatigue Objective Exam Vital Signs Vital Signs Date Time Temp Pulse Resp B/P (MAP) Pulse Ox O2 Delivery O2 Flow Rate FiO2 07/20/19 20:20 Room Air 07/20/19 20:08 97 2.00 07/20/19 17:24 36.6 81 20 138/66 (90) Capillary Refill : Less Than 3 Seconds General Appearance: No Apparent Distress, WD/WN, Chronically ill, Obese HEENT: PERRL/EOMI, Normal ENT Inspection, Pharynx Normal Neck: Full Range of Motion, Normal Inspection, Non Tender, Supple, Carotid Bruit Respiratory: Chest Non Tender, Lungs Clear, Normal Breath Sounds, No Accessory Muscle Use, No Respiratory Distress Cardiovascular: Regular Rate, Rhythm, No Gallop, No JVD, No Murmur, Normal Peripheral Pulses Gastrointestinal: Normal Bowel Sounds, No Organomegaly, No Pulsatile Mass, Non Tender, Soft Back: Normal Inspection, No CVA Tenderness, No Vertebral Tenderness Extremity: Normal Capillary Refill, Normal Inspection, Normal Range of Motion, Non Tender, No Calf Tenderness, Pedal Edema Neurologic/Psychiatric: Alert, Oriented x3, No Motor/Sensory Deficits, Normal Mood/Affect, epic cupid analyst II-XII Norm as Tested, Motor Weakness (generalized weakness all extremities) Skin: Normal Color, Warm/Dry Lymphatic: No Adenopathy Results/Procedures Lab Patient resulted labs reviewed. FIM Transfers Therapy Code Descriptions/Definitions Functional [place] Measure: 0=Not Assessed/NA 4=Minimal Assistance 1=Total Assistance 5=Supervision or Setup 2=Maximal Assistance 6=Modified [place] 3=Moderate Assistance 7=Complete IndependenceSCALE: Activities may be completed with or without assistive devices. 2-Maqkwvurpj-vlnzxjy completes the activity by him/herself with no assistance from a helper. 5-Set-up or Clean-up Assistance-helper sets up or cleans up; patient completes activity. [place] assists only prior to or following the activity. 4-Supervision or Touching Assistance-helper provides verbal cues and/or touching/steadying and/or contact guard assistance as patient completes activity. Assistance may be provided throughout the activity or intermittently. 3-Partial/Moderate Assistance-helper does LESS THAN HALF the effort. [place] lifts, holds or supports trunk or limbs, but provides less than half the effort. 2-Substantial/Maximal Assistance-helper does MORE THAN HALF the effort. [place] lifts or holds trunk or limbs and provides more than half the effort. 6-Hsmalzbar-vssrtn does ALL the effort. Patient does none of the effort to complete the activity. Or, the assistance of 2 or more helpers is required for the patient to complete the activity. If activity was not attempted, code reason: 7-Patient Refused. 9-Not Applicable-not attempted and the patient did not perform the activity before the current illness, exacerbation or injury. 10-Not Attempted due to Environmental Limitations-(lack of equipment, weather restraints, etc.). 88-Not Attempted due to Medical Conditions or Safety Concerns. Roll Left to Right (QC): 6 Sit to Lying (QC): 6 Sit to Stand (QC): 6 Chair/Gjl-vr-Dkbqs Xfer(QC): 6 Car Transfer (QC): 6 Gait Training Does the Patient Walk?: Yes Distance: 150', 200' Walk 10 feet (QC): 6 Walk 50 ft with 2 Turns(QC): 6 Walk 150 ft (QC): 6 Walking 10ft/uneven surface-QC: 6 Gait Persons Needed: 1 Gait Assistive Device: FWW Wheelchair Training Does the Pt Use a Wheelchair?: No Stair Training #of Steps: 1 1 Step (curb) (QC): 9 4 Steps (QC): 9 12 Steps (QC): 9 Balance Picking up an Object (QC): 6 ADL-Treatment Eating (QC): 6 Oral Hygiene (QC): 6 Shower/Bathe Self (QC): 5 Upper Body Dressing (QC): 6 Lower Body Dressing (QC): 6 On/Off Footwear (QC): 5 Toileting Hygiene (QC): 6 Toilet Transfer (QC): 6 Assessment/Plan Assessment and Plan Assess & Plan/Chief Complaint Assessment: Cardiac debility s/p NSTEMI Severe debilitating nausea and vomiting now resolved since DC Amiodarone and Lipitor Severe deconditioning CAD w/recent stent placement AF OAC CRI Hyponatremia Delirium resolved Edema Plan: IVF HL Fluid restriction DC Monitor closely ERASMO wraps DC Wednesday (1) Debility Status: Acute (2) NSTEMI (non-ST elevated myocardial infarction) Status: Acute (3) Angina at rest Status: Acute (4) Atrial fibrillation Status: Chronic (5) CAD (coronary artery disease) Status: Chronic (6) Hypothyroidism Status: Chronic (7) HTN (hypertension) Status: Chronic (8) HLD (hyperlipidemia) Status: Chronic (9) Acute kidney insufficiency Status: Resolved Resolution Date/Time: 07/10/19 @ 16:43 (10) DVT prophylaxis Status: Acute (11) CHF (congestive heart failure) Status: Acute (12) Duodenitis Status: Acute (13) Dyspepsia Status: Acute (14) Elevated brain natriuretic peptide (BNP) level Status: Acute ALICIA GASCA DO Jul 20, 2019 09:10
--- NOTE | 2019-07-20 10:18 | NUR ---
PATIENT WAS WALKED FOR 6MIN. ON ROOM AIR SAT. DROPPED TO 96% AND REMAINED THERE THROUGHOUT THE WALK Addendum: 07/20/19 at 1020 by SALVADOR AVERY RT Amended: Links added.
--- NOTE | 2019-07-20 11:00 | NUR ---
DR. GASCA NOTIFIED OF AMBULATORY OXIMETRY RESULTS.
--- NOTE | 2019-07-20 11:03 | Physical Therapy Daily Note ---
PT Daily Note-Current Subjective Pt sitting in recliner upon arrival. Nurse has removed O2 for home O2 test with RT. RT & PT will walk pt to observe O2 level. Pt agrees to PT. Pain Location: No Pain Reported Mental Status Patient Orientation: Person, Place, Time, Situation Transfers SCALE: Activities may be completed with or without assistive devices. 9-Gjtjjceurp-ulrhbdt completes the activity by him/herself with no assistance from a helper. 5-Set-up or Clean-up Assistance-helper sets up or cleans up; patient completes activity. [place] assists only prior to or following the activity. 4-Supervision or Touching Assistance-helper provides verbal cues and/or touching/steadying and/or contact guard assistance as patient completes ac tivity. Assistance may be provided throughout the activity or intermittently. 3-Partial/Moderate Assistance-helper does LESS THAN HALF the effort. [place] lifts, holds or supports trunk or limbs, but provides less than half the effort. 2-Substantial/Maximal Assistance-helper does MORE THAN HALF the effort. [place] lifts or holds trunk or limbs and provides more than half the effort. 0-Lbbtozrgg-vnyqpm does ALL the effort. Patient does none of the effort to complete the activity. Or, the assistance of 2 or more helpers is required for the patient to complete the activity. If activity was not attempted, code reason: 7-Patient Refused. 9-Not Applicable-not attempted and the patient did not perform the activity before the current illness, exacerbation or injury. 10-Not Attempted due to Environmental Limitations-(lack of equipment, weather restraints, etc.). 88-Not Attempted due to Medical Conditions or Safety Concerns. Roll Left & Right (QC): 6 Sit to Lying (QC): 6 Lying to Sitting/Side of Bed(Q: 6 Sit to Stand (QC): 6 Chair/Ebj-ty-Zfmkc Xfer(QC): 6 Toilet Transfer (QC): 6 Weight Bearing Right Lower Extremity: Right Full Weight Bearing Left Lower Extremity: Left Full Weight Bearing Gait Training Does the Patient Walk?: Yes Distance: 300' Walk 10 feet (QC): 6 Walk 50 ft with 2 Turns(QC): 6 Walk 150 ft (QC): 6 Walking 10ft/uneven surface-QC: 6 Gait Persons Needed: 1 Gait Assistive Device: FWW Pt walks more independently and safely when not wearing O2. Wheelchair Training Does the Pt Use a Wheelchair?: No Stair Training Stair Training: Handrails/: 2 handrails #of Steps: 4 1 Step (curb) (QC): 6 4 Steps (QC): 6 12 Steps (QC): 9 Stairs: Pattern: Step to Exercises Supine Ex: Ankle pumps, Quad Set, Glut sets, Heel Slides, Straight leg raise, Hip abd/add Supine Reps: 10 Seated Therapy Exercises: Ankle pumps, Long arc quads, Hip flexion, Kicking activity, Hip abd/add, Glut set Seated Reps: 10 Standing: Heel/toe raises, 3 way Ex=Flex, Abd, Ext, Marching, Mini squats, Weight shifts Treatments Pt completes walk (see above) for O2 home test with RT. O2 stays 96% or above so O2 is monitored by not needed during Rx. Pt completes 1 set of 4 steps, Seated EX, & Standing Ex at //bars. Pt ambulates back to room then completes Supine EX in bed, resting at end of Rx. Pt has all needs met, call light next to pt. Pt is Ad darline in room as of yesterday's Rx. Assessment Current Status: Good Progress Pt tolerates Rx well and excited for D/C tomorrow (07/21). PT Short Term Goals Short Term Goals Time Frame: Jul 11, 2019 PT Group Home Goals Group Home Goals PT Grain Ii Farmworker Goals Time Frame: Aug 05, 2019 Roll Left & Right (QC): 6 Sit to Lying (QC): 6 Lying-Sitting on Side/Bed(QC): 6 Sit to Stand (QC): 6 Chair/Ndr-ud-Psvzw Xfer(QC): 6 Toilet Transfer (QC): 6 Car Transfer (QC): 6 Does the Patient Walk: Yes Walk 10 feet (QC): 6 Walk 50ft with 2 Turns (QC): 6 Walk 150 ft (QC): 6 Walking 10ft on Uneven Surface: 6 1 Step (curb) (QC): 6 Does the Pt use WC or Scooter?: No PT Plan Problem List Problem List: Activity Tolerance Treatment/Plan Treatment Plan: Continue Plan of Care Treatment Plan: Bed Mobility, Concurrent Therapy, Education, Functional Activity Abdiel, Functional Strength, Group Therapy, Gait, Safety, Therapeutic Exercise, Transfers Treatment Duration: Aug 05, 2019 Frequency: At least 5 of 7 days/Wk (IRF) Estimated Hrs Per Day: 1.5 hours per day Patient and/or Family Agrees t: Yes Safety Risks/Education Patient Education: Gait Training, Transfer Techniques, Steps, Issued Written HEP, Correct Positioning, Safety Issues Teaching Recipient: Patient Teaching Methods: Discussion Response to Teaching: Verbalize Understanding Time/GCodes Time In: 1000 Time Out: 1100 Total Billed Treatment Time: 60 Total Billed Treatment 1, GT (15m) & EX x3 (45m) NIKO HOFFMAN POWERTRAIN DESIGN ENGINEER Jul 20, 2019 11:02
--- NOTE | 2019-07-20 11:36 | NUR ---
CM/SS CONCURRENT NOTE Patient does not require supplement O2. C: Faxed clinical information to [facility] as planned for resume of services, RN and PT. Discharge tomorrow.
[2019-07-20] MEDS ORDERED: POLY17PO31 PO (12:39)
--- NOTE | 2019-07-20 14:14 | Therapy Group Daily Note ---
Therapy Daily Group Note Patient Education Topic Other List Below (handwashing, AD for walker) Exercises LE Seated Exercise, UE Exercise Session Ratio (pt:therapist): 3:1 Goal of Session: UE/LE Strengthing, Use of Adaptive Equipment, Other (list) (handwashing) Goal Met for this Session: Yes Pt Benefit of Group: Contributions to Others, F/U Use of Strategies @Home, Increased Functional Safety, Increased Functional Strength, Improved Cognition, Recognition of Peers, Socialization Other/Notes Pt ambulated using FWW to [facility] for OT/PT group. Group consisted of introductions (name, place living, favorite childhood food), socialization, peer lead UE/LE seated exercises, educational topics of handwashing and AD for walkers. Pt introduced self appropriately and actively listened to peers. Pt was able to read exercise card and lead group in one exercise then completed other exercises that was lead by peers. Pt acknowledged understanding of educational topics by giving own strategies and personal stories on each topic. After group, pt ambulated back to room and sat in recliner. Call light and phone placed in reach. All needs met. Start Time: 13:00 Stop Time: 14:00 Total Billed Treatment Time: 60 Total Billed Treatment 1-GRP NIGHAT MAYORGA Jul 20, 2019 14:14
[2019-07-20 17:24] VITALS: BP 138/66
[2019-07-20] MEDS: RIVAROXABAN 20 MG TABLET (XARELTO) PO SCH (17:47)
--- NOTE | 2019-07-20 18:55 | NUR ---
bedside report received from AYE KAY, assume care of pt
[2019-07-20] MEDS: MELATONIN 3 MG TABLET PO PRN (20:21)
--- NOTE | 2019-07-20 20:22 | NUR ---
pt took colace but refused miralax& Senokot, back to bed, bryan wraps off at pt request
[2019-07-21] MEDS: LEVOTHYROXINE 25 MCG (LEVOTHROID) TAB PO SCH (05:05)
[2019-07-21 05:06] VITALS: BP 120/64
--- NOTE | 2019-07-21 05:57 | Discharge Summary ---
Diagnosis/Chief Complaint Date of Admission Jul 11, 2019 at 10:30 Date of Discharge Discharge Date: Jul 21, 2019 Discharge Diagnosis Assessment: Cardiac debility s/p NSTEMI Severe debilitating nausea and vomiting now resolved since DC Amiodarone and Lipitor Severe deconditioning CAD w/recent stent placement AF OAC CRI Hyponatremia Delirium resolved Edema Plan: IVF HL Fluid restriction DC Monitor closely SARAH wraps DC Wednesday (1) Debility Status: Acute (2) NSTEMI (non-ST elevated myocardial infarction) Status: Acute (3) Angina at rest Status: Acute (4) Atrial fibrillation Status: Chronic (5) CAD (coronary artery disease) Status: Chronic (6) Hypothyroidism Status: Chronic (7) HTN (hypertension) Status: Chronic (8) HLD (hyperlipidemia) Status: Chronic (9) Acute kidney insufficiency Status: Resolved Resolution Date/Time: 07/10/19 @ 16:43 (10) DVT prophylaxis Status: Acute (11) CHF (congestive heart failure) Status: Acute (12) Duodenitis Status: Acute (13) Dyspepsia Status: Acute (14) Elevated brain natriuretic peptide (BNP) level Status: Acute Discharge Summary Discharge Physical Examination Allergies: Coded Allergies: Penicillins (Verified Allergy, Unknown, 07/21/18) propoxyphene (Verified Allergy, Unknown, 07/21/18) Uncoded Allergies: AMIO (Adverse Reaction, Intermediate, Nausea, 07/12/19) Vitals & I&Os Vital Signs Date Time Temp Pulse Resp B/P (MAP) Pulse Ox O2 Delivery O2 Flow Rate FiO2 07/21/19 09:00 97 Nasal Cannula 07/21/19 05:06 36.5 82 18 120/64 (82) 2.00 General Appearance: Alert, Oriented X3, Cooperative Respiratory: Clear to Auscultation Cardiovascular: Regular Rate Neuro: Normal Gait, Normal Speech, Strength at 5/5 X4 Ext Psych/Mental Status: Mental Status NL Hospital Course Was the Problem List Reviewed?: Yes Hospital Course: Pt had an uneventful but very productive 10 day hospital course in inpatient rehab after suffering multiple hospital stays at [facility] and ER visits and stent placements and so forth and AF with RVR. Dr. Reyez was consulted and he discontinued Amiodarone and Lipitor because those two could very well cause the nausea and that did indeed resolve. Pt required fluid restriction for hyponatremia, IV fluids during the nausea and vomiting issue amd aggressive bowel regimen for severe constipation that resolved ultimately. Pt was weaned off day time O2 and she maintains O2 at night at home and that was maintained oysterman and overall pt was able to return home. Pt family is very involved in her care, home health was ordered, she already had a walker at home and pt had a very good outcome during her stay. Labs (last 24 hrs) Laboratory Tests 07/12/19 05:26: White Blood Count 5.6, Red Blood Count 3.49L, Hemoglobin 10.2L, Hematocrit 30L, Mean Corpuscular Volume 87, Mean Corpuscular Hemoglobin 29, Mean Corpuscular Hemoglobin Concent 34, Red Cell Distribution Width 13.8, Platelet Count 282, Mean Platelet Volume 9.1, Neutrophils (%) (Auto) 76H, Lymphocytes (%) (Auto) 9L, Monocytes (%) (Auto) 9, Eosinophils (%) (Auto) 6, Basophils (%) (Auto) 1, Neutrophils # (Auto) 4.3, Lymphocytes # (Auto) 0.5L, Monocytes # (Auto) 0.5, Eosinophils # (Auto) 0.4H, Basophils # (Auto) 0.0, Sodium Level 128L, Potassium Level 3.7, Chloride Level 98, Carbon Dioxide Level 22, Anion Gap 8, Blood Urea Nitrogen 10, Creatinine 1.00, Estimat Glomerular Filtration Rate 53, BUN/Creatinine Ratio 10, Glucose Level 104, Calcium Level 8.5, Corrected Calcium 9.5, Total Bilirubin 0.6, Aspartate Amino Transf (AST/SGOT) 32, Alanine Aminotransferase (ALT/SGPT) 48, Alkaline Phosphatase 128, Total Protein 5.3L, Albumin 2.7L 07/13/19 07:13: White Blood Count 6.8, Red Blood Count 3.63L, Hemoglobin 10.5L, Hematocrit 32L, Mean Corpuscular Volume 88, Mean Corpuscular Hemoglobin 29, Mean Corpuscular Hemoglobin Concent 33, Red Cell Distribution Width 14.3, Platelet Count 303, Me an Platelet Volume 8.8, Neutrophils (%) (Auto) 79H, Lymphocytes (%) (Auto) 9L, Monocytes (%) (Auto) 8, Eosinophils (%) (Auto) 4, Basophils (%) (Auto) 0, Neutrophils # (Auto) 5.3, Lymphocytes # (Auto) 0.6L, Monocytes # (Auto) 0.5, Eosinophils # (Auto) 0.3, Basophils # (Auto) 0.0, Sodium Level 133L, Potassium Level 3.6, Chloride Level 102, Carbon Dioxide Level 24, Anion Gap 7, Blood Urea Nitrogen 8, Creatinine 1.05, Estimat Glomerular Filtration Rate 50, BUN/Creatinine Ratio 8, Glucose Level 136H, Calcium Level 8.6, Corrected Calcium 9.6, Total Bilirubin 0.5, Aspartate Amino Transf (AST/SGOT) 33, Alanine Aminotransferase (ALT/SGPT) 47, Alkaline Phosphatase 127, Total Protein 5.6L, Albumin 2.8L 07/17/19 05:25: White Blood Count 5.1, Red Blood Count 3.62L, Hemoglobin 10.6L, Hematocrit 32L, Mean Corpuscular Volume 89, Mean Corpuscular Hemoglobin 29, Mean Corpuscular Hemoglobin Concent 33, Red Cell Distribution Width 14.5, Platelet Count 348, Mean Platelet Volume 9.0, Neutrophils (%) (Auto) 67, Lymphocytes (%) (Auto) 14, Monocytes (%) (Auto) 12, Eosinophils (%) (Auto) 7, Basophils (%) (Auto) 1, Neutrophils # (Auto) 3.4, Lymphocytes # (Auto) 0.7L, Monocytes # (Auto) 0.6, Eosinophils # (Auto) 0.3, Basophils # (Auto) 0.0, Sodium Level 137, Potassium Level 3.5L, Chloride Level 102, Carbon Dioxide Level 27, Anion Gap 8, Blood Urea Nitrogen 11, Creatinine 1.26, Estimat Glomerular Filtration Rate 40, B UN/Creatinine Ratio 9, Glucose Level 103, Calcium Level 9.0, Corrected Calcium 9.8, Total Bilirubin 0.5, Aspartate Amino Transf (AST/SGOT) 20, Alanine Aminotransferase (ALT/SGPT) 31, Alkaline Phosphatase 122, Total Protein 5.8L, Albumin 3.0L Pending Labs Laboratory Tests 07/12/19 05:26: White Blood Count 5.6, Red Blood Count 3.49, Hemoglobin 10.2, Hematocrit 30, Mean Corpuscular Volume 87, Mean Corpuscular Hemoglobin 29, Mean Corpuscular Hemoglobin Concent 34, Red Cell Distribution Width 13.8, Platelet Count 282, Mean Platelet Volume 9.1, Neutrophils (%) (Auto) 76, Lymphocytes (%) (Auto) 9, Monocytes (%) (Auto) 9, Eosinophils (%) (Auto) 6, Basophils (%) (Auto) 1, Neutrophils # (Auto) 4.3, Lymphocytes # (Auto) 0.5, Monocytes # (Auto) 0.5, Eosinophils # (Auto) 0.4, Basophils # (Auto) 0.0, Sodium Level 128, Potassium Level 3.7, Chloride Level 98, Carbon Dioxide Level 22, Anion Gap 8, Blood Urea Nitrogen 10, Creatinine 1.00, Estimat Glomerular Filtration Rate 53, BUN/Creatinine Ratio 10, Glucose Level 104, Calcium Level 8.5, Corrected Calcium 9.5, Total Bilirubin 0.6, Aspartate Amino Transf (AST/SGOT) 32, Alanine Aminotransferase (ALT/SGPT) 48, Alkaline Phosphatase 128, Total Protein 5.3, Albumin 2.7 07/13/19 07:13: White Blood Count 6.8, Red Blood Count 3.63, Hemoglobin 10.5, Hematocrit 32, Mean Corpuscular Volume 88, Mean Corpuscular Hemoglobin 29, Mean Corpuscular Hemoglobin Concent 33, Red Cell Distribution Width 14.3, Platelet Count 303, Mean Platelet Volume 8.8, Neutrophils (%) (Auto) 79, Lymphocytes (%) (Auto) 9, Monocytes (%) (Auto) 8, Eosinophils (%) (Auto) 4, Basophils (%) (Auto) 0, Neutrophils # (Auto) 5.3, Lymphocytes # (Auto) 0.6, Monocytes # (Auto) 0.5, Eosinophils # (Auto) 0.3, Basophils # (Auto) 0.0, Sodium Level 133, Potassium Level 3.6, Chloride Level 102, Carbon Dioxide Level 24, Anion Gap 7, Blood Urea Nitrogen 8, Creatinine 1.05, Estimat Glomerular Filtration Rate 50, BUN/Creatinine Ratio 8, Glucose Level 136, Calcium Level 8.6, Corrected Calcium 9.6, Total Bilirubin 0.5, Aspartate Amino Transf (AST/SGOT) 33, Alanine Am inotransferase (ALT/SGPT) 47, Alkaline Phosphatase 127, Total Protein 5.6, Albumin 2.8 07/17/19 05:25: White Blood Count 5.1, Red Blood Count 3.62, Hemoglobin 10.6, Hematocrit 32, Mean Corpuscular Volume 89, Mean Corpuscular Hemoglobin 29, Mean Corpuscular Hemoglobin Concent 33, Red Cell Distribution Width 14.5, Platelet Count 348, Mean Platelet Volume 9.0, Neutrophils (%) (Auto) 67, Lymphocytes (%) (Auto) 14, Monocytes (%) (Auto) 12, Eosinophils (%) (Auto) 7, Basophils (%) (Auto) 1, Ne utrophils # (Auto) 3.4, Lymphocytes # (Auto) 0.7, Monocytes # (Auto) 0.6, Eosinophils # (Auto) 0.3, Basophils # (Auto) 0.0, Sodium Level 137, Potassium Level 3.5, Chloride Level 102, Carbon Dioxide Level 27, Anion Gap 8, Blood Urea Nitrogen 11, Creatinine 1.26, Estimat Glomerular Filtration Rate 40, BUN/Creatinine Ratio 9, Glucose Level 103, Calcium Level 9.0, Corrected Calcium 9.8, Total Bilirubin 0.5, Aspartate Amino Transf (AST/SGOT) 20, Alanine Aminotransferase (ALT/SGPT) 31, Alkaline Phosphatase 122, Total Protein 5.8, Albumin 3.0 Discharge Home Medications: Active Scripts Active Polyethylene Glycol 3350 17 Gm Powd.pack 17 Gm PO BID 30 Days Sucralfate 1 Gm Tablet 1 Gm PO ACHS Reported Aspirin EC (Aspirin) 81 Mg Tablet.dr 81 Mg PO DAILY Plavix (Clopidogrel Bisulfate) 75 Mg Tablet 75 Mg PO DAILY Pantoprazole Sodium 40 Mg Tablet.dr 40 Mg PO DAILY Metoclopramide HCl 5 Mg Tablet 5 Mg PO TID PRN Senna (Sennosides) 8.6 Mg Tablet 8.6 Mg PO Q6H PRN Potassium Chloride 20 Meq Tab.er.prt 20 Meq PO DAILY Furosemide 40 Mg Tablet 40 Mg PO DAILY Advair 100-50 Diskus (Fluticasone/Salmeterol) 1 Each Blst.w.dev 1 Puff INH BID Proair Hfa (Albuterol Sulfate) 1 Puff Puff 2 Puff INH Q6H PRN Diltiazem HCl 60 Mg Tablet 60 Mg PO Q6H Benzonatate 100 Mg Capsule 100 Mg PO TID Meclizine HCl 25 Mg Tablet 25 Mg PO TID PRN Magnesium Oxide 400 Mg Tablet 400 Mg PO DAILY Synthroid (Levothyroxine Sodium) 25 Mcg Tablet 25 Mcg PO 0500 Xarelto (Rivaroxaban) 20 Mg Tablet 20 Mg PO 1800 Instructions to patient/family Please see electronic discharge instructions given to patient. Diagnosis/Problems Diagnosis/Problems (1) Debility Status: Acute (2) NSTEMI (non-ST elevated myocardial infarction) Status: Acute (3) Angina at rest Status: Acute (4) Atrial fibrillation Status: Chronic (5) CAD (coronary artery disease) Status: Chronic (6) Hypothyroidism Status: Chronic (7) HTN (hypertension) Status: Chronic (8) HLD (hyperlipidemia) Status: Chronic (9) Acute kidney insufficiency Status: Resolved Resolution Date/Time: 07/10/19 @ 16:43 (10) DVT prophylaxis Status: Acute (11) CHF (congestive heart failure) Status: Acute (12) Duodenitis Status: Acute (13) Dyspepsia Status: Acute (14) Elevated brain natriuretic peptide (BNP) level Status: Acute Clinical Quality Measures DVT/VTE Risk/Contraindication: Risk Factor Score Per Nursin RFS Level Per Nursing on Admit: 4+=Very High ALICIA GASCA DO Jul 21, 2019 05:57
[2019-07-21] MEDS: SUCRALFATE 1 GM (CARAFATE) TAB PO SCH (06:03)
[2019-07-21] MEDS: MAGNESIUM OXIDE (MAG-OX)400 MG TAB PO SCH (08:08)
[2019-07-21] MEDS: METOCLOPRAMIDE 5 MG (REGLAN) TAB PO SCH (08:08)
[2019-07-21] MEDS: SENNA W/DOCUSATE (SENOKOT S) TABLET PO SCH (08:09)
[2019-07-21] MEDS: KCL 20 MEQ TAB (K-DUR) PO SCH (08:09)
[2019-07-21] MEDS: DOCUSATE SODIUM 100 MG (COLACE) CAP PO SCH (08:09)
[2019-07-21] MEDS: FUROSEMIDE 40 MG (LASIX) TAB PO SCH (08:10)
[2019-07-21] MEDS: ASPIRIN E.C. 81 MG (ECOTRIN) TAB PO SCH (08:10)
[2019-07-21] MEDS: CLOPIDOGREL 75 MG (PLAVIX) TABLET PO SCH (08:10)
[2019-07-21] MEDS: BENZONATATE 100 MG (TESSALON) CAPSULE PO SCH (08:10)
[2019-07-21] MEDS: PANTOPRAZOLE 40 MG (PROTONIX) TAB PO SCH (08:10)
[2019-07-21] MEDS: polyethylene glycoL POWDER 17 GM (MIRALAX) PACK PO SCH (08:22)
--- NOTE | 2019-07-21 09:26 | Therapy Team Discharge Summary ---
Therapy Discharge Summary Discharge Recommendations Date of Discharge Physical Therapy Patient came to rehab with chest pain/afib. Upon evaluation patient performed bed mobility with independence, transfers with CGA, car transfer CGA, ambulated 150' with a rolling walker with CGA (including 50' with at least 2 turns of 90 degrees and 10' over an uneven surface), and went up and down 1 step using a rolling walker with CGA. Patient has been performing bed mobility and transfer training, balance and endurance training, functional strengthening, stair training, gait training, and education, to improve functional mobility and independence at home. Patient has made good progress and has met all of her retirement goals. Now, patient performs bed mobility and transfers with independence, ambulates 300' with a rolling walker with independence (including 50' with at least 2 turns of 90 degrees and 10' over an uneven surface), and can go up and down 4 steps using 2 handrails with independence. Patient is discharging from this facility today and will be discharged from PT at this time. Occupational Therapy Decreased Activ Tolerance PT Camera Mechanic Goals Snf Goals PT Camera Mechanic Goals Time Frame: Aug 05, 2019 Roll Left to Right (QC): 6 Sit to Lying (QC): 6 Lying-Sitting on Side/Bed(QC): 6 Sit to Stand (QC): 6 Chair/Bwv-cz-Tpoig Xfer(QC): 6 Car Transfer (QC): 6 Does the Patient Walk: Yes Walk 10 feet (QC): 6 Walk 10ft-Uneven Surface(QC): 6 Walk 50ft with 2 Turns (QC): 6 Walk 150 ft (QC): 6 Does the Pt use WC or Scooter?: No 1 Step (curb) (QC): 6 OT Camera Mechanic Goals Snf Goals Time Frame: Aug 01, 2019 Eating (QC): 6 (met) Oral Hygiene (QC): 6 (met) Shower/Bathe Self (QC): 5 (met) Upper Body Dressing (QC): 6 (met) Lower Body Dressing (QC): 6 (met) On/Off Footwear (QC): 6 (met) Toileting Hygiene (QC): 6 (met) Toilet/Commode Transfer (QC): 6 Additional Goals: 1-Demonstrate ADL Tasks, 2-Verbalize Understanding, 3- ImproveStrength/Abdiel 1=Demonstrate adherence to instructed precautions during ADL tasks. 2=Patient will verbalize/demonstrate understanding of assistive devices/modifications for ADL. 3=Patient will improve strength/tolerance for activity to enable patient to perform ADL's. CONOR PEARSON PT Jul 21, 2019 09:26
--- NOTE | 2019-07-21 12:00 | NUR ---
CM/SS DISCHARGE HHC: Finalized with [facility]. Patient's family here to transport, Unit RN assisted with all coordination on behalf of patient.
--- NOTE | 2019-07-21 13:44 | Therapy Team Discharge Summary ---
Therapy Discharge Summary Discharge Recommendations Date of Discharge Jul 21, 2019 at 10:53 Occupational Therapy Pt admitted to ARU following acute hospitalization for chest pain/a-fib. On a dmission pt required max assist for footwear, min assist with bathing and LE dressing, and CGA for oral care. Skilled OT intervention focused on ADL training, transfers, strengthening, and safety education. Pt made good progress with therapy and by discharge is completing basic ADLs and transfers with modified independence. Pt met all OT LTG. Pt discharging home this date. D/C ARU OT at this time. Decreased Activ Tolerance PT Assisted Goals Tool Rental Technician Goals PT Assisted Goals Time Frame: Aug 05, 2019 Roll Left to Right (QC): 6 Sit to Lying (QC): 6 Lying-Sitting on Side/Bed(QC): 6 Sit to Stand (QC): 6 Chair/Ozt-mf-Yspav Xfer(QC): 6 Car Transfer (QC): 6 Does the Patient Walk: Yes Walk 10 feet (QC): 6 Walk 10ft-Uneven Surface(QC): 6 Walk 50ft with 2 Turns (QC): 6 Walk 150 ft (QC): 6 Does the Pt use WC or Scooter?: No 1 Step (curb) (QC): 6 OT Assisted Goals Tool Rental Technician Goals Time Frame: Aug 01, 2019 Eating (QC): 6 (met) Oral Hygiene (QC): 6 (met) Shower/Bathe Self (QC): 5 (met) Upper Body Dressing (QC): 6 (met) Lower Body Dressing (QC): 6 (met) On/Off Footwear (QC): 6 (met) Toileting Hygiene (QC): 6 (met) Toilet/Commode Transfer (QC): 6 Additional Goals: 1-Demonstrate ADL Tasks, 2-Verbalize Understanding, 3- ImproveStrength/Abdiel 1=Demonstrate adherence to instructed precautions during ADL tasks. 2=Patient will verbalize/demonstrate understanding of assistive devices/modifications for ADL. 3=Patient will improve strength/tolerance for activity to enable patient to perform ADL's. NANDO LOAIZA OT Jul 21, 2019 13:44
== END 2019-07-21 10:53 | disposition home health service (06) | DRG 281 ==
PROVIDERS: ADMIT Internal Medicine; ATTEND Internal Medicine
DX: I21.4 Non-ST elevation (NSTEMI) myocardial infarction (principal); I25.119 Atherosclerotic heart disease of native coronary artery with unspecified angina pectoris; I48.19 Other persistent atrial fibrillation; E87.1 Hypo-osmolality and hyponatremia; R13.10 Dysphagia, unspecified; I13.0 Hypertensive heart and chronic kidney disease with heart failure and stage 1 through stage 4 chronic kidney disease, or unspecified chronic kidney disease; N18.3 Chronic kidney disease, stage 3 (moderate); I50.32 Chronic diastolic (congestive) heart failure; I48.0 Paroxysmal atrial fibrillation; R41.0 Disorientation, unspecified; K59.00 Constipation, unspecified; E78.5 Hyperlipidemia, unspecified; N28.9 Disorder of kidney and ureter, unspecified; R73.03 Prediabetes; F41.9 Anxiety disorder, unspecified; F32.9 Major depressive disorder, single episode, unspecified; E03.9 Hypothyroidism, unspecified; E66.9 Obesity, unspecified; R60.0 Localized edema; K29.80 Duodenitis without bleeding; Z95.5 Presence of coronary angioplasty implant and graft; Z68.38 Body mass index [BMI] 38.0-38.9, adult; Z79.01 Long term (current) use of anticoagulants
CPT/HCPCS: 36415; 74220; 80053; 85025; 94640; 94760; 94761

== ENCOUNTER → 2019-10-20 | Outpatient (CLI) | payer MEDICARE, OTHER ==
[~2019-10-20] MED LIST changes: -MECL-106 PO; +MECL-149 PO; -OMEP-280 PO; +OMEP20CA18 PO; +POLY17PO31 PO; -SENN-141 PO; +SENN-234 PO; +SUCR1TAB PO
--- NOTE | 2019-10-20 11:53 | Diagnostic Imaging Report ---
INDICATION: Right hand pain x2 weeks TECHNIQUE: Three views of the right hand. CORRELATION STUDY: None FINDINGS: No acute fracture. Alignment generally anatomic. Multifocal degenerative changes noted at multiple joints. This includes joint space narrowing and osteophyte formation diffusely throughout the majority of the interphalangeal joint. Findings most severe over the index and little fingers. Also, more focal narrowing and slight irregularity about the 2nd metacarpophalangeal joint. Narrowing and advanced degenerative changes of mild severity at the base of the thumb. Findings compatible with likely calcification in the region of triangular fibrocartilage complex. While a somewhat limited evaluation, there does appear to be distortion of the proximal pole of the scaphoid bone concerning for underlying osteonecrosis, likely chronic. Some generalized soft tissue edema. IMPRESSION: 1. Negative for acute bony abnormality of the hand. Advanced multifocal degenerative changes noted particularly through the interphalangeal joints, 2nd metacarpophalangeal joint and base of the thumb. 2. Findings do suggest probable chronic, osteonecrosis with volume loss of the proximal pole scaphoid. Dictated by: Dictated on workstation # [id number]
== END ==
LOC: RAD FS 11:31
PROVIDERS: ATTEND Nurse Practitioner
DX: M19.041 Primary osteoarthritis, right hand (principal)
CPT/HCPCS: 73130

== ENCOUNTER → 2019-11-15 | Outpatient (CLI) | payer MEDICARE, OTHER ==
--- NOTE | 2019-11-15 13:34 | Diagnostic Imaging Report ---
INDICATION: Left hand pain. TIME OF EXAM: 1:12 PM. TECHNIQUE: Three views of the left hand were obtained. FINDINGS: There is generalized demineralization. The distal radius and ulna are intact. There may be an old fracture of the ulnar styloid. The carpus is unremarkable. There are some degenerative changes involving multiple MCP joints as well as multiple interphalangeal joints; however, no definite osseous erosive changes are seen. No fractures are identified. The soft tissues are unremarkable. IMPRESSION: Osteoarthritic changes of the left hand. No osseous erosive changes are seen. No acute bony abnormality is detected. Dictated by: Dictated on workstation # [id number]
--- NOTE | 2019-11-15 13:36 | Diagnostic Imaging Report ---
INDICATION: Arthritis. Time of exam 1:17 PM Multiple views bilateral feet were obtained. Both feet demonstrate significant bunion deformities. There is a small left and large right plantar calcaneal spur. Hindfoot midfoot otherwise are unremarkable bilaterally. MTP and interphalangeal joints are unremarkable. No definite osseous erosive changes are seen. There is no fracture detected. Generalized demineralization is noted. Soft tissues are unremarkable. IMPRESSION: Chronic changes, as described. No osseous erosive changes are seen. No acute bony abnormality is detected. Dictated by: Dictated on workstation # [id number]
== END ==
LOC: RAD FS 12:31
PROVIDERS: ATTEND Nurse Practitioner Family
DX: M19.071 Primary osteoarthritis, right ankle and foot (principal); M19.072 Primary osteoarthritis, left ankle and foot; M19.042 Primary osteoarthritis, left hand
CPT/HCPCS: 73130

== ENCOUNTER → 2019-11-28 | Outpatient (CLI) | payer MEDICARE, OTHER ==
--- NOTE | 2019-11-28 13:55 | Diagnostic Imaging Report ---
INDICATION: Postmenopausal female. COMPARISON: None. FINDINGS: AP Spine L2-L4: [BMD (g/cm2): 1.069] [T-Score: -1.1] [Z-Score: 0.1] [BMD Previous: NA] [BMD % Change: NA] LT Hip Neck: [BMD (g/cm2): 0.764] [T-Score: -2.0] [Z-Score: 0.0] LT Hip Total: [BMD (g/cm2):0.854] [T-Score:-1.2] [Z-Score: 0.6] [BMD Previous: NA] [BMD % Change: NA] RT Hip Neck: [BMD (g/cm2):0.792] [T-Score:-1.8] [Z-Score:0.2] RT Hip Total: [BMD (g/cm2):0.827] [T-score:-1.4] [Z-Score:0.3] [BMD Previous:NA] [BMD % Change:NA] *Indicates significant change from prior examination based on 95% confidence level. World Health Organization criteria for BMD interpretation classify patients as Normal (T-score at or above -1.0), Osteopenic (T-score between -1.0 and -2.5) or Osteoporotic (T-score at or below -2.5). LIMITATIONS AND MODIFICATION: None. FRACTURE RISK (FRAX SCORE): The ten year probability of (%): Major Osteoporotic Fracture: [14.8] Hip Fracture: [4.4] IMPRESSION: 1. Osteopenia (Low bone mass). 2. Baseline examination. 3. See below National Osteoporosis Foundation guidelines on when to potentially initiate pharmacologic therapy. Based on the National Osteoporosis Foundation Guidelines, pharmacologic treatment should be initiated in any of the following, unless clinical conditions suggest otherwise: * Any patient with prior fragility fracture of the hip or vertebrae. A spine fracture indicates 5X risk for subsequent spine fracture and 2X risk for subsequent hip fracture. * Osteoporosis (T-score <-2.5). * Postmenopausal women and men age 50 and older with low bone mass/osteopenia (T-score between -1.0 and -2.5) by DXA and 10-year major osteoporotic fracture greater than 20% or a 10-year probability of hip fracture greater than 3%. These fracture risks are supplied above in the FRAX score, if applicable. * Clinician judgement and/or patient preferences may indicate treatment for people with 10-year fracture probabilities above or below these levels. Dictated by: Dictated on workstation # [id number]
== END ==
LOC: RAD 10:21
PROVIDERS: ATTEND Nurse Practitioner Family
DX: M81.0 Age-related osteoporosis without current pathological fracture (principal); M85.89 Other specified disorders of bone density and structure, multiple sites; Z78.0 Asymptomatic menopausal state
CPT/HCPCS: 77080

== ENCOUNTER → 2020-08-20 | Outpatient (CLI) | payer MEDICARE, OTHER ==
[~2020-08-20] MED LIST changes: -AMIO200T4 PO; +AMIO200T6 PO; +ASPI-1238 PO; -ASPI-983 PO; -PANT40TA3 PO; +PANT40TA52 PO; -POLY17PO31 PO; +POLY17PO54 PO
== END ==
LOC: CARD 08:31
PROVIDERS: ATTEND Internal Medicine Cardiovascular Disease
DX: I11.9 Hypertensive heart disease without heart failure (principal); I35.1 Nonrheumatic aortic (valve) insufficiency; I35.8 Other nonrheumatic aortic valve disorders
CPT/HCPCS: 93306

== ENCOUNTER → 2020-09-26 | Outpatient (CLI) | payer MEDICARE, OTHER ==
[~2020-09-26] VITALS: Ht 165 cm; Wt 88.0 kg
[~2020-09-26] MED LIST changes: +REGADENOSON 0.4 MG/5 ML SYR (LEXISCAN) IV ONE
[2020-09-26] MEDS: CATHETER FLUSH 10 ML SYR IV PRN ×2 (07:02→08:11)
[2020-09-26 08:05] VITALS: BP 170/113
--- NOTE | 2020-09-30 08:27 | Cardiology Stress Test Report ---
Stress Test Report Date of Procedure/Referring: Date of Procedure: Sep 30, 2020 PCP Geoff Reyez MD Admitting [facility] Indications: CP Baseline Heart Rate: 115 Baseline Blood Pressure: Blood Pressure Systolic: 170 Blood Pressure Diastolic: 113 Baseline Vitals Vital Signs Date Time Temp Pulse Resp B/P (MAP) Pulse Ox O2 Delivery O2 Flow Rate FiO2 09/26/20 08:05 98 14 170/113 (132) 98 Room Air Baseline EKG: Baseline EKG: atrial fibrillation Summary After explaining the procedure to the patient, she signed a consent and then brought to the stress nuclear laboratory. Patient received 0.4 mg Lexiscan for stress test, ECG, heart rate and blood pressure were monitored continuously. Resting and stress dose of radio tracer were injected, imaging was acquired and reviewed in short axis, horizontal long axis and vertical long axis views. TID: 1.01 SSS: 1 SDS: 1 EF: 71 1. Patient tolerated Lexiscan well 2. Baseline atrial fibrillation persisted during test 3. Breast attenuation with typical female pattern, no significant ischemia or infarction on SPECT images 4. Baseline hypertension persisted during test 5. Normal left ventricular size, EF 71%, gated images are unreliable due to underlying atrial fibrillation GEOFF REYEZ MD Sep 30, 2020 08:27
== END ==
LOC: CARD 07:00
PROVIDERS: ATTEND Internal Medicine Cardiovascular Disease
DX: R07.9 Chest pain, unspecified (principal); I10 Essential (primary) hypertension
CPT/HCPCS: 78452; 93017; A9502

== ENCOUNTER 2020-11-25 14:27 | Emergency (ER) | payer MEDICARE, OTHER ==
[~2020-11-25] VITALS: Ht 154.9 cm; Wt 90.9 kg
[~2020-11-25 14:27] MED LIST changes: -REGADENOSON 0.4 MG/5 ML SYR (LEXISCAN) IV ONE
--- NOTE | 2020-11-25 14:46 | ED General ---
General Chief Complaint: Chest Pain Stated Complaint: LT ARM PAIN Source of Information: Patient History of Present Illness Date Seen by Provider: Nov 25, 2020 Time Seen by Provider: 14:29 Initial Comments 85-year-old female presenting with left shoulder and upper arm pain since 2099 last night. She states the pain is worse with movement and activity. She had arm pain when she required stents several years ago. She was concerned that this might be her heart so she talked to her family about this afternoon. They brought her to the emergency department to be evaluated. She has chronic atrial fibrillation and heart disease. She follows with Dr. Reyez for cardiology out of [facility]. She states she has an appointment to see him on Wednesday of next week. She had a stress test this September that did not show ischemic changes. She tried Acetaminophen for pain but it was not taking all of her shoulder pain away. Timing/Duration: 12-24 Hours Severity: Moderate Modifying Factors: worse with Movement Associated Systoms: No Chest Pain, No Cough, No Diaphoresis, No Fever/Chills, No Headaches, No Loss of Appetite, No Malaise, No Nausea/Vomiting, No Rash, No Seizure; Shortness of Air (with exertion, which is chronic for her); No Syncope, No Weakness Allergies and Home Medications Allergies Coded Allergies: Penicillins (Verified Allergy, Unknown, 07/21/18) propoxyphene (Verified Allergy, Unknown, 07/21/18) Uncoded Allergies: AMIO (Adverse Reaction, Intermediate, Nausea, 07/12/19) Home Medications Albuterol Sulfate 1 Puff Puff, 2 PUFF INH Q6H PRN for SHORTNESS OF BREATH, (Reported) Aspirin 81 Mg Tablet.dr, 81 MG PO DAILY, (Reported) Benzonatate 100 Mg Capsule, 100 MG PO TID, (Reported) Clopidogrel Bisulfate 75 Mg Tablet, 75 MG PO DAILY, (Reported) Diltiazem HCl 60 Mg Tablet, 60 MG PO Q6H, (Reported) Fluticasone/Salmeterol 1 Each Blst.w.dev, 1 PUFF INH BID, (Reported) Furosemide 40 Mg Tablet, 40 MG PO DAILY, (Reported) Levothyroxine Sodium 25 Mcg Tablet, 25 MCG PO 0500, (Reported) Magnesium Oxide 400 Mg Tablet, 400 MG PO DAILY, (Reported) Meclizine HCl 25 Mg Tablet, 25 MG PO TID PRN for DIZZINESS, (Reported) Metoclopramide HCl 5 Mg Tablet, 5 MG PO TID PRN for NAUSEA/VOMITING-3RD LINE, (Reported) Pantoprazole Sodium 40 Mg Tablet.dr, 40 MG PO DAILY, (Reported) Polyethylene Glycol 3350 17 Gm Powd.pack, 17 GM PO BID Prescribed by: ALICIA GASCA on 07/20/19 1239 Potassium Chloride 20 Meq Tab.er.prt, 20 MEQ PO DAILY, (Reported) Rivaroxaban 20 Mg Tablet, 20 MG PO 1800, (Reported) Sennosides 8.6 Mg Tablet, 8.6 MG PO Q6H PRN for CONSTIPATION-5TH LINE, (Reported) Sucralfate 1 Gm Tablet, 1 GM PO ACHS Prescribed by: ALICIA GASCA on 07/20/19 0634 Patient Home Medication List Home Medication List Reviewed: Yes Review of Systems Review of Systems Constitutional: No chills, No fever EENTM: see HPI Respiratory: see HPI Cardiovascular: see HPI; No chest pain Gastrointestinal: no symptoms reported Genitourinary: no symptoms reported Musculoskeletal: see HPI, joint pain (left shoulder pain worse with movement since 2100 last night. has RA and arthritis pain in multiple joints) Skin: no symptoms reported Psychiatric/Neurological: Anxiety (worried the arm and shoulder pain is heart related) Past Awtzpml-Dlnmss-Izceud Hx Past Med/Social Hx: Reviewed Nursing Past Med/Soc Hx Patient Social History 2nd Hand Smoke Exposure: No Recent Hopitalizations: Yes (DISCHARGED FROM [facility] 06/30/19, ER VISITS 25, 27, 29) Immunizations Up To Date Date of Pneumonia Vaccine: Nov 15, 2013 Date of Influenza Vaccine: Mar 07, 2019 Seasonal Allergies Seasonal Allergies: No Past Medical History Surgeries: Yes (STENT X 3, NSTEMI) Coronary Stent Respiratory: Yes Pneumonia, Sleep Apnea Cardiac: Yes (Paroxysmal A Fib, CHF) Atrial Fibrillation, Chronic Edema/Swelling, Coronary Artery Disease, High Cholesterol, Hypertension Neurological: No Genitourinary: Yes (Stage 3 CKD) Gastrointestinal: No Musculoskeletal: No Endocrine: Yes (Dx "Prediabetes") Hypothyroidsim HEENT: No Cancer: No Psychosocial: No Integumentary: No Blood Disorders: No Family Medical History No Pertinent Family Hx Physical Exam Vital Signs Vital Signs - First Documented 11/25/20 14:40 Temp 36.9 Pulse 93 Resp 20 B/P (MAP) 170/97 (121) Pulse Ox 99 O2 Delivery Room Air Capillary Refill : Height, Weight, BMI Height: 5'4.00" Weight: 190lbs. 0.7oz. 86.529408lh; 32.32 BMI Method:Stated General Appearance: No Apparent Distress, WD/WN HEENT: PERRL/EOMI, Pharynx Normal Neck: Full Range of Motion, Supple Respiratory: Chest Non Tender, Lungs Clear, Normal Breath Sounds Cardiovascular: Normal Peripheral Pulses, Irregularly Irregular Gastrointestinal: No Pulsatile Mass, Non Tender, Soft Rectal: Deferred Extremity: Normal Capillary Refill, No Pedal Edema, Other (pain with palpation of left shoulder and increased pain with movement of left shoulder) Neurologic/Psychiatric: Alert, Oriented x3, No Motor/Sensory Deficits, electrode turner and finisher II- XII Norm as Tested Skin: Normal Color, Warm/Dry Progress/Results/Core Measures Suspected Sepsis SIRS Temperature: Pulse: Respiratory Rate: Laboratory Tests 11/25/20 14:49: White Blood Count 7.5 Blood Pressure / Mean: Laboratory Tests 11/25/20 14:49: Creatinine 1.42H, INR Comment 1.4, Platelet Count 318, Total Bilirubin 0.4 Results/Orders Lab Results Laboratory Tests Test 11/25/20 14:49 Range/Units White Blood Count 7.5 4.3-11.0 10^3/uL Red Blood Count 4.97 4.35-5.85 10^6/uL Hemoglobin 12.8 11.5-16.0 G/DL Hematocrit 41 35-52 % Mean Corpuscular Volume 82 80-99 FL Mean Corpuscular Hemoglobin 26 25-34 PG Mean Corpuscular Hemoglobin Concent 32 32-36 G/DL Red Cell Distribution Width 15.8 H 10.0-14.5 % Platelet Count 318 130-400 10^3/uL Mean Platelet Volume 9.4 7.4-10.4 FL Immature Granulocyte % (Auto) 0 % Neutrophils (%) (Auto) 66 42-75 % Lymphocytes (%) (Auto) 22 12-44 % Monocytes (%) (Auto) 8 0-12 % Eosinophils (%) (Auto) 3 0-10 % Basophils (%) (Auto) 1 0-10 % Neutrophils # (Auto) 4.9 1.8-7.8 X 10^3 Lymphocytes # (Auto) 1.7 1.0-4.0 X 10^3 Monocytes # (Auto) 0.6 0.0-1.0 X 10^3 Eosinophils # (Auto) 0.2 0.0-0.3 10^3/uL Basophils # (Auto) 0.1 0.0-0.1 10^3/uL Immature Granulocyte # (Auto) 0.0 0.0-0.1 10^3/uL Prothrombin Time 17.0 H 12.2-14.7 SEC INR Comment 1.4 0.8-1.4 Activated Partial Thromboplast Time 36 H 24-35 SEC Sodium Level 139 135-145 MMOL/L Potassium Level 4.1 3.6-5.0 MMOL/L Chloride Level 106 98-107 MMOL/L Carbon Dioxide Level 24 21-32 MMOL/L Anion Gap 9 5-14 MMOL/L Blood Urea Nitrogen 29 H 7-18 MG/DL Creatinine 1.42 H 0.60-1.30 MG/DL Estimat Glomerular Filtration Rate 35 BUN/Creatinine Ratio 20 Glucose Level 179 H 70-105 MG/DL Calcium Level 9.3 8.5-10.1 MG/DL Corrected Calcium 9.1 8.5-10.1 MG/DL Magnesium Level 2.2 1.6-2.4 MG/DL Total Bilirubin 0.4 0.1-1.0 MG/DL Aspartate Amino Transf (AST/SGOT) 18 5-34 U/L Alanine Aminotransferase (ALT/SGPT) 16 0-55 U/L Alkaline Phosphatase 126 40-136 U/L Troponin I < 0.30 <0.30 NG/ML Pro-B-Type Natriuretic Peptide 1518.0 H <75.0 PG/ML Total Protein 7.3 6.4-8.2 GM/DL Albumin 4.2 3.2-4.5 GM/DL Lipase 29 8-78 U/L My Orders Orders - JULES SERNA MD Cbc With Automated Diff (11/25/20 14:47) Magnesium (11/25/20 14:47) Chest 1 View Ap/Pa Only (11/25/20 14:47) Ekg Tracing (11/25/20 14:47) Comprehensive Metabolic Panel (11/25/20 14:47) Protime With Inr (11/25/20 14:47) Partial Thromboplastin Time (11/25/20 14:47) O2 (11/25/20 14:47) Monitor-Rhythm Ecg Trace Only (11/25/20 14:47) Ed Iv/Invasive Line Start (11/25/20 14:47) Lipase (11/25/20 14:47) Troponin I Fs (11/25/20 14:47) Probnp Fs (11/25/20 14:47) Fentanyl Inj (Sublimaze Injection) (11/25/20 15:30) Vital Signs/I&O 11/25/20 11/25/20 11/25/20 11/25/20 14:40 14:40 15:48 16:57 Temp 36.9 36.9 36.7 Pulse 93 100 Resp 20 16 B/P (MAP) 170/97 (121) 156/98 (121) Pulse Ox 99 97 O2 Delivery Room Air Room Air Room Air Capillary Refill : Progress Note #1: Progress Note Check labs, ECG, CXR, cardiac enzymes. Try Fentanyl for pain since she already took tylenol around noon. Differential diagnosis includes myocardial infarction, angina, arthritic joint pain, chest wall pain, esophageal spasm, musculoskeletal pain, GERD Progress Note #2: Progress Note EKG shows chronic atrial fibrillation and appears similar to prior tracings. The chest x-ray did not demonstrate any acute abnormality. Her labs were stable for her without acute significant normality. She did have elevation of her proBNP but her troponin was less than 0.3. Especially since her pain has been c onstant since 2100 last night if this was a myocardial infarction or coronary syndrome with blockage and heart damage from lack of oxygen and blood flow she should have had an elevation by now. Reassured patient and family and her symptoms were improved after the fentanyl dose. She did not have anything stronger than Tylenol at home for pain. Advised that this may still just be more arthritic pain. Counseled on follow-up and return precautions. If she had worsening symptoms with diaphoresis, nausea, vomiting, chest pain, jaw pain then return for further evaluation otherwise keep appointment on Wednesday with Dr. Reyez and continue on her home medicines ECG Initial ECG Impression Date: Nov 25, 2020 Initial ECG Impression Time: 14:42 Initial ECG Rate: 121 Initial ECG Rhythm: A Fib/Flutter Initial ECG Comparisson: Unchanged Comment Atrial fibrillation with a heart rate of [address] elevation. QT interval 323 ms with a QTc interval 459 ms. This appears similar to prior tracings in the system. Diagnostic Imaging Diagonstic Imaging: Xray Plain Films/CT/US/NM/MRI: chest Comments [facility] [place], [place] NAME: LOU WOODRUFF [facility] REC#: [id number] PT STATUS: REG ER : 1935 PHYSICIAN: JULES SERNA MD ADMIT DATE: 11/25/20/ER FS Draft Date of Exam:11/25/20 CHEST 1 VIEW AP/PA ONLY INDICATION: Left arm pain since 2099 on November 24, 2020. COMPARISON: 07/05/2019. FINDINGS: Single frontal view of the chest demonstrates stable mild cardiomegaly. Pulmonary vasculature, however, is within normal limits. The lungs are well aerated and clear. No large pleural effusion or pneumothorax is seen. The visualized osseous structures show no acute abnormalities. IMPRESSION: No acute cardiopulmonary process. Dictated on workstation # [id number] Dict: 11/25/20 1523 Trans: 11/25/20 1525 [id number] Interpreted by: DIDIER MATHEWS MD Electronically signed by: Reviewed: Reviewed by Me Departure Impression Primary Impression: Left shoulder pain Qualified Codes: M25.512 - Pain in left shoulder Additional Impressions: Left upper arm pain Atrial fibrillation, chronic Hypertension Qualified Codes: I10 - Essential (primary) hypertension Disposition: HOME, SELF-CARE Condition: Improved Departure-Patient Inst. Decision time for Depature: 16:50 Referrals: [facility] (PCP) Primary Care Physician BALDEV CORREA APRN (Family) Primary Care Physician Patient Instructions: High Blood Pressure ED, Shoulder Pain ED Add. Discharge Instructions: Your tests today do not show evidence of a heart attack or new heart damage. Your pain may be more from musculoskeletal or arthritis pain in shoulder. Continue with Acetaminophen for pain and ice alternating with heat. Check with clinic for continued problems/concerns and return if having worsening symptoms or new problems such as nausea with vomiting, chest pain, sweating with pain All discharge instructions reviewed with patient and/or family. Voiced und erstanding. JULES SERNA MD Nov 25, 2020 14:46
[2020-11-25 14:57] LABS: BASOPHILS % (AUTO) 1 % (0-10); EOSINOPHILS % (AUTO) 3 % (0-10); HEMATOCRIT 41 % (35-52); HEMOGLOBIN 12.8 G/DL (11.5-16.0); LYMPHOCYTES % (AUTO) 22 % (12-44); MEAN CORPUSCULAR HEMOGLOBIN 26 PG (25-34); MEAN CORPUSCULAR HGB CONC 32 G/DL (32-36); MEAN CORPUSCULAR VOLUME 82 FL (80-99); MEAN PLATELET VOLUME 9.4 FL (7.4-10.4); MONOCYTES % (AUTO) 8 % (0-12); NEUTROPHILS % (AUTO) 66 % (42-75); PLATELET COUNT 318 10^3/uL (130-400); WHITE BLOOD COUNT 7.5 10^3/uL (4.3-11.0)
[2020-11-25 14:58] LABS: BASOPHILS # (AUTO) 0.1 10^3/uL (0.0-0.1); EOSINOPHILS # (AUTO) 0.2 10^3/uL (0.0-0.3); LYMPHOCYTES # (AUTO) 1.7 X 10^3 (1.0-4.0); MONOCYTES # (AUTO) 0.6 X 10^3 (0.0-1.0); NEUTROPHILS # (AUTO) 4.9 X 10^3 (1.8-7.8)
[2020-11-25 15:11] LABS: INR 1.4 (0.8-1.4)
--- NOTE | 2020-11-25 15:25 | Diagnostic Imaging Report ---
INDICATION: Left arm pain since 2099 on November 24, 2020. COMPARISON: 07/05/2019. FINDINGS: Single frontal view of the chest demonstrates stable mild cardiomegaly. Pulmonary vasculature, however, is within normal limits. The lungs are well aerated and clear. No large pleural effusion or pneumothorax is seen. The visualized osseous structures show no acute abnormalities. IMPRESSION: No acute cardiopulmonary process. Dictated by: Dictated on workstation # [id number]
[2020-11-25] MEDS ORDERED: fentaNYL INJ 100 MCG/2 ML AMP IVP STA (15:30)
[2020-11-25 15:35] LABS: ALBUMIN 4.2 GM/DL (3.2-4.5); BILIRUBIN,TOTAL 0.4 MG/DL (0.1-1.0); CALCIUM 9.3 MG/DL (8.5-10.1); CREATININE SERUM 1.42 MG/DL (0.60-1.30); MAGNESIUM 2.2 MG/DL (1.6-2.4); POTASSIUM 4.1 MMOL/L (3.6-5.0); TOTAL PROTEIN 7.3 GM/DL (6.4-8.2)
[2020-11-25 16:57] VITALS: BP 156/98
== END 2020-11-25 16:57 | disposition home or self-care (01) ==
LOC: EDUNIT# 14:27 → ER FS 14:29
DX: M25.512 Pain in left shoulder (principal); M79.622 Pain in left upper arm; I48.91 Unspecified atrial fibrillation; I10 Essential (primary) hypertension; E03.9 Hypothyroidism, unspecified; Z79.890 Hormone replacement therapy; Z79.82 Long term (current) use of aspirin; Z79.01 Long term (current) use of anticoagulants; Z79.899 Other long term (current) drug therapy
CPT/HCPCS: 36415; 71045; 80053; 83690; 83735; 83880; 84484; 85025; 85610; 85730; 93005; 93041

== ENCOUNTER 2021-01-07 06:55 | Day surgery (SDC) | payer MEDICARE, OTHER ==
[~2021-01-07] VITALS: Ht 152.4 cm; Wt 89.8 kg
[2021-01-07] VITALS (10 sets, daily range): BP systolic 119–176; BP diastolic 79–103
--- NOTE | 2021-01-07 07:24 | ED Chest Pain ---
General Chief Complaint: Chest Pain Stated Complaint: CHEST PAIN+ Source: patient Exam Limitations: no limitations History of Present Illness Date Seen by Provider: Jan 07, 2021 Time Seen by Provider: 07:00 Initial Comments Here with report of chest pain that occurred yesterday and then stopped but reoccurred this morning about 30 minutes prior to arrival. She reports it is a central pressure with mild to moderate intensity. It was enough that she took a nitroglycerin this morning. She has taken all of her morning medicines including aspirin. She is on Xarelto. Does have history of atrial fibrillation and has had previous stenting. Follows with Dr. Reyez. Overall feeling a little better now but still tachycardic and hypertensive. Did have some nausea earlier but no vomiting. Denies any upper respiratory symptoms or other symptom s otherwise. She has had Covid vaccine with Moderna both doses. 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 NTG SL SMALL BUSINESS CONSULTANT: Yes Associated Symptoms: No abdominal pain, No diaphoresis; nausea/vomiting; No sh ortness of breath; weakness Allergies and Home Medications Allergies Coded Allergies: Penicillins (Verified Allergy, Unknown, 07/21/18) propoxyphene (Verified Allergy, Unknown, 07/21/18) Uncoded Allergies: AMIO (Adverse Reaction, Intermediate, Nausea, 07/12/19) Home Medications Albuterol Sulfate 1 Puff Puff, 2 PUFF INH Q6H PRN for SHORTNESS OF BREATH, (Reported) Aspirin 81 Mg Tablet.dr, 81 MG PO DAILY, (Reported) Benzonatate 100 Mg Capsule, 100 MG PO TID, (Reported) Clopidogrel Bisulfate 75 Mg Tablet, 75 MG PO DAILY, (Reported) Diltiazem HCl 60 Mg Tablet, 60 MG PO Q6H, (Reported) Fluticasone/Salmeterol 1 Each Blst.w.dev, 1 PUFF INH BID, (Reported) Furosemide 40 Mg Tablet, 40 MG PO DAILY, (Reported) Levothyroxine Sodium 25 Mcg Tablet, 25 MCG PO 0500, (Reported) Magnesium Oxide 400 Mg Tablet, 400 MG PO DAILY, (Reported) Meclizine HCl 25 Mg Tablet, 25 MG PO TID PRN for DIZZINESS, (Reported) Metoclopramide HCl 5 Mg Tablet, 5 MG PO TID PRN for NAUSEA/VOMITING-3RD LINE, (Reported) Pantoprazole Sodium 40 Mg Tablet.dr, 40 MG PO DAILY, (Reported) Polyethylene Glycol 3350 17 Gm Powd.pack, 17 GM PO BID Prescribed by: ALICIA GASCA on 07/20/19 1239 Potassium Chloride 20 Meq Tab.er.prt, 20 MEQ PO DAILY, (Reported) Rivaroxaban 20 Mg Tablet, 20 MG PO 1800, (Reported) Sennosides 8.6 Mg Tablet, 8.6 MG PO Q6H PRN for CONSTIPATION-5TH LINE, (Reported) Sucralfate 1 Gm Tablet, 1 GM PO ACHS Prescribed by: ALICIA GASCA on 07/20/19 0634 Patient Home Medication List Home Medication List Reviewed: Yes Review of Systems Review of Systems Constitutional: see HPI; No chills, No fever EENTM: No Nose Congestion, No Throat Pain Respiratory: Denies Cough, Denies SOA at Rest Cardiovascular: Chest Pain; Denies Edema; Irregular Heart Rate Gastrointestinal: Nausea; Denies Vomiting Genitourinary: No Symptoms Reported Musculoskeletal: no symptoms reported All Other Systems Reviewed Negative Unless Noted: Yes Past Ezpxkfv-Lrxsid-Hklbbd Hx Patient Social History Tobacco Use?: No Use of E-Cig and/or Vaping dev: No Substance use?: No Alcohol Use?: No Pt feels they are or have been: No Immunizations Up To Date First/Initial COVID19 Vaccinat: JUL 2020 Second COVID19 Vaccination Rene: AUGUST 2020 COVID19 Vaccine Stencil Cutter Machine: XENIA Seasonal Allergies Seasonal Allergies: No Past Medical History Surgeries: Yes (STENT X 3, NSTEMI) Coronary Stent Respiratory: Yes Pneumonia, Sleep Apnea Cardiac: Yes (Paroxysmal A Fib, CHF) Atrial Fibrillation, Chronic Edema/Swelling, Coronary Artery Disease, High Leonila sterol, Hypertension Neurological: No Genitourinary: Yes (Stage 3 CKD) Gastrointestinal: No Musculoskeletal: No Endocrine: Yes (Dx "Prediabetes") Hypothyroidsim HEENT: No Cancer: No Psychosocial: No Integumentary: No Blood Disorders: No Family Medical History Reviewed Nursing Family Hx No Pertinent Family Hx Physical Exam Vital Signs Vital Signs - First Documented 01/07/21 06:58 Temp 35.8 Pulse 118 Resp 20 B/P (MAP) 181/116 (137) Pulse Ox 97 O2 Delivery Room Air Capillary Refill : Height, Weight, BMI Height: 5'4.00" Weight: 190lbs. 0.7oz. 86.455793cr; 37.00 BMI Method:Stated General Appearance: No Apparent Distress, WD/WN, Obese HEENT: PERRL/EOMI, Pharynx Normal Neck: Non Tender, Supple Respiratory: Lungs Clear, Normal Breath Sounds Cardiovascular: Irregularly Irregular, Tachycardia (Heart rate 97-129) Gastrointestinal: Non Tender, Soft Extremity: Normal Range of Motion, Non Tender, Pedal Edema (1-2+ to mid tibia bilateral) Neurologic/Psychiatric: Alert, Oriented x3, Normal Mood/Affect Skin: Normal Color, Warm/Dry Progress/Results/Core Measures Results/Orders Lab Results Laboratory Tests Test 01/07/21 07:00 Range/Units White Blood Count 8.1 4.3-11.0 10^3/uL Red Blood Count 5.01 4.35-5.85 10^6/uL Hemoglobin 12.9 11.5-16.0 G/DL Hematocrit 41 35-52 % Mean Corpuscular Volume 82 80-99 FL Mean Corpuscular Hemoglobin 26 25-34 PG Mean Corpuscular Hemoglobin Concent 31 L 32-36 G/DL Red Cell Distribution Width 15.1 H 10.0-14.5 % Platelet Count 317 130-400 10^3/uL Mean Platelet Volume 9.5 7.4-10.4 FL Immature Granulocyte % (Auto) 1 % Neutrophils (%) (Auto) 55 42-75 % Lymphocytes (%) (Auto) 29 12-44 % Monocytes (%) (Auto) 10 0-12 % Eosinophils (%) (Auto) 4 0-10 % Basophils (%) (Auto) 1 0-10 % Neutrophils # (Auto) 4.5 1.8-7.8 X 10^3 Lymphocytes # (Auto) 2.4 1.0-4.0 X 10^3 Monocytes # (Auto) 0.8 0.0-1.0 X 10^3 Eosinophils # (Auto) 0.3 0.0-0.3 10^3/uL Basophils # (Auto) 0.1 0.0-0.1 10^3/uL Immature Granulocyte # (Auto) 0.0 0.0-0.1 10^3/uL Prothrombin Time 18.8 H 12.2-14.7 SEC INR Comment 1.6 H 0.8-1.4 Activated Partial Thromboplast Time 39 H 24-35 SEC Sodium Level 138 135-145 MMOL/L Potassium Level 3.9 3.6-5.0 MMOL/L Chloride Level 102 98-107 MMOL/L Carbon Dioxide Level 26 21-32 MMOL/L Anion Gap 10 5-14 MMOL/L Blood Urea Nitrogen 25 H 7-18 MG/DL Creatinine 1.38 H 0.60-1.30 MG/DL Estimat Glomerular Filtration Rate 36 BUN/Creatinine Ratio 18 Glucose Level 133 H 70-105 MG/DL Calcium Level 9.7 8.5-10.1 MG/DL Corrected Calcium 9.5 8.5-10.1 MG/DL Magnesium Level 2.2 1.6-2.4 MG/DL Total Bilirubin 0.4 0.1-1.0 MG/DL Aspartate Amino Transf (AST/SGOT) 20 5-34 U/L Alanine Aminotransferase (ALT/SGPT) 17 0-55 U/L Alkaline Phosphatase 129 40-136 U/L Myoglobin 71.2 10.0-92.0 NG/ML Troponin I < 0.30 <0.30 NG/ML Total Protein 7.6 6.4-8.2 GM/DL Albumin 4.2 3.2-4.5 GM/DL My Orders Orders - EVANGELISTA VAN MD Cbc With Automated Diff (01/07/21 07:16) Magnesium (01/07/21 07:16) Chest 1 View Ap/Pa Only (01/07/21 07:16) Ekg Tracing (01/07/21 07:16) Comprehensive Metabolic Panel (01/07/21 07:16) Myoglobin Serum (01/07/21 07:16) Protime With Inr (01/07/21 07:16) Partial Thromboplastin Time (01/07/21 07:16) O2 (01/07/21 07:16) Monitor-Rhythm Ecg Trace Only (01/07/21 07:16) Lipid Panel (01/08/21 06:00) Ed Iv/Invasive Line Start (01/07/21 07:16) Troponin I Fs (01/07/21 07:16) Probnp Fs (01/07/21 07:16) Diltiazem Injection (Cardizem Injection) (01/07/21 07:30) Ns Iv 500 Ml (Sodium Chloride 0.9%) (01/07/21 07:30) Medications Given in ED Current Medications Medications Dose Ordered Sig/Ammy Route Start Time Stop Time Status Last Admin Dose Admin Diltiazem HCl 20 mg ONCE ONCE IVP 01/07/21 07:30 01/07/21 07:31 DC 01/07/21 07:26 20 MG Sodium Chloride 500 ml @ 0 mls/hr Q0M ONCE IV 01/07/21 07:30 01/07/21 07:31 DC 01/07/21 07:27 1,000 MLS/HR Vital Signs/I&O 01/07/21 01/07/21 06:58 06:58 Temp 35.8 Pulse 118 Resp 20 B/P (MAP) 181/116 (137) Pulse Ox 97 O2 Delivery Room Air Room Air Progress Progress Note : Progress Note Seen and evaluated. IV, labs, EKG and chest x-ray ordered. Patient is already had aspirin this morning so we do not need to do that. She is pain-free so nitro not needed. Patient does have history of atrial fibrillation and is on diltiazem 360 mg daily with additional 60 mg doses as needed for heart rate greater than 100. We will go ahead and give Cardizem 20 mg IV now and see how she responds as well as give normal saline 500 mL bolus. Chest pain protocol initiated. Monitor patient. 0810: I have discussed the case with Dr. Burnett and Dr. Null. Dr. Burnett has excepted the patient for admission with Dr. Null on consult who is excepted as well. Initial troponin negative. Chest pain-free currently and heart rate in the 80s but still A. fib. States that she does get chest pain when she has to get up to go to the bathroom but it is not sustained. Discussed admission with the patient and family who agree with plan. Patient to be admitted to the stepdown unit. Observation status. Initial ECG Impression Date: Jan 07, 2021 Initial ECG Impression Time: 06:57 Initial ECG Rate: 104 Initial ECG Rhythm: A Fib/Flutter Comment Atrial fibrillation with normal axis. No evidence of ST elevation AR. Repull abnormalities noted throughout. Similar to previous of 11/25/2020. Interpreted by me. Diagnostic Imaging Diagonstic Imaging: Xray Plain Films/CT/US/NM/MRI: chest Comments [facility] [place] [place] NAME: LOU WOODRUFF [facility] REC#: [id number] PT STATUS: REG ER : 1935 PHYSICIAN: EVANGELISTA VAN MD ADMIT DATE: 01/07/21/ER FS Draft Date of Exam:01/07/21 CHEST 1 VIEW AP/PA ONLY INDICATION: Chest pain COMPARISON: 11/25/2020 TECHNIQUE: Single radiograph of the chest dated 01/07/2021. FINDINGS: The cardiac silhouette is enlarged, though stable. No significant pulmonary vascular congestion. The lungs are clear of focal pulmonary opacity. No pleural effusion. No pneumothorax. No acute osseous abnormality. IMPRESSION: Similar-appearing examination demonstrating cardiomegaly without pulmonary vascular congestion or additional superimposed acute cardiopulmonary abnormality. Dictated on workstation # [id number] Dict: 01/07/21 0731 Trans: 01/07/21 0734 [id number] Interpreted by: FABIAN PAZ MD Electronically signed by: Departure Communication (Admissions) Time/Spoke to Admitting Phy: 08:06 Time/Spoke to Consulting Phy: 08:10 Impression Primary Impression: Chest pain Qualified Codes: R07.9 - Chest pain, unspecified Additional Impression: Atrial fibrillation Qualified Codes: I48.11 - Longstanding persistent atrial fibrillation Disposition: 30 STILL A PATIENT Condition: Stable Admissions Decision to Admit Reason: Admit from ER (General) Decision to Admit/Date: Jan 07, 2021 Time/Decision to Admit Time: 08:06 Departure-Patient Inst. Referrals: [facility] (PCP) Primary Care Physician BALDEV CORREA APRN (Family) Primary Care Physician EVANGELISTA VAN MD Jan 07, 2021 07:24
[2021-01-07 07:28] LABS: HEMATOCRIT 41 % (35-52); HEMOGLOBIN 12.9 G/DL (11.5-16.0); MEAN CORPUSCULAR HEMOGLOBIN 26 PG (25-34); MEAN CORPUSCULAR VOLUME 82 FL (80-99); WHITE BLOOD COUNT 8.1 10^3/uL (4.3-11.0)
[2021-01-07 07:29] LABS: BASOPHILS # (AUTO) 0.1 10^3/uL (0.0-0.1); BASOPHILS % (AUTO) 1 % (0-10); EOSINOPHILS # (AUTO) 0.3 10^3/uL (0.0-0.3); EOSINOPHILS % (AUTO) 4 % (0-10); LYMPHOCYTES # (AUTO) 2.4 X 10^3 (1.0-4.0); LYMPHOCYTES % (AUTO) 29 % (12-44); MEAN CORPUSCULAR HGB CONC 31 G/DL (32-36); MEAN PLATELET VOLUME 9.5 FL (7.4-10.4); MONOCYTES # (AUTO) 0.8 X 10^3 (0.0-1.0); MONOCYTES % (AUTO) 10 % (0-12); NEUTROPHILS # (AUTO) 4.5 X 10^3 (1.8-7.8); NEUTROPHILS % (AUTO) 55 % (42-75); PLATELET COUNT 317 10^3/uL (130-400)
[2021-01-07] MEDS ORDERED: NS IV 500 ML 500 ML IV ONE (07:30)
[2021-01-07 07:35] LABS: PROTHROMBIN TIME PATIENT 18.8 SEC (12.2-14.7)
--- NOTE | 2021-01-07 07:35 | Diagnostic Imaging Report ---
INDICATION: Chest pain COMPARISON: 11/25/2020 TECHNIQUE: Single radiograph of the chest dated 01/07/2021. FINDINGS: The cardiac silhouette is enlarged, though stable. No significant pulmonary vascular congestion. The lungs are clear of focal pulmonary opacity. No pleural effusion. No pneumothorax. No acute osseous abnormality. IMPRESSION: Similar-appearing examination demonstrating cardiomegaly without pulmonary vascular congestion or additional superimposed acute cardiopulmonary abnormality. Dictated by: Dictated on workstation # [id number]
[2021-01-07 07:36] LABS: INR 1.6 (0.8-1.4)
[2021-01-07 07:39] LABS: CREATININE SERUM 1.38 MG/DL (0.60-1.30)
[2021-01-07 07:40] LABS: ALBUMIN 4.2 GM/DL (3.2-4.5); BILIRUBIN,TOTAL 0.4 MG/DL (0.1-1.0); CALCIUM 9.7 MG/DL (8.5-10.1); MAGNESIUM 2.2 MG/DL (1.6-2.4); TOTAL PROTEIN 7.6 GM/DL (6.4-8.2)
[2021-01-07 07:59] LABS: POTASSIUM 3.9 MMOL/L (3.6-5.0)
[2021-01-07] MEDS ORDERED: ASPIRIN 81 MG CHEW (CHILDREN'S ASA) PO SCH (10:35)
[2021-01-07] MEDS ORDERED: ONDANSETRON 4 MG/2 ML (SDV) Z0FRAN IV PRN (10:45)
[2021-01-07] MEDS ORDERED: NITROGLYCERIN 0.4 MG SL TABS BTL 25'S SL PRN (10:45)
[2021-01-07] MEDS ORDERED: morphine INJ 4 MG/ML 1 ML (VIAL/SYRINGE) IV PRN (10:45)
[2021-01-07] MEDS ORDERED: CATHETER FLUSH 10 ML SYR IV PRN (10:45)
[2021-01-07] MEDS ORDERED: OMG1KC PO (12:35)
[2021-01-07] MEDS ORDERED: DILT360C36 PO (12:35)
[2021-01-07] MEDS ORDERED: ATOR40TA70 PO (12:35)
[2021-01-07] MEDS ORDERED: ACET-2650 PO (12:35)
[2021-01-07] MEDS ORDERED: MAGN250T35 PO (12:35)
[2021-01-07] MEDS ORDERED: NITR0.4T39 SL (12:35)
[2021-01-07] MEDS ORDERED: SUCR1TAB PO (12:35)
[2021-01-07] MEDS ORDERED: MTP25TSR PO (12:35)
[2021-01-07] MEDS: CATHETER FLUSH 10 ML SYR IV SCH ×2 (14:44→20:16)
[2021-01-07] MEDS ORDERED: ISOSORBIDE MONONITRATE 30 MG (IMDUR) TAB PO ONE (16:15)
--- NOTE | 2021-01-07 16:22 | Consultation-Cardiology ---
HPI-Cardiology Cardiology Consultation: Date of Consultation 01/07/2021 Date of Admission 01/07/2021 Attending Physician Tameka Burnett MD Admitting Physician [facility] Consulting Physician MILA FISCHER JR, MD HPI: Time Seen by a Provider: 16:16 Chief Complaint: Reason for consultation: Chest pain in the setting of known coronary artery disease. Michaela is a pleasant 85-year-old female with an extensive past cardiac history including cardiomyopathy artery disease with previous stents, severe hypertension, and atrial fibrillation. About 3 or 4 days ago she started developing exertional chest tightness. This was in the center of her chest and would radiate towards the left and right side. She would get relief with rest. Sometimes just getting up and walking across the room would bring on the chest discomfort. At times this would make her feel more short of breath. 2 nights ago she actually woke up in the middle of night short of breath. She sat up in bed and waited for this to pass. She denies any orthopnea. This morning the chest discomfort recurred and she took 1 sublingual nitroglycerin which seemed to help decrease the discomfort but it did not completely resolve. As such, she came to the emergency room for further evaluation. Since being on the floor, she states that she is comfortable when she is laying in bed. However, if she gets up to use the bathroom, her chest tightness will recur. Prior to her stents, she states she was having left arm pain. This chest discomfort is a new symptom. She has had some lightheaded spells if she gets up too quickly but denies any syncope. She denies palpitations or ankle edema. Because of the chest discomfort, a cardiology consultation was requested. She has received both of her Covid vaccinations with the first 1 being back in July. Certain portions of this document may have been dictated utilizing voice recognition technology. Inherent to this technology, typographical and grammatical errors may exist. As much as I am diligent to identify and correct these mistakes, some errors may remain in the document. Review of Systems-Cardiology Review of Systems Other comments Review of 10 organ systems is as per the history of present illness, otherwise negative. All Other Systems Reviewed Negative Unless Noted: Yes GWE-Giwfwm-Sehnyt Hx Patient Social History Smoking Status: Never a Smoker 2nd Hand Smoke Exposure: No Have you traveled recently?: No Alcohol Use?: No Pt feels they are or have been: No Immunizations Up To Date Date of Pneumonia Vaccine: Nov 15, 2013 Date of Influenza Vaccine: Mar 07, 2020 Past Medical History PMH As described under Assessment. Family Medical History Family Medical History: The patient does not know of any family history of premature coronary artery disease. Allergies and Home Medications Allergies Coded Allergies: Penicillins (Verified Allergy, Unknown, 07/21/18) propoxyphene (Verified Allergy, Unknown, 07/21/18) amiodarone (Verified Adverse Reaction, Unknown, NAUSEA, 01/07/21) Home Medications Acetaminophen 650 Mg Tablet.er, 650-1,300 MG PO Q8H PRN for PAIN-MILD (1-4), (Reported) Last Action: Reviewed Aspirin 81 Mg Tablet.dr, 81 MG PO DAILY, (Reported) Last Action: Reviewed Atorvastatin Calcium 40 Mg Tablet, 40 MG PO DAILY, (Reported) Last Action: Reviewed Diltiazem HCl 60 Mg Tablet, 60 MG PO PRN PRN for PULSE OVER 100, (Reported) Last Action: Reviewed Diltiazem HCl 360 Mg Cap.er.24h, 360 MG PO DAILY, (Reported) Last Action: Reviewed Fluticasone/Salmeterol 1 Each Blst.w.dev, 1 PUFF INH BID PRN for SHORTNESS OF BREATH, (Reported) Last Action: Reviewed Furosemide 40 Mg Tablet, 40 MG PO DAILY, (Reported) Last Action: Reviewed Levothyroxine Sodium 25 Mcg Tablet, 25 MCG PO DAILY, (Reported) Last Action: Reviewed Magnesium Oxide 250 Mg Tablet, 250 MG PO DAILY, (Reported) Last Action: Reviewed Meclizine HCl 25 Mg Tablet, 25 MG PO TID PRN for DIZZINESS, (Reported) Last Action: Reviewed Metoclopramide HCl 5 Mg Tablet, 5 MG PO TID PRN for NAUSEA/VOMITING-3RD LINE, (Reported) Last Action: Reviewed Metoprolol Succinate 25 Mg Tab.er.24h, 25 MG PO 1200, (Reported) Last Action: Reviewed Nitroglycerin 0.4 Mg Tab.subl, 0.4 MG SL UD PRN for CHEST PAIN, (Reported) Last Action: Reviewed [place] 3 Polyunsat Fatty Acids 1,000 Mg Cap, 1,000 MG PO TID, (Reported) Last Action: Reviewed Pantoprazole Sodium 40 Mg Tablet.dr, 40 MG PO DAILY, (Reported) Last Action: Reviewed Potassium Chloride 20 Meq Tab.er.prt, 20 MEQ PO DAILY, (Reported) Last Action: Reviewed Rivaroxaban 20 Mg Tablet, 20 MG PO 1800 W/MEAL, (Reported) Last Action: Reviewed Sucralfate 1 Gm Tablet, 1 GM PO ACHS, (Reported) LAST FILLED 08-19-2020 #240/60 DAY SUPPLY Last Action: Reviewed Patient Home Medication List Home Medication List Reviewed: Yes Exam Vital Signs Vital Signs Date Time Temp Pulse Resp B/P (MAP) Pulse Ox O2 Delivery O2 Flow Rate FiO2 01/07/21 16:07 36.6 01/07/21 15:08 85 18 161/89 (113) 97 Room Air Physical Exam General: Alert. No acute distress. Well nourished and appears stated age. She is obese. Eye: Extraocular movements are intact. Conjunctivae are clear. There are no xanthelasma. HENT: Normocephalic. Atraumatic. Carotid pulsations 2/2 without bruits. Neck: Jugular venous pressure does not appear elevated. No thyromegaly appreciated. Respiratory: Lungs are clear to auscultation. Respirations are non-labored. Breath sounds are equal. Symmetrical chest wall expansion. Cardiovascular: Normal rate. Irregular rhythm. No murmur. No gallop. Point of maximal impulse is not appear displaced. Good pulses equal in all extremities. No edema. Gastrointestinal: Soft. Normal bowel sounds. Skin: Skin turgor is normal. There is no pallor. Musculoskeletal: No kyphosis or scoliosis appreciated. Neurologic: Alert and oriented to person, place, time. Cranial nerves 3-12 appear grossly intact. The patient has good motor tone strength in the upper and lower extremities bilaterally. Psychiatric: Cooperative. Appropriate mood & affect. Labs Laboratory Tests Test 01/07/21 07:00 Range/Units White Blood Count 8.1 4.3-11.0 10^3/uL Red Blood Count 5.01 4.35-5.85 10^6/uL Hemoglobin 12.9 11.5-16.0 G/DL Hematocrit 41 35-52 % Mean Corpuscular Volume 82 80-99 FL Mean Corpuscular Hemoglobin 26 25-34 PG Mean Corpuscular Hemoglobin Concent 31 L 32-36 G/DL Red Cell Distribution Width 15.1 H 10.0-14.5 % Platelet Count 317 130-400 10^3/uL Mean Platelet Volume 9.5 7.4-10.4 FL Immature Granulocyte % (Auto) 1 % Neutrophils (%) (Auto) 55 42-75 % Lymphocytes (%) (Auto) 29 12-44 % Monocytes (%) (Auto) 10 0-12 % Eosinophils (%) (Auto) 4 0-10 % Basophils (%) (Auto) 1 0-10 % Neutrophils # (Auto) 4.5 1.8-7.8 X 10^3 Lymphocytes # (Auto) 2.4 1.0-4.0 X 10^3 Monocytes # (Auto) 0.8 0.0-1.0 X 10^3 Eosinophils # (Auto) 0.3 0.0-0.3 10^3/uL Basophils # (Auto) 0.1 0.0-0.1 10^3/uL Immature Granulocyte # (Auto) 0.0 0.0-0.1 10^3/uL Prothrombin Time 18.8 H 12.2-14.7 SEC INR Comment 1.6 H 0.8-1.4 Activated Partial Thromboplast Time 39 H 24-35 SEC Sodium Level 138 135-145 MMOL/L Potassium Level 3.9 3.6-5.0 MMOL/L Chloride Level 102 98-107 MMOL/L Carbon Dioxide Level 26 21-32 MMOL/L Anion Gap 10 5-14 MMOL/L Blood Urea Nitrogen 25 H 7-18 MG/DL Creatinine 1.38 H 0.60-1.30 MG/DL Estimat Glomerular Filtration Rate 36 BUN/Creatinine Ratio 18 Glucose Level 133 H 70-105 MG/DL Calcium Level 9.7 8.5-10.1 MG/DL Corrected Calcium 9.5 8.5-10.1 MG/DL Magnesium Level 2.2 1.6-2.4 MG/DL Total Bilirubin 0.4 0.1-1.0 MG/DL Aspartate Amino Transf (AST/SGOT) 20 5-34 U/L Alanine Aminotransferase (ALT/SGPT) 17 0-55 U/L Alkaline Phosphatase 129 40-136 U/L Myoglobin 71.2 10.0-92.0 NG/ML Troponin I < 0.30 <0.30 NG/ML Pro-B-Type Natriuretic Peptide 1359.0 H <75.0 PG/ML Total Protein 7.6 6.4-8.2 GM/DL Albumin 4.2 3.2-4.5 GM/DL Radiology PHARMACOLOGIC NUCLEAR STRESS TEST (09/30/2020): 1. Patient tolerated Lexiscan well. 2. Baseline atrial fibrillation persisted during test. 3. Breast attenuation with typical female pattern, no significant Ischemia or infarction on SPECT images. 4. Baseline high-pitched tension persists during test. 5. Normal left ventricular size, EF 71%. ECHOCARDIOGRAM (08/20/2020): 1. Normal left ventricular chamber size, wall thickness and systolic function with an estimated ejection fraction of 55-65%. 2. Mild left atrial dilatation at 4.3 cm. 4. Aortic valve sclerosis. 5. The estimated pulmonary artery systolic pressure is 45-50 mmHg. ECG Impression ECG Comment Atrial fibrillation with a ventricular rate of [address]-T wave changes. Diagnosis/Problems Diagnosis/Problems (1) Coronary artery disease with unstable angina pectoris Assessment & Plan: She is having symptoms concerning for unstable angina. Fortunately, her first troponin level was negative and she does not have any ischemic changes on her electrocardiogram. Furthermore, she had a nuclear stress test 4 months ago that was normal. I recommend resuming her aspirin, beta-alis, and statin medication. I will start her on long-acting nitrates. If she continues to have chest discomfort overnight, we may need to consider further evaluation with a cardiac catheterization. I recommend holding her rivaroxaban for this evening in the event she does not fact need a cardiac catheterization. (2) Permanent atrial fibrillation Assessment & Plan: She had some tachycardia in the emergency room and was treated with 1 dose of IV diltiazem. Her heart rates improved. I will resume her outpatient doses of diltiazem and metoprolol. We will hold rivaroxaban this evening in the event she needs a cardiac catheterization tomorrow. Since this will be held for only 24 hours, she does not need to be bridged with enoxaparin or intravenous heparin. (3) Essential hypertension Assessment & Plan: Her blood pressure was elevated on arrival to the emergency room. This improved with the IV diltiazem. As above, I will resume her regular dose of outpatient medication. (4) Pulmonary hypertension Assessment & Plan: I suspect this is multifactorial in etiology. She wears oxygen at night. This will need to be monitored longitudinally. (5) Mixed hyperlipidemia Assessment & Plan: Resume statin medication. (6) Obstructive sleep apnea (adult) (pediatric) Assessment & Plan: She did not tolerate CPAP in the past. She wears oxygen at night which is a new means for treatment of sleep apnea. It is conceivable that the untreated sleep apnea could be contributing to some of her symptoms. This may need to be readdressed after discharge. MILA FISCHER JR, MD Jan 07, 2021 16:22
--- NOTE | 2021-01-07 19:45 | History & Physical ---
HPI History of Present Illness: 85 yo F with extensive cardiac history. She follows with Dr Reyez as her primary wrist hemmer. States that yesterday she had some chest tightness that went away when she rested. She was up walking around her house. This AM her pain came back and she took a nitro that improved her symptoms but did not resolve them and that is when she came to the ER. Recent Stress test 4 months ago that was normal. Patient does have several stents in place and they required a balloon last year. Currently this AM states that she is not having any more chest pain or shortness of breath. Source: patient Exam Limitations: no limitations Date seen by provider: Jan 07, 2021 Time Seen by Provider: 08:45 Attending Physician Flor Burnett MD [facility] [place] Consult Date of Admission Jan 07, 2021 at 10:20 Home Medications Home Medications Reviewed patient Home Medication Reconciliation performed by pharmacy medication reconciliations smog technician and/or nursing. Patients Allergies have been reviewed. Allergies Coded Allergies: Penicillins (Verified Allergy, Unknown, 07/21/18) propoxyphene (Verified Allergy, Unknown, 07/21/18) amiodarone (Verified Adverse Reaction, Unknown, NAUSEA, 01/07/21) OLU-Wimoxn-Lotsbx Hx Patient Social History Smoking Status: Never a Smoker 2nd Hand Smoke Exposure: No Recent Hopitalizations: No Alcohol Use?: No Have you traveled recently?: No Immunizations Up To Date Date of Pneumonia Vaccine: Nov 15, 2013 Date of Influenza Vaccine: Mar 07, 2020 Past Medical History CAD w/ 2 stents placed in 2012 Atrial Fibrillation on OAC HLD Pre DM HTN Hypothyroidism CRISTEL: did not tolerate CPAP Family Medical History Significant Family History: No Pertinent Family Hx Review of Systems (CH[facility]) Constitutional: no symptoms reported; No dizziness, No fever, No malaise, No weakness EENTM: no symptoms reported; No nose congestion, No nose pain, No throat pain Respiratory: No cough; dyspnea on exertion; No orthopnea Cardiovascular: chest pain; No edema; palpitations Gastrointestinal: no symptoms reported; No abdominal pain, No constipation, No diarrhea, No nausea, No vomiting Genitourinary: no symptoms reported; No dysuria, No frequency, No hematuria : No Musculoskeletal: back pain; No joint pain, No muscle pain Skin: no symptoms reported; No lesions, No rash Psychiatric/Neurological: No Symptoms Reported Reviewed Test Results Reviewed Test Results Lab Laboratory Tests Test 01/07/21 07:00 Range/Units White Blood Count 8.1 4.3-11.0 10^3/uL Red Blood Count 5.01 4.35-5.85 10^6/uL Hemoglobin 12.9 11.5-16.0 G/DL Hematocrit 41 35-52 % Mean Corpuscular Volume 82 80-99 FL Mean Corpuscular Hemoglobin 26 25-34 PG Mean Corpuscular Hemoglobin Concent 31 L 32-36 G/DL Red Cell Distribution Width 15.1 H 10.0-14.5 % Platelet Count 317 130-400 10^3/uL Mean Platelet Volume 9.5 7.4-10.4 FL Immature Granulocyte % (Auto) 1 % Neutrophils (%) (Auto) 55 42-75 % Lymphocytes (%) (Auto) 29 12-44 % Monocytes (%) (Auto) 10 0-12 % Eosinophils (%) (Auto) 4 0-10 % Basophils (%) (Auto) 1 0-10 % Neutrophils # (Auto) 4.5 1.8-7.8 X 10^3 Lymphocytes # (Auto) 2.4 1.0-4.0 X 10^3 Monocytes # (Auto) 0.8 0.0-1.0 X 10^3 Eosinophils # (Auto) 0.3 0.0-0.3 10^3/uL Basophils # (Auto) 0.1 0.0-0.1 10^3/uL Immature Granulocyte # (Auto) 0.0 0.0-0.1 10^3/uL Prothrombin Time 18.8 H 12.2-14.7 SEC INR Comment 1.6 H 0.8-1.4 Activated Partial Thromboplast Time 39 H 24-35 SEC Sodium Level 138 135-145 MMOL/L Potassium Level 3.9 3.6-5.0 MMOL/L Chloride Level 102 98-107 MMOL/L Carbon Dioxide Level 26 21-32 MMOL/L Anion Gap 10 5-14 MMOL/L Blood Urea Nitrogen 25 H 7-18 MG/DL Creatinine 1.38 H 0.60-1.30 MG/DL Estimat Glomerular Filtration Rate 36 BUN/Creatinine Ratio 18 Glucose Level 133 H 70-105 MG/DL Calcium Level 9.7 8.5-10.1 MG/DL Corrected Calcium 9.5 8.5-10.1 MG/DL Magnesium Level 2.2 1.6-2.4 MG/DL Total Bilirubin 0.4 0.1-1.0 MG/DL Aspartate Amino Transf (AST/SGOT) 20 5-34 U/L Alanine Aminotransferase (ALT/SGPT) 17 0-55 U/L Alkaline Phosphatase 129 40-136 U/L Myoglobin 71.2 10.0-92.0 NG/ML Troponin I < 0.30 <0.30 NG/ML Pro-B-Type Natriuretic Peptide 1359.0 H <75.0 PG/ML Total Protein 7.6 6.4-8.2 GM/DL Albumin 4.2 3.2-4.5 GM/DL Physical Exam-([facility]) Physical Exam Vital Signs VS - Last 72 Hours, by Label 01/07/21 01/07/21 01/07/21 01/07/21 06:58 06:58 08:40 10:00 Temp 35.8 36.0 Pulse 118 81 73 Resp 20 18 14 B/P (MAP) 181/116 (137) 140/63 155/100 (118) Pulse Ox 97 96 96 O2 Delivery Room Air Room Air Room Air Room Air 01/07/21 01/07/21 01/07/21 01/07/21 10:25 10:35 11:09 11:51 Temp 36.6 Pulse 102 86 86 Resp 20 18 B/P (MAP) 156/103 (120) 152/85 (107) Pulse Ox 95 96 O2 Delivery Room Air Room Air Room Air 01/07/21 01/07/21 01/07/21 01/07/21 13:00 13:02 15:08 16:07 Temp 36.6 Pulse 87 83 85 Resp 18 18 B/P (MAP) 148/79 (102) 161/89 (113) Pulse Ox 97 97 O2 Delivery Room Air Room Air 01/07/21 01/07/21 01/07/21 17:14 17:20 18:14 Temp 35.9 Pulse 86 86 81 Resp 18 18 18 B/P (MAP) 163/103 (123) 176/82 (113) 119/79 (92) Pulse Ox 97 96 96 O2 Delivery Room Air Room Air Room Air Capillary Refill : Less Than 3 Seconds General Appearance: WD/WN, no apparent distress HEENT: PERRL/EOMI Neck: non-tender, full range of motion, supple Respiratory: chest non-tender, lungs clear, normal breath sounds, no respiratory distress, no accessory muscle use Cardiovascular: normal peripheral pulses, no murmur, irregularly irregular Gastrointestinal: normal bowel sounds, non tender, soft, no organomegaly Back: no CVA tenderness, no vertebral tenderness Extremities: normal range of motion, non-tender, normal inspection, no calf tenderness, normal capillary refill Neurologic/Psychiatric: electrical design technician II-XII nml as tested, no motor/sensory deficits, alert, normal mood/affect, oriented x 3 Skin: normal color, warm/dry Lymphatic: no adenopathy Assessment/Plan Assessment/Plan Admission Status: Observation (1) Coronary artery disease with unstable angina pectoris Status: Acute Assessment & Plan: - Cardiology consulted, appreciate recommendations, Trending CE Qualifiers: Qualified Codes: I25.110 - Atherosclerotic heart disease of [place] coronary artery with unstable angina pectoris (2) Permanent atrial fibrillation Status: Chronic Assessment & Plan: - Now rate controlled, will continue to monitor, holding OAC tonight due to possible cath in the AM (3) CKD (chronic kidney disease) Status: Chronic Assessment & Plan: - Reviewed prior kidney function and patient is at baseline Qualifiers: Qualified Codes: N18.32 - Chronic kidney disease, stage 3b (4) Obstructive sleep apnea (adult) (pediatric) Status: Chronic Assessment & Plan: - Wears oxygen at night, unable to tolerate CPAP previously (5) Mixed hyperlipidemia Status: Chronic Assessment & Plan: - Continue statin (6) Essential hypertension Status: Chronic (7) Obesity Status: Chronic Qualifiers: Qualified Codes: E66.01 - Morbid (severe) obesity due to excess calories; Z68.38 - Body mass index [BMI] 38.0-38.9, adult (8) Hypothyroidism Status: Chronic Assessment & Plan: - Continue home meds Qualifiers: Qualified Codes: E03.9 - Hypothyroidism, unspecified Clinical Quality Measures AMI/AHF: ASA po Prior to arrival: Yes FLOR BURNETT MD Jan 07, 2021 19:45
[2021-01-07] MEDS ORDERED: RT--FLUTICASONE/SALMETEROL 113-14 (AIRDUO RespiCLICK) IH PRN (20:00)
[2021-01-07] MEDS: ACETAMINOPHEN 500 MG TAB (TYLENOL) PO PRN (20:31)
[2021-01-08] VITALS (9 sets, daily range): BP systolic 110–164; BP diastolic 78–92
[2021-01-08 04:23] LABS: BASOPHILS # (AUTO) 0.1 10^3/uL (0.0-0.1); BASOPHILS % (AUTO) 1 % (0-10); EOSINOPHILS # (AUTO) 0.2 10^3/uL (0.0-0.3); EOSINOPHILS % (AUTO) 3 % (0-10); HEMATOCRIT 38 % (35-52); HEMOGLOBIN 11.7 g/dL (11.5-16.0); LYMPHOCYTES # (AUTO) 1.5 10^3/uL (1.0-4.0); LYMPHOCYTES % (AUTO) 19 % (12-44); MEAN CORPUSCULAR HEMOGLOBIN 26 pg (25-34); MEAN CORPUSCULAR HGB CONC 31 g/dL (32-36); MEAN CORPUSCULAR VOLUME 84 fL (80-99); MEAN PLATELET VOLUME 9.5 fL (9.0-12.2); MONOCYTES # (AUTO) 0.8 10^3/uL (0.0-1.0); MONOCYTES % (AUTO) 10 % (0-12); NEUTROPHILS % (AUTO) 66 % (42-75); PLATELET COUNT 252 10^3/uL (130-400); WHITE BLOOD COUNT 7.5 10^3/uL (4.3-11.0)
[2021-01-08 04:34] LABS: POTASSIUM 4.1 MMOL/L (3.6-5.0)
[2021-01-08 04:35] LABS: CALCIUM 9.2 MG/DL (8.5-10.1)
[2021-01-08 04:39] LABS: CREATININE SERUM 1.31 MG/DL (0.60-1.30)
[2021-01-08] MEDS: CATHETER FLUSH 10 ML SYR IV SCH ×3 (05:16→20:27)
[2021-01-08] MEDS ORDERED: ASPIRIN E.C. 81 MG (ECOTRIN) TAB PO SCH (09:00)
[2021-01-08] MEDS ORDERED: RIVAROXABAN 20 MG TABLET (XARELTO) PO SCH ×2 (09:00→17:00)
[2021-01-08] MEDS ORDERED: meTOprolol 5 MG/5 ML (LOPRESSOR) VIAL IV ONE (09:00)
[2021-01-08] MEDS ORDERED: LIDOCAINE 1% INJ 20 ML 20 ML VIAL ONE (09:24)
[2021-01-08] MEDS ORDERED: fentaNYL INJ 100 MCG/2 ML AMP ONE (09:24)
[2021-01-08] MEDS ORDERED: HEParin (CATH LAB) 2,000 ML IV ONE (09:24)
[2021-01-08] MEDS ORDERED: MIDAZOLAM 5 MG/5 ML (VERSED) VIAL ONE (09:24)
[2021-01-08] MEDS ORDERED: NS IV 1000 ML 1,000 ML ONE (09:25)
--- NOTE | 2021-01-08 09:38 | Cardiology Progress Note ---
Subjective Date Seen by Provider: Jan 08, 2021 Time Seen by Provider: 09:32 Subjective/Events-last exam Patient is in bed, complaining of chest pain with exertion. Reports episode of chest pain while walking to bathroom this morning, now resolved. Review of Systems General: No Chills, No Night Sweats, No Fatigue, No Malaise, No Appetite, No Other HEENT: No Head Aches, No Visual Changes, No Eye Pain, No Ear Pain, No Dysphasia, No Sinus Congestion, No Post Nasal Drip, No Sore Throat, No Other Pulmonary: No Dyspnea, No Cough, No Pleuritic Chest Pain, No Other Cardiovascular: Chest Pain; No: Palpitations, Orthopnea, Paroxysmal Noc. Dyspnea, Edema, Lt Headedness, Other Objective-Cardiology Exam Last Set of Vital Signs Vital Signs 01/08/21 01/08/21 08:00 08:27 Temp 36.4 Pulse 98 Resp 18 B/P (MAP) 164/86 (112) Pulse Ox 94 O2 Delivery Room Air I&O Intake and Output 01/08/21 00:00 Intake Total 1260 ml Output Total 450 ml Balance 810 ml Intake Oral 760 ml IV Total 500 ml Output Urine Total 450 ml Daily Weight Change No General: Alert, Oriented X3, Cooperative HEENT: Atraumatic, PERRLA Neck: Supple, No JVD, No Thyromegaly Lungs: Clear to Auscultation, Normal Air Movement Heart: Normal S1, Normal S2, Other (irregularly irregular, tachycardic. ) Extremities: No Clubbing, No Cyanosis Skin: No Rashes, No Breakdown Neuro: Normal Speech Psych/Mental Status: Mental Status NL, Mood NL Results Lab Laboratory Tests 01/08/21 04:17 A/P-Cardiology Admission Diagnosis Chest pain CAD afib HTN Assessment/Plan Chest pain, resembling unstable angina. EKG showing AFib, slightly tachycardic, so acute ST changes. Initial troponin negative. Continues to have chest pain with exertion, planning for LHC this morning. Coronary artery disease, History of multiple interventions in the past, had a total of 3 stents. Underwent cardiac catheterization on November 15, 2018 revealing moderate stenosis at the ostium of the right coronary artery, heavily calcified. 2 stents in the mid right coronary artery are patent with small vessel disease distally. Calcified left main coronary artery is moderate stenosis, nonobstructive disease. Patent stents in the mid circumflex complex artery with no obstructive disease, mild disease in LAD. Repeat cardiac catheterization was done on June 29, 2019 at balloon angioplasty to the mid right coronary artery and stenting of the ostium of the right coronary artery using Maryann 3 x 15 mm expanded to 3.25 mm with excellent results. Still have moderate stenosis at the mid left main, mid LAD and mid circumflex artery, small vessel disease. Treated medically. Stress test done September 2020 showing no ischemia or infarct. Patient having unstable angina, will proceed with [facility] Persistent atrial fibrillation, chronic, tachycardic this morning, maintained on diltiazem 360mg and Toprol XL as outpatient. I will give IV Lopressor, restart home medications. Echocardiogram done in August 2020 showing normal LV size with EF 55-65%, Aortic sclerosis without stenosis, PA 45-50mmHg. Intolerance to amiodarone with severe nausea and abdominal pain and discomfort Peripheral edema, improved. Hypertension, controlled, continue to monitor Hyperlipidemia, controlled, continue to monitor Carotid artery stenosis, mild bilateral nonobstructive disease per carotid duplex done August 2020. Patient was seen and evaluated with Liliam, examination performed, management plan was discussed, agree with the current scribed note, I made few changes to the note using Italic font Patient has been reporting recurrent chest pain, had unstable angina Decided to proceed with cardiac catheterization possible PTCA which was carried out showing severe in-stent restenosis in the mid and ostial right coronary artery, complex intervention with multiple balloon angioplasty then deployment of 3 x 15 drug-eluting stent expanded to 3.2 mm with excellent results at the ostium, balloon angioplasty to the mid right coronary artery. Patient will be started on aspirin, Plavix and Xarelto for 1 month then continue on Plavix and Xarelto Restart metoprolol and diltiazem and monitor heart rate and blood pressure response Supervisory-Addendum Brief Supervisory Addendum Participated in pt care: history, MDM, physical Personally performed: exam, history, MDM Care discussed with: MARLA Results interpretation: Verified all documentation LILIAM POWERS Jan 08, 2021 09:37 GEOFF THOMSON MD Jan 08, 2021 10:46
[2021-01-08] MEDS ORDERED: meTOprolol 5 MG/5 ML (LOPRESSOR) VIAL ONE (10:05)
[2021-01-08] MEDS ORDERED: NITRO DRIP 25000 MCG/D5W 0 ML IV ONE (10:08)
[2021-01-08] MEDS ORDERED: HEParin 1000 UNIT/ML (10ML VIAL) FOR BOLUS ONE (10:08)
[2021-01-08] MEDS ORDERED: ATROPINE INJECTION 1 MG/10 ML SYR (ABBOTT) ONE (10:21)
[2021-01-08] MEDS ORDERED: ASPIRIN 325 MG (5 GR) TABLET ONE (10:39)
[2021-01-08] MEDS ORDERED: CLOPIDOGREL 300 MG (PLAVIX) TABLET PO ONE (10:39)
--- NOTE | 2021-01-08 10:42 | Conscious Sedation/ASA ---
Conscious Sedation Pre-Proced Time 10:00 ASA Score 3 For ASA 3 and 4: Consider anesthesia and medical clearance. Also, for patients with a history of failed moderate sedation consider anesthesia. Airway Lungs Heart ASA score ASA 1: a normal healthy patient ASA 2: a patient with a mild systemic disease (mid diabetes, controlled hypertension, obesity x ASA 3: a patient with a severe systemic disease that limits activity (angina, COPD, prior Myocardial infarction) ASA 4: a patient with an incapacitating disease that is a constant threat to life (CHF, renal failure) ASA 5: a moribund patient not expected to survive 24 hrs. (ruptured aneurysm) ASA 6: a declared brain- patient whose organs are being harvested. For emergent operations, add the letter E after the classification Mallampati Classification Grade 3 Sedation Plan Analgesia, Amnesia, Plan communicated to team members, Discussed options with patient/fam, Discussed risks with patient/fam The patient is an appropriate candidate to undergo the planned procedure, sedation, and anesthesia. The patient immediately re-assessed prior to indication. GEOFF THOMSON MD Jan 08, 2021 10:42
[2021-01-08] MEDS ORDERED: PATIENT MAY USE OWN MEDS, ALL PO SCH (10:45)
--- NOTE | 2021-01-08 10:55 | Cardiac Cath Report ---
Cardiac Cath Report Physician (s)/Senior Web Applications Developer (s) Physician GEOFF THOMSON MD Pre-Procedure Diagnosis Pre-Procedure Diagnosis: chest pain, coronary artery disease Post-Procedure Note Procedure Start Date: Jan 08, 2021 Name of Procedure: Left heart catheterization Balloon angioplasty to the mid right coronary artery Cutting Balloon to the ostium of the right coronary artery Drug-eluting stent deployment to the ostium of the right coronary artery Findings/Procedure Note PROCEDURE NOTE: 85-year-old lady with history of coronary artery disease multiple intervention in the past, admitted with unstable angina, scheduled for cardiac catheterization possible PTCA due to active recurrent chest pain. After explaining the procedure to the patient, all pros and cons were explained, all questions were answered. The patient signed the consent and then she was placed on the cardiac catheterization laboratory. Groin was prepped SL fashion local anesthesia was used. Sheath placed in the right femoral artery. Ramirez right and left catheter were used to access the coronary system. Ramirez right catheter was prolapsed to the left ventricular cavity, pressure was measured, pullback LV to aorta was done. Patient has severe in-stent restenosis in the mid right coronary artery and ostial right coronary artery I decided to proceed with percutaneous i ntervention. FIR guide with sideholes was advanced to the right coronary artery, BMW wire was advanced and parked distally. I started with 3 x 15 trek balloon did multiple inflation in the mid right coronary artery with excellent results then I pulled it to the ostium and after one inflation the balloon ruptured I exchanged the balloon and used noncompliant balloon and again at 18 ta the balloon ruptured then I advanced [place] cutting balloon 3 x 10 and did multiple inflation at the ostium at 6 ta, then I advanced the pressure to 12 ta and the balloon ruptured subsequently I decided to stent the ostium and placed Maryann 3 x 12 mm deployed under 16 ta to 3.2 mm with excellent results and positioning, angiogram showed excellent results At the end of the procedure the sheath was removed. Closure device was deployed FINDINGS: Hemodynamics LV 142/8, end-diastolic pressure of 8 Aorta 140/87 mean of 109 ANATOMY: Left Main has mild to moderate mid stenosis, did not change compared to the previous study. Left Anterior Descending has mild disease in the mid LAD nonobstructive disease Left Circumflex has mild disease nonobstructive disease Right Coronary Artery has ostial/proximal stent with proximal lesion to the stent, complex intervention with multiple balloon angioplasty and cutting balloon and noncompliant balloon then deployment of Maryann 3 x 12 mm expanded to 3.2 mm with excellent results. Severe in-stent restenosis in the mid right coronary artery successful balloon angioplasty using 3 x 20 mm balloon with multiple inflation with excellent results LV Gram was not done, pressure was measured CONCLUSION: 1. Severe ostial right coronary artery stenosis, the previous stent was slightly beyond it, complex intervention with recurrent rupture of the balloon at the ostium due to heavy calcification, using 3 x 15 mm trek balloon then noncompliant balloon then [place] cutting balloon then deployment of Maryann 3 x 12 mm expanded to 3.2 mm with excellent results 2. Severe in-stent restenosis in the mid right coronary artery successful multiple balloon inflation using trek 3 x 15 mm with excellent results 3. Mild to moderate mid left main coronary artery stenosis did not change compared to the previous study 4. Mild disease in the LAD and circumflex artery nonobstructive disease 5. Normal left ventricular end-diastolic pressure DISCUSSION AND RECOMMENDATION: Continue to maximize medical therapy, patient has been on Xarelto, I will add aspirin and Plavix for 1 month then stop aspirin and continue on Xarelto and Plavix Anesthesia Type: Conscious Sedation Estimated blood loss (mL): 25 ml Contrast Amount: 122 ml Total Radiation Dose: 1180 mGy Post-Procedure Diagnosis Post-operative diagnosis: Unstable angina Coronary artery disease Permanent atrial fibrillation Hypertension (1) Coronary artery disease with unstable angina pectoris Assessment & Plan: She is having symptoms concerning for unstable angina. Fortunately, her first troponin level was negative and she does not have any ischemic changes on her electrocardiogram. Furthermore, she had a nuclear stress test 4 months ago that was normal. I recommend resuming her aspirin, beta-alis, and statin medication. I will start her on long-acting nitrates. If she continues to have chest discomfort overnight, we may need to consider further evaluation with a cardiac catheterization. I recommend holding her rivaroxaban for this evening in the event she does not fact need a cardiac catheterization. Qualifiers: Qualified Codes: I25.110 - Atherosclerotic heart disease of [place] coronary artery with unstable angina pectoris (2) Permanent atrial fibrillation Assessment & Plan: She had some tachycardia in the emergency room and was treated with 1 dose of IV diltiazem. Her heart rates improved. I will resume her outpatient doses of diltiazem and metoprolol. We will hold rivaroxaban this evening in the event she needs a cardiac catheterization tomorrow. Since this will be held for only 24 hours, she does not need to be bridged with enoxaparin or intravenous heparin. (3) Essential hypertension Assessment & Plan: Her blood pressure was elevated on arrival to the emergency room. This improved with the IV diltiazem. As above, I will resume her regular dose of outpatient medication. (4) Pulmonary hypertension Assessment & Plan: I suspect this is multifactorial in etiology. She wears oxygen at night. This will need to be monitored longitudinally. (5) Mixed hyperlipidemia Assessment & Plan: Resume statin medication. (6) Obstructive sleep apnea (adult) (pediatric) Assessment & Plan: She did not tolerate CPAP in the past. She wears oxygen at night which is a new means for treatment of sleep apnea. It is conceivable that the untreated sleep apnea could be contributing to some of her symptoms. This may need to be readdressed after discharge. GEOFF THOMSON MD Jan 08, 2021 10:55
[2021-01-08] MEDS: ISOSORBIDE MONONITRATE 30 MG (IMDUR) TAB PO SCH (13:22)
[2021-01-08] MEDS: PANTOPRAZOLE 40 MG (PROTONIX) TAB PO SCH (13:22)
[2021-01-08] MEDS: LEVOTHYROXINE 25 MCG (LEVOTHROID) TAB PO SCH (13:23)
[2021-01-08] MEDS: NS IV 1000 ML 1,000 ML IV SCH ×2 (13:23→17:53)
[2021-01-08] MEDS: ACETAMINOPHEN 500 MG TAB (TYLENOL) PO PRN (15:23)
[2021-01-08] MEDS ORDERED: RIVAROXABAN 15 MG TABLET (XARELTO) PO SCH (17:00)
--- NOTE | 2021-01-08 20:30 | Progress Note ---
Subjective Subjective/Events-last exam Patient still having some chest tightness. Denies any chest pain like that what brought her in. She is currently NPO for possible cath. Review of Systems Pulmonary: Dyspnea; No Cough Cardiovascular: Chest Pain; No: Palpitations, Edema Gastrointestinal: No: Nausea, Vomiting, Abdominal Pain, Diarrhea, Constipation Genitourinary: No Dysuria, No Frequency Neurological: Weakness; No: Incoordination, Confusion Objective Exam Last Set of Vital Signs Vital Signs Date Time Temp Pulse Resp B/P (MAP) Pulse Ox O2 Delivery O2 Flow Rate FiO2 01/08/21 19:40 36.9 89 28 110/92 (98) 95 Room Air Capillary Refill : Less Than 3 Seconds I&O Intake and Output 01/08/21 00:00 Intake Total 1260 ml Output Total 450 ml Balance 810 ml Intake Oral 760 ml IV Total 500 ml Output Urine Total 450 ml Daily Weight Change No General: Alert, Oriented X3, Cooperative, No Acute Distress HEENT: Mucous Memb Moist/[place] Lungs: Clear to Auscultation, Normal Air Movement Heart: Regular Rate, No Murmurs Abdomen: Normal Bowel Sounds, Soft, No Tenderness, No Masses Extremities: No Edema, No Tenderness/Swelling Skin: No Rashes, No Breakdown Neuro: Strength at 5/5 X4 Ext, Cranial Nerves 3-12 NL Psych/Mental Status: Mental Status NL, Mood NL Results/Procedures Lab Laboratory Tests 01/08/21 04:17: White Blood Count 7.5, Red Blood Count 4.47, Hemoglobin 11.7, Hematocrit 38, Mean Corpuscular Volume 84, Mean Corpuscular Hemoglobin 26, Mean Corpuscular Hemoglobin Concent 31L, Red Cell Distribution Width 14.6H, Platelet Count 252, Mean Platelet Volume 9.5, Immature Granulocyte % (Auto) 0, Neutrophils (%) (Auto) 66, Lymphocytes (%) (Auto) 19, Monocytes (%) (Auto) 10, Eosinophils (%) (Auto) 3, Basophils (%) (Auto) 1, Neutrophils # (Auto) 5.0, Lymphocytes # (Auto) 1.5, Monocytes # (Auto) 0.8, Eosinophils # (Auto) 0.2, Basophils # (Auto) 0.1, Immature Granulocyte # (Auto) 0.0, Sodium Level 141, Potassium Level 4.1, Chloride Level 105, Carbon Dioxide Level 25, Anion Gap 11, Blood Urea Nitrogen 21H, Creatinine 1.31H, Estimat Glomerular Filtration Rate 38, BUN/Creatinine Ratio 16, Glucose Level 102, Calcium Level 9.2, Triglycerides Level 93, Cholesterol Level 181, LDL Cholesterol Direct 120, VLDL Cholesterol 19, HDL Cholesterol 47 Assessment/Plan Assessment/Plan (1) Coronary artery disease with unstable angina pectoris Status: Acute Assessment & Plan: - Cardiology consulted, appreciate recommendations, Trending CE 01/08: Possible cath today by Cardiology, awaiting Dr Reyez to see patient Qualifiers: Qualified Codes: I25.110 - Atherosclerotic heart disease of [place] coronary artery with unstable angina pectoris (2) Permanent atrial fibrillation Status: Chronic Assessment & Plan: - Now rate controlled, will continue to monitor, holding OAC tonight due to possible cath in the AM 01/08: Restart Xarelto, decreased dose due to CrCl (3) CKD (chronic kidney disease) Status: Chronic Assessment & Plan: - Reviewed prior kidney function and patient is at baseline Qualifiers: Qualified Codes: N18.32 - Chronic kidney disease, stage 3b (4) Obstructive sleep apnea (adult) (pediatric) Status: Chronic Assessment & Plan: - Wears oxygen at night, unable to tolerate CPAP previously (5) Mixed hyperlipidemia Status: Chronic Assessment & Plan: - Continue statin (6) Essential hypertension Status: Chronic (7) Obesity Status: Chronic Qualifiers: Qualified Codes: E66.01 - Morbid (severe) obesity due to excess calories; Z68.38 - Body mass index [BMI] 38.0-38.9, adult (8) Hypothyroidism Status: Chronic Assessment & Plan: - Continue home meds Qualifiers: Qualified Codes: E03.9 - Hypothyroidism, unspecified Clinical Quality Measures AMI/AHF: ASA po Prior to arrival: Yes FLOR HUANG MD Jan 08, 2021 20:30
[2021-01-09] VITALS: BP 154/92
[2021-01-09] MEDS: ACETAMINOPHEN 500 MG TAB (TYLENOL) PO PRN ×2 (03:10→11:00)
[2021-01-09 03:26] LABS: HEMATOCRIT 38 % (35-52); HEMOGLOBIN 11.8 g/dL (11.5-16.0); MEAN CORPUSCULAR HEMOGLOBIN 26 pg (25-34); MEAN CORPUSCULAR HGB CONC 31 g/dL (32-36); MEAN CORPUSCULAR VOLUME 84 fL (80-99); MEAN PLATELET VOLUME 9.7 fL (9.0-12.2); PLATELET COUNT 240 10^3/uL (130-400); WHITE BLOOD COUNT 6.5 10^3/uL (4.3-11.0)
[2021-01-09 03:34] LABS: POTASSIUM 3.7 MMOL/L (3.6-5.0)
[2021-01-09 03:35] LABS: CALCIUM 9.1 MG/DL (8.5-10.1)
[2021-01-09 03:39] LABS: CREATININE SERUM 1.26 MG/DL (0.60-1.30)
[2021-01-09 04:15] VITALS: BP 156/97
[2021-01-09] MEDS: NS IV 1000 ML 1,000 ML IV SCH (06:01)
[2021-01-09] MEDS: CATHETER FLUSH 10 ML SYR IV SCH (06:01)
[2021-01-09] MEDS ORDERED: RIVA15TA2 PO (07:00)
[2021-01-09] MEDS ORDERED: CLOP75TA28 PO (07:00)
[2021-01-09 07:40] VITALS: BP 178/73
[2021-01-09] MEDS: ISOSORBIDE MONONITRATE 30 MG (IMDUR) TAB PO SCH (08:37)
[2021-01-09] MEDS: PANTOPRAZOLE 40 MG (PROTONIX) TAB PO SCH (08:38)
[2021-01-09] MEDS: LEVOTHYROXINE 25 MCG (LEVOTHROID) TAB PO SCH (08:38)
--- NOTE | 2021-01-09 08:41 | Cardiology Progress Note ---
Subjective Date Seen by Provider: Jan 09, 2021 Time Seen by Provider: 08:39 Subjective/Events-last exam Patient was seen and evaluated, laying down in bed, feeling better, no further episodes of chest pain, borderline tachycardic Review of Systems General: No Chills, No Night Sweats, No Fatigue, No Malaise, No Appetite, No Other HEENT: No Head Aches, No Visual Changes, No Eye Pain, No Ear Pain, No Dysphasia, No Sinus Congestion, No Post Nasal Drip, No Sore Throat, No Other Pulmonary: No Dyspnea, No Cough, No Pleuritic Chest Pain, No Other Cardiovascular: No: Chest Pain, Palpitations, Orthopnea, Paroxysmal Noc. Dyspnea, Edema, Lt Headedness, Other Objective-Cardiology Exam Last Set of Vital Signs Vital Signs 01/09/21 01/09/21 04:15 07:40 Temp 36.9 Pulse 105 Resp 22 B/P (MAP) 178/73 (108) Pulse Ox 95 O2 Delivery Room Air O2 Flow Rate 2.00 I&O Intake and Output 01/09/21 00:00 Intake Total 1900 ml Output Total 550 ml Balance 1350 ml Intake Oral 1000 ml IV Total 900 ml Output Urine Total 550 ml # Voids 2 # Bowel Movements 1 General: Alert, Oriented X3, Cooperative, No Acute Distress HEENT: Mucous Memb Moist/[place] Neck: Supple, No JVD, No Thyromegaly Lungs: Clear to Auscultation, Normal Air Movement Heart: Normal S1, Normal S2, No Murmurs, Other (Atrial fibrillation) Abdomen: Normal Bowel Sounds, Soft, No Tenderness, No Masses Extremities: No Clubbing, No Cyanosis, No Edema, No Tenderness/Swelling Skin: No Rashes, No Breakdown Neuro: Normal Gait, Normal Speech, Strength at 5/5 X4 Ext, Cranial Nerves 3-12 NL Psych/Mental Status: Mental Status NL, Mood NL Results Lab Laboratory Tests 01/09/21 02:57 A/P-Cardiology Admission Diagnosis Chest pain CAD afib HTN Assessment/Plan Unstable angina status post cardiac catheterization stenting to the right coronary artery Coronary artery disease, History of multiple interventions in the past, had a total of 3 stents. Underwent cardiac catheterization on November 15, 2018 revealing moderate stenosis at the ostium of the right coronary artery, heavily calcified. 2 stents in the mid right coronary artery are patent with small vessel disease distally. Calcified left main coronary artery is moderate stenosis, nonobstructive disease. Patent stents in the mid circumflex complex artery with no obstructive disease, mild disease in LAD. Repeat cardiac catheterization was done on June 29, 2019 at balloon angioplasty to the mid right coronary artery and stenting of the ostium of the right coronary artery using Maryann 3 x 15 mm expanded to 3.25 mm with excellent results. Still have moderate stenosis at the mid left main, mid LAD and mid circumflex artery, small vessel disease. Cardiac catheterization carried out on January 08, 2021 showing mild disease in the left system, severe stenosis at the ostium of the right coronary artery and severe in-stent restenosis in the mid right coronary artery status post multiple balloon angioplasty to the mid right coronary artery with excellent results. Multiple balloon angioplasty using a noncompliant balloon and cutting balloon to the ostium of the right coronary artery then deployment of Maryann 3 x 50 mm expanded to 3.2 mm with excellent results. Continue on aspirin Plavix in addition to the Xarelto Persistent atrial fibrillation, chronic, tachycardic this morning, maintained on diltiazem 360mg and Toprol XL as outpatient. Borderline tachycardic, I restarted Lopressor 25 mg and planning to continue on Toprol as an outpatient if her heart rate is better Echocardiogram done in August 2020 showing normal LV size with EF 55-65%, Aortic sclerosis without stenosis, PA 45-50mmHg. Intolerance to amiodarone with severe nausea and abdominal pain and discomfort Peripheral edema, improved. Hypertension, controlled, continue to monitor Hyperlipidemia, controlled, continue to monitor Carotid artery stenosis, mild bilateral nonobstructive disease per carotid duplex done August 2020. GEOFF THOMSON MD Jan 09, 2021 08:41
[2021-01-09] MEDS ORDERED: CLOPIDOGREL 75 MG (PLAVIX) TABLET PO SCH (09:00)
[2021-01-09] MEDS ORDERED: ASPIRIN E.C. 81 MG (ECOTRIN) TAB PO SCH (09:00)
[2021-01-09 12:33] VITALS: BP 148/83
[2021-01-09] MEDS ORDERED: METO50TA7 PO (13:43)
[2021-01-09 14:00] VITALS: BP 148/83
--- NOTE | 2021-01-09 15:02 | Discharge Summary ---
Diagnosis/Chief Complaint Date of Admission Jan 07, 2021 at 10:20 Date of Discharge Discharge Diagnosis Problems/Diagnosis: (1) Coronary artery disease with unstable angina pectoris Assessment & Plan: - Cardiology consulted, appreciate recommendations, Trending CE 01/08: Possible cath today by Cardiology, awaiting Dr Reyez to see patient Qualifiers: Qualified Codes: I25.110 - Atherosclerotic heart disease of [place] coronary artery with unstable angina pectoris Status: Acute (2) Permanent atrial fibrillation Assessment & Plan: - Now rate controlled, will continue to monitor, holding OAC tonight due to possible cath in the AM 01/08: Restart Xarelto, decreased dose due to CrCl Status: Chronic (3) CKD (chronic kidney disease) Assessment & Plan: - Reviewed prior kidney function and patient is at baseline Qualifiers: Qualified Codes: N18.32 - Chronic kidney disease, stage 3b Status: Chronic (4) Obstructive sleep apnea (adult) (pediatric) Assessment & Plan: - Wears oxygen at night, unable to tolerate CPAP previously Status: Chronic (5) Mixed hyperlipidemia Assessment & Plan: - Continue statin Status: Chronic (6) Essential hypertension Status: Chronic (7) Obesity Qualifiers: Qualified Codes: E66.01 - Morbid (severe) obesity due to excess calories; Z68.38 - Body mass index [BMI] 38.0-38.9, adult Status: Chronic (8) Hypothyroidism Assessment & Plan: - Continue home meds Qualifiers: Qualified Codes: E03.9 - Hypothyroidism, unspecified Status: Chronic Chief Complaint/HPI Chief Complaint/HPI 85 yo F with extensive cardiac history. She follows with Dr Reyez as her primary materials branch chief. States that yesterday she had some chest tightness that went away when she rested. She was up walking around her house. This AM her pain came back and she took a nitro that improved her symptoms but did not resolve them and that is when she came to the ER. Recent Stress test 4 months ago that was normal. Patient does have several stents in place and they required a balloon last year. Currently this AM states that she is not having any more chest pain or shortness of breath. Discharge Summary-Simple/Stand Consultations Discharge Physical Examination Allergies: Coded Allergies: Penicillins (Verified Allergy, Unknown, 07/21/18) propoxyphene (Verified Allergy, Unknown, 07/21/18) amiodarone (Verified Adverse Reaction, Unknown, NAUSEA, 01/07/21) Vitals & I&Os Vital Sign - Last 12Hours Date Time Temp Pulse Resp B/P (MAP) Pulse Ox O2 Delivery O2 Flow Rate FiO2 01/09/21 13:06 99 01/09/21 12:33 37.2 20 148/83 (104) 94 Room Air 01/09/21 04:15 2.00 Intake and Output 01/09/21 00:00 Intake Total 1900 ml Output Total 550 ml Balance 1350 ml Hospital Course See final discharge diagnosis. Discharge Instructions to patient/family Please see electronic discharge instructions given to patient. Discharge Medications Reviewed and agree with Discharge Medication list on patient's Discharge Instruction sheet Clinical Quality Measures AMI/AHF: ASA po Prior to arrival: Yes FLOR HUANG MD Jan 09, 2021 15:02
== END 2021-01-09 14:30 | disposition home or self-care (01) ==
LOC: EDUNIT# 06:55 → ER FS 06:59 → CSD 10:20 → UNDOADMOB 10:20 → CSD 10:20 → CATH 10:20 → UNDODISOB 01-09 14:30 → CATH 01-09 14:30
PROVIDERS: ATTEND Family Medicine
DX: I25.110 Atherosclerotic heart disease of native coronary artery with unstable angina pectoris (principal); I13.10 Hypertensive heart and chronic kidney disease without heart failure, with stage 1 through stage 4 chronic kidney disease, or unspecified chronic kidney disease; I48.21 Permanent atrial fibrillation; I27.20 Pulmonary hypertension, unspecified; G47.33 Obstructive sleep apnea (adult) (pediatric); E03.9 Hypothyroidism, unspecified; R73.03 Prediabetes; N18.32 Chronic kidney disease, stage 3b; E78.2 Mixed hyperlipidemia; E66.9 Obesity, unspecified; Z68.38 Body mass index [BMI] 38.0-38.9, adult; Z79.82 Long term (current) use of aspirin; Z79.890 Hormone replacement therapy; Z79.899 Other long term (current) drug therapy; Z79.51 Long term (current) use of inhaled steroids; Z79.02 Long term (current) use of antithrombotics/antiplatelets; Z95.5 Presence of coronary angioplasty implant and graft
CPT/HCPCS: 36415; 71045; 80048; 80053; 80061; 83735; 83874; 83880; 84484; 85025; 85027; 85610; 85730; 93005; 93041; 93458; 96361; 96374

== ENCOUNTER 2022-01-01 11:21 | Emergency (ER) | payer MEDICARE, OTHER ==
[~2022-01-01] VITALS: Ht 157.5 cm; Wt 94.3 kg
[~2022-01-01 11:21] MED LIST changes: +ACET-2650 PO; -AMIO200T6 PO; +AMIO200T65 PO; +DILT360C36 PO; +MAGN250T35 PO; +METO50TA7 PO; +MTP25TSR PO; +NITR0.4T39 SL; +OMG1KC PO; +POTA-179 PO; -POTA20TA15 PO; +RIVA15TA2 PO
[2022-01-01 12:07] LABS: BASOPHILS # (AUTO) 0.1 10^3/uL (0.0-0.1); BASOPHILS % (AUTO) 1 % (0-10); EOSINOPHILS # (AUTO) 0.2 10^3/uL (0.0-0.3); EOSINOPHILS % (AUTO) 2 % (0-10); HEMATOCRIT 39 % (35-52); HEMOGLOBIN 12.5 g/dL (11.5-16.0); LYMPHOCYTES # (AUTO) 1.1 10^3/uL (1.0-4.0); LYMPHOCYTES % (AUTO) 15 % (12-44); MEAN CORPUSCULAR HEMOGLOBIN 26 pg (25-34); MEAN CORPUSCULAR HGB CONC 32 g/dL (32-36); MEAN CORPUSCULAR VOLUME 81 fL (80-99); MEAN PLATELET VOLUME 9.8 fL (9.0-12.2); MONOCYTES # (AUTO) 0.5 10^3/uL (0.0-1.0); MONOCYTES % (AUTO) 7 % (0-12); NEUTROPHILS # (AUTO) 5.2 10^3/uL (1.8-7.8); NEUTROPHILS % (AUTO) 75 % (42-75); PLATELET COUNT 276 10^3/uL (130-400)
--- NOTE | 2022-01-01 12:16 | Diagnostic Imaging Report ---
INDICATION: Dizziness. EXAMINATION: Portable chest at 12:08 p.m. FINDINGS: Heart and mediastinum are normal. Lungs are clear. There are no effusions or pneumothoraces. IMPRESSION: No acute abnormalities in the chest. Dictated by: Dictated on workstation # [id number]
[2022-01-01 12:17] LABS: INR 1.4 (0.8-1.4); PROTHROMBIN TIME PATIENT 17.8 SEC (12.2-14.7)
--- NOTE | 2022-01-01 12:27 | ED General ---
General Chief Complaint: Dizziness/Syncope Stated Complaint: DIZZINESS/LIGHTHEADED Nursing Triage Note: Patient reports she went shopping at [facility] this morning and felt well. States she became dizzy, had blurred vision, and became nauseous when she returned home. She also reports intermittent left shoulder/arm pain for 2 days. She states she has a history of dizziness and took meclizine when she became dizzy. Source of Information: Patient, EMS, Family Exam Limitations: No Limitations History of Present Illness Date Seen by Provider: Jan 01, 2022 Time Seen by Provider: 11:37 Initial Comments 86-year-old female patient with history of sleep apnea coronary artery disease a status post stent placement, pneumonia, atrial fibrillation on Xarelto, chronic edema, hyperlipidemia, hypertension, hypothyroidism brought in by EMS with complaining of dizziness and left shoulder pain. Patient's daughter states she drove to [facility] this morning and after shaping returned home without any problem but complaining of dizziness and nausea and blurred vision while she was in the kitchen. Patient daughter gave her leftover of meclizine given in 2020 for dizziness and decided to bring her to ER but was not able to get her into the car and called 911. Patient also complaining of intermittent episodes of left shoulder pain since yesterday with movement and activity without known injury. Patient denies new focal neurodeficit, chest pain, shortness of breath, vomiting, urinary symptoms, diarrhea, cough and congestion. Patient has sick contact with COVID at home. Allergies and Home Medications Allergies Coded Allergies: Penicillins (Verified Allergy, Unknown, 07/21/18) propoxyphene (Verified Allergy, Unknown, 07/21/18) amiodarone (Verified Adverse Reaction, Unknown, NAUSEA, 01/07/21) Patient Home Medication List Home Medication List Reviewed: Yes Acetaminophen (Tylenol Arthritis) 650 Mg Tablet.er, 650-1,300 MG PO Q8H PRN for PAIN-MILD (1-4), (Reported) Entered as Reported by: YEFRI OLVERA on 01/07/21 1235 Aspirin (Aspirin EC) 81 Mg Tablet.dr, 81 MG PO DAILY, (Reported) Entered as Reported by: TAMARA MACHADO on 07/06/19 0933 Atorvastatin Calcium (Atorvastatin Calcium) 40 Mg Tablet, 40 MG PO DAILY, (Reported) Entered as Reported by: YEFRI OLVERA on 01/07/21 1235 Clopidogrel Bisulfate (Clopidogrel) 75 Mg Tablet, 75 MG PO DAILY Prescribed by: GEOFF THOMSON on 01/09/21 0700 Diltiazem HCl (Diltiazem HCl) 60 Mg Tablet, 60 MG PO PRN PRN for PULSE OVER 100, (Reported) Entered as Reported by: TAMARA MACHADO on 06/29/19 1004 Diltiazem HCl (Diltiazem 24Hr ER) 360 Mg Cap.er.24h, 360 MG PO DAILY, (Reported) Entered as Reported by: YEFRI OLVERA on 01/07/21 1235 Fluticasone/Salmeterol (Advair 100-50 Diskus) 1 Each Blst.w.dev, 1 PUFF INH BID PRN for SHORTNESS OF BREATH, (Reported) Entered as Reported by: TAMARA MACHADO on 06/29/19 1004 Furosemide (Furosemide) 40 Mg Tablet, 40 MG PO DAILY, (Reported) Entered as Reported by: TAMARA MACHADO on 06/29/19 1004 Levothyroxine Sodium (Synthroid) 25 Mcg Tablet, 25 MCG PO DAILY, (Reported) Entered as Reported by: TAMARA MACHADO on 11/15/18 0838 Magnesium Oxide (Magnesium Oxide) 250 Mg Tablet, 250 MG PO DAILY, (Reported) Entered as Reported by: YEFRI OLVERA on 01/07/21 1235 Meclizine HCl (Meclizine HCl) 25 Mg Tablet, 25 MG PO TID PRN for DIZZINESS, (Reported) Entered as Reported by: TAMARA MACHADO on 06/29/19 1004 Metoclopramide HCl (Metoclopramide HCl) 5 Mg Tablet, 5 MG PO TID PRN for NAUSEA/VOMITING-3RD LINE, (Reported) Entered as Reported by: TAMARA MACHADO on 07/06/19 0933 Metoprolol Succinate (Metoprolol Succinate) 50 Mg Tab.er.24h, 50 MG PO DAILY Prescribed by: AKUA PILLAI on 01/09/21 1343 Nitroglycerin (Nitroglycerin) 0.4 Mg Tab.subl, 0.4 MG SL UD PRN for CHEST PAIN, (Reported) Entered as Reported by: YEFRI OLVERA on 01/07/21 1235 [place] 3 Polyunsat Fatty Acids (Fish Oil 1,000 mg Capsule) 1,000 Mg Cap, 1,000 MG PO TID, (Reported) Entered as Reported by: YEFRI OLVERA on 01/07/21 1235 Pantoprazole Sodium (Pantoprazole Sodium) 40 Mg Tablet.dr, 40 MG PO DAILY, (Reported) Entered as Reported by: TAMARA MACHADO on 07/06/19 0933 Potassium Chloride (Potassium Chloride) 20 Meq Tab.er.prt, 20 MEQ PO DAILY, (Reported) Entered as Reported by: TAMARA MACHADO on 06/29/19 1004 Rivaroxaban (Xarelto Tablet) 15 Mg Tablet, 15 MG PO DAILY@1700 Prescribed by: GEOFF THOMSON on 01/09/21 0700 Sucralfate (Sucralfate) 1 Gm Tablet, 1 GM PO ACHS, (Reported) Entered as Reported by: YEFRI OLVERA on 01/07/21 1235 Review of Systems Review of Systems Constitutional: dizziness, weakness EENTM: blurred vision; No ear discharge, No hearing loss Respiratory: no symptoms reported Cardiovascular: no symptoms reported Gastrointestinal: constipation, nausea Genitourinary: no symptoms reported Musculoskeletal: joint pain Skin: no symptoms reported Psychiatric/Neurological: No Symptoms Reported Hematologic/Lymphatic: No Symptoms Reported Immunological/Allergic: no symptoms reported All Other Systems Reviewed Negative Unless Noted: Yes Past Ylzhkak-Oqmfse-Lmvnek Hx Patient Social History Tobacco Use?: No Substance use?: No Alcohol Use?: No Pt feels they are or have been: No Seasonal Allergies Seasonal Allergies: No Past Medical History Surgery/Hospitalization HX: cardiac stents, atrial fibrillation Surgeries: Yes (STENT X 3, NSTEMI) Coronary Stent Respiratory: Yes Pneumonia, Sleep Apnea Cardiac: Yes (Paroxysmal A Fib, CHF) Atrial Fibrillation, Chronic Edema/Swelling, Coronary Artery Disease, High Cholesterol, Hypertension Neurological: No Genitourinary: Yes (Stage 3 CKD) Gastrointestinal: No Musculoskeletal: No Endocrine: Yes (Dx "Prediabetes") Hypothyroidsim HEENT: No Cancer: No Psychosocial: No Integumentary: No Blood Disorders: No Family Medical History No Pertinent Family Hx Physical Exam Vital Signs Vital Signs - First Documented 01/01/22 11:23 Temp 36.5 Pulse 81 Resp 20 B/P (MAP) 98/86 (90) Pulse Ox 95 O2 Delivery Room Air Capillary Refill : Less Than 3 Seconds Height, Weight, BMI Height: 5'4.00" Weight: 190lbs. 0.7oz. [id number]; 38.00 BMI Method:Stated General Appearance: No Apparent Distress, Anxious, Obese Eyes: Bilateral Eye Normal Inspection, Bilateral Eye PERRL, Bilateral Eye EOMI HEENT: PERRL/EOMI, TMs Normal, Normal ENT Inspection, Pharynx Normal, Moist Mucous Membranes Neck: Full Range of Motion, Normal Inspection Respiratory: Chest Non Tender, Lungs Clear, Normal Breath Sounds, No Accessory Muscle Use, No Respiratory Distress Cardiovascular: No Gallop, No JVD, Irregularly Irregular; No Tachycardia Gastrointestinal: Normal Bowel Sounds, No Organomegaly Back: Normal Inspection Extremity: Normal Capillary Refill, Normal Inspection, Other (Left shoulder painful range of motion without focal tenderness or neurodeficit) Neurologic/Psychiatric: Alert, Oriented x3, No Motor/Sensory Deficits, Normal Mood/Affect Skin: Normal Color, Warm/Dry Progress/Results/Core Measures Suspected Sepsis SIRS Temperature: Pulse: 81 Respiratory Rate: 20 Laboratory Tests 01/01/22 11:40: White Blood Count 7.0 Blood Pressure 98 /86 Mean: 90 Laboratory Tests 01/01/22 11:40: Creatinine 1.61H, INR Comment 1.4, Platelet Count 276, Total Bilirubin 0.6 Results/Orders Lab Results Laboratory Tests Test 01/01/22 11:40 01/01/22 11:47 01/01/22 13:50 Range/Units White Blood Count 7.0 4.3-11.0 10^3/uL Red Blood Count 4.86 3.80-5.11 10^6/uL Hemoglobin 12.5 11.5-16.0 g/dL Hematocrit 39 35-52 % Mean Corpuscular Volume 81 80-99 fL Mean Corpuscular Hemoglobin 26 25-34 pg Mean Corpuscular Hemoglobin Concent 32 32-36 g/dL Red Cell Distribution Width 14.4 10.0-14.5 % Platelet Count 276 130-400 10^3/uL Mean Platelet Volume 9.8 9.0-12.2 fL Immature Granulocyte % (Auto) 0 % Neutrophils (%) (Auto) 75 42-75 % Lymphocytes (%) (Auto) 15 12-44 % Monocytes (%) (Auto) 7 0-12 % Eosinophils (%) (Auto) 2 0-10 % Basophils (%) (Auto) 1 0-10 % Neutrophils # (Auto) 5.2 1.8-7.8 10^3/uL Lymphocytes # (Auto) 1.1 1.0-4.0 10^3/uL Monocytes # (Auto) 0.5 0.0-1.0 10^3/uL Eosinophils # (Auto) 0.2 0.0-0.3 10^3/uL Basophils # (Auto) 0.1 0.0-0.1 10^3/uL Immature Granulocyte # (Auto) 0.0 0.0-0.1 10^3/uL Prothrombin Time 17.8 H 12.2-14.7 SEC INR Comment 1.4 0.8-1.4 Activated Partial Thromboplast Time 32 24-35 SEC Sodium Level 141 135-145 MMOL/L Potassium Level 3.7 3.6-5.0 MMOL/L Chloride Level 106 98-107 MMOL/L Carbon Dioxide Level 24 21-32 MMOL/L Anion Gap 11 5-14 MMOL/L Blood Urea Nitrogen 28 H 7-18 MG/DL Creatinine 1.61 H 0.60-1.30 MG/DL Estimat Glomerular Filtration Rate 31 BUN/Creatinine Ratio 17 Glucose Level 143 H 70-105 MG/DL Calcium Level 9.6 8.5-10.1 MG/DL Corrected Calcium 9.4 8.5-10.1 MG/DL Magnesium Level 2.1 1.6-2.4 MG/DL Total Bilirubin 0.6 0.1-1.0 MG/DL Aspartate Amino Transf (AST/SGOT) 15 5-34 U/L Alanine Aminotransferase (ALT/SGPT) 11 0-55 U/L Alkaline Phosphatase 105 40-136 U/L Troponin I < 0.30 <0.30 NG/ML Pro-B-Type Natriuretic Peptide 2879.0 H <450.0 PG/ML Total Protein 7.2 6.4-8.2 GM/DL Albumin 4.3 3.2-4.5 GM/DL SARS-CoV-2 RNA (RT-PCR) Not Detected Not Detecte Urine Color YELLOW Urine Clarity CLEAR Urine pH 5.0 5-9 Urine Specific [place] 1.015 L 1.016-1.022 Urine Protein NEGATIVE NEGATIVE Urine Glucose (UA) NEGATIVE NEGATIVE Urine Ketones NEGATIVE NEGATIVE Urine Nitrite NEGATIVE NEGATIVE Urine Bilirubin NEGATIVE NEGATIVE Urine Urobilinogen 0.2 < = 1.0 MG/DL Urine Leukocyte Esterase NEGATIVE NEGATIVE Urine RBC (Auto) TRACE H NEGATIVE Urine RBC 0-2 /HPF Urine WBC RARE /HPF Urine Squamous Epithelial Cells RARE /HPF Urine Crystals NONE /LPF Urine Bacteria NEGATIVE /HPF Urine Casts PRESENT /LPF Urine Hyaline Casts RARE /LPF Urine Mucus NEGATIVE /LPF Urine Culture Indicated NO My Orders Orders - LINSEY OWEN MD Cbc With Automated Diff (01/01/22 11:51) Magnesium (01/01/22 11:51) Chest 1 View Ap/Pa Only (01/01/22 11:51) Ekg Tracing (01/01/22 11:51) Comprehensive Metabolic Panel (01/01/22 11:51) Protime With Inr (01/01/22 11:51) Partial Thromboplastin Time (01/01/22 11:51) Monitor-Rhythm Ecg Trace Only (01/01/22 11:51) Ed Iv/Invasive Line Start (01/01/22 11:51) Troponin I Fs (01/01/22 11:51) Probnp Fs (01/01/22 11:51) Ct Head Wo (01/01/22 11:51) Ua Culture If Indicated (01/01/22 11:51) Covid 19 Inhouse Test (01/01/22 11:51) Ondansetron Injection (Zofran Injectio (01/01/22 13:30) Medications Given in ED Current Medications Medications Dose Ordered Sig/Ammy Route Start Time Stop Time Status Last Admin Dose Admin Ondansetron HCl 4 mg ONCE ONCE IVP 01/01/22 13:30 01/01/22 13:31 DC 01/01/22 13:39 4 MG Vital Signs/I&O 01/01/22 01/01/22 11:23 14:22 Temp 36.5 Pulse 81 79 Resp 20 17 B/P (MAP) 98/86 (90) 141/79 Pulse Ox 95 94 O2 Delivery Room Air Room Air Capillary Refill : Less Than 3 Seconds Blood Pressure Mean: 90 Progress Note : Progress Note Evaluation of patient in ER showed 86-year-old female patient with complaining of dizziness and nausea and generalized weakness. Patient had unremarkable physical exam in ER. Patient had Zofran and meclizine prior to arrival to ER. Patient had unremarkable CT head. Patient did not have a steady gait with ambulation and decided to admit at hospital. Dr. Claire was informed at 1317 and recommended to admit patient to rehab directly instead of admitting at hospital and then transferred to rehab. Patient was discharged from our care and transferred POV to rehab at [facility]. ECG Initial ECG Impression Date: Jan 01, 2022 Initial ECG Impression Time: 11:35 Comment EKG interpreted by me. EKG at 1135 showed atrial fibrillation at a rate of 68, minimal voltage criteria for LVH, nonspecific ST and T wave abnormality, no acute ST and T wave elevation, multiple artifact. Diagnostic Imaging Diagonstic Imaging: CT (Head CT without contrast) Plain Films/CT/US/NM/MRI: chest Comments CT head without contrast interpreted by radiologist and reviewed by me and showed: NAME: LOU WOODRUFF [facility] REC#: [id number] PT STATUS: REG ER : 1935 PHYSICIAN: LINSEY OWEN MD ADMIT DATE: 01/01/22/ER FS Draft Date of Exam:01/01/22 CT HEAD WO PROCEDURE: CT head without contrast. TECHNIQUE: Multiple contiguous axial images were obtained through the brain without the use of intravenous contrast. Auto Exposure Controls were utilized during the CT exam to meet ALARA standards for radiation dose reduction. INDICATION: Dizziness. COMPARISON: 07/07/2019 FINDINGS: There is no mass, midline shift or hemorrhage identified to suggest an acute abnormality. 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 The ventricles are not abnormally dilated and stable in size when compared to the prior exam. The senescent changes seen on the prior examination, including cortical atrophy and periventricular encephalomalacia and, are again visualized and no different. The bone windows show no evidence for fracture or for a destructive lesion. The orbits and sinuses, where visualized, are unremarkable for an acute abnormality. IMPRESSION: 1. There is no evidence for an acute intracranial abnormality. When compared to the prior study, there does not appear to have been any significant change. 2. If clinical concern regarding an underlying abnormality persists, then MRI would be recommended. Dictated on workstation # [id number] Dict: 01/01/22 1218 Trans: 01/01/22 1226 [id number] Interpreted by: ALEM RICHTER MD Electronically signed by: 1 view chest x-ray interpreted by radiologist and reviewed by me and showed: NAME: LOU WOODRUFF [facility] REC#: [id number] PT STATUS: REG ER : 1935 PHYSICIAN: LINSEY OWEN MD ADMIT DATE: 01/01/22/ER FS Draft Date of Exam:01/01/22 CHEST 1 VIEW AP/PA ONLY INDICATION: Dizziness. EXAMINATION: Portable chest at 12:08 p.m. FINDINGS: Heart and mediastinum are normal. Lungs are clear. There are no effusions or pneumothoraces. IMPRESSION: No acute abnormalities in the chest. Dictated on workstation # [id number] Dict: 01/01/22 1214 Trans: 01/01/22 1216 [id number] Interpreted by: EVANGELISTA GATES MD Electronically signed by: Departure Communication (Admissions) Time/Spoke to Admitting Phy: 13:17 Dr. Claire on-call hospitalist for [facility] was consulted and recommended to direct admit patient to rehab. Impression Primary Impression: Generalized weakness Additional Impressions: Dizziness Chronic CHF Qualified Codes: I50.9 - Heart failure, unspecified Disposition: 62 DISC/XFER TO IRF (Direct admit to rehab) Condition: Improved Admissions Decision to Admit Reason: Admit from ER (General) (To rehab) Decision to Admit/Date: Jan 01, 2022 Time/Decision to Admit Time: 13:17 Departure-Patient Inst. Decision time for Depature: 14:11 Referrals: [facility] (PCP/Family) Primary Care Physician Patient Instructions: Vertigo (a Type of Dizziness) (DC), Generalized Weakness (DC) Add. Discharge Instructions: Follow-up with Dr. Claire orders at the rehab All discharge instructions reviewed with patient and/or family. Voiced understanding. LINSEY OWEN MD Jan 01, 2022 12:27
[2022-01-01 12:51] LABS: POTASSIUM 3.7 MMOL/L (3.6-5.0)
[2022-01-01 12:52] LABS: ALBUMIN 4.3 GM/DL (3.2-4.5); BILIRUBIN,TOTAL 0.6 MG/DL (0.1-1.0); CALCIUM 9.6 MG/DL (8.5-10.1); CREATININE SERUM 1.61 MG/DL (0.60-1.30); MAGNESIUM 2.1 MG/DL (1.6-2.4); TOTAL PROTEIN 7.2 GM/DL (6.4-8.2)
[2022-01-01] MEDS ORDERED: ONDANSETRON 4 MG/2 ML (SDV) Z0FRAN IVP ONE (13:30)
[2022-01-01 14:05] LABS: BACTERIA,URINE NEGATIVE /HPF; BILIRUBIN,URINE NEGATIVE (NEGATIVE); CLARITY,URINE CLEAR; COLOR,URINE YELLOW; GLUCOSE, URINE (UA) NEGATIVE (NEGATIVE); KETONES,URINE NEGATIVE (NEGATIVE); LEUKOCYTE ESTERASE ,URINE NEGATIVE (NEGATIVE); NITRITE,URINE NEGATIVE (NEGATIVE); PROTEIN,URINE NEGATIVE (NEGATIVE); RBC,URINE 0-2 /HPF; SQUAMOUS EPITHELIAL CELL,UR RARE /HPF; WBC,URINE RARE /HPF
[2022-01-01 14:06] LABS: HYALINE CASTS, URINE RARE /LPF
[2022-01-01 14:22] VITALS: BP 141/79
== END 2022-01-01 14:40 ==
LOC: EDUNIT# 11:21 → ER FS 11:22
DX: I11.0 Hypertensive heart disease with heart failure (principal); I50.9 Heart failure, unspecified; R42 Dizziness and giddiness; R53.1 Weakness; I48.0 Paroxysmal atrial fibrillation; Z79.01 Long term (current) use of anticoagulants; Z20.822 Contact with and (suspected) exposure to COVID-19
CPT/HCPCS: 36415; 70450; 71045; 80053; 81000; 83735; 83880; 84484; 85025; 85610; 85730; 87636; 93005; 93041

== ENCOUNTER 2022-01-01 13:25 | Inpatient (IN) | payer MEDICARE, OTHER ==
[~2022-01-01] VITALS: Ht 162.6 cm; Wt 89.8 kg
[2022-01-01 16:21] VITALS: BP 146/69
[2022-01-01] MEDS ORDERED: FLEET ENEMA ADULT 1 EA BTL PR PRN (16:30)
[2022-01-01] MEDS ORDERED: LOPERAMIDE 2 MG (IMODIUM) TABLET PO PRN (16:30)
[2022-01-01] MEDS ORDERED: ENOXAPARIN 40 MG/0.4 ML (LOVENOX) SYR SC SCH (16:30)
[2022-01-01] MEDS ORDERED: ALPRAZolam 0.25 MG (XANAX) TAB PO PRN (16:30)
[2022-01-01] MEDS ORDERED: ONDANSETRON 4 MG (ZOFRAN) ORAL DISSOLVE TAB PO PRN (16:30)
[2022-01-01] MEDS ORDERED: diphenhydrAMINE 25 MG TAB (BENADRYL) PO PRN (16:30)
[2022-01-01] MEDS ORDERED: DOCUSATE SODIUM 100 MG (COLACE) CAP PO PRN (16:30)
[2022-01-01] MEDS ORDERED: MELATONIN 3 MG TABLET PO PRN (16:30)
[2022-01-01] MEDS ORDERED: BISACODYL 10 MG SUPP (DULCOLAX) PR PRN (16:30)
[2022-01-01] MEDS: ACETAMINOPHEN 325 MG TABLET PO PRN (17:51)
--- NOTE | 2022-01-01 18:33 | PM&R Post Admission Assessment ---
PM&R Date of Visit: Jan 01, 2022 Time of Visit: 19:00 History of Present Illness Chief complaint: Acute vertigo with nausea and vomiting History of present illness: This is an 86-year-old female with extensive coronary artery disease patient of Dr. Reyez who also has obstructive sleep apnea, COPD, hypothyroidism, hypertension, hyperlipidemia who presented to the ER with vertigo with nausea and vomiting. She was very weak and needed therapy, supportive care in order to regain enough function to return where she lives with her daughter. Patient wanted to eat dinner but was too nauseated. Work-up reviewed in the ER revealing no significant abnormality. She was sent to inpatient rehab for further strengthening and supportive care. Past Znuzqqb-Fxnkxk-Auqszc Hx Past Med/Social Hx: Reviewed Nursing Past Med/Soc Hx, Reviewed and Corrections made Patient Social History Marrital Status: single Employed/Student: retired Alcohol Use: Denies Use Smoking Status: Former Smoker 2nd Hand Smoke Exposure: No Recent Foreign Travel: No Contact w/other who traveled: No Recent Hopitalizations: No Immunizations Up To Date Date of Pneumonia Vaccine: Nov 15, 2013 Date of Influenza Vaccine: Mar 07, 2020 Seasonal Allergies Seasonal Allergies: No Past Medical History Surgeries: Coronary Stent Respiratory: Sleep Apnea Currently Using CPAP: Yes Cardiac: Atrial Fibrillation, Chronic Edema/Swelling, Coronary Artery Disease, High Cholesterol, Hypertension Genitourinary: Bladder Infection, Renal Failure Gastrointestinal: Gastroesophageal Reflux, Chronic Constipation Musculoskeletal: Arthritis, Chronic Back Pain Endocrine: Hypothyroidsim History of Blood Disorders: No Family History No Pertinent Family Hx PM&R Allergy/Meds/Data Review Allergies Coded Allergies: Penicillins (Verified Allergy, Unknown, 07/21/18) propoxyphene (Verified Allergy, Unknown, 07/21/18) amiodarone (Verified Adverse Reaction, Unknown, NAUSEA, 01/07/21) Home Medications Scheduled Aspirin (Aspirin EC), 81 MG PO DAILY, (Reported) Atorvastatin Calcium (Atorvastatin Calcium), 40 MG PO DAILY, (Reported) Clopidogrel Bisulfate (Clopidogrel), 75 MG PO DAILY Diltiazem HCl (Diltiazem 24Hr ER), 360 MG PO DAILY, (Reported) Furosemide (Furosemide), 40 MG PO DAILY, (Reported) Levothyroxine Sodium (Synthroid), 25 MCG PO DAILY, (Reported) Magnesium Oxide (Magnesium Oxide), 250 MG PO DAILY, (Reported) Metoprolol Succinate (Metoprolol Succinate), 50 MG PO DAILY [place] 3 Polyunsat Fatty Acids (Fish Oil 1,000 mg Capsule), 1,000 MG PO TID, (Reported) Pantoprazole Sodium (Pantoprazole Sodium), 40 MG PO DAILY, (Reported) Potassium Chloride (Potassium Chloride), 20 MEQ PO DAILY, (Reported) Rivaroxaban (Xarelto Tablet), 15 MG PO DAILY@1700 Sucralfate (Sucralfate), 1 GM PO ACHS, (Reported) Scheduled PRN Acetaminophen (Tylenol Arthritis), 650-1,300 MG PO Q8H PRN for PAIN-MILD (1-4), (Reported) Diltiazem HCl (Diltiazem HCl), 60 MG PO PRN PRN for PULSE OVER 100, (Reported) Fluticasone/Salmeterol (Advair 100-50 Diskus), 1 PUFF INH BID PRN for SHORTNESS OF BREATH, (Reported) Meclizine HCl (Meclizine HCl), 25 MG PO TID PRN for DIZZINESS, (Reported) Metoclopramide HCl (Metoclopramide HCl), 5 MG PO TID PRN for NAUSEA/VOMITING-3RD LINE, (Reported) Nitroglycerin (Nitroglycerin), 0.4 MG SL UD PRN for CHEST PAIN, (Reported) Current Medications Current Medications Reviewed Review of Systems Constitutional: see HPI, dizziness, malaise, weakness EENTM: no symptoms reported Respiratory: no symptoms reported Cardiovascular: no symptoms reported Gastrointestinal: loss of appetite, nausea, vomiting Genitourinary: decreased output Musculoskeletal: back pain, joint pain Skin: no symptoms reported Psychiatric/Neurological: Anxiety All Other Systems Reviewed Negative Unless Noted: Yes Physical Exam Physical Exam Vital Signs Vital Signs - First Documented 01/01/22 16:21 Temp 37.2 Pulse 77 Resp 20 B/P (MAP) 146/69 (94) Pulse Ox 96 O2 Delivery Room Air Capillary Refill : Height, Weight, BMI Height: 5'4.00" Weight: 190lbs. 0.7oz. [id number]; 34.11 BMI Method:Stated General Appearance: No Apparent Distress, WD/WN, Chronically ill, Obese Eyes: Bilateral Eye Normal Inspection, Bilateral Eye PERRL HEENT: PERRL/EOMI, Normal ENT Inspection, Pharynx Normal Neck: Full Range of Motion, Normal Inspection, Non Tender, Supple, Carotid Bruit Respiratory: Chest Non Tender, Lungs Clear, Normal Breath Sounds, No Accessory Muscle Use, No Respiratory Distress Cardiovascular: Regular Rate, Rhythm, No Edema, No Gallop, No JVD, No Murmur, Normal Peripheral Pulses Gastrointestinal: Normal Bowel Sounds, No Organomegaly, No Pulsatile Mass, Non Tender, Soft Back: Normal Inspection, No CVA Tenderness, No Vertebral Tenderness Extremity: Normal Capillary Refill, Normal Inspection, Normal Range of Motion, Non Tender, No Calf Tenderness, No Pedal Edema Neurologic/Psychiatric: Alert, Oriented x3, No Motor/Sensory Deficits, bus operator II- XII Norm as Tested, Abnormal Gait, Depressed Affect, Motor Weakness (Generalized) Skin: Normal Color, Warm/Dry Lymphatic: No Adenopathy PM&R Medical Assessment & Plan REHAB/MEDICAL ASSESSMENT AND PLAN: REHAB IMPAIRMENT GROUP: Debility from vertigo ETIOLOGIC DIAGNOSIS: Debility from vertigo The comorbidities that impact the patients function and/or functional outcome by: Advanced age, extensive coronary disease, severe vertigo, nausea vomiting REHAB PLAN: The patient is being admitted to our comprehensive inpatient rehabilitation facility and can tolerate the intensity of service consisting of at least: 180 minutes of therapy a day, 5 out of 7 days a week Rehab treatment will consist of: [ (write brief focus that includes physician, rehab nursing and therapies/modalitiesIPOC will have more specifics) ] PT and OT will focus on regaining enough function with use of assistive devices during vertigo resolution in order to return back home The patient/family has a good understanding of our discharge process and will benefit from an interdisciplinary inpatient rehabilitation program. The patient has potential to make improvement and is in need of at least two of the following multidisciplinary therapies including but not limited to physical, occupational, speech, and prosthetics and orthotics. Additionally the patient will need services from respiratory, nutritional services, wound care, psychology, etc. (Customize this to each patient). Given the patients complex condition and risk of further medical complications, rehabilitation services cannot be safely or effectively provided at a lower level of care such as a retirement facility. BARRIERS TO DISCHARGE: Advanced age ESTIMATED LOS: 7 days DISPOSITION: Home RELEVANT CHANGES SINCE PREADMISSION SCREENING: I have compared the patients medical and functional status at the time of the preadmission screening and there are: no changes PROGNOSIS: Fair REHABILITATION GOALS: 1. PT and OT will focus on regaining enough function with use of assistive devices during vertigo resolution in order to return back home All the above goals were reviewed with the patient and he/she is in agreement. By signing this document, I acknowledge that I have personally performed a full physical examination on this patient within 24 hours of admission to this inpatient rehabilitation facility and have determined the patient to be able to tolerate the above course of treatment at an intensive level for a reasonable period of time. I will be completing a detailed individualized Plan of Care for this patient by day #4 of the patients stay based upon the Preadmission Screen, the Post-Admission Evaluation, and the therapy evaluations. Admission Dx/Comorbidities: (1) Dizziness Status: Acute ICD Codes: R42 - Dizziness and giddiness (2) Generalized weakness Status: Acute ICD Codes: R53.1 - Weakness (3) Chronic CHF Status: Acute ICD Codes: I50.9 - Heart failure, unspecified (4) Chronic renal insufficiency Status: Acute ICD Codes: N18.9 - Chronic kidney disease, unspecified (5) Vertigo ICD Codes: R42 - Dizziness and giddiness (6) Obesity Status: Chronic ICD Codes: E66.9 - Obesity, unspecified (7) Mixed hyperlipidemia Status: Chronic ICD Codes: E78.2 - Mixed hyperlipidemia (8) Essential hypertension Status: Chronic ICD Codes: I10 - Essential (primary) hypertension (9) Coronary artery disease with unstable angina pectoris Status: Acute ICD Codes: I25.110 - Atherosclerotic heart disease of [place] coronary artery with unstable angina pectoris (10) Permanent atrial fibrillation Status: Chronic ICD Codes: I48.21 - Permanent atrial fibrillation (11) CKD (chronic kidney disease) Status: Chronic ICD Codes: N18.9 - Chronic kidney disease, unspecified (12) Obstructive sleep apnea (adult) (pediatric) Status: Chronic ICD Codes: G47.33 - Obstructive sleep apnea (adult) (pediatric) (13) Hypothyroidism Status: Chronic ICD Codes: E03.9 - Hypothyroidism, unspecified (14) Pulmonary hypertension ICD Codes: I27.20 - Pulmonary hypertension, unspecified Assessment/Plan Assessment and Plan Assess & Plan/Chief Complaint Assessment: (1) Coronary artery disease with unstable angina pectoris (2) Permanent atrial fibrillation (3) CKD (chronic kidney disease) (4) Obstructive sleep apnea (adult) (pediatric) (5) Mixed hyperlipidemia (6) Essential hypertension (7) Obesity (8) Hypothyroidism Plan: Supportive care Gentle IV fluids Meclizine Valium Scopolamine patch ALICIA GASCA DO Jan 01, 2022 18:33
[2022-01-01] MEDS ORDERED: SCOPOLAMINE 1.5 MG (TRANSDERM-SCOP) PATCH TD ONE (19:00)
[2022-01-01] MEDS ORDERED: MECLIZINE 25 MG (ANTIVERT) TAB PO PRN (19:15)
[2022-01-01] MEDS ORDERED: MECLIZINE 25 MG (ANTIVERT) TAB PO ONE (19:15)
[2022-01-01] MEDS ORDERED: DIAZEPAM 2 MG (VALIUM) TAB PO PRN (19:15)
[2022-01-01] MEDS ORDERED: PROMETHAZINE INJ 25 MG/ML (PHENERGAN) AMP IM PRN (19:15)
[2022-01-01 19:43] VITALS: BP 140/69
[2022-01-01] MEDS ORDERED: METOCLOPRAMIDE 5 MG (REGLAN) TAB PO PRN (21:15)
[2022-01-01] MEDS ORDERED: NITROGLYCERIN 0.4 MG SL TABS BTL 25'S SL PRN (21:15)
[2022-01-01] MEDS ORDERED: ACETAMINOPHEN ER 650 MG (TYLENOL ARTHRITIS) PO PRN (21:15)
[2022-01-01] MEDS: polyethylene glycoL POWDER 17 GM (MIRALAX) PACK PO SCH (21:27)
[2022-01-01] MEDS: NS IV 1000 ML 1,000 ML IV SCH (21:52)
[2022-01-01] MEDS: SENNA W/DOCUSATE (SENOKOT S) TABLET PO SCH (21:53)
[2022-01-01] MEDS: DOCUSATE SODIUM 100 MG (COLACE) CAP PO SCH (21:53)
[2022-01-01] MEDS ORDERED: SCOPOLAMINE 1.5 MG (TRANSDERM-SCOP) PATCH ONE (22:11)
[2022-01-01] MEDS ORDERED: RT--FLUTICASONE/SALMETEROL 113-14 (AIRDUO RespiCLICK) IH PRN (23:15)
--- NOTE | 2022-01-02 05:01 | PM&R Progress Note ---
Subjective HPI/CC On Admission Date Seen by Provider: Jan 02, 2022 Time Seen by Provider: 05:30 Subjective/Events-last exam 01/02/2022: Patient doing well Much better today Slept well last night which is unusual for her Checked meds and labs Creatinine noted Scopolamine patch seems to be helpful Review of Systems General: Fatigue, Malaise Objective Exam Vital Signs Vital Signs Date Time Temp Pulse Resp B/P (MAP) Pulse Ox O2 Delivery O2 Flow Rate FiO2 01/02/22 19:28 36.3 57 18 115/56 (75) 97 Room Air Capillary Refill : General Appearance: No Apparent Distress, WD/WN, Chronically ill, Obese HEENT: PERRL/EOMI, Normal ENT Inspection, Pharynx Normal Neck: Full Range of Motion, Normal Inspection, Non Tender, Supple, Carotid Bruit Respiratory: Chest Non Tender, Lungs Clear, Normal Breath Sounds, No Accessory Muscle Use, No Respiratory Distress Cardiovascular: Regular Rate, Rhythm, No Edema, No Gallop, No JVD, No Murmur, Normal Peripheral Pulses Gastrointestinal: Normal Bowel Sounds, No Organomegaly, No Pulsatile Mass, Non Tender, Soft Back: Normal Inspection, No CVA Tenderness, No Vertebral Tenderness Extremity: Normal Capillary Refill, Normal Inspection, Normal Range of Motion, Non Tender, No Calf Tenderness, No Pedal Edema Neurologic/Psychiatric: Alert, Oriented x3, No Motor/Sensory Deficits, air value tester II- XII Norm as Tested, Abnormal Gait, Depressed Affect, Motor Weakness (Generalized) Skin: Normal Color, Warm/Dry Lymphatic: No Adenopathy Results/Procedures Lab Laboratory Tests 01/02/22 05:17 Patient resulted labs reviewed. FIM Transfers Therapy Code Descriptions/Definitions Functional [place] Measure: 0=Not Assessed/NA 4=Minimal Assistance 1=Total Assistance 5=Supervision or Setup 2=Maximal Assistance 6=Modified [place] 3=Moderate Assistance 7=Complete IndependenceSCALE: Activities may be completed with or without assistive devices. 9-Rrzjabsohw-rqahhfy completes the activity by him/herself with no assistance from a helper. 5-Set-up or Clean-up Assistance-helper sets up or cleans up; patient completes activity. [place] assists only prior to or following the activity. 4-Supervision or Touching Assistance-helper provides verbal cues and/or touching/steadying and/or contact guard assistance as patient completes activity. Assistance may be provided throughout the activity or intermittently. 3-Partial/Moderate Assistance-helper does LESS THAN HALF the effort. [place] lifts, holds or supports trunk or limbs, but provides less than half the effort. 2-Substantial/Maximal Assistance-helper does MORE THAN HALF the effort. [place] lifts or holds trunk or limbs and provides more than half the effort. 8-Ppcnsqstq-gxovxz does ALL the effort. Patient does none of the effort to complete the activity. Or, the assistance of 2 or more helpers is required for the patient to complete the activity. If activity was not attempted, code reason: 7-Patient Refused. 9-Not Applicable-not attempted and the patient did not perform the activity before the current illness, exacerbation or injury. 10-Not Attempted due to Environmental Limitations-(lack of equipment, weather restraints, etc.). 88-Not Attempted due to Medical Conditions or Safety Concerns. Assessment/Plan Assessment and Plan Assess & Plan/Chief Complaint Assessment: (1) Coronary artery disease with unstable angina pectoris (2) Permanent atrial fibrillation (3) CKD (chronic kidney disease) (4) Obstructive sleep apnea (adult) (pediatric) (5) Mixed hyperlipidemia (6) Essential hypertension (7) Obesity (8) Hypothyroidism Plan: Supportive care Gentle IV fluids Meclizine Valium Scopolamine patch 01/02/2022: Continue IV fluids Scopolamine patch (1) Dizziness Status: Acute (2) Generalized weakness Status: Acute (3) Chronic CHF Status: Acute (4) Chronic renal insufficiency Status: Acute (5) Vertigo (6) Obesity Status: Chronic (7) Mixed hyperlipidemia Status: Chronic (8) Essential hypertension Status: Chronic (9) Coronary artery disease with unstable angina pectoris Status: Acute (10) Permanent atrial fibrillation Status: Chronic (11) CKD (chronic kidney disease) Status: Chronic (12) Obstructive sleep apnea (adult) (pediatric) Status: Chronic (13) Hypothyroidism Status: Chronic (14) Pulmonary hypertension ALICIA GASCA DO Jan 02, 2022 05:00
[2022-01-02] MEDS: SUCRALFATE 1 GM (CARAFATE) TAB PO SCH ×4 (06:22→20:21)
[2022-01-02 07:01] LABS: BASOPHILS # (AUTO) 0.1 10^3/uL (0.0-0.1); BASOPHILS % (AUTO) 1 % (0-10); EOSINOPHILS # (AUTO) 0.2 10^3/uL (0.0-0.3); EOSINOPHILS % (AUTO) 3 % (0-10); HEMATOCRIT 37 % (35-52); HEMOGLOBIN 11.5 g/dL (11.5-16.0); LYMPHOCYTES # (AUTO) 1.7 10^3/uL (1.0-4.0); LYMPHOCYTES % (AUTO) 26 % (12-44); MEAN CORPUSCULAR HEMOGLOBIN 26 pg (25-34); MEAN CORPUSCULAR HGB CONC 31 g/dL (32-36); MEAN CORPUSCULAR VOLUME 83 fL (80-99); MONOCYTES # (AUTO) 0.7 10^3/uL (0.0-1.0); MONOCYTES % (AUTO) 10 % (0-12); NEUTROPHILS # (AUTO) 3.9 10^3/uL (1.8-7.8); NEUTROPHILS % (AUTO) 60 % (42-75); PLATELET COUNT 249 10^3/uL (130-400); WHITE BLOOD COUNT 6.5 10^3/uL (4.3-11.0)
[2022-01-02 07:33] LABS: ALBUMIN 3.7 GM/DL (3.2-4.5); BILIRUBIN,TOTAL 0.6 MG/DL (0.1-1.0); CREATININE SERUM 1.37 MG/DL (0.60-1.30); POTASSIUM 3.8 MMOL/L (3.6-5.0); TOTAL PROTEIN 6.5 GM/DL (6.4-8.2)
[2022-01-02 07:59] VITALS: BP 145/71
--- NOTE | 2022-01-02 09:04 | Physical Therapy Evaluation ---
PT Evaluation-General Medical Diagnosis Admission Date Jan 01, 2022 at 15:51 Medical Diagnosis: CAD, angina, afib Onset Date: Jan 01, 2022 Therapy Diagnosis Therapy Diagnosis: impaired mobility, endurance, strength, balance Height/Weight Height (Feet): 5 Height (Inches): 4.00 Weight (Pounds): 190 Weight (Ounces): 0.7 Precautions Precautions/Isolations: Fall Prevention, Standard Precautions Referral Physician: Jazmín Claire DO Reason for Referral: Evaluation/Treatment Medical History Pertinent Medical History: Atrial Fib, CAD, HTN, Hypothroidism Additional Medical History Past Medical History Surgeries: Coronary Stent Respiratory: Sleep Apnea Currently Using CPAP: Yes Cardiac: Atrial Fibrillation, Chronic Edema/Swelling, Coronary Artery Disease, High Cholesterol, Hypertension Genitourinary: Bladder Infection, Renal Failure Gastrointestinal: Gastroesophageal Reflux, Chronic Constipation Musculoskeletal: Arthritis, Chronic Back Pain Endocrine: Hypothyroidsim History of Blood Disorders: No Reviewed History: Yes Social History Home: Single Level Current Living Status: Children Entry Into Home: Ramp Prior Prior Level of Function SCALE: Activities may be completed with or without assistive devices. 2-Dxspbkocuw-fimtohu completes the activity by him/herself with no assistance from a helper. 5-Set-up or Clean-up Assistance-helper sets up or cleans up; patient completes activity. [place] assists only prior to or following the activity. 4-Supervision or Touching Assistance-helper provides verbal cues and/or touching/steadying and/or contact guard assistance as patient completes activity. Assistance may be provided throughout the activity or intermittently. 3-Partial/Moderate Assistance-helper does LESS THAN HALF the effort. [place] lifts, holds or supports trunk or limbs, but provides less than half the effort. 2-Substantial/Maximal Assistance-helper does MORE THAN HALF the effort. [place] lifts or holds trunk or limbs and provides more than half the effort. 7-Lcsjgzpte-nwdeuk does ALL the effort. Patient does none of the effort to complete the activity. Or, the assistance of 2 or more helpers is required for the patient to complete the activity. If activity was not attempted, code reason: 7-Patient Refused. 9-Not Applicable-not attempted and the patient did not perform the activity before the current illness, exacerbation or injury. 10-Not Attempted due to Environmental Limitations-(lack of equipment, weather restraints, etc.). 88-Not Attempted due to Medical Conditions or Safety Concerns. Bed Mobility: 6 Transfers (B,C,W/C): 6 Gait: 6 Indoor Mobility (Ambulation): Independent Prior Devices Use: Walker Patient states she uses a SPC also PT Evaluation-Current Subjective Patient in recliner pre tx, agrees to PT, has no complaints of pain. Will be co-treating with OT for part of tx due to poor patient mobility, severe nausea with activity, coordinate UE and LE with activity, safety and reduce risk of falls. Pt/Family Goals to be independent at home Objective Patient Orientation: Person, Place, Situation Attachments: IV ROM/Strength ROM Lower Extremities WNL Strength Lower Extremities LLE (hip flexion 3+/5, knee flexion 4+/5, knee extension 4/5, dorsiflexion 4/5), RLE (hip flexion 3+/5, knee flexion 4+/5, knee extension 4/5, dorsiflexion 4/5) Sensory Vision: Wears Glasses Hearing: Functional Sensation Right Lower Extremit: Intact Sensation Left Lower Extremity: Intact Transfers Roll Left & Right (QC): 6 Sit to Lying (QC): 6 Lying to Sitting/Side of Bed(Q: 6 Sit to Stand (QC): 4 Chair/Ewt-ag-Luavc Xfer(QC): 4 Toilet Transfer (QC): 4 Car Transfer (QC): 4 Patient performs rolling and supine <-> sit with independence, sit <-> stand and transfers CGA, car transfer CGA. Patient needs occasional cues for safety and positioning. Patient performs bathing and dressing and ADL's at sink in restroom before leaving her room, PT assists with standing and balance during these activities. Gait Does the Patient Walk?: Yes Mode of Locomotion: Walk Anticipated Mode of Locomotion: Walk Walk 10 feet (QC): 4 Walk 50 ft with 2 Turns(QC): 4 Walk 150 ft (QC): 4 Walking 10ft/uneven surface-QC: 4 Distance: 150'x2, 120' Gait Assistive Device: FWW Comments/Gait Description Patient can ambulate 150' with a rolling walker with CGA (including 50' with at least 2 turns of 90 degrees and 10' over an uneven surface), patient has occasional moments of unsteadiness but no LOB. Wheelchair Training Does the Pt Use a Wheelchair?: No Wheel 50 ft with 2 turns (QC): 9 Wheel 150 ft (QC): 9 Stairs #of Steps: 4 1 Step (curb) (QC): 4 4 Steps (QC): 4 12 Steps (QC): 88 Balance Sitting Static: Normal Sitting Dynamic: Normal Standing Static: Fair Standing Dynamic: Poor Picking up an Object (QC): 4 (CGA with loftsman) Special Test Comments Patient scored a 19/28 on the Tinetti Assessment Tool. Treatment PT performed bed mobility and transfers, ambulation, stair training, standing and positioning during bathing and dressing and ADL's, standing during UE activity and balance activity. OT performed bathing, dressing, ADL's, UE activity, UE positioning and safety during activity. Assessment/Needs Patient in recliner post tx with nurse call, phone, tray, all needs met. Patient has impaired mobility, strength, endurance, balance. Patient needs to use a rolling walker for safety during ambulation due to scoring on Tinetti. Rehab Potential: Fair PT Short Term Goals Short Term Goals Time Frame: Jan 09, 2022 Roll Left & Right: 6 Sit to lyin Lying to sitting on side of be: 6 Sit to stand: 4 (SBA) Chair/kra-oq-iyits transfer: 4 (SBA) Walk 10 feet: 4 (SBA) Walk 50 feet with two turns: 4 (SBA) Walk 150 feet: 4 (SBA) PT Snf Goals Studio Receptionist Goals PT Snf Goals Time Frame: Jan 23, 2022 Roll Left & Right (QC): 6 Sit to Lying (QC): 6 Lying-Sitting on Side/Bed(QC): 6 Sit to Stand (QC): 6 Chair/Tvh-cp-Iaeya Xfer(QC): 6 Toilet Transfer (QC): 6 Car Transfer (QC): 6 Does the Patient Walk: Yes Walk 10 feet (QC): 6 Walk 50ft with 2 Turns (QC): 6 Walk 150 ft (QC): 6 Walking 10ft on Uneven Surface: 6 1 Step (curb) (QC): 4 (SBA) 4 Steps (QC): 4 (SBA) 12 Steps (QC): 88 Picking up an Object (QC): 6 Wheel 50 feet with 2 turns (QC: 9 Wheel 150 feet: 9 PT Plan Problem List Problem List: Activity Tolerance, Functional Strength, Safety, Balance, Gait, Transfer, ROM Treatment/Plan Treatment Plan: Continue Plan of Care Treatment Plan: Education, Functional Activity Abdiel, Functional Strength, Ga it, Safety, Therapeutic Exercise, Transfers Treatment Duration: Jan 23, 2022 Frequency: At least 5 of 7 days/Wk (IRF) Estimated Hrs Per Day: 1.5 hours per day Patient and/or Family Agrees t: Yes Safety Risks/Education Patient Education: Gait Training, Transfer Techniques, Steps, Correct Positioning, Safety Issues Teaching Recipient: Patient Teaching Methods: Demonstration, Discussion Response to Teaching: Reinforcement Needed Discharge Recommendations Plan Patient will perform bed mobility and transfer training, balance and endurance training, functional strengthening, stair training, gait training, and education, to improve functional mobility and independence at home. Therapy Discharge Recommendati: Home & Family, Post Acute PT Time/GCodes Time In: 844 Time Out: 904 Total Billed Treatment Time: 75 Total Billed Treatment 1 visit EVM 10' FA 65' PT eval from [id number], OT eval from [id number], co-treat from [id number] CONOR PEARSON PT Jan 02, 2022 09:04
--- NOTE | 2022-01-02 09:06 | Occupational Therapy Eval ---
OT Evaluation-General/PLF Medical Diagnosis Admission Date Jan 01, 2022 at 15:51 Medical Diagnosis: Debility Onset Date: Jan 01, 2022 Therapy Diagnosis Therapy Diagnosis: reduced endurance Height/Weight Height (Feet): 5 Height (Inches): 4.00 Weight (Pounds): 190 Weight (Ounces): 0.7 Precautions Precautions/Isolations: Fall Prevention, Standard Precautions Referral Physician: [place]ot[place] Referral Reason: Evaluation/Treatment Medical History Pertinent Medical History: Atrial Fib, CAD, HTN, Hypothroidism Additional Medical History Chronic edema Current History Pt direct admit from [facility]. Per patient, she went to ER with c/o dizz iness and L shoulder/arm pain. Patient lives in a single story home with her daughter and KENYA. She was indep with adls and shares IADL responsibilities with her daughter. She does state that all iadls she completes are mostly performed at seated level (folding clothes/cooking etc while seated). She uses a walker and a cane when outside of the home and will furniture/wall surf inside the home. Reviewed History: Yes Social History Home: Single Level Current Living Status: Children Entry Into Home: Ramp ADL-Prior Level of Function SCALE: Activities may be completed with or without assistive devices. 9-Nhpvruftps-szhsnfi completes the activity by him/herself with no assistance from a helper. 5-Set-up or Clean-up Assistance-helper sets up or cleans up; patient completes activity. [place] assists only prior to or following the activity. 4-Supervision or Touching Assistance-helper provides verbal cues and/or touching/steadying and/or contact guard assistance as patient completes activity. Assistance may be provided throughout the activity or intermittently. 3-Partial/Moderate Assistance-helper does LESS THAN HALF the effort. [place] lifts, holds or supports trunk or limbs, but provides less than half the effort. 2-Substantial/Maximal Assistance-helper does MORE THAN HALF the effort. [place] lifts or holds trunk or limbs and provides more than half the effort. 5-Jxospwglr-pxezrr does ALL the effort. Patient does none of the effort to complete the activity. Or, the assistance of 2 or more helpers is required for the patient to complete the activity. If activity was not attempted, code reason: 7-Patient Refused. 9-Not Applicable-not attempted and the patient did not perform the activity before the current illness, exacerbation or injury. 10-Not Attempted due to Environmental Limitations-(lack of equipment, weather restraints, etc.). 88-Not Attempted due to Medical Conditions or Safety Concerns. Self Care: Independent Functional Cognition: Independent DME/Equipment: Bath Chair, Grab Bars, Tall Toilet, Tub/Shower Drive Self: Yes OT Current Status Subjective Pt denies pain, reports feeling much better today. Co-treat with PT secondary to c/o dizziness, weakness, high fall risk, and need of 2 skilled clinicians to progress indep and safety with adls and functional mobility. Appearance Pt left sitting in recliner, all needs within reach at therapy departure. Mental Status/Objective Patient Orientation: Person, Place, Situation Attachments: IV, Telemetry Current Glasses/Contacts: Yes Hearing Aids: No Dentures/Partials: Yes (top) Hand Dominance: Right Upper Extremity ROM R shoulder: ~165 degrees AROM L shoulder: ~170 degrees AROM Elbow-distally: WNL Upper Extremity Strength 4/5 grossly ADL-Treatment Eating (QC): 6 Oral Hygiene (QC): 4 Shower/Bathe Self (QC): 4 Upper Body Dressing (QC): 5 Lower Body Dressing (QC): 4 On/Off Footwear (QC): 4 Toileting Hygiene (QC): 4 Shower deferred secondary to IV infusing. Pt agreeable to sponge bath at sink. 50% of task completed in standing with close supervision for safety with nany dunne. No LOB observed. LB washed in sitting. Extra effort to lift/cross foot over contralateral knee in order to reach/wash but no physical assistance needed. Clothing donned seated in chair. Extra time to thread BLE's into underwear/pants. Supervision as she stood to manage clothing up to waist. She stood to brush teeth/dentures, no unsteadiness exhibited in standing. Pt denies any pain in L shoulder throughout all adls or functional activities. Other Treatments Pt ambulated to/from therapy gym with SBA-CGA and use of walker. CGA for safety as fatigue increases. Increased Unsteadiness observed when pt does not use walker. While in standing pt completed PVC pipe design. Focus on improving standing balance with zero UE support, LE strength, problem solving, memory, and endurance. Mod verbal cues for problem solving through task. No LOB or unsteadiness throughout activity. Appears to tolerate well but does verbalize mild lightheadedness during functional tasks. Pt often repeats self several times during treatment. Education OT Patient Education: Correct positioning, Energy conservation, Progress toward Goal/Update tx plan, Purpose of tx/functional activities, Rehab process, Safety issues Teaching Recipient: Patient Teaching Methods: Demonstration, Discussion Response to Teaching: Verbalize Understanding, Return Demonstration, Reinforcement Needed OT Short Term Goals Short Term Goals Time Frame: Jan 07, 2022 Eatin Oral hygiene: 6 Toileting hygiene: 6 Shower/bathe self: 5 Upper body dressin Lower body dressin Putting on/taking off footwear: 5 OT Longterm Goals Longterm Goals Time Frame: Jan 12, 2022 Eating (QC): 6 Oral Hygiene (QC): 6 Toileting Hygiene (QC): 6 Shower/Bathe Self (QC): 6 Upper Body Dressing (QC): 6 Lower Body Dressing (QC): 6 On/Off Footwear (QC): 6 1=Demonstrate adherence to instructed precautions during ADL tasks. 2=Patient will verbalize/demonstrate understanding of assistive devices/modifications for ADL. 3=Patient will improve strength/tolerance for activity to enable patient to perform ADL's. OT Education/Plan Problem List/Assessment Assessment: Decreased Activ Tolerance, Decreased Safety Aware, Impaired Cognition, Impaired Funct Balance, Impaired I ADL's, Impaired Self-Care Skills Discharge Recommendations Plan/Recommendations: Continue POC Therapy Discharge Recommendati: Home & Family, Post Acute OT (Home health OT) Treatment Plan/Plan of Care Treatment,Training & Education: Yes Patient would benefit from OT for education, treatment and training to promote independence in ADL's, mobility, safety and/or upper extremity function for ADL's. Plan of Care: ADL Retraining, Cognitive Retraining, Functional Mobility, Group Exercise/Act as Ind, UE Funct Exercise/Act Treatment Duration: Jan 12, 2022 Frequency: At least 5 of 7 days/Wk (IRF) Estimated Hrs Per Day: 1.5 hours per day (75-90 min/day) Agreement: Yes Rehab Potential: Fair Time/GCodes Start Time: 07:55 Stop Time: 09:10 Total Time Billed (hr/min): 75 Billed Treatment Time 1 visit EVL (10 min) ADL x3 (45 min) FA (20 min) Ivet Warren OT Jan 02, 2022 09:06
[2022-01-02] MEDS: LEVOTHYROXINE 25 MCG (LEVOTHROID) TAB PO SCH (09:40)
[2022-01-02] MEDS: meTOproloL SUCCINATE 50 MG (TOPROL XL) TAB PO SCH (09:40)
[2022-01-02] MEDS: KCL 20 MEQ TAB (K-DUR) PO SCH (09:40)
[2022-01-02] MEDS: OMEGA 3 (FISH OIL) 1000 MG CAP PO SCH ×3 (09:40→20:21)
[2022-01-02] MEDS: ASPIRIN E.C. 81 MG (ECOTRIN) TAB PO SCH (09:40)
[2022-01-02] MEDS: FUROSEMIDE 40 MG (LASIX) TAB PO SCH (09:40)
[2022-01-02] MEDS: DOCUSATE SODIUM 100 MG (COLACE) CAP PO SCH ×2 (09:41→20:20)
[2022-01-02] MEDS: polyethylene glycoL POWDER 17 GM (MIRALAX) PACK PO SCH ×2 (09:45→20:21)
[2022-01-02] MEDS: SENNA W/DOCUSATE (SENOKOT S) TABLET PO SCH ×2 (09:45→20:20)
[2022-01-02] MEDS: MICONAZOLE 2% POWDER (DESENEX AF) 90 GM TOP SCH ×2 (09:46→20:21)
[2022-01-02] MEDS: NS IV 1000 ML 1,000 ML IV SCH (11:33)
[2022-01-02] MEDS: CLOPIDOGREL 75 MG (PLAVIX) TABLET PO SCH (12:18)
[2022-01-02] MEDS: MAGNESIUM OXIDE (MAG-OX)400 MG TAB PO SCH (12:19)
[2022-01-02] MEDS: PANTOPRAZOLE 40 MG (PROTONIX) TAB PO SCH (12:19)
--- NOTE | 2022-01-02 13:09 | Consultation-Cardiology ---
HPI-Cardiology Cardiology Consultation Date of Consultation 01/02/22 Date of Admission Time Seen by Provider: 13:05 Indication: Coronary artery disease HPI 86-year-old lady with history of coronary artery disease, atrial fibrillation and COPD. Patient was in her usual state of health, she became suddenly dizzy and lightheaded, became extremely weak. She has significant vertigo, came into the emergency room and was admitted to acute rehab. She received a scopolamine patch and she is reporting improvement in her dizziness but still having generalized weakness and loss of energy. Generalized fatigue. She denied any chest pain. No shortness of breath. No palpitation. No syncope or near syncopal episodes. Home Medications & Allergies Allergies: Coded Allergies: Penicillins (Verified Allergy, Unknown, 07/21/18) propoxyphene (Verified Allergy, Unknown, 07/21/18) amiodarone (Verified Adverse Reaction, Unknown, NAUSEA, 01/07/21) Home Medication List Reviewed: Yes RLV-Xzqydo-Adukit Hx Patient Social History Marital Status: single Employed/Student: retired Smoking Status: Former Smoker 2nd Hand Smoke Exposure: No Recent Hopitalizations: No Have you traveled recently?: No Alcohol Use?: No Immunizations Up To Date Date of Pneumonia Vaccine: Nov 15, 2013 Date of Influenza Vaccine: Mar 07, 2020 Past Medical History Discussed below Family Medical History Significant Family History: No Pertinent Family Hx Family Medical Hx Noncontributory Review of Systems-General Review of Systems Constitutional: see HPI, dizziness, malaise, weakness EENTM: see HPI, no symptoms reported Respiratory: no symptoms reported, see HPI Cardiovascular: no symptoms reported, see HPI Gastrointestinal: see HPI, loss of appetite, nausea, vomiting Genitourinary: see HPI, decreased output Musculoskeletal: see HPI, back pain, joint pain Skin: no symptoms reported, see HPI Psychiatric/Neurological: See HPI, Anxiety All Other Systems Reviewed Negative Unless Noted: Yes Reviewed Test Results Reviewed Test Results Lab Laboratory Tests Test 01/02/22 05:17 Range/Units White Blood Count 6.5 4.3-11.0 10^3/uL Red Blood Count 4.49 3.80-5.11 10^6/uL Hemoglobin 11.5 11.5-16.0 g/dL Hematocrit 37 35-52 % Mean Corpuscular Volume 83 80-99 fL Mean Corpuscular Hemoglobin 26 25-34 pg Mean Corpuscular Hemoglobin Concent 31 L 32-36 g/dL Red Cell Distribution Width 14.5 10.0-14.5 % Platelet Count 249 130-400 10^3/uL Mean Platelet Volume 10.0 9.0-12.2 fL Immature Granulocyte % (Auto) 0 % Neutrophils (%) (Auto) 60 42-75 % Lymphocytes (%) (Auto) 26 12-44 % Monocytes (%) (Auto) 10 0-12 % Eosinophils (%) (Auto) 3 0-10 % Basophils (%) (Auto) 1 0-10 % Neutrophils # (Auto) 3.9 1.8-7.8 10^3/uL Lymphocytes # (Auto) 1.7 1.0-4.0 10^3/uL Monocytes # (Auto) 0.7 0.0-1.0 10^3/uL Eosinophils # (Auto) 0.2 0.0-0.3 10^3/uL Basophils # (Auto) 0.1 0.0-0.1 10^3/uL Immature Granulocyte # (Auto) 0.0 0.0-0.1 10^3/uL Sodium Level 143 135-145 MMOL/L Potassium Level 3.8 3.6-5.0 MMOL/L Chloride Level 108 H 98-107 MMOL/L Carbon Dioxide Level 24 21-32 MMOL/L Anion Gap 11 5-14 MMOL/L Blood Urea Nitrogen 25 H 7-18 MG/DL Creatinine 1.37 H 0.60-1.30 MG/DL Estimat Glomerular Filtration Rate 37 BUN/Creatinine Ratio 18 Glucose Level 83 70-105 MG/DL Calcium Level 9.0 8.5-10.1 MG/DL Corrected Calcium 9.2 8.5-10.1 MG/DL Total Bilirubin 0.6 0.1-1.0 MG/DL Aspartate Amino Transf (AST/SGOT) 15 5-34 U/L Alanine Aminotransferase (ALT/SGPT) 13 0-55 U/L Alkaline Phosphatase 88 40-136 U/L Total Protein 6.5 6.4-8.2 GM/DL Albumin 3.7 3.2-4.5 GM/DL Physical Exam Physical Exam Vital Signs Vital Signs - First Documented 01/01/22 16:21 Temp 37.2 Pulse 77 Resp 20 B/P (MAP) 146/69 (94) Pulse Ox 96 O2 Delivery Room Air Capillary Refill : Height, Weight, BMI Height: 5'4.00" Weight: 190lbs. 0.7oz. [id number]; 34.11 BMI Method:Stated General Appearance: No Apparent Distress, WD/WN, Chronically ill, Obese Eyes: Bilateral Eye Normal Inspection, Bilateral Eye PERRL HEENT: PERRL/EOMI, Normal ENT Inspection, Pharynx Normal Neck: Full Range of Motion, Normal Inspection, Non Tender, Supple, Carotid Bruit Respiratory: Chest Non Tender, Lungs Clear, Normal Breath Sounds, No Accessory Muscle Use, No Respiratory Distress Cardiovascular: No Edema, No Gallop, No JVD, No Murmur, Normal Peripheral Pulses, Irregularly Irregular Gastrointestinal: Normal Bowel Sounds, No Organomegaly, No Pulsatile Mass, Non Tender, Soft Back: Normal Inspection, No CVA Tenderness, No Vertebral Tenderness Extremity: Normal Capillary Refill, Normal Inspection, Normal Range of Motion, Non Tender, No Calf Tenderness, No Pedal Edema Neurologic/Psychiatric: Alert, Oriented x3, No Motor/Sensory Deficits, 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 Generalized weakness, unsteady gait, started on physical therapy. Coronary artery disease, History of multiple interventions in the past, had a total of 3 stents. Underwent cardiac catheterization on November 15, 2018 revealing moderate stenosis at the ostium of the right coronary artery, heavily calcified. 2 stents in the mid right coronary artery are patent with small vessel disease distally. Calcified left main coronary artery is moderate stenosis, nonobstructive disease. Patent stents in the mid circumflex complex artery with no obstructive disease, mild disease in LAD. Repeat cardiac catheterization was done on June 29, 2019 at balloon angioplasty to the mid right coronary artery and stenting of the ostium of the right coronary artery using Maryann 3 x 15 mm expanded to 3.25 mm with excellent results. Still have moderate stenosis at the mid left main, mid LAD and mid circumflex artery, small vessel disease. Cardiac catheterization on January 08, 2021 showing mild disease in the left sys tem, severe stenosis at the ostium of the right coronary artery and severe in- stent restenosis in the mid right coronary artery status post multiple balloon angioplasty to the mid right coronary artery with excellent results. Multiple balloon angioplasty using a noncompliant balloon and cutting balloon to the ostium of the right coronary artery then deployment of Maryann 3 x 50 mm expanded to 3.2 mm with excellent results. Currently clinically stable. Maintained on aspirin, Plavix and Xarelto as an outpatient. I will discontinue Plavix and continue on aspirin and Xarelto Permanent atrial fibrillation, rate is controlled. Clinically stable. Tolerating current medication well. Continue to monitor [id number] score 5, maintained on Xarelto Echocardiogram done in August 2020 showing normal LV size with EF 55-65%, Aortic sclerosis without stenosis, PA 45-50mmHg. 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 Continue to monitor Peripheral edema, improved. Hypertension, controlled, continue to monitor Hyperlipidemia, controlled, continue to monitor Carotid artery stenosis, mild bilateral nonobstructive disease per carotid duplex done August 2020. GEOFF THOMSON MD Jan 02, 2022 13:09
--- NOTE | 2022-01-02 13:35 | ST Cognitive Linguistic Eval ---
Speech Evaluation-General Medical Diagnosis CAD, angina, afib Onset Date: Jan 01, 2022 Therapy Diagnosis Therapy Diagnosis: Intact Cognitive Linguistic Skills Precautions Precautions: Fall Precautions/Isolations: Fall Prevention, Standard Precautions Referral Referring Physician: Dr. Jazmín Claire Reason for Referral: Evaluation/Treatment Medical History Pertinent Medical History: Atrial Fib, CAD, HTN, Hypothroidism Reviewed History: Yes Social History Current Living Status: Children Speech PLF-Current Status Prior Level of Function The patient denied current or recent concerns with her speech, language, cognition, or swallowing, stating all the above skills are functioning at baseline. Subjective The patient was seated on the edge of the bed, awake and alert upon entrance to her room by the clinician. The patient greeted the clinician appropriately and was agreeable to participation in the cognitive linguistic assessment. Language Eval: Auditory Comprehends Simple Yes/No Ques: Functional Indent/Objects Multiple Obrien: Functional Ident/Pics in Multiple Obrien: Functional Follows 1-Step Commands: Functional Follows Complex Directions: Functional Follows General Conversations: Functional Language Eval: Verbal Language Completes Spontaneous Greeting: Functional Produces Auto, Serial Info: Functional Imitates Simple Words/Phrases: Functional Word Finding: Functional Requests Basic Needs: Functional States Basic Personal Info: Functional Expresses Complex Ideas: Functional Language Evaluation: Reading Follows Simple Written Direct: Functional Language Evaluation: Writing Writes to Simple Dictation: Functional Cognitive Patient Orientation The patient was independently oriented to self, location, month, day of the week, date, and year. Objective Cognitive Domain Attention: WNL Memory: WNL Problem Solving: Functional Executive Functions: WNL Visuospatial Skills: WNL Composite Severity Rating: WNL Clock Drawing Severity Rating: WNL Objective Formal/Standardized Tests [facility] Mental Status Exam ([facility]) Results The patient demonstrated a result of +27/30 on the SLUMS correlating to a cognitive linguistic function within normal limits. Oral Motor/Speech Production The patient does not demonstrate dysarthria or apraxia of speech. The patient is 100% intelligible in known and unknown contexts. Impression The patient demonstrated cognitive linguistic function within normal limits. Speech Patient Assess Expression of Ideas/Wants: Expression (4) Understanding Verbal Content: Understands (4) Brief Interview-Mental Status: Yes Repetition of Three Words: Three (3) Temporal Orientation: Year: Correct (3) Temporal Orientation: Month: Accurate within 5 days(2) Temporal Orientation: Day: Correct (1) Recall : Wear to say "Sock": Yes, no cue required (2) Recall : Color: Yes, no cue required (2) Recall : Bed: Yes, no cue required (2) Memory/Recall Ability: Current season, That he or she is in a hsp/hsp unit Speech-Plan Treatment Plan Speech Therapy Treatment Plan: Discontinue ST Treatment Duration: Jan 02, 2022 Frequency: 1 time per week Estimated Hrs Per Day: .5 hour per day Rehab Potential: Fair Safety Risks/Education Teaching Recipient: Patient Teaching Methods: Discussion Response to Teaching: Verbalize Understanding Education Topics Provided: Results of [facility] POC Time Speech Therapy Time In: 11:30 Speech Therapy Time Out: 12:00 Total Billed Time: 30 Billed Treatment Time 1, DOMINIK SCHMIDT [facility] Jan 02, 2022 13:35
[2022-01-02] MEDS: RIVAROXABAN 15 MG TABLET (XARELTO) PO SCH (17:01)
[2022-01-02] MEDS: ACETAMINOPHEN 325 MG TABLET PO PRN (18:35)
[2022-01-02 19:28] VITALS: BP 115/56
[2022-01-03] MEDS: SUCRALFATE 1 GM (CARAFATE) TAB PO SCH ×4 (06:04→20:14)
[2022-01-03] MEDS: LEVOTHYROXINE 25 MCG (LEVOTHROID) TAB PO SCH (06:04)
--- NOTE | 2022-01-03 06:18 | PM&R Progress Note ---
Subjective HPI/CC On Admission Date Seen by Provider: Jan 03, 2022 Time Seen by Provider: 06:30 Subjective/Events-last exam 01/03/2022: Doing much better Vertigo is almost resolved Scopolamine patch will be maintained Cough is new so we will check chest x-ray and give cough syrup 01/02/2022: Patient doing well Much better today Slept well last night which is unusual for her Checked meds and labs Creatinine noted Scopolamine patch seems to be helpful Review of Systems General: Fatigue, Malaise Pulmonary: Cough Objective Exam Vital Signs Vital Signs Date Time Temp Pulse Resp B/P (MAP) Pulse Ox O2 Delivery O2 Flow Rate FiO2 01/03/22 09:03 Room Air 01/03/22 08:00 36.5 76 18 126/60 (82) 97 Capillary Refill : General Appearance: No Apparent Distress, WD/WN, Chronically ill, Obese HEENT: PERRL/EOMI, Normal ENT Inspection, Pharynx Normal Neck: Full Range of Motion, Normal Inspection, Non Tender, Supple, Carotid Bruit Respiratory: Chest Non Tender, Lungs Clear, Normal Breath Sounds, No Accessory Muscle Use, No Respiratory Distress Cardiovascular: Regular Rate, Rhythm, No Edema, No Gallop, No JVD, No Murmur, Normal Peripheral Pulses Gastrointestinal: Normal Bowel Sounds, No Organomegaly, No Pulsatile Mass, Non Tender, Soft Back: Normal Inspection, No CVA Tenderness, No Vertebral Tenderness Extremity: Normal Capillary Refill, Normal Inspection, Normal Range of Motion, Non Tender, No Calf Tenderness, No Pedal Edema Neurologic/Psychiatric: Alert, Oriented x3, No Motor/Sensory Deficits, 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 FIM Transfers Therapy Code Descriptions/Definitions Functional [place] Measure: 0=Not Assessed/NA 4=Minimal Assistance 1=Total Assistance 5=Supervision or Setup 2=Maximal Assistance 6=Modified [place] 3=Moderate Assistance 7=Complete IndependenceSCALE: Activities may be completed with or without assistive devices. 0-Nrpjctomck-vxxuhll completes the activity by him/herself with no assistance from a helper. 5-Set-up or Clean-up Assistance-helper sets up or cleans up; patient completes activity. [place] assists only prior to or following the activity. 4-Supervision or Touching Assistance-helper provides verbal cues and/or touching/steadying and/or contact guard assistance as patient completes activity. Assistance may be provided throughout the activity or intermittently. 3-Partial/Moderate Assistance-helper does LESS THAN HALF the effort. [place] lift s, holds or supports trunk or limbs, but provides less than half the effort. 2-Substantial/Maximal Assistance-helper does MORE THAN HALF the effort. [place] lifts or holds trunk or limbs and provides more than half the effort. 4-[place]-crkvjp does ALL the effort. Patient does none of the effort to complete the activity. Or, the assistance of 2 or more helpers is required for the patient to complete the activity. If activity was not attempted, code reason: 7-Patient Refused. 9-Not Applicable-not attempted and the patient did not perform the activity before the current illness, exacerbation or injury. 10-Not Attempted due to Environmental Limitations-(lack of equipment, weather restraints, etc.). 88-Not Attempted due to Medical Conditions or Safety Concerns. Roll Left to Right (QC): 6 Sit to Lying (QC): 6 Sit to Stand (QC): 4 Chair/Lbv-kj-Fmakk Xfer(QC): 4 Car Transfer (QC): 4 Gait Training Does the Patient Walk?: Yes Walk 10 feet (QC): 4 Walk 50 ft with 2 Turns(QC): 4 Walk 150 ft (QC): 4 Walking 10ft/uneven surface-QC: 4 Gait Assistive Device: FWW Wheelchair Training Does the Pt Use a Wheelchair?: No Wheel 50 ft with 2 turns (QC): 9 Wheel 150 ft (QC): 9 Stair Training #of Steps: 4 1 Step (curb) (QC): 4 4 Steps (QC): 4 12 Steps (QC): 88 Balance Picking up an Object (QC): 4 (CGA with facility designer) ADL-Treatment Eating (QC): 6 Oral Hygiene (QC): 4 Shower/Bathe Self (QC): 4 Upper Body Dressing (QC): 5 Lower Body Dressing (QC): 4 On/Off Footwear (QC): 4 Toileting Hygiene (QC): 4 Assessment/Plan Assessment and Plan Assess & Plan/Chief Complaint Assessment: (1) Coronary artery disease with unstable angina pectoris (2) Permanent atrial fibrillation (3) CKD (chronic kidney disease) (4) Obstructive sleep apnea (adult) (pediatric) (5) Mixed hyperlipidemia (6) Essential hypertension (7) Obesity (8) Hypothyroidism Plan: Supportive care Gentle IV fluids Meclizine Valium Scopolamine patch 01/02/2022: Continue IV fluids Scopolamine patch 01/03/2022: Check chest x-ray Antitussives (1) Dizziness Status: Acute (2) Generalized weakness Status: Acute (3) Chronic CHF Status: Acute (4) Chronic renal insufficiency Status: Acute (5) Vertigo (6) Obesity Status: Chronic (7) Mixed hyperlipidemia Status: Chronic (8) Essential hypertension Status: Chronic (9) Coronary artery disease with unstable angina pectoris Status: Acute (10) Permanent atrial fibrillation Status: Chronic (11) CKD (chronic kidney disease) Status: Chronic (12) Obstructive sleep apnea (adult) (pediatric) Status: Chronic (13) Hypothyroidism Status: Chronic (14) Pulmonary hypertension ALICIA GASCA DO Jan 03, 2022 06:18
--- NOTE | 2022-01-03 06:18 | Individualized Plan of Care ---
Individualized Plan of Care Rehab Nursing IPOC Order Admission Date Jan 01, 2022 at 15:51 Current Orders Orders Admission Order(Inpt,Obs,Sdc) (01/01/22 16:30) Vital Signs: Per Unit Policy ( 08,16,00 (01/01/22 16:30) Sequential Compression Device (01/01/22 16:30) Shop Worker-Inpt Rehab Con (01/01/22 16:30) Rehab Nursing Orders-Ipoc (01/01/22 16:30) Physical Therapy Rehab Orders (01/01/22 16:30) Occupational Therapy Rehab Ord (01/01/22 16:30) Speech Therapy Rehab Orders (01/01/22 16:30) Cbc With Automated Diff (01/02/22 06:00) Comprehensive Metabolic Panel (01/02/22 06:00) Precautions (Aru) (01/01/22 16:30) Weekly Weight WEEK (01/01/22 16:30) Rehab-Intensity Of Therapy (01/01/22 16:30) Initiate Admission Nursing Pro .admission (01/01/22 16:30) Alprazolam Tablet (Xanax Tablet) (01/01/22 16:30) Diphenhydramine Tablet (Benadryl Tablet) (01/01/22 16:30) Docusate Sodium Capsule (Colace Capsule) (01/01/22 21:00) Docusate Sodium Capsule (Colace Capsule) (01/01/22 16:30) Bisacodyl Suppository (Dulcolax Supposit (01/01/22 16:30) Na Phos/Na Biphos Enema (Fleet Enema Orlin (01/01/22 16:30) Loperamide Tablet (Imodium Tablet) (01/01/22 16:30) Enoxaparin Injection (Lovenox Injection) (01/01/22 16:30) Melatonin Tablet (Melatonin Tablet) (01/01/22 16:30) Polyethylene Glycol Powder Pkt (Miralax (01/01/22 21:00) Ondansetron Oral Dissolve Tab (Zofran (01/01/22 16:30) Senna S Tablet (Senokot S Tablet) (01/01/22 21:00) Acetaminophen Tablet/Caplet (Tylenol T (01/01/22 16:30) Code/Resuscitation (01/01/22 16:31) Ambulate 08,12,20 (01/01/22 16:31) Sequential Compression Device ONCE (01/01/22 16:31) Initiate Admission Nursing Pro .admission (01/01/22 16:31) Isolation Central Supply Req (01/01/22 16:31) General/Regular (01/01/22 Dinner) Scopolamine Patch (Transderm-Scop Patch) (01/01/22 19:00) Ns Iv 1000 Ml (Sodium Chloride 0.9%) (01/01/22 19:15) Meclizine Tablet (Antivert Tablet) (01/01/22 19:15) Meclizine Tablet (Antivert Tablet) (01/01/22 19:15) Promethazine Injection (Phenergan Injec (01/01/22 19:15) Diazepam Tablet (Valium Tablet) (01/01/22 19:15) Acetaminophen Arthritis (Tylenol Arthrit (01/01/22 21:15) Aspirin Enteric Coated Tablet (Ecotrin T (01/02/22 09:00) Atorvastatin Tablet (Lipitor Tablet) (01/02/22 09:00) Clopidogrel Tablet (Plavix Tablet) (01/02/22 09:00) Diltiazem Tablet (Cardizem Tablet) (01/01/22 21:15) Furosemide Tablet (Lasix Tablet) (01/02/22 09:00) Levothyroxine Tablet (Synthroid Tablet) (01/02/22 09:00) Metoclopramide Tablet (Reglan Tablet) (01/01/22 21:15) Metoprolol Succinate (Xl) Tab (Toprol Xl (01/02/22 09:00) Nitroglycerin 0.4 Mg Btl 25's (Nitrostat (01/01/22 21:15) [place] 3 Capsule (Fish Oil Capsule) (01/02/22 09:00) Pantoprazole Tablet (Protonix Tablet) (01/02/22 09:00) Potassium Chloride (Tablet) (K Dur Table (01/02/22 09:00) Rivaroxaban Tablet (Xarelto Tablet) (01/02/22 17:00) Sucralfate Tablet (Carafate Tablet) (01/02/22 06:00) Diltiazem Cd 24 Hr Capsule (Cardizem Cd (01/02/22 09:00) Fluticasone/Salmeterol 113-14 (Airduo Re (01/01/22 23:15) Magnesium Oxide Tablet (Mag Ox Tablet) (01/02/22 08:00) Scopolamine Patch (Transderm-Scop Patch) (01/01/22 22:11) Consult Cardiology (01/02/22 05:01) Miconazole 2% Powder (Phytoplex Af 2% Po (01/02/22 09:00) Patient Visit (01/02/22 ) Pt Eval Moderate Complexity (01/02/22 ) Functional Activities, Ea 15 (01/02/22 ) Patient Visit (01/02/22 ) Speech Sound Lang Comp (01/02/22 ) Treat. Speech/Lang/Voice (01/02/22 ) Chest 1 View, Ap/Pa Only (01/03/22 06:19) Guaifenesin/Codeine Syrup (Robitussin Ac (01/03/22 06:30) Benzonatate Capsule (Tessalon Perles) (01/03/22 09:00) Patient Visit (01/03/22 ) Gait Training, Ea 15 Min (01/03/22 ) Functional Activities, Ea 15 (01/03/22 ) Exercise Therap, Ea 15 Min (01/03/22 ) Echo W Doppler/Color Flow (01/03/22 12:06) Rehab Nursing Orders: Ongoing Assess. of Cognitive Status, Ongoing Assess. of Function Status, Bladder Management, Bladder Scan, Bladder Training, Bowel Management, Bowel Training, Disease Management & Educaiton, DVT Prophylaxis, Fall Prevention, Fluid/Electrolyte/Nutrition Mgmt, Infection Prevention, Medication Management & Education, Management of Risks & Complications, Management of Skin Intergrity, Nutrition Management, Pain Management, Pa tient/Family Support, Safety Management (Beginning a little bit of a routine year ago gets the MiraLAX well open discharge how much further and you have to do and do not get crying and upset please that makes it worse) Intensity of Therapy to be met Patient to be seen: Min.3h per day/5 of 7d PT IPOC Problem List: Activity Tolerance, Functional Strength, Safety, Balance, Gait, Transfer, ROM Treatment Plan: Continue Plan of Care ( just finished up its okay) Education, Functional Activity Abdiel, Functional Strength, Gait, Safety, Therapeutic Exercise, Transfers Treatment Duration: Jan 23, 2022 Frequency: At least 5 of 7 days/Wk (IRF) Estimated Hrs Per Day: 1.5 hours per day OT IPOC Problems: Decreased Activ Tolerance, Decreased Safety Aware, Impaired Cognition, Impaired Funct Balance, Impaired I ADL's, Impaired Self-Care Skills OT Treatment, Training and Edu: Yes Plan of Care: ADL Retraining, Cognitive Retraining, Functional Mobility, Group Exercise/Act as Ind, UE Funct Exercise/Act Treatment Duration: Jan 12, 2022 Frequency: At least 5 of 7 days/Wk (IRF) Estimated Hrs Per Day: 1.5 hours per day (75-90 min/day) ST IPOC Speech Therapy Treatment Plan: Discontinue ST Treatment Duration: Jan 02, 2022 Frequency: 1 time per week Estimated Hrs Per Day: .5 hour per day Shop Worker/Case Mgmt Shop Worker/Case Managemen: Discharge Planning Dietitian/Supervisor Money Room Dietitian/Supervisor Money Room to monitor nutritional status and make changes and/or recommendations as needed and work with speech pathology on dietary upgrades as the occur. Physician IPOC Medical Issues being managed closely and that require the 24 hour availability of a physician: Severe vertigo with severe debility with nausea and vomiting with cardiac risk factors require close monitoring with cardiology input Medical Issues: Bowel/Bladder Function, DVT Prophylaxis, Falls Precautions, Fluid/Electrolyte/Nutrition Balance, Infection Protection, Pain Management Brief Synthesis of Preadmission Screen, Post-Admission Evaluation, and Therapy Evaluations: PT and OT will focus on regaining function with use of assistive devices in order to return back home to independent living Medical Prognosis: Good Anticipated Length of Stay: 7 days ALICIA GASCA DO Jan 03, 2022 06:18
--- NOTE | 2022-01-03 07:07 | Diagnostic Imaging Report ---
EXAMINATION: Chest 1 view HISTORY: Cough COMPARISON: 01/01/2022 FINDINGS: Heart size and pulmonary vasculature are normal. The lungs are clear without consolidation, pleural effusion, or pneumothorax. The osseous structures are intact. IMPRESSION: 1. No acute radiographic abnormality in the chest. Dictated by: Dictated on workstation # [id number]
[2022-01-03 08:00] VITALS: BP 126/60
--- NOTE | 2022-01-03 08:09 | Occupational Ther Daily Note ---
OT Current Status-Daily Note Subjective Pt alert, sitting EOB. Pt agrees to therapy. No c/o pain. Mental Status/Objective Patient Orientation: Person, Place, Time, Situation ADL-Treatment Pt agrees shower. Pt independent with toilet transfer and toileting using FWW and grabbars. Pt stood at sink to wash hands without support of AD or counter. Pt independent with eating. Pt able to retrieve clothing using FWW and t [place] to area for dressing. Pt undressed in standing using FWW and wall to stabilize, CGA for safety. Pt completed shower sitting on shower bench using grabbars and hand held shower, setup to manage H2O temp. Pt donned clothing independently. Pt stood at sink without support of AD or counter to complete oral care and grooming independently. After session, pt sitting in recliner with call light/phone in reach. All needs met in room. Therapy Code Descriptions/Definitions Functional [place] Measure: 0=Not Assessed/NA 4=Minimal Assistance 1=Total Assistance 5=Supervision or Setup 2=Maximal Assistance 6=Modified [place] 3=Moderate Assistance 7=Complete IndependenceSCALE: Activities may be completed with or without assistive devices. 5-Toiecpyocj-ogdgxrd completes the activity by him/herself with no assistance from a helper. 5-Set-up or Clean-up Assistance-helper sets up or cleans up; patient completes activity. [place] assists only prior to or following the activity. 4-Supervision or Touching Assistance-helper provides verbal cues and/or touching/steadying and/or contact guard assistance as patient completes activity. Assistance may be provided throughout the activity or intermittently. 3-Partial/Moderate Assistance-helper does LESS THAN HALF the effort. [place] lifts, holds or supports trunk or limbs, but provides less than half the effort. 2-Substantial/Maximal Assistance-helper does MORE THAN HALF the effort. [place] lifts or holds trunk or limbs and provides more than half the effort. 9-Qvuztvduv-wmmwjf does ALL the effort. Patient does none of the effort to complete the activity. Or, the assistance of 2 or more helpers is required for the patient to complete the activity. If activity was not attempted, code reason: 7-Patient Refused. 9-Not Applicable-not attempted and the patient did not perform the activity before the current illness, exacerbation or injury. 10-Not Attempted due to Environmental Limitations-(lack of equipment, weather restraints, etc.). 88-Not Attempted due to Medical Conditions or Safety Concerns. Eating (QC): 6 Oral Hygiene (QC): 6 Shower/Bathe Self (QC): 5 Upper Body Dressing (QC): 6 Lower Body Dressing (QC): 4 On/Off Footwear: 6 Toileting Hygiene (QC): 6 Toilet Transfer (QC): 6 OT Short Term Goals Short Term Goals Time Frame: Jan 07, 2022 Eatin Oral hygiene: 6 Toileting hygiene: 6 Shower/bathe self: 5 Upper body dressin Lower body dressin Putting on/taking off footwear: 5 OT Senior Living Goals Insulation Supervisor Goals Time Frame: Jan 12, 2022 Eating (QC): 6 Oral Hygiene (QC): 6 Toileting Hygiene (QC): 6 Shower/Bathe Self (QC): 6 Upper Body Dressing (QC): 6 Lower Body Dressing (QC): 6 On/Off Footwear (QC): 6 1=Demonstrate adherence to instructed precautions during ADL tasks. 2=Patient will verbalize/demonstrate understanding of assistive devices/modifications for ADL. 3=Patient will improve strength/tolerance for activity to enable patient to perform ADL's. OT Education/Plan Problem List/Assessment Assessment: Decreased Activ Tolerance Discharge Recommendations Plan/Recommendations: Continue POC Treatment Plan/Plan of Care Patient would benefit from OT for education, treatment and training to promote independence in ADL's, mobility, safety and/or upper extremity function for ADL's. Plan of Care: ADL Retraining, Cognitive Retraining, Functional Mobility, Group Exercise/Act as Ind, UE Funct Exercise/Act Treatment Duration: Jan 12, 2022 Frequency: At least 5 of 7 days/Wk (IRF) Estimated Hrs Per Day: 1.5 hours per day (75-90 min/day) Agreement: Yes Rehab Potential: Fair Time/GCodes Start Time: 06:40 Stop Time: 08:10 Total Time Billed (hr/min): 90 Billed Treatment Time 1 visit-ADL 6 (90 min) NIGHAT MAYORGA Jan 03, 2022 08:09
[2022-01-03] MEDS: SENNA W/DOCUSATE (SENOKOT S) TABLET PO SCH ×2 (08:35→20:16)
[2022-01-03] MEDS: DOCUSATE SODIUM 100 MG (COLACE) CAP PO SCH ×2 (08:35→20:15)
[2022-01-03] MEDS: PANTOPRAZOLE 40 MG (PROTONIX) TAB PO SCH (08:35)
[2022-01-03] MEDS: ASPIRIN E.C. 81 MG (ECOTRIN) TAB PO SCH (08:35)
[2022-01-03] MEDS: polyethylene glycoL POWDER 17 GM (MIRALAX) PACK PO SCH ×2 (08:35→20:16)
[2022-01-03] MEDS: KCL 20 MEQ TAB (K-DUR) PO SCH (08:35)
[2022-01-03] MEDS: OMEGA 3 (FISH OIL) 1000 MG CAP PO SCH ×3 (08:35→20:15)
[2022-01-03] MEDS: CLOPIDOGREL 75 MG (PLAVIX) TABLET PO SCH (08:36)
[2022-01-03] MEDS: meTOproloL SUCCINATE 50 MG (TOPROL XL) TAB PO SCH (08:36)
[2022-01-03] MEDS: MAGNESIUM OXIDE (MAG-OX)400 MG TAB PO SCH (08:36)
[2022-01-03] MEDS: FUROSEMIDE 40 MG (LASIX) TAB PO SCH (08:36)
[2022-01-03] MEDS: BENZONATATE 100 MG (TESSALON) CAPSULE PO SCH ×3 (08:36→20:15)
[2022-01-03] MEDS: MICONAZOLE 2% POWDER (DESENEX AF) 90 GM TOP SCH ×2 (08:41→20:16)
--- NOTE | 2022-01-03 10:42 | Physical Therapy Daily Note ---
PT Daily Note-Current Subjective Pt. agrees to Rx, states she feels well and has made significant progress " except I dont really think they know why I had this episode". Pain Location: No Pain Reported Mental Status Patient Orientation: Normal For Age Transfers SCALE: Activities may be completed with or without assistive devices. 6-Hmgktjptmg-glcbfxy completes the activity by him/herself with no assistance from a helper. 5-Set-up or Clean-up Assistance-helper sets up or cleans up; patient completes activity. [place] assists only prior to or following the activity. 4-Supervision or Touching Assistance-helper provides verbal cues and/or touching/steadying and/or contact guard assistance as patient completes activity. Assistance may be provided throughout the activity or intermittently. 3-Partial/Moderate Assistance-helper does LESS THAN HALF the effort. [place] lifts, holds or supports trunk or limbs, but provides less than half the effort. 2-Substantial/Maximal Assistance-helper does MORE THAN HALF the effort. [place] lifts or holds trunk or limbs and provides more than half the effort. 0-Kxjadihgn-riqsor does ALL the effort. Patient does none of the effort to complete the activity. Or, the assistance of 2 or more helpers is required for the patient to complete the activity. If activity was not attempted, code reason: 7-Patient Refused. 9-Not Applicable-not attempted and the patient did not perform the activity before the current illness, exacerbation or injury. 10-Not Attempted due to Environmental Limitations-(lack of equipment, weather restraints, etc.). 88-Not Attempted due to Medical Conditions or Safety Concerns. Roll Left & Right (QC): 6 Sit to Lying (QC): 6 Lying to Sitting/Side of Bed(Q: 6 Sit to Stand (QC): 6 Chair/Arb-ef-Uelxv Xfer(QC): 6 pt. shares that she doesnt like to lay flat and come up as she feels dizzy when she does this , uses 3 pillows at home Gait Training Does the Patient Walk?: Yes Walk 10 feet (QC): 6 Walk 50 ft with 2 Turns(QC): 6 Walk 150 ft (QC): 6 Gait Persons Needed: 1 Gait Assistive Device: FWW [id number] no LOB, good safe use of AD Exercises Supine Ex: Bridging, Ankle pumps, Quad Set, Rolling, Glut sets, Heel Slides, Scooting, Straight leg raise, Hip abd/add Supine Reps: 20 Seated Therapy Exercises: Ankle pumps, Sit to stand, Long arc quads, Hip flexion, Hip abd/add Seated Reps: 20 NuStep Minutes: 20 NuStep Workload: 1 Treatments pt. demonstrated safe gait with FWW, enjoyed Nustep and tolerated well and requested to stay on device longer with visual guided tour of [place] Assessment Current Status: Good Progress PT Short Term Goals Short Term Goals Time Frame: Jan 09, 2022 Roll Left & Right: 6 Sit to lyin Lying to sitting on side of be: 6 Sit to stand: 4 (SBA) Chair/xyk-yz-nvrui transfer: 4 (SBA) Walk 10 feet: 4 (SBA) Walk 50 feet with two turns: 4 (SBA) Walk 150 feet: 4 (SBA) PT Jboss Developer Goals Mcc Goals PT Jboss Developer Goals Time Frame: Jan 23, 2022 Roll Left & Right (QC): 6 Sit to Lying (QC): 6 Lying-Sitting on Side/Bed(QC): 6 Sit to Stand (QC): 6 Chair/Dxc-fz-Oiarv Xfer(QC): 6 Toilet Transfer (QC): 6 Car Transfer (QC): 6 Does the Patient Walk: Yes Walk 10 feet (QC): 6 Walk 50ft with 2 Turns (QC): 6 Walk 150 ft (QC): 6 Walking 10ft on Uneven Surface: 6 1 Step (curb) (QC): 4 (SBA) 4 Steps (QC): 4 (SBA) 12 Steps (QC): 88 Picking up an Object (QC): 6 Wheel 50 feet with 2 turns (QC: 9 Wheel 150 feet: 9 PT Plan Treatment/Plan Treatment Plan: Continue Plan of Care Treatment Plan: Education, Functional Activity Abdiel, Functional Strength, Gait, Safety, Therapeutic Exercise, Transfers Treatment Duration: Jan 23, 2022 Frequency: At least 5 of 7 days/Wk (IRF) Estimated Hrs Per Day: 1.5 hours per day Patient and/or Family Agrees t: Yes Safety Risks/Education Patient Education: Gait Training, Transfer Techniques, Correct Positioning, Safety Issues Teaching Recipient: Patient Teaching Methods: Demonstration, Discussion Response to Teaching: Verbalize Understanding, Return Demonstration Time/GCodes Time In: 910 Time Out: 1040 Total Billed Treatment Time: 90 Total Billed Treatment 1,GT30m,EX35m,FA25m MAURICIO JOEL ELECTRIC MOTOR CONTROLS ASSEMBLER Jan 03, 2022 10:42
--- NOTE | 2022-01-03 12:06 | Cardiology Progress Note ---
Subjective Date Seen by Provider: Jan 03, 2022 Time Seen by Provider: 12:05 Subjective/Events-last exam Patient was seen at bedside, feeling better. Still having some weakness Review of Systems General: No Chills, No Night Sweats; Fatigue, Malaise; No Appetite, No Other HEENT: No Head Aches, No Visual Changes, No Eye Pain, No Ear Pain, No Dysphasia, No Sinus Congestion, No Post Nasal Drip, No Sore Throat, No Other Pulmonary: No Dyspnea, No Cough, No Pleuritic Chest Pain, No Other Cardiovascular: No: Chest Pain, Palpitations, Orthopnea, Paroxysmal Noc. Dyspnea, Edema, Lt Headedness, Other Objective-Cardiology Exam Last Set of Vital Signs Vital Signs 01/03/22 01/03/22 08:00 09:03 Temp 36.5 Pulse 76 Resp 18 B/P (MAP) 126/60 (82) Pulse Ox 97 O2 Delivery Room Air General: Alert, Oriented X3, Cooperative HEENT: Atraumatic, PERRLA Neck: Supple, No JVD, No Thyromegaly Lungs: Clear to Auscultation, Normal Air Movement Heart: Regular Rate, Normal S1, Normal S2, No Murmurs Abdomen: Normal Bowel Sounds, Soft, No Tenderness, No Hepatosplenomegaly, No Masses Extremities: No Clubbing, No Cyanosis, No Edema, Normal Pulses, No Tenderness/Swelling Skin: No Rashes, No Breakdown, No Significant Lesion Neuro: Normal Gait, Normal Speech, Strength at 5/5 X4 Ext, Normal Tone, Sensation Intact Psych/Mental Status: Mental Status NL, Mood NL A/P-Cardiology Admission Diagnosis Dizziness Coronary artery disease Atrial fibrillation Hypertension Assessment/Plan Dizziness and lightheadedness, received scopolamine patch, feeling better. Generalized weakness, unsteady gait, started on physical therapy. Coronary artery disease, History of multiple interventions in the past, had a total of 3 stents. Underwent cardiac catheterization on November 15, 2018 revealing moderate stenosis at the ostium of the right coronary artery, heavily calcified. 2 stents in the mid right coronary artery are patent with small vessel disease distally. Calcified left main coronary artery is moderate stenosis, nonobstructive disease. Patent stents in the mid circumflex complex artery with no obstructive disease, mild disease in LAD. Repeat cardiac catheterization was done on June 29, 2019 at balloon angioplasty to the mid right coronary artery and stenting of the ostium of the right coronary artery using Maryann 3 x 15 mm expanded to 3.25 mm with excellent results. Still have moderate stenosis at the mid left main, mid LAD and mid circumflex artery, small vessel disease. Cardiac catheterization on January 08, 2021 showing mild disease in the left system, severe stenosis at the ostium of the right coronary artery and severe in-stent restenosis in the mid right coronary artery status post multiple balloon angioplasty to the mid right coronary artery with excellent results. Multiple balloon angioplasty using a noncompliant balloon and cutting balloon to the ostium of the right coronary artery then deployment of Maryann 3 x 50 mm expanded to 3.2 mm with excellent results. Currently clinically stable. Maintained on aspirin, Plavix and Xarelto as an ou tpatient. I will discontinue Plavix and continue on aspirin and Xarelto Permanent atrial fibrillation, rate is controlled. Clinically stable. Tolerating current medication well. Continue to monitor [id number] score 5, maintained on Xarelto Echocardiogram done in August 2020 showing normal LV size with EF 55-65%, Aortic sclerosis without stenosis, PA 45-50mmHg. 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 Continue to monitor Peripheral edema, improved. Hypertension, controlled, continue to monitor Hyperlipidemia, controlled, continue to monitor Carotid artery stenosis, mild bilateral nonobstructive disease per carotid d uplex done August 2020. GEOFF THOMSON MD Jan 03, 2022 12:06
[2022-01-03] MEDS: RIVAROXABAN 15 MG TABLET (XARELTO) PO SCH (17:10)
[2022-01-03 20:12] VITALS: BP 138/77
[2022-01-03] MEDS: guaiFENesin/CODEINE (ROBITUSSIN AC) 10ML UDC PO PRN (20:17)
[2022-01-03] MEDS: ACETAMINOPHEN 325 MG TABLET PO PRN (20:46)
[2022-01-04] MEDS: guaiFENesin/CODEINE (ROBITUSSIN AC) 10ML UDC PO PRN ×2 (02:28→23:04)
[2022-01-04] MEDS: SUCRALFATE 1 GM (CARAFATE) TAB PO SCH ×4 (06:21→20:08)
[2022-01-04] MEDS: LEVOTHYROXINE 25 MCG (LEVOTHROID) TAB PO SCH (06:21)
--- NOTE | 2022-01-04 06:24 | PM&R Progress Note ---
Subjective HPI/CC On Admission Date Seen by Provider: Jan 04, 2022 Time Seen by Provider: 06:30 Subjective/Events-last exam 01/04/2022: Doing well Vertigo nearly gone Cough improved No other concerns 01/03/2022: Doing much better Vertigo is almost resolved Scopolamine patch will be maintained Cough is new so we will check chest x-ray and give cough syrup 01/02/2022: Patient doing well Much better today Slept well last night which is unusual for her Checked meds and labs Creatinine noted Scopolamine patch seems to be helpful Review of Systems General: Fatigue, Malaise Objective Exam Vital Signs Vital Signs Date Time Temp Pulse Resp B/P (MAP) Pulse Ox O2 Delivery O2 Flow Rate FiO2 01/04/22 19:27 36.8 68 20 138/62 (87) 98 Room Air 01/04/22 07:16 0.00 Capillary Refill : General Appearance: No Apparent Distress, WD/WN, Chronically ill, Obese HEENT: PERRL/EOMI, Normal ENT Inspection, Pharynx Normal Neck: Full Range of Motion, Normal Inspection, Non Tender, Supple, Carotid Bruit Respiratory: Chest Non Tender, Lungs Clear, Normal Breath Sounds, No Accessory Muscle Use, No Respiratory Distress Cardiovascular: Regular Rate, Rhythm, No Edema, No Gallop, No JVD, No Murmur, Normal Peripheral Pulses Gastrointestinal: Normal Bowel Sounds, No Organomegaly, No Pulsatile Mass, Non Tender, Soft Back: Normal Inspection, No CVA Tenderness, No Vertebral Tenderness Extremity: Normal Capillary Refill, Normal Inspection, Normal Range of Motion, Non Tender, No Calf Tenderness, No Pedal Edema Neurologic/Psychiatric: Alert, Oriented x3, No Motor/Sensory Deficits, conservation of resources commissioner II- XII Norm as Tested, Abnormal Gait, Depressed Affect, Motor Weakness (Generalized) Skin: Normal Color, Warm/Dry Lymphatic: No Adenopathy Results/Procedures Lab Patient resulted labs reviewed. FIM Transfers Therapy Code Descriptions/Definitions Functional [place] Measure: 0=Not Assessed/NA 4=Minimal Assistance 1=Total Assistance 5=Supervision or Setup 2=Maximal Assistance 6=Modified [place] 3=Moderate Assistance 7=Complete IndependenceSCALE: Activities may be completed with or without assistive devices. 3-Fbsoulpizx-zaedxrb completes the activity by him/herself with no assistance from a helper. 5-Set-up or Clean-up Assistance-helper sets up or cleans up; patient completes activity. [place] assists only prior to or following the activity. 4-Supervision or Touching Assistance-helper provides verbal cues and/or touching/steadying and/or contact guard assistance as patient completes activity. Assistance may be provided throughout the activity or intermittently. 3-Partial/Moderate Assistance-helper does LESS THAN HALF the effort. [place] lifts, holds or supports trunk or limbs, but provides less than half the effort. 2-Substantial/Maximal Assistance-helper does MORE THAN HALF the effort. [place] lifts or holds trunk or limbs and provides more than half the effort. 7-Usdqquigt-jipkce does ALL the effort. Patient does none of the effort to complete the activity. Or, the assistance of 2 or more helpers is required for the patient to complete the activity. If activity was not attempted, code reason: 7-Patient Refused. 9-Not Applicable-not attempted and the patient did not perform the activity before the current illness, exacerbation or injury. 10-Not Attempted due to Environmental Limitations-(lack of equipment, weather restraints, etc.). 88-Not Attempted due to Medical Conditions or Safety Concerns. Roll Left to Right (QC): 6 Sit to Lying (QC): 6 Sit to Stand (QC): 6 Chair/Bwa-jc-Vaijn Xfer(QC): 6 Car Transfer (QC): 4 Gait Training Does the Patient Walk?: Yes Walk 10 feet (QC): 6 Walk 50 ft with 2 Turns(QC): 6 Walk 150 ft (QC): 6 Walking 10ft/uneven surface-QC: 4 Gait Persons Needed: 1 Gait Assistive Device: FWW Wheelchair Training Does the Pt Use a Wheelchair?: No Wheel 50 ft with 2 turns (QC): 9 Wheel 150 ft (QC): 9 Stair Training #of Steps: 4 1 Step (curb) (QC): 4 4 Steps (QC): 4 12 Steps (QC): 88 Balance Picking up an Object (QC): 4 (CGA with emotional support teacher) ADL-Treatment Eating (QC): 6 Oral Hygiene (QC): 6 Shower/Bathe Self (QC): 5 Upper Body Dressing (QC): 6 Lower Body Dressing (QC): 4 On/Off Footwear (QC): 6 Toileting Hygiene (QC): 6 Toilet Transfer (QC): 6 Assessment/Plan Assessment and Plan Assess & Plan/Chief Complaint Assessment: (1) Coronary artery disease with unstable angina pectoris (2) Permanent atrial fibrillation (3) CKD (chronic kidney disease) (4) Obstructive sleep apnea (adult) (pediatric) (5) Mixed hyperlipidemia (6) Essential hypertension (7) Obesity (8) Hypothyroidism Plan: Supportive care Gentle IV fluids Meclizine Valium Scopolamine patch 01/02/2022: Continue IV fluids Scopolamine patch 01/03/2022: Check chest x-ray Antitussives 01/04/2022: Monitor cough and vertigo (1) Dizziness Status: Acute (2) Generalized weakness Status: Acute (3) Chronic CHF Status: Acute (4) Chronic renal insufficiency Status: Acute (5) Vertigo (6) Obesity Status: Chronic (7) Mixed hyperlipidemia Status: Chronic (8) Essential hypertension Status: Chronic (9) Coronary artery disease with unstable angina pectoris Status: Acute (10) Permanent atrial fibrillation Status: Chronic (11) CKD (chronic kidney disease) Status: Chronic (12) Obstructive sleep apnea (adult) (pediatric) Status: Chronic (13) Hypothyroidism Status: Chronic (14) Pulmonary hypertension ALICIA GASCA DO Jan 04, 2022 06:24
[2022-01-04] MEDS ORDERED: SCOPOLAMINE 1.5 MG (TRANSDERM-SCOP) PATCH TD ONE (06:30)
[2022-01-04 07:07] VITALS: BP 133/74
[2022-01-04] MEDS: KCL 20 MEQ TAB (K-DUR) PO SCH (08:24)
[2022-01-04] MEDS: MICONAZOLE 2% POWDER (DESENEX AF) 90 GM TOP SCH ×2 (08:25→20:09)
[2022-01-04] MEDS: DOCUSATE SODIUM 100 MG (COLACE) CAP PO SCH ×2 (08:25→20:09)
[2022-01-04] MEDS: meTOproloL SUCCINATE 50 MG (TOPROL XL) TAB PO SCH (08:25)
[2022-01-04] MEDS: ASPIRIN E.C. 81 MG (ECOTRIN) TAB PO SCH (08:25)
[2022-01-04] MEDS: BENZONATATE 100 MG (TESSALON) CAPSULE PO SCH ×3 (08:25→20:08)
[2022-01-04] MEDS: PANTOPRAZOLE 40 MG (PROTONIX) TAB PO SCH (08:25)
[2022-01-04] MEDS: MAGNESIUM OXIDE (MAG-OX)400 MG TAB PO SCH (08:25)
[2022-01-04] MEDS: FUROSEMIDE 40 MG (LASIX) TAB PO SCH (08:25)
[2022-01-04] MEDS: SENNA W/DOCUSATE (SENOKOT S) TABLET PO SCH ×2 (08:25→20:09)
[2022-01-04] MEDS: OMEGA 3 (FISH OIL) 1000 MG CAP PO SCH ×3 (08:25→20:08)
[2022-01-04] MEDS: CLOPIDOGREL 75 MG (PLAVIX) TABLET PO SCH (08:32)
[2022-01-04] MEDS: polyethylene glycoL POWDER 17 GM (MIRALAX) PACK PO SCH ×2 (08:32→20:08)
--- NOTE | 2022-01-04 12:58 | Cardiology Progress Note ---
Subjective Date Seen by Provider: Jan 04, 2022 Time Seen by Provider: 12:58 Subjective/Events-last exam Patient was seen at bedside, laying down comfortably, feeling better today. No new complaint Review of Systems General: No Chills, No Night Sweats, No Fatigue, No Malaise, No Appetite, No Other HEENT: No Head Aches, No Visual Changes, No Eye Pain, No Ear Pain, No Dysphasia, No Sinus Congestion, No Post Nasal Drip, No Sore Throat, No Other Pulmonary: No Dyspnea, No Cough, No Pleuritic Chest Pain, No Other Cardiovascular: No: Chest Pain, Palpitations, Orthopnea, Paroxysmal Noc. Dyspne a, Edema, Lt Headedness, Other Objective-Cardiology Exam Last Set of Vital Signs Vital Signs 01/04/22 01/04/22 01/04/22 07:07 07:16 09:39 Temp 36.4 Pulse 75 Resp 20 B/P (MAP) 133/74 (93) Pulse Ox 97 O2 Delivery Room Air O2 Flow Rate 0.00 General: Alert, Oriented X3, Cooperative HEENT: Atraumatic, PERRLA Neck: Supple, No JVD, No Thyromegaly Lungs: Clear to Auscultation, Normal Air Movement Heart: Regular Rate, Normal S1, Normal S2, No Murmurs Abdomen: Normal Bowel Sounds, Soft, No Tenderness, No Hepatosplenomegaly, No Masses Extremities: No Clubbing, No Cyanosis, No Edema, Normal Pulses, No Tenderness/Swelling Skin: No Rashes, No Breakdown, No Significant Lesion Neuro: Normal Gait, Normal Speech, Strength at 5/5 X4 Ext, Normal Tone, Sensation Intact Psych/Mental Status: Mental Status NL, Mood NL A/P-Cardiology Admission Diagnosis Dizziness Coronary artery disease Atrial fibrillation Hypertension Assessment/Plan Dizziness and lightheadedness, received scopolamine patch, feeling better. Generalized weakness, unsteady gait, started on physical therapy. Coronary artery disease, History of multiple interventions in the past, had a total of 3 stents. Underwent cardiac catheterization on November 15, 2018 revealing moderate stenosis at the ostium of the right coronary artery, heavily calcified. 2 stents in the mid right coronary artery are patent with small vessel disease distally. Calcified left main coronary artery is moderate stenosis, nonobstructive disease. Patent stents in the mid circumflex complex artery with no obstructive disease, mild disease in LAD. Repeat cardiac catheterization was done on June 29, 2019 at balloon angioplasty to the mid right coronary artery and stenting of the ostium of the right coronary artery using Maryann 3 x 15 mm expanded to 3.25 mm with excellent results. Still have moderate stenosis at the mid left main, mid LAD and mid circumflex artery, small vessel disease. Cardiac catheterization on January 08, 2021 showing mild disease in the left system, severe stenosis at the ostium of the right coronary artery and severe in-stent restenosis in the mid right coronary artery status post multiple balloon angioplasty to the mid right coronary artery with excellent results. Multiple balloon angioplasty using a noncompliant balloon and cutting balloon to the ostium of the right coronary artery then deployment of Maryann 3 x 50 mm expanded to 3.2 mm with excellent results. Currently clinically stable. Maintained on aspirin, Plavix and Xarelto as an outpatient. I will discontinue Plavix and continue on aspirin and Xarelto Permanent atrial fibrillation, rate is controlled. Clinically stable. Tolerating current medication well. Continue to monitor [id number] score 5, maintained on Xarelto Echocardiogram done in August 2020 showing normal LV size with EF 55-65%, Aortic sclerosis without stenosis, PA 45-50mmHg. 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 Continue to monitor Peripheral edema, improved. Hypertension, controlled, continue to monitor Hyperlipidemia, controlled, continue to monitor Carotid artery stenosis, mild bilateral nonobstructive disease per carotid duplex done August 2020. GEOFF THOMSON MD Jan 04, 2022 12:58
[2022-01-04] MEDS: RIVAROXABAN 15 MG TABLET (XARELTO) PO SCH (16:07)
[2022-01-04] MEDS: ACETAMINOPHEN 325 MG TABLET PO PRN (17:57)
[2022-01-04 19:27] VITALS: BP 138/62
--- NOTE | 2022-01-05 04:16 | PM&R Progress Note ---
Subjective HPI/CC On Admission Date Seen by Provider: Jan 05, 2022 Subjective/Events-last exam 01/05/2022: Patient doing well No vertigo Discharge planned on Wednesday No falls Cough is improved 01/04/2022: Doing well Vertigo nearly gone Cough improved No other concerns 01/03/2022: Doing much better Vertigo is almost resolved Scopolamine patch will be maintained Cough is new so we will check chest x-ray and give cough syrup 01/02/2022: Patient doing well Much better today Slept well last night which is unusual for her Checked meds and labs Creatinine noted Scopolamine patch seems to be helpful Review of Systems General: Fatigue, Malaise Objective Exam Vital Signs Vital Signs Date Time Temp Pulse Resp B/P (MAP) Pulse Ox O2 Delivery O2 Flow Rate FiO2 01/05/22 20:10 Room Air 01/05/22 20:00 36.8 61 18 139/64 (89) 97 01/05/22 07:31 0.00 Capillary Refill : General Appearance: No Apparent Distress, WD/WN, Chronically ill, Obese HEENT: PERRL/EOMI, Normal ENT Inspection, Pharynx Normal Neck: Full Range of Motion, Normal Inspection, Non Tender, Supple, Carotid Bruit Respiratory: Chest Non Tender, Lungs Clear, Normal Breath Sounds, No Accessory Muscle Use, No Respiratory Distress Cardiovascular: Regular Rate, Rhythm, No Edema, No Gallop, No JVD, No Murmur, Normal Peripheral Pulses Gastrointestinal: Normal Bowel Sounds, No Organomegaly, No Pulsatile Mass, Non Tender, Soft Back: Normal Inspection, No CVA Tenderness, No Vertebral Tenderness Extremity: Normal Capillary Refill, Normal Inspection, Normal Range of Motion, Non Tender, No Calf Tenderness, No Pedal Edema Neurologic/Psychiatric: Alert, Oriented x3, No Motor/Sensory 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 FIM Transfers Therapy Code Descriptions/Definitions Functional [place] Measure: 0=Not Assessed/NA 4=Minimal Assistance 1=Total Assistance 5=Supervision or Setup 2=Maximal Assistance 6=Modified [place] 3=Moderate Assistance 7=Complete IndependenceSCALE: Activities may be completed with or without assistive devices. 9-Hjzzrmlglu-vkdfmlm completes the activity by him/herself with no assistance from a helper. 5-Set-up or Clean-up Assistance-helper sets up or cleans up; patient completes activity. [place] assists only prior to or following the activity. 4-Supervision or Touching Assistance-helper provides verbal cues and/or francheska elvis/steadying and/or contact guard assistance as patient completes activity. Assistance may be provided throughout the activity or intermittently. 3-Partial/Moderate Assistance-helper does LESS THAN HALF the effort. [place] lifts, holds or supports trunk or limbs, but provides less than half the effort. 2-Substantial/Maximal Assistance-helper does MORE THAN HALF the effort. [place] lifts or holds trunk or limbs and provides more than half the effort. 5-Qyorldlxp-hwaxuf does ALL the effort. Patient does none of the effort to complete the activity. Or, the assistance of 2 or more helpers is required for the patient to complete the activity. If activity was not attempted, code reason: 7-Patient Refused. 9-Not Applicable-not attempted and the patient did not perform the activity before the current illness, exacerbation or injury. 10-Not Attempted due to Environmental Limitations-(lack of equipment, weather restraints, etc.). 88-Not Attempted due to Medical Conditions or Safety Concerns. Roll Left to Right (QC): 6 Sit to Lying (QC): 6 Sit to Stand (QC): 6 Chair/Pea-zc-Vzlke Xfer(QC): 6 Car Transfer (QC): 4 Gait Training Does the Patient Walk?: Yes Walk 10 feet (QC): 6 Walk 50 ft with 2 Turns(QC): 6 Walk 150 ft (QC): 6 Walking 10ft/uneven surface-QC: 4 Gait Persons Needed: 1 Gait Assistive Device: FWW Wheelchair Training Does the Pt Use a Wheelchair?: No Wheel 50 ft with 2 turns (QC): 9 Wheel 150 ft (QC): 9 Stair Training #of Steps: 4 1 Step (curb) (QC): 4 4 Steps (QC): 4 12 Steps (QC): 88 Balance Picking up an Object (QC): 4 (CGA with carton filling machine operator) ADL-Treatment Eating (QC): 6 Oral Hygiene (QC): 6 Shower/Bathe Self (QC): 5 Upper Body Dressing (QC): 6 Lower Body Dressing (QC): 4 On/Off Footwear (QC): 6 Toileting Hygiene (QC): 6 Toilet Transfer (QC): 6 Assessment/Plan Assessment and Plan Assess & Plan/Chief Complaint Assessment: (1) Coronary artery disease with unstable angina pectoris (2) Permanent atrial fibrillation (3) CKD (chronic kidney disease) (4) Obstructive sleep apnea (adult) (pediatric) (5) Mixed hyperlipidemia (6) Essential hypertension (7) Obesity (8) Hypothyroidism Plan: Supportive care Gentle IV fluids Meclizine Valium Scopolamine patch 01/02/2022: Continue IV fluids Scopolamine patch 01/03/2022: Check chest x-ray Antitussives 01/04/2022: Monitor cough and vertigo 01/05/2022: Supportive care Discharge Wednesday (1) Dizziness Status: Acute (2) Generalized weakness Status: Acute (3) Chronic CHF Status: Acute (4) Chronic renal insufficiency Status: Acute (5) Vertigo (6) Obesity Status: Chronic (7) Mixed hyperlipidemia Status: Chronic (8) Essential hypertension Status: Chronic (9) Coronary artery disease with unstable angina pectoris Status: Acute (10) Permanent atrial fibrillation Status: Chronic (11) CKD (chronic kidney disease) Status: Chronic (12) Obstructive sleep apnea (adult) (pediatric) Status: Chronic (13) Hypothyroidism Status: Chronic (14) Pulmonary hypertension ALICIA GASCA DO Jan 05, 2022 04:16
[2022-01-05 05:43] LABS: BASOPHILS # (AUTO) 0.1 10^3/uL (0.0-0.1); BASOPHILS % (AUTO) 1 % (0-10); EOSINOPHILS # (AUTO) 0.2 10^3/uL (0.0-0.3); EOSINOPHILS % (AUTO) 3 % (0-10); HEMATOCRIT 38 % (35-52); HEMOGLOBIN 11.7 g/dL (11.5-16.0); LYMPHOCYTES # (AUTO) 1.4 10^3/uL (1.0-4.0); LYMPHOCYTES % (AUTO) 20 % (12-44); MEAN CORPUSCULAR HEMOGLOBIN 25 pg (25-34); MEAN CORPUSCULAR HGB CONC 31 g/dL (32-36); MEAN CORPUSCULAR VOLUME 83 fL (80-99); MEAN PLATELET VOLUME 9.7 fL (9.0-12.2); MONOCYTES # (AUTO) 0.8 10^3/uL (0.0-1.0); MONOCYTES % (AUTO) 11 % (0-12); NEUTROPHILS # (AUTO) 4.7 10^3/uL (1.8-7.8); NEUTROPHILS % (AUTO) 65 % (42-75); PLATELET COUNT 271 10^3/uL (130-400); WHITE BLOOD COUNT 7.2 10^3/uL (4.3-11.0)
[2022-01-05 05:56] LABS: ALBUMIN 3.8 GM/DL (3.2-4.5)
[2022-01-05 05:58] LABS: CALCIUM 9.1 MG/DL (8.5-10.1)
[2022-01-05 05:59] LABS: TOTAL PROTEIN 6.7 GM/DL (6.4-8.2)
[2022-01-05 06:01] LABS: BILIRUBIN,TOTAL 0.4 MG/DL (0.1-1.0)
[2022-01-05 06:02] LABS: CREATININE SERUM 1.5 MG/DL (0.60-1.30)
[2022-01-05] MEDS: SUCRALFATE 1 GM (CARAFATE) TAB PO SCH ×4 (06:43→20:54)
[2022-01-05] MEDS: LEVOTHYROXINE 25 MCG (LEVOTHROID) TAB PO SCH (06:43)
[2022-01-05 07:18] VITALS: BP 141/68
[2022-01-05] MEDS: polyethylene glycoL POWDER 17 GM (MIRALAX) PACK PO SCH ×2 (08:45→19:37)
[2022-01-05] MEDS: BENZONATATE 100 MG (TESSALON) CAPSULE PO SCH ×3 (08:45→20:55)
[2022-01-05] MEDS: ASPIRIN E.C. 81 MG (ECOTRIN) TAB PO SCH (08:45)
[2022-01-05] MEDS: CLOPIDOGREL 75 MG (PLAVIX) TABLET PO SCH (08:46)
[2022-01-05] MEDS: MAGNESIUM OXIDE (MAG-OX)400 MG TAB PO SCH (08:46)
[2022-01-05] MEDS: SENNA W/DOCUSATE (SENOKOT S) TABLET PO SCH ×2 (08:46→20:55)
[2022-01-05] MEDS: meTOproloL SUCCINATE 50 MG (TOPROL XL) TAB PO SCH (08:46)
[2022-01-05] MEDS: PANTOPRAZOLE 40 MG (PROTONIX) TAB PO SCH (08:46)
[2022-01-05] MEDS: FUROSEMIDE 40 MG (LASIX) TAB PO SCH (08:46)
[2022-01-05] MEDS: OMEGA 3 (FISH OIL) 1000 MG CAP PO SCH ×3 (08:46→20:54)
[2022-01-05] MEDS: KCL 20 MEQ TAB (K-DUR) PO SCH (08:46)
[2022-01-05] MEDS: MICONAZOLE 2% POWDER (DESENEX AF) 90 GM TOP SCH ×2 (08:46→20:55)
[2022-01-05] MEDS: DOCUSATE SODIUM 100 MG (COLACE) CAP PO SCH ×2 (08:46→20:55)
--- NOTE | 2022-01-05 08:53 | Occupational Ther Daily Note ---
OT Current Status-Daily Note Subjective Pt alert, sitting in recliner. Pt agrees to therapy. No c/o pain. Mental Status/Objective Patient Orientation: Person, Place, Time, Situation ADL-Treatment Pt agrees to shower. Independent with eating. Using FWW, pt gathered clothing from closet independently then transported to bathroom. Independent with toilet transfer and toileting. Independent with shower using shower bench, grabbar and hand held shower. Independent with all dressing. Independent with oral care standing at sink with no support. Therapy Code Descriptions/Definitions Functional [place] Measure: 0=Not Assessed/NA 4=Minimal Assistance 1=Total Assistance 5=Supervision or Setup 2=Maximal Assistance 6=Modified [place] 3=Moderate Assistance 7=Complete IndependenceSCALE: Activities may be completed with or without assistive devices. 8-Weqwztrojl-hdvrfqr completes the activity by him/herself with no assistance from a helper. 5-Set-up or Clean-up Assistance-helper sets up or cleans up; patient completes activity. [place] assists only prior to or following the activity. 4-Supervision or Touching Assistance-helper provides verbal cues and/or touching/steadying and/or contact guard assistance as patient completes activity. Assistance may be provided throughout the activity or intermittently. 3-Partial/Moderate Assistance-helper does LESS THAN HALF the effort. [place] lifts, holds or supports trunk or limbs, but provides less than half the effort. 2-Substantial/Maximal Assistance-helper does MORE THAN HALF the effort. [place] lifts or holds trunk or limbs and provides more than half the effort. 8-Ytymltexj-qkgyxm does ALL the effort. Patient does none of the effort to complete the activity. Or, the assistance of 2 or more helpers is required for the patient to complete the activity. If activity was not attempted, code reason: 7-Patient Refused. 9-Not Applicable-not attempted and the patient did not perform the activity before the current illness, exacerbation or injury. 10-Not Attempted due to Environmental Limitations-(lack of equipment, weather restraints, etc.). 88-Not Attempted due to Medical Conditions or Safety Concerns. Eating (QC): 6 Oral Hygiene (QC): 6 Shower/Bathe Self (QC): 6 Upper Body Dressing (QC): 6 Lower Body Dressing (QC): 6 On/Off Footwear: 6 Toileting Hygiene (QC): 6 Toilet Transfer (QC): 6 Other Treatment Pt ambulated the length and back of 2nd floor with 1 recovery break. No dizziness noted. Pt completed dynamic standing activity 3x's without LOB and one recovery break. Pt completed B UE strengthening with 3# wt to increase strength for daily functional tasks. Due to pain in L shldr front punch and shldr abd/add was modified, 2 sets 10 reps of 3 exercises. Massage and AROM to L shldr increased ROM and decreased pain. Pt has tightness in anterior of L shldr with inflammation of bicep tendon. After session, pt sitting in recliner with call light/phone in reach. All needs met. OT Short Term Goals Short Term Goals Time Frame: Jan 07, 2022 Eatin Oral hygiene: 6 Toileting hygiene: 6 Shower/bathe self: 5 Upper body dressin Lower body dressin Putting on/taking off footwear: 5 OT Skilled Nursing Goals Member Services Representative Goals Time Frame: Jan 12, 2022 Eating (QC): 6 (met) Oral Hygiene (QC): 6 (met) Toileting Hygiene (QC): 6 (met) Shower/Bathe Self (QC): 6 (met) Upper Body Dressing (QC): 6 (met) Lower Body Dressing (QC): 6 (met) On/Off Footwear (QC): 6 (met) 1=Demonstrate adherence to instructed precautions during ADL tasks. 2=Patient will verbalize/demonstrate understanding of assistive devices/modifications for ADL. 3=Patient will improve strength/tolerance for activity to enable patient to perform ADL's. OT Education/Plan Problem List/Assessment Assessment: Decreased Activ Tolerance Discharge Recommendations Plan/Recommendations: Continue POC Treatment Plan/Plan of Care Patient would benefit from OT for education, treatment and training to promote independence in ADL's, mobility, safety and/or upper extremity function for ADL's. Plan of Care: ADL Retraining, Cognitive Retraining, Functional Mobility, Group Exercise/Act as Ind, UE Funct Exercise/Act Treatment Duration: Jan 12, 2022 Frequency: At least 5 of 7 days/Wk (IRF) Estimated Hrs Per Day: 1.5 hours per day (75-90 min/day) Agreement: Yes Rehab Potential: Fair Time/GCodes Start Time: 07:15 Stop Time: 08:45 Total Time Billed (hr/min): 90 Billed Treatment Time 1 visit-ADL 5 (70 min) EX 1 (20 min) NIGHAT MAYORGA Jan 05, 2022 08:53
--- NOTE | 2022-01-05 11:19 | Cardiology Progress Note ---
Subjective Date Seen by Provider: Jan 05, 2022 Time Seen by Provider: 11:18 Subjective/Events-last exam Patient was seen at bedside, laying down comfortably, feeling better. Complaining of constipation Review of Systems General: No Chills, No Night Sweats; Fatigue; No Malaise, No Appetite, No Other HEENT: No Head Aches, No Visual Changes, No Eye Pain, No Ear Pain, No Dysphasia, No Sinus Congestion, No Post Nasal Drip, No Sore Throat, No Other Pulmonary: No Dyspnea, No Cough, No Pleuritic Chest Pain, No Other Cardiovascular: No: Chest Pain, Palpitations, Orthopnea, Paroxysmal Noc. Dyspnea, Edema, Lt Headedness, Other Objective-Cardiology Exam Last Set of Vital Signs Vital Signs 01/05/22 01/05/22 01/05/22 07:18 07:31 09:34 Temp 36.3 Pulse 66 Resp 18 B/P (MAP) 141/68 (92) Pulse Ox 95 O2 Delivery Room Air O2 Flow Rate 0.00 General: Alert, Oriented X3, Cooperative HEENT: Atraumatic, PERRLA Neck: Supple, No JVD, No Thyromegaly Lungs: Clear to Auscultation, Normal Air Movement Heart: Regular Rate, Normal S1, Normal S2, No Murmurs Abdomen: Normal Bowel Sounds, Soft, No Tenderness, No Hepatosplenomegaly, No Masses Extremities: No Clubbing, No Cyanosis, No Edema, Normal Pulses, No Tenderness/Swelling Skin: No Rashes, No Breakdown, No Significant Lesion Neuro: Normal Gait, Normal Speech, Strength at 5/5 X4 Ext, Normal Tone, Sensation Intact Psych/Mental Status: Mental Status NL, Mood NL Results Lab Laboratory Tests 01/05/22 05:24 A/P-Cardiology Admission Diagnosis Dizziness Coronary artery disease Atrial fibrillation Hypertension Assessment/Plan Dizziness and lightheadedness, received scopolamine patch, feeling better. Constipation, managed by primary care physician Generalized weakness, unsteady gait, started on physical therapy. Coronary artery disease, History of multiple interventions in the past, had a total of 3 stents. Underwent cardiac catheterization on November 15, 2018 revealing moderate stenosis at the ostium of the right coronary artery, heavily calcified. 2 stents in the mid right coronary artery are patent with small vessel disease distally. Calcified left main coronary artery is moderate stenosis, nonobstructive disease. Patent stents in the mid circumflex complex artery with no obstructive disease, mild disease in LAD. Repeat cardiac catheterization was done on June 29, 2019 at balloon angioplasty to the mid right coronary artery and stenting of the ostium of the right coronary artery using Maryann 3 x 15 mm expanded to 3.25 mm with excellent results. Still have moderate stenosis at the mid left main, mid LAD and mid circumflex artery, small vessel disease. Cardiac catheterization on January 08, 2021 showing mild disease in the left system, severe stenosis at the ostium of the right coronary artery and severe in-stent restenosis in the mid right coronary artery status post multiple balloon angioplasty to the mid right coronary artery with excellent results. Multiple balloon angioplasty using a noncompliant balloon and cutting balloon to the ostium of the right coronary artery then deployment of Maryann 3 x 50 mm expanded to 3.2 mm with excellent results. Currently clinically stable. Maintained on aspirin, Plavix and Xarelto as an outpatient. I will discontinue Plavix and continue on aspirin and Xarelto Permanent atrial fibrillation, rate is controlled. Clinically stable. Tolerating current medication well. Continue to monitor [id number] score 5, maintained on Xarelto Echocardiogram done in August 2020 showing normal LV size with EF 55-65%, Aortic sclerosis without stenosis, PA 45-50mmHg. 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 Continue to monitor Peripheral edema, improved. Hypertension, controlled, continue to monitor Hyperlipidemia, controlled, continue to monitor Carotid artery stenosis, mild bilateral nonobstructive disease per carotid duplex done August 2020. GEOFF THOMSON MD Jan 05, 2022 11:18
--- NOTE | 2022-01-05 12:17 | Physical Therapy Daily Note ---
PT Daily Note-Current Subjective Pt sitting in recliner upon arrival. Pt agrees to PT. Mental Status Patient Orientation: Person, Place, Time, Situation Transfers SCALE: Activities may be completed with or without assistive devices. 0-Hymitjinxj-updpmft completes the activity by him/herself with no assistance from a helper. 5-Set-up or Clean-up Assistance-helper sets up or cleans up; patient completes activity. [place] assists only prior to or following the activity. 4-Supervision or Touching Assistance-helper provides verbal cues and/or touching/steadying and/or contact guard assistance as patient completes activity. Assistance may be provided throughout the activity or intermittently. 3-Partial/Moderate Assistance-helper does LESS THAN HALF the effort. [place] lifts, holds or supports trunk or limbs, but provides less than half the effort. 2-Substantial/Maximal Assistance-helper does MORE THAN HALF the effort. [place] lifts or holds trunk or limbs and provides more than half the effort. 6-Sgvzxtxsv-uyogjx does ALL the effort. Patient does none of the effort to complete the activity. Or, the assistance of 2 or more helpers is required for the patient to complete the activity. If activity was not attempted, code reason: 7-Patient Refused. 9-Not Applicable-not attempted and the patient did not perform the activity before the current illness, exacerbation or injury. 10-Not Attempted due to Environmental Limitations-(lack of equipment, weather restraints, etc.). 88-Not Attempted due to Medical Conditions or Safety Concerns. Roll Left & Right (QC): 6 Sit to Lying (QC): 6 Lying to Sitting/Side of Bed(Q: 6 Sit to Stand (QC): 6 Chair/Ybn-iv-Guhcz Xfer(QC): 6 Toilet Transfer (QC): 6 Car Transfer (QC): 5 Weight Bearing Full Weight Bearing Full Weight Bearing Gait Training Does the Patient Walk?: Yes Distance: 500' Walk 10 feet (QC): 6 Walk 50 ft with 2 Turns(QC): 6 Walk 150 ft (QC): 5 Walking 10ft/uneven surface-QC: 6 Gait Assistive Device: FWW Wheelchair Training Does the Pt Use a Wheelchair?: No Stair Training Stair Training: Handrails/: 2 handrails #of Steps: 12 1 Step (curb) (QC): 5 4 Steps (QC): 5 12 Steps (QC): 5 Stairs: Pattern: Reciprocal Balance Picking up an Object (QC): 6 Treatments [id number]: TF to standing, uses BR then amb in hallway. Pt completes QC scoring items listed above to test when d/c should be set. Pt amb. in hallway, returning to room at end of tx to rest in recliner for lunch. All needs met, call light in hand. [id number]: Pt stands and amb. to BR. After finishing, pt amb. in hallway before returning to room to rest in bed. All needs met, call light in hand. Assessment Current Status: Good Progress Pt is able to complete tasks given with little instruction, working on balance as pt is concerned for home. PT Short Term Goals Short Term Goals Time Frame: Jan 09, 2022 Roll Left & Right: 6 Sit to lyin Lying to sitting on side of be: 6 Sit to stand: 4 (SBA) Chair/qmm-mm-kmqey transfer: 4 (SBA) Walk 10 feet: 4 (SBA) Walk 50 feet with two turns: 4 (SBA) Walk 150 feet: 4 (SBA) PT Half-Way Goals Half-Way Goals PT Half-Way Goals Time Frame: Jan 23, 2022 Roll Left & Right (QC): 6 Sit to Lying (QC): 6 Lying-Sitting on Side/Bed(QC): 6 Sit to Stand (QC): 6 Chair/Mrr-qp-Rmksr Xfer(QC): 6 Toilet Transfer (QC): 6 Car Transfer (QC): 6 Does the Patient Walk: Yes Walk 10 feet (QC): 6 Walk 50ft with 2 Turns (QC): 6 Walk 150 ft (QC): 6 Walking 10ft on Uneven Surface: 6 1 Step (curb) (QC): 4 (SBA) 4 Steps (QC): 4 (SBA) 12 Steps (QC): 88 Picking up an Object (QC): 6 Wheel 50 feet with 2 turns (QC: 9 Wheel 150 feet: 9 PT Plan Problem List Problem List: Activity Tolerance Treatment/Plan Treatment Plan: Continue Plan of Care Treatment Plan: Education, Functional Activity Abdiel, Functional Strength, Gait, Safety, Therapeutic Exercise, Transfers Treatment Duration: Jan 23, 2022 Frequency: At least 5 of 7 days/Wk (IRF) Estimated Hrs Per Day: 1.5 hours per day Patient and/or Family Agrees t: Yes Time/GCodes Time In: 1100 Time Out: 1200 Total Billed Treatment Time: 60 Total Billed Treatment [id number]: 1, GT x2 (30m) & FA x2 (30m) [id number]: 1, FA (15m) & GT (15m) NIKO HOFFMAN [employer] H[employer] TEACHER Jan 05, 2022 12:17
[2022-01-05] MEDS ORDERED: BISACODYL 10 MG SUPP (DULCOLAX) PR ONE (14:30)
[2022-01-05] MEDS: RIVAROXABAN 15 MG TABLET (XARELTO) PO SCH (16:50)
[2022-01-05 20:00] VITALS: BP 139/64
[2022-01-05] MEDS: ACETAMINOPHEN 325 MG TABLET PO PRN (20:54)
[2022-01-05] MEDS: guaiFENesin/CODEINE (ROBITUSSIN AC) 10ML UDC PO PRN (21:00)
[2022-01-06] MEDS: LEVOTHYROXINE 25 MCG (LEVOTHROID) TAB PO SCH (06:11)
[2022-01-06] MEDS: SUCRALFATE 1 GM (CARAFATE) TAB PO SCH ×4 (06:11→20:24)
[2022-01-06 07:34] VITALS: BP 137/78
--- NOTE | 2022-01-06 08:12 | Cardiology Progress Note ---
Subjective Date Seen by Provider: Jan 06, 2022 Time Seen by Provider: 08:11 Subjective/Events-last exam Patient was seen during physical therapy session. Feeling better, complaining of cough. Review of Systems General: No Chills, No Night Sweats, No Fatigue, No Malaise, No Appetite, No Other HEENT: No Head Aches, No Visual Changes, No Eye Pain, No Ear Pain, No Dysphasia, No Sinus Congestion, No Post Nasal Drip, No Sore Throat, No Other Pulmonary: No Dyspnea; Cough; No Pleuritic Chest Pain, No Other Cardiovascular: No: Chest Pain, Palpitations, Orthopnea, Paroxysmal Noc. Dyspnea, Edema, Lt Headedness, Other Objective-Cardiology Exam Last Set of Vital Signs Vital Signs 01/05/22 01/06/22 07:31 07:34 Temp 36.6 Pulse 75 Resp 18 B/P (MAP) 137/78 (97) Pulse Ox 97 O2 Delivery Room Air O2 Flow Rate 0.00 General: Alert, Oriented X3, Cooperative HEENT: Atraumatic, PERRLA Neck: Supple, No JVD, No Thyromegaly Lungs: Clear to Auscultation, Normal Air Movement Heart: Regular Rate, Normal S1, Normal S2, No Murmurs Abdomen: Normal Bowel Sounds, Soft, No Tenderness, No Hepatosplenomegaly, No Masses Extremities: No Clubbing, No Cyanosis, No Edema, Normal Pulses, No Tenderness/Swelling Skin: No Rashes, No Breakdown, No Significant Lesion Neuro: Normal Gait, Normal Speech, Strength at 5/5 X4 Ext, Normal Tone, Sensation Intact Psych/Mental Status: Mental Status NL, Mood NL A/P-Cardiology Admission Diagnosis Dizziness Coronary artery disease Atrial fibrillation Hypertension Assessment/Plan Dizziness and lightheadedness, received scopolamine patch, feeling better. Dry cough, started yesterday, persistent. No fever. I will add bronchodilators and evaluate chest x-ray Generalized weakness, unsteady gait, started on physical therapy. Coronary artery disease, History of multiple interventions in the past, had a total of 3 stents. Underwent cardiac catheterization on November 15, 2018 revealing moderate stenosis at the ostium of the right coronary artery, heavily calcified. 2 stents in the mid right coronary artery are patent with small vessel disease distally. Calcified left main coronary artery is moderate stenosis, nonobstructive dise ase. Patent stents in the mid circumflex complex artery with no obstructive disease, mild disease in LAD. Repeat cardiac catheterization was done on June 29, 2019 at balloon angioplasty to the mid right coronary artery and stenting of the ostium of the right coronary artery using Maryann 3 x 15 mm expanded to 3.25 mm with excellent results. Still have moderate stenosis at the mid left main, mid LAD and mid circumflex artery, small vessel disease. Cardiac catheterization on January 08, 2021 showing mild disease in the left system, severe stenosis at the ostium of the right coronary artery and severe in-stent restenosis in the mid right coronary artery status post multiple balloon angioplasty to the mid right coronary artery with excellent results. Multiple balloon angioplasty using a noncompliant balloon and cutting balloon to the ostium of the right coronary artery then deployment of Maryann 3 x 50 mm expanded to 3.2 mm with excellent results. Currently clinically stable. Maintained on aspirin, Plavix and Xarelto as an outpatient. continue on aspirin and Xarelto, Plavix was stopped on this admission Permanent atrial fibrillation, rate is controlled. Clinically stable. Tolerating current medication well. Continue to monitor [id number] score 5, maintained on Xarelto Echocardiogram done in August 2020 showing normal LV size with EF 55-65%, Aortic sclerosis without stenosis, PA 45-50mmHg. 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 Continue to monitor Peripheral edema, improved. Hypertension, controlled, continue to monitor Hyperlipidemia, controlled, continue to monitor Carotid artery stenosis, mild bilateral nonobstructive disease per carotid duplex done August 2020. GEOFF THOMSON MD Jan 06, 2022 08:12
[2022-01-06] MEDS ORDERED: RT-ALBUTEROL HFA 8.5 GM INHALER IH PRN (08:15)
[2022-01-06] MEDS: ASPIRIN E.C. 81 MG (ECOTRIN) TAB PO SCH (08:36)
[2022-01-06] MEDS: BENZONATATE 100 MG (TESSALON) CAPSULE PO SCH ×3 (08:36→20:24)
[2022-01-06] MEDS: meTOproloL SUCCINATE 50 MG (TOPROL XL) TAB PO SCH (08:36)
[2022-01-06] MEDS: OMEGA 3 (FISH OIL) 1000 MG CAP PO SCH ×3 (08:36→20:24)
[2022-01-06] MEDS: DOCUSATE SODIUM 100 MG (COLACE) CAP PO SCH ×2 (08:36→20:24)
[2022-01-06] MEDS: polyethylene glycoL POWDER 17 GM (MIRALAX) PACK PO SCH ×2 (08:36→19:54)
[2022-01-06] MEDS: CLOPIDOGREL 75 MG (PLAVIX) TABLET PO SCH (08:36)
[2022-01-06] MEDS: SENNA W/DOCUSATE (SENOKOT S) TABLET PO SCH ×2 (08:36→20:24)
[2022-01-06] MEDS: FUROSEMIDE 40 MG (LASIX) TAB PO SCH (08:37)
[2022-01-06] MEDS: KCL 20 MEQ TAB (K-DUR) PO SCH (08:37)
[2022-01-06] MEDS: MAGNESIUM OXIDE (MAG-OX)400 MG TAB PO SCH (08:37)
[2022-01-06] MEDS: PANTOPRAZOLE 40 MG (PROTONIX) TAB PO SCH (08:37)
[2022-01-06] MEDS: MICONAZOLE 2% POWDER (DESENEX AF) 90 GM TOP SCH ×2 (08:40→21:10)
--- NOTE | 2022-01-06 08:41 | Occupational Ther Daily Note ---
OT Current Status-Daily Note Subjective Pt alert, sitting in recliner. Pt agrees to therapy. No c/o pain. Mental Status/Objective Patient Orientation: Person, Place, Time, Situation ADL-Treatment Independent for eating. Pt declines shower. Pt ambulates using FWW to bathroom independently. Independent for toileting and toilet transfers. Independent for grooming and oral care. Therapy Code Descriptions/Definitions Functional Power Measure: 0=Not Assessed/NA 4=Minimal Assistance 1=Total Assistance 5=Supervision or Setup 2=Maximal Assistance 6=Modified Power 3=Moderate Assistance 7=Complete IndependenceSCALE: Activities may be completed with or without assistive devices. 6-Hmkacbjupd-mllmwav completes the activity by him/herself with no assistance from a helper. 5-Set-up or Clean-up Assistance-helper sets up or cleans up; patient completes activity. [place] assists only prior to or following the activity. 4-Supervision or Touching Assistance-helper provides verbal cues and/or touching/steadying and/or contact guard assistance as patient completes activit y. Assistance may be provided throughout the activity or intermittently. 3-Partial/Moderate Assistance-helper does LESS THAN HALF the effort. [place] lifts, holds or supports trunk or limbs, but provides less than half the effort. 2-Substantial/Maximal Assistance-helper does MORE THAN HALF the effort. [place] lifts or holds trunk or limbs and provides more than half the effort. 0-Sljbidxdq-bbgnxt does ALL the effort. Patient does none of the effort to complete the activity. Or, the assistance of 2 or more helpers is required for the patient to complete the activity. If activity was not attempted, code reason: 7-Patient Refused. 9-Not Applicable-not attempted and the patient did not perform the activity before the current illness, exacerbation or injury. 10-Not Attempted due to Environmental Limitations-(lack of equipment, weather restraints, etc.). 88-Not Attempted due to Medical Conditions or Safety Concerns. Eating (QC): 6 Oral Hygiene (QC): 6 Toileting Hygiene (QC): 6 Toilet Transfer (QC): 6 Other Treatment Pt ambulates around 2nd floor using FWW independently with 1 recovery break. Pt completes B UE exercises to increase strength, coordination and activity tolerance for daily functional tasks. Arm bike completed in standing for 6 min at 20 coreas resistance, 4 min in sitting at 20 coreas resistance. Physicians rounding on pt and required pt to take a break from exercising 2x's. Resistive clothespins completed with each hand. Arm pulleys completed for 3 min with 1 break to increase AROM and activity tolerance. Pt's L shldr AROM is increasing with no pain. After session, pt sitting in recliner with call light/phone in reach. All needs met in room. OT Short Term Goals Short Term Goals Time Frame: Jan 07, 2022 Eatin Oral hygiene: 6 Toileting hygiene: 6 Shower/bathe self: 5 Upper body dressin Lower body dressin Putting on/taking off footwear: 5 OT Instrument And Control Service Person Goals Correction Goals Time Frame: Jan 12, 2022 Eating (QC): 6 (met) Oral Hygiene (QC): 6 (met) Toileting Hygiene (QC): 6 (met) Shower/Bathe Self (QC): 6 (met) Upper Body Dressing (QC): 6 (met) Lower Body Dressing (QC): 6 (met) On/Off Footwear (QC): 6 (met) 1=Demonstrate adherence to instructed precautions during ADL tasks. 2=Patient will verbalize/demonstrate understanding of assistive d evices/modifications for ADL. 3=Patient will improve strength/tolerance for activity to enable patient to perform ADL's. OT Education/Plan Problem List/Assessment Assessment: Decreased Activ Tolerance, Decreased UE Strength Discharge Recommendations Plan/Recommendations: Continue POC Treatment Plan/Plan of Care Patient would benefit from OT for education, treatment and training to promote independence in ADL's, mobility, safety and/or upper extremity function for ADL's. Plan of Care: ADL Retraining, Cognitive Retraining, Functional Mobility, Group Exercise/Act as Ind, UE Funct Exercise/Act Treatment Duration: Jan 12, 2022 Frequency: At least 5 of 7 days/Wk (IRF) Estimated Hrs Per Day: 1.5 hours per day (75-90 min/day) Agreement: Yes Rehab Potential: Fair Time/GCodes Start Time: 07:15 Stop Time: 08:45 Total Time Billed (hr/min): 90 Billed Treatment Time 1 visit-ADL 3 (40 min) EX 2 (30 min) FA 1 (20 min) NIGHAT MAYORGA Jan 06, 2022 08:41
--- NOTE | 2022-01-06 10:12 | Physical Therapy Daily Note ---
PT Daily Note-Current Subjective Pt sitting in recliner upon arrival. Pt agrees to PT. Pain Location: No Pain Reported Mental Status Patient Orientation: Person, Place, Time, Situation Transfers SCALE: Activities may be completed with or without assistive devices. 0-Dzcwmrluvd-oolwgxk completes the activity by him/herself with no assistance from a helper. 5-Set-up or Clean-up Assistance-helper sets up or cleans up; patient completes activity. [place] assists only prior to or following the activity. 4-Supervision or Touching Assistance-helper provides verbal cues and/or touching/steadying and/or contact guard assistance as patient completes activity. Assistance may be provided throughout the activity or intermittently. 3-Partial/Moderate Assistance-helper does LESS THAN HALF the effort. [place] lifts, holds or supports trunk or limbs, but provides less than half the effort. 2-Substantial/Maximal Assistance-helper does MORE THAN HALF the effort. [place] lifts or holds trunk or limbs and provides more than half the effort. 7-Irqmmbvjd-kfkjqm does ALL the effort. Patient does none of the effort to complete the activity. Or, the assistance of 2 or more helpers is required for the patient to complete the activity. If activity was not attempted, code reason: 7-Patient Refused. 9-Not Applicable-not attempted and the patient did not perform the activity bef ore the current illness, exacerbation or injury. 10-Not Attempted due to Environmental Limitations-(lack of equipment, weather r estraints, etc.). 88-Not Attempted due to Medical Conditions or Safety Concerns. Sit to Stand (QC): 6 Weight Bearing Full Weight Bearing Full Weight Bearing Gait Training Does the Patient Walk?: Yes Distance: 500' Walk 10 feet (QC): 6 Walk 50 ft with 2 Turns(QC): 6 Walk 150 ft (QC): 6 Gait Assistive Device: FWW Wheelchair Training Does the Pt Use a Wheelchair?: No Exercises Standing: Hamstring curls, Heel/toe raises, 3 way Ex=Flex, Abd, Ext, Marching, Mini squats Standing Reps: 15 NuStep Minutes: 10 NuStep Workload: 4 Treatments TF to standing, declines need for BR. Pt amb. in hallway, taking RB as needed. Pt uses NuStep and completes Standing EX at //bars w/RB as needed. Pt returns to room to rest after using BR at end of tx. All needs met, call light in hand. Assessment Current Status: Good Progress Pt is capable of tasks given but needs RB at times to recover. PT Short Term Goals Short Term Goals Time Frame: Jan 09, 2022 Roll Left & Right: 6 Sit to lyin Lying to sitting on side of be: 6 Sit to stand: 4 (SBA) Chair/xvc-fl-bmxow transfer: 4 (SBA) Walk 10 feet: 4 (SBA) Walk 50 feet with two turns: 4 (SBA) Walk 150 feet: 4 (SBA) PT Prison Goals Prison Goals PT Branch Officer Goals Time Frame: Jan 23, 2022 Roll Left & Right (QC): 6 Sit to Lying (QC): 6 Lying-Sitting on Side/Bed(QC): 6 Sit to Stand (QC): 6 Chair/Uvd-bi-Kxnci Xfer(QC): 6 Toilet Transfer (QC): 6 Car Transfer (QC): 6 Does the Patient Walk: Yes Walk 10 feet (QC): 6 Walk 50ft with 2 Turns (QC): 6 Walk 150 ft (QC): 6 Walking 10ft on Uneven Surface: 6 1 Step (curb) (QC): 4 (SBA) 4 Steps (QC): 4 (SBA) 12 Steps (QC): 88 Picking up an Object (QC): 6 Wheel 50 feet with 2 turns (QC: 9 Wheel 150 feet: 9 PT Plan Problem List Problem List: Activity Tolerance Treatment/Plan Treatment Plan: Continue Plan of Care Treatment Plan: Education, Functional Activity Abdiel, Functional Strength, Gait, Safety, Therapeutic Exercise, Transfers Treatment Duration: Jan 23, 2022 Frequency: At least 5 of 7 days/Wk (IRF) Estimated Hrs Per Day: 1.5 hours per day Patient and/or Family Agrees t: Yes Time/GCodes Time In: 900 Time Out: 1000 Total Billed Treatment Time: 60 Total Billed Treatment 1, GT (20m), EX x2 (25m) & FA (15m) NIKO HOFFMAN [employer] TE[employer] AND INSPECTOR Jan 06, 2022 10:12
[2022-01-06] MEDS: LORATADINE (CLARITIN) 10 MG TAB PO SCH (11:06)
[2022-01-06] MEDS: MONTELUKAST 10 MG (SINGULAIR) TAB PO SCH (11:06)
--- NOTE | 2022-01-06 12:20 | Progress Note ---
EDDIE ARRINGTON 01/06/22 1220: Progress Note CC: Vertigo with nausea and vomiting HPI: 86 yr old F with history of CAD, Atrial fibrillation, CHF, HTN, hyperlipidemia, CRISTEL, and hypothyroidism presented 01/01/2022 to ER with dizziness, weakness and vomiting. Scopolamine patch was initiated which provided relief of vertigo and nausea. Pt was admitted to rehab to work on strength and has continued to progress with exercises 180min/day 5x/week. Pt notes persistent cough that awakens her during sleep. Bowel movements and appetite have increased in past 24 hours. Discharge set for 01/09/2022. PMH * CHF * Stage 3 CKD * Paroxysmal A fibb. * Hypothyroidism * Obesity * Vertigo * CRISTEL * HTN PSH: * Stent x 3 NSTEMI All: * Penicillins * amiodarone * propoxyphene Meds: * Claritin 10mg PO daily * Singulair 10 mg PO daily @ 0800 * Bisacodyl 10mg 1x CT * Benzonatate 200mg PO TID * diltiazem 360 mg PO daily * Prontix 40mg Po daily * Potassium chloride 20 meq PO daily * Fish Oil 1000mg PO TID * metoprolol 50 mg PO daily * Levothyroxine 25 mcg PO daily @ 0700 * Lasix 40 mg PO daily * Plavix 75 mg PO daily * Atorvastatin 40 mg PO daily * aspirin 81 mg PO daily * Magnessium oxide 400mg PO daily @ 0800 * Sucralfate 1gm ACHS PO * Senna 1 tab PO BID * Mirilax 17gm PO BID * docusate sodium 100mg PO BID * Scopolamine patch 1mg/72hrs SH: single, retired, former smoker FH: familial genitourinary disorder (CKD) ROS: pt denies loss of appetite, dizziness, abdominal pain pt confirms minimal constipation, mild generalized weakness, SOB, persistent cough PE Vitals: T 36.6 , BP 137/78, P 75, RR 18 General: Pt appeared upbeat and in usual health. Cardio: HRRR, no murmurs, normal S1 and S2 Pulm: Diffuse moderate crackles in all lung elizalde B/L with persistent cough. GI: improved bowel movements (3x post suppository) Labs: CMP (01/05/2022) BUN 28, Cr 1.50, Glucose 106 X-Ray CHEST PA/LAT (2 VIEW) Findings: Air trapping and COPD chronic. No failure, effusion or pneumothorax. Impression: No acute-appearing abnormality. A/P 1) Weakness * Continue PT/OT exercises * Set up outpatient PT to continue strength upon discharge 2) Dizziness * Continue/replace scopolamine 1mg patch PRN * Continue exercises with PT/OT to develop plans to stabilize during vertigo spills 3)Stage 3 CKD * Continue Lasix and HTN medications * Consult dietitian on weight loss program and diet control * Follow up [facility] in 6 months to access electrolytes and GFR 4) HTN * Continue current HTN medication regimen * At home daily BP readings * Consult dietitian about at home dietary restrictions 5) Hypothyroidism * obtain TSH, free T3 and T4 levels * continue levothyroxine 25mcg daily and monitor TSH, T3,T4 6) Cough * Continue albuterol, claritin, and singulair as needed * CBC to access for new infection * Consider LAMA and steroids if cough persists for COPD 7) CAD * continue anti-coagulation regimen JAZMÍN CLAIRE DO 01/06/222051: Supervisory-Addendum Brief Verification & Attestation Participated in pt care: history, MDM, physical Personally performed: exam, history, MDM, supervision of care Care discussed with: Medical Student Procedures: n/a Results interpretation: Verified all documentation Verification and Attestation of Medical Student E/M Service A medical student performed and documented this service in my presence. I reviewed and verified all information documented by the medical student and made modifications to such information, when appropriate. I personally performed the physical exam and medical decision making. Jazmín Claire, Jan 06, 2022,20:52 EDDIE ARRINGTON Jan 06, 2022 12:20 JAZMÍN CLAIRE DO Jan 06, 2022 20:52
--- NOTE | 2022-01-06 12:54 | Diagnostic Imaging Report ---
Indication: Cough Compared: 01/04/2022. Findings: Air trapping and COPD chronic. No failure, effusion or pneumothorax. Impression: No acute-appearing abnormality. Dictated by: Dictated on workstation # [id number]
--- NOTE | 2022-01-06 15:40 | Physical Therapy Daily Note ---
PT Daily Note-Current Subjective Pt asleep Supine in bed upon arrival. Pt agrees to PT, asking to use BR before walking. Pain Location: No Pain Reported Mental Status Patient Orientation: Person, Place, Time, Situation Transfers SCALE: Activities may be completed with or without assistive devices. 4-Zplufxqtbf-nzmicwd completes the activity by him/herself with no assistance from a helper. 5-Set-up or Clean-up Assistance-helper sets up or cleans up; patient completes activity. [place] assists only prior to or following the activity. 4-Supervision or Touching Assistance-helper provides verbal cues and/or francheska elvis/steadying and/or contact guard assistance as patient completes activity. Assistance may be provided throughout the activity or intermittently. 3-Partial/Moderate Assistance-helper does LESS THAN HALF the effort. [place] lifts, holds or supports trunk or limbs, but provides less than half the effort. 2-Substantial/Maximal Assistance-helper does MORE THAN HALF the effort. [place] lifts or holds trunk or limbs and provides more than half the effort. 0-Jimgtozii-ypieqh does ALL the effort. Patient does none of the effort to complete the activity. Or, the assistance of 2 or more helpers is required for the patient to complete the activity. If activity was not attempted, code reason: 7-Patient Refused. 9-Not Applicable-not attempted and the patient did not perform the activity before the current illness, exacerbation or injury. 10-Not Attempted due to Environmental Limitations-(lack of equipment, weather restraints, etc.). 88-Not Attempted due to Medical Conditions or Safety Concerns. Lying to Sitting/Side of Bed(Q: 6 Sit to Stand (QC): 6 Toilet Transfer (QC): 6 Weight Bearing Full Weight Bearing Full Weight Bearing Gait Training Does the Patient Walk?: Yes Distance: 500' Walk 10 feet (QC): 6 Walk 50 ft with 2 Turns(QC): 6 Walk 150 ft (QC): 6 Gait Assistive Device: FWW Stair Training Stair Training: Handrails/: 2 handrails #of Steps: 2 1 Step (curb) (QC): 5 Stairs: Pattern: Step to Treatments TF to EOB then standing, amb. to BR. Pt amb. in hallway, completing 2 steps before returning to room to rest. Pt returns to recliner to rest. All needs met, call light in hand. Assessment Current Status: Good Progress Pt takes RB as needed for fatigue but able to complete tasks given w/o assistance. PT Short Term Goals Short Term Goals Time Frame: Jan 09, 2022 Roll Left & Right: 6 Sit to lyin Lying to sitting on side of be: 6 Sit to stand: 4 (SBA) Chair/hty-yk-xdnxt transfer: 4 (SBA) Walk 10 feet: 4 (SBA) Walk 50 feet with two turns: 4 (SBA) Walk 150 feet: 4 (SBA) PT Chcf Goals Travel Med Surg Rn Goals PT Travel Med Surg Rn Goals Time Frame: Jan 23, 2022 Roll Left & Right (QC): 6 Sit to Lying (QC): 6 Lying-Sitting on Side/Bed(QC): 6 Sit to Stand (QC): 6 Chair/Gxi-od-Jwbmu Xfer(QC): 6 Toilet Transfer (QC): 6 Car Transfer (QC): 6 Does the Patient Walk: Yes Walk 10 feet (QC): 6 Walk 50ft with 2 Turns (QC): 6 Walk 150 ft (QC): 6 Walking 10ft on Uneven Surface: 6 1 Step (curb) (QC): 4 (SBA) 4 Steps (QC): 4 (SBA) 12 Steps (QC): 88 Picking up an Object (QC): 6 Wheel 50 feet with 2 turns (QC: 9 Wheel 150 feet: 9 PT Plan Problem List Problem List: Activity Tolerance Treatment/Plan Treatment Plan: Continue Plan of Care Treatment Plan: Education, Functional Activity [place], Functional Strength, Gait, Safety, Therapeutic Exercise, Transfers Treatment Duration: Jan 23, 2022 Frequency: At least 5 of 7 days/Wk (IRF) Estimated Hrs Per Day: 1.5 hours per day Patient and/or Family Agrees t: Yes Safety Risks/Education Patient Education: Steps, Correct Positioning Teaching Recipient: Patient Teaching Methods: Discussion Response to Teaching: Verbalize Understanding Time/GCodes Time In: 1330 Time Out: 1400 Total Billed Treatment Time: 30 Total Billed Treatment 1, FA (10m) & GT (20m) NIKO HOFFMAN QA MANAGER Jan 06, 2022 15:40
[2022-01-06] MEDS: RIVAROXABAN 15 MG TABLET (XARELTO) PO SCH (17:10)
[2022-01-06] MEDS: ACETAMINOPHEN 325 MG TABLET PO PRN (19:10)
[2022-01-06 20:00] VITALS: BP 129/72
--- NOTE | 2022-01-06 20:37 | PM&R Progress Note ---
Subjective HPI/CC On Admission Date Seen by Provider: Jan 06, 2022 Time Seen by Provider: 10:00 Subjective/Events-last exam 01/06/2022: Doing well Cough is present CXR ordered by Dr Reyez Patient reports she tends to have a lengthy cough after an illness COVID swab was negative 01/05/2022: Patient doing well No vertigo Discharge planned on Wednesday No falls Cough is improved 01/04/2022: Doing well Vertigo nearly gone Cough improved No other concerns 01/03/2022: Doing much better Vertigo is almost resolved Scopolamine patch will be maintained Cough is new so we will check chest x-ray and give cough syrup 01/02/2022: Patient doing well Much better today Slept well last night which is unusual for her Checked meds and labs Creatinine noted Scopolamine patch seems to be helpful Review of Systems General: Fatigue, Malaise Objective Exam Vital Signs Vital Signs Date Time Temp Pulse Resp B/P (MAP) Pulse Ox O2 Delivery O2 Flow Rate FiO2 01/06/22 08:48 Room Air 01/06/22 07:34 36.6 75 18 137/78 (97) 97 01/05/22 07:31 0.00 Capillary Refill : General Appearance: No Apparent Distress, WD/WN, Chronically ill, Obese HEENT: PERRL/EOMI, Normal ENT Inspection, Pharynx Normal Neck: Full Range of Motion, Normal Inspection, Non Tender, Supple, Carotid Bruit Respiratory: Chest Non Tender, Lungs Clear, Normal Breath Sounds, No Accessory Muscle Use, No Respiratory Distress Cardiovascular: Regular Rate, Rhythm, No Edema, No Gallop, No JVD, No Murmur, Normal Peripheral Pulses Gastrointestinal: Normal Bowel Sounds, No Organomegaly, No Pulsatile Mass, Non Tender, Soft Back: Normal Inspection, No CVA Tenderness, No Vertebral Tenderness Extremity: Normal Capillary Refill, Normal Inspection, Normal Range of Motion, Non Tender, No Calf Tenderness, No Pedal Edema Neurologic/Psychiatric: Alert, Oriented x3, No Motor/Sensory Deficits, corporate law assistant II- XII Norm as Tested, Abnormal Gait, Depressed Affect, Motor Weakness (Generalized) Skin: Normal Color, Warm/Dry Lymphatic: No Adenopathy Results/Procedures Lab Patient resulted labs reviewed. FIM Transfers Therapy Code Descriptions/Definitions Functional [place] Measure: 0=Not Assessed/NA 4=Minimal Assistance 1=Total Assistance 5=Supervision or Setup 2=Maximal Assistance 6=Modified [place] 3=Moderate Assistance 7=Complete IndependenceSCALE: Activities may be completed with or without assistive devices. 9-Scnvphauln-wqutifh completes the activity by him/herself with no assistance from a helper. 5-Set-up or Clean-up Assistance-helper sets up or cleans up; patient completes activity. [place] assists only prior to or following the activity. 4-Supervision or Touching Assistance-helper provides verbal cues and/or touching/steadying and/or contact guard assistance as patient completes activity. Assistance may be provided throughout the activity or intermittently. 3-Partial/Moderate Assistance-helper does LESS THAN HALF the effort. [place] lifts, holds or supports trunk or limbs, but provides less than half the effort. 2-Substantial/Maximal Assistance-helper does MORE THAN HALF the effort. [place] lifts or holds trunk or limbs and provides more than half the effort. 4-Lnbussyyr-hpihyn does ALL the effort. Patient does none of the effort to complete the activity. Or, the assistance of 2 or more helpers is required for the patient to complete the activity. If activity was not attempted, code reason: 7-Patient Refused. 9-Not Applicable-not attempted and the patient did not perform the activity before the current illness, exacerbation or injury. 10-Not Attempted due to Environmental Limitations-(lack of equipment, weather restraints, etc.). 88-Not Attempted due to Medical Conditions or Safety Concerns. Roll Left to Right (QC): 6 Sit to Lying (QC): 6 Sit to Stand (QC): 6 Chair/Moy-tv-Jigay Xfer(QC): 6 Car Transfer (QC): 5 Gait Training Does the Patient Walk?: Yes Distance: 500' Walk 10 feet (QC): 6 Walk 50 ft with 2 Turns(QC): 6 Walk 150 ft (QC): 6 Walking 10ft/uneven surface-QC: 6 Gait Persons Needed: 1 Gait Assistive Device: FWW Wheelchair Training Does the Pt Use a Wheelchair?: No Wheel 50 ft with 2 turns (QC): 9 Wheel 150 ft (QC): 9 Stair Training Stair Training: Handrails/: 2 handrails #of Steps: 2 1 Step (curb) (QC): 5 4 Steps (QC): 5 12 Steps (QC): 5 Stairs: Pattern: Step to Balance Picking up an Object (QC): 6 ADL-Treatment Eating (QC): 6 Oral Hygiene (QC): 6 Shower/Bathe Self (QC): 6 Upper Body Dressing (QC): 6 Lower Body Dressing (QC): 6 On/Off Footwear (QC): 6 Toileting Hygiene (QC): 6 Toilet Transfer (QC): 6 Assessment/Plan Assessment and Plan Assess & Plan/Chief Complaint Assessment: (1) Coronary artery disease with unstable angina pectoris (2) Permanent atrial fibrillation (3) CKD (chronic kidney disease) (4) Obstructive sleep apnea (adult) (pediatric) (5) Mixed hyperlipidemia (6) Essential hypertension (7) Obesity (8) Hypothyroidism (9) Cough Plan: Supportive care Gentle IV fluids Meclizine Valium Scopolamine patch 01/02/2022: Continue IV fluids Scopolamine patch 01/03/2022: Check chest x-ray Antitussives 01/04/2022: Monitor cough and vertigo 01/05/2022: Supportive care Discharge Wednesday01/06/2022: Singulair CXR cough (1) Dizziness Status: Acute (2) Generalized weakness Status: Acute (3) Chronic CHF Status: Acute (4) Chronic renal insufficiency Status: Acute (5) Vertigo (6) Obesity Status: Chronic (7) Mixed hyperlipidemia Status: Chronic (8) Essential hypertension Status: Chronic (9) Coronary artery disease with unstable angina pectoris Status: Acute (10) Permanent atrial fibrillation Status: Chronic (11) CKD (chronic kidney disease) Status: Chronic (12) Obstructive sleep apnea (adult) (pediatric) Status: Chronic (13) Hypothyroidism Status: Chronic (14) Pulmonary hypertension ALICIA GASCA DO Jan 06, 2022 20:37
[2022-01-07] MEDS ORDERED: MICO90PO TOP (06:01)
[2022-01-07] MEDS ORDERED: ALBU8.5H9 IH (06:01)
[2022-01-07] MEDS ORDERED: MONT-40 PO (06:01)
[2022-01-07] MEDS ORDERED: BENZ100C18 PO (06:01)
[2022-01-07] MEDS ORDERED: GFCD10B PO (06:01)
--- NOTE | 2022-01-07 06:05 | PM&R Progress Note ---
Subjective HPI/CC On Admission Date Seen by Provider: Jan 07, 2022 Time Seen by Provider: 09:00 Subjective/Events-last exam 01/07/2022: Doing well No pain reported Ready for DC Wednesday Cough is improved 01/06/2022: Doing well Cough is present CXR ordered by Dr Reyez Patient reports she tends to have a lengthy cough after an illness COVID swab was negative 01/05/2022: Patient doing well No vertigo Discharge planned on Wednesday No falls Cough is improved 01/04/2022: Doing well Vertigo nearly gone Cough improved No other concerns 01/03/2022: Doing much better Vertigo is almost resolved Scopolamine patch will be maintained Cough is new so we will check chest x-ray and give cough syrup 01/02/2022: Patient doing well Much better today Slept well last night which is unusual for her Checked meds and labs Creatinine noted Scopolamine patch seems to be helpful Review of Systems General: Fatigue, Malaise Objective Exam Vital Signs Vital Signs Date Time Temp Pulse Resp B/P (MAP) Pulse Ox O2 Delivery O2 Flow Rate FiO2 01/07/22 08:53 Room Air 01/07/22 07:38 36.4 80 18 129/71 (90) 96 01/05/22 07:31 0.00 Capillary Refill : General Appearance: No Apparent Distress, WD/WN, Chronically ill, Obese HEENT: PERRL/EOMI, Normal ENT Inspection, Pharynx Normal Neck: Full Range of Motion, Normal Inspection, Non Tender, Supple, Carotid Bruit Respiratory: Chest Non Tender, Lungs Clear, Normal Breath Sounds, No Accessory Muscle Use, No Respiratory Distress Cardiovascular: Regular Rate, Rhythm, No Edema, No Gallop, No JVD, No Murmur, Normal Peripheral Pulses Gastrointestinal: Normal Bowel Sounds, No Organomegaly, No Pulsatile Mass, Non Tender, Soft Back: Normal Inspection, No CVA Tenderness, No Vertebral Tenderness Extremity: Normal Capillary Refill, Normal Inspection, Normal Range of Motion, Non Tender, No Calf Tenderness, No Pedal Edema Neurologic/Psychiatric: Alert, Oriented x3, No Motor/Sensory Deficits, tiller 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 FIM Transfers Therapy Code Descriptions/Definitions Functional [place] Measure: 0=Not Assessed/NA 4=Minimal Assistance 1=Total Assistance 5=Supervision or Setup 2=Maximal Assistance 6=Modified [place] 3=Moderate Assistance 7=Complete IndependenceSCALE: Activities may be completed with or without assistive devices. 5-Abtkqsdclu-qhinbxj completes the activity by him/herself with no assistance from a helper. 5-Set-up or Clean-up Assistance-helper sets up or cleans up; patient completes activity. [place] assists only prior to or following the activity. 4-Supervision or Touching Assistance-helper provides verbal cues and/or touching/steadying and/or contact guard assistance as patient completes activity. Assistance may be provided throughout the activity or intermittently. 3-Partial/Moderate Assistance-helper does LESS THAN HALF the effort. [place] lifts, holds or supports trunk or limbs, but provides less than half the effort. 2-Substantial/Maximal Assistance-helper does MORE THAN HALF the effort. [place] lifts or holds trunk or limbs and provides more than half the effort. 2-Gqiynldar-qpmknp does ALL the effort. Patient does none of the effort to complete the activity. Or, the assistance of 2 or more helpers is required for the patient to complete the activity. If activity was not attempted, code reason: 7-Patient Refused. 9-Not Applicable-not attempted and the patient did not perform the activity before the current illness, exacerbation or injury. 10-Not Attempted due to Environmental Limitations-(lack of equipment, weather restraints, etc.). 88-Not Attempted due to Medical Conditions or Safety Concerns. Roll Left to Right (QC): 6 Sit to Lying (QC): 6 Sit to Stand (QC): 6 Chair/Sxf-xm-Vkmiv Xfer(QC): 6 Car Transfer (QC): 5 Gait Training Does the Patient Walk?: Yes Distance: 500' Walk 10 feet (QC): 6 Walk 50 ft with 2 Turns(QC): 6 Walk 150 ft (QC): 6 Walking 10ft/uneven surface-QC: 6 Gait Persons Needed: 1 Gait Assistive Device: FWW Wheelchair Training Does the Pt Use a Wheelchair?: No Wheel 50 ft with 2 turns (QC): 9 Wheel 150 ft (QC): 9 Stair Training Stair Training: Handrails/: 2 handrails #of Steps: 2 1 Step (curb) (QC): 5 4 Steps (QC): 5 12 Steps (QC): 5 Stairs: Pattern: Step to Balance Picking up an Object (QC): 6 ADL-Treatment Eating (QC): 6 Oral Hygiene (QC): 6 Shower/Bathe Self (QC): 6 Upper Body Dressing (QC): 6 Lower Body Dressing (QC): 6 On/Off Footwear (QC): 6 Toileting Hygiene (QC): 6 Toilet Transfer (QC): 6 Assessment/Plan Assessment and Plan Assess & Plan/Chief Complaint Assessment: (1) Coronary artery disease with unstable angina pectoris (2) Permanent atrial fibrillation (3) CKD (chronic kidney disease) (4) Obstructive sleep apnea (adult) (pediatric) (5) Mixed hyperlipidemia (6) Essential hypertension (7) Obesity (8) Hypothyroidism (9) Cough Plan: Supportive care Gentle IV fluids Meclizine Valium Scopolamine patch 01/02/2022: Continue IV fluids Scopolamine patch 01/03/2022: Check chest x-ray Antitussives 01/04/2022: Monitor cough and vertigo 01/05/2022: Supportive care Discharge Wednesday01/06/2022: Singulair CXR cough 01/07/2022: Cough management (1) Dizziness Status: Acute (2) Generalized weakness Status: Acute (3) Chronic CHF Status: Acute (4) Chronic renal insufficiency Status: Acute (5) Vertigo (6) Obesity Status: Chronic (7) Mixed hyperlipidemia Status: Chronic (8) Essential hypertension Status: Chronic (9) Coronary artery disease with unstable angina pectoris Status: Acute (10) Permanent atrial fibrillation Status: Chronic (11) CKD (chronic kidney disease) Status: Chronic (12) Obstructive sleep apnea (adult) (pediatric) Status: Chronic (13) Hypothyroidism Status: Chronic (14) Pulmonary hypertension ALICIA GASCA DO Jan 07, 2022 06:05
[2022-01-07] MEDS: LEVOTHYROXINE 25 MCG (LEVOTHROID) TAB PO SCH (06:27)
[2022-01-07] MEDS: SUCRALFATE 1 GM (CARAFATE) TAB PO SCH ×4 (06:28→20:15)
[2022-01-07 07:38] VITALS: BP 129/71
--- NOTE | 2022-01-07 08:02 | Cardiology Progress Note ---
Subjective Date Seen by Provider: Jan 07, 2022 Time Seen by Provider: 08:00 Subjective/Events-last exam Patient was seen at bedside, feeling better. No new complaint. Does not have cough today. Review of Systems General: No Chills, No Night Sweats, No Fatigue, No Malaise, No Appetite, No Other HEENT: No Head Aches, No Visual Changes, No Eye Pain, No Ear Pain, No Dysphasia, No Sinus Congestion, No Post Nasal Drip, No Sore Throat, No Other Pulmonary: No Dyspnea, No Cough, No Pleuritic Chest Pain, No Other Cardiovascular: No: Chest Pain, Palpitations, Orthopnea, Paroxysmal Noc. Dyspnea, Edema, Lt Headedness, Other Objective-Cardiology Exam Last Set of Vital Signs Vital Signs 01/05/22 01/07/22 07:31 07:38 Temp 36.4 Pulse 80 Resp 18 B/P (MAP) 129/71 (90) Pulse Ox 96 O2 Delivery Room Air O2 Flow Rate 0.00 General: Alert, Oriented X3, Cooperative HEENT: Atraumatic, PERRLA Neck: Supple, No JVD, No Thyromegaly Lungs: Clear to Auscultation, Normal Air Movement Heart: Regular Rate, Normal S1, Normal S2, No Murmurs Abdomen: Normal Bowel Sounds, Soft, No Tenderness, No Hepatosplenomegaly, No Masses Extremities: No Clubbing, No Cyanosis, No Edema, Normal Pulses, No Tenderness/Swelling Skin: No Rashes, No Breakdown, No Significant Lesion Neuro: Normal Gait, Normal Speech, Strength at 5/5 X4 Ext, Normal Tone, Sensation Intact Psych/Mental Status: Mental Status NL, Mood NL A/P-Cardiology Admission Diagnosis Dizziness Coronary artery disease Atrial fibrillation Hypertension Assessment/Plan Dizziness and lightheadedness, received scopolamine patch, feeling better. Dry cough, started yesterday, persistent. No fever. Chest x-ray was done on January 06, 2022 showing no significant abnormality Started on Proventil, did not receive any dose. Generalized weakness, unsteady gait, started on physical therapy. Coronary artery disease, History of multiple interventions in the past, had a total of 3 stents. Underwent cardiac catheterization on November 15, 2018 revealing moderate stenosis at the ostium of the right coronary artery, heavily calcified. 2 stents in the mid right coronary artery are patent with small vessel disease distally. C alcified left main coronary artery is moderate stenosis, nonobstructive disease. Patent stents in the mid circumflex complex artery with no obstructive disease, mild disease in LAD. Repeat cardiac catheterization was done on June 29, 2019 at balloon ang ioplasty to the mid right coronary artery and stenting of the ostium of the right coronary artery using Maryann 3 x 15 mm expanded to 3.25 mm with excellent results. Still have moderate stenosis at the mid left main, mid LAD and mid circumflex artery, small vessel disease. Cardiac catheterization on January 08, 2021 showing mild disease in the left system, severe stenosis at the ostium of the right coronary artery and severe in-stent restenosis in the mid right coronary artery status post multiple balloon angioplasty to the mid right coronary artery with excellent results. Multiple balloon angioplasty using a noncompliant balloon and cutting balloon to the ostium of the right coronary artery then deployment of Maryann 3 x 50 mm expanded to 3.2 mm with excellent results. Currently clinically stable. Maintained on aspirin, Plavix and Xarelto as an outpatient. continue on aspirin and Xarelto, Plavix was stopped on this admission Permanent atrial fibrillation, rate is controlled. Clinically stable. Tolerating current medication well. Continue to monitor [id number] score 5, maintained on Xarelto Echocardiogram done in August 2020 showing normal LV size with EF 55-65%, Aortic sclerosis without stenosis, PA 45-50mmHg. 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 Continue to monitor Peripheral edema, improved. Hypertension, controlled, continue to monitor Hyperlipidemia, controlled, continue to monitor Carotid artery stenosis, mild bilateral nonobstructive disease per carotid duplex done August 2020. GEOFF THOMSON MD Jan 07, 2022 08:02
[2022-01-07] MEDS: OMEGA 3 (FISH OIL) 1000 MG CAP PO SCH ×3 (08:12→20:15)
[2022-01-07] MEDS: MONTELUKAST 10 MG (SINGULAIR) TAB PO SCH (08:13)
[2022-01-07] MEDS: ASPIRIN E.C. 81 MG (ECOTRIN) TAB PO SCH (08:13)
[2022-01-07] MEDS: CLOPIDOGREL 75 MG (PLAVIX) TABLET PO SCH (08:13)
[2022-01-07] MEDS: BENZONATATE 100 MG (TESSALON) CAPSULE PO SCH ×3 (08:13→20:16)
[2022-01-07] MEDS: KCL 20 MEQ TAB (K-DUR) PO SCH (08:13)
[2022-01-07] MEDS: polyethylene glycoL POWDER 17 GM (MIRALAX) PACK PO SCH ×2 (08:14→19:18)
[2022-01-07] MEDS: DOCUSATE SODIUM 100 MG (COLACE) CAP PO SCH ×2 (08:14→21:10)
[2022-01-07] MEDS: PANTOPRAZOLE 40 MG (PROTONIX) TAB PO SCH (08:14)
[2022-01-07] MEDS: LORATADINE (CLARITIN) 10 MG TAB PO SCH (08:14)
[2022-01-07] MEDS: FUROSEMIDE 40 MG (LASIX) TAB PO SCH (08:14)
[2022-01-07] MEDS: SENNA W/DOCUSATE (SENOKOT S) TABLET PO SCH ×2 (08:14→21:10)
[2022-01-07] MEDS: meTOproloL SUCCINATE 50 MG (TOPROL XL) TAB PO SCH (08:14)
[2022-01-07] MEDS: ACETAMINOPHEN 325 MG TABLET PO PRN ×2 (08:19→17:09)
[2022-01-07] MEDS: MAGNESIUM OXIDE (MAG-OX)400 MG TAB PO SCH (08:23)
[2022-01-07] MEDS: MICONAZOLE 2% POWDER (DESENEX AF) 90 GM TOP SCH ×2 (08:23→20:17)
--- NOTE | 2022-01-07 09:02 | Physical Therapy Daily Note ---
PT Daily Note-Current Subjective Pt sitting in recliner upon arrival. Pt agrees to PT. Nurse giving morning meds to start tx and Med student checks on pt during tx. Pain Numeric Pain Scale: 4 Location Body Site: Head Pain Description: Ache Mental Status Patient Orientation: Person, Place, Time, Situation Transfers SCALE: Activities may be completed with or without assistive devices. 1-Pwxwiekyqw-tcapldg completes the activity by him/herself with no assistance from a helper. 5-Set-up or Clean-up Assistance-helper sets up or cleans up; patient completes activity. [place] assists only prior to or following the activity. 4-Supervision or Touching Assistance-helper provides verbal cues and/or touching/steadying and/or contact guard assistance as patient completes activity. Assistance may be provided throughout the activity or intermittently. 3-Partial/Moderate Assistance-helper does LESS THAN HALF the effort. [place] lifts, holds or supports trunk or limbs, but provides less than half the effort. 2-Substantial/Maximal Assistance-helper does MORE THAN HALF the effort. [place] lifts or holds trunk or limbs and provides more than half the effort. 0-Kjgjkxlcr-elhmfw does ALL the effort. Patient does none of the effort to complete the activity. Or, the assistance of 2 or more helpers is required for the patient to complete the activity. If activity was not attempted, code reason: 7-Patient Refused. 9-Not Applicable-not attempted and the patient did not perform the activity before the current illness, exacerbation or injury. 10-Not Attempted due to Environmental Limitations-(lack of equipment, weather restraints, etc.). 88-Not Attempted due to Medical Conditions or Safety Concerns. Sit to Stand (QC): 6 Weight Bearing Full Weight Bearing Full Weight Bearing Gait Training Does the Patient Walk?: Yes Distance: 500' Walk 10 feet (QC): 6 Walk 50 ft with 2 Turns(QC): 6 Walk 150 ft (QC): 6 Gait Assistive Device: FWW Exercises Standing: Hip Abduction, Hamstring curls, Heel/toe raises, Marching Standing Reps: 15 Treatments Morning Meds given by Nurse to start tx. Med Student also checks on pt. After meds, pt TF to standing and amb. to BR. After finishing, pt amb. in hallway taking a RB as needed. Pt completes Standing Ex at //bars then amb. in hallway before returning to room to rest in recliner. All needs met, call light in hand. Assessment Current Status: Good Progress Pt takes RB as needed for fatigue and balance is improved since pt is using patch for Vertigo. PT Short Term Goals Short Term Goals Time Frame: Jan 09, 2022 Roll Left & Right: 6 Sit to lyin Lying to sitting on side of be: 6 Sit to stand: 4 (SBA) Chair/sec-pt-adssg transfer: 4 (SBA) Walk 10 feet: 4 (SBA) Walk 50 feet with two turns: 4 (SBA) Walk 150 feet: 4 (SBA) PT Assisted Goals Assisted Goals PT Assisted Goals Time Frame: Jan 23, 2022 Roll Left & Right (QC): 6 Sit to Lying (QC): 6 Lying-Sitting on Side/Bed(QC): 6 Sit to Stand (QC): 6 Chair/Jpl-tq-Tubqr Xfer(QC): 6 Toilet Transfer (QC): 6 Car Transfer (QC): 6 Does the Patient Walk: Yes Walk 10 feet (QC): 6 Walk 50ft with 2 Turns (QC): 6 Walk 150 ft (QC): 6 Walking 10ft on Uneven Surface: 6 1 Step (curb) (QC): 4 (SBA) 4 Steps (QC): 4 (SBA) 12 Steps (QC): 88 Picking up an Object (QC): 6 Wheel 50 feet with 2 turns (QC: 9 Wheel 150 feet: 9 PT Plan Treatment/Plan Treatment Plan: Continue Plan of Care Treatment Plan: Education, Functional Activity [place], Functional Strength, Gait, Safety, Therapeutic Exercise, Transfers Treatment Duration: Jan 23, 2022 Frequency: At least 5 of 7 days/Wk (IRF) Estimated Hrs Per Day: 1.5 hours per day Patient and/or Family Agrees t: Yes Time/GCodes Time In: 800 Time Out: 900 Total Billed Treatment Time: 60 Total Billed Treatment 1, GT x2 (25m), FA (15m) & EX (20m) NIKO HOFFMAN VOCATIONAL REHABILITATION SUPERVISOR Jan 07, 2022 09:02
--- NOTE | 2022-01-07 12:53 | Occupational Ther Daily Note ---
OT Current Status-Daily Note Subjective Pt reported that she was looking forward to her discharge to home pending on Wednesday and was confident that she would do well at home. No pain reported. Appearance Alert, cooperative, agreeable to OT ADL-Treatment Pt reported that she planned to shower tomorrow morning. At beginning and end of treatment, she transferred on/off toilet independently and washed hands at sink independently, with no LOB. Tall toilet, grab bar, FWW. Walked safely to recliner with FWW and sat without assistance, getting ready for lunch. Call light present and all needs met. Therapy Code Descriptions/Definitions Functional [place] Measure: 0=Not Assessed/NA 4=Minimal Assistance 1=Total Assistance 5=Supervision or Setup 2=Maximal Assistance 6=Modified [place] 3=Moderate Assistance 7=Complete IndependenceSCALE: Activities may be completed with or without assistive devices. 4-Eagbpozffu-ntxgscb completes the activity by him/herself with no assistance from a helper. 5-Set-up or Clean-up Assistance-helper sets up or cleans up; patient completes activity. [place] assists only prior to or following the activity. 4-Supervision or Touching Assistance-helper provides verbal cues and/or touchin g/steadying and/or contact guard assistance as patient completes activity. Assistance may be provided throughout the activity or intermittently. 3-Partial/Moderate Assistance-helper does LESS THAN HALF the effort. [place] lifts, holds or supports trunk or limbs, but provides less than half the effort. 2-Substantial/Maximal Assistance-helper does MORE THAN HALF the effort. [place] lifts or holds trunk or limbs and provides more than half the effort. 7-Dzzvhsctp-ddnfog does ALL the effort. Patient does none of the effort to complete the activity. Or, the assistance of 2 or more helpers is required for the patient to complete the activity. If activity was not attempted, code reason: 7-Patient Refused. 9-Not Applicable-not attempted and the patient did not perform the activity before the current illness, exacerbation or injury. 10-Not Attempted due to Environmental Limitations-(lack of equipment, weather restraints, etc.). 88-Not Attempted due to Medical Conditions or Safety Concerns. Toileting Hygiene (QC): 6 Toilet Transfer (QC): 6 Other Treatment Walked safely to gym with FWW and no assistance or LOB. Able to get in/out of chair with arms with general supervision. Pt completed 6 minutes bilat UE exercise on arm bike set at 25W, with no recovery period. Completed 7 minutes bilat arm bike 25W while standing and required one brief standing recovery break. Increased time and resistance. Also completed bilat UE exercise, using nuts and bolts board, 1" pegs with 1/4" stems and graded clothespins, all with 1# weight on each arm. To strengthen arms for ADLs and to increase activity tolerance for self care. She required occasional recovery breaks throughout but was familiar with concept of pacing herself fr energy conservation. Pt walked back to room for toileting and lunch. Education OT Patient Education: Energy conservation, Exercise program, Progress toward Goal/Update tx plan, Purpose of tx/functional activities Teaching Recipient: Patient Teaching Methods: Discussion Response to Teaching: Verbalize Understanding, Return Demonstration OT Short Term Goals Short Term Goals Time Frame: Jan 07, 2022 Eatin Oral hygiene: 6 Toileting hygiene: 6 Shower/bathe self: 5 Upper body dressin Lower body dressin Putting on/taking off footwear: 5 OT Sustainability Project Manager Goals Half-Way Goals Time Frame: Jan 12, 2022 Eating (QC): 6 (met) Oral Hygiene (QC): 6 (met) Toileting Hygiene (QC): 6 (met) Shower/Bathe Self (QC): 6 (met) Upper Body Dressing (QC): 6 (met) Lower Body Dressing (QC): 6 (met) On/Off Footwear (QC): 6 (met) 1=Demonstrate adherence to instructed precautions during ADL tasks. 2=Patient will verbalize/demonstrate understanding of assistive devices/modifications for ADL. 3=Patient will improve strength/tolerance for activity to enable patient to perform ADL's. OT Education/Plan Discharge Recommendations Plan/Recommendations: Continue POC Treatment Plan/Plan of Care Patient would benefit from OT for education, treatment and training to promote independence in ADL's, mobility, safety and/or upper extremity function for ADL's. Plan of Care: ADL Retraining, Cognitive Retraining, Functional Mobility, Group Exercise/Act as Ind, UE Funct Exercise/Act Treatment Duration: Jan 12, 2022 Frequency: At least 5 of 7 days/Wk (IRF) Estimated Hrs Per Day: 1.5 hours per day (75-90 min/day) Agreement: Yes Rehab Potential: Fair Time/GCodes Start Time: 10:30 Stop Time: 12:00 Total Time Billed (hr/min): 90 Billed Treatment Time visit, 20 minutes ADL, 70 minutes exercise TIM VEGA OT Jan 07, 2022 12:53
--- NOTE | 2022-01-07 14:35 | Physical Therapy Daily Note ---
PT Daily Note-Current Subjective Pt sitting in recliner upon arrival. Pt agrees to PT. Pain Location: No Pain Reported Mental Status Patient Orientation: Person, Place, Time, Situation Transfers SCALE: Activities may be completed with or without assistive devices. 3-Kmujctqymz-rywugzw completes the activity by him/herself with no assistance from a helper. 5-Set-up or Clean-up Assistance-helper sets up or cleans up; patient completes activity. [place] assists only prior to or following the activity. 4-Supervision or Touching Assistance-helper provides verbal cues and/or touching/steadying and/or contact guard assistance as patient completes activity. Assistance may be provided throughout the activity or intermittently. 3-Partial/Moderate Assistance-helper does LESS THAN HALF the effort. [place] lifts, holds or supports trunk or limbs, but provides less than half the effort. 2-Substantial/Maximal Assistance-helper does MORE THAN HALF the effort. [place] lifts or holds trunk or limbs and provides more than half the effort. 0-Kktploqfp-yomffl does ALL the effort. Patient does none of the effort to complete the activity. Or, the assistance of 2 or more helpers is required for the patient to complete the activity. If activity was not attempted, code reason: 7-Patient Refused. 9-Not Applicable-not attempted and the patient did not perform the activity bef ore the current illness, exacerbation or injury. 10-Not Attempted due to Environmental Limitations-(lack of equipment, weather r estraints, etc.). 88-Not Attempted due to Medical Conditions or Safety Concerns. Sit to Stand (QC): 6 Toilet Transfer (QC): 6 Weight Bearing Full Weight Bearing Full Weight Bearing Gait Training Does the Patient Walk?: Yes Distance: 150' Walk 10 feet (QC): 6 Walk 50 ft with 2 Turns(QC): 6 Walk 150 ft (QC): 6 Gait Assistive Device: FWW Treatments TF to standing and amb. to BR. then in hallway. Pt returns to room to rest in recliner. All needs met, call light in hand. Assessment Current Status: Good Progress Pt lizette. tx well. PT Short Term Goals Short Term Goals Time Frame: Jan 09, 2022 Roll Left & Right: 6 Sit to lyin Lying to sitting on side of be: 6 Sit to stand: 4 (SBA) Chair/hod-mz-mywys transfer: 4 (SBA) Walk 10 feet: 4 (SBA) Walk 50 feet with two turns: 4 (SBA) Walk 150 feet: 4 (SBA) PT Care Home Goals Director [employer] Goals PT Care Home Goals Time Frame: Jan 23, 2022 Roll Left & Right (QC): 6 Sit to Lying (QC): 6 Lying-Sitting on Side/Bed(QC): 6 Sit to Stand (QC): 6 Chair/Kml-eu-Mcqpf Xfer(QC): 6 Toilet Transfer (QC): 6 Car Transfer (QC): 6 Does the Patient Walk: Yes Walk 10 feet (QC): 6 Walk 50ft with 2 Turns (QC): 6 Walk 150 ft (QC): 6 Walking 10ft on Uneven Surface: 6 1 Step (curb) (QC): 4 (SBA) 4 Steps (QC): 4 (SBA) 12 Steps (QC): 88 Picking up an Object (QC): 6 Wheel 50 feet with 2 turns (QC: 9 Wheel 150 feet: 9 PT Plan Treatment/Plan Treatment Plan: Continue Plan of Care Treatment Plan: Education, Functional Activity Abdiel, Functional Strength, Gait, Safety, Therapeutic Exercise, Transfers Treatment Duration: Jan 23, 2022 Frequency: At least 5 of 7 days/Wk (IRF) Estimated Hrs Per Day: 1.5 hours per day Patient and/or Family Agrees t: Yes Time/GCodes Time In: 1330 Time Out: 1400 Total Billed Treatment Time: 30 Total Billed Treatment 1, FA x2 (30m) NIKO HOFFMAN TRAFFIC TECHNICIAN Jan 07, 2022 14:35
[2022-01-07] MEDS ORDERED: PATIENT MAY USE OWN MED,SINGLE MED PO SCH (15:00)
[2022-01-07] MEDS: RIVAROXABAN 15 MG TABLET (XARELTO) PO SCH (16:07)
[2022-01-07 20:08] VITALS: BP 140/62
[2022-01-07] MEDS: [UNRECOGNIZED DRUG - REMARK] IH PRN (20:20)
--- NOTE | 2022-01-08 05:47 | PM&R Progress Note ---
Subjective HPI/CC On Admission Date Seen by Provider: Jan 08, 2022 Subjective/Events-last exam 01/08/2022: Doing well Cough improved DC Wednesday01/07/2022: Doing well No pain reported Ready for DC Wednesday Cough is improved 01/06/2022: Doing well Cough is present CXR ordered by Dr Reyez Patient reports she tends to have a lengthy cough after an illness COVID swab was negative 01/05/2022: Patient doing well No vertigo Discharge planned on Wednesday No falls Cough is improved 01/04/2022: Doing well Vertigo nearly gone Cough improved No other concerns 01/03/2022: Doing much better Vertigo is almost resolved Scopolamine patch will be maintained Cough is new so we will check chest x-ray and give cough syrup 01/02/2022: Patient doing well Much better today Slept well last night which is unusual for her Checked meds and labs Creatinine noted Scopolamine patch seems to be helpful Review of Systems General: Fatigue, Malaise Objective Exam Vital Signs Vital Signs Date Time Temp Pulse Resp B/P (MAP) Pulse Ox O2 Delivery O2 Flow Rate FiO2 01/08/22 09:00 Room Air 01/08/22 08:29 97 0.00 01/08/22 07:51 36.9 80 18 133/85 (101) Capillary Refill : General Appearance: No Apparent Distress, WD/WN, Chronically ill, Obese HEENT: PERRL/EOMI, Normal ENT Inspection, Pharynx Normal Neck: Full Range of Motion, Normal Inspection, Non Tender, Supple, Carotid Bruit Respiratory: Chest Non Tender, Lungs Clear, Normal Breath Sounds, No Accessory Muscle Use, No Respiratory Distress Cardiovascular: Regular Rate, Rhythm, No Edema, No Gallop, No JVD, No Murmur, Normal Peripheral Pulses Gastrointestinal: Normal Bowel Sounds, No Organomegaly, No Pulsatile Mass, Non Tender, Soft Back: Normal Inspection, No CVA Tenderness, No Vertebral Tenderness Extremity: Normal Capillary Refill, Normal Inspection, Normal Range of Motion, Non Tender, No Calf Tenderness, No Pedal Edema Neurologic/Psychiatric: Alert, Oriented x3, No Motor/Sensory Deficits, early childhood 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 FIM Transfers Therapy Code Descriptions/Definitions Functional [place] Measure: 0=Not Assessed/NA 4=Minimal Assistance 1=Total Assistance 5=Supervision or Setup 2=Maximal Assistance 6=Modified [place] 3=Moderate Assistance 7=Complete IndependenceSCALE: Activities may be completed with or without assistive devices. 8-Yyjgjwngfi-dcolvvr completes the activity by him/herself with no assistance from a helper. 5-Set-up or Clean-up Assistance-helper sets up or cleans up; patient completes activity. [place] assists only prior to or following the activity. 4-Supervision or Touching Assistance-helper provides verbal cues and/or touching/steadying and/or contact guard assistance as patient completes activity. Assistance may be provided throughout the activity or intermittently. 3-Partial/Moderate Assistance-helper does LESS THAN HALF the effort. [place] lifts, holds or supports trunk or limbs, but provides less than half the effort. 2-Substantial/Maximal Assistance-helper does MORE THAN HALF the effort. [place] lifts or holds trunk or limbs and provides more than half the effort. 0-Jpgvfbdic-uxhpwo does ALL the effort. Patient does none of the effort to complete the activity. Or, the assistance of 2 or more helpers is required for the patient to complete the activity. If activity was not attempted, code reason: 7-Patient Refused. 9-Not Applicable-not attempted and the patient did not perform the activity before the current illness, exacerbation or injury. 10-Not Attempted due to Environmental Limitations-(lack of equipment, weather restraints, etc.). 88-Not Attempted due to Medical Conditions or Safety Concerns. Roll Left to Right (QC): 6 Sit to Lying (QC): 6 Sit to Stand (QC): 6 Chair/Kck-on-Wioyw Xfer(QC): 6 Car Transfer (QC): 5 Gait Training Does the Patient Walk?: Yes Distance: 150' Walk 10 feet (QC): 6 Walk 50 ft with 2 Turns(QC): 6 Walk 150 ft (QC): 6 Walking 10ft/uneven surface-QC: 6 Gait Persons Needed: 1 Gait Assistive Device: FWW Wheelchair Training Does the Pt Use a Wheelchair?: No Wheel 50 ft with 2 turns (QC): 9 Wheel 150 ft (QC): 9 Stair Training Stair Training: Handrails/: 2 handrails #of Steps: 2 1 Step (curb) (QC): 5 4 Steps (QC): 5 12 Steps (QC): 5 Stairs: Pattern: Step to Balance Picking up an Object (QC): 6 ADL-Treatment Eating (QC): 6 Oral Hygiene (QC): 6 Shower/Bathe Self (QC): 6 Upper Body Dressing (QC): 6 Lower Body Dressing (QC): 6 On/Off Footwear (QC): 6 Toileting Hygiene (QC): 6 Toilet Transfer (QC): 6 Assessment/Plan Assessment and Plan Assess & Plan/Chief Complaint Assessment: (1) Coronary artery disease with unstable angina pectoris (2) Permanent atrial fibrillation (3) CKD (chronic kidney disease) (4) Obstructive sleep apnea (adult) (pediatric) (5) Mixed hyperlipidemia (6) Essential hypertension (7) Obesity (8) Hypothyroidism (9) Cough Plan: Supportive care Gentle IV fluids Meclizine Valium Scopolamine patch 01/02/2022: Continue IV fluids Scopolamine patch 01/03/2022: Check chest x-ray Antitussives 01/04/2022: Monitor cough and vertigo 01/05/2022: Supportive care Discharge Wednesday01/06/2022: Singulair CXR cough 01/07/2022: Cough management 01/08/2022: DC tomorrow (1) Dizziness Status: Acute (2) Generalized weakness Status: Acute (3) Chronic CHF Status: Acute (4) Chronic renal insufficiency Status: Acute (5) Vertigo (6) Obesity Status: Chronic (7) Mixed hyperlipidemia Status: Chronic (8) Essential hypertension Status: Chronic (9) Coronary artery disease with unstable angina pectoris Status: Acute (10) Permanent atrial fibrillation Status: Chronic (11) CKD (chronic kidney disease) Status: Chronic (12) Obstructive sleep apnea (adult) (pediatric) Status: Chronic (13) Hypothyroidism Status: Chronic (14) Pulmonary hypertension ALICIA GASCA DO Jan 08, 2022 05:47
[2022-01-08] MEDS: LEVOTHYROXINE 25 MCG (LEVOTHROID) TAB PO SCH (06:40)
[2022-01-08] MEDS: SUCRALFATE 1 GM (CARAFATE) TAB PO SCH ×4 (06:40→21:03)
[2022-01-08 07:51] VITALS: BP 133/85
--- NOTE | 2022-01-08 08:43 | Occupational Ther Daily Note ---
OT Current Status-Daily Note Subjective Pt alert, sitting in recliner. Pt agrees to therapy. No c/o pain. Pt excited about going home tomorrow. Mental Status/Objective Patient Orientation: Person, Place, Time, Situation ADL-Treatment Pt agrees to shower. Independent with eating. Independent oral care standing at sink using B UE without support from counter or FWW. Independent with toileting and toilet transfer using FWW. Independent with shower sitting on shower bench 90% of the time using grabbars and hand held shower. Pt gathers clothing using FWW independently and completes dressing independently. Therapy Code Descriptions/Definitions Functional [place] Measure: 0=Not Assessed/NA 4=Minimal Assistance 1=Total Assistance 5=Supervision or Setup 2=Maximal Assistance 6=Modified [place] 3=Moderate Assistance 7=Complete IndependenceSCALE: Activities may be completed with or without assistive devices. 4-Fmtmjunpta-pfownpk completes the activity by him/herself with no assistance from a helper. 5-Set-up or Clean-up Assistance-helper sets up or cleans up; patient completes activity. [place] assists only prior to or following the activity. 4-Supervision or Touching Assistance-helper provides verbal cues and/or touching/steadying and/or contact guard assistance as patient completes activity. Assistance may be provided throughout the activity or intermittently. 3-Partial/Moderate Assistance-helper does LESS THAN HALF the effort. [place] lifts, holds or supports trunk or limbs, but provides less than half the effort. 2-Substantial/Maximal Assistance-helper does MORE THAN HALF the effort. [place] lifts or holds trunk or limbs and provides more than half the effort. 9-Vlttkgdob-cvbwsh does ALL the effort. Patient does none of the effort to complete the activity. Or, the assistance of 2 or more helpers is required for the patient to complete the activity. If activity was not attempted, code reason: 7-Patient Refused. 9-Not Applicable-not attempted and the patient did not perform the activity before the current illness, exacerbation or injury. 10-Not Attempted due to Environmental Limitations-(lack of equipment, weather restraints, etc.). 88-Not Attempted due to Medical Conditions or Safety Concerns. Eating (QC): 6 Oral Hygiene (QC): 6 Shower/Bathe Self (QC): 6 Upper Body Dressing (QC): 6 Lower Body Dressing (QC): 6 On/Off Footwear: 6 Toileting Hygiene (QC): 6 Toilet Transfer (QC): 6 Other Treatment Pt ambulates using FWW around 2nd floor with 1 recovery break. Pt completes B UE strengthening and dynamic standing tasks to increase safety and strength for daily functional tasks. Arm bike 4 min standing/3 min sitting at 20 coreas resistance without breaks. Arm pulleys with 1# wt attached to wrists for 3 min to increase strength and AROM of B shldrs. Standing and tossing small objects to designated area with B UE and picking up from varying surface heights. After session, pt lying in bed with call light/phone in reach. All needs met in room. OT Short Term Goals Short Term Goals Time Frame: Jan 07, 2022 Eatin Oral hygiene: 6 Toileting hygiene: 6 Shower/bathe self: 5 Upper body dressin Lower body dressin Putting on/taking off footwear: 5 OT Senior Living Goals Comb Winder Goals Time Frame: Jan 12, 2022 Eating (QC): 6 (met) Oral Hygiene (QC): 6 (met) Toileting Hygiene (QC): 6 (met) Shower/Bathe Self (QC): 6 (met) Upper Body Dressing (QC): 6 (met) Lower Body Dressing (QC): 6 (met) On/Off Footwear (QC): 6 (met) 1=Demonstrate adherence to instructed precautions during ADL tasks. 2=Patient will verbalize/demonstrate understanding of assistive devices/modifications for ADL. 3=Patient will improve strength/tolerance for activity to enable patient to perform ADL's. OT Education/Plan Problem List/Assessment Assessment: Decreased Activ Tolerance, Decreased UE Strength Discharge Recommendations Plan/Recommendations: Continue POC Treatment Plan/Plan of Care Patient would benefit from OT for education, treatment and training to promote independence in ADL's, mobility, safety and/or upper extremity function for ADL's. Plan of Care: ADL Retraining, Cognitive Retraining, Functional Mobility, Group Exercise/Act as Ind, UE Funct Exercise/Act Treatment Duration: Jan 12, 2022 Frequency: At least 5 of 7 days/Wk (IRF) Estimated Hrs Per Day: 1.5 hours per day (75-90 min/day) Agreement: Yes Rehab Potential: Fair Time/GCodes Start Time: :15 Stop Time: 08:45 Total Time Billed (hr/min): 90 Billed Treatment Time 1 visit-ADL 4 (60 min) EX 2 (30 min) NIGHAT MAYORGA Jan 08, 2022 08:43
[2022-01-08] MEDS: MONTELUKAST 10 MG (SINGULAIR) TAB PO SCH (08:59)
[2022-01-08] MEDS: ASPIRIN E.C. 81 MG (ECOTRIN) TAB PO SCH (08:59)
[2022-01-08] MEDS: BENZONATATE 100 MG (TESSALON) CAPSULE PO SCH ×3 (08:59→21:03)
[2022-01-08] MEDS: DOCUSATE SODIUM 100 MG (COLACE) CAP PO SCH ×2 (08:59→21:03)
[2022-01-08] MEDS: PANTOPRAZOLE 40 MG (PROTONIX) TAB PO SCH (08:59)
[2022-01-08] MEDS: LORATADINE (CLARITIN) 10 MG TAB PO SCH (08:59)
[2022-01-08] MEDS: polyethylene glycoL POWDER 17 GM (MIRALAX) PACK PO SCH ×2 (08:59→21:03)
[2022-01-08] MEDS: meTOproloL SUCCINATE 50 MG (TOPROL XL) TAB PO SCH (08:59)
[2022-01-08] MEDS: FUROSEMIDE 40 MG (LASIX) TAB PO SCH (08:59)
[2022-01-08] MEDS: OMEGA 3 (FISH OIL) 1000 MG CAP PO SCH ×3 (08:59→21:03)
[2022-01-08] MEDS: CLOPIDOGREL 75 MG (PLAVIX) TABLET PO SCH (08:59)
[2022-01-08] MEDS: MAGNESIUM OXIDE (MAG-OX)400 MG TAB PO SCH (08:59)
[2022-01-08] MEDS: KCL 20 MEQ TAB (K-DUR) PO SCH (09:02)
[2022-01-08] MEDS: SENNA W/DOCUSATE (SENOKOT S) TABLET PO SCH ×2 (09:03→21:03)
[2022-01-08] MEDS: MICONAZOLE 2% POWDER (DESENEX AF) 90 GM TOP SCH ×2 (09:05→21:04)
--- NOTE | 2022-01-08 11:04 | Physical Therapy Daily Note ---
PT Daily Note-Current Subjective Pt sitting at EOB upon arrival. Pt agrees to PT for QC scoring for d/c tomorrow. Pain Location: No Pain Reported Mental Status Patient Orientation: Person, Place, Time, Situation Transfers SCALE: Activities may be completed with or without assistive devices. 9-Joewsuesmq-galffan completes the activity by him/herself with no assistance from a helper. 5-Set-up or Clean-up Assistance-helper sets up or cleans up; patient completes activity. [place] assists only prior to or following the activity. 4-Supervision or Touching Assistance-helper provides verbal cues and/or touching/steadying and/or contact guard assistance as patient completes activity. Assistance may be provided throughout the activity or intermittently. 3-Partial/Moderate Assistance-helper does LESS THAN HALF the effort. [place] lifts, holds or supports trunk or limbs, but provides less than half the effort. 2-Substantial/Maximal Assistance-helper does MORE THAN HALF the effort. [place] lifts or holds trunk or limbs and provides more than half the effort. 9-Frdnokypx-bwlndm does ALL the effort. Patient does none of the effort to complete the activity. Or, the assistance of 2 or more helpers is required for the patient to complete the activity. If activity was not attempted, code reason: 7-Patient Refused. 9-Not Applicable-not attempted and the patient did not perform the activity before the current illness, exacerbation or injury. 10-Not Attempted due to Environmental Limitations-(lack of equipment, weather restraints, etc.). 88-Not Attempted due to Medical Conditions or Safety Concerns. Roll Left & Right (QC): 6 Sit to Lying (QC): 6 Lying to Sitting/Side of Bed(Q: 6 Sit to Stand (QC): 6 Chair/Ojc-yz-Adgjn Xfer(QC): 6 Toilet Transfer (QC): 6 Car Transfer (QC): 6 Weight Bearing Full Weight Bearing Full Weight Bearing Gait Training Does the Patient Walk?: Yes Distance: 500' Walk 10 feet (QC): 6 Walk 50 ft with 2 Turns(QC): 6 Walk 150 ft (QC): 6 Walking 10ft/uneven surface-QC: 6 Gait Assistive Device: FWW Wheelchair Training Does the Pt Use a Wheelchair?: No Stair Training Stair Training: Handrails/: 2 handrails #of Steps: 8 1 Step (curb) (QC): 6 4 Steps (QC): 6 12 Steps (QC): 7 Stairs: Pattern: Reciprocal Balance Picking up an Object (QC): 6 Exercises Standing: Hamstring curls, Heel/toe raises, Marching Standing Reps: 15 Treatments Pt completes QC scoring items listed above. Pt completes extended amb. as well as NuStep and standing balance washer toss. Pt returns to room to use BR then sits at recliner to order lunch at end of tx. All needs met, call light in hand. Assessment Current Status: Excellent Progress Pt has improved with mobility, balance and activity tolerance. PT Short Term Goals Short Term Goals Time Frame: Jan 09, 2022 Roll Left & Right: 6 Sit to lyin Lying to sitting on side of be: 6 Sit to stand: 4 (SBA) Chair/vzj-ld-isaji transfer: 4 (SBA) Walk 10 feet: 4 (SBA) Walk 50 feet with two turns: 4 (SBA) Walk 150 feet: 4 (SBA) PT Longterm Goals Longterm Goals PT Derrick Barge Operator Goals Time Frame: Jan 23, 2022 Roll Left & Right (QC): 6 Sit to Lying (QC): 6 Lying-Sitting on Side/Bed(QC): 6 Sit to Stand (QC): 6 Chair/Twz-eb-Dczbc Xfer(QC): 6 Toilet Transfer (QC): 6 Car Transfer (QC): 6 Does the Patient Walk: Yes Walk 10 feet (QC): 6 Walk 50ft with 2 Turns (QC): 6 Walk 150 ft (QC): 6 Walking 10ft on Uneven Surface: 6 1 Step (curb) (QC): 4 (SBA) 4 Steps (QC): 4 (SBA) 12 Steps (QC): 88 Picking up an Object (QC): 6 Wheel 50 feet with 2 turns (QC: 9 Wheel 150 feet: 9 PT Plan Treatment/Plan Treatment Plan: Continue Plan of Care Treatment Plan: Education, Functional Activity Abdiel, Functional Strength, Gait, Safety, Therapeutic Exercise, Transfers Treatment Duration: Jan 23, 2022 Frequency: At least 5 of 7 days/Wk (IRF) Estimated Hrs Per Day: 1.5 hours per day Patient and/or Family Agrees t: Yes Time/GCodes Time In: 930 Time Out: 1100 Total Billed Treatment Time: 90 Total Billed Treatment 1, GT x2 (30m), EX x2 (30m) & FA x2 (30m) NIKO HOFFMAN ADVERTISING SALES MANAGER Jan 08, 2022 11:04
[2022-01-08] MEDS: ACETAMINOPHEN 325 MG TABLET PO PRN (12:04)
[2022-01-08] MEDS ORDERED: SCOPOLAMINE 1.5 MG (TRANSDERM-SCOP) PATCH TD ONE (12:45)
[2022-01-08] MEDS: RIVAROXABAN 15 MG TABLET (XARELTO) PO SCH (16:05)
[2022-01-08 20:11] VITALS: BP 129/61
[2022-01-08] MEDS: [UNRECOGNIZED DRUG - REMARK] IH PRN (21:04)
[2022-01-09] MEDS: SUCRALFATE 1 GM (CARAFATE) TAB PO SCH (06:15)
[2022-01-09] MEDS: LEVOTHYROXINE 25 MCG (LEVOTHROID) TAB PO SCH (06:15)
--- NOTE | 2022-01-09 06:33 | Discharge Summary ---
Diagnosis/Chief Complaint Date of Admission Jan 01, 2022 at 15:51 Date of Discharge Discharge Date: Jan 09, 2022 Discharge Diagnosis Assessment: (1) Coronary artery disease with unstable angina pectoris (2) Permanent atrial fibrillation (3) CKD (chronic kidney disease) (4) Obstructive sleep apnea (adult) (pediatric) (5) Mixed hyperlipidemia (6) Essential hypertension (7) Obesity (8) Hypothyroidism (9) Cough Plan: Supportive care Gentle IV fluids Meclizine Valium Scopolamine patch 01/02/2022: Continue IV fluids Scopolamine patch 01/03/2022: Check chest x-ray Antitussives 01/04/2022: Monitor cough and vertigo 01/05/2022: Supportive care Discharge Wednesday01/06/2022: Singulair CXR cough 01/07/2022: Cough management 01/08/2022: DC tomorrow (1) Dizziness Status: Acute (2) Generalized weakness Status: Acute (3) Chronic CHF Status: Acute (4) Chronic renal insufficiency Status: Acute (5) Vertigo (6) Obesity Status: Chronic (7) Mixed hyperlipidemia Status: Chronic (8) Essential hypertension Status: Chronic (9) Coronary artery disease with unstable angina pectoris Status: Acute (10) Permanent atrial fibrillation Status: Chronic (11) CKD (chronic kidney disease) Status: Chronic (12) Obstructive sleep apnea (adult) (pediatric) Status: Chronic (13) Hypothyroidism Status: Chronic (14) Pulmonary hypertension Discharge Summary Discharge Physical Examination Allergies: Coded Allergies: Penicillins (Verified Allergy, Unknown, 07/21/18) propoxyphene (Verified Allergy, Unknown, 07/21/18) amiodarone (Verified Adverse Reaction, Unknown, NAUSEA, 01/07/21) Vitals & I&Os Vital Signs Date Time Temp Pulse Resp B/P (MAP) Pulse Ox O2 Delivery O2 Flow Rate FiO2 01/09/22 11:21 36.4 77 18 119/72 96 Room Air 0.00 General Appearance: Alert, Oriented X3, Cooperative Respiratory: Clear to Auscultation Cardiovascular: Regular Rate Neuro: Normal Gait, Normal Speech, Strength at 5/5 X4 Ext Psych/Mental Status: Mental Status NL Hospital Course Was the Problem List Reviewed?: Yes Pt had an uneventful 9 day hospital course after she was admitted for dizziness and syncope. She did require IV fluids. Scopolamine patch really worked well for her. Cough occurred which is acute on chronic, prompting antitussives for that. Overall she was much improved and was deemed stable for discharge. Labs (last 24 hrs) Laboratory Tests 01/02/22 05:17: White Blood Count 6.5, Red Blood Count 4.49, Hemoglobin 11.5, Hematocrit 37, Mean Corpuscular Volume 83, Mean Corpuscular Hemoglobin 26, Mean Corpuscular Hemoglobin Concent 31L, Red Cell Distribution Width 14.5, Platelet Count 249, Mean Platelet Volume 10.0, Immature Granulocyte % (Auto) 0, Neutrophils (%) (Auto) 60, Lymphocytes (%) (Auto) 26, Monocytes (%) (Auto) 10, Eosinophils (%) (Auto) 3, Basophils (%) (Auto) 1, Neutrophils # (Auto) 3.9, Lymphocytes # (Auto) 1.7, Monocytes # (Auto) 0.7, Eosinophils # (Auto) 0.2, Basophils # (Auto) 0.1, Immature Granulocyte # (Auto) 0.0, Sodium Level 143, Potassium Level 3.8, Chloride Level 108H, Carbon Dioxide Level 24, Anion Gap 11, Blood Urea Nitrogen 25H, Creatinine 1.37H, Estimat Glomerular Filtration Rate 37, BUN/Creatinine Ratio 18, Glucose Level 83, Calcium Level 9.0, Corrected Calcium 9.2, Total Bilirubin 0.6, Aspartate Amino Transf (AST/SGOT) 15, Alanine Aminotransferase (ALT/SGPT) 13, Alkaline Phosphatase 88, Total Protein 6.5, Albumin 3.7 01/05/22 05:24: White Blood Count 7.2, Red Blood Count 4.60, Hemoglobin 11.7, Hematocrit 38, Mean Corpuscular Volume 83, Mean Corpuscular Hemoglobin 25, Mean Corpuscular Hemoglobin Concent 31L, Red Cell Distribution Width 14.6H, Platelet Count 271, Mean Platelet Volume 9.7, Immature Granulocyte % (Auto) 0, Neutrophils (%) (Auto) 65, Lymphocytes (%) (Auto) 20, Monocytes (%) (Auto) 11, Eosinophils (%) (Auto) 3, Basophils (%) (Auto) 1, Neutrophils # (Auto) 4.7, Lymphocytes # (Auto) 1.4, Monocytes # (Auto) 0.8, Eosinophils # (Auto) 0.2, Basophils # (Auto) 0.1, Immature Granulocyte # (Auto) 0.0, Sodium Level 142, Potassium Level 4.0, Chloride Level 105, Carbon Dioxide Level 25, Anion Gap 12, Blood Urea Nitrogen 28H, Creatinine 1.50H, Estimat Glomerular Filtration Rate 34, BUN/Creatinine Ratio 19, Glucose Level 106H, Calcium Level 9.1, Corrected Calcium 9.3, Total Bilirubin 0.4, Aspartate Amino Transf (AST/SGOT) 15, Alanine Aminotransferase (ALT/SGPT) 15, Alkaline Phosphatase 90, Total Protein 6.7, Albumin 3.8 Pending Labs Laboratory Tests 01/02/22 05:17: White Blood Count 6.5, Red Blood Count 4.49, Hemoglobin 11.5, Hematocrit 37, Mean Corpuscular Volume 83, Mean Corpuscular Hemoglobin 26, Mean Corpuscular Hemoglobin Concent 31, Red Cell Distribution Width 14.5, Platelet Count 249, Mean Platelet Volume 10.0, Immature Granulocyte % (Auto) 0, Neutrophils (%) (Auto) 60, Lymphocytes (%) (Auto) 26, Monocytes (%) (Auto) 10, Eosinophils (%) (Auto) 3, Basophils (%) (Auto) 1, Neutrophils # (Auto) 3.9, Lymphocytes # (Auto) 1.7, Monocytes # (Auto) 0.7, Eosinophils # (Auto) 0.2, Basophils # (Auto) 0.1, Immature Granulocyte # (Auto) 0.0, Sodium Level 143, Potassium Level 3.8, Chloride Level 108, Carbon Dioxide Level 24, Anion Gap 11, Blood Urea Nitrogen 25, Creatinine 1.37, Estimat Glomerular Filtration Rate 37, BUN/Creatinine Ratio 18, Glucose Level 83, Calcium Level 9.0, Corrected Calcium 9.2, Total Bilirubin 0.6, Aspartate Amino Transf (AST/SGOT) 15, Alanine Aminotransferase (ALT/SGPT) 13, Alkaline Phosphatase 88, Total Protein 6.5, Albumin 3.7 01/05/22 05:24: White Blood Count 7.2, Red Blood Count 4.60, Hemoglobin 11.7, Hematocrit 38, Mean Corpuscular Volume 83, Mean Corpuscular Hemoglobin 25, Mean Corpuscular Hemoglobin Concent 31, Red Cell Distribution Width 14.6, Platelet Count 271, Mean Platelet Volume 9.7, Immature Granulocyte % (Auto) 0, Neutrophils (%) (Auto) 65, Lymphocytes (%) (Auto) 20, Monocytes (%) (Auto) 11, Eosinophils (%) (Auto) 3, Basophils (%) (Auto) 1, Neutrophils # (Auto) 4.7, Lymphocytes # (Auto) 1.4, Monocytes # (Auto) 0.8, Eosinophils # (Auto) 0.2, Basophils # (Auto) 0.1, Immature Granulocyte # (Auto) 0.0, Sodium Level 142, Potassium Level 4.0, Chloride Level 105, Carbon Dioxide Level 25, Anion Gap 12, Blood Urea Nitrogen 28, Creatinine 1.50, Estimat Glomerular Filtration Rate 34, BUN/Creatinine Ratio 19, Glucose Level 106, Calcium Level 9.1, Corrected Calcium 9.3, Total Bilirubin 0.4, Aspartate Amino Transf (AST/SGOT) 15, Alanine Aminotransferase (ALT/SGPT) 15, Alkaline Phosphatase 90, Total Protein 6.7, Albumin 3.8 Discharge Home Medications: Active Scripts Active Lotrimin AF (Miconazole Nitrate) 2 % Powder 0 Gm TOP BID BID prn Montelukast Sodium 10 Mg Tablet 10 Mg PO DAILY@0800 Robitussin Ac (Codeine) Syrup (Guaifenesin/Codeine Phosphate) 10 Ml Syrp 10 Ml PO Q4H PRN Tessalon Perles (Benzonatate) 100 Mg Capsule 200 Mg PO TID Proair Hfa (Albuterol Sulfate) 90 Mcg Hfa.aer.ad 0 Gm IH Q2H PRN 2 puffs [id number] prn Metoprolol Succinate 50 Mg Tab.er.24h 50 Mg PO DAILY 30 Days Clopidogrel (Clopidogrel Bisulfate) 75 Mg Tablet 75 Mg PO DAILY Xarelto Tablet (Rivaroxaban) 15 Mg Tablet 15 Mg PO DAILY@1700 Reported Tylenol Arthritis (Acetaminophen) 650 Mg Tablet.er 650-1,300 Mg PO Q8H PRN Nitroglycerin 0.4 Mg Tab.subl 0.4 Mg SL UD PRN Fish Oil 1,000 mg Capsule (Max[place]wny 3 Polyunsat Fatty Acids) 1,000 Mg Cap 1,000 Mg PO TID Sucralfate 1 Gm Tablet 1 Gm PO ACHS LAST FILLED 08-19-2020 #240/60 DAY SUPPLY Diltiazem 24Hr ER (Diltiazem HCl) 360 Mg Cap.er.24h 360 Mg PO DAILY Atorvastatin Calcium 40 Mg Tablet 40 Mg PO DAILY Magnesium Oxide 250 Mg Tablet 250 Mg PO DAILY Aspirin EC (Aspirin) 81 Mg Tablet.dr 81 Mg PO DAILY Pantoprazole Sodium 40 Mg Tablet.dr 40 Mg PO DAILY Metoclopramide HCl 5 Mg Tablet 5 Mg PO TID PRN Potassium Chloride 20 Meq Tab.er.prt 20 Meq PO DAILY Furosemide 40 Mg Tablet 40 Mg PO DAILY Advair 100-50 Diskus (Fluticasone/Salmeterol) 1 Each Blst.w.dev 1 Puff INH BID PRN Diltiazem HCl 60 Mg Tablet 60 Mg PO PRN PRN Meclizine HCl 25 Mg Tablet 25 Mg PO TID PRN Synthroid (Levothyroxine Sodium) 25 Mcg Tablet 25 Mcg PO DAILY Instructions to patient/family Please see electronic discharge instructions given to patient. Diagnosis/Problems Diagnosis/Problems (1) Dizziness Status: Acute (2) Generalized weakness Status: Acute (3) Chronic CHF Status: Acute (4) Chronic renal insufficiency Status: Acute (5) Vertigo (6) Obesity Status: Chronic (7) Mixed hyperlipidemia Status: Chronic (8) Essential hypertension Status: Chronic (9) Coronary artery disease with unstable angina pectoris Status: Acute (10) Permanent atrial fibrillation Status: Chronic (11) CKD (chronic kidney disease) Status: Chronic (12) Obstructive sleep apnea (adult) (pediatric) Status: Chronic (13) Hypothyroidism Status: Chronic (14) Pulmonary hypertension ALICIA GASCA DO Jan 09, 2022 06:33
[2022-01-09 07:44] VITALS: BP 119/72
[2022-01-09] MEDS: SENNA W/DOCUSATE (SENOKOT S) TABLET PO SCH (08:16)
[2022-01-09] MEDS: LORATADINE (CLARITIN) 10 MG TAB PO SCH (08:16)
[2022-01-09] MEDS: OMEGA 3 (FISH OIL) 1000 MG CAP PO SCH (08:16)
[2022-01-09] MEDS: FUROSEMIDE 40 MG (LASIX) TAB PO SCH (08:16)
[2022-01-09] MEDS: MONTELUKAST 10 MG (SINGULAIR) TAB PO SCH (08:16)
[2022-01-09] MEDS: CLOPIDOGREL 75 MG (PLAVIX) TABLET PO SCH (08:16)
[2022-01-09] MEDS: DOCUSATE SODIUM 100 MG (COLACE) CAP PO SCH (08:16)
[2022-01-09] MEDS: ASPIRIN E.C. 81 MG (ECOTRIN) TAB PO SCH (08:16)
[2022-01-09] MEDS: meTOproloL SUCCINATE 50 MG (TOPROL XL) TAB PO SCH (08:17)
[2022-01-09] MEDS: KCL 20 MEQ TAB (K-DUR) PO SCH (08:17)
[2022-01-09] MEDS: PANTOPRAZOLE 40 MG (PROTONIX) TAB PO SCH (08:17)
[2022-01-09] MEDS: polyethylene glycoL POWDER 17 GM (MIRALAX) PACK PO SCH (08:17)
[2022-01-09] MEDS: MAGNESIUM OXIDE (MAG-OX)400 MG TAB PO SCH (08:17)
[2022-01-09] MEDS: BENZONATATE 100 MG (TESSALON) CAPSULE PO SCH (08:17)
[2022-01-09] MEDS: MICONAZOLE 2% POWDER (DESENEX AF) 90 GM TOP SCH (08:38)
--- NOTE | 2022-01-09 09:43 | Cardiology Progress Note ---
Subjective Date Seen by Provider: Jan 09, 2022 Time Seen by Provider: 09:43 Subjective/Events-last exam Patient was seen at bedside sitting comfortably, no new complaint Review of Systems General: No Chills, No Night Sweats, No Fatigue, No Malaise, No Appetite, No Other HEENT: No Head Aches, No Visual Changes, No Eye Pain, No Ear Pain, No Dysphasia, No Sinus Congestion, No Post Nasal Drip, No Sore Throat, No Other Pulmonary: No Dyspnea, No Cough, No Pleuritic Chest Pain, No Other Cardiovascular: No: Chest Pain, Palpitations, Orthopnea, Paroxysmal Noc. Dyspnea, Edema, Lt Headedness, Other Objective-Cardiology Exam Last Set of Vital Signs Vital Signs 01/08/22 01/09/22 01/09/22 08:29 07:44 09:08 Temp 36.4 Pulse 77 Resp 18 B/P (MAP) 119/72 (88) Pulse Ox 96 O2 Delivery Room Air O2 Flow Rate 0.00 General: Alert, Oriented X3, Cooperative HEENT: Atraumatic, PERRLA Neck: Supple, No JVD, No Thyromegaly Lungs: Clear to Auscultation, Normal Air Movement Heart: Regular Rate, Normal S1, Normal S2, No Murmurs Abdomen: Normal Bowel Sounds, Soft, No Tenderness, No Hepatosplenomegaly, No Masses Extremities: No Clubbing, No Cyanosis, No Edema, Normal Pulses, No Tenderness/Swelling Skin: No Rashes, No Breakdown, No Significant Lesion Neuro: Normal Gait, Normal Speech, Strength at 5/5 X4 Ext, Normal Tone, Sensation Intact Psych/Mental Status: Mental Status NL, Mood NL A/P-Cardiology Admission Diagnosis Dizziness Coronary artery disease Atrial fibrillation Hypertension Assessment/Plan Dizziness and lightheadedness, received scopolamine patch, feeling better. Generalized weakness, unsteady gait, reporting improvement. Coronary artery disease, History of multiple interventions in the past, had a total of 3 stents. Underwent cardiac catheterization on November 15, 2018 revealing moderate stenosis at the ostium of the right coronary artery, heavily calcified. 2 stents in the mid right coronary artery are patent with small vessel disease distally. Calcified left main coronary artery is moderate stenosis, nonobstructive disease. Patent stents in the mid circumflex complex artery with no obstructive disease, mild disease in LAD. Repeat cardiac catheterization was done on June 29, 2019 at balloon angioplasty to the mid right coronary artery and stenting of the ostium of the right coronary artery using Maryann 3 x 15 mm expanded to 3.25 mm with excellent results. Still have moderate stenosis at the mid left main, mid LAD and mid circumflex artery, small vessel disease. Cardiac catheterization on January 08, 2021 showing mild disease in the left system, severe stenosis at the ostium of the right coronary artery and severe in-stent restenosis in the mid right coronary artery status post multiple balloon angioplasty to the mid right coronary artery with excellent results. Multiple balloon angioplasty using a noncompliant balloon and cutting balloon to the ostium of the right coronary artery then deployment of Maryann 3 x 50 mm expanded to 3.2 mm with excellent results. Currently clinically stable. Maintained on aspirin, Plavix and Xarelto as an outpatient. continue on aspirin and Xarelto, Plavix was stopped on this admission Permanent atrial fibrillation, rate is controlled. Clinically stable. Tolerating current medication well. Continue to monitor [id number] score 5, maintained on Xarelto Echocardiogram done in August 2020 showing normal LV size with EF 55-65%, Aortic sclerosis without stenosis, PA 45-50mmHg. 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 Continue to monitor Peripheral edema, improved. Hypertension, controlled, continue to monitor Hyperlipidemia, controlled, continue to monitor Carotid artery stenosis, mild bilateral nonobstructive disease per carotid duplex done August 2020. GEOFF THOMSON MD Jan 09, 2022 09:43
[2022-01-09 11:21] VITALS: BP 119/72
--- NOTE | 2022-01-09 11:50 | Therapy Team Discharge Summary ---
Therapy Discharge Summary Discharge Recommendations Date of Discharge Jan 09, 2022 at 11:27 Physical Therapy Patient came to rehab with CAD, angina, afib. Upon evaluation patient performs rolling and supine <-> sit with independence, sit <-> stand and transfers CGA, car transfer CGA, ambulate 150' with a rolling walker with CGA (including 50' with at least 2 turns of 90 degrees and 10' over an uneven surface), went up and down 4 steps using 2 handrails with CGA, and picked up an object from the floor using a director export with CGA. Patient has been performing bed mobility and transfer training, balance and endurance training, functional strengthening, stair training, gait training, and education. Patient has made good progress and has met all of her alf goals. Now, patient performs rolling and supine <-> sit with independence, sit <-> stand and transfers with independence, car transfer independent, ambulates 500' with a rolling walker with independence (including 50' with at least 2 turns of 90 degrees and 10' over an uneven surface), can go up an down 8 steps using 2 handrails with independence, and can order picker an object from the floor with independence. Patient is being discharged from this facility today and will be discharged from PT at this time. Roll Left to Right (QC): 6 Sit to Lying (QC): 6 Lying to Sitting/Side of Bed(Q: 6 Sit to Stand (QC): 6 Chair/Qst-nj-Cwjcl Xfer(QC): 6 Toilet Transfer (QC): 5 Car Transfer (QC): 6 Does the Patient Walk: Yes Mode of Locomotion: Walk Anticipated Mode of Locomotion: Walk Walk 10 feet (QC): 6 Walk 50 ft with 2 Turns(QC): 6 Walk 150 ft (QC): 6 Walking 10ft on uneven surface: 6 Distance: 150'x2, 120' Gait Assistive Device: FWW Does the Pt Use a Wheelchair: No Wheel 50 ft with 2 turns (QC): 9 Wheel 150 ft (QC): 9 #of Steps: 8 1 Step (curb) (QC): 6 4 Steps (QC): 6 12 Steps (QC): 7 Balance Sitting Static: Normal Balance Sitting Dynamic: Normal Balance-Standing Static: Fair Picking up an Object (QC): 6 Occupational Therapy Decreased Activ Tolerance, Decreased UE Strength Eating (QC): 6 Oral Hygiene (QC): 6 Shower/Bathe Self (QC): 6 Upper Body Dressing (QC): 6 Lower Body Dressing (QC): 6 On/Off Footwear (QC): 6 Toileting Hygiene (QC): 6 PT Custodial Goals Custodial Goals PT Custodial Goals Time Frame: Jan 23, 2022 Roll Left to Right (QC): 6 Sit to Lying (QC): 6 Lying-Sitting on Side/Bed(QC): 6 Sit to Stand (QC): 6 Chair/Yjn-qb-Afhgs Xfer(QC): 6 Car Transfer (QC): 6 Does the Patient Walk: Yes Walk 10 feet (QC): 6 Walk 10ft-Uneven Surface(QC): 6 Walk 50ft with 2 Turns (QC): 6 Walk 150 ft (QC): 6 Wheel 50 feet with 2 turns (QC: 9 1 Step (curb) (QC): 4 (SBA) 4 Steps (QC): 4 (SBA) 12 Steps (QC): 88 Picking up an Object (QC): 6 OT Custodial Goals Custodial Goals Time Frame: Jan 12, 2022 Eating (QC): 6 (met) Oral Hygiene (QC): 6 (met) Shower/Bathe Self (QC): 6 (met) Upper Body Dressing (QC): 6 (met) Lower Body Dressing (QC): 6 (met) On/Off Footwear (QC): 6 (met) Toileting Hygiene (QC): 6 (met) Toilet/Commode Transfer (QC): 6 1=Demonstrate adherence to instructed precautions during ADL tasks. 2=Patient will verbalize/demonstrate understanding of assistive devices/m odifications for ADL. 3=Patient will improve strength/tolerance for activity to enable patient to perform ADL's. CONOR PEARSON PT Jan 09, 2022 11:50
--- NOTE | 2022-01-09 12:11 | Therapy Team Discharge Summary ---
Therapy Discharge Summary Discharge Recommendations Date of Discharge Jan 09, 2022 at 11:27 Therapy D/C Recommendations: Home Independently Physical Therapy Roll Left to Right (QC): 6 Sit to Lying (QC): 6 Lying to Sitting/Side of Bed(Q: 6 Sit to Stand (QC): 6 Chair/Hts-ds-Wuoui Xfer(QC): 6 Toilet Transfer (QC): 5 Car Transfer (QC): 6 Does the Patient Walk: Yes Mode of Locomotion: Walk Anticipated Mode of Locomotion: Walk Walk 10 feet (QC): 6 Walk 50 ft with 2 Turns(QC): 6 Walk 150 ft (QC): 6 Walking 10ft on uneven surface: 6 Distance: 150'x2, 120' Gait Assistive Device: FWW Does the Pt Use a Wheelchair: No Wheel 50 ft with 2 turns (QC): 9 Wheel 150 ft (QC): 9 #of Steps: 8 1 Step (curb) (QC): 6 4 Steps (QC): 6 12 Steps (QC): 7 Balance Sitting Static: Normal Balance Sitting Dynamic: Normal Balance-Standing Static: Fair Picking up an Object (QC): 6 Occupational Therapy Pt admitted to ARU with debility. At time of evaluation, she was SBA-CGA for toileting, footwear, lower body dressing, bathing, and oral care, set up for upper body dressing, and indep with eating. During her rehab stay, OT focused on safety, endurance, balance, strengthening, and energy conservation strategies in order to improve performance and independence in adls and functional mobility. Pt made good progress and met all of her intermission coordinator goals. See below for current levels of assist. Pt has discharged from this facility and will be discharged from OT at this time. Decreased Activ Tolerance, Decreased UE Strength Eating (QC): 6 Oral Hygiene (QC): 6 Shower/Bathe Self (QC): 6 Upper Body Dressing (QC): 6 Lower Body Dressing (QC): 6 On/Off Footwear (QC): 6 Toileting Hygiene (QC): 6 PT Snf Goals Net Application Support Specialist Goals PT Net Application Support Specialist Goals Time Frame: Jan 23, 2022 Roll Left to Right (QC): 6 Sit to Lying (QC): 6 Lying-Sitting on Side/Bed(QC): 6 Sit to Stand (QC): 6 Chair/Wzc-ng-Gomxv Xfer(QC): 6 Car Transfer (QC): 6 Does the Patient Walk: Yes Walk 10 feet (QC): 6 Walk 10ft-Uneven Surface(QC): 6 Walk 50ft with 2 Turns (QC): 6 Walk 150 ft (QC): 6 Wheel 50 feet with 2 turns (QC: 9 1 Step (curb) (QC): 4 (SBA) 4 Steps (QC): 4 (SBA) 12 Steps (QC): 88 Picking up an Object (QC): 6 OT Net Application Support Specialist Goals Snf Goals Time Frame: Jan 12, 2022 Eating (QC): 6 (met) Oral Hygiene (QC): 6 (met) Shower/Bathe Self (QC): 6 (met) Upper Body Dressing (QC): 6 (met) Lower Body Dressing (QC): 6 (met) On/Off Footwear (QC): 6 (met) Toileting Hygiene (QC): 6 (met) Toilet/Commode Transfer (QC): 6 (met) 1=Demonstrate adherence to instructed precautions during ADL tasks. 2=Patient will verbalize/demonstrate understanding of assistive devices/modifications for ADL. 3=Patient will improve strength/tolerance for activity to enable patient to perform ADL's. Ivet Warren OT Jan 09, 2022 12:11
== END 2022-01-09 11:27 | disposition home or self-care (01) | DRG 149 ==
PROVIDERS: ADMIT Internal Medicine; ATTEND Internal Medicine
DX: R42 Dizziness and giddiness (principal); I25.110 Atherosclerotic heart disease of native coronary artery with unstable angina pectoris; I13.0 Hypertensive heart and chronic kidney disease with heart failure and stage 1 through stage 4 chronic kidney disease, or unspecified chronic kidney disease; I48.21 Permanent atrial fibrillation; R11.2 Nausea with vomiting, unspecified; R53.1 Weakness; I50.9 Heart failure, unspecified; R26.81 Unsteadiness on feet; N18.30 Chronic kidney disease, stage 3 unspecified; G47.33 Obstructive sleep apnea (adult) (pediatric); I27.20 Pulmonary hypertension, unspecified; J44.9 Chronic obstructive pulmonary disease, unspecified; E03.9 Hypothyroidism, unspecified; E78.2 Mixed hyperlipidemia; K59.00 Constipation, unspecified; R05.8 Other specified cough; E66.9 Obesity, unspecified; K21.9 Gastro-esophageal reflux disease without esophagitis; M19.91 Primary osteoarthritis, unspecified site; I25.2 Old myocardial infarction; Z79.01 Long term (current) use of anticoagulants; Z87.891 Personal history of nicotine dependence; Z95.5 Presence of coronary angioplasty implant and graft; Z79.82 Long term (current) use of aspirin; Z88.0 Allergy status to penicillin; Z88.8 Allergy status to other drugs, medicaments and biological substances; Z68.34 Body mass index [BMI] 34.0-34.9, adult
CPT/HCPCS: 36415; 71045; 71046; 80053; 85025; 93306; 94760